=== PATIENT | male | born 1960 | race Caucasian/White ===

== ENCOUNTER 2016-04-27 03:38 | Inpatient (IN) | payer MEDICARE, OTHER ==
[2016-04-27 09:16] LABS: Glucose,Whole Blood 149 mg/dL (75-99)
[2016-04-27] MEDS ORDERED: NITROGLYCERIN SL TABS 0.4 MG TAB SUBLINGUAL PRN (09:58)
[2016-04-27] MEDS ORDERED: ACETAMINOPHEN TAB 325 MG TAB PO PRN (10:03)
[2016-04-27] MEDS ORDERED: FUROSEMIDE 20 MG TAB PO SCH (10:15)
[2016-04-27] MEDS ORDERED: LISINOPRIL 20 MG TAB PO SCH (10:15)
[2016-04-27 10:47] LABS: Basophils % (A) 0 %; CH 33.9; CHCM 32.3; Eosinophils # (A) 0.1 k/uL (0-0.7); Eosinophils % (A) 1 %; HCT 40.8 % (39.0-53.0); HDW 3.01; HGB 13.3 gm/dL (13.0-17.5); Luc # (Auto) 0.11; Luc % (Auto) 1; Lymphocytes # (A) 0.6 k/uL (1.0-4.8); Lymphocytes % (A) 6 %; MCH 34.3 pg (25.0-35.0); MCHC 32.5 g/dL (31.0-37.0); MCV 105.5 fL (80.0-100.0); Macrocytosis Moderate; Mean Platelet Volume 7.4; Monocytes # (A) 0.7 k/uL (0-1.0); Monocytes % (A) 7 %; Neutrophils # (A) 8.6 k/uL (1.3-7.7); Neutrophils % (A) 85 %; RBC 3.87 m/uL (4.30-5.90); RDW 15.2 % (11.5-15.5); WBC 10.1 k/uL (3.8-10.6); WBC (Perox) 11.61
[2016-04-27] MEDS ORDERED: HYDROmorphone 1 MG/ML 1 ML SYRINGE IVP STA (11:12)
[2016-04-27 11:19] LABS: Creatine Kinase 76 U/L (55-170)
[2016-04-27 11:29] LABS: Calcium 9.6 mg/dL (8.4-10.2); Potassium 5.3 mmol/L (3.5-5.1)
[2016-04-27 11:32] LABS: Creatine Kinase MB 0.7 ng/mL (0.0-2.4); Troponin I <0.012 ng/mL (0.000-0.034)
[2016-04-27] MEDS: HEPARIN SODIUM,PORCINE 5,000 UNIT/ML 1 ML VIAL SQ SCH ×2 (12:04→23:35)
[2016-04-27 12:07] LABS: Glucose,Whole Blood 142 mg/dL (75-99)
--- NOTE | 2016-04-27 12:37 | CONS ---
DATE OF CONSULTATION: This is a 56-year-old gentleman who apparently had a cerebral aneurysm several years ago and had paraplegia. He has full function of his bowel and bladder and also her upper extremity motor function, but is confined to a wheelchair, does not do much activity, and lives at [facility]. He has apparently had some straining effort getting out of the wheelchair and then now complains of pain in the midsternal area with tenderness over the left fifth rib or so at the costochondral junction. With these symptoms, he came into the hospital. His initial troponin was normal at [place]. His pain is very atypical. EKG apparently was unremarkable in [place]. We will repeat another EKG today. There is evidence of sinus mechanism, nonspecific T wave changes with slightly leftward axis, His initial troponin was unremarkable. He is here with a diagnosis of possible unstable angina. The pain seems atypical. The patient is relatively comfortable, and I am recommending additional troponin levels for this patient and also symptomatic treatment for his pain and subcu heparin. He is resting comfortably. PAST MEDICAL HISTORY: 1. Cerebral aneurysm 7 years ago, details unavailable apparently since then, he has developed weakness of his both lower extremities and is now confined to a wheelchair. 2. History of hypertension. 3. Type 2 diabetes mellitus. 4. Hypertension. 5. History of seizure disorder on Keppra. No documented evidence of myocardial infarction. Medications at home include: 1. Keppra. 2. Amlodipine. 3. Effexor. 4. Omeprazole. 5. Lisinopril. 6. Lantus. 7. Humalog insulin. 8. Fenofibrate. 9. Coreg 25 mg b.i.d. 10. Acetaminophen. On examination, blood pressure is 170/70, pulse rate is 70 per minute, regular. HEENT: Unremarkable. Fundus was not examined by me. Neck is supple. No JVD. I do not hear a carotid bruit. Heart exam reveals S1, S2 with somewhat distant heart sounds. No significant murmurs. Lungs are clear. ABDOMEN: Soft. There was chest wall tenderness. Lower extremities reveal diminished pulses. There is central nervous system reveals weakness of both lower extremity motor function. EKG revealed sinus mechanism, nonspecific lateral ST-T changes. Initial troponin is normal. IMPRESSION: 1. Probable musculoskeletal pain. 2. History of paraplegia following intracranial aneurysm; details unavailable. 3. Hypertension. 4. Type 2 diabetes mellitus. 5. Hypercholesterolemia. RECOMMENDATIONS: I am recommending an echocardiogram and treated with some subcu heparin and treat the pain symptomatically with a little Dilaudid and Naprosyn and based on clinical course, I will make further recommendation. Additional troponins have been ordered. Thank you very much for the consult.
--- NOTE | 2016-04-27 14:08 | XR ---
One View ChestHISTORY: CHF.COMPARISON: 05/25/2015Subsegmental changes within the left lower lobe ar e stable. HEART: Enlarged. No pneumothorax. Tiny effusions not excluded. IMPRESSION1. Left lower lobe atelectasis or infiltrate with tiny effusion. 2. Cardiomegaly
[2016-04-27] MEDS: SODIUM CHLORIDE 0.9% 1,000 ML IV SCH (15:44)
[2016-04-27 16:44] LABS: Creatine Kinase 64 U/L (55-170)
[2016-04-27 16:55] LABS: Creatine Kinase MB 0.5 ng/mL (0.0-2.4); Troponin I <0.012 ng/mL (0.000-0.034)
[2016-04-27 17:36] LABS: Glucose,Whole Blood 144 mg/dL (75-99)
[2016-04-27] MEDS ORDERED: ONDANSETRON 4 MG/2 ML VIAL IVP PRN (18:06)
[2016-04-27] MEDS: ALLOPURINOL 100 MG TAB PO SCH (20:41)
[2016-04-27] MEDS: CALCIUM CARB-VIT D 500MG-200UN 1 EACH TAB PO SCH ×2 (20:42→23:33)
[2016-04-27] MEDS: CARVEDILOL 12.5 MG TAB PO SCH ×2 (20:42→22:10)
[2016-04-27] MEDS: VENLAFAXINE HCL ER 150 MG CAP PO SCH (20:42)
[2016-04-27] MEDS: amLODIPine 5 MG TAB PO SCH ×2 (20:42→22:10)
[2016-04-27] MEDS: levETIRAcetam 500 MG TAB PO SCH ×2 (20:42→23:33)
[2016-04-27] MEDS: INSULIN LISPRO (humaLOG) 300 UNIT/3 ML VIAL SQ SCH ×3 (20:42→23:36)
[2016-04-27 20:59] LABS: Glucose,Whole Blood 149 mg/dL (75-99)
[2016-04-27] MEDS: traMADol 50 MG TAB PO PRN (22:10)
[2016-04-27] MEDS: DIVALPROEX 500 MG TABLET.DR PO SCH (23:32)
[2016-04-27] MEDS: FERROUS SULFATE 325 MG TAB PO SCH (23:32)
[2016-04-27] MEDS: ATORVASTATIN 10 MG TAB PO SCH (23:33)
[2016-04-27] MEDS: FENOFIBRATE 160 MG TAB PO SCH (23:35)
[2016-04-27] MEDS: INSULIN GLARGINE 100 UNIT/ML 10 ML VIAL SQ SCH (23:36)
[2016-04-28] MEDS: amLODIPine 5 MG TAB PO SCH ×2 (06:44→21:23)
[2016-04-28] MEDS: CARVEDILOL 12.5 MG TAB PO SCH ×2 (06:44→17:58)
[2016-04-28] MEDS: DIVALPROEX 500 MG TABLET.DR PO SCH ×2 (06:44→17:57)
[2016-04-28 06:59] LABS: Calcium 9.2 mg/dL (8.4-10.2)
[2016-04-28 07:08] LABS: Glucose,Whole Blood 158 mg/dL (75-99)
[2016-04-28] MEDS ORDERED: INSULIN REGULAR 100 UNIT/ML VIAL SQ ONE (08:20)
--- NOTE | 2016-04-28 08:20 | HP ---
DATE OF ADMISSION: The patient is a 56-year-old with history of cerebral aneurysm and paraplegia came in with complaints of chest discomfort in the midsternal area in the fifth rib cage area costochondral junction and producible chest pain. Patient denied any shortness of breath. Denied any lightheadedness associated with that. EKG is unremarkable except for some nonspecific ST-T wave changes ( ). Patient's chest pain has a bit of pleuritic component, not associated with food, not associated with fever or chills. I obtained a D-dimer, which was positive. Because of the pleuritic ( ), my suspicion is low for pulmonary embolism considering that patient is mostly immobile and my suspicion is low for DVT in the upper limbs. Anyways will go ahead and get the VQ scan. If it is negative, patient probably can be discharged tomorrow. As patient is not ambulatory, having DVT in lower limbs and embolizing it to lungs is a low possibility, but he can still have a thrombus although rare in the common iliac because of which I will go ahead and do a VQ scan. If possibility of low or intermediate, patient will not require anticoagulation in that situation. After that, patient can be discharged. Patient's baseline creatinine is around 1 and patient's creatinine now is 1.7. Patient will be treated with IV fluids for the renal failure. Patient's pulse is 136 as well. REVIEW OF SYSTEMS: CONSTITUTIONAL: No fever, no malaise, no fatigue. HEENT: No recent visual problems or hearing problems. Denied any sore throat. CARDIOVASCULAR: As described in HPI. PULMONARY: No shortness of breath, no cough, no hemoptysis. GASTROINTESTINAL: No diarrhea, no nausea, no vomiting, no abdominal pain. Normoactive bowel sounds. NEUROLOGICAL: No headaches, no weakness, no numbness. HEMATOLOGICAL: Denies any bleeding or petechiae. GENITOURINARY: Denies any burning micturition, frequency, or urgency. MUSCULOSKELETAL/RHEUMATOLOGICAL: Denies any joint pain, swelling, or any muscle pain. ENDOCRINE: Denies any polyuria or polydipsia. The rest of the 14 point review of systems is negative. PAST MEDICAL HISTORY: Paraplegia, cerebral aneurysm, hypertension, type 2 diabetes mellitus, seizure disorder. The patient is on Keppra. Home medications include: 1. Keppra. 2. Amlodipine. 3. Effexor. 4. Lisinopril. 5. Lantus. 6. Humalog. 7. Fenofibrate. 8. Coreg. 9. Acetaminophen. FAMILY HISTORY: Unknown at this time. PHYSICAL EXAMINATION: Temperature 98.8, pulse is 136, respiratory rate 18, blood pressure 156/80, saturating at 93% on 2 L of O2 by nasal cannula. GENERAL: The patient is alert and oriented x3, not in any acute distress. Well developed, well nourished. HEENT: Pupils are round and equally reacting to light. EOMI. No scleral icterus. No conjunctival pallor. Normocephalic, atraumatic. No pharyngeal erythema. No thyromegaly. CARDIOVASCULAR: S1 and S2 present. No murmurs, rubs, or gallops. PULMONARY: Chest examination, patient's breath sounds are present bilaterally. No wheezing was appreciated. The patient does have ( ). ABDOMEN: Soft, nontender, nondistended, normoactive bowel sounds. No palpable organomegaly. MUSCULOSKELETAL: No joint swelling or deformity. EXTREMITIES: No cyanosis, clubbing, or pedal edema. NEUROLOGICAL: Patient has chronic bilateral lower limb weakness and patient has neurogenic bladder and does have some contractures. SKIN: No rashes. EKG as mentioned above. CBC, CMP are abnormal for elevated creatinine as mentioned above and potassium is 5.3 because of which lisinopril will be held and diuretic therapy will be held. ASSESSMENT AND PLAN: 1. Chest pain which appears to be musculoskeletal. Patient will be started on tramadol for ( ). 2. Acute renal failure, possibly due to excessive diuretic therapy. 3. Hyperkalemia due to acute renal failure and lisinopril because of which lisinopril will be held. Diuretic therapy will be held and patient will be started on IV fluids. 4. Elevated D-dimer with some questionable pleuritic chest pain because of which I will obtain a VQ scan, although possibility of ( ) for pulmonary embolism is low. 5. Considering tachycardia, I wanted to go ahead and get the test and assess ( ) tachycardia from not taking his metoprolol, which we will resume. 6. With the suspicion of gastroesophageal reflux disease as well because of which patient was started on Protonix, which will be continued. 7. Acute on chronic renal failure stage II. Acute renal failure secondary to diuretic therapy as mentioned above. 8. Hyperlipidemia. 9. Paraplegia. Supportive care for that. Repeat electrolytes tomorrow, IV fluids today. Will try and give him symptomatic treatment for nausea including resume his home medications hopefully that will improve his tachycardia.
[2016-04-28] MEDS ORDERED: SODIUM POLYSTYRENE SULFONATE 15 GM/60 ML BOTTLE PO STA (08:25)
[2016-04-28] MEDS ORDERED: ALBUTEROL NEBULIZED 2.5 MG/3 ML INHALATION PRN (08:30)
[2016-04-28] MEDS ORDERED: DEXTROSE 50%-WATER 50 ML SYRINGE IVP STA ×2 (08:36→18:10)
[2016-04-28] MEDS ORDERED: SODIUM BICARB 8.4% 50 ML SYR (1 MEQ/ML) IV STA ×2 (08:48→18:11)
[2016-04-28 08:58] LABS: CH 34.8; CHCM 31.6; HCT 45.3 % (39.0-53.0); HDW 2.88; HGB 13.6 gm/dL (13.0-17.5); Hypochromasia Slight; Immature Gran Flag Marked; MCH 33.3 pg (25.0-35.0); MCHC 30.1 g/dL (31.0-37.0); Macrocytosis Marked; Mean Platelet Volume 8.8; RBC 4.09 m/uL (4.30-5.90); RDW 15.8 % (11.5-15.5); WBC 16.4 k/uL (3.8-10.6); WBC (Perox) 17.34
[2016-04-28 08:59] LABS: MCV 110.6 fL (80.0-100.0)
[2016-04-28] MEDS ORDERED: CALCIUM GLUCONATE 1,000 MG in SODIUM CHLORIDE 0.9% 100 ML IVPB ONE (09:00)
--- NOTE | 2016-04-28 09:37 | NM ---
EXAMINATION TYPE: NM pul perfusion DATE OF EXAM: 04/28/2016 9:27 AM COMPARISON: 04/27/2016 HISTORY: Chest pain Following administration of 5.4 mCi mCi Tc 99m MAA. Images obtained post injection. FINDINGS: Patient only complete the perfusion exam. Peripheral perfusion defects involving the right upper lobe are suggested. IMPRESSION: Probability assessment is nondiagnostic due to the patient's inability complete ventilation images. T here are perfusion abnormalities involving the right upper and middle lobe. Pulmonary embolism not ex cluded.
[2016-04-28 09:58] LABS: Add Differential Manual Differential
--- NOTE | 2016-04-28 10:06 | CT ---
EXAMINATION TYPE: CT abdomen pelvis wo con DATE OF EXAM: 04/28/2016 9:55 AM COMPARISON: NONE HISTORY: Pt pain increase when he takes a deep breath and when you touch the center of his chest. Pt admitted with fever, dehydration, urosepsis and confusion. h/o Cerebral aneurysm with rupture. CT DLP: 1519 mGycm FINDINGS: LUNG BASES: No evidence for nodule. There is evidence of bony basilar atelectasis and small effusions bilaterally left greater than right. LIVER/GB: The gallbladder is unremarkable. No space-occupying hepatic lesion. PANCREAS: No pancreatic mass identified. There is thickening the body of the pancreas with peripancre atic inflammatory change and fluid noted compatible with pancreatitis. Correlate with amylase and lip ase. SPLEEN: No evidence for splenomegaly. No intrasplenic lesions seen. ADRENALS: No adrenal nodules identified. No evidence for thickening. KIDNEYS: Bilateral renal cortical cysts noted the largest in the lower pole of the left kidney measur es 3.6 cm. No nephrolithiasis. No hydronephrosis. Urinary bladder wall thickening which is incomplete ly distended. BOWEL: Appendix has a normal appearance. No evidence of bowel obstruction. No inflammatory process. Lymph nodes: No evidence for adenopathy greater than 1 cm. Abdominal aorta: Atheromatous changes seen. No evidence for aneurysm. Genital organs: No significant abnormality. Other: No significant abnormality. Bony structures: Jugular changes lumbar spine. Severe degenerative changes bilateral hips. IMPRESSION: 1. FINDINGS FELT TO REFLECT ACUTE PANCREATITIS. CORRELATE WITH AMYLASE AND LIPASE. 2. URINARY BLADDER WALL THICKENING COULD BE RELATED TO POOR DISTENTION ALTHOUGH UNDERLYING CYSTITIS O R OTHER PROCESS NOT EXCLUDED.
[2016-04-28 10:09] LABS: Metamyelocytes % 5.5 %; Nucleated Red Blood Cells 0 /100 WBC (0-0); Total Cells Counted 200
[2016-04-28 10:10] LABS: Manual Review Performed
[2016-04-28 10:11] LABS: Polychromasia Present
[2016-04-28] MEDS: levETIRAcetam 500 MG TAB PO SCH ×2 (10:24→17:58)
[2016-04-28] MEDS: INSULIN LISPRO (humaLOG) 300 UNIT/3 ML VIAL SQ SCH ×3 (10:25→17:59)
[2016-04-28] MEDS: ALLOPURINOL 100 MG TAB PO SCH (10:29)
[2016-04-28] MEDS: PANTOPRAZOLE 40 MG TABLET PO SCH (10:32)
[2016-04-28] MEDS: ASPIRIN 325 MG TAB PO SCH (10:32)
[2016-04-28] MEDS: CALCIUM CARB-VIT D 500MG-200UN 1 EACH TAB PO SCH ×2 (10:33→21:23)
[2016-04-28] MEDS: VENLAFAXINE HCL ER 150 MG CAP PO SCH (10:34)
[2016-04-28] MEDS: HEPARIN SODIUM,PORCINE 5,000 UNIT/ML 1 ML VIAL SQ SCH (10:36)
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
[2016-04-28] MEDS: ALBUTEROL NEBULIZED 2.5 MG/3 ML INHALATION SCH ×3 (11:16→20:09)
[2016-04-28 11:23] LABS: Total Protein 5.9 g/dL (6.3-8.2)
[2016-04-28 11:30] LABS: Glucose,Whole Blood 189 mg/dL (75-99)
[2016-04-28] MEDS ORDERED: SODIUM CHLORIDE 0.9% 1,000 ML IV SCH (11:45)
[2016-04-28] MEDS ORDERED: LACTATED RINGERS 1,000 ML IV ONE (11:45)
[2016-04-28] MEDS ORDERED: CALCIUM CHLORIDE 100 MG/ML 10 ML SYRINGE ONE (12:00)
[2016-04-28] MEDS ORDERED: ATROPINE SULFATE 0.1 MG/ML 10ML SYRINGE ONE (12:00)
[2016-04-28] MEDS ORDERED: EPINEPHrine 10 ML SYRINGE (0.1 MG/ML) ONE (12:00)
[2016-04-28] MEDS ORDERED: MEROPENEM 1 GM in SODIUM CHLORIDE 0.9% 100 ML IVPB SCH (12:00)
[2016-04-28] MEDS ORDERED: MIDAZOLAM (PF) 1 MG/ML 5 ML VIAL ONE (12:00)
[2016-04-28 12:33] LABS: Glucose,Whole Blood 167 mg/dL (75-99)
[2016-04-28] MEDS: FOLIC ACID 1 MG TAB PO SCH (12:56)
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
[2016-04-28 13:35] LABS: Hemoglobin A1C 6.9 % (4.2-6.1)
[2016-04-28] MEDS ORDERED: HEPARIN SODIUM,PORCINE 10,000 UNIT/ML 1 ML VIAL IV PRN (13:54)
[2016-04-28] MEDS: SODIUM CHLORIDE 0.9% 1,000 ML IV SCH ×3 (14:01→16:41)
[2016-04-28] MEDS: traMADol 50 MG TAB PO PRN (14:11)
[2016-04-28] MEDS: HEPARIN SODIUM,PORCINE/D5W PMX 25,000 UNIT in DEXTROSE/WATER 1 500ML.BAG IV SCH (14:13)
--- NOTE | 2016-04-28 14:14 | P.GSCN ---
History of Present Illness Consult date: 04/28/16 Reason for Consult: Abdominal pain Requesting physician: Mary Garzon History of present illness: Patient is a 56-year-old male referred from Dr. Munoz for complaints of abdominal pain with evidence of acute pancreatitis on computed tomography scan. Medical history significant for diabetes mellitus, GERD, hyperlipidemia, and diverticulitis. Patient reports abdominal pain for approximately 2 weeks associated with nausea but no vomiting. No history of gastric ulcer disease. Patient states pain is mostly epigastric and exacerbated after eating. Patient states last bowel movement 2 days ago. Denies constipation or diarrhea. Denies melena or hematochezia. Labs from today reveal a WBC of 16.4, potassium of 6, BUN 43, creatinine 3.5, plasma lactic acid venous 2.4, amylase 632, lipase 13,509. Afebrile. Patient tachycardic with heart rate in 120s to 130s, blood pressure stable. Past Medical History Past Medical History: Coronary Artery Disease (CAD), Heart Failure, CVA/TIA, Diabetes Mellitus, GERD/Reflux, Hyperlipidemia, Hypertension, Osteoarthritis (OA ), Seizure Disorder, Vascular Disorder Additional Past Medical History / Comment(s): 05/20/15 Pt is a transfer from [facility] where he had presented to their ER from [facility] with AMS , confusion, fever, dehydration, urosepsis, anemia, PVD, gout and renal insufficiency. He is admitted here with cellulitis R leg/osteomylitis. Other HX: Cerebral aneurysm rupture with L EVA territory infarct which resulted in paraplegia and incontinence, bilateral upper extremity essential tremors, R lower extremity cellulitis with ascending lymphangitis in past, IDDM , cardiomyopathy, 08/2010 echo with EF 50-55%, sacral decubitus, healed R posterior thigh pressure ulcer scar, diverticulitis, anemia, sinusitis, UTI's Last Myocardial Infarction Date:: unkn History of Any Multi-Drug Resistant Organisms: None Reported Additional Past Surgical History / Comment(s): Peg tube insertion and removal, cerebral coils (embolized), Past Anesthesia/Blood Transfusion Reactions: No Reported Reaction Past Psychological History: Anxiety, Depression Additional Psychological History / Comment(s): Pt resides at [facility]. He is wheelchair bound. They use a calista lift to get pt into chair. He feeds himself. He needs assist with other ADLs. 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 Was a tobacco smoker until 2007. Denied significant alcohol use. Relates that he is single. No experience. No animal exposures. No international travel. Smoking Status: Former smoker Past Alcohol Use History: None Reported Additional Past Alcohol Use History / Comment(s): Pt quit smoking in 2007. He started smoking as a teen. Past Drug Use History: None Reported - Past Family History Father Family Medical History: No Reported History Additional Family Medical History / Comment(s): Pt states father was healthy up until his at age 90yrs. Mother Family Medical History: CVA/TIA Additional Family Medical History / Comment(s): Pt's mother at age 48yrs of a CVA Medications and Allergies Home Medications Medication Instructions Recorded Confirmed Type Acetaminophen Tab [Tylenol] 650 mg PO BID 05/20/15 04/27/16 History Furosemide [Lasix] 20 mg PO DAILY 05/20/15 04/27/16 History Insulin Glargine [Lantus] 60 unit SQ HS@2100 05/20/15 04/27/16 History amLODIPine [Norvasc] 5 mg PO BID 05/20/15 04/27/16 History Calcium Carb-Vit D 500Mg-200Un 1 tab PO BID 05/26/15 04/27/16 History [Oscal 500+D] Carvedilol [Coreg] 25 mg PO BID 05/26/15 04/27/16 History Acetaminophen [Tylenol] 650 mg PO Q6H PRN 04/27/16 04/27/16 History Atorvastatin [Lipitor] 10 mg PO HS@2100 04/27/16 04/27/16 History CHLORPHEN-HYDROcod 8-10mg/5ml 10 ml PO Q4H PRN 04/27/16 04/27/16 History [Tussionex] Divalproex Sodium [Depakote] 1,500 mg PO DAILY@0600 04/27/16 04/27/16 History Divalproex [Depakote] 1,000 mg PO DAILY@1700 04/27/16 04/27/16 History Ergocalciferol [Vitamin D2] 50,000 unit PO FR 04/27/16 04/27/16 History Fenofibrate 160 mg PO HS 04/27/16 04/27/16 History Ferrous Sulfate [Feosol] 325 mg PO DAILY@1700 04/27/16 04/27/16 History Folic Acid 1 mg PO DAILY 04/27/16 04/27/16 History INSULIN LISPRO (HumaLOG) [humaLOG] See Protocol SQ ACHS 04/27/16 04/27/16 History Omeprazole 20 mg PO DAILY 04/27/16 04/27/16 History Venlafaxine HCl [Effexor XR] 150 mg PO DAILY 04/27/16 04/27/16 History levETIRAcetam [Keppra] 1,000 mg PO DAILY@1700 04/27/16 04/27/16 History levETIRAcetam [Keppra] 1,500 mg PO QAM 04/27/16 04/27/16 History Allergies Allergy/AdvReac Type Severity Reaction Status Date / Time Iodinated Contrast Media - Allergy Unknown Verified 04/27/16 07:46 Oral and NSAIDS (Non-Steroidal Allergy Unknown Verified 04/27/16 07:46 Anti-Inflamma sodium phosphate AdvReac Unknown Verified 04/27/16 07:46 [From [employer]] Surgical - Exam Vital Signs Temp Pulse Resp BP Pulse Ox 97.5 F L 94 18 182/86 97 04/27/16 08:00 04/27/16 08:00 04/27/16 08:00 04/27/16 08:00 04/27/16 08:00 GENERAL: Pt awake and alert, well-nourished, appears in mild distress. EYES: Pupils equal, round, and reactive to light, extraocular movements intact, sclera anicteric, conjunctiva are normal. ENT: Moist mucous membranes. NECK:Supple without lymphadenopathy or JVD. LUNGS: Breath sounds clear to auscultation bilaterally. No wheezes, rales, or rhonchi. HEART: Heart S1, S2, no S3 or S4. No murmurs, rubs or gallops. Patient tachycardic. ABDOMEN: Soft, obese, diffuse tenderness, mildly distended, hypoactive bowel sounds. Voluntary guarding. EXTREMITIES: 2+ peripheral pulses. Bilateral pedal edema. NEUROLOGICAL: Pt oriented x 3. Results - Labs 04/28/16 06:08 04/28/16 06:08 Abnormal Lab Results - Last 24 Hours (Table) 04/27/16 04/27/16 04/27/16 Range/Units 10:33 17:32 20:49 WBC (3.8-10.6) k/uL RBC (4.30-5.90) m/uL MCV (80.0-100.0) fL MCHC (31.0-37.0) g/dL RDW (11.5-15.5) % Neutrophils # (Manual) (1.3-7.7) k/uL D-Dimer 2.06 H (<0.60) mg/L FEU Potassium (3.5-5.1) mmol/L BUN (9-20) mg/dL Creatinine (0.66-1.25) mg/dL Glucose (74-99) mg/dL POC Glucose (mg/dL) 144 H 149 H (75-99) mg/dL Hemoglobin A1c (4.2-6.1) % Plasma Lactic Acid Clay (0.7-2.0) mmol/L Total Protein (6.3-8.2) g/dL Albumin (3.5-5.0) g/dL Triglycerides (<150) mg/dL HDL Cholesterol (40-60) mg/dL Amylase (30-110) U/L Lipase (23-300) U/L 04/28/16 04/28/16 04/28/16 Range/Units 06:08 06:08 07:01 WBC 16.4 H (3.8-10.6) k/uL RBC 4.09 L (4.30-5.90) m/uL MCV 110.6 H D (80.0-100.0) fL MCHC 30.1 L (31.0-37.0) g/dL RDW 15.8 H (11.5-15.5) % Neutrophils # (Manual) 12.3 H (1.3-7.7) k/uL D-Dimer (<0.60) mg/L FEU Potassium 6.0 H (3.5-5.1) mmol/L BUN 43 H (9-20) mg/dL Creatinine 3.50 H (0.66-1.25) mg/dL Glucose 160 H (74-99) mg/dL POC Glucose (mg/dL) 158 H (75-99) mg/dL Hemoglobin A1c (4.2-6.1) % Plasma Lactic Acid Clay (0.7-2.0) mmol/L Total Protein 5.9 L (6.3-8.2) g/dL Albumin 3.2 L (3.5-5.0) g/dL Triglycerides 235 H (<150) mg/dL HDL Cholesterol 27 L (40-60) mg/dL Amylase 632 H* (30-110) U/L Lipase 10722 H (23-300) U/L 04/28/16 04/28/16 04/28/16 Range/Units 10:44 10:44 11:14 WBC (3.8-10.6) k/uL RBC (4.30-5.90) m/uL MCV (80.0-100.0) fL MCHC (31.0-37.0) g/dL RDW (11.5-15.5) % Neutrophils # (Manual) (1.3-7.7) k/uL D-Dimer (<0.60) mg/L FEU Potassium (3.5-5.1) mmol/L BUN (9-20) mg/dL Creatinine (0.66-1.25) mg/dL Glucose (74-99) mg/dL POC Glucose (mg/dL) 189 H (75-99) mg/dL Hemoglobin A1c 6.9 H (4.2-6.1) % Plasma Lactic Acid Clay 2.4 H* (0.7-2.0) mmol/L Total Protein (6.3-8.2) g/dL Albumin (3.5-5.0) g/dL Triglycerides (<150) mg/dL HDL Cholesterol (40-60) mg/dL Amylase (30-110) U/L Lipase (23-300) U/L 04/28/16 Range/Units 12:20 WBC (3.8-10.6) k/uL RBC (4.30-5.90) m/uL MCV (80.0-100.0) fL MCHC (31.0-37.0) g/dL RDW (11.5-15.5) % Neutrophils # (Manual) (1.3-7.7) k/uL D-Dimer (<0.60) mg/L FEU Potassium (3.5-5.1) mmol/L BUN (9-20) mg/dL Creatinine (0.66-1.25) mg/dL Glucose (74-99) mg/dL POC Glucose (mg/dL) 167 H (75-99) mg/dL Hemoglobin A1c (4.2-6.1) % Plasma Lactic Acid Clay (0.7-2.0) mmol/L Total Protein (6.3-8.2) g/dL Albumin (3.5-5.0) g/dL Triglycerides (<150) mg/dL HDL Cholesterol (40-60) mg/dL Amylase (30-110) U/L Lipase (23-300) U/L Diabetes panel 04/28/16 04/28/16 Range/Units 06:08 10:44 Sodium 143 (137-145) mmol/L Potassium 6.0 H (3.5-5.1) mmol/L Chloride 104 (98-107) mmol/L Carbon Dioxide 24 (22-30) mmol/L BUN 43 H (9-20) mg/dL Creatinine 3.50 H (0.66-1.25) mg/dL Glucose 160 H (74-99) mg/dL Hemoglobin A1c 6.9 H (4.2-6.1) % Calcium 9.2 (8.4-10.2) mg/dL AST 49 (17-59) U/L ALT 32 (21-72) U/L Alkaline Phosphatase 77 (38-126) U/L Total Protein 5.9 L (6.3-8.2) g/dL Albumin 3.2 L (3.5-5.0) g/dL Triglycerides 235 H (<150) mg/dL HDL Cholesterol 27 L (40-60) mg/dL Calcium panel 04/28/16 Range/Units 06:08 Calcium 9.2 (8.4-10.2) mg/dL Albumin 3.2 L (3.5-5.0) g/dL Pituitary panel 04/28/16 Range/Units 06:08 Sodium 143 (137-145) mmol/L Potassium 6.0 H (3.5-5.1) mmol/L Chloride 104 (98-107) mmol/L Carbon Dioxide 24 (22-30) mmol/L BUN 43 H (9-20) mg/dL Creatinine 3.50 H (0.66-1.25) mg/dL Glucose 160 H (74-99) mg/dL Calcium 9.2 (8.4-10.2) mg/dL Adrenal panel 04/28/16 Range/Units 06:08 Sodium 143 (137-145) mmol/L Potassium 6.0 H (3.5-5.1) mmol/L Chloride 104 (98-107) mmol/L Carbon Dioxide 24 (22-30) mmol/L BUN 43 H (9-20) mg/dL Creatinine 3.50 H (0.66-1.25) mg/dL Glucose 160 H (74-99) mg/dL Calcium 9.2 (8.4-10.2) mg/dL Total Bilirubin 1.0 (0.2-1.3) mg/dL AST 49 (17-59) U/L ALT 32 (21-72) U/L Alkaline Phosphatase 77 (38-126) U/L Total Protein 5.9 L (6.3-8.2) g/dL Albumin 3.2 L (3.5-5.0) g/dL - Imaging CT scan - abdomen: report reviewed (No pancreatic mass identified. Thickening of the body of the pancreas with. Pancreatic inflammatory change and fluid noted compatible with pancreatitis.) CT scan - pelvis: report reviewed Assessment and Plan Plan: Impression: 1. Abdominal , present on admission, suspect secondary to acute pancreatitis according to CT of abdomen and elevated amylase and lipase. Plan: 1. Give patient a fluid bolus of 1 L of lactated Ringer's and increase IV solution to 150 mL an hour. Keep patient nothing by mouth. Continue supportive treatment and pain management. Repeat CBC, BMP, amylase and lipase in a.m. The above impression and plan have been discussed and directed by Dr. Murry. Dayana VICENTE acting as scribe for Dr. Murry.
[2016-04-28] MEDS: MEROPENEM 1 GM in SODIUM CHLORIDE 0.9% 100 ML IVPB SCH (14:15)
--- NOTE | 2016-04-28 14:25 | PN ---
Mr. Tariq this morning complains of significant abdominal pain. His d-dimer is elevated and is going for a V/Q scan. However, his urine output has decreased and his creatinine is increased. Potassium is elevated. He has complaints of abdominal discomfort. Troponin levels are normal. EKG reveals a sinus tachycardia without acute changes. I am concerned that we may be dealing with an acute abdomen-type picture. I am requesting a surgical evaluation. A CAT scan of the abdomen without contrast and also a V/Q scan. I discussed my thoughts in detail with the nurse practitioner, Trista who works with Dr. Munoz. Heart rate is about 124 beats per minute. Blood pressure is 140/70. Patient is tachycardia, JVD 1 cm, no carotid bruit. S1, S2 heard with tachycardia, short systolic murmur. Lungs are clear. Abdomen is tender, diminished bowel sounds. Rest of physical examination unchanged. Acute Abdomen and or Pancreatitis should be considered. RECOMMENDATIONS: Surgical evaluation, CAT scan of the abdomen without contrast. Agree with perfusion scan of the lungs. Await results of the echocardiogram. Advised Amylase,Lipase, no Heparin. Prognosis remains guarded. MTDD
--- NOTE | 2016-04-28 14:33 | XR ---
EXAMINATION TYPE: XR abdomen acute w cxr DATE OF EXAM: 04/28/2016 2:19 PM COMPARISON: 04/27/2016 HISTORY: Abdominal distention TECHNIQUE: Single view of the chest and 3 views of the abdomen are submitted. FINDINGS: Single view of the chest demonstrates left lower lobe consolidation and small effusion. Limited inspi ration is seen. The heart remains enlarged. No obvious pneumothorax. There is a gastric distention and a dilated bowel loop in the midabdomen. Partial obstruction of the differential. Severe arthropathy of the hip joints and hypertrophic change of the spine. IMPRESSION: Left lower lobe infiltrate and small effusion There is marked distention of stomach and a bowel loop in the mid abdomen. Underlying obstruction or localized ileus in the differential.
[2016-04-28 15:33] LABS: INR 1.3 (<1.1); Prothrombin Time 12.6 sec (9.0-12.0)
--- NOTE | 2016-04-28 15:44 | P.CONS ---
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 Patient is known to ID service as he was seen in May 2015 at which time he was treated for cellulitis of the right lower extremity. At that time he underwent duplex study that was negative for DVT, x-ray that showed potential for abscess and CAT scan of the lower extremity was done that failed to reveal an abscess and was negative for osteomyelitis. He was treated with local wound care with Silvadene and he was discharged on oral Bactrim. Patient currently resides at [facility]. He states he had a sudden onset of chest pain on the left side while he was watching TV. It was sharp with a 5 out of 10 with mild shortness of breath. Patient was transferred to [facility] where he received 4 baby aspirin and 3 nitroglycerin that did not change his pain. His d -dimer was slightly elevated at 0.73. BUN was 26 and creatinine 1.8. It appears patient's baseline creatinine is 1.5-1.7. He was afebrile. Troponin was 0.017. He was given 1 L of IV fluids and there was concern for pulmonary embolism and patient was transferred to [facility] for VQ scan. Patient was admitted to the selective care unit. Unfortunately he was unable to complete the VQ scan. However, venous Dopplers of the bilateral lower extremities were positive on both sides. He underwent a chest x-ray that showed left lower lobe atelectasis or infiltrate and cardiomegaly. CAT scan of the abdomen and pelvis revealed acute pancreatitis. He subsequently underwent x -ray films that showed possible obstruction or ileus. Patient's last bowel movement was apparently 2 days ago. Repeat lab work showed leukocytosis of 16.4 , lactic acid 2.4 and BUN 43 with creatinine 3.5. Albumin 3.2. Potassium was 6.06 and he is status post Kayexalate. His heart rate has been running 120-130 since admission. He has the following consultations in place cardiology, pulmonary medicine, nephrology, surgery. Amylase was 632 and lipase 13,509. Patient continues to have left upper quadrant lower rib pain. He does complain of nausea without vomiting. He denies any diarrhea. He denies any cough or sputum reduction. He states he has shortness of breath all the time and he normally has rapid respirations per the patient area he denies any problems with his legs that he is aware of. He is incontinent of urine. Review of Systems All systems: negative Constitutional: Denies chills, Denies fever Eyes: denies blurred vision, denies pain Ears, nose, mouth and throat: Denies headache, Denies sore throat Cardiovascular: Denies chest pain, Denies shortness of breath Respiratory: Denies cough Gastrointestinal: Reports abdominal pain, Reports nausea, Denies diarrhea, Denies vomiting Genitourinary: Reports incontinence Musculoskeletal: Denies myalgias Integumentary: Denies pruritus, Denies rash Neurological: Denies numbness, Denies weakness Psychiatric: Denies anxiety, Denies depression Endocrine: Denies fatigue, Denies weight change Past Medical History Past Medical History: Coronary Artery Disease (CAD), Heart Failure, CVA/TIA, Diabetes Mellitus, GERD/Reflux, Hyperlipidemia, Hypertension, Osteoarthritis (OA ), Seizure Disorder, Vascular Disorder Additional Past Medical History / Comment(s): 05/20/15 Pt is a transfer from [facility] where he had presented to their ER from [facility] with AMS , confusion, fever, dehydration, urosepsis, anemia, PVD, gout and renal insufficiency. He is admitted here with cellulitis R leg/osteomylitis. Other HX: Cerebral aneurysm rupture with L EVA territory infarct which resulted in paraplegia and incontinence, bilateral upper extremity essential tremors, R lower extremity cellulitis with ascending lymphangitis in past, IDDM , cardiomyopathy, 08/2010 echo with EF 50-55%, sacral decubitus, healed R posterior thigh pressure ulcer scar, diverticulitis, anemia, sinusitis, UTI's Last Myocardial Infarction Date:: unkn History of Any Multi-Drug Resistant Organisms: None Reported Additional Past Surgical History / Comment(s): Peg tube insertion and removal, cerebral coils (embolized), Past Anesthesia/Blood Transfusion Reactions: No Reported Reaction Past Psychological History: Anxiety, Depression Additional Psychological History / Comment(s): Pt resides at [facility]. He is wheelchair bound. They use a calista lift to get pt into chair. He feeds himself. He needs assist with other ADLs. 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 Was a tobacco smoker until 2007. Denied significant alcohol use. Relates that he is single. No experience. No animal exposures. No international travel. Smoking Status: Former smoker Past Alcohol Use History: None Reported Additional Past Alcohol Use History / Comment(s): Pt quit smoking in 2007. He started smoking as a teen. Past Drug Use History: None Reported - Past Family History Father Family Medical History: No Reported History Additional Family Medical History / Comment(s): Pt states father was healthy up until his at age 90yrs. Mother Family Medical History: CVA/TIA Additional Family Medical History / Comment(s): Pt's mother at age 48yrs of a CVA Medications and Allergies Home Medications Medication Instructions Recorded Confirmed Type Acetaminophen Tab [Tylenol] 650 mg PO BID 05/20/15 04/27/16 History Furosemide [Lasix] 20 mg PO DAILY 05/20/15 04/27/16 History Insulin Glargine [Lantus] 60 unit SQ HS@2100 05/20/15 04/27/16 History amLODIPine [Norvasc] 5 mg PO BID 05/20/15 04/27/16 History Calcium Carb-Vit D 500Mg-200Un 1 tab PO BID 05/26/15 04/27/16 History [Oscal 500+D] Carvedilol [Coreg] 25 mg PO BID 05/26/15 04/27/16 History Acetaminophen [Tylenol] 650 mg PO Q6H PRN 04/27/16 04/27/16 History Atorvastatin [Lipitor] 10 mg PO HS@2100 04/27/16 04/27/16 History CHLORPHEN-HYDROcod 8-10mg/5ml 10 ml PO Q4H PRN 04/27/16 04/27/16 History [Tussionex] Divalproex Sodium [Depakote] 1,500 mg PO DAILY@0600 04/27/16 04/27/16 History Divalproex [Depakote] 1,000 mg PO DAILY@1700 04/27/16 04/27/16 History Ergocalciferol [Vitamin D2] 50,000 unit PO FR 04/27/16 04/27/16 History Fenofibrate 160 mg PO HS 04/27/16 04/27/16 History Ferrous Sulfate [Feosol] 325 mg PO DAILY@1700 04/27/16 04/27/16 History Folic Acid 1 mg PO DAILY 04/27/16 04/27/16 History INSULIN LISPRO (HumaLOG) [humaLOG] See Protocol SQ ACHS 04/27/16 04/27/16 History Omeprazole 20 mg PO DAILY 04/27/16 04/27/16 History Venlafaxine HCl [Effexor XR] 150 mg PO DAILY 04/27/16 04/27/16 History levETIRAcetam [Keppra] 1,000 mg PO DAILY@1700 04/27/16 04/27/16 History levETIRAcetam [Keppra] 1,500 mg PO QAM 04/27/16 04/27/16 History Allergies Allergy/AdvReac Type Severity Reaction Status Date / Time Iodinated Contrast Media - Allergy Unknown Verified 04/27/16 07:46 Oral and NSAIDS (Non-Steroidal Allergy Unknown Verified 04/27/16 07:46 Anti-Inflamma sodium phosphate AdvReac Unknown Verified 04/27/16 07:46 [From [employer]] Physical Exam Vitals: Vital Signs Temp Pulse Pulse Resp BP Pulse Ox 04/28/16 12:00 98.1 F 130 H 20 116/72 92 L 04/28/16 11:25 128 H 04/28/16 11:17 120 H 04/28/16 08:00 130 H 20 04/28/16 04:40 145 H 18 04/28/16 04:00 98.4 F 145 H 18 146/69 93 L 04/27/16 23:52 98.2 F 135 H 16 144/67 93 L 04/27/16 20:00 130 H 18 04/27/16 19:40 98.6 F 136 H 18 156/80 93 L 04/27/16 16:25 18 04/27/16 15:48 98.1 F 132 H 16 186/83 97 Intake and Output 04/28/16 04/28/16 04/28/16 06:59 14:59 22:59 Intake Total 240 860 Balance 240 860 Intake: IV 240 800 Sodium Chloride 0.9% 1, 240 800 000 ml @ 100 mls/hr IV . Q10H LUIS MANUEL Rx#:[id number] Oral 60 Other: Voiding Method Diaper Diaper # Voids 4 Gen: This is a obese 56-year-old male. He is laying in bed and noted to have rapid respirations but is able to speak in sentences HEENT: Head is atraumatic, normocephalic. Pupils equal, round. Sclerae is anicteric. Conjunctiva pink. Mucous membranes of the mouth are moist. No thrush noted. NECK: Supple. No JVD. No lymphadenopathy. No thyromegaly. LUNGS: Clear to auscultation. No wheezes or rhonchi. No intercostal retractions. HEART: Regular rate and rhythm. No murmur. ABDOMEN: Slightly distended. Bowel sounds are present. Generalized tenderness to the entire abdomen with significant tenderness to the left upper quadrant EXTREMITIES: Trace bilateral pedal edema. No erythema or wounds noted to the bilateral lower extremities NEUROLOGICAL: Patient is awake, alert and oriented x3. Results Results: Laboratory Results WBC 16.4 k/uL (3.8-10.6) H 04/28/16 06:08 RBC 4.09 m/uL (4.30-5.90) L 04/28/16 06:08 Hgb 13.6 gm/dL (13.0-17.5) 04/28/16 06:08 Hct 45.3 % (39.0-53.0) 04/28/16 06:08 MCV 110.6 fL (80.0-100.0) H D 04/28/16 06:08 MCH 33.3 pg (25.0-35.0) 04/28/16 06:08 MCHC 30.1 g/dL (31.0-37.0) L 04/28/16 06:08 RDW 15.8 % (11.5-15.5) H 04/28/16 06:08 Plt Count 323 k/uL (150-450) 04/28/16 06:08 Neutrophils % 85 % 04/27/16 10:33 Neutrophils % (Manual) 54.0 % 04/28/16 06:08 Band Neutrophils % 21.0 % 04/28/16 06:08 Lymphocytes % 6 % 04/27/16 10:33 Lymphocytes % (Manual) 12.0 % 04/28/16 06:08 Monocytes % 7 % 04/27/16 10:33 Monocytes % (Manual) 5.5 % 04/28/16 06:08 Eosinophils % 1 % 04/27/16 10:33 Basophils % 0 % 04/27/16 10:33 Metamyelocytes % 5.5 % 04/28/16 06:08 Myelocytes % 2.0 % 04/28/16 06:08 Neutrophils # 8.6 k/uL (1.3-7.7) H 04/27/16 10:33 Neutrophils # (Manual) 12.3 k/uL (1.3-7.7) H 04/28/16 06:08 Lymphocytes # 0.6 k/uL (1.0-4.8) L 04/27/16 10:33 Lymphocytes # (Manual) 2.0 k/uL (1.0-4.8) 04/28/16 06:08 Monocytes # 0.7 k/uL (0-1.0) 04/27/16 10:33 Monocytes # (Manual) 0.9 k/uL (0-1.0) 04/28/16 06:08 Eosinophils # 0.1 k/uL (0-0.7) 04/27/16 10:33 Basophils # 0.0 k/uL (0-0.2) 04/27/16 10:33 Nucleated RBCs 0 /100 WBC (0-0) 04/28/16 06:08 Manual Slide Review Performed 04/28/16 06:08 Polychromasia Present 04/28/16 06:08 Hypochromasia Slight 04/28/16 06:08 Anisocytosis (manual) Present 04/28/16 06:08 Macrocytosis Marked 04/28/16 06:08 PT 12.6 sec (9.0-12.0) H 04/28/16 15:00 INR 1.3 (<1.1) 04/28/16 15:00 D-Dimer 2.06 mg/L FEU (<0.60) H 04/27/16 10:33 Sodium 143 mmol/L (137-145) 04/28/16 06:08 Potassium 6.0 mmol/L (3.5-5.1) H 04/28/16 06:08 Chloride 104 mmol/L (98-107) 04/28/16 06:08 Carbon Dioxide 24 mmol/L (22-30) 04/28/16 06:08 Anion Gap 15 mmol/L 04/28/16 06:08 BUN 43 mg/dL (9-20) H 04/28/16 06:08 Creatinine 3.50 mg/dL (0.66-1.25) H 04/28/16 06:08 Est GFR (MDRD) Af Amer 22 (>60 ml/min/1.73 sqM) 04/28/16 06:08 Est GFR (MDRD) Non-Af 18 (>60 ml/min/1.73 sqM) 04/28/16 06:08 Glucose 160 mg/dL (74-99) H 04/28/16 06:08 POC Glucose (mg/dL) 167 mg/dL (75-99) H 04/28/16 12:20 POC Glu Tree Cutter ID Shivani Mayer 04/28/16 12:[address] Glu mg/dL 151 mg/dL 04/28/16 10:44 Hemoglobin A1c 6.9 % (4.2-6.1) H 04/28/16 10:44 Plasma Lactic Acid Clay 2.4 mmol/L (0.7-2.0) H* 04/28/16 10:44 Calcium 9.2 mg/dL (8.4-10.2) 04/28/16 06:08 Total Bilirubin 1.0 mg/dL (0.2-1.3) 04/28/16 06:08 AST 49 U/L (17-59) 04/28/16 06:08 ALT 32 U/L (21-72) 04/28/16 06:08 Alkaline Phosphatase 77 U/L (38-126) 04/28/16 06:08 Total Creatine Kinase 64 U/L (55-170) 04/27/16 16:08 CK-MB (CK-2) 0.5 ng/mL (0.0-2.4) 04/27/16 16:08 CK-MB (CK-2) Rel Index 0.8 04/27/16 16:08 Troponin I <0.012 ng/mL (0.000-0.034) 04/27/16 16:08 NT-Pro-B Natriuret Pep 1810 pg/mL 04/28/16 06:08 Total Protein 5.9 g/dL (6.3-8.2) L 04/28/16 06:08 Albumin 3.2 g/dL (3.5-5.0) L 04/28/16 06:08 Triglycerides 235 mg/dL (<150) H 04/28/16 06:08 Cholesterol 120 mg/dL (<200) 04/28/16 06:08 LDL Cholesterol, Calc 46 mg/dL (0-99) 04/28/16 06:08 HDL Cholesterol 27 mg/dL (40-60) L 04/28/16 06:08 Amylase 632 U/L (30-110) H* 04/28/16 06:08 Lipase 07331 U/L (23-300) H 04/28/16 06:08 CBC & Chem 7: 05/01/16 05:40 05/01/16 05:40 Labs: Abnormal Lab Results - Last 24 Hours (Table) 04/27/16 04/27/16 04/28/16 Range/Units 17:32 20:49 06:08 WBC (3.8-10.6) k/uL RBC (4.30-5.90) m/uL MCV (80.0-100.0) fL MCHC (31.0-37.0) g/dL RDW (11.5-15.5) % Neutrophils # (Manual) (1.3-7.7) k/uL Potassium 6.0 H (3.5-5.1) mmol/L BUN 43 H (9-20) mg/dL Creatinine 3.50 H (0.66-1.25) mg/dL Glucose 160 H (74-99) mg/dL POC Glucose (mg/dL) 144 H 149 H (75-99) mg/dL Hemoglobin A1c (4.2-6.1) % Plasma Lactic Acid Clay (0.7-2.0) mmol/L Total Protein 5.9 L (6.3-8.2) g/dL Albumin 3.2 L (3.5-5.0) g/dL Triglycerides 235 H (<150) mg/dL HDL Cholesterol 27 L (40-60) mg/dL Amylase 632 H* (30-110) U/L Lipase 33154 H (23-300) U/L 04/28/16 04/28/16 04/28/16 Range/Units 06:08 07:01 10:44 WBC 16.4 H (3.8-10.6) k/uL RBC 4.09 L (4.30-5.90) m/uL MCV 110.6 H D (80.0-100.0) fL MCHC 30.1 L (31.0-37.0) g/dL RDW 15.8 H (11.5-15.5) % Neutrophils # (Manual) 12.3 H (1.3-7.7) k/uL Potassium (3.5-5.1) mmol/L BUN (9-20) mg/dL Creatinine (0.66-1.25) mg/dL Glucose (74-99) mg/dL POC Glucose (mg/dL) 158 H (75-99) mg/dL Hemoglobin A1c (4.2-6.1) % Plasma Lactic Acid Clay 2.4 H* (0.7-2.0) mmol/L Total Protein (6.3-8.2) g/dL Albumin (3.5-5.0) g/dL Triglycerides (<150) mg/dL HDL Cholesterol (40-60) mg/dL Amylase (30-110) U/L Lipase (23-300) U/L 04/28/16 04/28/16 04/28/16 Range/Units 10:44 11:14 12:20 WBC (3.8-10.6) k/uL RBC (4.30-5.90) m/uL MCV (80.0-100.0) fL MCHC (31.0-37.0) g/dL RDW (11.5-15.5) % Neutrophils # (Manual) (1.3-7.7) k/uL Potassium (3.5-5.1) mmol/L BUN (9-20) mg/dL Creatinine (0.66-1.25) mg/dL Glucose (74-99) mg/dL POC Glucose (mg/dL) 189 H 167 H (75-99) mg/dL Hemoglobin A1c 6.9 H (4.2-6.1) % Plasma Lactic Acid Clay (0.7-2.0) mmol/L Total Protein (6.3-8.2) g/dL Albumin (3.5-5.0) g/dL Triglycerides (<150) mg/dL HDL Cholesterol (40-60) mg/dL Amylase (30-110) U/L Lipase (23-300) U/L Assessment and Plan Plan: This is a 56-year-old male who presents to the hospital with signs of SIRS with acute pancreatitis, acute kidney injury, bilateral lower extremity DVTs with possible pulmonary embolism. Patient is currently on meropenem changed to Rocephin. Continue supportive care. Further recommendations as patient progresses. The above dictated assessment and findings were discussed with Dr. Kam. The impression and plan of care have been directed as dictated. Whitney Amaro nurse practitioner acting as scribe for Dr. Kam. Time with Patient: Greater than 30
--- NOTE | 2016-04-28 16:14 | ECHOF ---
Referral Reason:chest pain MEASUREMENTS -------- HEIGHT: 175.3 cm WEIGHT: 106.6 kg BP: 182/86 IVSd: 1.4 cm (0.6 - 1.1) LVIDd: 3.2 cm (3.9 - 5.3) LVPWd: 1.0 cm (0.6 - 1.1) IVSs: 1.6 cm LVIDs: 2.5 cm LVPWs: 1.1 cm Ao Diam: 3.8 cm (2.0 - 3.7) AV Cusp: 2.4 cm (1.5 - 2.6) LA Diam: 3.0 cm (2.7 - 3.8) MV EXCURSION: 21.866 mm (> 18.000) MV EF SLOPE: 119 mm/s (70 - 150) EPSS: 0.5 cm MV E Sanchez: 0.66 m/s MV DecT: 231 ms MV A Sanchez: 0.92 m/s MV E/A Ratio: 0.71 RAP: 5.00 mmHg RVSP: 26.47 mmHg FINDINGS -------- Sinus rhythm. This was a techncally difficult study with suboptimal views, , Definity utilized for enhancement of images. There is moderate concentric left ventricular hypertrophy. Overall left ventricular systolic function is normal with, an EF between 60 - 65 %. The right ventricle is normal in size. The left atrial size is normal. The right atrial size is normal. 1.5MG OF DEFINITY UTLIZED: 2 OR MORE WALL SEGMENTS NOT VISUALIZED. There is mild aortic valve sclerosis. There is no evidence of aortic regurgitation. Mild mitral annular calcification present. Mild mitral regurgitation is present. Mild tricuspid regurgitation present. There is no evidence of pulmonary hypertension. The right ventricular systolic pressure, as measured by Doppler, is 26.47mmHg. The pulmonic valve was not well visualized. The aortic root size is normal. Echo free space may represent effusion or a pericardial fat pad. CONCLUSIONS -------- 1. This was a techncally difficult study with suboptimal views, , Definity utilized for enhancement of images. 2. The right ventricular systolic pressure, as measured by Doppler, is 26.47mmHg. 3. The pulmonic valve was not well visualized. 4. The aortic root size is normal. 5. Echo free space may represent effusion or a pericardial fat pad. 6. There is moderate concentric left ventricular hypertrophy. 7. Overall left ventricular systolic function is normal with, an EF between 60 - 65 %. 8. 1.5MG OF DEFINITY UTLIZED: 2 OR MORE WALL SEGMENTS NOT VISUALIZED. 9. There is mild aortic valve sclerosis. 10. Mild mitral annular calcification present. 11. Mild mitral regurgitation is present. 12. Mild tricuspid regurgitation present. 13. There is no evidence of pulmonary hypertension. DOUGHNUT MAKER: Pauline Salas RDCS
[2016-04-28] MEDS: HYDROmorphone 1 MG/ML 1 ML SYRINGE IVP PRN (16:40)
[2016-04-28 17:01] LABS: Glucose,Whole Blood 163 mg/dL (75-99)
[2016-04-28 17:03] LABS: Potassium 5.7 mmol/L (3.5-5.1)
[2016-04-28] MEDS: FERROUS SULFATE 325 MG TAB PO SCH (17:58)
--- NOTE | 2016-04-28 18:01 | XR ---
EXAMINATION TYPE: XR chest 1V DATE OF EXAM: 04/28/2016 5:48 PM COMPARISON: Yesterday HISTORY: NG tube placement TECHNIQUE: Single frontal view of the chest is obtained. FINDINGS: There is a nasogastric tube with the tip below the diaphragm and probably in the body of t he stomach. There are chest leads. There is slight blunting of left costophrenic angle. Heart size is normal. There are no hilar masses. IMPRESSION: There is some pleural reaction or infiltrate at the lateral left lung base unchanged com pared to yesterday. Nasogastric tube is probably in good position.
[2016-04-28] MEDS ORDERED: INSULIN REGULAR 100 UNIT/ML VIAL IV STA (18:10)
[2016-04-28] MEDS ORDERED: CALCIUM GLUCONATE 1,000 MG in SODIUM CHLORIDE 0.9% 100 ML IVPB STA (18:11)
[2016-04-28 19:14] LABS: Amorphous Sediment,Urine Occasional /hpf; Appearance,Urine Cloudy (Clear); Bilirubin,Urine Negative (Negative); Glucose,Urine (UA) Trace (Negative); Granular Casts,Urine 19 /lpf (0); Ketones,Urine Trace (Negative); Leukocyte Esterase,Urine Small (Negative); Mucus,Urine Rare /hpf; Nitrite,Urine Negative (Negative); PH, Urine 5.5 (5.0-8.0); Particle Count 15484; Protein,Urine 2+ (Negative); Specific Gravity,Urine 1.018 (1.001-1.035); UA Billing (MACRO vs. MICRO) MICRO; Urobilinogen,Urine <2.0 mg/dL (<2.0); WBC,Urine 26 /hpf (0-5)
[2016-04-28 20:59] LABS: Glucose,Whole Blood 187 mg/dL (75-99)
--- NOTE | 2016-04-28 21:20 | PN ---
DATE OF SERVICE: 04/28/2016 This 56-year-old gentleman admitted with chest and abdominal pain, has abdominal distention also. The patient's amylase and lipase were elevated and also a CAT scan of the abdomen also suggestive of acute pancreatitis. Lipase elevated at 509, triglycerides 235. The patient is being closely monitored. The patient also has elevated WBC and evidence of early sepsis, also. Lactic acid was also elevated. Creatinine was increased to 3.5, indicating acute tubular necrosis. PAST MEDICAL HISTORY: Reviewed. REVIEW OF SYSTEMS: CARDIOVASCULAR: No angina or palpitations. RESPIRATORY: Occasional cough. GI: As mentioned earlier. : As mentioned earlier. NERVOUS: As mentioned earlier. Current medications are reviewed and included: 1. Tylenol 650 p.o. p.r.n. 2. Ventolin q.i.d. and p.r.n. 3. Zyloprim 200 mg daily. 4. Norvasc 5 mg b.i.d. 5. Aspirin 325 mg daily. 6. Lipitor 10 mg q.h.s. 7. Os-Faheem with vitamin D p.o. b.i.d. 8. Coreg 25 mg b.i.d. 9. Depakote 1000 mg daily. 10. Depakote 1500 mg p.o. daily. 11. Vitamin D2, 50,000 every Wednesday. 12. Lofibra 160 mg at bedtime. 13. Iron sulfate 320 mg daily. 14. Folic acid 1 mg daily. 15. Heparin drip. 16. Lantus 60 units subcu q.h.s. 17. Humalog. 18. Keppra 150 mg daily. 19. Meropenem. 20. Nitrostat. 21. Zofran. 22. Protonix. 23. Ultram. PHYSICAL EXAM: Patient is alert and oriented x2. Pulse is 123, blood pressure 116/72, respirations 20, temperature 98.4, pulse ox 92% on room air. HEENT: Conjunctivae normal. Oral mucosa moist. NECK: No jugular venous distension. No carotid bruits. No lymph node enlargement. CARDIOVASCULAR: S1 and S2 muffled. RESPIRATORY: Breath sounds diminished in the bases. A few scattered rhonchi and crackles. ABDOMEN: Soft, distended, tense. Diffusely tender. No guarding. No rigidity. NO mass palpable. Flanks are dull. Bowel sounds diminished. LEGS: No edema. NERVOUS SYSTEM: Paraparesis present. Labs are WBC 16.4 and MCV 110.6. Sodium 143, potassium 6. Other labs are noted. ASSESSMENT: 1. Abdominal pain with acute severe pancreatitis with possible early sepsis. 2. Increased amylase, lipase. 3. Increased triglycerides and a history of hyperlipidemia. 4. Hypoalbuminemia with mild to moderate protein-calorie malnutrition. 5. Increased plasma lactic acid. 6. Acute renal failure, possibly secondary to acute tubular necrosis and multifactorial with prerenal factors. 7. Hyperkalemia secondary to acute tubular necrosis. 8. Increased WBC possibly secondary to sepsis. 9. Increased MCV. 10. Obesity with a body mass index with sepsis of 34.8. 11. History of coronary artery disease. 12. History of congestive heart failure. 13. Cerebrovascular accident, transient ischemic. 14. History of diabetes mellitus type 2. 15. History of gastroesophageal reflux disease. 16. Hypertension. 17. Hyperlipidemia 18. History of degenerative joint disease. 19. Seizure disorder. 20. History of peripheral vascular disease. 21. History of gout. 22. History of osteomyelitis. 23. History of rupture with a left anterior cerebral artery infarct. 24. History of cardiomyopathy with ejection fraction 50% to 55%. 25. History of ascending lymphangitis. 26. History of sacral decubitus. 27. Gait dysfunction. 28. Anxiety, depression, not otherwise specified. 29. FULL CODE. RECOMMENDATIONS AND DISCUSSION: In this 56-year-old gentleman who presented with multiple complex medical issues, monitor the patient closely. Continue the current medication, continue with symptomatic treatment and bronchodilators. Otherwise, DVT prophylaxis. I would also recommend empiric antibiotics, transfer to [facility] and consult Gastroenterology, Surgery as well as Infectious Disease. Prognosis guarded because of multiple complex medical issues. Further recommendations to follow. MTDD
[2016-04-28] MEDS: ATORVASTATIN 10 MG TAB PO SCH (21:23)
[2016-04-28] MEDS: FENOFIBRATE 160 MG TAB PO SCH (21:23)
[2016-04-28] MEDS: INSULIN GLARGINE 100 UNIT/ML 10 ML VIAL SQ SCH (21:33)
--- NOTE | 2016-04-28 21:34 | P.CON ---
Consult Note - . 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 Patient is known to ID service as he was seen in May 2015 at which time he was treated for cellulitis of the right lower extremity. At that time he underwent duplex study that was negative for DVT, x-ray that showed potential for abscess and CAT scan of the lower extremity was done that failed to reveal an abscess and was negative for osteomyelitis. He was treated with local wound care with Silvadene and he was discharged on oral Bactrim. Patient currently resides at [facility]. He states he had a sudden onset of chest pain on the left side while he was watching TV. It was sharp with a 5 out of 10 with mild shortness of breath. Patient was transferred to [facility] where he received 4 baby aspirin and 3 nitroglycerin that did not change his pain. His d -dimer was slightly elevated at 0.73. BUN was 26 and creatinine 1.8. It appears patient's baseline creatinine is 1.5-1.7. He was afebrile. Troponin was 0.017. He was given 1 L of IV fluids and there was concern for pulmonary embolism and patient was transferred to [facility] for VQ scan. Patient was admitted to the selective care unit. Unfortunately he was unable to complete the VQ scan. However, venous Dopplers of the bilateral lower extremities were positive on both sides. He underwent a chest x-ray that showed left lower lobe atelectasis or infiltrate and cardiomegaly. CAT scan of the abdomen and pelvis revealed acute pancreatitis. He subsequently underwent x -ray films that showed possible obstruction or ileus. Patient's last bowel movement was apparently 2 days ago. Repeat lab work showed leukocytosis of 16.4 , lactic acid 2.4 and BUN 43 with creatinine 3.5. Albumin 3.2. Potassium was 6.06 and he is status post Kayexalate. His heart rate has been running 120-130 since admission. He has the following consultations in place cardiology, pulmonary medicine, nephrology, surgery. Amylase was 632 and lipase 13,509. Patient continues to have left upper quadrant lower rib pain. He does complain of nausea without vomiting. He denies any diarrhea. He denies any cough or sputum reduction. He states he has shortness of breath all the time and he normally has rapid respirations per the patient area he denies any problems with his legs that he is aware of. He is incontinent of urine. Please see the consult note is dictated by nurse practitioner Mrs. Whitney Amaro. Patient relates he is about of pancreatitis from a couple years ago. He does not know why it occurred. As noted above he is a somewhat poor historian due to his significant central nervous system aneurysm. Fortunately this time is comfortable until his abdominal exam occurs. He does have significant pain and abdomen is quite distended. He is being followed by surgery with no distinct surgical plans being required at this point in time. Has been seen by pulmonary with concerns to pulmonary embolus. Bilateral lower extremity deep venous thrombosis was found that he is being anticoagulated currently. Is over the patient is quite uncomfortable due to his abdominal pain. Amylase and lipase are markedly elevated. Forcing his calcium is not acutely low. Gastroneurology consult has been requested to determine if he needs further imaging of his biliary system. Liver enzymes are normal. Albumin is slightly low. Evidence of an elevated hemoglobin A1c in the lactic acid was elevated but is improving. The patient has noted he has a significant leukocytosis etiology is likely in the bases of the significant and acute pancreatitis. He is also having evidence of acute renal failure which may also be resulting some increasing leukocytosis. Imaging does not reveal evidence of a pancreatic pseudocyst. But there is concerns potential infection. Meropenem will be altered to Rocephin for now and he shall be monitored. Cultures are in process. I agree with evaluation, assessment and plan as dictated by nurse practitioner Mrs. Whitney Amaro.
[2016-04-28 22:10] LABS: Potassium 6.1 mmol/L (3.5-5.1)
[2016-04-28 22:50] LABS: Hepatitis B Core IgM Index 0.01
[2016-04-28 23:02] LABS: Hepatitis C Virus IgG Index 0.01
--- NOTE | 2016-04-28 23:02 | CONS ---
DATE OF CONSULTATION: 04/28/2016 REASON FOR CONSULTATION: Acute kidney injury. HISTORY OF PRESENT ILLNESS: The patient is a 56-year-old male with a past medical history significant for diabetes mellitus, hypertension and paraplegia. The patient was admitted to the emergency department with a chief complaint of abdominal pain and evidence of acute pancreatitis with an elevated lipase over 13,000. Patient's baseline creatinine appears to range between 1.0-1.5 mg/dL; however, is 1.7 at time of admission, is elevated to 3.5 today. Patient is also known to be hyperkalemic. No urine output is documented. The patient states that he does not feel well. He is currently admitted to the floor for further work-up and observation. PAST MEDICAL HISTORY: Again significant for coronary artery disease, congestive heart failure, CVA, diabetes mellitus, gastroesophageal reflux, hyperlipidemia, hypertension, osteoarthritis, seizure disorder, vascular disorder, anemia, gout, osteomyelitis, cerebral aneurysm rupture with left EVA territory infarct which revealed resulted in paraplegic and incontinent, tremors. Anxiety and depression. PAST SURGICAL HISTORY: cerebral coils, PEG tube insertion. SOCIAL HISTORY: The patient resides at [facility]. He is wheelchair bound. No significant alcohol use. Was a smoker up until 2007. FAMILY HISTORY: History of CVA TIA. Home medications include: 1. Tylenol 650 p.o. b.i.d. 2. Lasix 20 mg p.o. daily, 3. Insulin 60 units daily. 4. Norvasc 5 mg p.o. b.i.d. 5. Vitamin D 1 tab p.o. daily. 6. Coreg 25 mg p.o. b.i.d. 7. Lipitor 10 mg daily, 8. Tussionex as needed. 9. Depakote 1500 mg p.o. daily in the morning and 1000 mg p.o. daily each evening. 10. Vitamin D 50,000 units p.o. as directed. 11. Her iron 60 p.o. to daily. 12. Ferrous sulfate 325 p.o. daily. 13. Folic acid 1 mg p.o. daily. 14. Omeprazole 20 mg daily. 15. Effexor 150 daily. 16. Keppra 1 gram p.o. at night and 1500 mg p.o. daily. ALLERGIES: IODINE CONTRAST, NSAIDS AND SODIUM PHOSPHATE, FLEET ENEMAS. PHYSICAL EXAMINATION: VITAL SIGNS: Blood pressure 116/72, O2 sat was 92% on nasal cannula. Heart rate has been between 120 to 130, respiratory rate 20, 98.1, temp. GENERAL: The patient does appear ill. He says he does not feel well. HEENT: Head normocephalic, atraumatic. NECK: Supple. No JVD. LUNGS: Diminished breath sounds. CARDIAC: Plus S1, S2. ABDOMEN: Positive bowel sounds, soft, tender to palpation. EXTREMITIES: No significant edema. NEUROLOGIC: Full exam not performed. The patient is a history of paraplegia. LABORATORY DATA: Lactic acid was initially 2.4, it is improved to 2.1. Urine chemistry ( ) INR 1.3, A1c 6.9. White blood cell count 16.4, hemoglobin 13.6, hematocrit 45.3, platelets 323, sodium 143, potassium 6.0, chloride 104, CO2 24, BUN of 43, creatinine 3.5. Albumin 3.2, triglycerides 235. Amylase 632, lipase 13,509. CPK of 64, AST and ALT are within normal limits. Calcium 9.2. Acute abdomen series reveals a left lower lobe infiltrate, small effusion, marked distention of the stomach and bowel loop, possible ileus. Echo reveals ejection fraction of 60 to 65. No pulmonary hypertension, mild valvular disorders per report. Perfusion scan revealed nondiagnostic as the patient was unable to complete the ventilation portion. Abdomen and pelvis CT without contrast reveals pancreas no pancreatic mass but thickening of the body and inflammatory changes. No splenomegaly. No lesions. No adrenal nodules noted. Kidneys revealed bilateral renal cortical cysts, largest in the left lower pole measuring 2.6 cm, no nephrolithiasis. No hydronephrosis, urinary bladder wall thickening, which is incompletely distended. Dopplers were also done which revealed DVT mid superficial femoral vein. IMPRESSIONS AND RECOMMENDATIONS: 1. Acute kidney injury likely relates to acute tubular necrosis rule out obstructive process as well. CT scan should reveals no hydronephrosis, however, will need to rule out bladder outlet obstruction with thickening of the bladder. Will check PVRs. Place Grimes as needed. We will also recommend UA and rule out infectious process and renal dose all medications. Continue IV fluid hydration. 2. History of hyperkalemia, again secondary to above. The patient has been medically treated recommend repeat potassium later today. 3. Chronic kidney disease with baseline creatinine ranging between 1.0 and 1.5 mg/dL. The patient does have an underlying history of diabetes mellitus, hypertension which is now controlled. 4. History of paraplegia, possible urinary incontinence versus neurogenic bladder. Again, continue with PVRs. Place Grimes if needed. If renal function continues to worsen may need to renal dose antiepileptics. 5. History of hypertension. Continue blood pressure modifications at this time. Avoid hypotension. 6. History of acute pancreatitis. Will continue with IV fluids and hydrate as needed. Surgery has been consulted for further recommendations. Continue to monitor enzymes closely. 7. History of metabolic acidosis with history of lactic acidosis. 8. Hypoperfusion. We will continue to monitor closely.
[2016-04-28 23:06] LABS: Hepatitis C Virus IgG Ab Negative (Negative)
[2016-04-29] MEDS ORDERED: INSULIN REGULAR 100 UNIT/ML VIAL IV ONE (00:38)
[2016-04-29] MEDS ORDERED: DEXTROSE 50%-WATER 50 ML SYRINGE IVP STA (00:38)
[2016-04-29] MEDS ORDERED: CALCIUM GLUCONATE 1,000 MG in SODIUM CHLORIDE 0.9% 100 ML IVPB ONE (00:39)
[2016-04-29 00:40] LABS: Glucose,Whole Blood 187 mg/dL (75-99)
[2016-04-29] MEDS ORDERED: SODIUM BICARB 8.4% 50 ML SYR (1 MEQ/ML) IV ONE (00:45)
[2016-04-29] MEDS: HYDROmorphone 1 MG/ML 1 ML SYRINGE IVP PRN ×5 (00:48→23:18)
[2016-04-29] MEDS: INSULIN LISPRO (humaLOG) 300 UNIT/3 ML VIAL SQ SCH ×4 (01:34→14:29)
[2016-04-29] MEDS: SODIUM CHLORIDE 0.9% 1,000 ML IV SCH ×2 (03:56→16:48)
[2016-04-29] MEDS: HEPARIN SODIUM,PORCINE/D5W PMX 25,000 UNIT in DEXTROSE/WATER 1 500ML.BAG IV SCH ×2 (03:57→15:55)
[2016-04-29 06:04] LABS: Glucose,Whole Blood 164 mg/dL (75-99)
[2016-04-29] MEDS: DIVALPROEX 500 MG TABLET.DR PO SCH ×2 (06:24→16:48)
[2016-04-29] MEDS: CARVEDILOL 12.5 MG TAB PO SCH ×2 (06:24→16:47)
[2016-04-29] MEDS: PANTOPRAZOLE 40 MG TABLET PO SCH (06:24)
[2016-04-29 06:57] LABS: CH 33.7; CHCM 31.1; HCT 35.6 % (39.0-53.0); HDW 2.69; Hypochromasia Slight; Immature Gran Flag Marked; MCH 33.8 pg (25.0-35.0); Macrocytosis Marked; Mean Platelet Volume 7.7; RBC 3.27 m/uL (4.30-5.90); RDW 15.1 % (11.5-15.5); WBC 11.9 k/uL (3.8-10.6); WBC (Perox) 12.89
[2016-04-29] MEDS: MEROPENEM 1 GM in SODIUM CHLORIDE 0.9% 100 ML IVPB SCH (07:13)
[2016-04-29 07:36] LABS: Calcium 8.1 mg/dL (8.4-10.2); Potassium 4.8 mmol/L (3.5-5.1); Total Bilirubin 0.7 mg/dL (0.2-1.3); Total Protein 4.9 g/dL (6.3-8.2)
[2016-04-29] MEDS: VENLAFAXINE HCL ER 150 MG CAP PO SCH (07:56)
[2016-04-29] MEDS: amLODIPine 5 MG TAB PO SCH ×2 (07:57→20:17)
[2016-04-29] MEDS: ALLOPURINOL 100 MG TAB PO SCH (07:57)
[2016-04-29] MEDS: ASPIRIN 325 MG TAB PO SCH (07:58)
[2016-04-29] MEDS: CALCIUM CARB-VIT D 500MG-200UN 1 EACH TAB PO SCH ×2 (07:58→20:17)
[2016-04-29] MEDS: levETIRAcetam 500 MG TAB PO SCH ×2 (07:58→16:47)
[2016-04-29] MEDS: ALBUTEROL NEBULIZED 2.5 MG/3 ML INHALATION SCH ×4 (08:02→20:20)
[2016-04-29] MEDS: cefTRIAXone 2,000 MG in SODIUM CHLORIDE 0.9% 100 ML IVPB SCH (08:24)
[2016-04-29 08:34] LABS: Add Differential Manual Differential
[2016-04-29 08:37] LABS: Band Neutrophils % 19.5 %; Manual Review Performed; Myelocytes % 0.5 %; Nucleated Red Blood Cells 0 /100 WBC (0-0); Total Cells Counted 200; Toxic Granulation Present; Toxic Vacuolation Present
[2016-04-29 08:38] LABS: Polychromasia Present
--- NOTE | 2016-04-29 09:41 | CONS ---
DATE OF CONSULTATION: 04/28/2016 REASON FOR CONSULTATION: Acute pancreatitis. HISTORY OF PRESENT ILLNESS: The patient is a 56-year-old white male admitted to the hospital with abdominal pain for the last 3 to 4 days duration. He also had some chest pain associated with some shortness of breath. He came to the emergency and was noted to have elevated amylase and lipase consistent with acute pancreatitis and hence admitted to the hospital. He does not have an NG tube in place. He still continues to complain of abdominal pain and abdominal distention and requiring pain medications every 2 hours. He recalls having a similar episode of acute pancreatitis about a year ago. Patient also has a history of heavy alcohol abuse and he quit drinking about a month ago. PAST MEDICAL HISTORY: Significant for coronary artery disease, congestive heart failure, history of CVA in the past, diabetes mellitus, hypertension, hyperlipidemia, degenerative joint disease, seizure disorder and alcohol use. PAST SURGICAL HISTORY: Unremarkable. MEDICATIONS AT HOME: Keppra, Norvasc, Effexor, omeprazole, Prinivil, Lantus, Humalog, Lasix, Feosol, vitamin ( ) Depakote, Coreg, Lipitor, Zyloprim, Tylenol. ALLERGIES: IV DYE, NSAIDS, and FLEET ENEMA. SOCIAL HISTORY: History of smoking and alcohol use, as mentioned above. REVIEW OF SYSTEMS: CARDIOPULMONARY: He does complain of some shortness of breath, but no chest pain. GENITOURINARY: No dysuria or hematuria. MUSCULOSKELETAL: Unremarkable. SKIN: Unremarkable. ENDOCRINE: Unremarkable. PSYCHIATRIC: History of anxiety, depression. NEUROLOGY: Unremarkable. ENT/VISION: Unremarkable. HEMATOLOGY: Unremarkable. CONSTITUTIONAL: No recent weight loss. No fevers, chills or night sweats. FAMILY HISTORY: Mother has diabetes mellitus and CVA. Father of old age. On physical examination, he appeared comfortable in no apparent distress. Vital signs are stable. Blood pressure is 106/60, pulse rate 120, temperature 97.6. HEENT EXAMINATION: Unremarkable. Conjunctivae pink. Sclerae anicteric. Oral cavity, no lesions. NECK: No JVD or lymph node enlargement. Chest was clear to auscultation. HEART: Regular rate and rhythm. ABDOMEN: Soft, is distended. Tenderness in the epigastric and periumbilical area. No rebound or rigidity. Bowel sounds are positive. EXTREMITIES: No pedal edema. SKIN: No rashes. NEURO: He is awake, oriented to name and place and not to time. Labs done at the time of admission to the hospital: WBC 10.1, hemoglobin 13.3, platelets 314. PT, INR is within normal limits. Sodium is 141, potassium 5.3, chloride 106, CO2 of 24, BUN 28, creatinine 1.7. ALT, AST, T-bili and alkaline phosphatase are within normal limits. Amylase is 632, lipase is 13,509. Triglycerides at 235. Albumin 3.2. CT of the abdomen and pelvis showed thickening in the body of the pancreas with peripancreatic inflammatory changes consistent with acute pancreatitis. Gallbladder was unremarkable. No evidence of gallstones. IMPRESSION: This is a patient who presents with acute onset of severe chest pain and epigastric pain for the last 2 days' duration and noted to have elevated amylase and lipase consistent acute pancreatitis. He has normal serum transaminases, making it very unlikely we are dealing with biliary pancreatitis. CT of the abdomen did show evidence of pancreatitis, but no evidence of that. Patient ( ) IV hydration and pain medications. He states that he has history of heavy alcohol use and had a similar episode of acute pancreatitis for which he was hospitalized earlier. Patient is a very poor historian. RECOMMENDATIONS: 1. Aggressive IV hydration. 2. Repeat amylase and lipase in the morning. 3. Will obtain ultrasound of gallbladder to rule out any gallstones. 4. Continue with symptomatic and supportive care and will follow the patient closely during his hospital stay. Thank you for this consultation.
[2016-04-29] MEDS ORDERED: SODIUM CHLORIDE 0.9% 1,000 ML IV SCH (09:45)
[2016-04-29] MEDS: FOLIC ACID 1 MG TAB PO SCH (11:27)
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
[2016-04-29 12:04] LABS: Glucose,Whole Blood 183 mg/dL (75-99)
--- NOTE | 2016-04-29 14:08 | PN ---
DATE OF SERVICE: 04/29/2016 Patient is a 56-year-old pleasant while male admitted to the hospital with severe chest pain and abdominal pain. He was subsequently diagnosed with acute pancreatitis. CAT scan of the abdomen showed peripancreatic edema and fluid consistent with acute pancreatitis. Patient had multiple episodes of nausea, vomiting, he had an NG tube placed. Today he states that he continues to have the abdominal pain, not feeling better yet, still nauseated. No emesis. No fever, chills or night sweats. On physical examination, he appears comfortable. Blood pressure is 105/51, pulse rate 117, temperature 98.3. HEENT examination unremarkable. Conjunctivae pink. Sclerae nonicteric. Oral cavity no lesions. NECK: No JVD. No lymph node enlargement. CHEST: Clear to auscultation. HEART: Regular rate and rhythm. Abdomen is soft. Bowel sounds are positive. Liver is slightly distended. Tenderness in the epigastric area. EXTREMITIES: No pedal edema. SKIN: No rashes. NEURO: Alert and oriented x3. No focal deficits. Labs done today: WBC is 7.9, yesterday it was 16.4, hemoglobin 11, platelets 237. Amylase is down to 297 and lipase is down to 5166. ALT, AST, t-bili and alkaline phosphatase continued to remain normal. IMPRESSION: 1. Acute severe pancreatitis. 2. Bilateral deep venous thrombosis. Dr. Lopez following the patient closely. 3. History of paraplegia. RECOMMENDATIONS: The patient was already evaluated by Dr. Kam and was started on broad-spectrum antibiotics. At this time, his amylase and lipase are gradually improving. Will continue with aggressive IV hydration, continue with broad-spectrum antibiotics and continue with symptomatic and supportive care. I will continue to follow the patient closely during the hospital stay. Thank you for this consultation.
--- NOTE | 2016-04-29 14:38 | P.PN ---
Subjective Principal diagnosis: Acute pancreatitis Patient is a 56-year-old male being evaluated for acute pancreatitis. Acute abdominal series from yesterday with evidence of distention of stomach and bowel loop in the mid abdomen with suspicion for underlying obstruction or localized ileus. Nasogastric tube has been inserted. Patient reports improvement in abdominal pain. Denies nausea or vomiting. Reports flatus with no bowel movement. Afebrile. Patient remains tachycardic. Urine output adequate. Amylase and lipase improved from yesterday. Objective - Vital Signs Vital signs: Vital Signs Temp 98.3 F 04/29/16 11:23 Pulse 120 H 04/29/16 11:33 Resp 22 04/29/16 11:24 BP 105/51 04/29/16 11:23 Pulse Ox 91 L 04/29/16 11:23 Intake & Output 04/28/16 04/29/16 04/29/16 18:59 06:59 18:59 Intake Total 860 500 793.92 Output Total 120 0 425 Balance 740 500 368.92 Weight 115 kg Intake: IV 800 627 Calcium Gluconate 1,000 100 mg In Sodium Chloride 0.9 % 100 ml @ 100 mls/hr IVPB ONCE ONE Rx#: [id number] Heparin Sodium,Porcine/ 52 D5w Pmx 25,000 unit In Dextrose/Water 1 500ml. bag @ 18 UNITS/KG/HR 38. 52 mls/hr IV .[id number] [facility] Rx#:[id number] Sodium Chloride 0.9% 1, 800 000 ml @ 100 mls/hr IV . Q10H [facility] Rx#:[id number] Sodium Chloride 0.9% 1, 375 000 ml @ 125 mls/hr IV . Q8H [facility] Rx#:[id number] cefTRIAXone 2,000 mg In 100 Sodium Chloride 0.9% 100 ml @ 100 mls/hr IVPB Q24HR [facility] Rx#:[id number] Oral 60 Other 500 166.92 Output: Urine 120 0 425 Uretheral (Grimes) 120 425 Other: Voiding Method Diaper Indwelling Catheter Indwelling Catheter Incontinent # Voids 0 - Exam GENERAL: Pt awake and alert, well-nourished, appears in no apparent distress. EYES:Sclera anicteric, conjunctiva are normal. ENT: Dry mucous membranes. NG tube to low intermittent suction. LUNGS: Breath sounds clear to auscultation bilaterally. No wheezes, rales, or rhonchi. HEART: Heart S1, S2, no S3 or S4. No murmurs, rubs or gallops. Patient tachycardic. ABDOMEN: Soft, obese, diffuse tenderness, mildly distended, hypoactive bowel sounds. Voluntary guarding. NEUROLOGICAL: Pt oriented x 3. - Labs CBC & Chem 7: 04/29/16 05:42 04/29/16 05:42 Labs: Abnormal Lab Results - Last 24 Hours (Table) 04/28/16 04/28/16 04/28/16 Range/Units 15:00 15:00 15:59 WBC (3.8-10.6) k/uL RBC (4.30-5.90) m/uL Hgb (13.0-17.5) gm/dL Hct (39.0-53.0) % MCV (80.0-100.0) fL Neutrophils # (Manual) (1.3-7.7) k/uL Lymphocytes # (Manual) (1.0-4.8) k/uL Monocytes # (Manual) (0-1.0) k/uL PT 12.6 H (9.0-12.0) sec APTT (22.0-30.0) sec Sodium (137-145) mmol/L Potassium 5.7 H (3.5-5.1) mmol/L BUN (9-20) mg/dL Creatinine (0.66-1.25) mg/dL Glucose (74-99) mg/dL POC Glucose (mg/dL) (75-99) mg/dL Plasma Lactic Acid Clay 2.1 H (0.7-2.0) mmol/L Calcium (8.4-10.2) mg/dL Total Protein (6.3-8.2) g/dL Albumin (3.5-5.0) g/dL Amylase (30-110) U/L Lipase (23-300) U/L Urine Protein (Negative) Urine Glucose (UA) (Negative) Urine Ketones (Negative) Ur Leukocyte Esterase (Negative) Urine WBC (0-5) /hpf Amorphous Sediment (None) /hpf Hyaline Casts (0-2) /lpf Urine Mucus (None) /hpf 04/28/16 04/28/16 04/28/16 Range/Units 16:56 18:40 20:25 WBC (3.8-10.6) k/uL RBC (4.30-5.90) m/uL Hgb (13.0-17.5) gm/dL Hct (39.0-53.0) % MCV (80.0-100.0) fL Neutrophils # (Manual) (1.3-7.7) k/uL Lymphocytes # (Manual) (1.0-4.8) k/uL Monocytes # (Manual) (0-1.0) k/uL PT (9.0-12.0) sec APTT 79.1 H (22.0-30.0) sec Sodium (137-145) mmol/L Potassium (3.5-5.1) mmol/L BUN (9-20) mg/dL Creatinine (0.66-1.25) mg/dL Glucose (74-99) mg/dL POC Glucose (mg/dL) 163 H (75-99) mg/dL Plasma Lactic Acid Clay (0.7-2.0) mmol/L Calcium (8.4-10.2) mg/dL Total Protein (6.3-8.2) g/dL Albumin (3.5-5.0) g/dL Amylase (30-110) U/L Lipase (23-300) U/L Urine Protein 2+ H (Negative) Urine Glucose (UA) Trace H (Negative) Urine Ketones Trace H (Negative) Ur Leukocyte Esterase Small H (Negative) Urine WBC 26 H (0-5) /hpf Amorphous Sediment Occasional H (None) /hpf Hyaline Casts 22 H (0-2) /lpf Urine Mucus Rare H (None) /hpf 04/28/16 04/28/16 04/29/16 Range/Units 20:46 21:50 00:37 WBC (3.8-10.6) k/uL RBC (4.30-5.90) m/uL Hgb (13.0-17.5) gm/dL Hct (39.0-53.0) % MCV (80.0-100.0) fL Neutrophils # (Manual) (1.3-7.7) k/uL Lymphocytes # (Manual) (1.0-4.8) k/uL Monocytes # (Manual) (0-1.0) k/uL PT (9.0-12.0) sec APTT (22.0-30.0) sec Sodium (137-145) mmol/L Potassium 6.1 H (3.5-5.1) mmol/L BUN (9-20) mg/dL Creatinine (0.66-1.25) mg/dL Glucose (74-99) mg/dL POC Glucose (mg/dL) 187 H 187 H (75-99) mg/dL Plasma Lactic Acid Clay (0.7-2.0) mmol/L Calcium (8.4-10.2) mg/dL Total Protein (6.3-8.2) g/dL Albumin (3.5-5.0) g/dL Amylase (30-110) U/L Lipase (23-300) U/L Urine Protein (Negative) Urine Glucose (UA) (Negative) Urine Ketones (Negative) Ur Leukocyte Esterase (Negative) Urine WBC (0-5) /hpf Amorphous Sediment (None) /hpf Hyaline Casts (0-2) /lpf Urine Mucus (None) /hpf 04/29/16 04/29/16 04/29/16 Range/Units 05:42 05:42 06:01 WBC 11.9 H (3.8-10.6) k/uL RBC 3.27 L (4.30-5.90) m/uL Hgb 11.0 L (13.0-17.5) gm/dL Hct 35.6 L (39.0-53.0) % MCV 109.0 H (80.0-100.0) fL Neutrophils # (Manual) 9.2 H (1.3-7.7) k/uL Lymphocytes # (Manual) 0.8 L (1.0-4.8) k/uL Monocytes # (Manual) 1.2 H (0-1.0) k/uL PT (9.0-12.0) sec APTT (22.0-30.0) sec Sodium 148 H (137-145) mmol/L Potassium (3.5-5.1) mmol/L BUN 57 H (9-20) mg/dL Creatinine 4.23 H (0.66-1.25) mg/dL Glucose 175 H (74-99) mg/dL POC Glucose (mg/dL) 164 H (75-99) mg/dL Plasma Lactic Acid Clay (0.7-2.0) mmol/L Calcium 8.1 L (8.4-10.2) mg/dL Total Protein 4.9 L (6.3-8.2) g/dL Albumin 2.5 L (3.5-5.0) g/dL Amylase 297 H (30-110) U/L Lipase 5166 H (23-300) U/L Urine Protein (Negative) Urine Glucose (UA) (Negative) Urine Ketones (Negative) Ur Leukocyte Esterase (Negative) Urine WBC (0-5) /hpf Amorphous Sediment (None) /hpf Hyaline Casts (0-2) /lpf Urine Mucus (None) /hpf 04/29/16 04/29/16 Range/Units 07:33 12:00 WBC (3.8-10.6) k/uL RBC (4.30-5.90) m/uL Hgb (13.0-17.5) gm/dL Hct (39.0-53.0) % MCV (80.0-100.0) fL Neutrophils # (Manual) (1.3-7.7) k/uL Lymphocytes # (Manual) (1.0-4.8) k/uL Monocytes # (Manual) (0-1.0) k/uL PT (9.0-12.0) sec APTT 80.1 H (22.0-30.0) sec Sodium (137-145) mmol/L Potassium (3.5-5.1) mmol/L BUN (9-20) mg/dL Creatinine (0.66-1.25) mg/dL Glucose (74-99) mg/dL POC Glucose (mg/dL) 183 H (75-99) mg/dL Plasma Lactic Acid Clay (0.7-2.0) mmol/L Calcium (8.4-10.2) mg/dL Total Protein (6.3-8.2) g/dL Albumin (3.5-5.0) g/dL Amylase (30-110) U/L Lipase (23-300) U/L Urine Protein (Negative) Urine Glucose (UA) (Negative) Urine Ketones (Negative) Ur Leukocyte Esterase (Negative) Urine WBC (0-5) /hpf Amorphous Sediment (None) /hpf Hyaline Casts (0-2) /lpf Urine Mucus (None) /hpf Microbiology - Last 24 Hours (Table) 04/28/16 18:40 Urine Culture - Preliminary Urine,Catheterized Assessment and Plan Plan: Impression: 1. Abdominal pain, present on admission, suspect secondary to acute pancreatitis according to CT of abdomen and elevated amylase and lipase, improving. 2. Abdominal distention suspect secondary to ileus. Plan: 1. Continue IV hydration. Continue nasogastric tube for small bowel decompression. Continue supportive treatment and pain management. Continue to follow with primary service and consultants. Patient is not a surgical candidate at this time. The above impression and plan have been discussed and directed by Dr. Murry. Dayana VICENTE acting as scribe for Dr. Murry.
--- NOTE | 2016-04-29 16:09 | P.PN ---
Subjective Principal diagnosis: Acute pancreatitis This is a 56-year-old gentleman who has history of cerebral aneurysm several years ago and is paraplegic. Patient also has history of hypertension, diabetes , hyperlipidemia, seizure disorder. Patient apparently came to the hospital with some discomfort in his mid abdominal and chest area. Troponin was normal at [place] and subsequent troponins here were negative as well. EKG was performed which did not reveal any acute changes. Echocardiogram with Doppler study was performed which revealed an ejection fraction of 60-65%. Patient did have a Lexiscan performed which was indeterminate for PE. He also had a venous duplex study which revealed a DVT. Patient was initiated on IV heparin and continues to be on IV heparin at this time. So has evidence of pancreatitis and is being followed by GI service. Objective - Vital Signs Vital signs: Vital Signs Temp 98.1 F 04/29/16 15:49 Pulse 113 H 04/29/16 15:49 Resp 20 04/29/16 15:49 BP 122/59 04/29/16 15:49 Pulse Ox 90 L 04/29/16 15:49 Intake & Output 04/28/16 04/29/16 04/29/16 18:59 06:59 18:59 Intake Total 860 500 793.92 Output Total 120 0 550 Balance 740 500 243.92 Weight 115 kg Intake: IV 800 627 Calcium Gluconate 1,000 100 mg In Sodium Chloride 0.9 % 100 ml @ 100 mls/hr IVPB ONCE ONE Rx#: [id number] Heparin Sodium,Porcine/ 52 D5w Pmx 25,000 unit In Dextrose/Water 1 500ml. bag @ 18 UNITS/KG/HR 38. 52 mls/hr IV .[id number] [facility] Rx#:[id number] Sodium Chloride 0.9% 1, 800 000 ml @ 100 mls/hr IV . Q10H [facility] Rx#:[id number] Sodium Chloride 0.9% 1, 375 000 ml @ 125 mls/hr IV . Q8H [facility] Rx#:[id number] cefTRIAXone 2,000 mg In 100 Sodium Chloride 0.9% 100 ml @ 100 mls/hr IVPB Q24HR [facility] Rx#:[id number] Oral 60 Other 500 166.92 Output: Urine 120 0 550 Uretheral (Grimes) 120 550 Other: Voiding Method Diaper Indwelling Catheter Indwelling Catheter Incontinent # Voids 0 - Exam PHYSICAL EXAMINATION: HEENT: Head is atraumatic, normocephalic. Pupils equal, round. Neck is supple. There is no elevated jugular venous pressure. HEART EXAMINATION: Heart S1, S2 normal. No murmur or gallop heard. CHEST EXAMINATION: Lungs are clear to auscultation and precussion. No chest wall tenderness is noted on palpation or with deep breathing. ABDOMEN: Soft, nontender. Mild distention noted. Bowel sounds are heard. No organomegaly noted. NG tube in place EXTREMITIES: 2+ peripheral pulses with no evidence of peripheral edema and no calf tenderness noted. NEUROLOGIC patient is awake, alert and oriented -3. . - Labs CBC & Chem 7: 04/29/16 05:42 04/29/16 05:42 Labs: Abnormal Lab Results - Last 24 Hours (Table) 04/28/16 04/28/16 04/28/16 Range/Units 15:59 16:56 18:40 WBC (3.8-10.6) k/uL RBC (4.30-5.90) m/uL Hgb (13.0-17.5) gm/dL Hct (39.0-53.0) % MCV (80.0-100.0) fL Neutrophils # (Manual) (1.3-7.7) k/uL Lymphocytes # (Manual) (1.0-4.8) k/uL Monocytes # (Manual) (0-1.0) k/uL APTT (22.0-30.0) sec Sodium (137-145) mmol/L Potassium 5.7 H (3.5-5.1) mmol/L BUN (9-20) mg/dL Creatinine (0.66-1.25) mg/dL Glucose (74-99) mg/dL POC Glucose (mg/dL) 163 H (75-99) mg/dL Calcium (8.4-10.2) mg/dL Total Protein (6.3-8.2) g/dL Albumin (3.5-5.0) g/dL Amylase (30-110) U/L Lipase (23-300) U/L Urine Protein 2+ H (Negative) Urine Glucose (UA) Trace H (Negative) Urine Ketones Trace H (Negative) Ur Leukocyte Esterase Small H (Negative) Urine WBC 26 H (0-5) /hpf Amorphous Sediment Occasional H (None) /hpf Hyaline Casts 22 H (0-2) /lpf Urine Mucus Rare H (None) /hpf 04/28/16 04/28/16 04/28/16 Range/Units 20:25 20:46 21:50 WBC (3.8-10.6) k/uL RBC (4.30-5.90) m/uL Hgb (13.0-17.5) gm/dL Hct (39.0-53.0) % MCV (80.0-100.0) fL Neutrophils # (Manual) (1.3-7.7) k/uL Lymphocytes # (Manual) (1.0-4.8) k/uL Monocytes # (Manual) (0-1.0) k/uL APTT 79.1 H (22.0-30.0) sec Sodium (137-145) mmol/L Potassium 6.1 H (3.5-5.1) mmol/L BUN (9-20) mg/dL Creatinine (0.66-1.25) mg/dL Glucose (74-99) mg/dL POC Glucose (mg/dL) 187 H (75-99) mg/dL Calcium (8.4-10.2) mg/dL Total Protein (6.3-8.2) g/dL Albumin (3.5-5.0) g/dL Amylase (30-110) U/L Lipase (23-300) U/L Urine Protein (Negative) Urine Glucose (UA) (Negative) Urine Ketones (Negative) Ur Leukocyte Esterase (Negative) Urine WBC (0-5) /hpf Amorphous Sediment (None) /hpf Hyaline Casts (0-2) /lpf Urine Mucus (None) /hpf 04/29/16 04/29/16 04/29/16 Range/Units 00:37 05:42 05:42 WBC 11.9 H (3.8-10.6) k/uL RBC 3.27 L (4.30-5.90) m/uL Hgb 11.0 L (13.0-17.5) gm/dL Hct 35.6 L (39.0-53.0) % MCV 109.0 H (80.0-100.0) fL Neutrophils # (Manual) 9.2 H (1.3-7.7) k/uL Lymphocytes # (Manual) 0.8 L (1.0-4.8) k/uL Monocytes # (Manual) 1.2 H (0-1.0) k/uL APTT (22.0-30.0) sec Sodium 148 H (137-145) mmol/L Potassium (3.5-5.1) mmol/L BUN 57 H (9-20) mg/dL Creatinine 4.23 H (0.66-1.25) mg/dL Glucose 175 H (74-99) mg/dL POC Glucose (mg/dL) 187 H (75-99) mg/dL Calcium 8.1 L (8.4-10.2) mg/dL Total Protein 4.9 L (6.3-8.2) g/dL Albumin 2.5 L (3.5-5.0) g/dL Amylase 297 H (30-110) U/L Lipase 5166 H (23-300) U/L Urine Protein (Negative) Urine Glucose (UA) (Negative) Urine Ketones (Negative) Ur Leukocyte Esterase (Negative) Urine WBC (0-5) /hpf Amorphous Sediment (None) /hpf Hyaline Casts (0-2) /lpf Urine Mucus (None) /hpf 04/29/16 04/29/16 04/29/16 Range/Units 06:01 07:33 12:00 WBC (3.8-10.6) k/uL RBC (4.30-5.90) m/uL Hgb (13.0-17.5) gm/dL Hct (39.0-53.0) % MCV (80.0-100.0) fL Neutrophils # (Manual) (1.3-7.7) k/uL Lymphocytes # (Manual) (1.0-4.8) k/uL Monocytes # (Manual) (0-1.0) k/uL APTT 80.1 H (22.0-30.0) sec Sodium (137-145) mmol/L Potassium (3.5-5.1) mmol/L BUN (9-20) mg/dL Creatinine (0.66-1.25) mg/dL Glucose (74-99) mg/dL POC Glucose (mg/dL) 164 H 183 H (75-99) mg/dL Calcium (8.4-10.2) mg/dL Total Protein (6.3-8.2) g/dL Albumin (3.5-5.0) g/dL Amylase (30-110) U/L Lipase (23-300) U/L Urine Protein (Negative) Urine Glucose (UA) (Negative) Urine Ketones (Negative) Ur Leukocyte Esterase (Negative) Urine WBC (0-5) /hpf Amorphous Sediment (None) /hpf Hyaline Casts (0-2) /lpf Urine Mucus (None) /hpf Microbiology - Last 24 Hours (Table) 04/28/16 18:40 Urine Culture - Preliminary Urine,Catheterized Assessment and Plan (1) HTN (hypertension) Status: Acute (2) Diabetes Status: Acute (3) Hyperlipemia Status: Acute (4) Deep venous thrombosis Status: Acute (5) Epigastric pain Status: Acute (6) Pancreatitis Status: Acute (7) Paraplegia Status: Acute (8) Pulmonary embolism Status: Acute Plan: Cardiology's perspective, we will recommend the patient on his current medications. We will follow him with you now on an as-needed basis only, please don't hesitate to call with any questions. DNP note has been reviewed, I agree with a documented findings and plan of care. Patient was seen and examined.
--- NOTE | 2016-04-29 16:10 | P.PN ---
Subjective Principal diagnosis: ANAI with Acute pancreatitis Aristeo is seen in consultation because of acute kidney injury secondary to severe pancreatitis. His creatinine is continuing to go up and is 4.23 this morning from a admission creatinine of 1.7. His baseline creatinine is 1.5 as of 05/28/2015 earlier this year. His urine output is marginal. He is denying any chest pain shortness of breath cough fever chills. He has chronic back pain which is unchanged. Bowel habits are unchanged. His pancreatitis has improved with decrease in pain, the enzymes are down but still very high, Lipase went down from 13,509 to 5166. 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 Objective - Vital Signs Vital signs: Vital Signs Temp 98.1 F 04/29/16 15:49 Pulse 113 H 04/29/16 15:54 Resp 20 04/29/16 15:54 BP 122/59 04/29/16 15:49 Pulse Ox 90 L 04/29/16 15:49 Intake & Output 04/28/16 04/29/16 04/29/16 18:59 06:59 18:59 Intake Total 045 539 6127.956 Output Total 120 0 550 Balance 740 500 537.956 Weight 115 kg Intake: IV 800 627 Calcium Gluconate 1,000 100 mg In Sodium Chloride 0.9 % 100 ml @ 100 mls/hr IVPB ONCE ONE Rx#: [id number] Heparin Sodium,Porcine/ 52 D5w Pmx 25,000 unit In Dextrose/Water 1 500ml. bag @ 18 UNITS/KG/HR 38. 52 mls/hr IV .[id number] [facility] Rx#:[id number] Sodium Chloride 0.9% 1, 800 000 ml @ 100 mls/hr IV . Q10H [facility] Rx#:[id number] Sodium Chloride 0.9% 1, 375 000 ml @ 125 mls/hr IV . Q8H [facility] Rx#:[id number] cefTRIAXone 2,000 mg In 100 Sodium Chloride 0.9% 100 ml @ 100 mls/hr IVPB Q24HR [facility] Rx#:[id number] Oral 60 Other 500 460.956 Output: Urine 120 0 550 Uretheral (Grimes) 120 550 Other: Voiding Method Diaper Indwelling Catheter Indwelling Catheter Incontinent # Voids 0 On examination he is awake alert oriented. HEENT exam no JVP neck is supple no facial asymmetry Lungs are clear to auscultation and percussion but was difficult because he could not sit up. Air entry is fair. Heart sounds are unremarkable for any murmur rub gallop. Abdomen is soft slightly distended minimally tender no rebound. All sounds are present Extremity exam was minimal edema. Warm to touch. Neurologically awake alert oriented has paraplegia - Labs CBC & Chem 7: 04/29/16 05:42 04/29/16 05:42 Labs: Abnormal Lab Results - Last 24 Hours (Table) 04/28/16 04/28/16 04/28/16 Range/Units 15:59 16:56 18:40 WBC (3.8-10.6) k/uL RBC (4.30-5.90) m/uL Hgb (13.0-17.5) gm/dL Hct (39.0-53.0) % MCV (80.0-100.0) fL Neutrophils # (Manual) (1.3-7.7) k/uL Lymphocytes # (Manual) (1.0-4.8) k/uL Monocytes # (Manual) (0-1.0) k/uL APTT (22.0-30.0) sec Sodium (137-145) mmol/L Potassium 5.7 H (3.5-5.1) mmol/L BUN (9-20) mg/dL Creatinine (0.66-1.25) mg/dL Glucose (74-99) mg/dL POC Glucose (mg/dL) 163 H (75-99) mg/dL Calcium (8.4-10.2) mg/dL Total Protein (6.3-8.2) g/dL Albumin (3.5-5.0) g/dL Amylase (30-110) U/L Lipase (23-300) U/L Urine Protein 2+ H (Negative) Urine Glucose (UA) Trace H (Negative) Urine Ketones Trace H (Negative) Ur Leukocyte Esterase Small H (Negative) Urine WBC 26 H (0-5) /hpf Amorphous Sediment Occasional H (None) /hpf Hyaline Casts 22 H (0-2) /lpf Urine Mucus Rare H (None) /hpf 04/28/16 04/28/16 04/28/16 Range/Units 20:25 20:46 21:50 WBC (3.8-10.6) k/uL RBC (4.30-5.90) m/uL Hgb (13.0-17.5) gm/dL Hct (39.0-53.0) % MCV (80.0-100.0) fL Neutrophils # (Manual) (1.3-7.7) k/uL Lymphocytes # (Manual) (1.0-4.8) k/uL Monocytes # (Manual) (0-1.0) k/uL APTT 79.1 H (22.0-30.0) sec Sodium (137-145) mmol/L Potassium 6.1 H (3.5-5.1) mmol/L BUN (9-20) mg/dL Creatinine (0.66-1.25) mg/dL Glucose (74-99) mg/dL POC Glucose (mg/dL) 187 H (75-99) mg/dL Calcium (8.4-10.2) mg/dL Total Protein (6.3-8.2) g/dL Albumin (3.5-5.0) g/dL Amylase (30-110) U/L Lipase (23-300) U/L Urine Protein (Negative) Urine Glucose (UA) (Negative) Urine Ketones (Negative) Ur Leukocyte Esterase (Negative) Urine WBC (0-5) /hpf Amorphous Sediment (None) /hpf Hyaline Casts (0-2) /lpf Urine Mucus (None) /hpf 04/29/16 04/29/16 04/29/16 Range/Units 00:37 05:42 05:42 WBC 11.9 H (3.8-10.6) k/uL RBC 3.27 L (4.30-5.90) m/uL Hgb 11.0 L (13.0-17.5) gm/dL Hct 35.6 L (39.0-53.0) % MCV 109.0 H (80.0-100.0) fL Neutrophils # (Manual) 9.2 H (1.3-7.7) k/uL Lymphocytes # (Manual) 0.8 L (1.0-4.8) k/uL Monocytes # (Manual) 1.2 H (0-1.0) k/uL APTT (22.0-30.0) sec Sodium 148 H (137-145) mmol/L Potassium (3.5-5.1) mmol/L BUN 57 H (9-20) mg/dL Creatinine 4.23 H (0.66-1.25) mg/dL Glucose 175 H (74-99) mg/dL POC Glucose (mg/dL) 187 H (75-99) mg/dL Calcium 8.1 L (8.4-10.2) mg/dL Total Protein 4.9 L (6.3-8.2) g/dL Albumin 2.5 L (3.5-5.0) g/dL Amylase 297 H (30-110) U/L Lipase 5166 H (23-300) U/L Urine Protein (Negative) Urine Glucose (UA) (Negative) Urine Ketones (Negative) Ur Leukocyte Esterase (Negative) Urine WBC (0-5) /hpf Amorphous Sediment (None) /hpf Hyaline Casts (0-2) /lpf Urine Mucus (None) /hpf 04/29/16 04/29/16 04/29/16 Range/Units 06:01 07:33 12:00 WBC (3.8-10.6) k/uL RBC (4.30-5.90) m/uL Hgb (13.0-17.5) gm/dL Hct (39.0-53.0) % MCV (80.0-100.0) fL Neutrophils # (Manual) (1.3-7.7) k/uL Lymphocytes # (Manual) (1.0-4.8) k/uL Monocytes # (Manual) (0-1.0) k/uL APTT 80.1 H (22.0-30.0) sec Sodium (137-145) mmol/L Potassium (3.5-5.1) mmol/L BUN (9-20) mg/dL Creatinine (0.66-1.25) mg/dL Glucose (74-99) mg/dL POC Glucose (mg/dL) 164 H 183 H (75-99) mg/dL Calcium (8.4-10.2) mg/dL Total Protein (6.3-8.2) g/dL Albumin (3.5-5.0) g/dL Amylase (30-110) U/L Lipase (23-300) U/L Urine Protein (Negative) Urine Glucose (UA) (Negative) Urine Ketones (Negative) Ur Leukocyte Esterase (Negative) Urine WBC (0-5) /hpf Amorphous Sediment (None) /hpf Hyaline Casts (0-2) /lpf Urine Mucus (None) /hpf Microbiology - Last 24 Hours (Table) 04/28/16 18:40 Urine Culture - Preliminary Urine,Catheterized Assessment and Plan Plan: Impression. 1. 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 He will likely end up on dialysis. Creatinine is up to 2. Baseline creatinine 1.5 with chronic kidney disease secondary to possible diabetic nephropathy with 2+ protein and nephrosclerosis. 3. stable blood pressure and euvolemic clinically. Watch for congestive heart failure is not making urine and is on 125 mL of normal saline 4. Hyponatremia secondary to acute kidney injury and normal saline sodium is 148. Recommendation. Reduce IV fluids to 75 an hour as his blood pressure is reasonable and because of oliguria there is a risk of him going to congestive heart failure. Watch his calcium phosphorus with the severe pancreatitis calcium might go down and then started going up. Watch phosphorus as well because of the pancreatitis and saponification and then release of phosphorus.
[2016-04-29] MEDS: FERROUS SULFATE 325 MG TAB PO SCH (16:48)
[2016-04-29 17:53] LABS: Glucose,Whole Blood 180 mg/dL (75-99)
--- NOTE | 2016-04-29 18:45 | P.CONS ---
History of Present Illness - Reason for Consult Consult date: 04/29/16 anticoagulation recommendations Requesting physician: Abbie Munoz - Chief Complaint transfer from [facility] - History of Present Illness Pt is a very pleasant male pt who resides in an ECF and we have been asked to see due to BLE DVT and positive VQ scan at outside institution-unable to perform here. Pt denies personal or family history of blood clots, he has had limited mobility for about 2 years now, denied hormone use, frequent steroid use, injury, travel. His renal function is severely impaired on admit. Review of Systems All systems: negative Constitutional: Reports as per HPI Past Medical History Past Medical History: Coronary Artery Disease (CAD), Heart Failure, CVA/TIA, Diabetes Mellitus, GERD/Reflux, Hyperlipidemia, Hypertension, Osteoarthritis (OA ), Seizure Disorder, Vascular Disorder Additional Past Medical History / Comment(s): 05/20/15 Pt is a transfer from [facility] where he had presented to their ER from [facility] with AMS , confusion, fever, dehydration, urosepsis, anemia, PVD, gout and renal insufficiency. He is admitted here with cellulitis R leg/osteomylitis. Other HX: Cerebral aneurysm rupture with L EVA territory infarct which resulted in paraplegia and incontinence, bilateral upper extremity essential tremors, R lower extremity cellulitis with ascending lymphangitis in past, IDDM , cardiomyopathy, 08/2010 echo with EF 50-55%, sacral decubitus, healed R posterior thigh pressure ulcer scar, diverticulitis, anemia, sinusitis, UTI's Last Myocardial Infarction Date:: unkn History of Any Multi-Drug Resistant Organisms: None Reported Additional Past Surgical History / Comment(s): Peg tube insertion and removal, cerebral coils (embolized), Past Anesthesia/Blood Transfusion Reactions: No Reported Reaction Past Psychological History: Anxiety, Depression Additional Psychological History / Comment(s): Pt resides at [facility]. He is wheelchair bound. They use a calista lift to get pt into chair. He feeds himself. He needs assist with other ADLs. 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 Was a tobacco smoker until 2007. Denied significant alcohol use. Relates that he is single. No experience. No animal exposures. No international travel. Smoking Status: Former smoker Past Alcohol Use History: None Reported Additional Past Alcohol Use History / Comment(s): Pt quit smoking in 2007. He started smoking as a teen. Past Drug Use History: None Reported - Past Family History Father Family Medical History: No Reported History Additional Family Medical History / Comment(s): Pt states father was healthy up until his at age 90yrs. Mother Family Medical History: CVA/TIA Additional Family Medical History / Comment(s): Pt's mother at age 48yrs of a CVA Medications and Allergies Home Medications Medication Instructions Recorded Confirmed Type Acetaminophen Tab [Tylenol] 650 mg PO BID 05/20/15 04/27/16 History Furosemide [Lasix] 20 mg PO DAILY 05/20/15 04/27/16 History Insulin Glargine [Lantus] 60 unit SQ HS@2100 05/20/15 04/27/16 History amLODIPine [Norvasc] 5 mg PO BID 05/20/15 04/27/16 History Calcium Carb-Vit D 500Mg-200Un 1 tab PO BID 05/26/15 04/27/16 History [Oscal 500+D] Carvedilol [Coreg] 25 mg PO BID 05/26/15 04/27/16 History Acetaminophen [Tylenol] 650 mg PO Q6H PRN 04/27/16 04/27/16 History Atorvastatin [Lipitor] 10 mg PO HS@2100 04/27/16 04/27/16 History CHLORPHEN-HYDROcod 8-10mg/5ml 10 ml PO Q4H PRN 04/27/16 04/27/16 History [Tussionex] Divalproex Sodium [Depakote] 1,500 mg PO DAILY@0600 04/27/16 04/27/16 History Divalproex [Depakote] 1,000 mg PO DAILY@1700 04/27/16 04/27/16 History Ergocalciferol [Vitamin D2] 50,000 unit PO FR 04/27/16 04/27/16 History Fenofibrate 160 mg PO HS 04/27/16 04/27/16 History Ferrous Sulfate [Feosol] 325 mg PO DAILY@1700 04/27/16 04/27/16 History Folic Acid 1 mg PO DAILY 04/27/16 04/27/16 History INSULIN LISPRO (HumaLOG) [humaLOG] See Protocol SQ ACHS 04/27/16 04/27/16 History Omeprazole 20 mg PO DAILY 04/27/16 04/27/16 History Venlafaxine HCl [Effexor XR] 150 mg PO DAILY 04/27/16 04/27/16 History levETIRAcetam [Keppra] 1,000 mg PO DAILY@1700 04/27/16 04/27/16 History levETIRAcetam [Keppra] 1,500 mg PO QAM 04/27/16 04/27/16 History Allergies Allergy/AdvReac Type Severity Reaction Status Date / Time Iodinated Contrast Media - Allergy Unknown Verified 04/27/16 07:46 Oral and NSAIDS (Non-Steroidal Allergy Unknown Verified 04/27/16 07:46 Anti-Inflamma sodium phosphate AdvReac Unknown Verified 04/27/16 07:46 [From [employer]] Physical Exam Vitals: Vital Signs Temp Pulse Pulse Resp BP Pulse Ox 04/29/16 16:12 110 H 04/29/16 16:00 110 H 04/29/16 15:54 113 H 20 04/29/16 15:49 98.1 F 113 H 20 122/59 90 L 04/29/16 11:33 120 H 04/29/16 11:24 117 H 22 04/29/16 11:23 98.3 F 117 H 22 105/51 91 L 04/29/16 11:20 119 H 04/29/16 08:12 116 H 04/29/16 08:02 115 H 04/29/16 07:54 125 H 24 04/29/16 07:52 98.1 F 125 H 24 123/69 92 L 04/29/16 03:50 98.6 F 122 H 18 110/59 90 L 04/29/16 00:25 97.8 F 128 H 18 126/68 91 L 04/28/16 21:00 97.0 F L 122 H 20 134/68 90 L 04/28/16 20:18 120 H 04/28/16 20:09 122 H 91 L Intake and Output 04/29/16 04/29/16 04/29/16 06:59 14:59 22:59 Intake Total 500 793.92 1384.036 Output Total 0 425 125 Balance 500 368.92 1259.036 Intake: IV 627 1090 Calcium Gluconate 1,000 100 mg In Sodium Chloride 0.9 % 100 ml @ 100 mls/hr IVPB ONCE ONE Rx#: [id number] Heparin Sodium,Porcine/ 52 140 D5w Pmx 25,000 unit In Dextrose/Water 1 500ml. bag @ 18 UNITS/KG/HR 38. 52 mls/hr IV .[id number] [facility] Rx#:[id number] Sodium Chloride 0.9% 1, 375 875 000 ml @ 125 mls/hr IV . Q8H [facility] Rx#:[id number] Sodium Chloride 0.9% 1, 75 000 ml @ 75 mls/hr IV . [id number] [facility] Rx#:[id number] cefTRIAXone 2,000 mg In 100 Sodium Chloride 0.9% 100 ml @ 100 mls/hr IVPB Q24HR [facility] Rx#:[id number] Other 500 166.92 294.036 Output: Urine 0 425 125 Uretheral (Grimes) 425 125 Other: Voiding Method Indwelling Catheter Indwelling Catheter Indwelling Catheter Weight 115 kg - Constitutional General appearance: cooperative, no acute distress - EENT Eyes: anicteric sclerae ENT: normal oropharynx - Neck Neck: no lymphadenopathy - Respiratory Respiratory: bilateral: diminished (weak inspiratory effort) - Cardiovascular Heart sounds: normal: S1, S2 leg Peripheral Edema: bilateral: 1+ - Gastrointestinal 2 scars LUQ from drains, small incisional hernia noted General gastrointestinal: distended, normal bowel sounds, soft, tenderness Localized gastrointestinal: tender: LUQ (left flank), epigastric periumbilical - Integumentary Integumentary: pale - Musculoskeletal pt does not ambulate Musculoskeletal: generalized weakness - Psychiatric Pt answers questions appropriately, oriented to self, place and time Results CBC & Chem 7: 04/29/16 05:42 04/29/16 05:42 Labs: Abnormal Lab Results - Last 24 Hours (Table) 04/28/16 04/28/16 04/28/16 Range/Units 18:40 20:25 20:46 WBC (3.8-10.6) k/uL RBC (4.30-5.90) m/uL Hgb (13.0-17.5) gm/dL Hct (39.0-53.0) % MCV (80.0-100.0) fL Neutrophils # (Manual) (1.3-7.7) k/uL Lymphocytes # (Manual) (1.0-4.8) k/uL Monocytes # (Manual) (0-1.0) k/uL APTT 79.1 H (22.0-30.0) sec Sodium (137-145) mmol/L Potassium (3.5-5.1) mmol/L BUN (9-20) mg/dL Creatinine (0.66-1.25) mg/dL Glucose (74-99) mg/dL POC Glucose (mg/dL) 187 H (75-99) mg/dL Calcium (8.4-10.2) mg/dL Total Protein (6.3-8.2) g/dL Albumin (3.5-5.0) g/dL Amylase (30-110) U/L Lipase (23-300) U/L Urine Protein 2+ H (Negative) Urine Glucose (UA) Trace H (Negative) Urine Ketones Trace H (Negative) Ur Leukocyte Esterase Small H (Negative) Urine WBC 26 H (0-5) /hpf Amorphous Sediment Occasional H (None) /hpf Hyaline Casts 22 H (0-2) /lpf Urine Mucus Rare H (None) /hpf 04/28/16 04/29/16 04/29/16 Range/Units 21:50 00:37 05:42 WBC 11.9 H (3.8-10.6) k/uL RBC 3.27 L (4.30-5.90) m/uL Hgb 11.0 L (13.0-17.5) gm/dL Hct 35.6 L (39.0-53.0) % MCV 109.0 H (80.0-100.0) fL Neutrophils # (Manual) 9.2 H (1.3-7.7) k/uL Lymphocytes # (Manual) 0.8 L (1.0-4.8) k/uL Monocytes # (Manual) 1.2 H (0-1.0) k/uL APTT (22.0-30.0) sec Sodium (137-145) mmol/L Potassium 6.1 H (3.5-5.1) mmol/L BUN (9-20) mg/dL Creatinine (0.66-1.25) mg/dL Glucose (74-99) mg/dL POC Glucose (mg/dL) 187 H (75-99) mg/dL Calcium (8.4-10.2) mg/dL Total Protein (6.3-8.2) g/dL Albumin (3.5-5.0) g/dL Amylase (30-110) U/L Lipase (23-300) U/L Urine Protein (Negative) Urine Glucose (UA) (Negative) Urine Ketones (Negative) Ur Leukocyte Esterase (Negative) Urine WBC (0-5) /hpf Amorphous Sediment (None) /hpf Hyaline Casts (0-2) /lpf Urine Mucus (None) /hpf 04/29/16 04/29/16 04/29/16 Range/Units 05:42 06:01 07:33 WBC (3.8-10.6) k/uL RBC (4.30-5.90) m/uL Hgb (13.0-17.5) gm/dL Hct (39.0-53.0) % MCV (80.0-100.0) fL Neutrophils # (Manual) (1.3-7.7) k/uL Lymphocytes # (Manual) (1.0-4.8) k/uL Monocytes # (Manual) (0-1.0) k/uL APTT 80.1 H (22.0-30.0) sec Sodium 148 H (137-145) mmol/L Potassium (3.5-5.1) mmol/L BUN 57 H (9-20) mg/dL Creatinine 4.23 H (0.66-1.25) mg/dL Glucose 175 H (74-99) mg/dL POC Glucose (mg/dL) 164 H (75-99) mg/dL Calcium 8.1 L (8.4-10.2) mg/dL Total Protein 4.9 L (6.3-8.2) g/dL Albumin 2.5 L (3.5-5.0) g/dL Amylase 297 H (30-110) U/L Lipase 5166 H (23-300) U/L Urine Protein (Negative) Urine Glucose (UA) (Negative) Urine Ketones (Negative) Ur Leukocyte Esterase (Negative) Urine WBC (0-5) /hpf Amorphous Sediment (None) /hpf Hyaline Casts (0-2) /lpf Urine Mucus (None) /hpf 04/29/16 Range/Units 12:00 WBC (3.8-10.6) k/uL RBC (4.30-5.90) m/uL Hgb (13.0-17.5) gm/dL Hct (39.0-53.0) % MCV (80.0-100.0) fL Neutrophils # (Manual) (1.3-7.7) k/uL Lymphocytes # (Manual) (1.0-4.8) k/uL Monocytes # (Manual) (0-1.0) k/uL APTT (22.0-30.0) sec Sodium (137-145) mmol/L Potassium (3.5-5.1) mmol/L BUN (9-20) mg/dL Creatinine (0.66-1.25) mg/dL Glucose (74-99) mg/dL POC Glucose (mg/dL) 183 H (75-99) mg/dL Calcium (8.4-10.2) mg/dL Total Protein (6.3-8.2) g/dL Albumin (3.5-5.0) g/dL Amylase (30-110) U/L Lipase (23-300) U/L Urine Protein (Negative) Urine Glucose (UA) (Negative) Urine Ketones (Negative) Ur Leukocyte Esterase (Negative) Urine WBC (0-5) /hpf Amorphous Sediment (None) /hpf Hyaline Casts (0-2) /lpf Urine Mucus (None) /hpf Microbiology - Last 24 Hours (Table) 04/28/16 18:40 Urine Culture - Preliminary Urine,Catheterized Assessment and Plan (1) Deep venous thrombosis Narrative/Plan: Due to pt acute on chronic renal failure current recommendation is to treat DVT with heparin drip. With no/poor oral intake and the renal failure oral anticoagulation will be difficult to manage and effects will be highly variable. After pt has recovered, is eating and drinking better and renal function has returned to baseline he can be placed on oral anticoagulation. Recommendation is for [address] Schmidt did mention re- evaluating the pt at one year for appropriateness of lifetime anticoagulation based on improvements in mobility and stability of co-morbid conditions. Status: Acute
--- NOTE | 2016-04-29 19:21 | PN ---
DATE OF SERVICE: 04/29/2016 This 56-year-old gentleman who was admitted with abdominal pain with acute pancreatitis also had multiple other medical issues, including bilateral DVT. Patient is on empiric treatment as well as on IV heparin. Patient is being closely monitored. There is no evidence of any pulmonary embolism at this time. The chest x-ray showed pleural reaction infiltrate on the left lung base. The patient is being closely monitored at this time. NG tube was inserted. Multiple consultants, including Surgery, are following the patient closely. Patient is feeling slightly better today. Past medical history reviewed. REVIEW OF SYSTEMS: CARDIOVASCULAR SYSTEM: No angina, palpitations. RESPIRATORY SYSTEM: As mentioned earlier. GI: As mentioned earlier. : No dysuria, retention. NERVOUS SYSTEM: No numbness or weakness. Current medications are reviewed and include: 1. Tylenol 650 q.6 p.r.n. 2. Ventolin. 3. Zyloprim 200 mg daily. 4. Norvasc 5 mg p.o. b.i.d. 5. Aspirin 325 mg daily. 6. Lipitor 10 mg at bedtime. 7. Os-Faheem with vitamin D p.o. b.i.d. 8. Coreg 25 mg p.o. b.i.d. 9. Rocephin 2 grams daily. 10. Depakote 1000 mg daily. 11. Vitamin D2, 50,000. 12. Lofibra. 13. Iron sulfate 325 mg daily. 14. Folic acid 1 mg daily. 15. Dilaudid 0.5 mg q.4 p.r.n. 16. Lantus 60 units subcutaneously at bedtime. 17. Humalog q.6 p.r.n. 18. Keppra 1500 mg each morning and 1000 mg p.o. daily. 19. Nitrostat 0.4 sublingually p.r.n. 20. Zofran 4 mg IV q.6. 21. Protonix 40 mg daily. 22. Ultram 50 mg q.i.d. p.r.n. 23. Effexor XR 150 mg p.o. daily. PHYSICAL EXAMINATION: The patient is alert and oriented x3. Pulse is 113, blood pressure 122/59, respiration 20, temperature 98.0, pulse ox 98% on 6 L. HEENT: Conjunctivae normal. Oral mucosa moist. NECK: No jugular venous distention. No carotid bruit. No lymph node enlargement. Obese. CARDIOVASCULAR SYSTEM: S1, S2 muffled. No S3. No S4. RESPIRATORY: Breath sounds diminished at the bases. A few scattered rhonchi and crackles. ABDOMEN: Soft, obese, nontender. LEGS: No edema. No swelling. NERVOUS SYSTEM: Higher functions as mentioned earlier. Moves all 4 limbs. No focal motor or sensory deficit. Paraparesis present. LYMPHATICS: No lymph node palpable in the neck or axillae. SKIN: No ulcer, rash, bleeding. LABS: WBC 11.2, hemoglobin 11. Otherwise, sodium 148. Creatinine is 4.23. Alkaline phosphatase is 4.9. Amylase 297. Lipase 5166. ASSESSMENT: 1. Abdominal pain with acute pancreatitis with possible sepsis. 2. Increased amylase, lipase. 3. Increased triglycerides with history of hyperlipidemia. 4. Bilateral lower leg deep venous thrombosis. 5. Hypoalbuminemia with mild to moderate protein-calorie malnutrition. 6. Increased plasma lactic acid. 7. Acute renal failure, possibly secondary to acute tubular necrosis, multifactorial, with prerenal factors. 8. Hyperkalemia secondary to acute tubular necrosis. 9. Increased white count, possibly secondary to sepsis. 10. Increased mean corpuscular volume. 11. Obesity with a body mass index of 34.8. 12. History of coronary artery disease. 13. History of congestive heart failure; ejection fraction unknown. 14. History of cerebrovascular accident, transient ischemic attack. 15. History of diabetes mellitus, type 2. 16. History of gastroesophageal reflux disease. 17. Hypertension. 18. Hyperlipidemia. 19. History of degenerative joint disease. 20. Seizure disorder. 21. History of peripheral vascular disease. 22. Bilateral atelectasis. 23. History of gout. 24. History of osteomyelitis. 25. History of anterior cerebral artery infarct and paraparesis secondary to aneurysmal rupture. 26. History of cardiomyopathy; ejection fraction 50% to 55%. 27. History of ascending lymphangitis. 28. History of sacral decubitus. 29. Gait dysfunction. 30. Anxiety, depression not otherwise specified. 31. FULL CODE. RECOMMENDATIONS AND DISCUSSION: In this 56-year-old gentleman who presented with multiple complex medical issues, we will monitor the patient closely, continue the current medications, continue with symptomatic treatment. Otherwise at this time closely follow with multiple consultants. Continue with empiric antibiotics. The overall prognosis is guarded because of multiple complex medical issues. Further recommendations to follow. Continue with heparin. Continue for at least 6 months. Otherwise, repeat labs. See orders for further details. Guarded prognosis. Further recommendations to follow. MTDD
[2016-04-29] MEDS: ATORVASTATIN 10 MG TAB PO SCH (20:17)
[2016-04-29] MEDS: FENOFIBRATE 160 MG TAB PO SCH (20:17)
[2016-04-29] MEDS: INSULIN GLARGINE 100 UNIT/ML 10 ML VIAL SQ SCH (20:23)
--- NOTE | 2016-04-29 20:41 | P.PN ---
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 Patient is known to ID service as he was seen in May 2015 at which time he was treated for cellulitis of the right lower extremity. At that time he underwent duplex study that was negative for DVT, x-ray that showed potential for abscess and CAT scan of the lower extremity was done that failed to reveal an abscess and was negative for osteomyelitis. He was treated with local wound care with Silvadene and he was discharged on oral Bactrim. Patient currently resides at [facility]. He states he had a sudden onset of chest pain on the left side while he was watching TV. It was sharp with a 5 out of 10 with mild shortness of breath. Patient was transferred to [facility] where he received 4 baby aspirin and 3 nitroglycerin that did not change his pain. His d -dimer was slightly elevated at 0.73. BUN was 26 and creatinine 1.8. It appears patient's baseline creatinine is 1.5-1.7. He was afebrile. Troponin was 0.017. He was given 1 L of IV fluids and there was concern for pulmonary embolism and patient was transferred to [facility] for VQ scan. Patient was admitted to the selective care unit. Unfortunately he was unable to complete the VQ scan. However, venous Dopplers of the bilateral lower extremities were positive on both sides. He underwent a chest x-ray that showed left lower lobe atelectasis or infiltrate and cardiomegaly. CAT scan of the abdomen and pelvis revealed acute pancreatitis. He subsequently underwent x -ray films that showed possible obstruction or ileus. Patient's last bowel movement was apparently 2 days ago. Repeat lab work showed leukocytosis of 16.4 , lactic acid 2.4 and BUN 43 with creatinine 3.5. Albumin 3.2. Potassium was 6.06 and he is status post Kayexalate. His heart rate has been running 120-130 since admission. He has the following consultations in place cardiology, pulmonary medicine, nephrology, surgery. Amylase was 632 and lipase 13,509. Patient continues to have left upper quadrant lower rib pain. He does complain of nausea without vomiting. He denies any diarrhea. He denies any cough or sputum reduction. He states he has shortness of breath all the time and he normally has rapid respirations per the patient area he denies any problems with his legs that he is aware of. He is incontinent of urine. Seems to be slightly improved today. Objective - Vital Signs Vital signs: Vital Signs Temp 98.1 F 04/29/16 15:49 Pulse 120 H 04/29/16 20:35 Resp 20 04/29/16 15:54 BP 122/59 04/29/16 15:49 Pulse Ox 94 L 04/29/16 20:36 Intake & Output 04/29/16 04/29/16 04/30/16 06:59 18:59 06:59 Intake Total 500 2177.956 Output Total 750 650 Balance -250 1527.956 Weight 115 kg Intake: IV 1717 Calcium Gluconate 1,000 100 mg In Sodium Chloride 0.9 % 100 ml @ 100 mls/hr IVPB ONCE ONE Rx#: [id number] Heparin Sodium,Porcine/ 192 D5w Pmx 25,000 unit In Dextrose/Water 1 500ml. bag @ 18 UNITS/KG/HR 38. 52 mls/hr IV .[id number] [facility] Rx#:[id number] Sodium Chloride 0.9% 1, 1250 000 ml @ 125 mls/hr IV . Q8H [facility] Rx#:[id number] Sodium Chloride 0.9% 1, 75 000 ml @ 75 mls/hr IV . [id number] [facility] Rx#:[id number] cefTRIAXone 2,000 mg In 100 Sodium Chloride 0.9% 100 ml @ 100 mls/hr IVPB Q24HR [facility] Rx#:[id number] Other 500 460.956 Output: Gastric Drainage 750 Urine 0 650 Uretheral (Grimes) 550 Other: Voiding Method Indwelling Catheter Indwelling Catheter - Exam Gen: This is a obese 56-year-old male. He is laying in bed and noted to have rapid respirations but is able to speak in sentences HEENT: Head is atraumatic, normocephalic. Pupils equal, round. Sclerae is anicteric. Conjunctiva pink. Mucous membranes of the mouth are moist. No thrush noted. NECK: Supple. No JVD. No lymphadenopathy. No thyromegaly. LUNGS: Clear to auscultation. No wheezes or rhonchi. No intercostal retractions. HEART: Regular rate and rhythm. No murmur. ABDOMEN: Slightly distended. Bowel sounds are present. Generalized tenderness to the entire abdomen with significant tenderness to the left upper quadrant EXTREMITIES: Trace bilateral pedal edema. No erythema or wounds noted to the bilateral lower extremities NEUROLOGICAL: Patient is awake, alert - Labs CBC & Chem 7: 04/29/16 05:42 04/29/16 05:42 Labs: Abnormal Lab Results - Last 24 Hours (Table) 04/28/16 04/28/16 04/28/16 Range/Units 20:25 20:46 21:50 WBC (3.8-10.6) k/uL RBC (4.30-5.90) m/uL Hgb (13.0-17.5) gm/dL Hct (39.0-53.0) % MCV (80.0-100.0) fL Neutrophils # (Manual) (1.3-7.7) k/uL Lymphocytes # (Manual) (1.0-4.8) k/uL Monocytes # (Manual) (0-1.0) k/uL APTT 79.1 H (22.0-30.0) sec Sodium (137-145) mmol/L Potassium 6.1 H (3.5-5.1) mmol/L BUN (9-20) mg/dL Creatinine (0.66-1.25) mg/dL Glucose (74-99) mg/dL POC Glucose (mg/dL) 187 H (75-99) mg/dL Calcium (8.4-10.2) mg/dL Total Protein (6.3-8.2) g/dL Albumin (3.5-5.0) g/dL Amylase (30-110) U/L Lipase (23-300) U/L 04/29/16 04/29/16 04/29/16 Range/Units 00:37 05:42 05:42 WBC 11.9 H (3.8-10.6) k/uL RBC 3.27 L (4.30-5.90) m/uL Hgb 11.0 L (13.0-17.5) gm/dL Hct 35.6 L (39.0-53.0) % MCV 109.0 H (80.0-100.0) fL Neutrophils # (Manual) 9.2 H (1.3-7.7) k/uL Lymphocytes # (Manual) 0.8 L (1.0-4.8) k/uL Monocytes # (Manual) 1.2 H (0-1.0) k/uL APTT (22.0-30.0) sec Sodium 148 H (137-145) mmol/L Potassium (3.5-5.1) mmol/L BUN 57 H (9-20) mg/dL Creatinine 4.23 H (0.66-1.25) mg/dL Glucose 175 H (74-99) mg/dL POC Glucose (mg/dL) 187 H (75-99) mg/dL Calcium 8.1 L (8.4-10.2) mg/dL Total Protein 4.9 L (6.3-8.2) g/dL Albumin 2.5 L (3.5-5.0) g/dL Amylase 297 H (30-110) U/L Lipase 5166 H (23-300) U/L 04/29/16 04/29/16 04/29/16 Range/Units 06:01 07:33 12:00 WBC (3.8-10.6) k/uL RBC (4.30-5.90) m/uL Hgb (13.0-17.5) gm/dL Hct (39.0-53.0) % MCV (80.0-100.0) fL Neutrophils # (Manual) (1.3-7.7) k/uL Lymphocytes # (Manual) (1.0-4.8) k/uL Monocytes # (Manual) (0-1.0) k/uL APTT 80.1 H (22.0-30.0) sec Sodium (137-145) mmol/L Potassium (3.5-5.1) mmol/L BUN (9-20) mg/dL Creatinine (0.66-1.25) mg/dL Glucose (74-99) mg/dL POC Glucose (mg/dL) 164 H 183 H (75-99) mg/dL Calcium (8.4-10.2) mg/dL Total Protein (6.3-8.2) g/dL Albumin (3.5-5.0) g/dL Amylase (30-110) U/L Lipase (23-300) U/L 04/29/16 Range/Units 17:49 WBC (3.8-10.6) k/uL RBC (4.30-5.90) m/uL Hgb (13.0-17.5) gm/dL Hct (39.0-53.0) % MCV (80.0-100.0) fL Neutrophils # (Manual) (1.3-7.7) k/uL Lymphocytes # (Manual) (1.0-4.8) k/uL Monocytes # (Manual) (0-1.0) k/uL APTT (22.0-30.0) sec Sodium (137-145) mmol/L Potassium (3.5-5.1) mmol/L BUN (9-20) mg/dL Creatinine (0.66-1.25) mg/dL Glucose (74-99) mg/dL POC Glucose (mg/dL) 180 H (75-99) mg/dL Calcium (8.4-10.2) mg/dL Total Protein (6.3-8.2) g/dL Albumin (3.5-5.0) g/dL Amylase (30-110) U/L Lipase (23-300) U/L Microbiology - Last 24 Hours (Table) 04/28/16 18:40 Urine Culture - Preliminary Urine,Catheterized Laboratory Results WBC 11.9 k/uL (3.8-10.6) H 04/29/16 05:42 RBC 3.27 m/uL (4.30-5.90) L 04/29/16 05:42 Hgb 11.0 gm/dL (13.0-17.5) L 04/29/16 05:42 Hct 35.6 % (39.0-53.0) L 04/29/16 05:42 MCV 109.0 fL (80.0-100.0) H 04/29/16 05:42 MCH 33.8 pg (25.0-35.0) 04/29/16 05:42 MCHC 31.0 g/dL (31.0-37.0) 04/29/16 05:42 RDW 15.1 % (11.5-15.5) 04/29/16 05:42 Plt Count 237 k/uL (150-450) 04/29/16 05:42 Neutrophils % 85 % 04/27/16 10:33 Neutrophils % (Manual) 58.0 % 04/29/16 05:42 Band Neutrophils % 19.5 % 04/29/16 05:42 Lymphocytes % 6 % 04/27/16 10:33 Lymphocytes % (Manual) 7.0 % 04/29/16 05:42 Monocytes % 7 % 04/27/16 10:33 Monocytes % (Manual) 10.0 % 04/29/16 05:42 Eosinophils % 1 % 04/27/16 10:33 Basophils % 0 % 04/27/16 10:33 Metamyelocytes % 5.0 % 04/29/16 05:42 Myelocytes % 0.5 % 04/29/16 05:42 Neutrophils # 8.6 k/uL (1.3-7.7) H 04/27/16 10:33 Neutrophils # (Manual) 9.2 k/uL (1.3-7.7) H 04/29/16 05:42 Lymphocytes # 0.6 k/uL (1.0-4.8) L 04/27/16 10:33 Lymphocytes # (Manual) 0.8 k/uL (1.0-4.8) L 04/29/16 05:42 Monocytes # 0.7 k/uL (0-1.0) 04/27/16 10:33 Monocytes # (Manual) 1.2 k/uL (0-1.0) H 04/29/16 05:42 Eosinophils # 0.1 k/uL (0-0.7) 04/27/16 10:33 Basophils # 0.0 k/uL (0-0.2) 04/27/16 10:33 Nucleated RBCs 0 /100 WBC (0-0) 04/29/16 05:42 Manual Slide Review Performed 04/29/16 05:42 Toxic Granulation Present 04/29/16 05:42 Toxic Vacuolation Present 04/29/16 05:42 Polychromasia Present 04/29/16 05:42 Hypochromasia Slight 04/29/16 05:42 Anisocytosis (manual) Present 04/28/16 06:08 Macrocytosis Marked 04/29/16 05:42 PT 12.6 sec (9.0-12.0) H 04/28/16 15:00 INR 1.3 (<1.1) 04/28/16 15:00 APTT 80.1 sec (22.0-30.0) H 04/29/16 07:33 D-Dimer 2.06 mg/L FEU (<0.60) H 04/27/16 10:33 Sodium 148 mmol/L (137-145) H 04/29/16 05:42 Potassium 4.8 mmol/L (3.5-5.1) 04/29/16 05:42 Chloride 106 mmol/L (98-107) 04/29/16 05:42 Carbon Dioxide 27 mmol/L (22-30) 04/29/16 05:42 Anion Gap 15 mmol/L 04/29/16 05:42 BUN 57 mg/dL (9-20) H 04/29/16 05:42 Creatinine 4.23 mg/dL (0.66-1.25) H 04/29/16 05:42 Est GFR (MDRD) Af Amer 18 (>60 ml/min/1.73 sqM) 04/29/16 05:42 Est GFR (MDRD) Non-Af 15 (>60 ml/min/1.73 sqM) 04/29/16 05:42 Glucose 175 mg/dL (74-99) H 04/29/16 05:42 POC Glucose (mg/dL) 180 mg/dL (75-99) H 04/29/16 17:49 POC Glu Distribution Estimator Melody Joens 04/29/16 17:[address] Glu mg/dL 151 mg/dL 04/28/16 10:44 Hemoglobin A1c 6.9 % (4.2-6.1) H 04/28/16 10:44 Plasma Lactic Acid Clay 2.1 mmol/L (0.7-2.0) H 04/28/16 15:00 Calcium 8.1 mg/dL (8.4-10.2) L 04/29/16 05:42 Total Bilirubin 0.7 mg/dL (0.2-1.3) 04/29/16 05:42 AST 35 U/L (17-59) 04/29/16 05:42 ALT 31 U/L (21-72) 04/29/16 05:42 Alkaline Phosphatase 64 U/L (38-126) 04/29/16 05:42 Total Creatine Kinase 64 U/L (55-170) 04/27/16 16:08 CK-MB (CK-2) 0.5 ng/mL (0.0-2.4) 04/27/16 16:08 CK-MB (CK-2) Rel Index 0.8 04/27/16 16:08 Troponin I <0.012 ng/mL (0.000-0.034) 04/27/16 16:08 NT-Pro-B Natriuret Pep 1810 pg/mL 04/28/16 06:08 Total Protein 4.9 g/dL (6.3-8.2) L 04/29/16 05:42 Albumin 2.5 g/dL (3.5-5.0) L 04/29/16 05:42 Triglycerides 235 mg/dL (<150) H 04/28/16 06:08 Cholesterol 120 mg/dL (<200) 04/28/16 06:08 LDL Cholesterol, Calc 46 mg/dL (0-99) 04/28/16 06:08 HDL Cholesterol 27 mg/dL (40-60) L 04/28/16 06:08 Amylase 297 U/L (30-110) H 04/29/16 05:42 Lipase 5166 U/L (23-300) H 04/29/16 05:42 Urine Color Yellow 04/28/16 18:40 Urine Appearance Cloudy (Clear) 04/28/16 18:40 Urine pH 5.5 (5.0-8.0) 04/28/16 18:40 Ur Specific Crawford 1.018 (1.001-1.035) 04/28/16 18:40 Urine Protein 2+ (Negative) H 04/28/16 18:40 Urine Glucose (UA) Trace (Negative) H 04/28/16 18:40 Urine Ketones Trace (Negative) H 04/28/16 18:40 Urine Blood Negative (Negative) 04/28/16 18:40 Urine Nitrate Negative (Negative) 04/28/16 18:40 Urine Bilirubin Negative (Negative) 04/28/16 18:40 Urine Urobilinogen <2.0 mg/dL (<2.0) 04/28/16 18:40 Ur Leukocyte Esterase Small (Negative) H 04/28/16 18:40 Urine WBC 26 /hpf (0-5) H 04/28/16 18:40 Amorphous Sediment Occasional /hpf (None) H 04/28/16 18:40 Hyaline Casts 22 /lpf (0-2) H 04/28/16 18:40 Granular Casts 19 /lpf (0) 04/28/16 18:40 Urine Mucus Rare /hpf (None) H 04/28/16 18:40 Hepatitis A IgM Ab NEGATIVE 04/28/16 21:50 Hep Bs Antigen Negative 04/28/16 21:50 Hep B Core IgM Ab NEGATIVE 04/28/16 21:50 Hep C IgG Ab Negative (Negative) 04/28/16 21:50 Microbiology 04/28/16 18:40 Urine,Catheterized Urine Culture - Preliminary Assessment and Plan (1) Pancreatitis Narrative/Plan: 56-year-old male [facility] abdominal pain. Evidence of phillip pancreatitis. Also had lower extremity edema without evidence of bilateral lower extremities deep venous thrombosis and likely pulmonary in this. Currently being treated with an heparin drip has been seen by hematology. No evidence of any significant sepsis at this time. Antibiotic therapy was tailored to ceftriaxone. The cultures remain negative ischemic discontinued in 48 hours. Leukocytosis is improving and like in the bases of his extensive pancreatitis. Status: Acute (2) Deep venous thrombosis Status: Acute (3) Leukocytosis Status: Acute
[2016-04-30 00:13] LABS: Glucose,Whole Blood 176 mg/dL (75-99)
[2016-04-30] MEDS: INSULIN LISPRO (humaLOG) 300 UNIT/3 ML VIAL SQ SCH ×4 (00:15→17:48)
[2016-04-30] MEDS: HYDROmorphone 1 MG/ML 1 ML SYRINGE IVP PRN (04:37)
[2016-04-30] MEDS: DIVALPROEX 500 MG TABLET.DR PO SCH ×2 (06:07→17:26)
[2016-04-30] MEDS: PANTOPRAZOLE 40 MG TABLET PO SCH (06:08)
[2016-04-30] MEDS: SODIUM CHLORIDE 0.9% 1,000 ML IV SCH (06:08)
[2016-04-30] MEDS: HEPARIN SODIUM,PORCINE/D5W PMX 25,000 UNIT in DEXTROSE/WATER 1 500ML.BAG IV SCH ×2 (06:08→17:25)
[2016-04-30] MEDS: CARVEDILOL 12.5 MG TAB PO SCH ×2 (06:08→17:26)
[2016-04-30 06:11] LABS: Glucose,Whole Blood 156 mg/dL (75-99)
[2016-04-30 06:26] LABS: CH 33.7; HDW 2.68; Hypochromasia Slight; Immature Gran Flag Marked; MCHC 31.1 g/dL (31.0-37.0); MCV 109.3 fL (80.0-100.0); Macrocytosis Marked; Mean Platelet Volume 8.8; RBC 2.74 m/uL (4.30-5.90); RDW 15.1 % (11.5-15.5); WBC 9.5 k/uL (3.8-10.6); WBC (Perox) 10.88
[2016-04-30 06:31] LABS: HGB 9.3 gm/dL (13.0-17.5)
[2016-04-30 06:44] LABS: Add Differential Manual Differential
[2016-04-30 06:48] LABS: Band Neutrophils % 36.5 %; Manual Review Performed; Myelocytes % 0.5 %; Nucleated Red Blood Cells 0 /100 WBC (0-0); Total Cells Counted 200
[2016-04-30 07:31] LABS: Calcium 7.4 mg/dL (8.4-10.2); Potassium 4.3 mmol/L (3.5-5.1); Total Bilirubin 0.6 mg/dL (0.2-1.3); Total Protein 4.7 g/dL (6.3-8.2)
[2016-04-30] MEDS: ALBUTEROL NEBULIZED 2.5 MG/3 ML INHALATION SCH ×4 (07:48→20:39)
[2016-04-30] MEDS: ASPIRIN 325 MG TAB PO SCH (08:25)
[2016-04-30] MEDS: VENLAFAXINE HCL ER 150 MG CAP PO SCH (08:25)
[2016-04-30] MEDS: CALCIUM CARB-VIT D 500MG-200UN 1 EACH TAB PO SCH ×2 (08:26→20:06)
[2016-04-30] MEDS: amLODIPine 5 MG TAB PO SCH ×2 (08:26→20:06)
[2016-04-30] MEDS: levETIRAcetam 500 MG TAB PO SCH ×2 (08:26→17:26)
[2016-04-30] MEDS: ALLOPURINOL 100 MG TAB PO SCH (08:27)
[2016-04-30] MEDS: cefTRIAXone 2,000 MG in SODIUM CHLORIDE 0.9% 100 ML IVPB SCH (08:34)
[2016-04-30] MEDS: FOLIC ACID 1 MG TAB PO SCH (10:34)
[2016-04-30 11:57] LABS: Glucose,Whole Blood 144 mg/dL (75-99)
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
[2016-04-30] MEDS: SODIUM CHLORIDE 0.45% 1,000 ML IV SCH (13:02)
--- NOTE | 2016-04-30 13:15 | P.PN ---
Subjective Principal diagnosis: ANAI with Acute pancreatitis Patient is seen in follow-up for acute kidney injury on chronic any disease. Patient has chronic kidney disease stage III with baseline creatinine in the range of 1-1.5 secondary to diabetic kidney disease. Creatinine did peak at 4.2 this admission and is down to 3.67 today. He is currently sitting up in chair. Does feel dyspneic. NG tube has been discontinued but he is nothing by mouth at this time. He has a Grimes catheter in place and is nonoliguric. No vomiting or diarrhea. Vital signs are stable. General: The patient appeared well nourished and normally developed. HEENT: Head exam is unremarkable. Neck is without jugular venous distension. LUNGS: Lungs are clear to auscultation and percussion. Breath sounds decreased. HEART: Rate and Rhythm are regular. First and second heart sounds normal. No murmurs, rubs or gallops. ABDOMEN: Abdominal exam reveals normal bowel sounds. Non-tender and non- distended. No evidence of peritonitis. EXTREMITITES: No clubbing, cyanosis, or edema. Objective - Vital Signs Vital signs: Vital Signs Temp 99.3 F 04/30/16 11:06 Pulse 109 H 04/30/16 12:00 Resp 20 04/30/16 12:00 BP 133/70 04/30/16 11:06 Pulse Ox 91 L 04/30/16 11:06 Intake & Output 04/29/16 04/30/16 04/30/16 18:59 06:59 18:59 Intake Total 2177.956 1408.16 Output Total 650 700 Balance 3033.938 9749.16 -700 Weight 118 kg Intake: IV 1717 908.16 Calcium Gluconate 1,000 100 mg In Sodium Chloride 0.9 % 100 ml @ 100 mls/hr IVPB ONCE ONE Rx#: [id number] Heparin Sodium,Porcine/ 192 308.16 D5w Pmx 25,000 unit In Dextrose/Water 1 500ml. bag @ 18 UNITS/KG/HR 38. 52 mls/hr IV .[id number] [facility] Rx#:[id number] Sodium Chloride 0.9% 1, 1250 000 ml @ 125 mls/hr IV . Q8H [facility] Rx#:[id number] Sodium Chloride 0.9% 1, 75 600 000 ml @ 75 mls/hr IV . [id number] [facility] Rx#:[id number] cefTRIAXone 2,000 mg In 100 Sodium Chloride 0.9% 100 ml @ 100 mls/hr IVPB Q24HR [facility] Rx#:[id number] Other 460.956 500 Output: Urine 650 700 Uretheral (Grimes) 550 Other: Voiding Method Indwelling Catheter Indwelling Catheter Indwelling Catheter - Labs CBC & Chem 7: 04/30/16 05:38 04/30/16 05:38 Labs: Abnormal Lab Results - Last 24 Hours (Table) 04/29/16 04/30/16 04/30/16 Range/Units 17:49 00:00 05:38 RBC 2.74 L (4.30-5.90) m/uL Hgb 9.3 L D (13.0-17.5) gm/dL Hct 30.0 L (39.0-53.0) % MCV 109.3 H (80.0-100.0) fL Neutrophils # (Manual) 8.1 H (1.3-7.7) k/uL Lymphocytes # (Manual) 0.5 L (1.0-4.8) k/uL APTT (22.0-30.0) sec Sodium (137-145) mmol/L Chloride (98-107) mmol/L BUN (9-20) mg/dL Creatinine (0.66-1.25) mg/dL Glucose (74-99) mg/dL POC Glucose (mg/dL) 180 H 176 H (75-99) mg/dL Calcium (8.4-10.2) mg/dL Total Protein (6.3-8.2) g/dL Albumin (3.5-5.0) g/dL Lipase (23-300) U/L 04/30/16 04/30/16 04/30/16 Range/Units 05:38 05:38 06:00 RBC (4.30-5.90) m/uL Hgb (13.0-17.5) gm/dL Hct (39.0-53.0) % MCV (80.0-100.0) fL Neutrophils # (Manual) (1.3-7.7) k/uL Lymphocytes # (Manual) (1.0-4.8) k/uL APTT 63.7 H (22.0-30.0) sec Sodium 148 H (137-145) mmol/L Chloride 108 H (98-107) mmol/L BUN 63 H (9-20) mg/dL Creatinine 3.67 H (0.66-1.25) mg/dL Glucose 158 H (74-99) mg/dL POC Glucose (mg/dL) 156 H (75-99) mg/dL Calcium 7.4 L (8.4-10.2) mg/dL Total Protein 4.7 L (6.3-8.2) g/dL Albumin 2.2 L (3.5-5.0) g/dL Lipase 1490 H (23-300) U/L 04/30/16 Range/Units 11:53 RBC (4.30-5.90) m/uL Hgb (13.0-17.5) gm/dL Hct (39.0-53.0) % MCV (80.0-100.0) fL Neutrophils # (Manual) (1.3-7.7) k/uL Lymphocytes # (Manual) (1.0-4.8) k/uL APTT (22.0-30.0) sec Sodium (137-145) mmol/L Chloride (98-107) mmol/L BUN (9-20) mg/dL Creatinine (0.66-1.25) mg/dL Glucose (74-99) mg/dL POC Glucose (mg/dL) 144 H (75-99) mg/dL Calcium (8.4-10.2) mg/dL Total Protein (6.3-8.2) g/dL Albumin (3.5-5.0) g/dL Lipase (23-300) U/L Microbiology - Last 24 Hours (Table) 04/28/16 22:00 Blood Culture - Preliminary Blood No Growth after 24 hours 04/28/16 12:15 Blood Culture - Preliminary Blood No Growth after 24 hours 04/28/16 18:40 Urine Culture - Final Urine,Catheterized Assessment and Plan Plan: Assessment: #1. Nonoliguric acute kidney injury secondary to ischemic ATN secondary to pancreatitis. Renal function improving with creatinine down to 3.67 today. #2. Chronic kidney disease stage III secondary to diabetic kidney disease with baseline creatinine in the range of 1-1.5. #3. Bilateral lower extremity DVTs. #4. Hypernatremia secondary to lack of free water intake. #5. Acute pancreatitis. Plan: I will change the IV fluids to half normal saline to be run at 100 mL an hour. Avoid nephrotoxic agents and hypotensive episodes. Maintain Grimes catheter. Repeat electrolytes in the morning. No need for renal replacement therapy at this time.
--- NOTE | 2016-04-30 13:21 | XR ---
EXAMINATION TYPE: XR chest 1V portable DATE OF EXAM: 04/30/2016 1:15 PM COMPARISON: 04/28/2016 HISTORY: NG tube placement TECHNIQUE: Single frontal view of the chest is obtained. FINDINGS: Bilateral consolidation and pleural effusion greater on the left. Right upper lobe subsegm ental consolidation stable. No pneumothorax. NG tube has been removed. IMPRESSION: 1. Stable bilateral infiltrate and pleural effusion. Pleural effusion on the left is increased from t he previous exam.
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
--- NOTE | 2016-04-30 15:28 | PN ---
DATE OF SERVICE: 04/30/2016 This 56-year-old gentleman was admitted with acute pancreatitis, also had multiple other complex medical issues including possible early sepsis, and as well as bilateral DVT also. Seen and evaluated the patient with the nurse practitioner. Please refer to the nurse practitioner notes and impression document as ascribed for further evaluation. Otherwise, follow closely with multiple consultants. Sodium is 148. Sensorium is definitely improved. Amylase is 74 and lipase is 1490. See orders for further details. Prognosis guarded.
--- NOTE | 2016-04-30 15:34 | P.PN ---
Subjective Principal diagnosis: ANAI with Acute pancreatitis Patient is a 56-year-old male being evaluated for acute pancreatitis with history of EtOH abuse. Patient reports improvement in abdominal pain, currently complains of left lower extremity pain. Denies nausea or vomiting. Reports flatus with loose stool this morning. T-max the last 24 hours 99.3. Patient remains tachycardic. Urine output adequate. Amylase and lipase improved from yesterday. Objective - Vital Signs Vital signs: Vital Signs Temp 99.1 F 04/30/16 15:18 Pulse 105 H 04/30/16 15:18 Resp 20 04/30/16 15:18 BP 131/71 04/30/16 15:18 Pulse Ox 93 L 04/30/16 15:18 Intake & Output 04/29/16 04/30/16 04/30/16 18:59 06:59 18:59 Intake Total 2177.956 1408.16 840 Output Total 650 700 Balance 7179.624 8667.16 140 Weight 118 kg Intake: IV 1717 908.16 840 Calcium Gluconate 1,000 100 mg In Sodium Chloride 0.9 % 100 ml @ 100 mls/hr IVPB ONCE ONE Rx#: [id number] Heparin Sodium,Porcine/ 192 308.16 240 D5w Pmx 25,000 unit In Dextrose/Water 1 500ml. bag @ 18 UNITS/KG/HR 38. 52 mls/hr IV .[id number] [facility] Rx#:[id number] Sodium Chloride 0.9% 1, 1250 000 ml @ 125 mls/hr IV . Q8H [facility] Rx#:[id number] Sodium Chloride 0.9% 1, 75 600 600 000 ml @ 75 mls/hr IV . [id number] [facility] Rx#:[id number] cefTRIAXone 2,000 mg In 100 Sodium Chloride 0.9% 100 ml @ 100 mls/hr IVPB Q24HR [facility] Rx#:[id number] Other 460.956 500 Output: Urine 650 700 Uretheral (Grimes) 550 Other: Voiding Method Indwelling Catheter Indwelling Catheter Indwelling Catheter - Exam GENERAL: Pt awake and alert, appears in mild distress. EYES:Sclera anicteric, conjunctiva are normal. ENT: Dry mucous membranes. NG tube to low intermittent suction. LUNGS: Breath sounds diminished to auscultation bilaterally. No wheezes, rales , or rhonchi. HEART: Heart S1, S2, no S3 or S4. No murmurs, rubs or gallops. Patient tachycardic. ABDOMEN: Soft, obese, nontender, distended, hypoactive bowel sounds. No guarding. NEUROLOGICAL: Pt oriented x 3. - Labs CBC & Chem 7: 04/30/16 05:38 04/30/16 05:38 Labs: Abnormal Lab Results - Last 24 Hours (Table) 04/29/16 04/30/16 04/30/16 Range/Units 17:49 00:00 05:38 RBC 2.74 L (4.30-5.90) m/uL Hgb 9.3 L D (13.0-17.5) gm/dL Hct 30.0 L (39.0-53.0) % MCV 109.3 H (80.0-100.0) fL Neutrophils # (Manual) 8.1 H (1.3-7.7) k/uL Lymphocytes # (Manual) 0.5 L (1.0-4.8) k/uL APTT (22.0-30.0) sec Sodium (137-145) mmol/L Chloride (98-107) mmol/L BUN (9-20) mg/dL Creatinine (0.66-1.25) mg/dL Glucose (74-99) mg/dL POC Glucose (mg/dL) 180 H 176 H (75-99) mg/dL Calcium (8.4-10.2) mg/dL Total Protein (6.3-8.2) g/dL Albumin (3.5-5.0) g/dL Lipase (23-300) U/L 04/30/16 04/30/16 04/30/16 Range/Units 05:38 05:38 06:00 RBC (4.30-5.90) m/uL Hgb (13.0-17.5) gm/dL Hct (39.0-53.0) % MCV (80.0-100.0) fL Neutrophils # (Manual) (1.3-7.7) k/uL Lymphocytes # (Manual) (1.0-4.8) k/uL APTT 63.7 H (22.0-30.0) sec Sodium 148 H (137-145) mmol/L Chloride 108 H (98-107) mmol/L BUN 63 H (9-20) mg/dL Creatinine 3.67 H (0.66-1.25) mg/dL Glucose 158 H (74-99) mg/dL POC Glucose (mg/dL) 156 H (75-99) mg/dL Calcium 7.4 L (8.4-10.2) mg/dL Total Protein 4.7 L (6.3-8.2) g/dL Albumin 2.2 L (3.5-5.0) g/dL Lipase 1490 H (23-300) U/L 04/30/16 Range/Units 11:53 RBC (4.30-5.90) m/uL Hgb (13.0-17.5) gm/dL Hct (39.0-53.0) % MCV (80.0-100.0) fL Neutrophils # (Manual) (1.3-7.7) k/uL Lymphocytes # (Manual) (1.0-4.8) k/uL APTT (22.0-30.0) sec Sodium (137-145) mmol/L Chloride (98-107) mmol/L BUN (9-20) mg/dL Creatinine (0.66-1.25) mg/dL Glucose (74-99) mg/dL POC Glucose (mg/dL) 144 H (75-99) mg/dL Calcium (8.4-10.2) mg/dL Total Protein (6.3-8.2) g/dL Albumin (3.5-5.0) g/dL Lipase (23-300) U/L Microbiology - Last 24 Hours (Table) 04/28/16 22:00 Blood Culture - Preliminary Blood No Growth after 24 hours 04/28/16 12:15 Blood Culture - Preliminary Blood No Growth after 24 hours 04/28/16 18:40 Urine Culture - Final Urine,Catheterized Assessment and Plan Plan: Impression: 1. Abdominal pain, present on admission, suspect secondary to acute pancreatitis, improved. Lipase 1490 from 5166 yesterday. 2. Abdominal distention suspect secondary to ileus, improving. Plan: 1. Discontinue nasogastric tube for small bowel decompression. Continue IV hydration. Continue supportive treatment and pain management. Continue to follow with primary service and consultants. Patient is not a surgical candidate at this time. The above impression and plan have been discussed and directed by Dr. Murry. Dayana VICENTE acting as scribe for Dr. Murry.
--- NOTE | 2016-04-30 16:08 | P.PN ---
Addendum entered and electronically signed by Prerna Moctezuma NPC 04/30/16 16: 08: Review of systems: HEENT: Denies headache or focal deficits. Denies any dizziness or lightheadedness. Respiratory: Complains of shortness of breath, denies increased shortness of breath. Cardiac: Denies any chest pain, palpitations. GI: Denies any nausea, vomiting, or diarrhea. Active Medications Acetaminophen (Tylenol Tab) 650 mg PO Q6H PRN PRN Reason: Pain Albuterol Sulfate (Ventolin Nebulized) 2.5 mg INHALATION RT-QID [facility] Last Admin: 04/30/16 16:00 Dose: 2.5 mg Albuterol Sulfate (Ventolin Nebulized) 2.5 mg INHALATION RT-Q2H PRN PRN Reason: Shortness Of Breath Or Wheezing Last Admin: 04/30/16 02:32 Dose: 2.5 mg Allopurinol (Zyloprim) 200 mg PO DAILY [facility] Last Admin: 04/30/16 08:27 Dose: 200 mg Amlodipine Besylate (Norvasc) 5 mg PO BID [facility] Last Admin: 04/30/16 08:26 Dose: 5 mg Aspirin (Aspirin) 325 mg PO DAILY [facility] Last Admin: 04/30/16 08:25 Dose: 325 mg Atorvastatin Calcium (Lipitor) 10 mg PO HS@2100 [facility] Last Admin: 04/29/16 20:17 Dose: 10 mg Calcium Carbonate (Oscal 500+D) 1 each PO BID [facility] Last Admin: 04/30/16 08:26 Dose: 1 each Carvedilol (Coreg) 25 mg PO AC-BID [facility] Last Admin: 04/30/16 06:08 Dose: 25 mg Divalproex Sodium (Depakote) 1,000 mg PO DAILY@1700 [facility] Last Admin: 04/29/16 16:48 Dose: 1,000 mg Divalproex Sodium (Depakote) 1,500 mg PO DAILY@0600 [facility] Last Admin: 04/30/16 06:07 Dose: 1,500 mg Ergocalciferol (Vitamin D2) 50,000 unit PO FR [facility] Fenofibrate (Lofibra) 160 mg PO HS [facility] Last Admin: 04/29/16 20:17 Dose: 160 mg Ferrous Sulfate (Feosol) 325 mg PO DAILY@1700 [facility] Last Admin: 04/29/16 16:48 Dose: 325 mg Folic Acid (Folic Acid) 1 mg PO DAILY@1200 [facility] Last Admin: 04/30/16 10:34 Dose: Not Given Hydromorphone HCl (Dilaudid) 0.5 mg IVP Q4HR PRN PRN Reason: Pain Last Admin: 04/30/16 04:37 Dose: 0.5 mg Heparin Sodium/Dextrose 25,000 (unit/ IV Solution) 500 mls @ 38.52 mls/hr IV .[id number] [facility]; 18 UNITS/KG/HR PRN Reason: Protocol Last Admin: 04/30/16 06:08 Dose: 18 units/kg/hr, 38.52 mls/hr Ceftriaxone Sodium 2,000 mg/ (Sodium Chloride) 100 mls @ 100 mls/hr IVPB Q24HR [facility] Last Admin: 04/30/16 08:34 Dose: 100 mls/hr Sodium Chloride (Saline 0.45%) 1,000 mls @ 100 mls/hr IV .Q10H [facility] Last Admin: 04/30/16 13:02 Dose: 100 mls/hr Insulin Glargine (Lantus) 60 unit SQ HS@2100 [facility] Last Admin: 04/29/16 20:23 Dose: 60 unit Insulin Human Lispro (Humalog) 0 unit SQ Q6HR [facility] PRN Reason: Protocol Last Admin: 04/30/16 12:25 Dose: Not Given Levetiracetam (Keppra) 1,500 mg PO QAM [facility] Last Admin: 04/30/16 08:26 Dose: 1,500 mg Levetiracetam (Keppra) 1,000 mg PO DAILY@1700 [facility] Last Admin: 04/29/16 16:47 Dose: 1,000 mg Nitroglycerin (Nitrostat) 0.4 mg SUBLINGUAL Q5M PRN PRN Reason: Chest Pain Ondansetron HCl (Zofran) 4 mg IVP Q6HR PRN PRN Reason: Nausea And Vomiting Last Admin: 04/27/16 18:26 Dose: 4 mg Pantoprazole Sodium (Protonix) 40 mg PO AC-BRKFST [facility] Last Admin: 04/30/16 06:08 Dose: 40 mg Tramadol HCl (Ultram) 50 mg PO QID PRN PRN Reason: Pain/Discomfort Last Admin: 04/28/16 14:11 Dose: 50 mg Venlafaxine HCl (Effexor Xr) 150 mg PO DAILY [facility] Last Admin: 04/30/16 08:25 Dose: Not Given Original Note: Subjective Principal diagnosis: ANAI with Acute pancreatitis Date of service 04/30/2016. Progress note being dictated for Dr. Munoz. Interval history: This 56-year-old gentleman admitted with acute pancreatitis, possibly early sepsis, bilateral DVT and multiple other medical issues. NG tube discontinued this morning as per surgery. Passing flatus, no bowel movement. Amylase 74, lipase 1490. Continues on 15 L partial rebreather, maintaining O2 sats in the mid 90s, desaturates into the 70s if laying flat. Chest x-ray reporting stable bilateral infiltrates and pleural effusion, left pleural effusion increased from prior exam. Maintained on heparin drip and Rocephin. Sensorium improved. Renal function improving, creatinine 3.67. Denies chest pain or palpitations. Objective - Vital Signs Vital signs: Vital Signs Temp 99.1 F 04/30/16 15:18 Pulse 105 H 04/30/16 15:26 Resp 20 04/30/16 15:26 BP 131/71 04/30/16 15:18 Pulse Ox 93 L 04/30/16 15:18 Intake & Output 04/29/16 04/30/16 04/30/16 18:59 06:59 18:59 Intake Total 2177.956 1408.16 840 Output Total 650 700 Balance 3412.568 3815.16 140 Weight 118 kg Intake: IV 1717 908.16 840 Calcium Gluconate 1,000 100 mg In Sodium Chloride 0.9 % 100 ml @ 100 mls/hr IVPB ONCE ONE Rx#: [id number] Heparin Sodium,Porcine/ 192 308.16 240 D5w Pmx 25,000 unit In Dextrose/Water 1 500ml. bag @ 18 UNITS/KG/HR 38. 52 mls/hr IV .[id number] [facility] Rx#:[id number] Sodium Chloride 0.9% 1, 1250 000 ml @ 125 mls/hr IV . Q8H [facility] Rx#:[id number] Sodium Chloride 0.9% 1, 75 600 600 000 ml @ 75 mls/hr IV . [id number] [facility] Rx#:[id number] cefTRIAXone 2,000 mg In 100 Sodium Chloride 0.9% 100 ml @ 100 mls/hr IVPB Q24HR [facility] Rx#:[id number] Other 460.956 500 Output: Urine 650 700 Uretheral (Grimes) 550 Other: Voiding Method Indwelling Catheter Indwelling Catheter Indwelling Catheter - Exam PHYSICAL EXAM: VITAL SIGNS: As above GENERAL: [Sitting up in chair, respiratory effort increased] HEENT: [Pupils equal conjunctiva normal.] NECK: [Supple, no JVD] RESPIRATORY EFFORT:[Increased] LUNGS: [Diminished, wearing partial rebreather mask] CARDIOVASCULAR[regular S1 and S2, tachycardic] GI: [Abdomen soft, nontender, positive bowel sounds.] PSYCH: [Alert and oriented -2, mood and affect normal.] SKIN: Stage II mid-coccyx, dressing clean dry and intact NEURO: [Paraplegic, higher functions as mentioned earlier] - Labs CBC & Chem 7: 04/30/16 05:38 04/30/16 05:38 Labs: Abnormal Lab Results - Last 24 Hours (Table) 04/29/16 04/30/16 04/30/16 Range/Units 17:49 00:00 05:38 RBC 2.74 L (4.30-5.90) m/uL Hgb 9.3 L D (13.0-17.5) gm/dL Hct 30.0 L (39.0-53.0) % MCV 109.3 H (80.0-100.0) fL Neutrophils # (Manual) 8.1 H (1.3-7.7) k/uL Lymphocytes # (Manual) 0.5 L (1.0-4.8) k/uL APTT (22.0-30.0) sec Sodium (137-145) mmol/L Chloride (98-107) mmol/L BUN (9-20) mg/dL Creatinine (0.66-1.25) mg/dL Glucose (74-99) mg/dL POC Glucose (mg/dL) 180 H 176 H (75-99) mg/dL Calcium (8.4-10.2) mg/dL Total Protein (6.3-8.2) g/dL Albumin (3.5-5.0) g/dL Lipase (23-300) U/L 04/30/16 04/30/1616 Range/Units 05:38 05:38 06:00 RBC (4.30-5.90) m/uL Hgb (13.0-17.5) gm/dL Hct (39.0-53.0) % MCV (80.0-100.0) fL Neutrophils # (Manual) (1.3-7.7) k/uL Lymphocytes # (Manual) (1.0-4.8) k/uL APTT 63.7 H (22.0-30.0) sec Sodium 148 H (137-145) mmol/L Chloride 108 H (98-107) mmol/L BUN 63 H (9-20) mg/dL Creatinine 3.67 H (0.66-1.25) mg/dL Glucose 158 H (74-99) mg/dL POC Glucose (mg/dL) 156 H (75-99) mg/dL Calcium 7.4 L (8.4-10.2) mg/dL Total Protein 4.7 L (6.3-8.2) g/dL Albumin 2.2 L (3.5-5.0) g/dL Lipase 1490 H (23-300) U/L 04/30/16 Range/Units 11:53 RBC (4.30-5.90) m/uL Hgb (13.0-17.5) gm/dL Hct (39.0-53.0) % MCV (80.0-100.0) fL Neutrophils # (Manual) (1.3-7.7) k/uL Lymphocytes # (Manual) (1.0-4.8) k/uL APTT (22.0-30.0) sec Sodium (137-145) mmol/L Chloride (98-107) mmol/L BUN (9-20) mg/dL Creatinine (0.66-1.25) mg/dL Glucose (74-99) mg/dL POC Glucose (mg/dL) 144 H (75-99) mg/dL Calcium (8.4-10.2) mg/dL Total Protein (6.3-8.2) g/dL Albumin (3.5-5.0) g/dL Lipase (23-300) U/L Microbiology - Last 24 Hours (Table) 04/28/16 22:00 Blood Culture - Preliminary Blood No Growth after 24 hours 04/28/16 12:15 Blood Culture - Preliminary Blood No Growth after 24 hours 04/28/16 18:40 Urine Culture - Final Urine,Catheterized Assessment and Plan Plan: 1. Abdominal pain with acute pancreatitis, with possible sepsis. 2. Hyperlipidemia with increased triglycerides. 3. Bilateral lower DVTs. 4. Hypoalbuminemia with mild to moderate protein calorie malnutrition. 5. Increased plasma lactic acid. 6. Acute on chronic renal failure, stage III secondary to acute tubular necrosis multifactorial with prerenal factors. 7. Hyperkalemia secondary to acute tubular necrosis. 8. Leukocytosis secondary to possibly sepsis 9. Obesity, BMI 38.4 10. CAD 11. History of CHF, EF currently unknown 12. History of CVA, TIA 13. 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 Diabetes mellitus type 2 15. Gastroesophageal reflux disease 15. Essential hypertension 16. Hyperlipidemia 17. Degenerative joint disease 18. Seizure disorder 19. Peripheral vascular disease 20. Bilateral atelectasis 21. History of sacral decubitus, currently with stage II pressure ulcer, mid- coccyx 22. Heparin monitoring 23. Bilateral pleural effusions, increasing left pleural effusion per chest x- ray 24. Hypernatremia secondary to free water intake deficit Plan: Continue on current medication regime, empiric antibiotics, nebulized bronchodilators, monitoring and symptomatic treatment. Diet advancement as per GI. Follow closely with multiple consults. Specialty bed ordered as mentioned above. Wound care as per ID. Continue anticoagulation with heparin protocol, Xarelto coverage being verified by case management. Echo ordered .IV fluids adjusted as per nephrology .close monitoring of electrolytes and renal function with repeat labs ordered for a.m. Prognosis guarded given multiple complex medical issues. The impression and plan of care has been dictated as directed. : I performed a H&P examination of this patient and discussed the same with the dictator. I agree with the dictator's note. Any additional findings/opinions/ etc. will be noted.
[2016-04-30] MEDS: FERROUS SULFATE 325 MG TAB PO SCH (17:26)
[2016-04-30 17:41] LABS: Glucose,Whole Blood 151 mg/dL (75-99)
[2016-04-30] MEDS: ATORVASTATIN 10 MG TAB PO SCH (20:06)
[2016-04-30] MEDS: FENOFIBRATE 160 MG TAB PO SCH (20:06)
[2016-04-30] MEDS: INSULIN GLARGINE 100 UNIT/ML 10 ML VIAL SQ SCH (20:11)
--- NOTE | 2016-04-30 22:52 | P.PN ---
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 Patient is known to ID service as he was seen in May 2015 at which time he was treated for cellulitis of the right lower extremity. At that time he underwent duplex study that was negative for DVT, x-ray that showed potential for abscess and CAT scan of the lower extremity was done that failed to reveal an abscess and was negative for osteomyelitis. He was treated with local wound care with Silvadene and he was discharged on oral Bactrim. Patient currently resides at [facility]. He states he had a sudden onset of chest pain on the left side while he was watching TV. It was sharp with a 5 out of 10 with mild shortness of breath. Patient was transferred to [facility] where he received 4 baby aspirin and 3 nitroglycerin that did not change his pain. His d -dimer was slightly elevated at 0.73. BUN was 26 and creatinine 1.8. It appears patient's baseline creatinine is 1.5-1.7. He was afebrile. Troponin was 0.017. He was given 1 L of IV fluids and there was concern for pulmonary embolism and patient was transferred to [facility] for VQ scan. Patient was admitted to the selective care unit. Unfortunately he was unable to complete the VQ scan. However, venous Dopplers of the bilateral lower extremities were positive on both sides. He underwent a chest x-ray that showed left lower lobe atelectasis or infiltrate and cardiomegaly. CAT scan of the abdomen and pelvis revealed acute pancreatitis. He subsequently underwent x -ray films that showed possible obstruction or ileus. Patient's last bowel movement was apparently 2 days ago. Repeat lab work showed leukocytosis of 16.4 , lactic acid 2.4 and BUN 43 with creatinine 3.5. Albumin 3.2. Potassium was 6.06 and he is status post Kayexalate. His heart rate has been running 120-130 since admission. He has the following consultations in place cardiology, pulmonary medicine, nephrology, surgery. Amylase was 632 and lipase 13,509. Patient continues to have left upper quadrant lower rib pain. He does complain of nausea without vomiting. He denies any diarrhea. He denies any cough or sputum reduction. He states he has shortness of breath all the time and he normally has rapid respirations per the patient area he denies any problems with his legs that he is aware of. He is incontinent of urine. Seems to be slightly improved today. More awake and alert. Knows that he is Ruchi Marin. Was able to state my name. Abdominal pains improved." Bowel movements occurred. Objective - Vital Signs Vital signs: Vital Signs Temp 99.1 F 04/30/16 15:18 Pulse 101 H 04/30/16 20:55 Resp 18 04/30/16 16:58 BP 131/71 04/30/16 15:18 Pulse Ox 94 L 04/30/16 20:41 Intake & Output 04/30/16 04/30/16 05/01/16 06:59 18:59 06:59 Intake Total 1408.16 1274.634 Output Total 1999 Balance 1408.16 -725.366 Weight 118 kg Intake: IV 908.16 840 Heparin Sodium,Porcine/ 308.16 240 D5w Pmx 25,000 unit In Dextrose/Water 1 500ml. bag @ 18 UNITS/KG/HR 38. 52 mls/hr IV .[id number] LUIS MANUEL Rx#:[id number] Sodium Chloride 0.9% 1, 600 600 000 ml @ 75 mls/hr IV . [id number] LUIS MANUEL Rx#:[id number] Other 500 434.634 Output: Urine 2000 Other: Voiding Method Indwelling Catheter Indwelling Catheter - Exam Gen: This is a obese 56-year-old male. He is laying in bed and noted to have rapid respirations but is able to speak in sentences HEENT: Head is atraumatic, normocephalic. Pupils equal, round. Sclerae is anicteric. Conjunctiva pink. Mucous membranes of the mouth are moist. No thrush noted. NECK: Supple. No JVD. No lymphadenopathy. No thyromegaly. LUNGS: Clear to auscultation. No wheezes or rhonchi. No intercostal retractions. HEART: Regular rate and rhythm. No murmur. ABDOMEN: Slightly distended. Bowel sounds are present. Generalized tenderness to the entire abdomen less tender to the left upper quadrant today. EXTREMITIES: Trace bilateral pedal edema. No erythema or wounds noted to the bilateral lower extremities NEUROLOGICAL: Patient is awake, alert - Labs CBC & Chem 7: 04/30/16 05:38 04/30/16 05:38 Labs: Abnormal Lab Results - Last 24 Hours (Table) 04/30/16 04/30/16 04/30/16 Range/Units 00:00 05:38 05:38 RBC 2.74 L (4.30-5.90) m/uL Hgb 9.3 L D (13.0-17.5) gm/dL Hct 30.0 L (39.0-53.0) % MCV 109.3 H (80.0-100.0) fL Neutrophils # (Manual) 8.1 H (1.3-7.7) k/uL Lymphocytes # (Manual) 0.5 L (1.0-4.8) k/uL APTT (22.0-30.0) sec Sodium 148 H (137-145) mmol/L Chloride 108 H (98-107) mmol/L BUN 63 H (9-20) mg/dL Creatinine 3.67 H (0.66-1.25) mg/dL Glucose 158 H (74-99) mg/dL POC Glucose (mg/dL) 176 H (75-99) mg/dL Calcium 7.4 L (8.4-10.2) mg/dL Total Protein 4.7 L (6.3-8.2) g/dL Albumin 2.2 L (3.5-5.0) g/dL Lipase 1490 H (23-300) U/L 04/30/16 04/30/16 04/30/16 Range/Units 05:38 06:00 11:53 RBC (4.30-5.90) m/uL Hgb (13.0-17.5) gm/dL Hct (39.0-53.0) % MCV (80.0-100.0) fL Neutrophils # (Manual) (1.3-7.7) k/uL Lymphocytes # (Manual) (1.0-4.8) k/uL APTT 63.7 H (22.0-30.0) sec Sodium (137-145) mmol/L Chloride (98-107) mmol/L BUN (9-20) mg/dL Creatinine (0.66-1.25) mg/dL Glucose (74-99) mg/dL POC Glucose (mg/dL) 156 H 144 H (75-99) mg/dL Calcium (8.4-10.2) mg/dL Total Protein (6.3-8.2) g/dL Albumin (3.5-5.0) g/dL Lipase (23-300) U/L 04/30/16 Range/Units 16:51 RBC (4.30-5.90) m/uL Hgb (13.0-17.5) gm/dL Hct (39.0-53.0) % MCV (80.0-100.0) fL Neutrophils # (Manual) (1.3-7.7) k/uL Lymphocytes # (Manual) (1.0-4.8) k/uL APTT (22.0-30.0) sec Sodium (137-145) mmol/L Chloride (98-107) mmol/L BUN (9-20) mg/dL Creatinine (0.66-1.25) mg/dL Glucose (74-99) mg/dL POC Glucose (mg/dL) 151 H (75-99) mg/dL Calcium (8.4-10.2) mg/dL Total Protein (6.3-8.2) g/dL Albumin (3.5-5.0) g/dL Lipase (23-300) U/L Microbiology - Last 24 Hours (Table) 04/28/16 22:00 Blood Culture - Preliminary Blood No Growth after 24 hours 04/28/16 12:15 Blood Culture - Preliminary Blood No Growth after 24 hours 04/28/16 18:40 Urine Culture - Final Urine,Catheterized Laboratory Results WBC 9.5 k/uL (3.8-10.6) 04/30/16 05:38 RBC 2.74 m/uL (4.30-5.90) L 04/30/16 05:38 Hgb 9.3 gm/dL (13.0-17.5) L D 04/30/16 05:38 Hct 30.0 % (39.0-53.0) L 04/30/16 05:38 MCV 109.3 fL (80.0-100.0) H 04/30/16 05:38 MCH 34.0 pg (25.0-35.0) 04/30/16 05:38 MCHC 31.1 g/dL (31.0-37.0) 04/30/16 05:38 RDW 15.1 % (11.5-15.5) 04/30/16 05:38 Plt Count 217 k/uL (150-450) 04/30/16 05:38 Neutrophils % 85 % 04/27/16 10:33 Neutrophils % (Manual) 49.0 % 04/30/16 05:38 Band Neutrophils % 36.5 % 04/30/16 05:38 Lymphocytes % 6 % 04/27/16 10:33 Lymphocytes % (Manual) 5.0 % 04/30/16 05:38 Monocytes % 7 % 04/27/16 10:33 Monocytes % (Manual) 9.0 % 04/30/16 05:38 Eosinophils % 1 % 04/27/16 10:33 Basophils % 0 % 04/27/16 10:33 Metamyelocytes % 5.0 % 04/29/16 05:42 Myelocytes % 0.5 % 04/30/16 05:38 Neutrophils # 8.6 k/uL (1.3-7.7) H 04/27/16 10:33 Neutrophils # (Manual) 8.1 k/uL (1.3-7.7) H 04/30/16 05:38 Lymphocytes # 0.6 k/uL (1.0-4.8) L 04/27/16 10:33 Lymphocytes # (Manual) 0.5 k/uL (1.0-4.8) L 04/30/16 05:38 Monocytes # 0.7 k/uL (0-1.0) 04/27/16 10:33 Monocytes # (Manual) 0.9 k/uL (0-1.0) 04/30/16 05:38 Eosinophils # 0.1 k/uL (0-0.7) 04/27/16 10:33 Basophils # 0.0 k/uL (0-0.2) 04/27/16 10:33 Nucleated RBCs 0 /100 WBC (0-0) 04/30/16 05:38 Manual Slide Review Performed 04/30/16 05:38 Toxic Granulation Present 04/29/16 05:42 Toxic Vacuolation Present 04/29/16 05:42 Polychromasia Present 04/29/16 05:42 Hypochromasia Slight 04/30/16 05:38 Anisocytosis (manual) Present 04/28/16 06:08 Macrocytosis Marked 04/30/16 05:38 PT 12.6 sec (9.0-12.0) H 04/28/16 15:00 INR 1.3 (<1.1) 04/28/16 15:00 APTT 63.7 sec (22.0-30.0) H 04/30/16 05:38 D-Dimer 2.06 mg/L FEU (<0.60) H 04/27/16 10:33 Sodium 148 mmol/L (137-145) H 04/30/16 05:38 Potassium 4.3 mmol/L (3.5-5.1) 04/30/16 05:38 Chloride 108 mmol/L (98-107) H 04/30/16 05:38 Carbon Dioxide 27 mmol/L (22-30) 04/30/16 05:38 Anion Gap 13 mmol/L 04/30/16 05:38 BUN 63 mg/dL (9-20) H 04/30/16 05:38 Creatinine 3.67 mg/dL (0.66-1.25) H 04/30/16 05:38 Est GFR (MDRD) Af Amer 21 (>60 ml/min/1.73 sqM) 04/30/16 05:38 Est GFR (MDRD) Non-Af 17 (>60 ml/min/1.73 sqM) 04/30/16 05:38 Glucose 158 mg/dL (74-99) H 04/30/16 05:38 POC Glucose (mg/dL) 151 mg/dL (75-99) H 04/30/16 16:51 POC Glu [employer]ding [employer] ID Nicol Trimble 04/30/16 16:[address] Glu mg/dL 151 mg/dL 04/28/16 10:44 Hemoglobin A1c 6.9 % (4.2-6.1) H 04/28/16 10:44 Plasma Lactic Acid [place] 2.1 mmol/L (0.7-2.0) H 04/28/16 15:00 Calcium 7.4 mg/dL (8.4-10.2) L 04/30/16 05:38 Total Bilirubin 0.6 mg/dL (0.2-1.3) 04/30/16 05:38 AST 35 U/L (17-59) 04/30/16 05:38 ALT 32 U/L (21-72) 04/30/16 05:38 Alkaline Phosphatase 67 U/L (38-126) 04/30/16 05:38 Total Creatine Kinase 64 U/L (55-170) 04/27/16 16:08 CK-MB (CK-2) 0.5 ng/mL (0.0-2.4) 04/27/16 16:08 CK-MB (CK-2) Rel Index 0.8 04/27/16 16:08 Troponin I <0.012 ng/mL (0.000-0.034) 04/27/16 16:08 NT-Pro-B Natriuret Pep 1810 pg/mL 04/28/16 06:08 Total Protein 4.7 g/dL (6.3-8.2) L 04/30/16 05:38 Albumin 2.2 g/dL (3.5-5.0) L 04/30/16 05:38 Triglycerides 235 mg/dL (<150) H 04/28/16 06:08 Cholesterol 120 mg/dL (<200) 04/28/16 06:08 LDL Cholesterol, Calc 46 mg/dL (0-99) 04/28/16 06:08 HDL Cholesterol 27 mg/dL (40-60) L 04/28/16 06:08 Amylase 74 U/L (30-110) 04/30/16 05:38 Lipase 1490 U/L (23-300) H 04/30/16 05:38 Urine Color Yellow 04/28/16 18:40 Urine Appearance Cloudy (Clear) 04/28/16 18:40 Urine pH 5.5 (5.0-8.0) 04/28/16 18:40 Ur Specific [place] 1.018 (1.001-1.035) 04/28/16 18:40 Urine Protein 2+ (Negative) H 04/28/16 18:40 Urine Glucose (UA) Trace (Negative) H 04/28/16 18:40 Urine Ketones Trace (Negative) H 04/28/16 18:40 Urine Blood Negative (Negative) 04/28/16 18:40 Urine Nitrate Negative (Negative) 04/28/16 18:40 Urine Bilirubin Negative (Negative) 04/28/16 18:40 Urine Urobilinogen <2.0 mg/dL (<2.0) 04/28/16 18:40 Ur Leukocyte Esterase Small (Negative) H 04/28/16 18:40 Urine WBC 26 /hpf (0-5) H 04/28/16 18:40 Amorphous Sediment Occasional /hpf (None) H 04/28/16 18:40 Hyaline Casts 22 /lpf (0-2) H 04/28/16 18:40 Granular Casts 19 /lpf (0) 04/28/16 18:40 Urine Mucus Rare /hpf (None) H 04/28/16 18:40 Hepatitis A IgM Ab NEGATIVE 04/28/16 21:50 Hep Bs Antigen Negative 04/28/16 21:50 Hep B Core IgM Ab NEGATIVE 04/28/16 21:50 Hep C IgG Ab Negative (Negative) 04/28/16 21:50 Microbiology 04/28/16 22:00 Blood Blood Culture - Preliminary No Growth after 24 hours 04/28/16 12:15 Blood Blood Culture - Preliminary No Growth after 24 hours 04/28/16 18:40 Urine,Catheterized Urine Culture - Final Assessment and Plan (1) Pancreatitis Narrative/Plan: 56-year-old male [facility] abdominal [facility]. Evidence of phillip pancreatitis. Also had lower extremity edema without evidence of bilateral lower extremities deep venous thrombosis and likely pulmonary in this. Currently being treated with an heparin drip has been seen by hematology. No evidence of any significant sepsis at this time. Antibiotic therapy was tailored to ceftriaxone. The cultures remain negative we'll continue to monitor and consider discontinuation of antibiotics soon Leukocytosis is improving now at 9.5, and like in the bases of his extensive pancreatitis. Status: Acute (2) Deep venous thrombosis Status: Acute (3) Leukocytosis Status: Acute
[2016-05-01] MEDS: SODIUM CHLORIDE 0.45% 1,000 ML IV SCH ×3 (00:03→16:57)
[2016-05-01] MEDS: INSULIN LISPRO (humaLOG) 300 UNIT/3 ML VIAL SQ SCH ×5 (00:03→23:49)
[2016-05-01 00:05] LABS: Glucose,Whole Blood 153 mg/dL (75-99)
[2016-05-01 06:05] LABS: Glucose,Whole Blood 118 mg/dL (75-99)
[2016-05-01 06:31] LABS: CH 33.6; CHCM 30.8; HCT 29.8 % (39.0-53.0); HDW 2.75; HGB 9.2 gm/dL (13.0-17.5); Hypochromasia Slight; Immature Gran Flag Marked; MCV 109.7 fL (80.0-100.0); Macrocytosis Marked; Mean Platelet Volume 8.8; RBC 2.71 m/uL (4.30-5.90); RDW 14.9 % (11.5-15.5); WBC 3.6 k/uL (3.8-10.6); WBC (Perox) 4.08
[2016-05-01 06:36] LABS: ALT 33 U/L (21-72); AST 37 U/L (17-59); Alkaline Phosphatase 48 U/L (38-126); Amylase <30 U/L (30-110); Anion Gap 12 mmol/L; Blood Urea Nitrogen 57 mg/dL (9-20); Calcium 7.9 mg/dL (8.4-10.2); Carbon Dioxide 28 mmol/L (22-30); Chloride 106 mmol/L (98-107); Glucose 116 mg/dL (74-99); Non-African American GFR(MDRD) 27 (>60 ml/min/1.73 sqM); Phosphorous 5.8 mg/dL (2.5-4.5); Potassium 3.4 mmol/L (3.5-5.1); Sodium 146 mmol/L (137-145); Total Bilirubin 0.6 mg/dL (0.2-1.3); Total Protein 4.2 g/dL (6.3-8.2)
[2016-05-01] MEDS: PANTOPRAZOLE 40 MG TABLET PO SCH (06:47)
[2016-05-01] MEDS: DIVALPROEX 500 MG TABLET.DR PO SCH ×2 (06:47→17:56)
[2016-05-01] MEDS: CARVEDILOL 12.5 MG TAB PO SCH ×2 (06:47→16:59)
[2016-05-01] MEDS: HEPARIN SODIUM,PORCINE/D5W PMX 25,000 UNIT in DEXTROSE/WATER 1 500ML.BAG IV SCH ×2 (06:47→16:57)
[2016-05-01] MEDS ORDERED: POTASSIUM CHLORIDE ER 20 MEQ TAB.ER PO STA (07:47)
--- NOTE | 2016-05-01 08:06 | P.PN ---
Subjective Principal diagnosis: ANAI with Acute pancreatitis Patient is seen in follow-up for acute kidney injury on chronic any disease. Patient has chronic kidney disease stage III with baseline creatinine in the range of 1-1.5 secondary to diabetic kidney disease. Creatinine did peak at 4.2 this admission and is down to 2.5 today. He is currently resting in bed. NG tube has been discontinued and he has been started on clear liquid diet which she is tolerating well. He has a Grimes catheter in place and is nonoliguric. No vomiting or diarrhea. Vital signs are stable. General: The patient appeared well nourished and normally developed. HEENT: Head exam is unremarkable. Neck is without jugular venous distension. LUNGS: Lungs are clear to auscultation and percussion. Breath sounds decreased. HEART: Rate and Rhythm are regular. First and second heart sounds normal. No murmurs, rubs or gallops. ABDOMEN: Abdominal exam reveals normal bowel sounds. Non-tender and non- distended. No evidence of peritonitis. EXTREMITITES: No clubbing, cyanosis, or edema. Objective - Vital Signs Vital signs: Vital Signs Temp 98.1 F 05/01/16 03:45 Pulse 113 H 05/01/16 03:45 Resp 20 05/01/16 03:45 BP 133/73 05/01/16 03:45 Pulse Ox 95 05/01/16 03:45 Intake & Output 04/30/16 05/01/16 05/01/16 18:59 06:59 18:59 Intake Total 1274.634 600 30.816 Output Total 1999 1475 Balance -725.366 -875 30.816 Weight 110.3 kg Intake: IV 840 Heparin Sodium,Porcine/ 240 D5w Pmx 25,000 unit In Dextrose/Water 1 500ml. bag @ 18 UNITS/KG/HR 38. 52 mls/hr IV .[id number] LUIS MANUEL Rx#:[id number] Sodium Chloride 0.9% 1, 600 000 ml @ 75 mls/hr IV . [id number] LUIS MANUEL Rx#:[id number] Oral 100 Other 434.634 500 30.816 Output: Urine 1999 1475 Other: Voiding Method Indwelling Catheter Indwelling Catheter # Bowel Movements 2 - Labs CBC & Chem 7: 05/01/16 05:40 12/16/16 05:40 Labs: Abnormal Lab Results - Last 24 Hours (Table) 04/30/16 04/30/16 05/01/16 Range/Units 11:53 16:51 00:02 WBC (3.8-10.6) k/uL RBC (4.30-5.90) m/uL Hgb (13.0-17.5) gm/dL Hct (39.0-53.0) % MCV (80.0-100.0) fL APTT (22.0-30.0) sec Sodium (137-145) mmol/L Potassium (3.5-5.1) mmol/L BUN (9-20) mg/dL Creatinine (0.66-1.25) mg/dL Glucose (74-99) mg/dL POC Glucose (mg/dL) 144 H 151 H 153 H (75-99) mg/dL Calcium (8.4-10.2) mg/dL Phosphorus (2.5-4.5) mg/dL Total Protein (6.3-8.2) g/dL Albumin (3.5-5.0) g/dL Amylase (30-110) U/L Lipase (23-300) U/L 05/01/16 05/01/16 05/01/16 Range/Units 05:40 05:40 05:40 WBC 3.6 L (3.8-10.6) k/uL RBC 2.71 L (4.30-5.90) m/uL Hgb 9.2 L (13.0-17.5) gm/dL Hct 29.8 L (39.0-53.0) % MCV 109.7 H (80.0-100.0) fL APTT 44.3 H (22.0-30.0) sec Sodium 146 H (137-145) mmol/L Potassium 3.4 L (3.5-5.1) mmol/L BUN 57 H (9-20) mg/dL Creatinine 2.50 H (0.66-1.25) mg/dL Glucose 116 H (74-99) mg/dL POC Glucose (mg/dL) (75-99) mg/dL Calcium 7.9 L (8.4-10.2) mg/dL Phosphorus 5.8 H (2.5-4.5) mg/dL Total Protein 4.2 L (6.3-8.2) g/dL Albumin 2.1 L (3.5-5.0) g/dL Amylase <30 L (30-110) U/L Lipase 628 H (23-300) U/L 05/01/16 Range/Units 05:51 WBC (3.8-10.6) k/uL RBC (4.30-5.90) m/uL Hgb (13.0-17.5) gm/dL Hct (39.0-53.0) % MCV (80.0-100.0) fL APTT (22.0-30.0) sec Sodium (137-145) mmol/L Potassium (3.5-5.1) mmol/L BUN (9-20) mg/dL Creatinine (0.66-1.25) mg/dL Glucose (74-99) mg/dL POC Glucose (mg/dL) 118 H (75-99) mg/dL Calcium (8.4-10.2) mg/dL Phosphorus (2.5-4.5) mg/dL Total Protein (6.3-8.2) g/dL Albumin (3.5-5.0) g/dL Amylase (30-110) U/L Lipase (23-300) U/L Microbiology - Last 24 Hours (Table) 04/28/16 22:00 Blood Culture - Preliminary Blood No Growth after 24 hours 04/28/16 12:15 Blood Culture - Preliminary Blood No Growth after 24 hours Assessment and Plan Plan: Assessment: #1. Nonoliguric acute kidney injury secondary to ischemic ATN secondary to pancreatitis. Renal function improving with creatinine down to 2.5 today. #2. Chronic kidney disease stage III secondary to diabetic kidney disease with baseline creatinine in the range of 1-1.5. #3. Bilateral lower extremity DVTs. #4. Hypernatremia secondary to lack of free water intake. #5. Acute pancreatitis. #6. Hypokalemia secondary to increased urinary potassium losses. Plan: Maintain IV fluids with half normal saline to be run at 100 mL an hour. Avoid nephrotoxic agents and hypotensive episodes. Maintain Grimes catheter. Repeat electrolytes in the morning. No need for renal replacement therapy at this time. Replace potassium. 40 mEq today.
[2016-05-01] MEDS: ALBUTEROL NEBULIZED 2.5 MG/3 ML INHALATION SCH ×4 (08:07→20:46)
[2016-05-01 08:11] LABS: Add Differential Manual Differential
[2016-05-01] MEDS: levETIRAcetam 500 MG TAB PO SCH ×2 (08:11→16:59)
[2016-05-01] MEDS: ALLOPURINOL 100 MG TAB PO SCH (08:11)
[2016-05-01] MEDS: ASPIRIN 325 MG TAB PO SCH (08:11)
[2016-05-01] MEDS: traMADol 50 MG TAB PO PRN (08:12)
[2016-05-01] MEDS: amLODIPine 5 MG TAB PO SCH ×2 (08:12→20:06)
[2016-05-01] MEDS: VENLAFAXINE HCL ER 150 MG CAP PO SCH (08:12)
[2016-05-01] MEDS: CALCIUM CARB-VIT D 500MG-200UN 1 EACH TAB PO SCH ×2 (08:12→20:06)
[2016-05-01] MEDS: cefTRIAXone 2,000 MG in SODIUM CHLORIDE 0.9% 100 ML IVPB SCH (08:13)
[2016-05-01 08:23] LABS: Nucleated Red Blood Cells 0 /100 WBC (0-0); Total Cells Counted 200
--- NOTE | 2016-05-01 11:03 | P.PN ---
Subjective Principal diagnosis: ANAI with Acute pancreatitis The patient is somewhat stronger and more alert. He still intermittently confused. NG tube has been removed, and he is tolerating liquids by mouth. He denies any nausea or vomiting currently. Denies any obvious bleeding. He still quite short of breath with exertion, even with moving around in bed. This is mildly improved. Abdominal pain is better and well controlled on current regimen. He states that she is able to urinate without difficulty. Some generalized swelling is present in arms and legs. Review of systems otherwise as per HPI and negative out of 10 Objective - Vital Signs Vital signs: Vital Signs Temp 97.4 F L 05/01/16 08:00 Pulse 113 H 05/01/16 08:20 Resp 20 05/01/16 08:00 BP 175/74 05/01/16 08:00 Pulse Ox 95 05/01/16 08:11 Intake & Output 04/30/16 05/01/16 05/01/16 18:59 06:59 18:59 Intake Total 1274.634 600 130.816 Output Total 1999 1475 Balance -725.366 -875 130.816 Weight 110.3 kg Intake: IV 840 Heparin Sodium,Porcine/ 240 D5w Pmx 25,000 unit In Dextrose/Water 1 500ml. bag @ 18 UNITS/KG/HR 38. 52 mls/hr IV .[id number] LUIS MANUEL Rx#:[id number] Sodium Chloride 0.9% 1, 600 000 ml @ 75 mls/hr IV . [id number] LUIS MANUEL Rx#:[id number] Oral 100 100 Other 434.634 500 30.816 Output: Urine 1999 1475 Other: Voiding Method Indwelling Catheter Indwelling Catheter Indwelling Catheter # Bowel Movements 2 1 - Constitutional General appearance: Present: mild distress - EENT Eyes: Present: EOMI, PERRLA ENT: Present: hearing grossly normal - Respiratory Respiratory: bilateral: diminished - Gastrointestinal General gastrointestinal: Present: decreased bowel sounds, soft - Labs CBC & Chem 7: 05/01/16 05:40 05/01/16 05:40 Labs: Abnormal Lab Results - Last 24 Hours (Table) 04/30/16 04/30/16 05/01/16 Range/Units 11:53 16:51 00:02 WBC (3.8-10.6) k/uL RBC (4.30-5.90) m/uL Hgb (13.0-17.5) gm/dL Hct (39.0-53.0) % MCV (80.0-100.0) fL Lymphocytes # (Manual) (1.0-4.8) k/uL APTT (22.0-30.0) sec Sodium (137-145) mmol/L Potassium (3.5-5.1) mmol/L BUN (9-20) mg/dL Creatinine (0.66-1.25) mg/dL Glucose (74-99) mg/dL POC Glucose (mg/dL) 144 H 151 H 153 H (75-99) mg/dL Calcium (8.4-10.2) mg/dL Phosphorus (2.5-4.5) mg/dL Total Protein (6.3-8.2) g/dL Albumin (3.5-5.0) g/dL Amylase (30-110) U/L Lipase (23-300) U/L 05/01/16 05/01/16 05/01/16 Range/Units 05:40 05:40 05:40 WBC 3.6 L (3.8-10.6) k/uL RBC 2.71 L (4.30-5.90) m/uL Hgb 9.2 L (13.0-17.5) gm/dL Hct 29.8 L (39.0-53.0) % MCV 109.7 H (80.0-100.0) fL Lymphocytes # (Manual) 0.2 L (1.0-4.8) k/uL APTT 44.3 H (22.0-30.0) sec Sodium 146 H (137-145) mmol/L Potassium 3.4 L (3.5-5.1) mmol/L BUN 57 H (9-20) mg/dL Creatinine 2.50 H (0.66-1.25) mg/dL Glucose 116 H (74-99) mg/dL POC Glucose (mg/dL) (75-99) mg/dL Calcium 7.9 L (8.4-10.2) mg/dL Phosphorus 5.8 H (2.5-4.5) mg/dL Total Protein 4.2 L (6.3-8.2) g/dL Albumin 2.1 L (3.5-5.0) g/dL Amylase <30 L (30-110) U/L Lipase 628 H (23-300) U/L 05/01/16 Range/Units 05:51 WBC (3.8-10.6) k/uL RBC (4.30-5.90) m/uL Hgb (13.0-17.5) gm/dL Hct (39.0-53.0) % MCV (80.0-100.0) fL Lymphocytes # (Manual) (1.0-4.8) k/uL APTT (22.0-30.0) sec Sodium (137-145) mmol/L Potassium (3.5-5.1) mmol/L BUN (9-20) mg/dL Creatinine (0.66-1.25) mg/dL Glucose (74-99) mg/dL POC Glucose (mg/dL) 118 H (75-99) mg/dL Calcium (8.4-10.2) mg/dL Phosphorus (2.5-4.5) mg/dL Total Protein (6.3-8.2) g/dL Albumin (3.5-5.0) g/dL Amylase (30-110) U/L Lipase (23-300) U/L Microbiology - Last 24 Hours (Table) 04/28/16 22:00 Blood Culture - Preliminary Blood No Growth after 24 hours 04/28/16 12:15 Blood Culture - Preliminary Blood No Growth after 24 hours Assessment and Plan (1) Deep venous thrombosis Narrative/Plan: The patient continues on IV heparin with good tolerance. NG tube has been removed and he is now tolerating liquids. Renal function is improving. Once by mouth feeds are established, I would recommend changing him to an oral formulation. Given his chronic kidney disease, Eliquis would likely be the best choice. Coumadin would be another option, but I would anticipate marked difficulty in regulating the INR He should be on a correlation for at least a year. However his underlying risk factors, are likely to continue. Therefore he will need reevaluation at that time to see if anticoagulation can be stopped or needs to be continued Status: Acute
--- NOTE | 2016-05-01 11:22 | P.PN ---
Subjective Principal diagnosis: ANAI with Acute pancreatitis Patient is a 56-year-old male being evaluated for acute pancreatitis with history of EtOH abuse. Patient complains of abdominal pain but states it's the same as yesterday. Denies nausea or vomiting. Reports flatus with loose stool. Tolerating clear liquid diet. Afebrile. Patient remains tachycardic. Urine output adequate. Amylase and lipase improved from yesterday. Objective - Vital Signs Vital signs: Vital Signs Temp 97.4 F L 05/01/16 08:00 Pulse 113 H 05/01/16 08:20 Resp 20 05/01/16 08:00 BP 175/74 05/01/16 08:00 Pulse Ox 95 05/01/16 08:11 Intake & Output 04/30/16 05/01/16 05/01/16 18:59 06:59 18:59 Intake Total 1274.634 600 130.816 Output Total 1999 1475 Balance -725.366 -875 130.816 Weight 110.3 kg Intake: IV 840 Heparin Sodium,Porcine/ 240 D5w Pmx 25,000 unit In Dextrose/Water 1 500ml. bag @ 18 UNITS/KG/HR 38. 52 mls/hr IV .[id number] [facility] Rx#:[id number] Sodium Chloride 0.9% 1, 600 000 ml @ 75 mls/hr IV . [id number] [facility] Rx#:[id number] Oral 100 100 Other 434.634 500 30.816 Output: Urine 1999 1475 Other: Voiding Method Indwelling Catheter Indwelling Catheter Indwelling Catheter # Bowel Movements 2 1 - Exam GENERAL: Pt awake and alert, appears in no apparent distress. EYES:Sclera anicteric, conjunctiva are normal. LUNGS: Breath sounds diminished to auscultation bilaterally. HEART: Heart S1, S2, no S3 or S4. No murmurs, rubs or gallops. Patient tachycardic. ABDOMEN: Soft, obese, mild diffuse tenderness, distended, hypoactive bowel sounds. No guarding. NEUROLOGICAL: Pt oriented x 3. - Labs CBC & Chem 7: 05/01/16 05:40 05/01/16 05:40 Labs: Abnormal Lab Results - Last 24 Hours (Table) 04/30/16 04/30/16 05/01/16 Range/Units 11:53 16:51 00:02 WBC (3.8-10.6) k/uL RBC (4.30-5.90) m/uL Hgb (13.0-17.5) gm/dL Hct (39.0-53.0) % MCV (80.0-100.0) fL Lymphocytes # (Manual) (1.0-4.8) k/uL APTT (22.0-30.0) sec Sodium (137-145) mmol/L Potassium (3.5-5.1) mmol/L BUN (9-20) mg/dL Creatinine (0.66-1.25) mg/dL Glucose (74-99) mg/dL POC Glucose (mg/dL) 144 H 151 H 153 H (75-99) mg/dL Calcium (8.4-10.2) mg/dL Phosphorus (2.5-4.5) mg/dL Total Protein (6.3-8.2) g/dL Albumin (3.5-5.0) g/dL Amylase (30-110) U/L Lipase (23-300) U/L 05/01/16 05/01/16 05/01/16 Range/Units 05:40 05:40 05:40 WBC 3.6 L (3.8-10.6) k/uL RBC 2.71 L (4.30-5.90) m/uL Hgb 9.2 L (13.0-17.5) gm/dL Hct 29.8 L (39.0-53.0) % MCV 109.7 H (80.0-100.0) fL Lymphocytes # (Manual) 0.2 L (1.0-4.8) k/uL APTT 44.3 H (22.0-30.0) sec Sodium 146 H (137-145) mmol/L Potassium 3.4 L (3.5-5.1) mmol/L BUN 57 H (9-20) mg/dL Creatinine 2.50 H (0.66-1.25) mg/dL Glucose 116 H (74-99) mg/dL POC Glucose (mg/dL) (75-99) mg/dL Calcium 7.9 L (8.4-10.2) mg/dL Phosphorus 5.8 H (2.5-4.5) mg/dL Total Protein 4.2 L (6.3-8.2) g/dL Albumin 2.1 L (3.5-5.0) g/dL Amylase <30 L (30-110) U/L Lipase 628 H (23-300) U/L 05/01/16 Range/Units 05:51 WBC (3.8-10.6) k/uL RBC (4.30-5.90) m/uL Hgb (13.0-17.5) gm/dL Hct (39.0-53.0) % MCV (80.0-100.0) fL Lymphocytes # (Manual) (1.0-4.8) k/uL APTT (22.0-30.0) sec Sodium (137-145) mmol/L Potassium (3.5-5.1) mmol/L BUN (9-20) mg/dL Creatinine (0.66-1.25) mg/dL Glucose (74-99) mg/dL POC Glucose (mg/dL) 118 H (75-99) mg/dL Calcium (8.4-10.2) mg/dL Phosphorus (2.5-4.5) mg/dL Total Protein (6.3-8.2) g/dL Albumin (3.5-5.0) g/dL Amylase (30-110) U/L Lipase (23-300) U/L Microbiology - Last 24 Hours (Table) 04/28/16 22:00 Blood Culture - Preliminary Blood No Growth after 24 hours 04/28/16 12:15 Blood Culture - Preliminary Blood No Growth after 24 hours Assessment and Plan Plan: Impression: 1. Abdominal pain, present on admission, suspect secondary to acute pancreatitis, improved. Lipase 628 from 1490 yesterday. 2. Abdominal distention suspect secondary to ileus, resolved. Plan: 1. Continue to monitor patient. Continue IV hydration. Continue supportive treatment and pain management. Continue to follow with primary service and consultants. Patient is not a surgical candidate at this time. The above impression and plan have been discussed and directed by Dr. Murry. Dayana VICENTE acting as scribe for Dr. Murry.
[2016-05-01] MEDS ORDERED: FUROSEMIDE 10 MG/ML 4 ML VIAL IV STA (11:46)
--- NOTE | 2016-05-01 11:59 | P.PN ---
Subjective Principal diagnosis: ANAI with Acute pancreatitis This is a 56-year-old gentleman who has paraplegia and multiple comorbidities. He was admitted with shortness of breath and chest discomfort. He was also found to have bilateral lower extremity DVTs and an indeterminate VQ scan. He is seen again today in follow-up. Presently he is found to be somewhat bronchospastic and wheezing. He is short of breath. His chest x-ray does reveal evidence of fluid volume overload. He is requiring 15 L of high flow nasal cannula to maintain O2 saturations in the 90s. He has a loose nonproductive cough. No chills or night sweats. Currently afebrile. Objective - Vital Signs Vital signs: Vital Signs Temp 98.0 F 05/01/16 11:37 Pulse 97 05/01/16 11:37 Resp 18 05/01/16 11:37 BP 116/63 05/01/16 11:37 Pulse Ox 95 05/01/16 11:37 Intake & Output 04/30/16 05/01/16 05/01/16 18:59 06:59 18:59 Intake Total 1274.634 600 130.816 Output Total 1999 1475 Balance -725.366 -875 130.816 Weight 110.3 kg Intake: IV 840 Heparin Sodium,Porcine/ 240 D5w Pmx 25,000 unit In Dextrose/Water 1 500ml. bag @ 18 UNITS/KG/HR 38. 52 mls/hr IV .[id number] [facility] Rx#:[id number] Sodium Chloride 0.9% 1, 600 000 ml @ 75 mls/hr IV . [id number] [facility] Rx#:[id number] Oral 100 100 Other 434.634 500 30.816 Output: Urine 1999 1475 Other: Voiding Method Indwelling Catheter Indwelling Catheter Indwelling Catheter # Bowel Movements 2 1 - Exam GENERAL EXAM: Alert, currently quite short of breath, bronchospastic, wheezing. HEAD: Normocephalic. EYES: Normal reaction of pupils, equal size. NOSE: Clear with pink turbinates. THROAT: There is some crowding the posterior pharynx. No erythema or exudates. NECK: Short. No masses, no JVD. CHEST: No chest wall deformity. LUNGS: Equal air entry with eyelid or wheezing, crackles in the posterior bases. Diminished. CVS: S1 and S2 normal with no audible murmurs, regular rhythm. ABDOMEN: Obese, tender in the upper quadrant. Bowel sounds are present. Extremities: There is 1-2+ lower extremity peripheral edema. No clubbing, no cyanosis. Peripheral pulses are intact. - Labs CBC & Chem 7: 05/01/16 05:40 05/01/16 05:40 Labs: Abnormal Lab Results - Last 24 Hours (Table) 04/30/16 04/30/16 05/01/16 Range/Units 11:53 16:51 00:02 WBC (3.8-10.6) k/uL RBC (4.30-5.90) m/uL Hgb (13.0-17.5) gm/dL Hct (39.0-53.0) % MCV (80.0-100.0) fL Lymphocytes # (Manual) (1.0-4.8) k/uL APTT (22.0-30.0) sec Sodium (137-145) mmol/L Potassium (3.5-5.1) mmol/L BUN (9-20) mg/dL Creatinine (0.66-1.25) mg/dL Glucose (74-99) mg/dL POC Glucose (mg/dL) 144 H 151 H 153 H (75-99) mg/dL Calcium (8.4-10.2) mg/dL Phosphorus (2.5-4.5) mg/dL Total Protein (6.3-8.2) g/dL Albumin (3.5-5.0) g/dL Amylase (30-110) U/L Lipase (23-300) U/L 05/01/16 05/01/16 05/01/16 Range/Units 05:40 05:40 05:40 WBC 3.6 L (3.8-10.6) k/uL RBC 2.71 L (4.30-5.90) m/uL Hgb 9.2 L (13.0-17.5) gm/dL Hct 29.8 L (39.0-53.0) % MCV 109.7 H (80.0-100.0) fL Lymphocytes # (Manual) 0.2 L (1.0-4.8) k/uL APTT 44.3 H (22.0-30.0) sec Sodium 146 H (137-145) mmol/L Potassium 3.4 L (3.5-5.1) mmol/L BUN 57 H (9-20) mg/dL Creatinine 2.50 H (0.66-1.25) mg/dL Glucose 116 H (74-99) mg/dL POC Glucose (mg/dL) (75-99) mg/dL Calcium 7.9 L (8.4-10.2) mg/dL Phosphorus 5.8 H (2.5-4.5) mg/dL Total Protein 4.2 L (6.3-8.2) g/dL Albumin 2.1 L (3.5-5.0) g/dL Amylase <30 L (30-110) U/L Lipase 628 H (23-300) U/L 05/01/16 Range/Units 05:51 WBC (3.8-10.6) k/uL RBC (4.30-5.90) m/uL Hgb (13.0-17.5) gm/dL Hct (39.0-53.0) % MCV (80.0-100.0) fL Lymphocytes # (Manual) (1.0-4.8) k/uL APTT (22.0-30.0) sec Sodium (137-145) mmol/L Potassium (3.5-5.1) mmol/L BUN (9-20) mg/dL Creatinine (0.66-1.25) mg/dL Glucose (74-99) mg/dL POC Glucose (mg/dL) 118 H (75-99) mg/dL Calcium (8.4-10.2) mg/dL Phosphorus (2.5-4.5) mg/dL Total Protein (6.3-8.2) g/dL Albumin (3.5-5.0) g/dL Amylase (30-110) U/L Lipase (23-300) U/L Microbiology - Last 24 Hours (Table) 04/28/16 22:00 Blood Culture - Preliminary Blood No Growth after 24 hours 04/28/16 12:15 Blood Culture - Preliminary Blood No Growth after 24 hours Assessment and Plan Plan: Impression: #1 Acute epigastric pain secondary to pancreatitis. #2 Acute hypoxic respiratory failure secondary to acute exacerbation of suspected diastolic congestive heart failure. #3 Acute pancreatitis. #4 Bilateral lower extremity DVT and suspected PE. #5 Paraplegia. Plan: The patient was seen and evaluated by Dr. Lopez. His chest x-ray and labs were reviewed. We'll go ahead and give Lasix 40 mg IVP 1. We'll initiate Solu- Medrol 60 mg every 6 hours. He'll be given a DuoNeb inhalation. We'll continue to monitor him closely here on the selective care unit. We'll continue to follow make further recommendations based on his clinical status.
[2016-05-01 12:01] LABS: Glucose,Whole Blood 113 mg/dL (75-99)
[2016-05-01] MEDS: ERGOCALCIFEROL 50,000 UNIT CAP PO SCH (12:48)
[2016-05-01] MEDS: FOLIC ACID 1 MG TAB PO SCH (12:48)
[2016-05-01] MEDS: methylPREDNISolone SOD SUCCI 125 MG/2 ML VIAL IV SCH ×3 (12:48→23:48)
--- NOTE | 2016-05-01 15:33 | P.PN ---
Subjective Principal diagnosis: ANAI with Acute pancreatitis Date of service 05/01/2016. Progress note being dictated for Dr. Munoz. Interval history: This 56-year-old gentleman admitted with acute pancreatitis, possibly early sepsis, bilateral DVT and multiple other medical issues. Improving; amylase, lipase resolving, renal function improving. Tolerating clear liquid diet with no nausea or vomiting. Positive bowel movements. Weaned off of partial rebreather and now on 15 L high flow nasal cannula. Earlier today RBC and complains of increased shortness of breath, evaluated by pulmonary and received a single dose of Lasix IV push with initiation of IV steroids. States breathing improving. Hypokalemic, potassium 3.4. Case management received approval/authorization for Xarelto. Denies chest pain or palpitations. Objective - Vital Signs Vital signs: Vital Signs Temp 98.0 F 05/01/16 11:37 Pulse 97 05/01/16 11:37 Resp 18 05/01/16 11:37 BP 116/63 05/01/16 11:37 Pulse Ox 95 05/01/16 11:37 Intake & Output 04/30/16 05/01/16 05/01/16 18:59 06:59 18:59 Intake Total 1274.634 600 130.816 Output Total 1999 1475 Balance -725.366 -875 130.816 Weight 110.3 kg 110.3 kg Intake: IV 840 Heparin Sodium,Porcine/ 240 D5w Pmx 25,000 unit In Dextrose/Water 1 500ml. bag @ 18 UNITS/KG/HR 38. 52 mls/hr IV .[id number] [facility] Rx#:[id number] Sodium Chloride 0.9% 1, 600 000 ml @ 75 mls/hr IV . [id number] [facility] Rx#:[id number] Oral 100 100 Other 434.634 500 30.816 Output: Urine 1999 1475 Other: Voiding Method Indwelling Catheter Indwelling Catheter Indwelling Catheter # Bowel Movements 2 1 - Exam PHYSICAL EXAM: VITAL SIGNS: As above GENERAL: [Sitting up in chair, respiratory effort increased] HEENT: [Pupils equal conjunctiva normal.] NECK: [Supple, no JVD] RESPIRATORY EFFORT:[Increased] LUNGS: [Diminished, CARDIOVASCULAR[regular S1 and S2, GI: [Abdomen soft, nontender, positive bowel sounds.] PSYCH: [Alert and oriented -2, mood and affect normal.] SKIN: Stage II mid-coccyx, dressing clean dry and intact NEURO: [Paraplegic, higher functions as mentioned earlier] - Labs CBC & Chem 7: 05/01/16 05:40 05/01/16 05:40 Labs: Abnormal Lab Results - Last 24 Hours (Table) 04/30/16 05/01/16 05/01/16 Range/Units 16:51 00:02 05:40 WBC 3.6 L (3.8-10.6) k/uL RBC 2.71 L (4.30-5.90) m/uL Hgb 9.2 L (13.0-17.5) gm/dL Hct 29.8 L (39.0-53.0) % MCV 109.7 H (80.0-100.0) fL Lymphocytes # (Manual) 0.2 L (1.0-4.8) k/uL APTT (22.0-30.0) sec Sodium (137-145) mmol/L Potassium (3.5-5.1) mmol/L BUN (9-20) mg/dL Creatinine (0.66-1.25) mg/dL Glucose (74-99) mg/dL POC Glucose (mg/dL) 151 H 153 H (75-99) mg/dL Calcium (8.4-10.2) mg/dL Phosphorus (2.5-4.5) mg/dL Total Protein (6.3-8.2) g/dL Albumin (3.5-5.0) g/dL Amylase (30-110) U/L Lipase (23-300) U/L 05/01/16 05/01/16 05/01/16 Range/Units 05:40 05:40 05:51 WBC (3.8-10.6) k/uL RBC (4.30-5.90) m/uL Hgb (13.0-17.5) gm/dL Hct (39.0-53.0) % MCV (80.0-100.0) fL Lymphocytes # (Manual) (1.0-4.8) k/uL APTT 44.3 H (22.0-30.0) sec Sodium 146 H (137-145) mmol/L Potassium 3.4 L (3.5-5.1) mmol/L BUN 57 H (9-20) mg/dL Creatinine 2.50 H (0.66-1.25) mg/dL Glucose 116 H (74-99) mg/dL POC Glucose (mg/dL) 118 H (75-99) mg/dL Calcium 7.9 L (8.4-10.2) mg/dL Phosphorus 5.8 H (2.5-4.5) mg/dL Total Protein 4.2 L (6.3-8.2) g/dL Albumin 2.1 L (3.5-5.0) g/dL Amylase <30 L (30-110) U/L Lipase 628 H (23-300) U/L 05/01/16 05/01/16 Range/Units 11:32 14:08 WBC (3.8-10.6) k/uL RBC (4.30-5.90) m/uL Hgb (13.0-17.5) gm/dL Hct (39.0-53.0) % MCV (80.0-100.0) fL Lymphocytes # (Manual) (1.0-4.8) k/uL APTT 67.9 H (22.0-30.0) sec Sodium (137-145) mmol/L Potassium (3.5-5.1) mmol/L BUN (9-20) mg/dL Creatinine (0.66-1.25) mg/dL Glucose (74-99) mg/dL POC Glucose (mg/dL) 113 H (75-99) mg/dL Calcium (8.4-10.2) mg/dL Phosphorus (2.5-4.5) mg/dL Total Protein (6.3-8.2) g/dL Albumin (3.5-5.0) g/dL Amylase (30-110) U/L Lipase (23-300) U/L Microbiology - Last 24 Hours (Table) 04/28/16 22:00 Blood Culture - Preliminary Blood No Growth after 48 hours 04/28/16 12:15 Blood Culture - Preliminary Blood No Growth after 48 hours Assessment and Plan Plan: 1. Abdominal pain with acute pancreatitis, with possible sepsis. 2. Hyperlipidemia with increased triglycerides. 3. Bilateral lower DVTs. 4. Hypoalbuminemia with mild to moderate protein calorie malnutrition. 5. Increased plasma lactic acid. 6. Acute on chronic renal failure, stage III secondary to acute tubular necrosis multifactorial with prerenal factors. 7. Hyperkalemia secondary to acute tubular necrosis. 8. Leukocytosis secondary to possibly sepsis 9. Obesity, BMI 38.4 10. CAD 11. History of CHF, EF currently unknown 12. History of CVA, TIA 13. 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 Diabetes mellitus type 2 15. Gastroesophageal reflux disease 15. Essential hypertension 16. Hyperlipidemia 17. Degenerative joint disease 18. Seizure disorder 19. Peripheral vascular disease 20. Bilateral atelectasis 21. History of sacral decubitus, currently with stage II pressure ulcer, mid- coccyx 22. Heparin monitoring 23. Bilateral pleural effusions, increasing left pleural effusion per chest x- ray 24. Hypernatremia secondary to free water intake deficit 25. Hypokalemia Plan: Continue on current medication regime, empiric antibiotics, nebulized bronchodilators, monitoring and symptomatic treatment. Potassium replacement protocol. Wound care as per ID. [employer] coverage approval verified by case management. close monitoring of electrolytes and renal function with repeat labs ordered for a.m. Prognosis guarded given multiple complex medical issues. The impression and plan of care has been dictated as directed. : I performed a H&P examination of this patient and discussed the same with the dictator. I agree with the dictator's note. Any additional findings/opinions/ etc. will be noted.
--- NOTE | 2016-05-01 16:48 | PN ---
DATE OF SERVICE: 05/01/2016 This 56-year-old gentleman admitted with pancreatitis and multiple other medical problems also had DVT, is being closely monitored. Seen and evaluated the patient along with the nurse practitioner. Please refer to the nurse practitioner notes and impression documented for further information. Prognosis guarded. I would transition to Xarelto if there is adequate insurance coverage. Guarded prognosis. Further recommendations to follow.
[2016-05-01 16:53] LABS: Glucose,Whole Blood 198 mg/dL (75-99)
[2016-05-01] MEDS: FERROUS SULFATE 325 MG TAB PO SCH (16:59)
--- NOTE | 2016-05-01 18:22 | P.PN ---
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 Patient is known to ID service as he was seen in May 2015 at which time he was treated for cellulitis of the right lower extremity. At that time he underwent duplex study that was negative for DVT, x-ray that showed potential for abscess and CAT scan of the lower extremity was done that failed to reveal an abscess and was negative for osteomyelitis. He was treated with local wound care with Silvadene and he was discharged on oral Bactrim. Patient currently resides at [facility]. He states he had a sudden onset of chest pain on the left side while he was watching TV. It was sharp with a 5 out of 10 with mild shortness of breath. Patient was transferred to [facility] where he received 4 baby aspirin and 3 nitroglycerin that did not change his pain. His d -dimer was slightly elevated at 0.73. BUN was 26 and creatinine 1.8. It appears patient's baseline creatinine is 1.5-1.7. He was afebrile. Troponin was 0.017. He was given 1 L of IV fluids and there was concern for pulmonary embolism and patient was transferred to [facility] for VQ scan. Patient was admitted to the selective care unit. Unfortunately he was unable to complete the VQ scan. However, venous Dopplers of the bilateral lower extremities were positive on both sides. He underwent a chest x-ray that showed left lower lobe atelectasis or infiltrate and cardiomegaly. CAT scan of the abdomen and pelvis revealed acute pancreatitis. He subsequently underwent x -ray films that showed possible obstruction or ileus. Patient's last bowel movement was apparently 2 days ago. Repeat lab work showed leukocytosis of 16.4 , lactic acid 2.4 and BUN 43 with creatinine 3.5. Albumin 3.2. Potassium was 6.06 and he is status post Kayexalate. His heart rate has been running 120-130 since admission. He has the following consultations in place cardiology, pulmonary medicine, nephrology, surgery. Amylase was 632 and lipase 13,509. Patient continues to have left upper quadrant lower rib pain. He does complain of nausea without vomiting. He denies any diarrhea. He denies any cough or sputum reduction. He states he has shortness of breath all the time and he normally has rapid respirations per the patient area he denies any problems with his legs that he is aware of. He is incontinent of urine. Seems to be slightly improved today. More awake and alert. Knows that he is Ruchi Marin. Was able to state my name. Abdominal pains improved." Bowel movements occurred. Now some diarrhea. We'll monitor for the possibility of C. diff. Objective - Vital Signs Vital signs: Vital Signs Temp 97.9 F 05/01/16 16:00 Pulse 88 05/01/16 16:15 Resp 18 05/01/16 16:00 BP 118/69 05/01/16 16:00 Pulse Ox 97 05/01/16 16:00 Intake & Output 04/30/16 05/01/16 05/01/16 18:59 06:59 18:59 Intake Total 1274.909 665 9153.709 Output Total 1999 1475 750 Balance -725.366 -875 791.709 Weight 110.3 kg 110.3 kg Intake: IV 840 920 Heparin Sodium,Porcine/ 240 320 D5w Pmx 25,000 unit In Dextrose/Water 1 500ml. bag @ 18 UNITS/KG/HR 38. 52 mls/hr IV .[id number] LUIS MANUEL Rx#:[id number] Sodium Chloride 0.45% 1, 500 000 ml @ 100 mls/hr IV . Q10H LUIS MANUEL Rx#:[id number] Sodium Chloride 0.9% 1, 600 000 ml @ 75 mls/hr IV . [id number] LUIS MANUEL Rx#:[id number] cefTRIAXone 2,000 mg In 100 Sodium Chloride 0.9% 100 ml @ 100 mls/hr IVPB Q24HR LUIS MANUEL Rx#:[id number] Oral 100 190 Other 434.634 500 431.709 Output: Urine 1999 1475 750 Other: Voiding Method Indwelling Catheter Indwelling Catheter Indwelling Catheter # Bowel Movements 2 1 - Exam Gen: This is a obese 56-year-old male. He is laying in bed and noted to have rapid respirations but is able to speak in sentences HEENT: Head is atraumatic, normocephalic. Pupils equal, round. Sclerae is anicteric. Conjunctiva pink. Mucous membranes of the mouth are moist. No thrush noted. NECK: Supple. No JVD. No lymphadenopathy. No thyromegaly. LUNGS: Clear to auscultation. No wheezes or rhonchi. No intercostal retractions. HEART: Regular rate and rhythm. No murmur. ABDOMEN: Slightly distended. Bowel sounds are present. Generalized tenderness to the entire abdomen less tender to the left upper quadrant today. EXTREMITIES: Trace bilateral pedal edema. No erythema or wounds noted to the bilateral lower extremities NEUROLOGICAL: Patient is awake, alert - Labs CBC & Chem 7: 05/01/16 05:40 05/01/16 05:40 Labs: Abnormal Lab Results - Last 24 Hours (Table) 05/01/16 05/01/16 05/01/16 Range/Units 00:02 05:40 05:40 WBC 3.6 L (3.8-10.6) k/uL RBC 2.71 L (4.30-5.90) m/uL Hgb 9.2 L (13.0-17.5) gm/dL Hct 29.8 L (39.0-53.0) % MCV 109.7 H (80.0-100.0) fL Lymphocytes # (Manual) 0.2 L (1.0-4.8) k/uL APTT (22.0-30.0) sec Sodium 146 H (137-145) mmol/L Potassium 3.4 L (3.5-5.1) mmol/L BUN 57 H (9-20) mg/dL Creatinine 2.50 H (0.66-1.25) mg/dL Glucose 116 H (74-99) mg/dL POC Glucose (mg/dL) 153 H (75-99) mg/dL Calcium 7.9 L (8.4-10.2) mg/dL Phosphorus 5.8 H (2.5-4.5) mg/dL Total Protein 4.2 L (6.3-8.2) g/dL Albumin 2.1 L (3.5-5.0) g/dL Amylase <30 L (30-110) U/L Lipase 628 H (23-300) U/L 05/01/16 05/01/16 05/01/16 Range/Units 05:40 05:51 11:32 WBC (3.8-10.6) k/uL RBC (4.30-5.90) m/uL Hgb (13.0-17.5) gm/dL Hct (39.0-53.0) % MCV (80.0-100.0) fL Lymphocytes # (Manual) (1.0-4.8) k/uL APTT 44.3 H (22.0-30.0) sec Sodium (137-145) mmol/L Potassium (3.5-5.1) mmol/L BUN (9-20) mg/dL Creatinine (0.66-1.25) mg/dL Glucose (74-99) mg/dL POC Glucose (mg/dL) 118 H 113 H (75-99) mg/dL Calcium (8.4-10.2) mg/dL Phosphorus (2.5-4.5) mg/dL Total Protein (6.3-8.2) g/dL Albumin (3.5-5.0) g/dL Amylase (30-110) U/L Lipase (23-300) U/L 05/01/16 05/01/16 Range/Units 14:08 16:50 WBC (3.8-10.6) k/uL RBC (4.30-5.90) m/uL Hgb (13.0-17.5) gm/dL Hct (39.0-53.0) % MCV (80.0-100.0) fL Lymphocytes # (Manual) (1.0-4.8) k/uL APTT 67.9 H (22.0-30.0) sec Sodium (137-145) mmol/L Potassium (3.5-5.1) mmol/L BUN (9-20) mg/dL Creatinine (0.66-1.25) mg/dL Glucose (74-99) mg/dL POC Glucose (mg/dL) 198 H (75-99) mg/dL Calcium (8.4-10.2) mg/dL Phosphorus (2.5-4.5) mg/dL Total Protein (6.3-8.2) g/dL Albumin (3.5-5.0) g/dL Amylase (30-110) U/L Lipase (23-300) U/L Microbiology - Last 24 Hours (Table) 04/28/16 22:00 Blood Culture - Preliminary Blood No Growth after 48 hours 04/28/16 12:15 Blood Culture - Preliminary Blood No Growth after 48 hours Laboratory Results WBC 3.6 k/uL (3.8-10.6) L 05/01/16 05:40 RBC 2.71 m/uL (4.30-5.90) L 05/01/16 05:40 Hgb 9.2 gm/dL (13.0-17.5) L 05/01/16 05:40 Hct 29.8 % (39.0-53.0) L 05/01/16 05:40 MCV 109.7 fL (80.0-100.0) H 05/01/16 05:40 MCH 34.0 pg (25.0-35.0) 05/01/16 05:40 MCHC 31.0 g/dL (31.0-37.0) 05/01/16 05:40 RDW 14.9 % (11.5-15.5) 05/01/16 05:40 Plt Count 183 k/uL (150-450) 05/01/16 05:40 Neutrophils % 85 % 04/27/16 10:33 Neutrophils % (Manual) 66.5 % 05/01/16 05:40 Band Neutrophils % 22.0 % 05/01/16 05:40 Lymphocytes % 6 % 04/27/16 10:33 Lymphocytes % (Manual) 5.0 % 05/01/16 05:40 Monocytes % 7 % 04/27/16 10:33 Monocytes % (Manual) 6.0 % 05/01/16 05:40 Eosinophils % 1 % 04/27/16 10:33 Eosinophils % (Manual) 0.5 % 05/01/16 05:40 Basophils % 0 % 04/27/16 10:33 Metamyelocytes % 5.0 % 04/29/16 05:42 Myelocytes % 0.5 % 04/30/16 05:38 Neutrophils # 8.6 k/uL (1.3-7.7) H 04/27/16 10:33 Neutrophils # (Manual) 3.2 k/uL (1.3-7.7) 05/01/16 05:40 Lymphocytes # 0.6 k/uL (1.0-4.8) L 04/27/16 10:33 Lymphocytes # (Manual) 0.2 k/uL (1.0-4.8) L 05/01/16 05:40 Monocytes # 0.7 k/uL (0-1.0) 04/27/16 10:33 Monocytes # (Manual) 0.2 k/uL (0-1.0) 05/01/16 05:40 Eosinophils # 0.1 k/uL (0-0.7) 04/27/16 10:33 Eosinophils # (Manual) 0.0 k/uL (0-0.7) 05/01/16 05:40 Basophils # 0.0 k/uL (0-0.2) 04/27/16 10:33 Nucleated RBCs 0 /100 WBC (0-0) 05/01/16 05:40 Manual Slide Review Performed 04/30/16 05:38 Toxic Granulation Present 04/29/16 05:42 Toxic Vacuolation Present 04/29/16 05:42 Polychromasia Present 04/29/16 05:42 Hypochromasia Slight 05/01/16 05:40 Poikilocytosis (manual Present 05/01/16 05:40 Anisocytosis (manual) Present 05/01/16 05:40 Macrocytosis Marked 05/01/16 05:40 PT 12.6 sec (9.0-12.0) H 04/28/16 15:00 INR 1.3 (<1.1) 04/28/16 15:00 APTT 67.9 sec (22.0-30.0) H 05/01/16 14:08 D-Dimer 2.06 mg/L FEU (<0.60) H 04/27/16 10:33 Sodium 146 mmol/L (137-145) H 05/01/16 05:40 Potassium 3.4 mmol/L (3.5-5.1) L 05/01/16 05:40 Chloride 106 mmol/L (98-107) 05/01/16 05:40 Carbon Dioxide 28 mmol/L (22-30) 05/01/16 05:40 Anion Gap 12 mmol/L 05/01/16 05:40 BUN 57 mg/dL (9-20) H 05/01/16 05:40 Creatinine 2.50 mg/dL (0.66-1.25) H 05/01/16 05:40 Est GFR (MDRD) Af Amer 32 (>60 ml/min/1.73 sqM) 05/01/16 05:40 Est GFR (MDRD) Non-Af 27 (>60 ml/min/1.73 sqM) 05/01/16 05:40 Glucose 116 mg/dL (74-99) H 05/01/16 05:40 POC Glucose (mg/dL) 198 mg/dL (75-99) H 05/01/16 16:50 POC Glu [employer] Nicol Kate 05/01/16 16:[address] Glu mg/dL 151 mg/dL 04/28/16 10:44 Hemoglobin A1c 6.9 % (4.2-6.1) H 04/28/16 10:44 Plasma Lactic Acid [place] 2.1 mmol/L (0.7-2.0) H 04/28/16 15:00 Calcium 7.9 mg/dL (8.4-10.2) L 05/01/16 05:40 Phosphorus 5.8 mg/dL (2.5-4.5) H 05/01/16 05:40 Magnesium 2.0 mg/dL (1.6-2.3) 05/01/16 05:40 Total Bilirubin 0.6 mg/dL (0.2-1.3) 05/01/16 05:40 AST 37 U/L (17-59) 05/01/16 05:40 ALT 33 U/L (21-72) 05/01/16 05:40 Alkaline Phosphatase 48 U/L (38-126) 05/01/16 05:40 Total Creatine Kinase 64 U/L (55-170) 04/27/16 16:08 CK-MB (CK-2) 0.5 ng/mL (0.0-2.4) 04/27/16 16:08 CK-MB (CK-2) Rel Index 0.8 04/27/16 16:08 Troponin I <0.012 ng/mL (0.000-0.034) 04/27/16 16:08 NT-Pro-B Natriuret Pep 1810 pg/mL 04/28/16 06:08 Total Protein 4.2 g/dL (6.3-8.2) L 05/01/16 05:40 Albumin 2.1 g/dL (3.5-5.0) L 05/01/16 05:40 Triglycerides 235 mg/dL (<150) H 04/28/16 06:08 Cholesterol 120 mg/dL (<200) 04/28/16 06:08 LDL Cholesterol, Calc 46 mg/dL (0-99) 04/28/16 06:08 HDL Cholesterol 27 mg/dL (40-60) L 04/28/16 06:08 Amylase <30 U/L (30-110) L 05/01/16 05:40 Lipase 628 U/L (23-300) H 05/01/16 05:40 Urine Color Yellow 04/28/16 18:40 Urine Appearance Cloudy (Clear) 04/28/16 18:40 Urine pH 5.5 (5.0-8.0) 04/28/16 18:40 Ur Specific [place] 1.018 (1.001-1.035) 04/28/16 18:40 Urine Protein 2+ (Negative) H 04/28/16 18:40 Urine Glucose (UA) Trace (Negative) H 04/28/16 18:40 Urine Ketones Trace (Negative) H 04/28/16 18:40 Urine Blood Negative (Negative) 04/28/16 18:40 Urine Nitrate Negative (Negative) 04/28/16 18:40 Urine Bilirubin Negative (Negative) 04/28/16 18:40 Urine Urobilinogen <2.0 mg/dL (<2.0) 04/28/16 18:40 Ur Leukocyte Esterase Small (Negative) H 04/28/16 18:40 Urine WBC 26 /hpf (0-5) H 04/28/16 18:40 Amorphous Sediment Occasional /hpf (None) H 04/28/16 18:40 Hyaline Casts 22 /lpf (0-2) H 04/28/16 18:40 Granular Casts 19 /lpf (0) 04/28/16 18:40 Urine Mucus Rare /hpf (None) H 04/28/16 18:40 Hepatitis A IgM Ab NEGATIVE 04/28/16 21:50 Hep Bs Antigen Negative 04/28/16 21:50 Hep B Core IgM Ab NEGATIVE 04/28/16 21:50 Hep C IgG Ab Negative (Negative) 04/28/16 21:50 Microbiology 04/28/16 22:00 Blood Blood Culture - Preliminary No Growth after 48 hours 04/28/16 12:15 Blood Blood Culture - Preliminary No Growth after 48 hours 04/28/16 18:40 Urine,Catheterized Urine Culture - Final Assessment and Plan (1) Pancreatitis Narrative/Plan: 56-year-old male [facility] to [facility] abdominal pain. Evidence of phillip pancreatitis. Also had lower extremity edema without evidence of bilateral lower extremities deep venous thrombosis and likely pulmonary in this. Currently being treated with an heparin drip has been seen by hematology. No evidence of any significant sepsis at this time. Antibiotic therapy was tailored to ceftriaxone. The cultures remain negative we'll continue to monitor we'll discontinue Rocephin. Leukocytosis is improving now at 9.5, and like in the bases of his extensive pancreatitis. Status: Acute (2) Deep venous thrombosis Status: Acute (3) Leukocytosis Status: Acute
--- NOTE | 2016-05-01 18:29 | PN ---
DATE OF SERVICE: 05/01/2016 Patient is a 56-year-old pleasant white male admitted to the hospital with severe acute pancreatitis. He is gradually improving. His NG is out. He was on a clear liquid diet yesterday, tolerating well. He says his abdominal pain is much better today. He denies any nausea, vomiting. He had about 4 bowel movements daily which were all loose, but not watery. No bleeding. He reports no fever, chills, night sweats. On physical examination, vital signs are stable. Blood pressure is 138/63, pulse rate 113. HEENT: Unremarkable. Conjunctivae pink. Sclerae anicteric. Oral cavity, no lesions. NECK: No JVD or lymph node enlargement. Chest was clear to auscultation. HEART: Regular rate and rhythm. Abdomen is still distended. There was mild tenderness in the epigastric area. Bowel sounds are positive. No organomegaly. EXTREMITIES: No pedal edema. SKIN: No rashes. NEURO: He is alert and oriented x3. No focal deficits. LABS: WBC 3.6, hemoglobin 9.2, platelets are normal. Amylase is 30 and lipase is 623. ALT, AST, T-bili and alk phos are within normal limits. IMPRESSION: 1. Acute severe pancreatitis, gradually improving, presently on broad-spectrum antibiotics and Dr. Kam following the patient closely. 2. Bilateral deep venous thrombosis with ( ) on IV heparin. RECOMMENDATIONS: 1. Today will continue him on a clear liquid diet and if his symptoms improve and abdominal pain continues to get better, will advance to full liquid diet tomorrow. 2. Continue with symptomatic and supportive care. 3. Continue with broad-spectrum antibiotics and will follow the patient closely during his hospital stay. Thank you for this consultation.
[2016-05-01 18:45] LABS: ABG PCO2 40 mmHg (35-45); ABG PH 7.37 (7.35-7.45); ABG PO2 87 mmHg (83-108)
[2016-05-01 18:46] LABS: ABG Base Excess -1.7 mmol/L; ABG HCO3 23 mmol/L (21-25); ABG Oxygen Saturation 96.4 % (94-97); ABG TCO2 24 mmol/L (19-24)
[2016-05-01] MEDS: FENOFIBRATE 160 MG TAB PO SCH (20:06)
[2016-05-01] MEDS: ATORVASTATIN 10 MG TAB PO SCH (20:06)
[2016-05-01] MEDS: INSULIN GLARGINE 100 UNIT/ML 10 ML VIAL SQ SCH (23:48)
[2016-05-01 23:49] LABS: Glucose,Whole Blood 215 mg/dL (75-99)
[2016-05-02 01:32] LABS: Glucose,Whole Blood 193 mg/dL (75-99)
[2016-05-02] MEDS: HEPARIN SODIUM,PORCINE/D5W PMX 25,000 UNIT in DEXTROSE/WATER 1 500ML.BAG IV SCH (01:58)
[2016-05-02] MEDS: SODIUM CHLORIDE 0.45% 1,000 ML IV SCH ×2 (01:58→15:55)
[2016-05-02 06:05] LABS: Glucose,Whole Blood 169 mg/dL (75-99)
[2016-05-02] MEDS: INSULIN LISPRO (humaLOG) 300 UNIT/3 ML VIAL SQ SCH ×4 (06:28→21:20)
[2016-05-02] MEDS: PANTOPRAZOLE 40 MG TABLET PO SCH (06:29)
[2016-05-02] MEDS: CARVEDILOL 12.5 MG TAB PO SCH ×2 (06:29→17:18)
[2016-05-02] MEDS: DIVALPROEX 500 MG TABLET.DR PO SCH ×2 (06:29→15:56)
[2016-05-02] MEDS: methylPREDNISolone SOD SUCCI 125 MG/2 ML VIAL IV SCH ×3 (06:30→17:18)
[2016-05-02 07:34] LABS: ALT 33 U/L (21-72); AST 28 U/L (17-59); Alkaline Phosphatase 46 U/L (38-126); Amylase <30 U/L (30-110); Anion Gap 12 mmol/L; Blood Urea Nitrogen 58 mg/dL (9-20); Calcium 8.4 mg/dL (8.4-10.2); Carbon Dioxide 27 mmol/L (22-30); Chloride 107 mmol/L (98-107); Glucose 179 mg/dL (74-99); Non-African American GFR(MDRD) 28 (>60 ml/min/1.73 sqM); Potassium 3.4 mmol/L (3.5-5.1); Sodium 146 mmol/L (137-145); Total Bilirubin 0.5 mg/dL (0.2-1.3); Total Protein 4.6 g/dL (6.3-8.2)
[2016-05-02] MEDS: ALBUTEROL NEBULIZED 2.5 MG/3 ML INHALATION SCH ×2 (08:35→11:59)
[2016-05-02] MEDS: amLODIPine 5 MG TAB PO SCH (08:50)
[2016-05-02] MEDS: levETIRAcetam 500 MG TAB PO SCH ×2 (08:50→15:56)
[2016-05-02] MEDS: ALLOPURINOL 100 MG TAB PO SCH (08:50)
[2016-05-02] MEDS: ASPIRIN 325 MG TAB PO SCH (08:50)
[2016-05-02] MEDS: CALCIUM CARB-VIT D 500MG-200UN 1 EACH TAB PO SCH (08:50)
[2016-05-02] MEDS: VENLAFAXINE HCL ER 150 MG CAP PO SCH (08:50)
[2016-05-02] MEDS ORDERED: POTASSIUM CHLORIDE ER 20 MEQ TAB.ER PO STA (10:21)
--- NOTE | 2016-05-02 10:43 | P.PN ---
Subjective Principal diagnosis: ANAI with Acute pancreatitis This is a 56-year-old gentleman who has paraplegia and multiple comorbidities. He was admitted with shortness of breath and chest discomfort. He was also found to have bilateral lower extremity DVTs and an indeterminate VQ scan for suspected pulmonary embolism. He is seen again today in follow-up. Yesterday he was found to be somewhat bronchospastic and wheezing. He was short of breath. His chest x-ray does reveal evidence of fluid volume overload. He is requiring 15 L of high flow nasal cannula to maintain O2 saturations in the 90s. He was treated with diuretics and IV Solu-Medrol. Arterial blood gases reveal a P O2 of 87 pCO2 40 pH 7.37 on 80% FiO2. He has a loose nonproductive cough. No chills or night sweats. Currently afebrile. Objective - Vital Signs Vital signs: Vital Signs Temp 98.8 F 05/02/16 08:00 Pulse 76 05/02/16 08:50 Resp 20 05/02/16 08:00 BP 129/70 05/02/16 08:00 Pulse Ox 99 05/02/16 08:00 Intake & Output 05/01/16 05/02/16 05/02/16 18:59 06:59 18:59 Intake Total 1541.709 485.913 226.127 Output Total 750 1350 Balance 791.709 -864.087 226.127 Weight 110.3 kg 111.3 kg Intake: IV 920 Heparin Sodium,Porcine/ 320 D5w Pmx 25,000 unit In Dextrose/Water 1 500ml. bag @ 18 UNITS/KG/HR 38. 52 mls/hr IV .[id number] LUIS MANUEL Rx#:[id number] Sodium Chloride 0.45% 1, 500 000 ml @ 100 mls/hr IV . Q10H LUIS MANUEL Rx#:[id number] cefTRIAXone 2,000 mg In 100 Sodium Chloride 0.9% 100 ml @ 100 mls/hr IVPB Q24HR LUIS MANUEL Rx#:[id number] Oral 190 100 Other 431.709 385.913 226.127 Output: Urine 750 1350 Other: Voiding Method Indwelling Catheter Indwelling Catheter Indwelling Catheter # Voids 1 # Bowel Movements 1 - Exam GENERAL EXAM: Alert, fairly comfortable at rest. HEAD: Normocephalic. EYES: Normal reaction of pupils, equal size. NOSE: Clear with pink turbinates. THROAT: There is some crowding the posterior pharynx. No erythema or exudates. NECK: Short. No masses, no JVD. CHEST: No chest wall deformity. LUNGS: Equal air entry with bilateral wheezing, crackles in the posterior bases. Diminished. CVS: S1 and S2 normal with no audible murmurs, regular rhythm. ABDOMEN: Obese, tender in the upper quadrant. Bowel sounds are present. Extremities: There is 1-2+ lower extremity peripheral edema. No clubbing, no cyanosis. Peripheral pulses are intact. - Labs CBC & Chem 7: 05/01/16 05:40 05/02/16 05:57 Labs: Abnormal Lab Results - Last 24 Hours (Table) 05/01/16 05/01/16 05/01/16 Range/Units 11:32 14:08 16:50 APTT 67.9 H (22.0-30.0) sec Sodium (137-145) mmol/L Potassium (3.5-5.1) mmol/L BUN (9-20) mg/dL Creatinine (0.66-1.25) mg/dL Glucose (74-99) mg/dL POC Glucose (mg/dL) 113 H 198 H (75-99) mg/dL Total Protein (6.3-8.2) g/dL Albumin (3.5-5.0) g/dL Amylase (30-110) U/L Lipase (23-300) U/L 05/01/16 05/02/16 05/02/16 Range/Units 23:47 01:22 05:57 APTT (22.0-30.0) sec Sodium 146 H (137-145) mmol/L Potassium 3.4 L (3.5-5.1) mmol/L BUN 58 H (9-20) mg/dL Creatinine 2.37 H (0.66-1.25) mg/dL Glucose 179 H (74-99) mg/dL POC Glucose (mg/dL) 215 H 193 H (75-99) mg/dL Total Protein 4.6 L (6.3-8.2) g/dL Albumin 2.2 L (3.5-5.0) g/dL Amylase <30 L (30-110) U/L Lipase 368 H (23-300) U/L 05/02/16 05/02/16 Range/Units 05:59 06:00 APTT 106.7 H* (22.0-30.0) sec Sodium (137-145) mmol/L Potassium (3.5-5.1) mmol/L BUN (9-20) mg/dL Creatinine (0.66-1.25) mg/dL Glucose (74-99) mg/dL POC Glucose (mg/dL) 169 H (75-99) mg/dL Total Protein (6.3-8.2) g/dL Albumin (3.5-5.0) g/dL Amylase (30-110) U/L Lipase (23-300) U/L Microbiology - Last 24 Hours (Table) 04/28/16 22:00 Blood Culture - Preliminary Blood No Growth after 48 hours 04/28/16 12:15 Blood Culture - Preliminary Blood No Growth after 48 hours Assessment and Plan Plan: Impression: #1 Acute epigastric pain secondary to pancreatitis. #2 Acute hypoxic respiratory failure secondary to acute exacerbation of suspected diastolic congestive heart failure. #3 Acute pancreatitis. #4 Bilateral lower extremity DVT and suspected PE. #5 Paraplegia. Plan: The patient was seen and evaluated by Dr. Lopez. We will repeat his chest x- ray today. We will initiate BiPAP at the bedside. Settings of 10 over 5 and titrate his FiO2 to maintain O2 saturations greater than 90%. We'll continue to monitor him closely here on the selective care unit. We'll continue to follow and make further recommendations based on his clinical status.
--- NOTE | 2016-05-02 10:47 | P.PN ---
Subjective Principal diagnosis: ANAI with Acute pancreatitis Is my first time seeing this patient. He is unable to provide any significant history. Per the nursing staff is level of alertness fluctuates. His abdominal pain had been improving. Lipase is down to 368. Currently on full liquid diet. Patient appears very sleepy at this time. Objective - Vital Signs Vital signs: Vital Signs Temp 98.8 F 05/02/16 08:00 Pulse 76 05/02/16 08:50 Resp 20 05/02/16 08:00 BP 129/70 05/02/16 08:00 Pulse Ox 99 05/02/16 08:00 Intake & Output 05/01/16 05/02/16 05/02/16 18:59 06:59 18:59 Intake Total 1541.709 485.913 226.127 Output Total 750 1350 Balance 791.709 -864.087 226.127 Weight 110.3 kg 111.3 kg Intake: IV 920 Heparin Sodium,Porcine/ 320 D5w Pmx 25,000 unit In Dextrose/Water 1 500ml. bag @ 18 UNITS/KG/HR 38. 52 mls/hr IV .[id number] LUIS MANUEL Rx#:[id number] Sodium Chloride 0.45% 1, 500 000 ml @ 100 mls/hr IV . Q10H LUIS MANUEL Rx#:[id number] cefTRIAXone 2,000 mg In 100 Sodium Chloride 0.9% 100 ml @ 100 mls/hr IVPB Q24HR LUIS MANUEL Rx#:[id number] Oral 190 100 Other 431.709 385.913 226.127 Output: Urine 750 1350 Other: Voiding Method Indwelling Catheter Indwelling Catheter Indwelling Catheter # Voids 1 # Bowel Movements 1 - Exam Abdomen: Soft, no appreciable tenderness, umbilical hernia and upper midline hernia noted, previous PEG tube scars noted - Labs CBC & Chem 7: 05/01/16 05:40 05/02/16 05:57 Labs: Abnormal Lab Results - Last 24 Hours (Table) 05/01/16 05/01/16 05/01/16 Range/Units 11:32 14:08 16:50 APTT 67.9 H (22.0-30.0) sec Sodium (137-145) mmol/L Potassium (3.5-5.1) mmol/L BUN (9-20) mg/dL Creatinine (0.66-1.25) mg/dL Glucose (74-99) mg/dL POC Glucose (mg/dL) 113 H 198 H (75-99) mg/dL Total Protein (6.3-8.2) g/dL Albumin (3.5-5.0) g/dL Amylase (30-110) U/L Lipase (23-300) U/L 05/01/16 05/02/16 05/02/16 Range/Units 23:47 01:22 05:57 APTT (22.0-30.0) sec Sodium 146 H (137-145) mmol/L Potassium 3.4 L (3.5-5.1) mmol/L BUN 58 H (9-20) mg/dL Creatinine 2.37 H (0.66-1.25) mg/dL Glucose 179 H (74-99) mg/dL POC Glucose (mg/dL) 215 H 193 H (75-99) mg/dL Total Protein 4.6 L (6.3-8.2) g/dL Albumin 2.2 L (3.5-5.0) g/dL Amylase <30 L (30-110) U/L Lipase 368 H (23-300) U/L 05/02/16 05/02/16 Range/Units 05:59 06:00 APTT 106.7 H* (22.0-30.0) sec Sodium (137-145) mmol/L Potassium (3.5-5.1) mmol/L BUN (9-20) mg/dL Creatinine (0.66-1.25) mg/dL Glucose (74-99) mg/dL POC Glucose (mg/dL) 169 H (75-99) mg/dL Total Protein (6.3-8.2) g/dL Albumin (3.5-5.0) g/dL Amylase (30-110) U/L Lipase (23-300) U/L Microbiology - Last 24 Hours (Table) 04/28/16 22:00 Blood Culture - Preliminary Blood No Growth after 48 hours 04/28/16 12:15 Blood Culture - Preliminary Blood No Growth after 48 hours Assessment and Plan Plan: Acute pancreatitis: Continue full liquid diet as ordered. Monitor neurologic status. Repeat lab work tomorrow morning. Consider repeat CAT scan abdomen and pelvis if the patient does not show ongoing improvement.
[2016-05-02] MEDS: DILTIAZEM 125 MG in SODIUM CHLORIDE 0.9% 100 ML IV SCH (10:57)
--- NOTE | 2016-05-02 11:03 | P.PN ---
Subjective Principal diagnosis: ANAI with Acute pancreatitis Patient is seen in follow-up for acute kidney injury on chronic any disease. Patient has chronic kidney disease stage III with baseline creatinine in the range of 1-1.5 secondary to diabetic kidney disease. Creatinine did peak at 4.2 this admission and is down to 2.37 today. He is currently resting in bed. NG tube has been discontinued and he has been started on clear liquid diet which he is tolerating well. He has a Grimes catheter in place and is nonoliguric. No vomiting or diarrhea. Vital signs are stable. General: The patient appeared well nourished and normally developed. HEENT: Head exam is unremarkable. Neck is without jugular venous distension. LUNGS: Lungs are clear to auscultation and percussion. Breath sounds decreased. HEART: Rate and Rhythm are regular. First and second heart sounds normal. No murmurs, rubs or gallops. ABDOMEN: Abdominal exam reveals normal bowel sounds. Non-tender and non- distended. No evidence of peritonitis. EXTREMITITES: No clubbing, cyanosis, or edema. Objective - Vital Signs Vital signs: Vital Signs Temp 98.8 F 05/02/16 08:00 Pulse 76 05/02/16 08:50 Resp 20 05/02/16 08:00 BP 129/70 05/02/16 08:00 Pulse Ox 99 05/02/16 08:00 Intake & Output 05/01/16 05/02/16 05/02/16 18:59 06:59 18:59 Intake Total 1541.709 485.913 226.127 Output Total 750 1350 Balance 791.709 -864.087 226.127 Weight 110.3 kg 111.3 kg Intake: IV 920 Heparin Sodium,Porcine/ 320 D5w Pmx 25,000 unit In Dextrose/Water 1 500ml. bag @ 18 UNITS/KG/HR 38. 52 mls/hr IV .[id number] LUIS MANUEL Rx#:[id number] Sodium Chloride 0.45% 1, 500 000 ml @ 100 mls/hr IV . Q10H LUIS MANUEL Rx#:[id number] cefTRIAXone 2,000 mg In 100 Sodium Chloride 0.9% 100 ml @ 100 mls/hr IVPB Q24HR LUIS MANUEL Rx#:[id number] Oral 190 100 Other 431.709 385.913 226.127 Output: Urine 750 1350 Other: Voiding Method Indwelling Catheter Indwelling Catheter Indwelling Catheter # Voids 1 # Bowel Movements 1 - Labs CBC & Chem 7: 05/01/16 05:40 05/02/16 05:57 Labs: Abnormal Lab Results - Last 24 Hours (Table) 05/01/16 05/01/16 05/01/16 Range/Units 11:32 14:08 16:50 APTT 67.9 H (22.0-30.0) sec Sodium (137-145) mmol/L Potassium (3.5-5.1) mmol/L BUN (9-20) mg/dL Creatinine (0.66-1.25) mg/dL Glucose (74-99) mg/dL POC Glucose (mg/dL) 113 H 198 H (75-99) mg/dL Total Protein (6.3-8.2) g/dL Albumin (3.5-5.0) g/dL Amylase (30-110) U/L Lipase (23-300) U/L 05/01/16 05/02/16 05/02/16 Range/Units 23:47 01:22 05:57 APTT (22.0-30.0) sec Sodium 146 H (137-145) mmol/L Potassium 3.4 L (3.5-5.1) mmol/L BUN 58 H (9-20) mg/dL Creatinine 2.37 H (0.66-1.25) mg/dL Glucose 179 H (74-99) mg/dL POC Glucose (mg/dL) 215 H 193 H (75-99) mg/dL Total Protein 4.6 L (6.3-8.2) g/dL Albumin 2.2 L (3.5-5.0) g/dL Amylase <30 L (30-110) U/L Lipase 368 H (23-300) U/L 05/02/16 05/02/16 Range/Units 05:59 06:00 APTT 106.7 H* (22.0-30.0) sec Sodium (137-145) mmol/L Potassium (3.5-5.1) mmol/L BUN (9-20) mg/dL Creatinine (0.66-1.25) mg/dL Glucose (74-99) mg/dL POC Glucose (mg/dL) 169 H (75-99) mg/dL Total Protein (6.3-8.2) g/dL Albumin (3.5-5.0) g/dL Amylase (30-110) U/L Lipase (23-300) U/L Microbiology - Last 24 Hours (Table) 04/28/16 22:00 Blood Culture - Preliminary Blood No Growth after 48 hours 04/28/16 12:15 Blood Culture - Preliminary Blood No Growth after 48 hours Assessment and Plan Plan: Assessment: #1. Nonoliguric acute kidney injury secondary to ischemic ATN secondary to pancreatitis. Renal function improving with creatinine down to 2.37 today. #2. Chronic kidney disease stage III secondary to diabetic kidney disease with baseline creatinine in the range of 1-1.5. #3. Bilateral lower extremity DVTs. #4. Hypernatremia secondary to lack of free water intake. #5. Acute pancreatitis. #6. Hypokalemia secondary to increased urinary potassium losses. #7. Atrial fibrillation with RVR. Plan: Maintain IV fluids with half normal saline to be run at 100 mL an hour. Avoid nephrotoxic agents and hypotensive episodes. Maintain Grimes catheter. Repeat electrolytes in the morning. No need for renal replacement therapy at this time. Replace potassium. 40 mEq today. Grimes catheter may be discontinued. Monitor serial postvoid residuals.
--- NOTE | 2016-05-02 11:22 | PN ---
Patient is 56-year-old white male hospital with acute severe pancreatitis and is gradually improving. He was on a clear liquid diet yesterday, tolerating well. He still complains of some abdominal discomfort, but mostly is complaining of difficulty breathing. He reports no fever, chills, night sweats. He was diagnosed with DVT with possible PE and hence has been on IV heparin since hospitalization. On physical examination, he appears comfortable. Blood pressure 134/78, pulse 82, temperature 98. HEENT: Unremarkable. Conjunctivae pink. Sclerae anicteric. Oral cavity, no lesions. NECK: No JVD or lymph node enlargement. CHEST: Clear to auscultation. HEART: Regular rate and rhythm. ABDOMEN: Soft. Bowel sounds are positive. There was mild tenderness in the epigastric area which was slightly distended. EXTREMITIES: No pedal edema. SKIN: No rashes. NEURO: He is alert and oriented x3. No focal deficits. Labs from today, amylase is down to 30 and lipase is down to 368, ALT/AST, T-bili, and alkaline phosphatase are normal. CBC still pending at the time of this dictation. IMPRESSION: 1. Acute severe pancreatitis, gradually improving presently on broad-spectrum antibiotics and started on clear liquid diet yesterday, tolerating well. Amylase and lipase have significantly improved and almost normalized. 2. History of deep venous thrombosis/questionable pulmonary embolism, on IV heparin and pulmonary following the patient closely. RECOMMENDATIONS: 1. I will advance to a full liquid diet today. 2. Continue with other symptomatic and supportive care. 3. Will follow the patient during hospital stay.
--- NOTE | 2016-05-02 11:27 | XR ---
EXAMINATION TYPE: XR chest 1V portable DATE OF EXAM: 05/02/2016 11:15 AM HISTORY: Shortness of breath. COMPARISON: 04/30/2016 TECHNIQUE: Single view of the chest is submitted. Examination limited by diminished lung volumes. FINDINGS: Demonstrated are scattered senescent parenchymal change. Persistent left basilar opacity which may reflect a combination of atelectasis, infiltrate and/or eff usion. The heart is stable. Hilar and mediastinal structures are within normal limits. Degenerative changes are seen of the dorsal spine. IMPRESSION: 1. Persistent left basilar opacity which may reflect a combination of atelectasis, infiltrate and/or effusion.
[2016-05-02] MEDS: FOLIC ACID 1 MG TAB PO SCH (11:41)
[2016-05-02 12:07] LABS: Glucose,Whole Blood 173 mg/dL (75-99)
--- NOTE | 2016-05-02 15:22 | P.PN ---
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 Patient is known to ID service as he was seen in May 2015 at which time he was treated for cellulitis of the right lower extremity. At that time he underwent duplex study that was negative for DVT, x-ray that showed potential for abscess and CAT scan of the lower extremity was done that failed to reveal an abscess and was negative for osteomyelitis. He was treated with local wound care with Silvadene and he was discharged on oral Bactrim. Patient currently resides at [facility]. He states he had a sudden onset of chest pain on the left side while he was watching TV. It was sharp with a 5 out of 10 with mild shortness of breath. Patient was transferred to [facility] where he received 4 baby aspirin and 3 nitroglycerin that did not change his pain. His d -dimer was slightly elevated at 0.73. BUN was 26 and creatinine 1.8. It appears patient's baseline creatinine is 1.5-1.7. He was afebrile. Troponin was 0.017. He was given 1 L of IV fluids and there was concern for pulmonary embolism and patient was transferred to [facility] for VQ scan. Patient was admitted to the selective care unit. Unfortunately he was unable to complete the VQ scan. However, venous Dopplers of the bilateral lower extremities were positive on both sides. He underwent a chest x-ray that showed left lower lobe atelectasis or infiltrate and cardiomegaly. CAT scan of the abdomen and pelvis revealed acute pancreatitis. He subsequently underwent x -ray films that showed possible obstruction or ileus. Patient's last bowel movement was apparently 2 days ago. Repeat lab work showed leukocytosis of 16.4 , lactic acid 2.4 and BUN 43 with creatinine 3.5. Albumin 3.2. Potassium was 6.06 and he is status post Kayexalate. His heart rate has been running 120-130 since admission. He has the following consultations in place cardiology, pulmonary medicine, nephrology, surgery. Amylase was 632 and lipase 13,509. Patient continues to have left upper quadrant lower rib pain. He does complain of nausea without vomiting. He denies any diarrhea. He denies any cough or sputum reduction. He states he has shortness of breath all the time and he normally has rapid respirations per the patient area he denies any problems with his legs that he is aware of. He is incontinent of urine. Seems to be slightly improved today. More awake and alert. Knows that he is Ruchi Marin. Was able to state my name. Abdominal pains improved." Bowel movements occurred. diarrheas improved and not thought to have C. diff. Pulmonary has seen him and his added some BiPAP to try to improve his pulmonary status Objective - Vital Signs Vital signs: Vital Signs Temp 98.2 F 05/02/16 12:00 Pulse 72 05/02/16 12:26 Resp 20 05/02/16 12:00 BP 104/68 05/02/16 12:00 Pulse Ox 93 L 05/02/16 12:00 Intake & Output 05/01/16 05/02/16 05/02/16 18:59 06:59 18:59 Intake Total 1541.709 485.913 346.127 Output Total 750 1350 1000 Balance 791.709 -864.087 -653.873 Weight 110.3 kg 111.3 kg Intake: IV 920 Heparin Sodium,Porcine/ 320 D5w Pmx 25,000 unit In Dextrose/Water 1 500ml. bag @ 18 UNITS/KG/HR 38. 52 mls/hr IV .[id number] LUIS MANUEL Rx#:[id number] Sodium Chloride 0.45% 1, 500 000 ml @ 100 mls/hr IV . Q10H LUIS MANUEL Rx#:[id number] cefTRIAXone 2,000 mg In 100 Sodium Chloride 0.9% 100 ml @ 100 mls/hr IVPB Q24HR LUIS MANUEL Rx#:[id number] Oral 190 100 120 Other 431.709 385.913 226.127 Output: Urine 750 1350 1000 Other: Voiding Method Indwelling Catheter Indwelling Catheter Indwelling Catheter # Voids 1 # Bowel Movements 1 0 - Exam Gen: This is a obese 56-year-old male. He is laying in bed and noted to have rapid respirations but is able to speak in sentences HEENT: Head is atraumatic, normocephalic. Pupils equal, round. Sclerae is anicteric. Conjunctiva pink. Mucous membranes of the mouth are moist. No thrush noted. NECK: Supple. No JVD. No lymphadenopathy. No thyromegaly. LUNGS: Clear to auscultation. No wheezes or rhonchi. No intercostal retractions. HEART: Regular rate and rhythm. No murmur. ABDOMEN: Slightly distended. Bowel sounds are present. Generalized tenderness to the entire abdomen less tender to the left upper quadrant today. EXTREMITIES: Trace bilateral pedal edema. No erythema or wounds noted to the bilateral lower extremities NEUROLOGICAL: Patient is quite sleepy today - Labs CBC & Chem 7: 05/01/16 05:40 05/02/16 05:57 Labs: Abnormal Lab Results - Last 24 Hours (Table) 05/01/16 05/01/16 05/02/16 Range/Units 16:50 23:47 01:22 APTT (22.0-30.0) sec Sodium (137-145) mmol/L Potassium (3.5-5.1) mmol/L BUN (9-20) mg/dL Creatinine (0.66-1.25) mg/dL Glucose (74-99) mg/dL POC Glucose (mg/dL) 198 H 215 H 193 H (75-99) mg/dL Total Protein (6.3-8.2) g/dL Albumin (3.5-5.0) g/dL Amylase (30-110) U/L Lipase (23-300) U/L 05/02/16 05/02/16 05/02/16 Range/Units 05:57 05:59 06:00 APTT 106.7 H* (22.0-30.0) sec Sodium 146 H (137-145) mmol/L Potassium 3.4 L (3.5-5.1) mmol/L BUN 58 H (9-20) mg/dL Creatinine 2.37 H (0.66-1.25) mg/dL Glucose 179 H (74-99) mg/dL POC Glucose (mg/dL) 169 H (75-99) mg/dL Total Protein 4.6 L (6.3-8.2) g/dL Albumin 2.2 L (3.5-5.0) g/dL Amylase <30 L (30-110) U/L Lipase 368 H (23-300) U/L 05/02/16 Range/Units 12:01 APTT (22.0-30.0) sec Sodium (137-145) mmol/L Potassium (3.5-5.1) mmol/L BUN (9-20) mg/dL Creatinine (0.66-1.25) mg/dL Glucose (74-99) mg/dL POC Glucose (mg/dL) 173 H (75-99) mg/dL Total Protein (6.3-8.2) g/dL Albumin (3.5-5.0) g/dL Amylase (30-110) U/L Lipase (23-300) U/L Microbiology - Last 24 Hours (Table) 04/28/16 22:00 Blood Culture - Preliminary Blood No Growth after 72 hours 04/28/16 12:15 Blood Culture - Preliminary Blood No Growth after 72 hours Laboratory Results WBC 3.6 k/uL (3.8-10.6) L 05/01/16 05:40 RBC 2.71 m/uL (4.30-5.90) L 05/01/16 05:40 Hgb 9.2 gm/dL (13.0-17.5) L 05/01/16 05:40 Hct 29.8 % (39.0-53.0) L 05/01/16 05:40 MCV 109.7 fL (80.0-100.0) H 05/01/16 05:40 MCH 34.0 pg (25.0-35.0) 05/01/16 05:40 MCHC 31.0 g/dL (31.0-37.0) 05/01/16 05:40 RDW 14.9 % (11.5-15.5) 05/01/16 05:40 Plt Count 183 k/uL (150-450) 05/01/16 05:40 Neutrophils % 85 % 04/27/16 10:33 Neutrophils % (Manual) 66.5 % 05/01/16 05:40 Band Neutrophils % 22.0 % 05/01/16 05:40 Lymphocytes % 6 % 04/27/16 10:33 Lymphocytes % (Manual) 5.0 % 05/01/16 05:40 Monocytes % 7 % 04/27/16 10:33 Monocytes % (Manual) 6.0 % 05/01/16 05:40 Eosinophils % 1 % 04/27/16 10:33 Eosinophils % (Manual) 0.5 % 05/01/16 05:40 Basophils % 0 % 04/27/16 10:33 Metamyelocytes % 5.0 % 04/29/16 05:42 Myelocytes % 0.5 % 04/30/16 05:38 Neutrophils # 8.6 k/uL (1.3-7.7) H 04/27/16 10:33 Neutrophils # (Manual) 3.2 k/uL (1.3-7.7) 05/01/16 05:40 Lymphocytes # 0.6 k/uL (1.0-4.8) L 04/27/16 10:33 Lymphocytes # (Manual) 0.2 k/uL (1.0-4.8) L 05/01/16 05:40 Monocytes # 0.7 k/uL (0-1.0) 04/27/16 10:33 Monocytes # (Manual) 0.2 k/uL (0-1.0) 05/01/16 05:40 Eosinophils # 0.1 k/uL (0-0.7) 04/27/16 10:33 Eosinophils # (Manual) 0.0 k/uL (0-0.7) 05/01/16 05:40 Basophils # 0.0 k/uL (0-0.2) 04/27/16 10:33 Nucleated RBCs 0 /100 WBC (0-0) 05/01/16 05:40 Manual Slide Review Performed 04/30/16 05:38 Toxic Granulation Present 04/29/16 05:42 Toxic Vacuolation Present 04/29/16 05:42 Polychromasia Present 04/29/16 05:42 Hypochromasia Slight 05/01/16 05:40 Poikilocytosis (manual Present 05/01/16 05:40 Anisocytosis (manual) Present 05/01/16 05:40 Macrocytosis Marked 05/01/16 05:40 PT 12.6 sec (9.0-12.0) H 04/28/16 15:00 INR 1.3 (<1.1) 04/28/16 15:00 APTT 27.8 sec (22.0-30.0) 05/02/16 14:30 D-Dimer 2.06 mg/L FEU (<0.60) H 04/27/16 10:33 Sample Site LRA 05/01/16 18:33 ABG pH 7.37 (7.35-7.45) 05/01/16 18:33 ABG pCO2 40 mmHg (35-45) 05/01/16 18:33 ABG pO2 87 mmHg (83-108) 05/01/16 18:33 ABG HCO3 23 mmol/L (21-25) 05/01/16 18:33 ABG Total CO2 24 mmol/L (19-24) 05/01/16 18:33 ABG O2 Saturation 96.4 % (94-97) 05/01/16 18:33 ABG Base Excess -1.7 mmol/L 05/01/16 18:33 FiO2 80 % 05/01/16 18:33 Sodium 146 mmol/L (137-145) H 05/02/16 05:57 Potassium 3.4 mmol/L (3.5-5.1) L 05/02/16 05:57 Chloride 107 mmol/L (98-107) 05/02/16 05:57 Carbon Dioxide 27 mmol/L (22-30) 05/02/16 05:57 Anion Gap 12 mmol/L 05/02/16 05:57 BUN 58 mg/dL (9-20) H 05/02/16 05:57 Creatinine 2.37 mg/dL (0.66-1.25) H 05/02/16 05:57 Est GFR (MDRD) Af Amer 34 (>60 ml/min/1.73 sqM) 05/02/16 05:57 Est GFR (MDRD) Non-Af 28 (>60 ml/min/1.73 sqM) 05/02/16 05:57 Glucose 179 mg/dL (74-99) H 05/02/16 05:57 POC Glucose (mg/dL) 173 mg/dL (75-99) H 05/02/16 12:01 POC Glu Ged Preparation Teacher ID Trem[place]ne Sim 05/02/16 12:[address] Glu mg/dL 151 mg/dL 04/28/16 10:44 Hemoglobin A1c 6.9 % (4.2-6.1) H 04/28/16 10:44 Plasma Lactic Acid [place] 2.1 mmol/L (0.7-2.0) H 04/28/16 15:00 Calcium 8.4 mg/dL (8.4-10.2) 05/02/16 05:57 Phosphorus 5.8 mg/dL (2.5-4.5) H 05/01/16 05:40 Magnesium 2.0 mg/dL (1.6-2.3) 05/02/16 05:57 Total Bilirubin 0.5 mg/dL (0.2-1.3) 05/02/16 05:57 AST 28 U/L (17-59) 05/02/16 05:57 ALT 33 U/L (21-72) 05/02/16 05:57 Alkaline Phosphatase 46 U/L (38-126) 05/02/16 05:57 Total Creatine Kinase 64 U/L (55-170) 04/27/16 16:08 CK-MB (CK-2) 0.5 ng/mL (0.0-2.4) 04/27/16 16:08 CK-MB (CK-2) Rel Index 0.8 04/27/16 16:08 Troponin I <0.012 ng/mL (0.000-0.034) 04/27/16 16:08 NT-Pro-B Natriuret Pep 1810 pg/mL 04/28/16 06:08 Total Protein 4.6 g/dL (6.3-8.2) L 05/02/16 05:57 Albumin 2.2 g/dL (3.5-5.0) L 05/02/16 05:57 Triglycerides 235 mg/dL (<150) H 04/28/16 06:08 Cholesterol 120 mg/dL (<200) 04/28/16 06:08 LDL Cholesterol, Calc 46 mg/dL (0-99) 04/28/16 06:08 HDL Cholesterol 27 mg/dL (40-60) L 04/28/16 06:08 Amylase <30 U/L (30-110) L 05/02/16 05:57 Lipase 368 U/L (23-300) H 05/02/16 05:57 Urine Color Yellow 04/28/16 18:40 Urine Appearance Cloudy (Clear) 04/28/16 18:40 Urine pH 5.5 (5.0-8.0) 04/28/16 18:40 Ur Specific [place] 1.018 (1.001-1.035) 04/28/16 18:40 Urine Protein 2+ (Negative) H 04/28/16 18:40 Urine Glucose (UA) Trace (Negative) H 04/28/16 18:40 Urine Ketones Trace (Negative) H 04/28/16 18:40 Urine Blood Negative (Negative) 04/28/16 18:40 Urine Nitrate Negative (Negative) 04/28/16 18:40 Urine Bilirubin Negative (Negative) 04/28/16 18:40 Urine Urobilinogen <2.0 mg/dL (<2.0) 04/28/16 18:40 Ur Leukocyte Esterase Small (Negative) H 04/28/16 18:40 Urine WBC 26 /hpf (0-5) H 04/28/16 18:40 Amorphous Sediment Occasional /hpf (None) H 04/28/16 18:40 Hyaline Casts 22 /lpf (0-2) H 04/28/16 18:40 Granular Casts 19 /lpf (0) 04/28/16 18:40 Urine Mucus Rare /hpf (None) H 04/28/16 18:40 Hepatitis A IgM Ab NEGATIVE 04/28/16 21:50 Hep Bs Antigen Negative 04/28/16 21:50 Hep B Core IgM Ab NEGATIVE 04/28/16 21:50 Hep C IgG Ab Negative (Negative) 04/28/16 21:50 Microbiology 04/28/16 22:00 Blood Blood Culture - Preliminary No Growth after 72 hours 04/28/16 12:15 Blood Blood Culture - Preliminary No Growth after 72 hours 04/28/16 18:40 Urine,Catheterized Urine Culture - Final Assessment and Plan (1) Pancreatitis Narrative/Plan: 56-year-old male [facility] to [facility] abdominal pain. Evidence of phillip pancreatitis. Also had lower extremity edema without evidence of bilateral lower extremities deep venous thrombosis and likely pulmonary in this. Currently being treated with an heparin drip has been seen by hematology. No evidence of any significant sepsis at this time. Antibiotic therapy was tailored to ceftriaxone. The cultures remain negative we'll continue to monitor we'll discontinue Rocephin. leukocytosis has resolved. Likely within the bases the pancreatitis. Actually white count trended down a bit low. Known 70 infections and the antibiotic was discontinued. Status: Acute (2) Deep venous thrombosis Status: Acute (3) Leukocytosis Status: Acute
--- NOTE | 2016-05-02 15:45 | PN ---
Mr. Tariq is a patient who came in with atypical chest pain, went on to demonstrate pancreatitis and this is also improving, but there is evidence of DVT and he is now on heparin. However, this morning he went into atrial fibrillation with a moderate ventricular rate. Blood pressure is 110/70, pulse rate is about 120 per minute, irregular. JVD 1 cm, no carotid bruit. S1, S2 heard normally, but distantly, no rub was noted. Lungs reveal diminished air entry. Abdomen is softer. I am recommending that we initiate Cardizem bolus and drip for optimization of rate control. We will also continue his other medications. The patient is also on carvedilol for now. Based on clinical course, I will make further recommendations.
[2016-05-02] MEDS: FERROUS SULFATE 325 MG TAB PO SCH (15:56)
[2016-05-02] MEDS: LEVALBUTEROL NEB 1.25 MG/3 ML AMP INHALATION SCH ×2 (16:16→19:30)
[2016-05-02 16:40] LABS: INR 1.3 (<1.1); Prothrombin Time 12.5 sec (9.0-12.0)
[2016-05-02 17:17] LABS: Glucose,Whole Blood 293 mg/dL (75-99)
[2016-05-02] MEDS ORDERED: WARFARIN 7.5 MG TAB PO ONE (18:00)
[2016-05-02] MEDS: HYDROmorphone 1 MG/ML 1 ML SYRINGE IVP PRN (18:34)
[2016-05-02 20:37] LABS: Glucose,Whole Blood 252 mg/dL (75-99)
[2016-05-02 21:05] LABS: ABG Base Excess -4.1 mmol/L; ABG HCO3 22 mmol/L (21-25); ABG PCO2 49 mmHg (35-45); ABG PH 7.27 (7.35-7.45); ABG PO2 45 mmHg (83-108); ABG TCO2 23 mmol/L (19-24)
[2016-05-02] MEDS ORDERED: NALOXONE 0.4 MG/ML 1 ML VIAL IV STA (21:06)
[2016-05-02] MEDS ORDERED: NALOXONE 0.4 MG/ML 1 ML VIAL ONE (21:09)
[2016-05-02] MEDS: INSULIN GLARGINE 100 UNIT/ML 10 ML VIAL SQ SCH (21:19)
[2016-05-03 00:20] LABS: Glucose,Whole Blood 194 mg/dL (75-99)
[2016-05-03] MEDS: HEPARIN SODIUM,PORCINE/D5W PMX 25,000 UNIT in DEXTROSE/WATER 1 500ML.BAG IV SCH ×3 (00:30→22:01)
[2016-05-03] MEDS: methylPREDNISolone SOD SUCCI 125 MG/2 ML VIAL IV SCH ×5 (00:35→23:58)
[2016-05-03] MEDS: INSULIN LISPRO (humaLOG) 300 UNIT/3 ML VIAL SQ SCH ×5 (00:37→23:57)
[2016-05-03] MEDS: ATORVASTATIN 10 MG TAB PO SCH ×2 (01:25→20:15)
[2016-05-03] MEDS: FENOFIBRATE 160 MG TAB PO SCH ×2 (01:26→20:15)
[2016-05-03] MEDS: CALCIUM CARB-VIT D 500MG-200UN 1 EACH TAB PO SCH ×3 (01:26→20:15)
[2016-05-03] MEDS: SODIUM CHLORIDE 0.45% 1,000 ML IV SCH ×3 (01:27→23:54)
[2016-05-03 03:35] LABS: ALT 29 U/L (21-72); AST 31 U/L (17-59); Alkaline Phosphatase 37 U/L (38-126); Amylase <30 U/L (30-110); Anion Gap 11 mmol/L; Blood Urea Nitrogen 72 mg/dL (9-20); Calcium 8.6 mg/dL (8.4-10.2); Carbon Dioxide 26 mmol/L (22-30); Chloride 106 mmol/L (98-107); Glucose 168 mg/dL (74-99); Non-African American GFR(MDRD) 31 (>60 ml/min/1.73 sqM); Potassium 3.7 mmol/L (3.5-5.1); Sodium 143 mmol/L (137-145); Total Bilirubin 0.6 mg/dL (0.2-1.3)
[2016-05-03 03:54] LABS: CH 33.4; HDW 2.94; HGB 9.4 gm/dL (13.0-17.5); Hypochromasia Marked; Immature Gran Flag Marked; MCH 32.9 pg (25.0-35.0); MCHC 29.4 g/dL (31.0-37.0); Macrocytosis Marked; Mean Platelet Volume 9.5; RBC 2.86 m/uL (4.30-5.90); RDW 14.8 % (11.5-15.5); WBC (Perox) 5.56
[2016-05-03 04:32] LABS: Add Differential Manual Differential
[2016-05-03 04:40] LABS: Band Neutrophils % 30.5 %; Nucleated Red Blood Cells 1 /100 WBC (0-0); Total Cells Counted 200
[2016-05-03 04:41] LABS: Polychromasia Present; WBC 5.1 k/uL (3.8-10.6)
[2016-05-03 04:42] LABS: Large Platelets Present
[2016-05-03] MEDS: DILTIAZEM 125 MG in SODIUM CHLORIDE 0.9% 100 ML IV SCH (05:15)
[2016-05-03] MEDS: DIVALPROEX 500 MG TABLET.DR PO SCH ×2 (06:14→16:34)
[2016-05-03] MEDS: PANTOPRAZOLE 40 MG TABLET PO SCH (06:14)
[2016-05-03] MEDS: CARVEDILOL 12.5 MG TAB PO SCH ×2 (06:15→16:34)
[2016-05-03 06:31] LABS: Glucose,Whole Blood 148 mg/dL (75-99)
[2016-05-03 06:38] LABS: INR 1.7 (<1.1); Partial Thromboplastin Time 53.5 sec (22.0-30.0); Prothrombin Time 16.8 sec (9.0-12.0)
[2016-05-03] MEDS: LEVALBUTEROL NEB 1.25 MG/3 ML AMP INHALATION SCH ×3 (07:31→19:11)
[2016-05-03] MEDS: levETIRAcetam 500 MG TAB PO SCH ×2 (08:57→16:34)
[2016-05-03] MEDS: ASPIRIN 325 MG TAB PO SCH (08:57)
[2016-05-03] MEDS: ALLOPURINOL 100 MG TAB PO SCH (08:57)
[2016-05-03] MEDS: VENLAFAXINE HCL ER 150 MG CAP PO SCH (08:59)
--- NOTE | 2016-05-03 09:54 | P.PN ---
Subjective Principal diagnosis: ANAI with Acute pancreatitis Patient is seen in follow-up for acute kidney injury on chronic any disease. Patient has chronic kidney disease stage III with baseline creatinine in the range of 1-1.5 secondary to diabetic kidney disease. Creatinine did peak at 4.2 this admission and is down to 2.2 today. He is currently resting in bed. NG tube has been discontinued and he has been started on clear liquid diet which he is tolerating well. He has a Grimes catheter in place and is nonoliguric. No vomiting or diarrhea. Denies chest pain. He was dyspneic and is currently wearing a BiPAP. Vital signs are stable. General: The patient appeared well nourished and normally developed. HEENT: Head exam is unremarkable. Neck is without jugular venous distension. LUNGS: Lungs are clear to auscultation and percussion. Breath sounds decreased. HEART: Rate and Rhythm are regular. First and second heart sounds normal. No murmurs, rubs or gallops. ABDOMEN: Abdominal exam reveals normal bowel sounds. Non-tender and non- distended. No evidence of peritonitis. EXTREMITITES: No clubbing, cyanosis, or edema. Objective - Vital Signs Vital signs: Vital Signs Temp 97.5 F L 05/03/16 04:00 Pulse 83 05/03/16 07:45 Resp 18 05/03/16 06:11 BP 112/70 05/03/16 06:15 Pulse Ox 93 L 05/03/16 06:11 Intake & Output 05/02/16 05/03/16 05/03/16 18:59 06:59 18:59 Intake Total 446.127 433.981 Output Total 1000 575 Balance -553.873 -141.019 Weight 115.5 kg Intake: Oral 220 Other 226.127 433.981 Output: Urine 1000 575 Other: Voiding Method Indwelling Catheter Indwelling Catheter # Bowel Movements 0 - Labs CBC & Chem 7: 05/03/16 02:43 05/03/16 02:43 Labs: Abnormal Lab Results - Last 24 Hours (Table) 05/02/16 05/02/16 05/02/16 Range/Units 12:01 14:30 16:56 RBC (4.30-5.90) m/uL Hgb (13.0-17.5) gm/dL Hct (39.0-53.0) % MCV (80.0-100.0) fL MCHC (31.0-37.0) g/dL Lymphocytes # (Manual) (1.0-4.8) k/uL Nucleated RBCs (0-0) /100 WBC PT 12.5 H (9.0-12.0) sec APTT (22.0-30.0) sec ABG pH (7.35-7.45) ABG pCO2 (35-45) mmHg ABG pO2 (83-108) mmHg ABG O2 Saturation (94-97) % BUN (9-20) mg/dL Creatinine (0.66-1.25) mg/dL Glucose (74-99) mg/dL POC Glucose (mg/dL) 173 H 293 H (75-99) mg/dL Alkaline Phosphatase (38-126) U/L Total Protein (6.3-8.2) g/dL Albumin (3.5-5.0) g/dL Amylase (30-110) U/L Lipase (23-300) U/L 05/02/16 05/02/16 05/03/16 Range/Units 20:35 20:43 00:18 RBC (4.30-5.90) m/uL Hgb (13.0-17.5) gm/dL Hct (39.0-53.0) % MCV (80.0-100.0) fL MCHC (31.0-37.0) g/dL Lymphocytes # (Manual) (1.0-4.8) k/uL Nucleated RBCs (0-0) /100 WBC PT (9.0-12.0) sec APTT (22.0-30.0) sec ABG pH 7.27 L (7.35-7.45) ABG pCO2 49 H (35-45) mmHg ABG pO2 45 L* (83-108) mmHg ABG O2 Saturation 75.0 L (94-97) % BUN (9-20) mg/dL Creatinine (0.66-1.25) mg/dL Glucose (74-99) mg/dL POC Glucose (mg/dL) 252 H 194 H (75-99) mg/dL Alkaline Phosphatase (38-126) U/L Total Protein (6.3-8.2) g/dL Albumin (3.5-5.0) g/dL Amylase (30-110) U/L Lipase (23-300) U/L 05/03/16 05/03/16 05/03/16 Range/Units 02:43 02:43 05:55 RBC 2.86 L (4.30-5.90) m/uL Hgb 9.4 L (13.0-17.5) gm/dL Hct 32.0 L (39.0-53.0) % MCV 112.0 H (80.0-100.0) fL MCHC 29.4 L (31.0-37.0) g/dL Lymphocytes # (Manual) 0.8 L (1.0-4.8) k/uL Nucleated RBCs 1 H (0-0) /100 WBC PT 16.8 H (9.0-12.0) sec APTT 53.5 H (22.0-30.0) sec ABG pH (7.35-7.45) ABG pCO2 (35-45) mmHg ABG pO2 (83-108) mmHg ABG O2 Saturation (94-97) % BUN 72 H (9-20) mg/dL Creatinine 2.20 H (0.66-1.25) mg/dL Glucose 168 H (74-99) mg/dL POC Glucose (mg/dL) (75-99) mg/dL Alkaline Phosphatase 37 L (38-126) U/L Total Protein 5.0 L (6.3-8.2) g/dL Albumin 2.3 L (3.5-5.0) g/dL Amylase <30 L (30-110) U/L Lipase 317 H (23-300) U/L 05/03/16 Range/Units 06:29 RBC (4.30-5.90) m/uL Hgb (13.0-17.5) gm/dL Hct (39.0-53.0) % MCV (80.0-100.0) fL MCHC (31.0-37.0) g/dL Lymphocytes # (Manual) (1.0-4.8) k/uL Nucleated RBCs (0-0) /100 WBC PT (9.0-12.0) sec APTT (22.0-30.0) sec ABG pH (7.35-7.45) ABG pCO2 (35-45) mmHg ABG pO2 (83-108) mmHg ABG O2 Saturation (94-97) % BUN (9-20) mg/dL Creatinine (0.66-1.25) mg/dL Glucose (74-99) mg/dL POC Glucose (mg/dL) 148 H (75-99) mg/dL Alkaline Phosphatase (38-126) U/L Total Protein (6.3-8.2) g/dL Albumin (3.5-5.0) g/dL Amylase (30-110) U/L Lipase (23-300) U/L Microbiology - Last 24 Hours (Table) 04/28/16 22:00 Blood Culture - Preliminary Blood No Growth after 72 hours 04/28/16 12:15 Blood Culture - Preliminary Blood No Growth after 72 hours Assessment and Plan Plan: Assessment: #1. Nonoliguric acute kidney injury secondary to ischemic ATN secondary to pancreatitis. Renal function improving with creatinine down to 2.2 today. #2. Chronic kidney disease stage III secondary to diabetic kidney disease with baseline creatinine in the range of 1-1.5. #3. Bilateral lower extremity DVTs. #4. Hypernatremia secondary to lack of free water intake. #5. Acute pancreatitis. #6. Hypokalemia secondary to increased urinary potassium losses. #7. Atrial fibrillation. Plan: Maintain IV fluids with half normal saline to be run at 100 mL an hour. Avoid nephrotoxic agents and hypotensive episodes. Okay to discontinue Grimes catheter. Repeat electrolytes in the morning. No need for renal replacement therapy at this time.
--- NOTE | 2016-05-03 10:04 | P.PN ---
Subjective Principal diagnosis: ANAI with Acute pancreatitis Patient with more alert this morning. Complains of mild upper abdominal pain. He admits that it is improving. His lipase is 317. He still has some bandemia however he is on IV steroids. He is currently on CPAP and that appears to be helping with his mentation Objective - Vital Signs Vital signs: Vital Signs Temp 97.5 F L 05/03/16 04:00 Pulse 83 05/03/16 07:45 Resp 18 05/03/16 06:11 BP 112/70 05/03/16 06:15 Pulse Ox 93 L 05/03/16 06:11 Intake & Output 05/02/16 05/03/16 05/03/16 18:59 06:59 18:59 Intake Total 446.127 433.981 Output Total 1000 575 Balance -553.873 -141.019 Weight 115.5 kg Intake: Oral 220 Other 226.127 433.981 Output: Urine 1000 575 Other: Voiding Method Indwelling Catheter Indwelling Catheter # Bowel Movements 0 - Exam Abdomen: Soft, nondistended, mild epigastric tenderness, hernias noted - Labs CBC & Chem 7: 05/03/16 02:43 05/03/16 02:43 Labs: Abnormal Lab Results - Last 24 Hours (Table) 05/02/16 05/02/16 05/02/16 Range/Units 12:01 14:30 16:56 RBC (4.30-5.90) m/uL Hgb (13.0-17.5) gm/dL Hct (39.0-53.0) % MCV (80.0-100.0) fL MCHC (31.0-37.0) g/dL Lymphocytes # (Manual) (1.0-4.8) k/uL Nucleated RBCs (0-0) /100 WBC PT 12.5 H (9.0-12.0) sec APTT (22.0-30.0) sec ABG pH (7.35-7.45) ABG pCO2 (35-45) mmHg ABG pO2 (83-108) mmHg ABG O2 Saturation (94-97) % BUN (9-20) mg/dL Creatinine (0.66-1.25) mg/dL Glucose (74-99) mg/dL POC Glucose (mg/dL) 173 H 293 H (75-99) mg/dL Alkaline Phosphatase (38-126) U/L Total Protein (6.3-8.2) g/dL Albumin (3.5-5.0) g/dL Amylase (30-110) U/L Lipase (23-300) U/L 05/02/16 05/02/16 05/03/16 Range/Units 20:35 20:43 00:18 RBC (4.30-5.90) m/uL Hgb (13.0-17.5) gm/dL Hct (39.0-53.0) % MCV (80.0-100.0) fL MCHC (31.0-37.0) g/dL Lymphocytes # (Manual) (1.0-4.8) k/uL Nucleated RBCs (0-0) /100 WBC PT (9.0-12.0) sec APTT (22.0-30.0) sec ABG pH 7.27 L (7.35-7.45) ABG pCO2 49 H (35-45) mmHg ABG pO2 45 L* (83-108) mmHg ABG O2 Saturation 75.0 L (94-97) % BUN (9-20) mg/dL Creatinine (0.66-1.25) mg/dL Glucose (74-99) mg/dL POC Glucose (mg/dL) 252 H 194 H (75-99) mg/dL Alkaline Phosphatase (38-126) U/L Total Protein (6.3-8.2) g/dL Albumin (3.5-5.0) g/dL Amylase (30-110) U/L Lipase (23-300) U/L 05/03/16 05/03/16 05/03/16 Range/Units 02:43 02:43 05:55 RBC 2.86 L (4.30-5.90) m/uL Hgb 9.4 L (13.0-17.5) gm/dL Hct 32.0 L (39.0-53.0) % MCV 112.0 H (80.0-100.0) fL MCHC 29.4 L (31.0-37.0) g/dL Lymphocytes # (Manual) 0.8 L (1.0-4.8) k/uL Nucleated RBCs 1 H (0-0) /100 WBC PT 16.8 H (9.0-12.0) sec APTT 53.5 H (22.0-30.0) sec ABG pH (7.35-7.45) ABG pCO2 (35-45) mmHg ABG pO2 (83-108) mmHg ABG O2 Saturation (94-97) % BUN 72 H (9-20) mg/dL Creatinine 2.20 H (0.66-1.25) mg/dL Glucose 168 H (74-99) mg/dL POC Glucose (mg/dL) (75-99) mg/dL Alkaline Phosphatase 37 L (38-126) U/L Total Protein 5.0 L (6.3-8.2) g/dL Albumin 2.3 L (3.5-5.0) g/dL Amylase <30 L (30-110) U/L Lipase 317 H (23-300) U/L 05/03/16 Range/Units 06:29 RBC (4.30-5.90) m/uL Hgb (13.0-17.5) gm/dL Hct (39.0-53.0) % MCV (80.0-100.0) fL MCHC (31.0-37.0) g/dL Lymphocytes # (Manual) (1.0-4.8) k/uL Nucleated RBCs (0-0) /100 WBC PT (9.0-12.0) sec APTT (22.0-30.0) sec ABG pH (7.35-7.45) ABG pCO2 (35-45) mmHg ABG pO2 (83-108) mmHg ABG O2 Saturation (94-97) % BUN (9-20) mg/dL Creatinine (0.66-1.25) mg/dL Glucose (74-99) mg/dL POC Glucose (mg/dL) 148 H (75-99) mg/dL Alkaline Phosphatase (38-126) U/L Total Protein (6.3-8.2) g/dL Albumin (3.5-5.0) g/dL Amylase (30-110) U/L Lipase (23-300) U/L Microbiology - Last 24 Hours (Table) 04/28/16 22:00 Blood Culture - Preliminary Blood No Growth after 72 hours 04/28/16 12:15 Blood Culture - Preliminary Blood No Growth after 72 hours Assessment and Plan (1) Pancreatitis Narrative/Plan: Continue advancing diet per GI. Currently he is scheduled for a low-fat diet at lunchtime. Repeat lab work tomorrow. Status: Acute
[2016-05-03] MEDS: VERAPAMIL 40 MG TAB PO SCH ×3 (10:51→20:15)
--- NOTE | 2016-05-03 11:39 | PN ---
DATE OF SERVICE: 05/02/2016 This 56-year-old gentleman who was admitted with abdominal pain, acute pancreatitis, also had multiple other medical problems including sepsis. The patient's cultures are negative so far. The patient was treated empirically with antibiotics. The patient also had acute bilateral deep venous thrombosis. Patient is on IV heparin also. The patient also had acute kidney injury. Multiple consultants are following the patient closely. The cultures are negative. Rocephin has been discontinued. HISTORY OF PRESENT ILLNESS: Reviewed. PHYSICAL EXAMINATION: At this time the patient is alert and oriented x2. Pulse is 108, blood pressure one 101/59, respirations 16, temperature 98.2, pulse ox 92% on 4 liters and 90% on 8 liters. HEENT: Conjunctivae normal. NECK: No JVD. CARDIOVASCULAR: S1 and S2 muffled. LUNGS: Breath sounds are diminished at the bases. Bilateral scattered rhonchi and crackles. ABDOMEN: Soft. Mild diffuse tenderness. LEGS: No edema. NERVOUS SYSTEM: No focal deficits. LABS: Creatinine 2.37, albumin is 2.2. ASSESSMENT: 1. Abdominal pain with acute severe pancreatitis with possible sepsis present on admission. 2. Hyperlipidemia with increased triglycerides. 3. Bilateral lower leg deep venous thromboses. 4. Heparin monitoring. 5. Hypoalbuminemia with mild to moderate protein calorie malnutrition. 6. Increased lactic acid on admission. 7. Acute on chronic renal failure, stage 3, secondary to acute tubular necrosis, multifactorial with prerenal factors. 8. Hyperkalemia secondary to acute tubular necrosis. 9. Leukocytosis secondary to possible sepsis. 10. Obesity, body mass index of 38.4. 11. Coronary artery disease. 12. History of congestive heart failure, ejection fraction unknown. 13. Congestive heart failure, ejection fraction 60% to 65% with chronic diastolic dysfunction. 14. History of cerebrovascular accident, transient ischemic attack. 15. Paraplegia secondary to anterior cerebral artery infarction. 16. Diabetes mellitus type 2. 17. Gastroesophageal reflux disease. 18. Essential hypertension. 19. Hyperlipidemia. 20. Degenerative joint disease. 21. Seizure disorder. 22. Peripheral vascular disease. 23. Bibasilar atelectasis. 24. History of sacral decubitus, currently stage II pressure ulcer in the mid-coccyx. 25. Heparin monitoring. 26. Bilateral pleural effusion, increasing left pleural effusion per chest x-ray. 27. Hyponatremia secondary to free water intake deficit. 28. Hypokalemia. 29. FULL CODE. RECOMMENDATIONS AND DISCUSSION: In this 56-year-old gentleman with multiple complex medical issues, we will monitor the patient closely, continue the current medications and symptomatic treatment. Otherwise, I would recommend monitoring PT-INR closely. Guarded prognosis because of multiple complex medical issues.
[2016-05-03 11:53] LABS: Glucose,Whole Blood 165 mg/dL (75-99)
[2016-05-03] MEDS: FOLIC ACID 1 MG TAB PO SCH (12:04)
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
[2016-05-03] MEDS ORDERED: RX INFO: IV CONTRAST WAS GIVEN 1 EACH MISC MISCELLANE PRN (12:54)
[2016-05-03 13:11] LABS: ABG Base Excess -2.1 mmol/L; ABG HCO3 22 mmol/L (21-25); ABG Oxygen Saturation 93.9 % (94-97); ABG PCO2 34 mmHg (35-45); ABG PH 7.42 (7.35-7.45); ABG PO2 68 mmHg (83-108); ABG TCO2 23 mmol/L (19-24)
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
--- NOTE | 2016-05-03 14:14 | CT ---
EXAMINATION TYPE: CT chest wo con DATE OF EXAM: 05/03/2016 1:49 PM COMPARISON: NONE HISTORY: Patient complains of difficulty breathing. CT DLP: 875 mGycm Automated exposure control for dose reduction was used. FINDINGS: There are diffuse emphysematous changes throughout the lungs. There are bilateral pleural effusions, greater on the left than the right. There is bibasilar airspac e disease, likely representing relaxation atelectasis. There is no significant axillary, mediastinal or hilar adenopathy. The heart is not enlarged. There is no pleural effusion. Within the abdomen, there is ascites. There is inflammatory change surrounding the pancreas without a definite drainable fluid collection. There is a ventral hernia containing fat only with a mouth measuring 28.3 mm. There is mild hypertrophic spondylosis within the spine. IMPRESSION: 1. DIFFUSE EMPHYSEMATOUS CHANGE. 2. BILATERAL PLEURAL EFFUSIONS WELL ASCITES. 3. BIBASILAR AIRSPACE DISEASE, LIKELY REPRESENTING RELAXATION ATELECTASIS. 4. INFLAMMATORY CHANGE SURROUNDING THE PANCREAS IS SUGGESTIVE OF PANCREATITIS. 5. VENTRAL HERNIA CONTAINING FAT ONLY WITH THE MOST MEASURING 2.8 CM. 6. DEGENERATIVE CHANGES WITHIN THE SPINE.
--- NOTE | 2016-05-03 15:43 | PN ---
Mr. Tariq is here with pancreatitis, DVT, on heparin drip. Yesterday went into atrial fibrillation with a rapid ventricular rate. I started him on Cardizem IV. His rate is better. Hemodynamically stable. I am recommending we switch him to oral verapamil and discontinue IV Cardizem and see how he does. His vital signs are stable. S1, S2 heard normally. The patient is on a BiPAP. Has underlying lung disease. Abdomen and lower extremity exam is unchanged. 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 Details are unavailable. We will continue verapamil orally in addition to beta blockers and discontinue IV Cardizem and see how he does.
[2016-05-03] MEDS: FERROUS SULFATE 325 MG TAB PO SCH (16:34)
[2016-05-03 17:11] LABS: Glucose,Whole Blood 136 mg/dL (75-99)
[2016-05-03] MEDS ORDERED: WARFARIN 5 MG TAB PO ONE (18:15)
[2016-05-03] MEDS: traMADol 50 MG TAB PO PRN (23:51)
[2016-05-03 23:55] LABS: Glucose,Whole Blood 176 mg/dL (75-99)
[2016-05-04] MEDS: INSULIN GLARGINE 100 UNIT/ML 10 ML VIAL SQ SCH ×2 (00:32→22:45)
[2016-05-04] MEDS: DIVALPROEX 500 MG TABLET.DR PO SCH ×2 (06:31→18:03)
[2016-05-04] MEDS: PANTOPRAZOLE 40 MG TABLET PO SCH (06:31)
[2016-05-04] MEDS: methylPREDNISolone SOD SUCCI 125 MG/2 ML VIAL IV SCH ×4 (06:31→23:17)
[2016-05-04] MEDS: SODIUM CHLORIDE 0.45% 1,000 ML IV SCH ×2 (06:31→18:59)
[2016-05-04] MEDS: CARVEDILOL 12.5 MG TAB PO SCH ×2 (06:31→18:03)
[2016-05-04 06:39] LABS: Calcium 8.5 mg/dL (8.4-10.2)
[2016-05-04 06:43] LABS: Glucose,Whole Blood 164 mg/dL (75-99)
[2016-05-04 06:50] LABS: Potassium 2.9 mmol/L (3.5-5.1)
[2016-05-04 06:53] LABS: Partial Thromboplastin Time 89.5 sec (22.0-30.0); Prothrombin Time 64.1 sec (9.0-12.0)
[2016-05-04 06:55] LABS: INR 6.3 (<1.1)
[2016-05-04] MEDS: LEVALBUTEROL NEB 1.25 MG/3 ML AMP INHALATION SCH ×3 (07:31→19:40)
[2016-05-04] MEDS: POTASSIUM CHLORIDE 10 MEQ, LIDOCAINE 2% INJ 10 MG in SODIUM CHLORIDE 0.9% 100 ML IVPB SCH ×6 (08:14→18:58)
[2016-05-04] MEDS: INSULIN LISPRO (humaLOG) 300 UNIT/3 ML VIAL SQ SCH ×4 (08:20→23:18)
--- NOTE | 2016-05-04 09:01 | XR ---
EXAMINATION TYPE: XR chest 1V portable DATE OF EXAM: 05/04/2016 7:36 AM COMPARISON: 05/02/2016 HISTORY: Left pleural effusion TECHNIQUE: Single frontal view of the chest is obtained. FINDINGS: Stable left-sided pleural effusion and consolidation. No pneumothorax. Heart is enlarged b ut stable. Underlying COPD suspected. IMPRESSION: 1. Stable left-sided consolidation and small effusion. Mild central venous congestion not excluded.
--- NOTE | 2016-05-04 09:04 | US ---
EXAMINATION TYPE: US chest DATE OF EXAM: 05/04/2016 7:38 AM COMPARISON: NONE CLINICAL HISTORY: US. Bilateral pleural effusion EXAM MEASUREMENTS: Right Pleural Effusion fluid pocket: no marking Left Pleural Effusion fluid pocket: 4.4 cm Left skin to fluid thickness: 2.7 cm Right side marked for possible thoracentesis outside the dept. Left side not marked. Pulmonologists are able to review the images in the patient?s EMR. IMPRESSIONS: 1. No sizable right pleural effusion 2. Very small left-sided pleural effusion.
--- NOTE | 2016-05-04 10:42 | PN ---
DATE OF SERVICE: 05/03/2016 This 56-year-old gentleman who was admitted with abdominal pain as well as history of pancreatitis, also had had possible sepsis. Patient has hyperlipidemia, change in mental status. Patient has bilateral DVT and patient has significant hypoxemia. Dr. Lopez is following the patient closely. CT scan of the chest showed significant emphysematous changes, pleural effusions, ascites and bilateral airspace disease, inflammatory changes, and ventral hernia and degenerative joint disease of the spine also. The patient is on BiPAP at this time because of acute respiratory failure. The VQ scan was indeterminate. Dr. Lopez is recommending ultrasound of the left chest wall fluid at this time. PAST MEDICAL HISTORY: Reviewed. Review of systems could not be taken. The patient is confused. Current medications were reviewed include: 1. Tylenol 650 q.6 p.r.n. 2. Zyloprim 200 mg. 3. Aspirin 325 mg. 4. Lipitor. 5. Os-Faheem with vitamin D. 6. Coreg. 7. Depakote. 8. Vitamin D2. 9. Lofibra. 10. Iron sulfate. 11. Folic acid. 12. Dilaudid. 13. Lantus. 15. Keppra. 16. Solu-Medrol. 17. Protonix. 18. Ultram. 19. Effexor. 20. Isoptin. 21. IV heparin. PHYSICAL EXAMINATION: The patient on BiPAP, conscious, but confused. Pulse 90, blood pressure 160/61, respirations 21, temperature 97.7, pulse ox 94% on 70% BiPAP. HEENT: Conjunctivae normal. Oral mucosa moist. NECK: No jugular venous distention. No carotid bruit. No lymph node enlargement. CARDIOVASCULAR: S1 and S2, muffled. No S3, no S4. RESPIRATORY: Breath sounds diminished at the bases. Bilateral scattered rhonchi and crackles. ABDOMEN: Soft, obese, nontender. No mass palpable. LEGS: No edema, no swelling. NERVOUS SYSTEM: Higher function as mentioned. Moves all four limbs. No focal motor deficits. LYMPHATIC: No lymphadenopathy in the neck, axillae or groin. SKIN: No ulcer, rash or bleeding. LABS: INR 1.7. WBC 5, hemoglobin is 9.4 and MCV is 112. Other labs are noted. ASSESSMENT: 1. Abdominal pain with acute severe pancreatitis with possible sepsis, present on admission. 2. Acute hypoxic respiratory failure, possibly multifactorial on BiPAP. 3. Change in mental status, metabolic encephalopathy. 4. Bilateral pleural effusion left more than the right, possibly reactive. 5. Possible pneumonia bibasilar, possibly gram-negative. 6. Hyperlipidemia with increased triglycerides. 7. Bilateral lower leg deep venous thromboses. 8. Intermediate VQ scan with possible pulmonary embolus. 9. IV heparin monitoring. 10. Hypoalbuminemia with mild to moderate protein calorie malnutrition. 11. Increased lactic acid on admission. 12. Acute on chronic renal failure, stage III, secondary to acute tubular necrosis multifactorial with prerenal factors. 13. Hyperkalemia secondary to acute tubular necrosis. 14. Leukocytosis secondary to possible sepsis. 15. Obesity with a body mass index of 38.4. 16. History of coronary artery disease. 17. History of congestive heart failure, ejection fraction of 60 to 65% with chronic diastolic dysfunction. 18. History of cerebrovascular accident, transient ischemic attack. 19. 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 20. Diabetes mellitus type 2. 21. Gastroesophageal reflux disease. 22. History of hypertension. 23. Hyperlipidemia. 24. Degenerative joint disease. 25. History of seizure disorder. 26. History of peripheral vascular disease. 27. History of bibasilar atelectasis. 28. History of sacral decubitus currently staged pressure ulcer in the mid-coccyx. 29. Bilateral pleural effusion. 30. Hyponatremia, secondary to free water deficit. 31. Hypokalemia. 32. FULL CODE. 33. Chronic obstructive pulmonary disease. 34. Ventral hernia. RECOMMENDATIONS AND DISCUSSION: In this 56-year-old gentleman who presented with multiple complex medical history, will monitor the patient closely. Continue the current medications. Continue symptomatic treatment. Otherwise, at this time continue the bronchodilators. Continue with the IV steroids. I also recommend broad-spectrum IV antibiotics at this time. Guarded prognosis because of multiple complex medical issues. Further recommendations to follow. Dr. Lopez has recommended CAT scan of the abdomen. Further recommendations to follow. See orders for details. MTDD
[2016-05-04 11:55] LABS: Glucose,Whole Blood 111 mg/dL (75-99)
[2016-05-04] MEDS: HYDROmorphone 1 MG/ML 1 ML SYRINGE IVP PRN (12:03)
--- NOTE | 2016-05-04 13:24 | P.PN ---
Subjective Principal diagnosis: ANAI with Acute pancreatitis Patient is seen in follow-up for acute kidney injury on chronic any disease. Patient has chronic kidney disease stage III with baseline creatinine in the range of 1-1.5 secondary to diabetic kidney disease. Creatinine did peak at 4.2 this admission and is down to 1.97 today. He is currently resting in bed. NG tube has been discontinued and he has been started on clear liquid diet which he is tolerating well. He has a Grimes catheter in place and is nonoliguric. No vomiting or diarrhea. Denies chest pain. Dyspnea is stable. Currently on BiPAP. Vital signs are stable. General: The patient appeared well nourished and normally developed. HEENT: Head exam is unremarkable. Neck is without jugular venous distension. LUNGS: Lungs are clear to auscultation and percussion. Breath sounds decreased. HEART: Rate and Rhythm are regular. First and second heart sounds normal. No murmurs, rubs or gallops. ABDOMEN: Abdominal exam reveals normal bowel sounds. Non-tender and non- distended. No evidence of peritonitis. EXTREMITITES: No clubbing, cyanosis, or edema. Objective - Vital Signs Vital signs: Vital Signs Temp 97 F L 05/04/16 04:00 Pulse 91 05/04/16 07:43 Resp 20 05/04/16 04:00 BP 120/70 05/04/16 06:20 Pulse Ox 93 L 05/04/16 04:00 Intake & Output 05/03/16 05/04/16 05/04/16 18:59 06:59 18:59 Intake Total 520.437 253.447 0 Output Total 920 950 980 Balance -399.563 -696.553 -980 Weight 115.5 kg Intake: IV 300 Sodium Chloride 0.45% 1, 300 000 ml @ 100 mls/hr IV . Q10H [facility] Rx#:[id number] Oral 120 0 Other 100.437 253.447 Output: Urine 920 950 980 Other: Voiding Method Indwelling Catheter Indwelling Catheter # Bowel Movements 2 - Labs CBC & Chem 7: 05/03/16 02:43 05/04/16 05:52 Labs: Abnormal Lab Results - Last 24 Hours (Table) 05/03/16 05/03/16 05/04/16 Range/Units 17:01 23:53 05:52 PT 64.1 H (9.0-12.0) sec INR 6.3 H* (<1.1) APTT 89.5 H (22.0-30.0) sec Sodium (137-145) mmol/L Potassium (3.5-5.1) mmol/L Chloride (98-107) mmol/L BUN (9-20) mg/dL Creatinine (0.66-1.25) mg/dL Glucose (74-99) mg/dL POC Glucose (mg/dL) 136 H 176 H (75-99) mg/dL 05/04/16 05/04/16 05/04/16 Range/Units 05:52 06:41 11:51 PT (9.0-12.0) sec INR (<1.1) APTT (22.0-30.0) sec Sodium 146 H (137-145) mmol/L Potassium 2.9 L* (3.5-5.1) mmol/L Chloride 108 H (98-107) mmol/L BUN 70 H (9-20) mg/dL Creatinine 1.97 H (0.66-1.25) mg/dL Glucose 133 H (74-99) mg/dL POC Glucose (mg/dL) 164 H 111 H (75-99) mg/dL Microbiology - Last 24 Hours (Table) 04/28/16 22:00 Blood Culture - Preliminary Blood No Growth after 120 hours 04/28/16 12:15 Blood Culture - Preliminary Blood No Growth after 120 hours Assessment and Plan Plan: Assessment: #1. Nonoliguric acute kidney injury secondary to ischemic ATN secondary to pancreatitis. Renal function improving with creatinine down to 1.97 today. #2. Chronic kidney disease stage III secondary to diabetic kidney disease with baseline creatinine in the range of 1-1.5. #3. Bilateral lower extremity DVTs. #4. Hypernatremia secondary to lack of free water intake. #5. Acute pancreatitis. #6. Hypokalemia secondary to increased urinary potassium losses. Magnesium replete. #7. Atrial fibrillation. Plan: Maintain IV fluids with half normal saline to be run at 100 mL an hour. Avoid nephrotoxic agents and hypotensive episodes. Okay to discontinue Grimes catheter. Repeat electrolytes in the morning. No need for renal replacement therapy at this time. Replace potassium. 60 mEq today.
[2016-05-04] MEDS ORDERED: FUROSEMIDE 10 MG/ML 4 ML VIAL IV STA (13:52)
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
--- NOTE | 2016-05-04 14:46 | P.PN ---
Subjective Principal diagnosis: ANAI with Acute pancreatitis This is a 56-year-old gentleman who has history of cerebral aneurysm several years ago and is paraplegic. Patient also has history of hypertension, diabetes , hyperlipidemia, seizure disorder. Patient apparently came to the hospital with some discomfort in his mid abdominal and chest area. Troponin was normal at [place] and subsequent troponins here were negative as well. EKG was performed which did not reveal any acute changes. Echocardiogram with Doppler study was performed which revealed an ejection fraction of 60-65%. Currently being treated for pancreatitis DVT. On IV heparin.. CT of the chest was performed which did not reveal any sizable right pleural effusion, very small left-sided pleural effusion. Hemodynamically stable, heart rate today in the 90s. We will continue current dose of Isoptin. INR 6. patient does appear more short of breath today. Objective - Vital Signs Vital signs: Vital Signs Temp 97 F L 05/04/16 04:00 Pulse 88 05/04/16 13:40 Resp 20 05/04/16 04:00 BP 120/70 05/04/16 06:20 Pulse Ox 93 L 05/04/16 04:00 Intake & Output 05/03/16 05/04/16 05/04/16 18:59 06:59 18:59 Intake Total 520.437 253.447 0 Output Total 920 950 980 Balance -399.563 -696.553 -980 Weight 115.5 kg 115.5 kg Intake: IV 300 Sodium Chloride 0.45% 1, 300 000 ml @ 100 mls/hr IV . Q10H [facility] Rx#:[id number] Oral 120 0 Other 100.437 253.447 Output: Urine 920 950 980 Other: Voiding Method Indwelling Catheter Indwelling Catheter # Bowel Movements 2 - Exam PHYSICAL EXAMINATION: HEENT: Head is atraumatic, normocephalic. Pupils equal, round. Neck is supple. There is no elevated jugular venous pressure. HEART EXAMINATION: Heart S1, S2 normal. No murmur or gallop heard. CHEST EXAMINATION: Lungs reveal diminished air entry bilaterally. ABDOMEN: Soft, nontender. Mild distention noted. Bowel sounds are heard. No organomegaly noted. NG tube in place EXTREMITIES: 2+ peripheral pulses with 1+ evidence of peripheral edema and no calf tenderness noted. NEUROLOGIC patient is awake, alert and oriented -3. . - Labs CBC & Chem 7: 05/03/16 02:43 05/04/16 05:52 Labs: Abnormal Lab Results - Last 24 Hours (Table) 05/03/16 05/03/16 05/04/16 Range/Units 17:01 23:53 05:52 PT 64.1 H (9.0-12.0) sec INR 6.3 H* (<1.1) APTT 89.5 H (22.0-30.0) sec Sodium (137-145) mmol/L Potassium (3.5-5.1) mmol/L Chloride (98-107) mmol/L BUN (9-20) mg/dL Creatinine (0.66-1.25) mg/dL Glucose (74-99) mg/dL POC Glucose (mg/dL) 136 H 176 H (75-99) mg/dL 05/04/16 05/04/16 05/04/16 Range/Units 05:52 06:41 11:51 PT (9.0-12.0) sec INR (<1.1) APTT (22.0-30.0) sec Sodium 146 H (137-145) mmol/L Potassium 2.9 L* (3.5-5.1) mmol/L Chloride 108 H (98-107) mmol/L BUN 70 H (9-20) mg/dL Creatinine 1.97 H (0.66-1.25) mg/dL Glucose 133 H (74-99) mg/dL POC Glucose (mg/dL) 164 H 111 H (75-99) mg/dL Microbiology - Last 24 Hours (Table) 04/28/16 22:00 Blood Culture - Preliminary Blood No Growth after 120 hours 04/28/16 12:15 Blood Culture - Preliminary Blood No Growth after 120 hours Assessment and Plan (1) HTN (hypertension) Status: Acute (2) Diabetes Status: Acute (3) Hyperlipemia Status: Acute (4) Deep venous thrombosis Status: Acute (5) Epigastric pain Status: Acute (6) Pancreatitis Status: Acute (7) Paraplegia Status: Acute (8) Pulmonary embolism Status: Acute Plan: Cardiology's perspective, we will continue to hold Coumadin. Patient will also receive the next dose of IV Lasix today. We will continue current dose of Isoptin. DNP note has been reviewed, I agree with a documented findings and plan of care. Patient was seen and examined.
[2016-05-04 15:42] LABS: Calcium 7.9 mg/dL (8.4-10.2); Potassium 3.4 mmol/L (3.5-5.1)
--- NOTE | 2016-05-04 16:30 | P.PN ---
Subjective Principal diagnosis: ANAI with Acute pancreatitis Patient is a 56-year-old male being evaluated for acute pancreatitis with history of EtOH abuse. Patient complains of left upper quadrant abdominal pain but states it's the same as yesterday. Denies nausea or vomiting. Afebrile. Patient currently on 60% BiPAP. Objective - Vital Signs Vital signs: Vital Signs Temp 98.0 F 05/04/16 12:00 Pulse 88 05/04/16 13:40 Resp 22 05/04/16 12:00 BP 138/58 05/04/16 12:00 Pulse Ox 99 05/04/16 12:00 Intake & Output 05/03/16 05/04/16 05/04/16 18:59 06:59 18:59 Intake Total 520.437 253.447 0 Output Total 920 950 980 Balance -399.563 -696.553 -980 Weight 115.5 kg 115.5 kg Intake: IV 300 Sodium Chloride 0.45% 1, 300 000 ml @ 100 mls/hr IV . Q10H [facility] Rx#:[id number] Oral 120 0 Other 100.437 253.447 Output: Urine 920 950 980 Other: Voiding Method Indwelling Catheter Indwelling Catheter Indwelling Catheter # Bowel Movements 2 - Exam GENERAL: Pt awake and alert, appears in no apparent distress. EYES:Sclera anicteric, conjunctiva are normal. LUNGS: Breath sounds diminished to auscultation bilaterally. HEART: Heart S1, S2, no S3 or S4. No murmurs, rubs or gallops. ABDOMEN: Soft, obese, mild epigastric and left upper quadrant tenderness, distended, active bowel sounds. NEUROLOGICAL: Pt oriented x 3. - Labs CBC & Chem 7: 05/03/16 02:43 05/04/16 14:47 Labs: Abnormal Lab Results - Last 24 Hours (Table) 05/03/16 05/03/16 05/04/16 Range/Units 17:01 23:53 05:52 PT 64.1 H (9.0-12.0) sec INR 6.3 H* (<1.1) APTT 89.5 H (22.0-30.0) sec Sodium (137-145) mmol/L Potassium (3.5-5.1) mmol/L Chloride (98-107) mmol/L BUN (9-20) mg/dL Creatinine (0.66-1.25) mg/dL Glucose (74-99) mg/dL POC Glucose (mg/dL) 136 H 176 H (75-99) mg/dL Calcium (8.4-10.2) mg/dL 05/04/16 05/04/16 05/04/16 Range/Units 05:52 06:41 11:51 PT (9.0-12.0) sec INR (<1.1) APTT (22.0-30.0) sec Sodium 146 H (137-145) mmol/L Potassium 2.9 L* (3.5-5.1) mmol/L Chloride 108 H (98-107) mmol/L BUN 70 H (9-20) mg/dL Creatinine 1.97 H (0.66-1.25) mg/dL Glucose 133 H (74-99) mg/dL POC Glucose (mg/dL) 164 H 111 H (75-99) mg/dL Calcium (8.4-10.2) mg/dL 05/04/16 Range/Units 14:47 PT (9.0-12.0) sec INR (<1.1) APTT (22.0-30.0) sec Sodium (137-145) mmol/L Potassium 3.4 L (3.5-5.1) mmol/L Chloride (98-107) mmol/L BUN 67 H (9-20) mg/dL Creatinine 1.80 H (0.66-1.25) mg/dL Glucose 116 H (74-99) mg/dL POC Glucose (mg/dL) (75-99) mg/dL Calcium 7.9 L (8.4-10.2) mg/dL Microbiology - Last 24 Hours (Table) 04/28/16 22:00 Blood Culture - Preliminary Blood No Growth after 120 hours 04/28/16 12:15 Blood Culture - Preliminary Blood No Growth after 120 hours Assessment and Plan Plan: Impression: 1. Acute pancreatitis. 2. Ventral hernia containing fat only per computed tomography scan. Plan: 1. Continue to monitor patient. Continue diet per GI. Continue IV hydration. Continue supportive treatment and pain management. Continue to follow with primary service and consultants. Patient is not a surgical candidate at this time. The above impression and plan have been discussed and directed by Dr. Murry. Dayana VICENTE acting as scribe for Dr. Murry.
[2016-05-04 16:56] LABS: Glucose,Whole Blood 136 mg/dL (75-99)
[2016-05-04] MEDS: ASPIRIN 325 MG TAB PO SCH (18:02)
[2016-05-04] MEDS: levETIRAcetam 500 MG TAB PO SCH ×2 (18:02→18:03)
[2016-05-04] MEDS: ALLOPURINOL 100 MG TAB PO SCH (18:02)
[2016-05-04] MEDS: CALCIUM CARB-VIT D 500MG-200UN 1 EACH TAB PO SCH ×2 (18:02→22:44)
[2016-05-04] MEDS: VERAPAMIL 40 MG TAB PO SCH ×2 (18:03→22:44)
[2016-05-04] MEDS: VENLAFAXINE HCL ER 150 MG CAP PO SCH (18:03)
[2016-05-04] MEDS: FOLIC ACID 1 MG TAB PO SCH (18:03)
[2016-05-04] MEDS: FERROUS SULFATE 325 MG TAB PO SCH (18:03)
[2016-05-04] MEDS: HEPARIN SODIUM,PORCINE/D5W PMX 25,000 UNIT in DEXTROSE/WATER 1 500ML.BAG IV SCH (18:07)
[2016-05-04 18:57] LABS: Glucose,Whole Blood 150 mg/dL (75-99)
--- NOTE | 2016-05-04 19:49 | P.PN ---
Subjective Principal diagnosis: Acute pancreatitis with respiratory failure This is a 56-year-old male who has a past mental history is significant for cerebral aneurysm leading to paraplegia. Patient is known to ID service as he was seen in May 2015 at which time he was treated for cellulitis of the right lower extremity. At that time he underwent duplex study that was negative for DVT, x-ray that showed potential for abscess and CAT scan of the lower extremity was done that failed to reveal an abscess and was negative for osteomyelitis. He was treated with local wound care with Silvadene and he was discharged on oral Bactrim. Patient currently resides at [facility]. He states he had a sudden onset of chest pain on the left side while he was watching TV. It was sharp with a 5 out of 10 with mild shortness of breath. Patient was transferred to [facility] where he received 4 baby aspirin and 3 nitroglycerin that did not change his pain. His d -dimer was slightly elevated at 0.73. BUN was 26 and creatinine 1.8. It appears patient's baseline creatinine is 1.5-1.7. He was afebrile. Troponin was 0.017. He was given 1 L of IV fluids and there was concern for pulmonary embolism and patient was transferred to [facility] for VQ scan. Patient was admitted to the selective care unit. Unfortunately he was unable to complete the VQ scan. However, venous Dopplers of the bilateral lower extremities were positive on both sides. He underwent a chest x-ray that showed left lower lobe atelectasis or infiltrate and cardiomegaly. CAT scan of the abdomen and pelvis revealed acute pancreatitis. He subsequently underwent x -ray films that showed possible obstruction or ileus. Patient's last bowel movement was apparently 2 days ago. Repeat lab work showed leukocytosis of 16.4 , lactic acid 2.4 and BUN 43 with creatinine 3.5. Albumin 3.2. Potassium was 6.06 and he is status post Kayexalate. His heart rate has been running 120-130 since admission. He has the following consultations in place cardiology, pulmonary medicine, nephrology, surgery. Amylase was 632 and lipase 13,509. Patient continues to have left upper quadrant lower rib pain. He does complain of nausea without vomiting. He denies any diarrhea. He denies any cough or sputum reduction. He states he has shortness of breath all the time and he normally has rapid respirations per the patient area he denies any problems with his legs that he is aware of. He is incontinent of urine. Seems to be slightly improved today. More awake and alert. Knows that he is Ruchi Marin. Was able to state my name. Abdominal pains improved." Bowel movements occurred. diarrheas improved and not thought to have C. diff. Respiratory status has remained a significant difficulty. He is now been on BiPAP consistently. In the BiPAP was required increasing amounts of settings to maintain a saturation. Because he is being transferred intensive care unit at this time. For ongoing pulmonary management. Acute lung injury from his pancreatitis appears to be occurring. Objective - Vital Signs Vital signs: Vital Signs Temp 96.9 F L 05/04/16 16:00 Pulse 121 H 05/04/16 19:41 Resp 18 05/04/16 16:00 BP 124/68 05/04/16 16:00 Pulse Ox 96 05/04/16 16:00 Intake & Output 05/04/16 05/04/16 05/05/16 06:59 18:59 06:59 Intake Total 501.143 0975 Output Total 950 1930 Balance -696.553 -890 Weight 115.5 kg 115.5 kg Intake: IV 1000 Heparin Sodium,Porcine/ 0 D5w Pmx 25,000 unit In Dextrose/Water 1 500ml. bag @ 18 UNITS/KG/HR 38. 52 mls/hr IV .[id number] LUIS MANUEL Rx#:[id number] Potassium Chloride 10 meq 500 Lidocaine 2% Inj 10 mg In Sodium Chloride 0.9% 100 ml @ 100 mls/hr IVPB Q1HR LUIS MANUEL Rx#:[id number] Sodium Chloride 0.45% 1, 500 000 ml @ 100 mls/hr IV . Q10H LUIS MANUEL Rx#:[id number] Oral 40 Other 253.447 Output: Urine 950 1930 Other: Voiding Method Indwelling Catheter Indwelling Catheter - Exam Gen: This is a obese 56-year-old male. He is laying in bed BiPAP is in place. He is comfortable but easily agitated HEENT: Head is atraumatic, normocephalic. Pupils equal, round. Sclerae is anicteric. Conjunctiva pink. Mucous membranes of the mouth are moist. No thrush noted. NECK: Supple. No JVD. No lymphadenopathy. No thyromegaly. LUNGS: Symmetrical air entry is noted. There are basilar crackles. Few expiratory wheezes are heard. No phillip bronchial sounds are noted. Egophony could not be evaluated HEART: Regular rate and rhythm. No murmur. ABDOMEN: Slightly distended. Bowel sounds are present. Generalized tenderness to the entire abdomen less tender to the left upper quadrant today. EXTREMITIES: Trace bilateral pedal edema. No erythema or wounds noted to the bilateral lower extremities NEUROLOGICAL: Patient is quite sleepy today - Labs CBC & Chem 7: 05/03/16 02:43 05/04/16 14:47 Labs: Abnormal Lab Results - Last 24 Hours (Table) 05/03/16 05/04/16 05/04/16 Range/Units 23:53 05:52 05:52 PT 64.1 H (9.0-12.0) sec INR 6.3 H* (<1.1) APTT 89.5 H (22.0-30.0) sec Sodium 146 H (137-145) mmol/L Potassium 2.9 L* (3.5-5.1) mmol/L Chloride 108 H (98-107) mmol/L BUN 70 H (9-20) mg/dL Creatinine 1.97 H (0.66-1.25) mg/dL Glucose 133 H (74-99) mg/dL POC Glucose (mg/dL) 176 H (75-99) mg/dL Calcium (8.4-10.2) mg/dL 05/04/16 05/04/16 05/04/16 Range/Units 06:41 11:51 14:47 PT (9.0-12.0) sec INR (<1.1) APTT (22.0-30.0) sec Sodium (137-145) mmol/L Potassium 3.4 L (3.5-5.1) mmol/L Chloride (98-107) mmol/L BUN 67 H (9-20) mg/dL Creatinine 1.80 H (0.66-1.25) mg/dL Glucose 116 H (74-99) mg/dL POC Glucose (mg/dL) 164 H 111 H (75-99) mg/dL Calcium 7.9 L (8.4-10.2) mg/dL 05/04/16 05/04/16 Range/Units 16:53 18:52 PT (9.0-12.0) sec INR (<1.1) APTT (22.0-30.0) sec Sodium (137-145) mmol/L Potassium (3.5-5.1) mmol/L Chloride (98-107) mmol/L BUN (9-20) mg/dL Creatinine (0.66-1.25) mg/dL Glucose (74-99) mg/dL POC Glucose (mg/dL) 136 H 150 H (75-99) mg/dL Calcium (8.4-10.2) mg/dL Microbiology - Last 24 Hours (Table) 04/28/16 22:00 Blood Culture - Preliminary Blood No Growth after 120 hours 04/28/16 12:15 Blood Culture - Preliminary Blood No Growth after 120 hours Laboratory Results WBC 5.1 k/uL (3.8-10.6) 05/03/16 02:43 RBC 2.86 m/uL (4.30-5.90) L 05/03/16 02:43 Hgb 9.4 gm/dL (13.0-17.5) L 05/03/16 02:43 Hct 32.0 % (39.0-53.0) L 05/03/16 02:43 MCV 112.0 fL (80.0-100.0) H 05/03/16 02:43 MCH 32.9 pg (25.0-35.0) 05/03/16 02:43 MCHC 29.4 g/dL (31.0-37.0) L 05/03/16 02:43 RDW 14.8 % (11.5-15.5) 05/03/16 02:43 Plt Count 165 k/uL (150-450) 05/03/16 02:43 Neutrophils % 85 % 04/27/16 10:33 Neutrophils % (Manual) 46.0 % 05/03/16 02:43 Band Neutrophils % 30.5 % 05/03/16 02:43 Lymphocytes % 6 % 04/27/16 10:33 Lymphocytes % (Manual) 16.5 % 05/03/16 02:43 Monocytes % 7 % 04/27/16 10:33 Monocytes % (Manual) 6.0 % 05/03/16 02:43 Eosinophils % 1 % 04/27/16 10:33 Eosinophils % (Manual) 0.5 % 05/01/16 05:40 Basophils % 0 % 04/27/16 10:33 Metamyelocytes % 1.0 % 05/03/16 02:43 Myelocytes % 0.5 % 04/30/16 05:38 Neutrophils # 8.6 k/uL (1.3-7.7) H 04/27/16 10:33 Neutrophils # (Manual) 3.9 k/uL (1.3-7.7) 05/03/16 02:43 Lymphocytes # 0.6 k/uL (1.0-4.8) L 04/27/16 10:33 Lymphocytes # (Manual) 0.8 k/uL (1.0-4.8) L 05/03/16 02:43 Monocytes # 0.7 k/uL (0-1.0) 04/27/16 10:33 Monocytes # (Manual) 0.3 k/uL (0-1.0) 05/03/16 02:43 Eosinophils # 0.1 k/uL (0-0.7) 04/27/16 10:33 Eosinophils # (Manual) 0.0 k/uL (0-0.7) 05/01/16 05:40 Basophils # 0.0 k/uL (0-0.2) 04/27/16 10:33 Nucleated RBCs 1 /100 WBC (0-0) H 05/03/16 02:43 Manual Slide Review Performed 04/30/16 05:38 Toxic Granulation Present 04/29/16 05:42 Toxic Vacuolation Present 04/29/16 05:42 Large Platelets Present 05/03/16 02:43 Polychromasia Present 05/03/16 02:43 Hypochromasia Marked 05/03/16 02:43 Poikilocytosis (manual Present 05/03/16 02:43 Anisocytosis (manual) Present 05/03/16 02:43 Macrocytosis Marked 05/03/16 02:43 PT 64.1 sec (9.0-12.0) H 05/04/16 05:52 INR 6.3 (<1.1) H* 05/04/16 05:52 APTT 89.5 sec (22.0-30.0) H 05/04/16 05:52 D-Dimer 2.06 mg/L FEU (<0.60) H 04/27/16 10:33 Sample Site RRAD 05/03/16 13:00 ABG pH 7.42 (7.35-7.45) 05/03/16 13:00 ABG pCO2 34 mmHg (35-45) L 05/03/16 13:00 ABG pO2 68 mmHg (83-108) L 05/03/16 13:00 ABG HCO3 22 mmol/L (21-25) 05/03/16 13:00 ABG Total CO2 23 mmol/L (19-24) 05/03/16 13:00 ABG O2 Saturation 93.9 % (94-97) L 05/03/16 13:00 ABG Base Excess -2.1 mmol/L 05/03/16 13:00 FiO2 70 % 05/03/16 13:00 Sodium 145 mmol/L (137-145) 05/04/16 14:47 Potassium 3.4 mmol/L (3.5-5.1) L 05/04/16 14:47 Chloride 107 mmol/L (98-107) 05/04/16 14:47 Carbon Dioxide 24 mmol/L (22-30) 05/04/16 14:47 Anion Gap 14 mmol/L 05/04/16 14:47 BUN 67 mg/dL (9-20) H 05/04/16 14:47 Creatinine 1.80 mg/dL (0.66-1.25) H 05/04/16 14:47 Est GFR (MDRD) Af Amer 47 (>60 ml/min/1.73 sqM) 05/04/16 14:47 Est GFR (MDRD) Non-Af 39 (>60 ml/min/1.73 sqM) 05/04/16 14:47 Glucose 116 mg/dL (74-99) H 05/04/16 14:47 POC Glucose (mg/dL) 150 mg/dL (75-99) H 05/04/16 18:52 POC Glu Health Outcomes Liaison ID Lorene Keane 05/04/16 18:[address] Glu mg/dL 151 mg/dL 04/28/16 10:44 Hemoglobin A1c 6.9 % (4.2-6.1) H 04/28/16 10:44 Plasma Lactic Acid [place] 2.1 mmol/L (0.7-2.0) H 04/28/16 15:00 Calcium 7.9 mg/dL (8.4-10.2) L 05/04/16 14:47 Phosphorus 5.8 mg/dL (2.5-4.5) H 05/01/16 05:40 Magnesium 2.3 mg/dL (1.6-2.3) 05/04/16 05:52 Total Bilirubin 0.6 mg/dL (0.2-1.3) 05/03/16 02:43 AST 31 U/L (17-59) 05/03/16 02:43 ALT 29 U/L (21-72) 05/03/16 02:43 Alkaline Phosphatase 37 U/L (38-126) L 05/03/16 02:43 Total Creatine Kinase 64 U/L (55-170) 04/27/16 16:08 CK-MB (CK-2) 0.5 ng/mL (0.0-2.4) 04/27/16 16:08 CK-MB (CK-2) Rel Index 0.8 04/27/16 16:08 Troponin I <0.012 ng/mL (0.000-0.034) 04/27/16 16:08 NT-Pro-B Natriuret Pep 7950 pg/mL 05/03/16 02:43 Total Protein 5.0 g/dL (6.3-8.2) L 05/03/16 02:43 Albumin 2.3 g/dL (3.5-5.0) L 05/03/16 02:43 Triglycerides 235 mg/dL (<150) H 04/28/16 06:08 Cholesterol 120 mg/dL (<200) 04/28/16 06:08 LDL Cholesterol, Calc 46 mg/dL (0-99) 04/28/16 06:08 HDL Cholesterol 27 mg/dL (40-60) L 04/28/16 06:08 Amylase <30 U/L (30-110) L 05/03/16 02:43 Lipase 317 U/L (23-300) H 05/03/16 02:43 Urine Color Yellow 04/28/16 18:40 Urine Appearance Cloudy (Clear) 04/28/16 18:40 Urine pH 5.5 (5.0-8.0) 04/28/16 18:40 Ur Specific [place] 1.018 (1.001-1.035) 04/28/16 18:40 Urine Protein 2+ (Negative) H 04/28/16 18:40 Urine Glucose (UA) Trace (Negative) H 04/28/16 18:40 Urine Ketones Trace (Negative) H 04/28/16 18:40 Urine Blood Negative (Negative) 04/28/16 18:40 Urine Nitrate Negative (Negative) 04/28/16 18:40 Urine Bilirubin Negative (Negative) 04/28/16 18:40 Urine Urobilinogen <2.0 mg/dL (<2.0) 04/28/16 18:40 Ur Leukocyte Esterase Small (Negative) H 04/28/16 18:40 Urine WBC 26 /hpf (0-5) H 04/28/16 18:40 Amorphous Sediment Occasional /hpf (None) H 04/28/16 18:40 Hyaline Casts 22 /lpf (0-2) H 04/28/16 18:40 Granular Casts 19 /lpf (0) 04/28/16 18:40 Urine Mucus Rare /hpf (None) H 04/28/16 18:40 Hepatitis A IgM Ab NEGATIVE 04/28/16 21:50 Hep Bs Antigen Negative 04/28/16 21:50 Hep B Core IgM Ab NEGATIVE 04/28/16 21:50 Hep C IgG Ab Negative (Negative) 04/28/16 21:50 Microbiology 04/28/16 22:00 Blood Blood Culture - Preliminary No Growth after 120 hours 04/28/16 12:15 Blood Blood Culture - Preliminary No Growth after 120 hours 04/28/16 18:40 Urine,Catheterized Urine Culture - Final Assessment and Plan (1) Pancreatitis Narrative/Plan: 56-year-old male [facility] abdominal pain. Evidence of phillip pancreatitis. Also had lower extremity edema without evidence of bilateral lower extremities deep venous thrombosis and likely pulmonary in this. Currently being treated with an heparin drip has been seen by hematology. No evidence of any significant sepsis at this time. Antibiotic therapy was tailored to ceftriaxone. The cultures remain negative we'll continue to monitor we'll discontinue Rocephin. leukocytosis has resolved. Likely on the bases the pancreatitis. Actually white count trended down a bit low. Without infections , the antibiotic was discontinued. Patient however is now having worsening pulmonary status. Likely his acute lung injury related to his pancreatitis. Status: Acute (2) Deep venous thrombosis Status: Acute (3) Leukocytosis Status: Acute
[2016-05-04 21:12] LABS: Glucose,Whole Blood 135 mg/dL (75-99)
[2016-05-04 21:17] LABS: Calcium 8.1 mg/dL (8.4-10.2); Magnesium 2.1 mg/dL (1.6-2.3); Phosphorous 5.7 mg/dL (2.5-4.5)
[2016-05-04] MEDS: ATORVASTATIN 10 MG TAB PO SCH (22:44)
[2016-05-04] MEDS: FENOFIBRATE 160 MG TAB PO SCH (22:44)
[2016-05-04 23:04] LABS: Glucose,Whole Blood 132 mg/dL (75-99)
--- NOTE | 2016-05-04 23:06 | PN ---
DATE OF SERVICE: 05/04/2016 This 56-year-old gentleman who was admitted with abdominal pain and acute severe pancreatitis is being closely monitored at this time. The patient still has BiPAP as well as change in mental status. Multiple consultants, including Dr. Ibrahim and Surgery, are following the patient closely. The patient has also acute hypoxic hypercarbic respiratory failure. Patient is on BiPAP 14/6 and FiO2 of 60%. The patient has significant left pleural effusion and atelectasis also. Pneumonia was thought to be less likely per Dr. Ibrahim. The patient is being closely monitored. The patient also had hypocalcemia today. Past medical history reviewed. Review of systems could not be taken; the patient is confused at this time. Current medications are reviewed and include: 1. Tylenol 650 q.6 p.r.n. 2. Zyloprim 200 mg daily. 3. Aspirin 325 mg daily. 4. Lipitor 10 mg at bedtime. 5. Oscal with vitamin D. 6. Coreg 25 mg before meals twice a day. 7. Depakote 1000 mg b.i.d. 8. Depakote 1500 mg p.o. daily. 9. Vitamin D2 50,000 p.o. Wednesday. 10. Lofibra 160 mg at bedtime. 11. Iron sulfate 320 mg daily. 12. Folic acid 1 mg daily. 13. Dilaudid 0.5 mg q.4 p.r.n. 14. Lantus 60 units subcutaneously at bedtime. 15. Humalog. 16. Xopenex 1.25 t.i.d. 17. Keppra 1500 mg each morning. 18. Keppra 1000 mg p.o. daily. 19. Solu-Medrol 60 mg IV q.6. 20. Nitrostat. 21. Zofran. 22. Protonix. 23. Ultram. 24. Effexor. 25. Isoptin 40 mg p.o. daily. PHYSICAL EXAMINATION: Patient is alert and oriented x2. Pulse 83, blood pressure 124/68, respiration 18, temperature 96.9, pulse ox 96% on BiPAP. Settings are as mentioned earlier. HEENT: Conjunctivae normal. NECK: Obese. CARDIOVASCULAR SYSTEM: S1, S2 muffled. RESPIRATORY SYSTEM: Breath sounds diminished at the bases. Scattered rhonchi. ABDOMEN: Soft, obese, nontender. No guarding or regurgitation. No mass palpable. LEGS: No edema. No swelling. NERVOUS SYSTEM: No focal deficit. Labs at this time show INR 6.3. Otherwise, WBC is 5.1, hemoglobin 9.4. Potassium 3.4. ASSESSMENT: 1. Acute severe pancreatitis with possible sepsis, present on admission. 2. Acute hypoxic respiratory failure, possibly multifactorial, on BiPAP. Hypercapnic. 3. Change in mental status, metabolic encephalopathy, multifactorial. 4. Bilateral pleural effusion, left more than the right, possibly reactive. 5. Possible pneumonia, bibasilar, possibly Gram-negative. 6. Hyperlipidemia with increased triglycerides. 7. Bilateral lower leg deep venous thrombosis. 8. Intermediate VQ scan with possible pulmonary embolism. 9. Intravenous heparin monitoring. 10. Hypoalbuminemia with mild to moderate protein-calorie malnutrition. 11. Increased lactic acid on admission. 12. Acute on chronic renal failure, stage III, secondary to acute tubular necrosis, multifactorial, with prerenal factors. 13. Hyperkalemia secondary to acute tubular necrosis. 14. Leukocytosis secondary to possible sepsis. 15. Obesity with body mass index of 38.4. 16. History of coronary artery disease. 17. History of congestive heart failure; ejection fraction 60% to 65%; with chronic diastolic dysfunction. 18. History of cerebrovascular accident, transient ischemic attack. 19. 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 20. Diabetes mellitus, type 2. 21. Gastroesophageal reflux disease. 22. History of hypertension. 23. History of hypertension. 24. History of degenerative joint disease. 25. History of seizure disorder. 26. History of peripheral vascular disease. 27. History of bibasilar atelectasis. 28. History of sacral decubitus, currently staged pressure ulcer in the mid coccyx. 29. Bilateral pleural effusion. 30. Hyponatremia secondary to free water deficit. 31. Hypokalemia. 32. Chronic obstructive pulmonary disease. 33. Ventral hernia. 34. FULL CODE. RECOMMENDATIONS AND DISCUSSION: In this 56-year-old gentleman who presented with multiple complex medical issues, we will monitor the patient closely, continue the current medications, continue with symptomatic treatment with bronchodilators. Continue following fluid/electrolyte balance closely. Dr. Ibrahim is following the patient. Will discuss with closely. Dr. Ibrahim thought pneumonia is less likely. Closely follow with Infectious Disease and multiple other medical consultants. Prognosis guarded. Further recommendations to follow. Please see orders for further details. MTDD
[2016-05-05] MEDS: HYDROmorphone 1 MG/ML 1 ML SYRINGE IVP PRN ×3 (00:21→21:21)
[2016-05-05] MEDS: traMADol 50 MG TAB PO PRN ×3 (00:22→21:19)
[2016-05-05] MEDS: SODIUM CHLORIDE 0.45% 1,000 ML IV SCH (03:00)
[2016-05-05 05:07] LABS: Calcium 8.2 mg/dL (8.4-10.2); Magnesium 2.2 mg/dL (1.6-2.3); Phosphorous 5.9 mg/dL (2.5-4.5); Potassium 3.2 mmol/L (3.5-5.1)
[2016-05-05 05:22] LABS: Prothrombin Time 81.2 sec (9.0-12.0)
[2016-05-05 05:29] LABS: Basophils % (A) 0 %; CH 33.5; CHCM 31.6; Eosinophils % (A) 0 %; HDW 2.97; HGB 10.2 gm/dL (13.0-17.5); Hypochromasia Slight; Luc # (Auto) 0.07; Luc % (Auto) 1; Lymphocytes # (A) 0.6 k/uL (1.0-4.8); Lymphocytes % (A) 8 %; MCH 33.9 pg (25.0-35.0); MCHC 31.8 g/dL (31.0-37.0); Macrocytosis Moderate; Mean Platelet Volume 8.1; Monocytes # (A) 0.2 k/uL (0-1.0); Monocytes % (A) 3 %; Neutrophils % (A) 88 %; RDW 14.9 % (11.5-15.5); WBC (Perox) 8.52
[2016-05-05] MEDS ORDERED: Potassium Replacement Protocol 1 EACH MISC MISCELLANE PRN (05:32)
[2016-05-05 05:41] LABS: INR 7.8 (<1.1)
[2016-05-05 05:43] LABS: MCV 106.6 fL (80.0-100.0)
[2016-05-05] MEDS: DIVALPROEX 500 MG TABLET.DR PO SCH ×2 (06:40→17:30)
[2016-05-05] MEDS: POTASSIUM CHLORIDE ER 20 MEQ TAB.ER PO SCH ×2 (06:40→09:09)
[2016-05-05] MEDS: methylPREDNISolone SOD SUCCI 125 MG/2 ML VIAL IV SCH ×4 (06:40→23:48)
[2016-05-05] MEDS: INSULIN LISPRO (humaLOG) 300 UNIT/3 ML VIAL SQ SCH ×4 (06:51→23:49)
[2016-05-05 06:53] LABS: Glucose,Whole Blood 134 mg/dL (75-99)
[2016-05-05] MEDS: LEVALBUTEROL NEB 1.25 MG/3 ML AMP INHALATION SCH ×3 (07:31→19:47)
[2016-05-05] MEDS ORDERED: PHYTONADIONE ORAL 5 MG/5 ML ORAL.SYRG PO STA (08:27)
[2016-05-05] MEDS: CALCIUM CARB-VIT D 500MG-200UN 1 EACH TAB PO SCH ×2 (09:08→20:38)
[2016-05-05] MEDS: ALLOPURINOL 100 MG TAB PO SCH (09:08)
[2016-05-05] MEDS: CARVEDILOL 12.5 MG TAB PO SCH ×2 (09:08→17:30)
[2016-05-05] MEDS: levETIRAcetam 500 MG TAB PO SCH ×2 (09:08→17:31)
[2016-05-05] MEDS: VERAPAMIL 80 MG TAB PO SCH ×3 (09:08→21:20)
[2016-05-05] MEDS: ASPIRIN 325 MG TAB PO SCH (09:09)
[2016-05-05] MEDS: VENLAFAXINE HCL ER 150 MG CAP PO SCH (09:09)
[2016-05-05] MEDS: PANTOPRAZOLE 40 MG TABLET PO SCH (09:09)
--- NOTE | 2016-05-05 09:11 | XR ---
EXAMINATION TYPE: XR chest 1V portable DATE OF EXAM: 05/05/2016 9:03 AM Comparison: 05/04/2016 Clinical History: 56-year-old male with shortness of breath Findings: Heart remains borderline to mildly enlarged. Relative upper lung lucency suggest underlying emphysema . There appears to be increase a small left pleural effusion. Adjacent opacity is seen. Impression: 1. COPD with borderline to mild cardiomegaly. 2. Slight increased small left pleural effusion. Adjacent atelectasis and/or infiltrate.
[2016-05-05] MEDS ORDERED: POTASSIUM CHLORIDE ER 20 MEQ TAB.ER PO STA (09:30)
--- NOTE | 2016-05-05 09:39 | P.PN ---
Subjective Principal diagnosis: ANAI Patient is seen in follow-up for acute kidney injury on chronic any disease. Patient has chronic kidney disease stage III with baseline creatinine in the range of 1-1.5 secondary to diabetic kidney disease. Creatinine did peak at 4.2 this admission and is 1.9 today. He is currently resting in bed. He has a Grimes catheter in place and is nonoliguric. No vomiting or diarrhea. Denies chest pain. Patient was transferred to the intensive care unit on May 04 for respiratory distress and requiring high amounts of oxygen support. Currently on a nasal cannula. Vital signs are stable. General: The patient appeared well nourished and normally developed. HEENT: Head exam is unremarkable. Neck is without jugular venous distension. LUNGS: Lungs are clear to auscultation and percussion. Breath sounds decreased. HEART: Rate and Rhythm are regular. First and second heart sounds normal. No murmurs, rubs or gallops. ABDOMEN: Abdominal exam reveals normal bowel sounds. Non-tender and non- distended. No evidence of peritonitis. EXTREMITITES: No clubbing, cyanosis, or edema. Objective - Vital Signs Vital signs: Vital Signs Temp 97.3 F L 05/05/16 09:00 Pulse 117 H 05/05/16 08:00 Resp 26 H 05/05/16 08:00 BP 108/73 05/05/16 09:00 Pulse Ox 98 05/05/16 09:00 Intake & Output 05/04/16 05/05/16 05/05/16 18:59 06:59 18:59 Intake Total 1040 1100 300 Output Total 1930 1099 250 Balance -890 1 50 Weight 115.5 kg 115.9 kg Intake: IV 1000 1100 300 Heparin Sodium,Porcine/ 0 D5w Pmx 25,000 unit In Dextrose/Water 1 500ml. bag @ 18 UNITS/KG/HR 38. 52 mls/hr IV .[id number] LUIS MANUEL Rx#:[id number] Potassium Chloride 10 meq 500 Lidocaine 2% Inj 10 mg In Sodium Chloride 0.9% 100 ml @ 100 mls/hr IVPB Q1HR LUIS MANUEL Rx#:[id number] Sodium Chloride 0.45% 1, 500 1100 300 000 ml @ 100 mls/hr IV . Q10H LUIS MANUEL Rx#:[id number] Oral 40 Output: Urine 0 1099 250 Other: Voiding Method Indwelling Catheter Indwelling Catheter - Labs CBC & Chem 7: 05/05/16 04:36 05/05/16 04:36 Labs: Abnormal Lab Results - Last 24 Hours (Table) 05/04/16 05/04/16 05/04/16 Range/Units 11:51 14:47 16:53 RBC (4.30-5.90) m/uL Hgb (13.0-17.5) gm/dL Hct (39.0-53.0) % MCV (80.0-100.0) fL Lymphocytes # (1.0-4.8) k/uL PT (9.0-12.0) sec INR (<1.1) Potassium 3.4 L (3.5-5.1) mmol/L Chloride (98-107) mmol/L BUN 67 H (9-20) mg/dL Creatinine 1.80 H (0.66-1.25) mg/dL Glucose 116 H (74-99) mg/dL POC Glucose (mg/dL) 111 H 136 H (75-99) mg/dL Calcium 7.9 L (8.4-10.2) mg/dL Phosphorus (2.5-4.5) mg/dL 05/04/16 05/04/16 05/04/16 Range/Units 18:52 20:49 21:08 RBC (4.30-5.90) m/uL Hgb (13.0-17.5) gm/dL Hct (39.0-53.0) % MCV (80.0-100.0) fL Lymphocytes # (1.0-4.8) k/uL PT (9.0-12.0) sec INR (<1.1) Potassium (3.5-5.1) mmol/L Chloride 109 H (98-107) mmol/L BUN 71 H (9-20) mg/dL Creatinine 1.85 H (0.66-1.25) mg/dL Glucose 142 H (74-99) mg/dL POC Glucose (mg/dL) 150 H 135 H (75-99) mg/dL Calcium 8.1 L (8.4-10.2) mg/dL Phosphorus 5.7 H (2.5-4.5) mg/dL 05/04/16 05/05/16 05/05/16 Range/Units 23:02 04:36 04:36 RBC (4.30-5.90) m/uL Hgb (13.0-17.5) gm/dL Hct (39.0-53.0) % MCV (80.0-100.0) fL Lymphocytes # (1.0-4.8) k/uL PT 81.2 H (9.0-12.0) sec INR 7.8 H* (<1.1) Potassium 3.2 L (3.5-5.1) mmol/L Chloride 109 H (98-107) mmol/L BUN 71 H (9-20) mg/dL Creatinine 1.90 H (0.66-1.25) mg/dL Glucose 153 H (74-99) mg/dL POC Glucose (mg/dL) 132 H (75-99) mg/dL Calcium 8.2 L (8.4-10.2) mg/dL Phosphorus 5.9 H (2.5-4.5) mg/dL 05/05/16 05/05/16 Range/Units 04:36 06:50 RBC 3.00 L (4.30-5.90) m/uL Hgb 10.2 L (13.0-17.5) gm/dL Hct 32.0 L (39.0-53.0) % MCV 106.6 H D (80.0-100.0) fL Lymphocytes # 0.6 L (1.0-4.8) k/uL PT (9.0-12.0) sec INR (<1.1) Potassium (3.5-5.1) mmol/L Chloride (98-107) mmol/L BUN (9-20) mg/dL Creatinine (0.66-1.25) mg/dL Glucose (74-99) mg/dL POC Glucose (mg/dL) 134 H (75-99) mg/dL Calcium (8.4-10.2) mg/dL Phosphorus (2.5-4.5) mg/dL Microbiology - Last 24 Hours (Table) 04/28/16 22:00 Blood Culture - Preliminary Blood No Growth after 120 hours 04/28/16 12:15 Blood Culture - Preliminary Blood No Growth after 120 hours Assessment and Plan Plan: Assessment: #1. Nonoliguric acute kidney injury secondary to ischemic ATN secondary to pancreatitis. Renal function improving with creatinine down to 1.9 today. #2. Chronic kidney disease stage III secondary to diabetic kidney disease with baseline creatinine in the range of 1-1.5. #3. Bilateral lower extremity DVTs. #4. Hypernatremia secondary to lack of free water intake. #5. Acute pancreatitis. #6. Hypokalemia secondary to increased urinary potassium losses. Magnesium replete. #7. Atrial fibrillation. Plan: I will change IV fluids to D5W to be run at 50 mL an hour. Avoid nephrotoxic agents and hypotensive episodes. Okay to discontinue Grimes catheter. Repeat electrolytes in the morning. No need for renal replacement therapy at this time. Replace potassium. 60 mEq today.
[2016-05-05] MEDS: DEXTROSE 5% IN WATER 1,000 ML IV SCH (10:00)
[2016-05-05 10:14] LABS: ABG HCO3 20 mmol/L (21-25); ABG PCO2 34 mmHg (35-45); ABG PH 7.39 (7.35-7.45); ABG PO2 99 mmHg (83-108); ABG TCO2 21 mmol/L (19-24)
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
[2016-05-05 11:36] LABS: Glucose,Whole Blood 184 mg/dL (75-99)
[2016-05-05] MEDS: FOLIC ACID 1 MG TAB PO SCH (12:27)
--- NOTE | 2016-05-05 17:01 | PN ---
Mr. Tariq has pancreatitis, DVT and also atrial fibrillation with rapid ventricular rate. He is doing well at this time, hemodynamically stable. He had respiratory issues with CO2 retention, but this has resolved. I am recommending that we increase Verapamil for rate control and continue beta blockers. He is hemodynamically stable, resting comfortably. Blood pressure today is 130/70. S1, S2 heard normally. Irregular rate and rhythm noted. Short systolic murmur noted. Lungs reveal diminished air entry. Abdomen is soft. The rest of physical exam is unchanged. Plan is to optimize rate control, but his INR is quite elevated. He will receive vitamin K. I have suggested that we give vitamin K orally. Prognosis remains guarded. ( )
[2016-05-05] MEDS: FERROUS SULFATE 325 MG TAB PO SCH (17:30)
[2016-05-05 17:33] LABS: Glucose,Whole Blood 239 mg/dL (75-99)
--- NOTE | 2016-05-05 18:46 | P.PN ---
Subjective Patient is a 56-year-old male being evaluated for acute pancreatitis with history of EtOH abuse. Patient complains of mid epigastric abdominal pain slightly worse than yesterday. Denies nausea or vomiting. Passing flatus with last bowel movement yesterday. Afebrile. Patient currently on off Bipap tolerating 15 liters high flow nasal cannula. Objective - Vital Signs Vital signs: Vital Signs Temp 97.6 F 05/05/16 12:00 Pulse 104 H 05/05/16 18:00 Resp 19 05/05/16 18:00 BP 118/68 05/05/16 18:00 Pulse Ox 94 L 05/05/16 18:00 Intake & Output 05/04/16 05/05/16 05/05/16 18:59 06:59 18:59 Intake Total 1040 1100 800 Output Total 1930 1099 890 Balance -890 1 -90 Weight 115.5 kg 115.9 kg 115.9 kg Intake: IV 1000 1100 800 Dextrose 5% in Water 1, 400 000 ml @ 50 mls/hr IV . Q20H [facility] Rx#:[id number] Heparin Sodium,Porcine/ 0 D5w Pmx 25,000 unit In Dextrose/Water 1 500ml. bag @ 18 UNITS/KG/HR 38. 52 mls/hr IV .[id number] [facility]IS MANUEL Rx#:[id number] Potassium Chloride 10 meq 500 Lidocaine 2% Inj 10 mg In Sodium Chloride 0.9% 100 ml @ 100 mls/hr IVPB Q1HR [facility] Rx#:[id number] Sodium Chloride 0.45% 1, 500 1100 400 000 ml @ 100 mls/hr IV . Q10H [facility]IS MANUEL Rx#:[id number] Oral 40 Output: Urine 1930 1099 890 Other: Voiding Method Indwelling Catheter Indwelling Catheter Indwelling Catheter # Voids 1 - Exam GENERAL: Pt awake and alert, appears in no apparent distress. EYES:Sclera anicteric, conjunctiva are normal. LUNGS: Breath sounds diminished to auscultation bilaterally. HEART: Heart S1, S2, no S3 or S4. No murmurs, rubs or gallops. ABDOMEN: Soft, obese, moderate epigastric and left upper quadrant tenderness, distended, active bowel sounds. NEUROLOGICAL: Pt oriented x 3. - Labs CBC & Chem 7: 05/05/16 04:36 12/20/16 04:36 Labs: Abnormal Lab Results - Last 24 Hours (Table) 05/04/16 05/04/16 05/04/16 Range/Units 18:52 20:49 21:08 RBC (4.30-5.90) m/uL Hgb (13.0-17.5) gm/dL Hct (39.0-53.0) % MCV (80.0-100.0) fL Lymphocytes # (1.0-4.8) k/uL PT (9.0-12.0) sec INR (<1.1) ABG pCO2 (35-45) mmHg ABG HCO3 (21-25) mmol/L ABG O2 Saturation (94-97) % Potassium (3.5-5.1) mmol/L Chloride 109 H (98-107) mmol/L BUN 71 H (9-20) mg/dL Creatinine 1.85 H (0.66-1.25) mg/dL Glucose 142 H (74-99) mg/dL POC Glucose (mg/dL) 150 H 135 H (75-99) mg/dL Calcium 8.1 L (8.4-10.2) mg/dL Phosphorus 5.7 H (2.5-4.5) mg/dL 05/04/16 05/05/16 05/05/16 Range/Units 23:02 04:36 04:36 RBC (4.30-5.90) m/uL Hgb (13.0-17.5) gm/dL Hct (39.0-53.0) % MCV (80.0-100.0) fL Lymphocytes # (1.0-4.8) k/uL PT 81.2 H (9.0-12.0) sec INR 7.8 H* (<1.1) ABG pCO2 (35-45) mmHg ABG HCO3 (21-25) mmol/L ABG O2 Saturation (94-97) % Potassium 3.2 L (3.5-5.1) mmol/L Chloride 109 H (98-107) mmol/L BUN 71 H (9-20) mg/dL Creatinine 1.90 H (0.66-1.25) mg/dL Glucose 153 H (74-99) mg/dL POC Glucose (mg/dL) 132 H (75-99) mg/dL Calcium 8.2 L (8.4-10.2) mg/dL Phosphorus 5.9 H (2.5-4.5) mg/dL 05/05/16 05/05/16 05/05/16 Range/Units 04:36 06:50 10:04 RBC 3.00 L (4.30-5.90) m/uL Hgb 10.2 L (13.0-17.5) gm/dL Hct 32.0 L (39.0-53.0) % MCV 106.6 H D (80.0-100.0) fL Lymphocytes # 0.6 L (1.0-4.8) k/uL PT (9.0-12.0) sec INR (<1.1) ABG pCO2 34 L (35-45) mmHg ABG HCO3 20 L (21-25) mmol/L ABG O2 Saturation 98.0 H (94-97) % Potassium (3.5-5.1) mmol/L Chloride (98-107) mmol/L BUN (9-20) mg/dL Creatinine (0.66-1.25) mg/dL Glucose (74-99) mg/dL POC Glucose (mg/dL) 134 H (75-99) mg/dL Calcium (8.4-10.2) mg/dL Phosphorus (2.5-4.5) mg/dL 05/05/16 05/05/16 Range/Units 11:33 17:29 RBC (4.30-5.90) m/uL Hgb (13.0-17.5) gm/dL Hct (39.0-53.0) % MCV (80.0-100.0) fL Lymphocytes # (1.0-4.8) k/uL PT (9.0-12.0) sec INR (<1.1) ABG pCO2 (35-45) mmHg ABG HCO3 (21-25) mmol/L ABG O2 Saturation (94-97) % Potassium (3.5-5.1) mmol/L Chloride (98-107) mmol/L BUN (9-20) mg/dL Creatinine (0.66-1.25) mg/dL Glucose (74-99) mg/dL POC Glucose (mg/dL) 184 H 239 H (75-99) mg/dL Calcium (8.4-10.2) mg/dL Phosphorus (2.5-4.5) mg/dL Microbiology - Last 24 Hours (Table) 04/28/16 22:00 Blood Culture - Final Blood No Growth after 144 hours 04/28/16 12:15 Blood Culture - Final Blood No Growth after 144 hours Assessment and Plan Plan: Impression: 1. Acute pancreatitis, improved. 2. Ventral hernia containing fat only. Plan: 1. Continue to monitor patient. Continue diet per GI. Continue IV hydration. Continue supportive treatment and pain management. Continue to follow with primary service and consultants. Patient is not a surgical candidate at this time. The above impression and plan have been discussed and directed by Dr. Murry. Dayana VICENTE acting as scribe for Dr. Murry.
[2016-05-05 20:35] LABS: Glucose,Whole Blood 270 mg/dL (75-99)
[2016-05-05] MEDS: ATORVASTATIN 10 MG TAB PO SCH (20:38)
[2016-05-05] MEDS: FENOFIBRATE 160 MG TAB PO SCH (20:38)
[2016-05-05] MEDS: INSULIN GLARGINE 100 UNIT/ML 10 ML VIAL SQ SCH (20:46)
--- NOTE | 2016-05-05 21:33 | P.PN ---
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 Patient is known to ID service as he was seen in May 2015 at which time he was treated for cellulitis of the right lower extremity. At that time he underwent duplex study that was negative for DVT, x-ray that showed potential for abscess and CAT scan of the lower extremity was done that failed to reveal an abscess and was negative for osteomyelitis. He was treated with local wound care with Silvadene and he was discharged on oral Bactrim. Patient currently resides at [facility]. He states he had a sudden onset of chest pain on the left side while he was watching TV. It was sharp with a 5 out of 10 with mild shortness of breath. Patient was transferred to [facility] where he received 4 baby aspirin and 3 nitroglycerin that did not change his pain. His d -dimer was slightly elevated at 0.73. BUN was 26 and creatinine 1.8. It appears patient's baseline creatinine is 1.5-1.7. He was afebrile. Troponin was 0.017. He was given 1 L of IV fluids and there was concern for pulmonary embolism and patient was transferred to [facility] for VQ scan. Patient was admitted to the selective care unit. Unfortunately he was unable to complete the VQ scan. However, venous Dopplers of the bilateral lower extremities were positive on both sides. He underwent a chest x-ray that showed left lower lobe atelectasis or infiltrate and cardiomegaly. CAT scan of the abdomen and pelvis revealed acute pancreatitis. He subsequently underwent x -ray films that showed possible obstruction or ileus. Patient's last bowel movement was apparently 2 days ago. Repeat lab work showed leukocytosis of 16.4 , lactic acid 2.4 and BUN 43 with creatinine 3.5. Albumin 3.2. Potassium was 6.06 and he is status post Kayexalate. His heart rate has been running 120-130 since admission. He has the following consultations in place cardiology, pulmonary medicine, nephrology, surgery. Amylase was 632 and lipase 13,509. Patient continues to have left upper quadrant lower rib pain. He does complain of nausea without vomiting. He denies any diarrhea. He denies any cough or sputum reduction. He states he has shortness of breath all the time and he normally has rapid respirations per the patient area he denies any problems with his legs that he is aware of. He is incontinent of urine. Seems to be slightly improved today. More awake and alert. Knows that he is Ruchi Marin. Was able to state my name. Abdominal pains improved." Bowel movements occurred. diarrheas improved and not thought to have C. diff. Respiratory status has remained a significant difficulty. He is now been on BiPAP consistently. In the BiPAP was required increasing amounts of settings to maintain a saturation. Because he is being transferred intensive care unit at this time. For ongoing pulmonary management. Acute lung injury from his pancreatitis appears to be occurring. He is now off of BiPAP and is feeling slightly better. Objective - Vital Signs Vital signs: Vital Signs Temp 97.6 F 05/05/16 12:00 Pulse 124 H 05/05/16 20:02 Resp 34 H 05/05/16 19:00 BP 122/86 05/05/16 19:00 Pulse Ox 96 05/05/16 19:00 Intake & Output 05/05/16 05/05/16 05/06/16 06:59 18:59 06:59 Intake Total 1100 800 50 Output Total 1099 890 100 Balance 1 -90 -50 Weight 115.9 kg 115.9 kg Intake: IV 1100 800 50 Dextrose 5% in Water 1, 400 50 000 ml @ 50 mls/hr IV . Q20H LUIS MANUEL Rx#:[id number] Sodium Chloride 0.45% 1, 1100 400 000 ml @ 100 mls/hr IV . Q10H LUIS MANUEL Rx#:[id number] Output: Urine 1099 890 100 Other: Voiding Method Indwelling Catheter Indwelling Catheter # Voids 1 - Exam Gen: This is a obese 56-year-old male. He is laying in bed BiPAP is in place. He is comfortable but easily agitated HEENT: Head is atraumatic, normocephalic. Pupils equal, round. Sclerae is anicteric. Conjunctiva pink. Mucous membranes of the mouth are moist. No thrush noted. NECK: Supple. No JVD. No lymphadenopathy. No thyromegaly. LUNGS: Symmetrical air entry is noted. There are basilar crackles. Few expiratory wheezes are heard. No phillip bronchial sounds are noted. Egophony could not be evaluated HEART: Regular rate and rhythm. No murmur. ABDOMEN: Slightly distended. Bowel sounds are present. Generalized tenderness to the entire abdomen less tender to the left upper quadrant today. EXTREMITIES: Trace bilateral pedal edema. No erythema or wounds noted to the bilateral lower extremities NEUROLOGICAL: Patient is awake and alert interactive feeling better - Labs CBC & Chem 7: 05/05/16 04:36 05/05/16 04:36 Labs: Abnormal Lab Results - Last 24 Hours (Table) 05/04/16 05/05/16 05/05/16 Range/Units 23:02 04:36 04:36 RBC (4.30-5.90) m/uL Hgb (13.0-17.5) gm/dL Hct (39.0-53.0) % MCV (80.0-100.0) fL Lymphocytes # (1.0-4.8) k/uL PT 81.2 H (9.0-12.0) sec INR 7.8 H* (<1.1) ABG pCO2 (35-45) mmHg ABG HCO3 (21-25) mmol/L ABG O2 Saturation (94-97) % Potassium 3.2 L (3.5-5.1) mmol/L Chloride 109 H (98-107) mmol/L BUN 71 H (9-20) mg/dL Creatinine 1.90 H (0.66-1.25) mg/dL Glucose 153 H (74-99) mg/dL POC Glucose (mg/dL) 132 H (75-99) mg/dL Calcium 8.2 L (8.4-10.2) mg/dL Phosphorus 5.9 H (2.5-4.5) mg/dL 05/05/16 05/05/16 05/05/16 Range/Units 04:36 06:50 10:04 RBC 3.00 L (4.30-5.90) m/uL Hgb 10.2 L (13.0-17.5) gm/dL Hct 32.0 L (39.0-53.0) % MCV 106.6 H D (80.0-100.0) fL Lymphocytes # 0.6 L (1.0-4.8) k/uL PT (9.0-12.0) sec INR (<1.1) ABG pCO2 34 L (35-45) mmHg ABG HCO3 20 L (21-25) mmol/L ABG O2 Saturation 98.0 H (94-97) % Potassium (3.5-5.1) mmol/L Chloride (98-107) mmol/L BUN (9-20) mg/dL Creatinine (0.66-1.25) mg/dL Glucose (74-99) mg/dL POC Glucose (mg/dL) 134 H (75-99) mg/dL Calcium (8.4-10.2) mg/dL Phosphorus (2.5-4.5) mg/dL 05/05/16 05/05/16 05/05/16 Range/Units 11:33 17:29 20:33 RBC (4.30-5.90) m/uL Hgb (13.0-17.5) gm/dL Hct (39.0-53.0) % MCV (80.0-100.0) fL Lymphocytes # (1.0-4.8) k/uL PT (9.0-12.0) sec INR (<1.1) ABG pCO2 (35-45) mmHg ABG HCO3 (21-25) mmol/L ABG O2 Saturation (94-97) % Potassium (3.5-5.1) mmol/L Chloride (98-107) mmol/L BUN (9-20) mg/dL Creatinine (0.66-1.25) mg/dL Glucose (74-99) mg/dL POC Glucose (mg/dL) 184 H 239 H 270 H (75-99) mg/dL Calcium (8.4-10.2) mg/dL Phosphorus (2.5-4.5) mg/dL Microbiology - Last 24 Hours (Table) 04/28/16 22:00 Blood Culture - Final Blood No Growth after 144 hours 04/28/16 12:15 Blood Culture - Final Blood No Growth after 144 hours Laboratory Results WBC 8.0 k/uL (3.8-10.6) 05/05/16 04:36 RBC 3.00 m/uL (4.30-5.90) L 05/05/16 04:36 Hgb 10.2 gm/dL (13.0-17.5) L 05/05/16 04:36 Hct 32.0 % (39.0-53.0) L 05/05/16 04:36 MCV 106.6 fL (80.0-100.0) H D 05/05/16 04:36 MCH 33.9 pg (25.0-35.0) 05/05/16 04:36 MCHC 31.8 g/dL (31.0-37.0) 05/05/16 04:36 RDW 14.9 % (11.5-15.5) 05/05/16 04:36 Plt Count 239 k/uL (150-450) 05/05/16 04:36 Neutrophils % 88 % 05/05/16 04:36 Neutrophils % (Manual) 46.0 % 05/03/16 02:43 Band Neutrophils % 30.5 % 05/03/16 02:43 Lymphocytes % 8 % 05/05/16 04:36 Lymphocytes % (Manual) 16.5 % 05/03/16 02:43 Monocytes % 3 % 05/05/16 04:36 Monocytes % (Manual) 6.0 % 05/03/16 02:43 Eosinophils % 0 % 05/05/16 04:36 Eosinophils % (Manual) 0.5 % 05/01/16 05:40 Basophils % 0 % 05/05/16 04:36 Metamyelocytes % 1.0 % 05/03/16 02:43 Myelocytes % 0.5 % 04/30/16 05:38 Neutrophils # 7.0 k/uL (1.3-7.7) 05/05/16 04:36 Neutrophils # (Manual) 3.9 k/uL (1.3-7.7) 05/03/16 02:43 Lymphocytes # 0.6 k/uL (1.0-4.8) L 05/05/16 04:36 Lymphocytes # (Manual) 0.8 k/uL (1.0-4.8) L 05/03/16 02:43 Monocytes # 0.2 k/uL (0-1.0) 05/05/16 04:36 Monocytes # (Manual) 0.3 k/uL (0-1.0) 05/03/16 02:43 Eosinophils # 0.0 k/uL (0-0.7) 05/05/16 04:36 Eosinophils # (Manual) 0.0 k/uL (0-0.7) 05/01/16 05:40 Basophils # 0.0 k/uL (0-0.2) 05/05/16 04:36 Nucleated RBCs 1 /100 WBC (0-0) H 05/03/16 02:43 Manual Slide Review Performed 04/30/16 05:38 Toxic Granulation Present 04/29/16 05:42 Toxic Vacuolation Present 04/29/16 05:42 Large Platelets Present 05/03/16 02:43 Polychromasia Present 05/03/16 02:43 Hypochromasia Slight 05/05/16 04:36 Poikilocytosis (manual Present 05/03/16 02:43 Anisocytosis (manual) Present 05/03/16 02:43 Macrocytosis Moderate 05/05/16 04:36 PT 81.2 sec (9.0-12.0) H 05/05/16 04:36 INR 7.8 (<1.1) H* 05/05/16 04:36 APTT 89.5 sec (22.0-30.0) H 05/04/16 05:52 D-Dimer 2.06 mg/L FEU (<0.60) H 04/27/16 10:33 Sample Site RRAD 05/05/16 10:04 ABG pH 7.39 (7.35-7.45) 05/05/16 10:04 ABG pCO2 34 mmHg (35-45) L 05/05/16 10:04 ABG pO2 99 mmHg (83-108) 05/05/16 10:04 ABG HCO3 20 mmol/L (21-25) L 05/05/16 10:04 ABG Total CO2 21 mmol/L (19-24) 05/05/16 10:04 ABG O2 Saturation 98.0 % (94-97) H 05/05/16 10:04 ABG Base Excess -4.0 mmol/L 05/05/16 10:04 FiO2 80 % 05/05/16 10:04 Sodium 145 mmol/L (137-145) 05/05/16 04:36 Potassium 3.2 mmol/L (3.5-5.1) L 05/05/16 04:36 Chloride 109 mmol/L (98-107) H 05/05/16 04:36 Carbon Dioxide 25 mmol/L (22-30) 05/05/16 04:36 Anion Gap 11 mmol/L 05/05/16 04:36 BUN 71 mg/dL (9-20) H 05/05/16 04:36 Creatinine 1.90 mg/dL (0.66-1.25) H 05/05/16 04:36 Est GFR (MDRD) Af Amer 45 (>60 ml/min/1.73 sqM) 05/05/16 04:36 Est GFR (MDRD) Non-Af 37 (>60 ml/min/1.73 sqM) 05/05/16 04:36 Glucose 153 mg/dL (74-99) H 05/05/16 04:36 POC Glucose (mg/dL) 270 mg/dL (75-99) H 05/05/16 20:33 POC Glu Sign Installer ID Malou Howe 05/05/16 20:[address] Glu mg/dL 151 mg/dL 04/28/16 10:44 Hemoglobin A1c 6.9 % (4.2-6.1) H 04/28/16 10:44 Plasma Lactic Acid [place] 1.0 mmol/L (0.7-2.0) 05/05/16 04:36 Calcium 8.2 mg/dL (8.4-10.2) L 05/05/16 04:36 Phosphorus 5.9 mg/dL (2.5-4.5) H 05/05/16 04:36 Magnesium 2.2 mg/dL (1.6-2.3) 05/05/16 04:36 Total Bilirubin 0.6 mg/dL (0.2-1.3) 05/03/16 02:43 AST 31 U/L (17-59) 05/03/16 02:43 ALT 29 U/L (21-72) 05/03/16 02:43 Alkaline Phosphatase 37 U/L (38-126) L 05/03/16 02:43 Total Creatine Kinase 64 U/L (55-170) 04/27/16 16:08 CK-MB (CK-2) 0.5 ng/mL (0.0-2.4) 04/27/16 16:08 CK-MB (CK-2) Rel Index 0.8 04/27/16 16:08 Troponin I <0.012 ng/mL (0.000-0.034) 04/27/16 16:08 NT-Pro-B Natriuret Pep 7950 pg/mL 05/03/16 02:43 Total Protein 5.0 g/dL (6.3-8.2) L 05/03/16 02:43 Albumin 2.3 g/dL (3.5-5.0) L 05/03/16 02:43 Triglycerides 235 mg/dL (<150) H 04/28/16 06:08 Cholesterol 120 mg/dL (<200) 04/28/16 06:08 LDL Cholesterol, Calc 46 mg/dL (0-99) 04/28/16 06:08 HDL Cholesterol 27 mg/dL (40-60) L 04/28/16 06:08 Amylase <30 U/L (30-110) L 05/03/16 02:43 Lipase 317 U/L (23-300) H 05/03/16 02:43 Urine Color Yellow 04/28/16 18:40 Urine Appearance Cloudy (Clear) 04/28/16 18:40 Urine pH 5.5 (5.0-8.0) 04/28/16 18:40 Ur Specific [place] 1.018 (1.001-1.035) 04/28/16 18:40 Urine Protein 2+ (Negative) H 04/28/16 18:40 Urine Glucose (UA) Trace (Negative) H 04/28/16 18:40 Urine Ketones Trace (Negative) H 04/28/16 18:40 Urine Blood Negative (Negative) 04/28/16 18:40 Urine Nitrate Negative (Negative) 04/28/16 18:40 Urine Bilirubin Negative (Negative) 04/28/16 18:40 Urine Urobilinogen <2.0 mg/dL (<2.0) 04/28/16 18:40 Ur Leukocyte Esterase Small (Negative) H 04/28/16 18:40 Urine WBC 26 /hpf (0-5) H 04/28/16 18:40 Amorphous Sediment Occasional /hpf (None) H 04/28/16 18:40 Hyaline Casts 22 /lpf (0-2) H 04/28/16 18:40 Granular Casts 19 /lpf (0) 04/28/16 18:40 Urine Mucus Rare /hpf (None) H 04/28/16 18:40 Hepatitis A IgM Ab NEGATIVE 04/28/16 21:50 Hep Bs Antigen Negative 04/28/16 21:50 Hep B Core IgM Ab NEGATIVE 04/28/16 21:50 Hep C IgG Ab Negative (Negative) 04/28/16 21:50 Microbiology 04/28/16 22:00 Blood Blood Culture - Final No Growth after 144 hours 04/28/16 12:15 Blood Blood Culture - Final No Growth after 144 hours 04/28/16 18:40 Urine,Catheterized Urine Culture - Final Assessment and Plan (1) Pancreatitis Narrative/Plan: 56-year-old male [facility] abdominal pain. Evidence of phillip pancreatitis. Also had lower extremity edema without evidence of bilateral lower extremities deep venous thrombosis and likely pulmonary in this. Currently being treated with an heparin drip has been seen by hematology. No evidence of any significant sepsis at this time. Antibiotic therapy was tailored to ceftriaxone. The cultures remain negative we'll continue to monitor we'll discontinue Rocephin. leukocytosis has resolved. Likely on the bases the pancreatitis. Actually white count trended down a bit low. Without infections , the antibiotic was discontinued. Patient however is now having worsening pulmonary status. Likely his acute lung injury related to his pancreatitis, as well as his DVT and PE. No evidence of any infection Rocephin is discontinued. Status: Acute (2) Deep venous thrombosis Status: Acute (3) Leukocytosis Status: Acute
--- NOTE | 2016-05-05 23:23 | PN ---
DATE OF SERVICE: 05/05/2016 This 56-year-old gentleman who was admitted with multiple medical problems, including acute severe pancreatitis with possible sepsis, also had significant respiratory failure acute hypoxic respiratory failure. Patient was on BiPAP. The PT and INR are also . The patient has received vitamin K as well. Dr. Ibrahim is following the patient closely. Patient is also being diuresed at this time. Patient had bilateral DVTs as well. The patient is being closely monitored at this time. The sensorium has definitely improved compared to yesterday. Dr. Ibrahim and multiple other consultants are following the patient closely. Past medical history reviewed. REVIEW OF SYSTEMS: CARDIOVASCULAR SYSTEM: No angina. RESPIRATORY SYSTEM: Occasional cough. GI: As mentioned earlier. : No dysuria, retention. NERVOUS SYSTEM: Diffusely weak. Current medications are reviewed and include: 1. Tylenol 650 q.6 p.r.n. 2. Zyloprim 200 mg p.o. daily. 3. Aspirin 325 mg p.o. daily. 4. Lipitor 10 mg at bedtime. 5. Os-Faheem with vitamin D one p.o. b.i.d. 6. Coreg 25 mg before meals b.i.d. 7. Depakote 1000 mg p.o. daily. 8. Depakote 1500 mg p.o. daily. 9. Vitamin D2 50,000 on Wednesday. 10. Lofibra 160 mg at bedtime. 11. Iron sulfate 325 mg daily. 12. Folic acid 1 mg daily. 13. Dilaudid 0.5 mg q.4 p.r.n. 14. Lantus 60 units subcutaneously at bedtime. 15. Xopenex 1.25 t.i.d. 16. Keppra 1500 mg each morning and 1000 mg p.o. daily. 17. Solu-Medrol 60 IV q.6. 18. Nitrostat 0.4 sublingually p.r.n. 19. Zofran 4 mg IV q.6 p.r.n. 20. Protonix 40 mg p.o. before breakfast. 21. Ultram 50 mg p.o. q.i.d. 22. Effexor XR 150 mg p.o. daily. 23. Verapamil 80 mg p.o. t.i.d. PHYSICAL EXAMINATION: Patient is alert and oriented x3. Pulse is 101, blood pressure 106/64, respiration 20, temperature normal, pulse ox 93%. HEENT: Conjunctivae normal. Oral mucosa moist. NECK: No jugular venous distention. No carotid bruit. No lymph node enlargement. CARDIOVASCULAR SYSTEM: S1, S2 muffled. No S3. No S4. RESPIRATORY SYSTEM: Breath sounds diminished at the bases. Bilateral scattered rhonchi and crackles. ABDOMEN: Soft, obese, nontender. No mass palpable. No guarding. No rigidity. Flanks are dull. LEGS: Bilateral left edema. NERVOUS SYSTEM: Unchanged. SKIN: No ulcer, rash, bleeding. Labs at this time show WBC 8, hemoglobin 10.2. INR is 7.8. Sodium 144, potassium 4.0. ASSESSMENT: 1. Acute severe pancreas with possible sepsis, present on admission. 2. Acute hypoxic respiratory failure, possibly multifactorial, on BiPAP, hypercapnic. 3. Change in mental status, metabolic encephalopathy, multifactorial. 4. Bilateral pleural effusion, left more than the right, possibly reactive. 5. Possible pneumonia, bibasilar, possibly Gram-negative. 6. Hyperlipidemia with increased triglycerides. 7. Bilateral lower leg deep venous thromboses, acute. 8. Intermediate VQ scan with possible acute pulmonary embolism. 9. Intravenous heparin monitoring. 10. Hypoalbuminemia with mild to moderate protein-calorie malnutrition. 11. Coumadin coagulopathy. 12. Increased lactic acid on admission. 13. Acute on chronic renal failure with chronic kidney disease, stage III, and acute renal failure secondary to acute tubular necrosis, multifactorial, with prerenal factors. 14. Hyperkalemia secondary to acute tubular necrosis. 15. Leukocytosis secondary to possible sepsis. 16. Obesity with a body mass index of 38.4. 17. History of coronary artery disease. 18. History of congestive heart failure; ejection fraction 60% to 65%, with chronic diastolic dysfunction. 19. History of cerebrovascular accident, transient ischemic attack. 20. 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 21. Diabetes mellitus, type 2. 22. Gastroesophageal reflux disease. 23. Hypertension. 24. History of degenerative joint disease. 25. History of seizure disorder. 26. History of peripheral vascular disease. 27. History of bibasilar atelectasis. 28. History of sacral decubitus ulcer, currently staged pressure ulcer in the mid coccyx. 29. Bilateral pleural effusions. 30. Hyponatremia secondary to free water deficit. 31. Hypokalemia. 32. Chronic obstructive pulmonary disease. 33. Ventral hernia. 34. FULL CODE. RECOMMENDATIONS AND DISCUSSION: In this 56-year-old gentleman who presented with multiple complex medical issues, we will monitor the patient closely, continue the current medication, continue with symptomatic treatment, continue with bronchodilators, continue with diuretics. Patient is currently on Lasix 40 mg once. Repeat labs. Continue the current medications. Monitor PT and INR closely. Prognosis is guarded because of multiple complex medical issues. Further recommendations to follow. MTDD
[2016-05-05 23:34] LABS: Glucose,Whole Blood 270 mg/dL (75-99)
[2016-05-06 01:29] LABS: Glucose,Whole Blood 253 mg/dL (75-99)
[2016-05-06] MEDS: traMADol 50 MG TAB PO PRN (02:39)
[2016-05-06] MEDS: HYDROmorphone 1 MG/ML 1 ML SYRINGE IVP PRN (02:39)
[2016-05-06] MEDS: POLYETHYLENE GLYCOL 3350 17 GM POWD.PACK PO SCH ×2 (02:40→19:53)
[2016-05-06 04:38] LABS: Basophils % (A) 0 %; CH 33.6; CHCM 31.5; Eosinophils % (A) 0 %; HCT 33.4 % (39.0-53.0); HDW 3.01; HGB 10.4 gm/dL (13.0-17.5); Hypochromasia Slight; Luc # (Auto) 0.04; Luc % (Auto) 0; Lymphocytes # (A) 0.6 k/uL (1.0-4.8); Lymphocytes % (A) 5 %; MCH 33.6 pg (25.0-35.0); MCHC 31.2 g/dL (31.0-37.0); MCV 107.5 fL (80.0-100.0); Macrocytosis Marked; Monocytes # (A) 0.3 k/uL (0-1.0); Monocytes % (A) 3 %; Neutrophils # (A) 11.6 k/uL (1.3-7.7); Neutrophils % (A) 92 %; RBC 3.11 m/uL (4.30-5.90); RDW 15.3 % (11.5-15.5); WBC 12.6 k/uL (3.8-10.6); WBC (Perox) 12.74
[2016-05-06 04:46] LABS: INR 2.1 (<1.1); Prothrombin Time 20.5 sec (9.0-12.0)
[2016-05-06 04:55] LABS: Glucose,Whole Blood 217 mg/dL (75-99)
[2016-05-06 04:56] LABS: Amylase <30 U/L (30-110); Anion Gap 11 mmol/L; Blood Urea Nitrogen 69 mg/dL (9-20); Calcium 8.3 mg/dL (8.4-10.2); Carbon Dioxide 24 mmol/L (22-30); Chloride 112 mmol/L (98-107); Glucose 222 mg/dL (74-99); Magnesium 2.4 mg/dL (1.6-2.3); Non-African American GFR(MDRD) 40 (>60 ml/min/1.73 sqM); Phosphorous 5.3 mg/dL (2.5-4.5); Potassium 3.8 mmol/L (3.5-5.1); Sodium 147 mmol/L (137-145)
[2016-05-06] MEDS ORDERED: POTASSIUM CHLORIDE ER 20 MEQ TAB.ER PO STA (05:01)
[2016-05-06] MEDS: DIVALPROEX 500 MG TABLET.DR PO SCH ×2 (05:43→16:40)
[2016-05-06] MEDS: DEXTROSE 5% IN WATER 1,000 ML IV SCH ×3 (05:45→20:01)
[2016-05-06] MEDS: INSULIN LISPRO (humaLOG) 300 UNIT/3 ML VIAL SQ SCH ×6 (05:45→19:58)
[2016-05-06] MEDS: methylPREDNISolone SOD SUCCI 125 MG/2 ML VIAL IV SCH ×5 (06:14→23:25)
[2016-05-06] MEDS: LEVALBUTEROL NEB 1.25 MG/3 ML AMP INHALATION SCH ×3 (07:38→19:23)
--- NOTE | 2016-05-06 07:40 | XR ---
EXAMINATION TYPE: XR chest 1V portable DATE OF EXAM: 05/06/2016 6:55 AM COMPARISON: Prior chest x-ray April HISTORY: Shortness of breath TECHNIQUE: Single frontal view of the chest is obtained. FINDINGS: Similar findings. There is obscuration of the left hemidiaphragm, increased density in the lung bases left greater than right. No evident pneumothorax. The heart is enlarged. IMPRESSION: Left greater than right lower lobe atelectasis and associated effusion, cardiomegaly. Dif ficult to exclude basilar airspace disease. Follow-up recommended.
[2016-05-06] MEDS: ALLOPURINOL 100 MG TAB PO SCH (09:26)
[2016-05-06] MEDS: PANTOPRAZOLE 40 MG TABLET PO SCH (09:26)
[2016-05-06] MEDS: VERAPAMIL 80 MG TAB PO SCH ×3 (09:26→23:25)
[2016-05-06] MEDS: CALCIUM CARB-VIT D 500MG-200UN 1 EACH TAB PO SCH ×2 (09:26→19:52)
[2016-05-06] MEDS: VENLAFAXINE HCL ER 150 MG CAP PO SCH (09:26)
[2016-05-06] MEDS: ASPIRIN 325 MG TAB PO SCH (09:26)
[2016-05-06] MEDS: CARVEDILOL 12.5 MG TAB PO SCH ×2 (09:26→18:24)
[2016-05-06] MEDS: levETIRAcetam 500 MG TAB PO SCH ×2 (09:27→16:40)
--- NOTE | 2016-05-06 09:40 | P.PN ---
Subjective Principal diagnosis: ANAI Patient is seen in follow-up for acute kidney injury on chronic any disease. Patient has chronic kidney disease stage III with baseline creatinine in the range of 1-1.5 secondary to diabetic kidney disease. Creatinine did peak at 4.2 this admission and is 1. 75 today. He is currently resting in bed. He has a Grimes catheter in place and is nonoliguric. No vomiting or diarrhea. Denies chest pain. Patient was transferred to the intensive care unit on May 04 for respiratory distress and requiring high amounts of oxygen support. Overall doing better. Appetite is starting to improve. Vital signs are stable. General: The patient appeared well nourished and normally developed. HEENT: Head exam is unremarkable. Neck is without jugular venous distension. LUNGS: Lungs are clear to auscultation and percussion. Breath sounds decreased. HEART: Rate and Rhythm are regular. First and second heart sounds normal. No murmurs, rubs or gallops. ABDOMEN: Abdominal exam reveals normal bowel sounds. Non-tender and non- distended. No evidence of peritonitis. EXTREMITITES: No clubbing, cyanosis, or edema. Objective - Vital Signs Vital signs: Vital Signs Temp 97.4 F L 05/06/16 08:00 Pulse 80 05/06/16 09:00 Resp 21 05/06/16 09:00 BP 117/68 05/06/16 09:00 Pulse Ox 95 05/06/16 09:00 Intake & Output 05/05/16 05/06/16 05/06/16 18:59 06:59 18:59 Intake Total 800 570 150 Output Total 890 1575 320 Balance -90 -1005 -170 Weight 115.9 kg 113.4 kg 113.4 kg Intake: IV 800 570 150 Dextrose 5% in Water 1, 400 570 150 000 ml @ 50 mls/hr IV . Q20H LUIS MANUEL Rx#:[id number] Sodium Chloride 0.45% 1, 400 000 ml @ 100 mls/hr IV . Q10H LUIS MANUEL Rx#:[id number] Output: Urine 890 1575 320 Other: Voiding Method Indwelling Catheter Indwelling Catheter Indwelling Catheter # Voids 1 # Bowel Movements 0 - Labs CBC & Chem 7: 05/06/16 04:28 05/06/16 07:22 Labs: Abnormal Lab Results - Last 24 Hours (Table) 05/05/16 05/05/16 05/05/16 Range/Units 10:04 11:33 17:29 WBC (3.8-10.6) k/uL RBC (4.30-5.90) m/uL Hgb (13.0-17.5) gm/dL Hct (39.0-53.0) % MCV (80.0-100.0) fL Neutrophils # (1.3-7.7) k/uL Lymphocytes # (1.0-4.8) k/uL PT (9.0-12.0) sec ABG pCO2 34 L (35-45) mmHg ABG HCO3 20 L (21-25) mmol/L ABG O2 Saturation 98.0 H (94-97) % Sodium (137-145) mmol/L Chloride (98-107) mmol/L BUN (9-20) mg/dL Creatinine (0.66-1.25) mg/dL Glucose (74-99) mg/dL POC Glucose (mg/dL) 184 H 239 H (75-99) mg/dL Calcium (8.4-10.2) mg/dL Phosphorus (2.5-4.5) mg/dL Magnesium (1.6-2.3) mg/dL Amylase (30-110) U/L Lipase (23-300) U/L 05/05/16 05/05/16 05/06/16 Range/Units 20:33 23:32 01:28 WBC (3.8-10.6) k/uL RBC (4.30-5.90) m/uL Hgb (13.0-17.5) gm/dL Hct (39.0-53.0) % MCV (80.0-100.0) fL Neutrophils # (1.3-7.7) k/uL Lymphocytes # (1.0-4.8) k/uL PT (9.0-12.0) sec ABG pCO2 (35-45) mmHg ABG HCO3 (21-25) mmol/L ABG O2 Saturation (94-97) % Sodium (137-145) mmol/L Chloride (98-107) mmol/L BUN (9-20) mg/dL Creatinine (0.66-1.25) mg/dL Glucose (74-99) mg/dL POC Glucose (mg/dL) 270 H 270 H 253 H (75-99) mg/dL Calcium (8.4-10.2) mg/dL Phosphorus (2.5-4.5) mg/dL Magnesium (1.6-2.3) mg/dL Amylase (30-110) U/L Lipase (23-300) U/L 05/06/16 05/06/16 05/06/16 Range/Units 04:28 04:28 04:28 WBC 12.6 H (3.8-10.6) k/uL RBC 3.11 L (4.30-5.90) m/uL Hgb 10.4 L (13.0-17.5) gm/dL Hct 33.4 L (39.0-53.0) % MCV 107.5 H (80.0-100.0) fL Neutrophils # 11.6 H (1.3-7.7) k/uL Lymphocytes # 0.6 L (1.0-4.8) k/uL PT 20.5 H (9.0-12.0) sec ABG pCO2 (35-45) mmHg ABG HCO3 (21-25) mmol/L ABG O2 Saturation (94-97) % Sodium 147 H (137-145) mmol/L Chloride 112 H (98-107) mmol/L BUN 69 H (9-20) mg/dL Creatinine 1.75 H (0.66-1.25) mg/dL Glucose 222 H (74-99) mg/dL POC Glucose (mg/dL) (75-99) mg/dL Calcium 8.3 L (8.4-10.2) mg/dL Phosphorus 5.3 H (2.5-4.5) mg/dL Magnesium 2.4 H (1.6-2.3) mg/dL Amylase <30 L (30-110) U/L Lipase 378 H (23-300) U/L 05/06/16 Range/Units 04:52 WBC (3.8-10.6) k/uL RBC (4.30-5.90) m/uL Hgb (13.0-17.5) gm/dL Hct (39.0-53.0) % MCV (80.0-100.0) fL Neutrophils # (1.3-7.7) k/uL Lymphocytes # (1.0-4.8) k/uL PT (9.0-12.0) sec ABG pCO2 (35-45) mmHg ABG HCO3 (21-25) mmol/L ABG O2 Saturation (94-97) % Sodium (137-145) mmol/L Chloride (98-107) mmol/L BUN (9-20) mg/dL Creatinine (0.66-1.25) mg/dL Glucose (74-99) mg/dL POC Glucose (mg/dL) 217 H (75-99) mg/dL Calcium (8.4-10.2) mg/dL Phosphorus (2.5-4.5) mg/dL Magnesium (1.6-2.3) mg/dL Amylase (30-110) U/L Lipase (23-300) U/L Microbiology - Last 24 Hours (Table) 04/28/16 22:00 Blood Culture - Final Blood No Growth after 144 hours 04/28/16 12:15 Blood Culture - Final Blood No Growth after 144 hours Assessment and Plan Plan: Assessment: #1. Nonoliguric acute kidney injury secondary to ischemic ATN secondary to pancreatitis. Renal function improving with creatinine down to 1.75 today. #2. Chronic kidney disease stage III secondary to diabetic kidney disease with baseline creatinine in the range of 1-1.5. #3. Bilateral lower extremity DVTs. #4. Hypernatremia secondary to lack of free water intake. #5. Acute pancreatitis. #6. Hypokalemia secondary to increased urinary potassium losses. Magnesium replete. Improved. #7. Atrial fibrillation. Plan: Increase D5W to be run at 60 mL an hour. Avoid nephrotoxic agents and hypotensive episodes. Okay to discontinue Grimes catheter. Repeat electrolytes in the morning. No need for renal replacement therapy at this time. Encourage oral intake.
--- NOTE | 2016-05-06 12:45 | P.PN ---
Subjective Patient is a 56-year-old male being evaluated for acute pancreatitis with history of EtOH abuse. Patient is feeling better. No nausea or vomiting. Tolerating soft diet. Afebrile. WBC increased to 12.6. Objective - Vital Signs Vital signs: Vital Signs Temp 96.4 F L 05/06/16 12:00 Pulse 97 05/06/16 12:00 Resp 29 H 05/06/16 12:00 BP 115/56 05/06/16 12:00 Pulse Ox 97 05/06/16 12:00 Intake & Output 05/05/16 05/06/16 05/06/16 18:59 06:59 18:59 Intake Total 800 570 270 Output Total 890 1575 580 Balance -90 -1005 -310 Weight 115.9 kg 113.4 kg 113.4 kg Intake: IV 800 570 270 Dextrose 5% in Water 1, 400 570 270 000 ml @ 60 mls/hr IV . [id number] LUIS MANUEL Rx#:[id number] Sodium Chloride 0.45% 1, 400 000 ml @ 100 mls/hr IV . Q10H LUIS MANUEL Rx#:[id number] Output: Urine 890 1575 580 Other: Voiding Method Indwelling Catheter Indwelling Catheter Indwelling Catheter # Voids 1 # Bowel Movements 0 - Exam GENERAL: Pt awake and alert, appears in no apparent distress. LUNGS: Breath sounds diminished to auscultation bilaterally. HEART: Heart S1, S2, no S3 or S4. No murmurs, rubs or gallops. ABDOMEN: Soft, obese, moderate epigastric and left upper quadrant tenderness, mildly distended, active bowel sounds. NEUROLOGICAL: Pt oriented x 3. - Labs CBC & Chem 7: 05/06/16 04:28 05/06/16 07:22 Labs: Abnormal Lab Results - Last 24 Hours (Table) 05/05/16 05/05/16 05/05/16 Range/Units 17:29 20:33 23:32 WBC (3.8-10.6) k/uL RBC (4.30-5.90) m/uL Hgb (13.0-17.5) gm/dL Hct (39.0-53.0) % MCV (80.0-100.0) fL Neutrophils # (1.3-7.7) k/uL Lymphocytes # (1.0-4.8) k/uL PT (9.0-12.0) sec Sodium (137-145) mmol/L Chloride (98-107) mmol/L BUN (9-20) mg/dL Creatinine (0.66-1.25) mg/dL Glucose (74-99) mg/dL POC Glucose (mg/dL) 239 H 270 H 270 H (75-99) mg/dL Calcium (8.4-10.2) mg/dL Phosphorus (2.5-4.5) mg/dL Magnesium (1.6-2.3) mg/dL Amylase (30-110) U/L Lipase (23-300) U/L 05/06/16 05/06/16 05/06/16 Range/Units 01:28 04:28 04:28 WBC 12.6 H (3.8-10.6) k/uL RBC 3.11 L (4.30-5.90) m/uL Hgb 10.4 L (13.0-17.5) gm/dL Hct 33.4 L (39.0-53.0) % MCV 107.5 H (80.0-100.0) fL Neutrophils # 11.6 H (1.3-7.7) k/uL Lymphocytes # 0.6 L (1.0-4.8) k/uL PT 20.5 H (9.0-12.0) sec Sodium (137-145) mmol/L Chloride (98-107) mmol/L BUN (9-20) mg/dL Creatinine (0.66-1.25) mg/dL Glucose (74-99) mg/dL POC Glucose (mg/dL) 253 H (75-99) mg/dL Calcium (8.4-10.2) mg/dL Phosphorus (2.5-4.5) mg/dL Magnesium (1.6-2.3) mg/dL Amylase (30-110) U/L Lipase (23-300) U/L 05/06/16 05/06/16 Range/Units 04:28 04:52 WBC (3.8-10.6) k/uL RBC (4.30-5.90) m/uL Hgb (13.0-17.5) gm/dL Hct (39.0-53.0) % MCV (80.0-100.0) fL Neutrophils # (1.3-7.7) k/uL Lymphocytes # (1.0-4.8) k/uL PT (9.0-12.0) sec Sodium 147 H (137-145) mmol/L Chloride 112 H (98-107) mmol/L BUN 69 H (9-20) mg/dL Creatinine 1.75 H (0.66-1.25) mg/dL Glucose 222 H (74-99) mg/dL POC Glucose (mg/dL) 217 H (75-99) mg/dL Calcium 8.3 L (8.4-10.2) mg/dL Phosphorus 5.3 H (2.5-4.5) mg/dL Magnesium 2.4 H (1.6-2.3) mg/dL Amylase <30 L (30-110) U/L Lipase 378 H (23-300) U/L Microbiology - Last 24 Hours (Table) 04/28/16 22:00 Blood Culture - Final Blood No Growth after 144 hours 04/28/16 12:15 Blood Culture - Final Blood No Growth after 144 hours Assessment and Plan Plan: Impression: 1. Acute pancreatitis, improved. Lipase slightly elevated at 378 from 317 on 05/03/2016 2. Ventral hernia containing fat only. Plan: 1. Continue to monitor patient. Continue diet per GI. Continue IV hydration. Continue supportive treatment and pain management. Continue to follow with primary service and consultants. Patient is not a surgical candidate at this time. The above impression and plan have been discussed and directed by Dr. Murry. Dayana VICENTE acting as scribe for Dr. Murry.
[2016-05-06] MEDS: FOLIC ACID 1 MG TAB PO SCH (12:49)
[2016-05-06 13:08] LABS: Glucose,Whole Blood 159 mg/dL (75-99)
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
[2016-05-06] MEDS: FERROUS SULFATE 325 MG TAB PO SCH (16:39)
[2016-05-06 17:49] LABS: Glucose,Whole Blood 137 mg/dL (75-99)
--- NOTE | 2016-05-06 18:17 | PN ---
Mr. Tariq has multiple comorbid conditions. He is in atrial fibrillation. His INR is 2.1. He has pleural effusion and Dr. Ibrahim is planning on doing a thoracentesis. We will therefore hold anticoagulation. Continue current medications, which have given him good rate control. He has had pancreatitis, pleural effusion and atrial fibrillation as the major issues and has underlying COPD; probably some sleep apnea-type picture as well. Cardiac-oseguera we will hold anticoagulation since he may have thoracentesis, continue rate control with a combination of beta cyrus and Verapamil. S1, S2 heard normally. Heart sounds distant; irregular rhythm noted. Short systolic murmur noted. Lungs reveal diminished air entry on the left side. Abdomen and lower extremity exam unchanged. Rest of his physical exam is unchanged. Prognosis remains guarded.
[2016-05-06] MEDS: ATORVASTATIN 10 MG TAB PO SCH (19:52)
[2016-05-06] MEDS: FENOFIBRATE 160 MG TAB PO SCH (19:52)
[2016-05-06] MEDS: INSULIN GLARGINE 100 UNIT/ML 10 ML VIAL SQ SCH (19:55)
[2016-05-06 19:58] LABS: Glucose,Whole Blood 183 mg/dL (75-99)
--- NOTE | 2016-05-06 21:41 | P.PN ---
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 Patient is known to ID service as he was seen in May 2015 at which time he was treated for cellulitis of the right lower extremity. At that time he underwent duplex study that was negative for DVT, x-ray that showed potential for abscess and CAT scan of the lower extremity was done that failed to reveal an abscess and was negative for osteomyelitis. He was treated with local wound care with Silvadene and he was discharged on oral Bactrim. Patient currently resides at [facility]. He states he had a sudden onset of chest pain on the left side while he was watching TV. It was sharp with a 5 out of 10 with mild shortness of breath. Patient was transferred to [facility] where he received 4 baby aspirin and 3 nitroglycerin that did not change his pain. His d -dimer was slightly elevated at 0.73. BUN was 26 and creatinine 1.8. It appears patient's baseline creatinine is 1.5-1.7. He was afebrile. Troponin was 0.017. He was given 1 L of IV fluids and there was concern for pulmonary embolism and patient was transferred to [facility] for VQ scan. Patient was admitted to the selective care unit. Unfortunately he was unable to complete the VQ scan. However, venous Dopplers of the bilateral lower extremities were positive on both sides. He underwent a chest x-ray that showed left lower lobe atelectasis or infiltrate and cardiomegaly. CAT scan of the abdomen and pelvis revealed acute pancreatitis. He subsequently underwent x -ray films that showed possible obstruction or ileus. Patient's last bowel movement was apparently 2 days ago. Repeat lab work showed leukocytosis of 16.4 , lactic acid 2.4 and BUN 43 with creatinine 3.5. Albumin 3.2. Potassium was 6.06 and he is status post Kayexalate. His heart rate has been running 120-130 since admission. He has the following consultations in place cardiology, pulmonary medicine, nephrology, surgery. Amylase was 632 and lipase 13,509. Patient continues to have left upper quadrant lower rib pain. He does complain of nausea without vomiting. He denies any diarrhea. He denies any cough or sputum reduction. He states he has shortness of breath all the time and he normally has rapid respirations per the patient area he denies any problems with his legs that he is aware of. He is incontinent of urine. Seems to be slightly improved today. More awake and alert. Knows that he is Ruchi Marin. Was able to state my name. Abdominal pains improved." Bowel movements occurred. diarrheas improved and not thought to have C. diff. Respiratory status has remained a significant difficulty. He is now been on BiPAP consistently. In the BiPAP was required increasing amounts of settings to maintain a saturation. Because he is being transferred intensive care unit at this time. For ongoing pulmonary management. Acute lung injury from his pancreatitis appears to be occurring. He is now off of BiPAP and is feeling slightly better. Sitting up in the chair today Objective - Vital Signs Vital signs: Vital Signs Temp 96.9 F L 05/06/16 20:00 Pulse 97 05/06/16 21:00 Resp 20 05/06/16 21:00 BP 103/69 05/06/16 21:00 Pulse Ox 94 L 05/06/16 21:00 Intake & Output 05/06/16 05/06/16 05/07/16 06:59 18:59 06:59 Intake Total 570 390 0 Output Total 1575 1180 285 Balance -1005 -790 -285 Weight 113.4 kg 113.4 kg Intake: IV 570 390 0 Dextrose 5% in Water 1, 570 390 0 000 ml @ 60 mls/hr IV . [id number] [facility] Rx#:[id number] Oral 0 Output: Urine 1575 1180 285 Other: Voiding Method Indwelling Catheter Indwelling Catheter Indwelling Catheter # Voids 1 # Bowel Movements 0 - Exam Gen: This is a obese 56-year-old male. Sitting up in a chair with high flow oxygen HEENT: Head is atraumatic, normocephalic. Pupils equal, round. Sclerae is anicteric. Conjunctiva pink. Mucous membranes of the mouth are moist. No thrush noted. NECK: Supple. No JVD. No lymphadenopathy. No thyromegaly. LUNGS: Symmetrical air entry is noted. There are basilar crackles. Few expiratory wheezes are heard. No phillip bronchial sounds are noted. Egophony could not be evaluated HEART: Regular rate and rhythm. No murmur. ABDOMEN: Slightly distended. Bowel sounds are present. Generalized tenderness to the entire abdomen less tender to the left upper quadrant today. EXTREMITIES: Trace bilateral pedal edema. No erythema or wounds noted to the bilateral lower extremities NEUROLOGICAL: Patient is awake and alert interactive feeling better - Labs CBC & Chem 7: 05/06/16 04:28 05/06/16 07:22 Labs: Abnormal Lab Results - Last 24 Hours (Table) 05/05/16 05/06/16 05/06/16 Range/Units 23:32 01:28 04:28 WBC 12.6 H (3.8-10.6) k/uL RBC 3.11 L (4.30-5.90) m/uL Hgb 10.4 L (13.0-17.5) gm/dL Hct 33.4 L (39.0-53.0) % MCV 107.5 H (80.0-100.0) fL Neutrophils # 11.6 H (1.3-7.7) k/uL Lymphocytes # 0.6 L (1.0-4.8) k/uL PT (9.0-12.0) sec Sodium (137-145) mmol/L Chloride (98-107) mmol/L BUN (9-20) mg/dL Creatinine (0.66-1.25) mg/dL Glucose (74-99) mg/dL POC Glucose (mg/dL) 270 H 253 H (75-99) mg/dL Calcium (8.4-10.2) mg/dL Phosphorus (2.5-4.5) mg/dL Magnesium (1.6-2.3) mg/dL Amylase (30-110) U/L Lipase (23-300) U/L 05/06/16 05/06/16 05/06/16 Range/Units 04:28 04:28 04:52 WBC (3.8-10.6) k/uL RBC (4.30-5.90) m/uL Hgb (13.0-17.5) gm/dL Hct (39.0-53.0) % MCV (80.0-100.0) fL Neutrophils # (1.3-7.7) k/uL Lymphocytes # (1.0-4.8) k/uL PT 20.5 H (9.0-12.0) sec Sodium 147 H (137-145) mmol/L Chloride 112 H (98-107) mmol/L BUN 69 H (9-20) mg/dL Creatinine 1.75 H (0.66-1.25) mg/dL Glucose 222 H (74-99) mg/dL POC Glucose (mg/dL) 217 H (75-99) mg/dL Calcium 8.3 L (8.4-10.2) mg/dL Phosphorus 5.3 H (2.5-4.5) mg/dL Magnesium 2.4 H (1.6-2.3) mg/dL Amylase <30 L (30-110) U/L Lipase 378 H (23-300) U/L 05/06/16 05/06/16 05/06/16 Range/Units 12:52 17:47 19:57 WBC (3.8-10.6) k/uL RBC (4.30-5.90) m/uL Hgb (13.0-17.5) gm/dL Hct (39.0-53.0) % MCV (80.0-100.0) fL Neutrophils # (1.3-7.7) k/uL Lymphocytes # (1.0-4.8) k/uL PT (9.0-12.0) sec Sodium (137-145) mmol/L Chloride (98-107) mmol/L BUN (9-20) mg/dL Creatinine (0.66-1.25) mg/dL Glucose (74-99) mg/dL POC Glucose (mg/dL) 159 H 137 H 183 H (75-99) mg/dL Calcium (8.4-10.2) mg/dL Phosphorus (2.5-4.5) mg/dL Magnesium (1.6-2.3) mg/dL Amylase (30-110) U/L Lipase (23-300) U/L Laboratory Results WBC 12.6 k/uL (3.8-10.6) H 05/06/16 04:28 RBC 3.11 m/uL (4.30-5.90) L 05/06/16 04:28 Hgb 10.4 gm/dL (13.0-17.5) L 05/06/16 04:28 Hct 33.4 % (39.0-53.0) L 05/06/16 04:28 MCV 107.5 fL (80.0-100.0) H 05/06/16 04:28 MCH 33.6 pg (25.0-35.0) 05/06/16 04:28 MCHC 31.2 g/dL (31.0-37.0) 05/06/16 04:28 RDW 15.3 % (11.5-15.5) 05/06/16 04:28 Plt Count 246 k/uL (150-450) 05/06/16 04:28 Neutrophils % 92 % 05/06/16 04:28 Neutrophils % (Manual) 46.0 % 05/03/16 02:43 Band Neutrophils % 30.5 % 05/03/16 02:43 Lymphocytes % 5 % 05/06/16 04:28 Lymphocytes % (Manual) 16.5 % 05/03/16 02:43 Monocytes % 3 % 05/06/16 04:28 Monocytes % (Manual) 6.0 % 05/03/16 02:43 Eosinophils % 0 % 05/06/16 04:28 Eosinophils % (Manual) 0.5 % 05/01/16 05:40 Basophils % 0 % 05/06/16 04:28 Metamyelocytes % 1.0 % 05/03/16 02:43 Myelocytes % 0.5 % 04/30/16 05:38 Neutrophils # 11.6 k/uL (1.3-7.7) H 05/06/16 04:28 Neutrophils # (Manual) 3.9 k/uL (1.3-7.7) 05/03/16 02:43 Lymphocytes # 0.6 k/uL (1.0-4.8) L 05/06/16 04:28 Lymphocytes # (Manual) 0.8 k/uL (1.0-4.8) L 05/03/16 02:43 Monocytes # 0.3 k/uL (0-1.0) 05/06/16 04:28 Monocytes # (Manual) 0.3 k/uL (0-1.0) 05/03/16 02:43 Eosinophils # 0.0 k/uL (0-0.7) 05/06/16 04:28 Eosinophils # (Manual) 0.0 k/uL (0-0.7) 05/01/16 05:40 Basophils # 0.0 k/uL (0-0.2) 05/06/16 04:28 Nucleated RBCs 1 /100 WBC (0-0) H 05/03/16 02:43 Manual Slide Review Performed 04/30/16 05:38 Toxic Granulation Present 04/29/16 05:42 Toxic Vacuolation Present 04/29/16 05:42 Large Platelets Present 05/03/16 02:43 Polychromasia Present 05/03/16 02:43 Hypochromasia Slight 05/06/16 04:28 Poikilocytosis (manual Present 05/03/16 02:43 Anisocytosis (manual) Present 05/03/16 02:43 Macrocytosis Marked 05/06/16 04:28 PT 20.5 sec (9.0-12.0) H 05/06/16 04:28 INR 2.1 (<1.1) 05/06/16 04:28 APTT 89.5 sec (22.0-30.0) H 05/04/16 05:52 D-Dimer 2.06 mg/L FEU (<0.60) H 04/27/16 10:33 Sample Site RRAD 05/05/16 10:04 ABG pH 7.39 (7.35-7.45) 05/05/16 10:04 ABG pCO2 34 mmHg (35-45) L 05/05/16 10:04 ABG pO2 99 mmHg (83-108) 05/05/16 10:04 ABG HCO3 20 mmol/L (21-25) L 05/05/16 10:04 ABG Total CO2 21 mmol/L (19-24) 05/05/16 10:04 ABG O2 Saturation 98.0 % (94-97) H 05/05/16 10:04 ABG Base Excess -4.0 mmol/L 05/05/16 10:04 FiO2 80 % 05/05/16 10:04 Sodium 147 mmol/L (137-145) H 05/06/16 04:28 Potassium 4.0 mmol/L (3.5-5.1) 05/06/16 07:22 Chloride 112 mmol/L (98-107) H 05/06/16 04:28 Carbon Dioxide 24 mmol/L (22-30) 05/06/16 04:28 Anion Gap 11 mmol/L 05/06/16 04:28 BUN 69 mg/dL (9-20) H 05/06/16 04:28 Creatinine 1.75 mg/dL (0.66-1.25) H 05/06/16 04:28 Est GFR (MDRD) Af Amer 49 (>60 ml/min/1.73 sqM) 05/06/16 04:28 Est GFR (MDRD) Non-Af 40 (>60 ml/min/1.73 sqM) 05/06/16 04:28 Glucose 222 mg/dL (74-99) H 05/06/16 04:28 POC Glucose (mg/dL) 183 mg/dL (75-99) H 05/06/16 19:57 POC Glu [employer] [place] 05/06/16 19:[address] Glu mg/dL 151 mg/dL 04/28/16 10:44 Hemoglobin A1c 6.9 % (4.2-6.1) H 04/28/16 10:44 Plasma Lactic Acid [place] 1.8 mmol/L (0.7-2.0) 05/06/16 07:22 Calcium 8.3 mg/dL (8.4-10.2) L 05/06/16 04:28 Phosphorus 5.3 mg/dL (2.5-4.5) H 05/06/16 04:28 Magnesium 2.4 mg/dL (1.6-2.3) H 05/06/16 04:28 Total Bilirubin 0.6 mg/dL (0.2-1.3) 05/03/16 02:43 AST 31 U/L (17-59) 05/03/16 02:43 ALT 29 U/L (21-72) 05/03/16 02:43 Alkaline Phosphatase 37 U/L (38-126) L 05/03/16 02:43 Total Creatine Kinase 64 U/L (55-170) 04/27/16 16:08 CK-MB (CK-2) 0.5 ng/mL (0.0-2.4) 04/27/16 16:08 CK-MB (CK-2) Rel Index 0.8 04/27/16 16:08 Troponin I <0.012 ng/mL (0.000-0.034) 04/27/16 16:08 NT-Pro-B Natriuret Pep 7950 pg/mL 05/03/16 02:43 Total Protein 5.0 g/dL (6.3-8.2) L 05/03/16 02:43 Albumin 2.3 g/dL (3.5-5.0) L 05/03/16 02:43 Triglycerides 235 mg/dL (<150) H 04/28/16 06:08 Cholesterol 120 mg/dL (<200) 04/28/16 06:08 LDL Cholesterol, Calc 46 mg/dL (0-99) 04/28/16 06:08 HDL Cholesterol 27 mg/dL (40-60) L 04/28/16 06:08 Amylase <30 U/L (30-110) L 05/06/16 04:28 Lipase 378 U/L (23-300) H 05/06/16 04:28 Urine Color Yellow 04/28/16 18:40 Urine Appearance Cloudy (Clear) 04/28/16 18:40 Urine pH 5.5 (5.0-8.0) 04/28/16 18:40 Ur Specific Spencer 1.018 (1.001-1.035) 04/28/16 18:40 Urine Protein 2+ (Negative) H 04/28/16 18:40 Urine Glucose (UA) Trace (Negative) H 04/28/16 18:40 Urine Ketones Trace (Negative) H 04/28/16 18:40 Urine Blood Negative (Negative) 04/28/16 18:40 Urine Nitrate Negative (Negative) 04/28/16 18:40 Urine Bilirubin Negative (Negative) 04/28/16 18:40 Urine Urobilinogen <2.0 mg/dL (<2.0) 04/28/16 18:40 Ur Leukocyte Esterase Small (Negative) H 04/28/16 18:40 Urine WBC 26 /hpf (0-5) H 04/28/16 18:40 Amorphous Sediment Occasional /hpf (None) H 04/28/16 18:40 Hyaline Casts 22 /lpf (0-2) H 04/28/16 18:40 Granular Casts 19 /lpf (0) 04/28/16 18:40 Urine Mucus Rare /hpf (None) H 04/28/16 18:40 Hepatitis A IgM Ab NEGATIVE 04/28/16 21:50 Hep Bs Antigen Negative 04/28/16 21:50 Hep B Core IgM Ab NEGATIVE 04/28/16 21:50 Hep C IgG Ab Negative (Negative) 04/28/16 21:50 Microbiology 04/28/16 22:00 Blood Blood Culture - Final No Growth after 144 hours 04/28/16 12:15 Blood Blood Culture - Final No Growth after 144 hours 04/28/16 18:40 Urine,Catheterized Urine Culture - Final Assessment and Plan (1) Pancreatitis Narrative/Plan: 56-year-old male [facility] abdominal pain. Evidence of phillip pancreatitis. Also had lower extremity edema without evidence of bilateral lower extremities deep venous thrombosis and likely pulmonary in this. Currently being treated with an heparin drip has been seen by hematology. No evidence of any significant sepsis at this time. Antibiotic therapy was tailored to ceftriaxone. The cultures remain negative we'll continue to monitor we'll discontinue Rocephin. leukocytosis has resolved. Likely on the bases the pancreatitis. Actually white count trended down a bit low. Without infections , the antibiotic was discontinued. Patient was having a worsening pulmonary status Likely his acute lung injury related to his pancreatitis, as well as his DVT and PE. No evidence of any infection Rocephin is discontinued. Pulmonary status is improving today. Sitting up in a chair with high flow oxygen. Status: Acute (2) Deep venous thrombosis Status: Acute (3) Leukocytosis Status: Acute
[2016-05-06 23:25] LABS: Glucose,Whole Blood 136 mg/dL (75-99)
[2016-05-07] MEDS: INSULIN LISPRO (humaLOG) 300 UNIT/3 ML VIAL SQ SCH ×5 (02:05→21:13)
[2016-05-07 05:30] LABS: Basophils % (A) 0 %; CH 33.8; CHCM 31.2; Eosinophils % (A) 0 %; HCT 32.6 % (39.0-53.0); HDW 2.93; Hypochromasia Slight; Luc # (Auto) 0.04; Luc % (Auto) 0; Lymphocytes # (A) 0.7 k/uL (1.0-4.8); Lymphocytes % (A) 6 %; MCH 33.3 pg (25.0-35.0); MCHC 30.6 g/dL (31.0-37.0); MCV 108.8 fL (80.0-100.0); Macrocytosis Marked; Mean Platelet Volume 8.9; Monocytes # (A) 0.4 k/uL (0-1.0); Monocytes % (A) 3 %; Neutrophils # (A) 11.5 k/uL (1.3-7.7); Neutrophils % (A) 91 %; RDW 15.4 % (11.5-15.5); WBC 12.7 k/uL (3.8-10.6); WBC (Perox) 13.28
[2016-05-07 05:34] LABS: Prothrombin Time 19.6 sec (9.0-12.0)
[2016-05-07 05:40] LABS: Calcium 8.3 mg/dL (8.4-10.2); Magnesium 2.5 mg/dL (1.6-2.3)
[2016-05-07] MEDS: methylPREDNISolone SOD SUCCI 125 MG/2 ML VIAL IV SCH ×3 (06:43→17:10)
[2016-05-07] MEDS: DIVALPROEX 500 MG TABLET.DR PO SCH ×2 (06:44→17:12)
--- NOTE | 2016-05-07 06:47 | PN ---
DATE OF SERVICE: 05/06/2016 This 56-year-old gentleman who was admitted with acute severe pancreatitis with possible sepsis; also had hypoxic respiratory failure. The patient had change mental status. The patient has bilateral pleural effusion. The patient is being diuresed at this time. The patient also suspected to have pneumonia. The patient also had bilateral acute DVT of both lower legs and patient is on IV heparin. The patient is also confused, but currently the sensorium is slightly better. The p.o. intake appears to be poor. The patient is being closely monitored in ICU at this time. The patient also had atrial fibrillation. The patient also had hypoxia and necessitated BiPAP. Also Pulmonary is following the patient closely. PAST MEDICAL HISTORY: Reviewed. REVIEW OF SYSTEMS: Could not be taken as the patient is confused. Current medications are reviewed and include: 1. Tylenol 650 q.6 p.r.n. 2. Zyloprim 200 mg p.o. daily. 3. Aspirin 325 mg daily. 4. Lipitor 10 mg p.o. q.h.s. 5. Os-Faheem with vitamin D one p.o. b.i.d. 6. Coreg 25 mg b.i.d. 7. Depakote 1000 mg p.o. daily. 8. Depakote 1500 mg p.o. daily. 9. Vitamin D2, 50,000 p.o. on Wednesday. 10. Lofibra 160 mg q.h.s. 11. Iron sulfate 325 mg p.o. daily. 12. Folic acid 1 mg p.o. daily. 13. Dilaudid 0.5 q.4 p.r.n. 14. Lantus 60 units subcu q.h.s. 15. Xopenex 1.25 t.i.d. 16. Keppra 1500 mg p.o. q.a.m. 17. Solu-Medrol 60 IV q.6. 18. Nitrostat. 19. Zofran 4 mg IV q.68. 20. Protonix. 21. MiraLAX 17 gram p.o. q.h.s. 22. Ultram 50 mg p.o. q.i.d. p.r.n. 23. Effexor XR 150 mg p.o. daily. 24. Isoptin 80 mg p.o. t.i.d. PHYSICAL EXAMINATION: The patient is alert and oriented x1. Pulse 106, blood pressure 97/66, respirations 22, temperature 96.6, pulse ox 94% on room air. HEENT: Conjunctivae normal. Oral mucosa moist. Neck is obese. No jugular venous distention. No carotid bruit. No lymph node enlargement. CARDIOVASCULAR: S1 and S2, muffled. No S3, no S4. RESPIRATORY: Breath sounds diminished at the bases. Bilateral scattered rhonchi and crackles. Abdomen is soft, obese, nontender. No mass palpable. No guarding or rigidity. LEGS: No edema, no swelling. NERVOUS SYSTEM: Unchanged present. SKIN: No ulcers, rashes or bleeding. LYMPHATICS: No lymphadenopathy of neck, axillae or groin. LAB INVESTIGATIONS: WBC 12.6, hemoglobin 10.4. INR is 2.1. Glucose 222. Calcium is 8.3. Amylase less than 30. Lipase 378. ASSESSMENT: 1. Acute severe pancreatitis with possible sepsis, present on admission. 2. Acute hypoxic respiratory failure, possibly multifactorial on BiPAP intermittently with hypercapnic respiratory failure. 3. Change in mental status, metabolic encephalopathy, multifactorial. 4. Bilateral pleural effusion, left more than the right, possibly reactive. 5. Possible pneumonia, bibasilar, possibly gram-negative. 6. Hyperlipidemia with increased triglycerides. 7. Bilateral lower leg deep venous thrombosis, acute. 8. Immediate V/Q scan with possible acute pulmonary embolism. 9. Intravenous heparin monitoring. 10. Hypoalbuminemia with mild to moderate protein calorie malnutrition. 11. Coumadin coagulopathy. 12. Increased lactic acid on admission. 13. Acute on chronic renal failure with chronic kidney disease, stage III with acute renal failure secondary to acute tubular necrosis multifactorial with prerenal factors. 14. Hyperkalemia secondary to acute tubular necrosis. 15. Leukocytosis secondary to possible sepsis. 16. Obesity with body mass index 38.4. 17. History of coronary artery disease. 18. History of congestive heart failure with ejection fraction 60% to 65% with chronic diastolic dysfunction. 19. History of cerebrovascular accident, transient ischemic attack. 20. 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 21. Diabetes mellitus type 2. 22. Gastroesophageal reflux disease. 23. Hypertension. 24. History of degenerative joint disease. 25. History of seizure disorder. 26. History of peripheral vascular disease. 27. History of bibasilar atelectasis. 28. History of sacral decubitus ulcer currently unstaged pressure ulcer in the mid coccyx. 29. Bilateral pleural effusions. 30. Hyponatremia, possibly secondary to free water deficit. 31. Hypokalemia. 32. Chronic obstructive pulmonary disease. 33. Ventral hernia. 34. FULL CODE. RECOMMENDATIONS AND DISCUSSION: In this 56-year-old gentleman who presented with multiple complex medical issues, we will monitor the patient closely. Continue the current medications. Continue symptomatic treatment. Otherwise, at this time, I would recommend continue the bronchodilators. Continue with symptomatic treatment. Continue with the BiPAP. Otherwise, continue the steroids. Guarded prognosis because of multiple complex medical issues. Closely follow with Dr. Ibrahim and continue the ICU management. Further recommendations to follow. JOSSELYND
[2016-05-07] MEDS: LEVALBUTEROL NEB 1.25 MG/3 ML AMP INHALATION SCH ×3 (07:43→20:20)
[2016-05-07 08:23] LABS: Glucose,Whole Blood 103 mg/dL (75-99)
[2016-05-07] MEDS: CARVEDILOL 12.5 MG TAB PO SCH ×2 (08:24→17:12)
[2016-05-07] MEDS: ALLOPURINOL 100 MG TAB PO SCH (08:31)
[2016-05-07] MEDS: PANTOPRAZOLE 40 MG TABLET PO SCH (08:31)
[2016-05-07] MEDS: VENLAFAXINE HCL ER 150 MG CAP PO SCH (08:32)
[2016-05-07] MEDS: CALCIUM CARB-VIT D 500MG-200UN 1 EACH TAB PO SCH ×2 (08:33→21:06)
[2016-05-07] MEDS: VERAPAMIL 80 MG TAB PO SCH ×3 (08:34→21:15)
[2016-05-07] MEDS: levETIRAcetam 500 MG TAB PO SCH ×2 (08:36→17:11)
--- NOTE | 2016-05-07 09:35 | P.PN ---
Subjective Principal diagnosis: ANAI Patient is seen in follow-up for acute kidney injury on chronic any disease. Patient has chronic kidney disease stage III with baseline creatinine in the range of 1-1.5 secondary to diabetic kidney disease. Creatinine did peak at 4.2 this admission and is 1.69 today. He is currently resting in bed. He has a Grimes catheter in place and is nonoliguric. No vomiting or diarrhea. Denies chest pain. Patient was transferred to the intensive care unit on May 04 for respiratory distress and requiring high amounts of oxygen support. Overall doing better. Appetite is starting to improve. He currently doesn't have an IV access. Vital signs are stable. General: The patient appeared well nourished and normally developed. HEENT: Head exam is unremarkable. Neck is without jugular venous distension. LUNGS: Lungs are clear to auscultation and percussion. Breath sounds decreased. HEART: Rate and Rhythm are regular. First and second heart sounds normal. No murmurs, rubs or gallops. ABDOMEN: Abdominal exam reveals normal bowel sounds. Non-tender and non- distended. No evidence of peritonitis. EXTREMITITES: No clubbing, cyanosis, or edema. Objective - Vital Signs Vital signs: Vital Signs Temp 97.5 F L 05/07/16 08:00 Pulse 95 05/07/16 09:00 Resp 19 05/07/16 09:00 BP 100/65 05/07/16 09:00 Pulse Ox 97 05/07/16 09:00 Intake & Output 05/06/16 05/07/16 05/07/16 18:59 06:59 18:59 Intake Total 390 400 445 Output Total 1180 1330 295 Balance -790 -930 150 Weight 113.4 kg 115.3 kg Intake: IV 390 0 0 Dextrose 5% in Water 1, 390 0 0 000 ml @ 60 mls/hr IV . [id number] [facility] Rx#:[id number] Oral 400 445 Output: Urine 1180 1330 295 Other: Voiding Method Indwelling Catheter Indwelling Catheter Indwelling Catheter # Voids 1 # Bowel Movements 0 1 - Labs CBC & Chem 7: 05/07/16 05:08 05/07/16 05:08 Labs: Abnormal Lab Results - Last 24 Hours (Table) 05/06/16 05/06/16 05/06/16 Range/Units 12:52 17:47 19:57 WBC (3.8-10.6) k/uL RBC (4.30-5.90) m/uL Hgb (13.0-17.5) gm/dL Hct (39.0-53.0) % MCV (80.0-100.0) fL MCHC (31.0-37.0) g/dL Neutrophils # (1.3-7.7) k/uL Lymphocytes # (1.0-4.8) k/uL PT (9.0-12.0) sec Sodium (137-145) mmol/L Chloride (98-107) mmol/L BUN (9-20) mg/dL Creatinine (0.66-1.25) mg/dL Glucose (74-99) mg/dL POC Glucose (mg/dL) 159 H 137 H 183 H (75-99) mg/dL Calcium (8.4-10.2) mg/dL Magnesium (1.6-2.3) mg/dL 05/06/16 05/07/16 05/07/16 Range/Units 23:23 05:08 05:08 WBC 12.7 H (3.8-10.6) k/uL RBC 3.00 L (4.30-5.90) m/uL Hgb 10.0 L (13.0-17.5) gm/dL Hct 32.6 L (39.0-53.0) % MCV 108.8 H (80.0-100.0) fL MCHC 30.6 L (31.0-37.0) g/dL Neutrophils # 11.5 H (1.3-7.7) k/uL Lymphocytes # 0.7 L (1.0-4.8) k/uL PT 19.6 H (9.0-12.0) sec Sodium (137-145) mmol/L Chloride (98-107) mmol/L BUN (9-20) mg/dL Creatinine (0.66-1.25) mg/dL Glucose (74-99) mg/dL POC Glucose (mg/dL) 136 H (75-99) mg/dL Calcium (8.4-10.2) mg/dL Magnesium (1.6-2.3) mg/dL 05/07/16 05/07/16 Range/Units 05:08 08:20 WBC (3.8-10.6) k/uL RBC (4.30-5.90) m/uL Hgb (13.0-17.5) gm/dL Hct (39.0-53.0) % MCV (80.0-100.0) fL MCHC (31.0-37.0) g/dL Neutrophils # (1.3-7.7) k/uL Lymphocytes # (1.0-4.8) k/uL PT (9.0-12.0) sec Sodium 147 H (137-145) mmol/L Chloride 110 H (98-107) mmol/L BUN 63 H (9-20) mg/dL Creatinine 1.69 H (0.66-1.25) mg/dL Glucose 126 H (74-99) mg/dL POC Glucose (mg/dL) 103 H (75-99) mg/dL Calcium 8.3 L (8.4-10.2) mg/dL Magnesium 2.5 H (1.6-2.3) mg/dL Assessment and Plan Plan: Assessment: #1. Nonoliguric acute kidney injury secondary to ischemic ATN secondary to pancreatitis. Renal function improving with creatinine down to 1.69 today. #2. Chronic kidney disease stage III secondary to diabetic kidney disease with baseline creatinine in the range of 1-1.5. #3. Bilateral lower extremity DVTs. #4. Hypernatremia secondary to lack of free water intake. #5. Acute pancreatitis. #6. Hypokalemia secondary to increased urinary potassium losses. Magnesium replete. Improved. #7. Atrial fibrillation. Plan: Encourage oral water intake. He is not receiving D5W due to no IV access at this time. Avoid nephrotoxic agents and hypotensive episodes. Okay to discontinue Grimes catheter. Repeat electrolytes in the morning. No need for renal replacement therapy at this time.
[2016-05-07] MEDS: traMADol 50 MG TAB PO PRN (09:54)
--- NOTE | 2016-05-07 10:24 | XR ---
EXAMINATION TYPE: XR chest 1V DATE OF EXAM: 05/07/2016 8:19 AM COMPARISON: 05/06/1960 HISTORY: Shortness of breath TECHNIQUE: Single frontal view of the chest is obtained. FINDINGS: Cardiomegaly and stable left lower lobe infiltrate and small effusion. No pneumothorax. Guzman bsegmental changes involving the right lung base stable.. IMPRESSION: 1. Stable left-sided area of infiltrate and pleural effusion. 2. Minimal changes involving the right lung base are stable. Likely on the basis of atelectasis.
[2016-05-07 12:01] LABS: Glucose,Whole Blood 98 mg/dL (75-99)
[2016-05-07] MEDS: ASPIRIN 325 MG TAB PO SCH (12:07)
[2016-05-07] MEDS: DEXTROSE 5% IN WATER 1,000 ML IV SCH (12:08)
[2016-05-07] MEDS: FOLIC ACID 1 MG TAB PO SCH (12:08)
--- NOTE | 2016-05-07 15:20 | P.PN ---
Subjective Principal diagnosis: ANAI This is a 56-year-old gentleman who has paraplegia and multiple comorbidities. He was admitted with shortness of breath and chest discomfort. He was also found to have bilateral lower extremity DVTs and an indeterminate VQ scan for suspected pulmonary embolism. He is seen again today 05/07/2016 in the ICU in follow-up. His chest x-ray continues to show improvement. There is atelectatic changes in the left lung base and a small pleural effusion. There is no plans for thoracentesis at this time. He remains anticoagulated with warfarin. We will been able to gradually decrease his FiO2 requirements while maintaining O2 saturations greater than 90%. Currently down to 5 L/m per nasal cannula. Objective - Vital Signs Vital signs: Vital Signs Temp 97.5 F L 05/07/16 08:00 Pulse 92 05/07/16 13:00 Resp 18 05/07/16 13:30 BP 97/59 05/07/16 13:30 Pulse Ox 94 L 05/07/16 13:00 Intake & Output 05/06/16 05/07/16 05/07/16 18:59 06:59 18:59 Intake Total 048 863 3147 Output Total 1180 1330 530 Balance -790 -930 592 Weight 113.4 kg 115.3 kg 115.3 kg Intake: IV 390 0 240 Dextrose 5% in Water 1, 390 0 240 000 ml @ 60 mls/hr IV . [id number] [facility] Rx#:[id number] Oral 400 882 Output: Urine 1180 1330 530 Other: Voiding Method Indwelling Catheter Indwelling Catheter Indwelling Catheter # Voids 1 1 # Bowel Movements 0 1 - Exam GENERAL EXAM: Alert, fairly comfortable at rest. HEAD: Normocephalic. EYES: Normal reaction of pupils, equal size. NOSE: Clear with pink turbinates. THROAT: There is some crowding the posterior pharynx. No erythema or exudates. NECK: Short. No masses, no JVD. CHEST: No chest wall deformity. LUNGS: Equal air entry with bilateral wheezing, crackles in the posterior bases , more so on the left. Diminished. CVS: S1 and S2 normal with no audible murmurs, regular rhythm. ABDOMEN: Obese, tender in the upper quadrant. Bowel sounds are present. Extremities: There is 1-2+ lower extremity peripheral edema. No clubbing, no cyanosis. Peripheral pulses are intact. - Labs CBC & Chem 7: 05/07/16 05:08 05/07/16 05:08 Labs: Abnormal Lab Results - Last 24 Hours (Table) 05/06/16 05/06/16 05/06/16 Range/Units 17:47 19:57 23:23 WBC (3.8-10.6) k/uL RBC (4.30-5.90) m/uL Hgb (13.0-17.5) gm/dL Hct (39.0-53.0) % MCV (80.0-100.0) fL MCHC (31.0-37.0) g/dL Neutrophils # (1.3-7.7) k/uL Lymphocytes # (1.0-4.8) k/uL PT (9.0-12.0) sec Sodium (137-145) mmol/L Chloride (98-107) mmol/L BUN (9-20) mg/dL Creatinine (0.66-1.25) mg/dL Glucose (74-99) mg/dL POC Glucose (mg/dL) 137 H 183 H 136 H (75-99) mg/dL Calcium (8.4-10.2) mg/dL Magnesium (1.6-2.3) mg/dL 05/07/16 05/07/16 05/07/16 Range/Units 05:08 05:08 05:08 WBC 12.7 H (3.8-10.6) k/uL RBC 3.00 L (4.30-5.90) m/uL Hgb 10.0 L (13.0-17.5) gm/dL Hct 32.6 L (39.0-53.0) % MCV 108.8 H (80.0-100.0) fL MCHC 30.6 L (31.0-37.0) g/dL Neutrophils # 11.5 H (1.3-7.7) k/uL Lymphocytes # 0.7 L (1.0-4.8) k/uL PT 19.6 H (9.0-12.0) sec Sodium 147 H (137-145) mmol/L Chloride 110 H (98-107) mmol/L BUN 63 H (9-20) mg/dL Creatinine 1.69 H (0.66-1.25) mg/dL Glucose 126 H (74-99) mg/dL POC Glucose (mg/dL) (75-99) mg/dL Calcium 8.3 L (8.4-10.2) mg/dL Magnesium 2.5 H (1.6-2.3) mg/dL 05/07/16 Range/Units 08:20 WBC (3.8-10.6) k/uL RBC (4.30-5.90) m/uL Hgb (13.0-17.5) gm/dL Hct (39.0-53.0) % MCV (80.0-100.0) fL MCHC (31.0-37.0) g/dL Neutrophils # (1.3-7.7) k/uL Lymphocytes # (1.0-4.8) k/uL PT (9.0-12.0) sec Sodium (137-145) mmol/L Chloride (98-107) mmol/L BUN (9-20) mg/dL Creatinine (0.66-1.25) mg/dL Glucose (74-99) mg/dL POC Glucose (mg/dL) 103 H (75-99) mg/dL Calcium (8.4-10.2) mg/dL Magnesium (1.6-2.3) mg/dL Assessment and Plan Plan: Impression: #1 Acute epigastric pain secondary to pancreatitis. #2 Acute hypoxic respiratory failure secondary to acute exacerbation of suspected diastolic congestive heart failure, utilizing intermittent BiPAP. There is also a left basilar atelectasis and suspected pleural effusion. No plans for thoracentesis at this time as his oxygen requirements are decreased and he has having less symptoms of shortness of breath. #3 Acute pancreatitis. #4 Bilateral lower extremity DVT and suspected PE. #5 Paraplegia. #6 Acute on chronic renal failure, improved current creatinine 1.69. #7 Advanced chronic obstructive pulmonary disease. #8 Chronic atrial fibrillation. #9 Suspect underlying obstructive sleep apnea/obesity/hypoventilation syndrome. Plan: The patient was seen and evaluated by Dr. Ibrahim. His chest x-ray and labs were reviewed. No plans for thoracentesis at this time. We'll continue with his warfarin. Continue bronchodilators. Systemic steroids. We will continue to try to titrate down the FiO2 will maintaining O2 saturations greater than 90% . He Possibly be transferred out of the intensive care unit later today. We' ll continue to follow make further recommendations based on his clinical status.
--- NOTE | 2016-05-07 15:22 | P.PN ---
Subjective Principal diagnosis: ANAI Patient is a 56-year-old male being evaluated for acute pancreatitis with history of EtOH abuse. Patient is feeling better. No nausea or vomiting. Denies abdominal pain. Passing flatus with bowel movement today. Tolerating soft diet. Afebrile. WBC increased to 12.7. Objective - Vital Signs Vital signs: Vital Signs Temp 97.5 F L 05/07/16 08:00 Pulse 92 05/07/16 13:00 Resp 18 05/07/16 13:30 BP 97/59 05/07/16 13:30 Pulse Ox 94 L 05/07/16 13:00 Intake & Output 05/06/16 05/07/16 05/07/16 18:59 06:59 18:59 Intake Total 251 151 2176 Output Total 1180 1330 530 Balance -790 -930 592 Weight 113.4 kg 115.3 kg 115.3 kg Intake: IV 390 0 240 Dextrose 5% in Water 1, 390 0 240 000 ml @ 60 mls/hr IV . [id number] [facility] Rx#:[id number] Oral 400 882 Output: Urine 1180 1330 530 Other: Voiding Method Indwelling Catheter Indwelling Catheter Indwelling Catheter # Voids 1 1 # Bowel Movements 0 1 - Exam GENERAL: Pt awake and alert, appears in no apparent distress. LUNGS: Breath sounds diminished to auscultation bilaterally. HEART: Heart S1, S2, no S3 or S4. No murmurs, rubs or gallops. ABDOMEN: Soft, obese, nontender, mildly distended, active bowel sounds. NEUROLOGICAL: Pt oriented x 3. - Labs CBC & Chem 7: 05/07/16 05:08 05/07/16 05:08 Labs: Abnormal Lab Results - Last 24 Hours (Table) 05/06/16 05/06/16 05/06/16 Range/Units 17:47 19:57 23:23 WBC (3.8-10.6) k/uL RBC (4.30-5.90) m/uL Hgb (13.0-17.5) gm/dL Hct (39.0-53.0) % MCV (80.0-100.0) fL MCHC (31.0-37.0) g/dL Neutrophils # (1.3-7.7) k/uL Lymphocytes # (1.0-4.8) k/uL PT (9.0-12.0) sec Sodium (137-145) mmol/L Chloride (98-107) mmol/L BUN (9-20) mg/dL Creatinine (0.66-1.25) mg/dL Glucose (74-99) mg/dL POC Glucose (mg/dL) 137 H 183 H 136 H (75-99) mg/dL Calcium (8.4-10.2) mg/dL Magnesium (1.6-2.3) mg/dL 05/07/16 05/07/16 05/07/16 Range/Units 05:08 05:08 05:08 WBC 12.7 H (3.8-10.6) k/uL RBC 3.00 L (4.30-5.90) m/uL Hgb 10.0 L (13.0-17.5) gm/dL Hct 32.6 L (39.0-53.0) % MCV 108.8 H (80.0-100.0) fL MCHC 30.6 L (31.0-37.0) g/dL Neutrophils # 11.5 H (1.3-7.7) k/uL Lymphocytes # 0.7 L (1.0-4.8) k/uL PT 19.6 H (9.0-12.0) sec Sodium 147 H (137-145) mmol/L Chloride 110 H (98-107) mmol/L BUN 63 H (9-20) mg/dL Creatinine 1.69 H (0.66-1.25) mg/dL Glucose 126 H (74-99) mg/dL POC Glucose (mg/dL) (75-99) mg/dL Calcium 8.3 L (8.4-10.2) mg/dL Magnesium 2.5 H (1.6-2.3) mg/dL 05/07/16 Range/Units 08:20 WBC (3.8-10.6) k/uL RBC (4.30-5.90) m/uL Hgb (13.0-17.5) gm/dL Hct (39.0-53.0) % MCV (80.0-100.0) fL MCHC (31.0-37.0) g/dL Neutrophils # (1.3-7.7) k/uL Lymphocytes # (1.0-4.8) k/uL PT (9.0-12.0) sec Sodium (137-145) mmol/L Chloride (98-107) mmol/L BUN (9-20) mg/dL Creatinine (0.66-1.25) mg/dL Glucose (74-99) mg/dL POC Glucose (mg/dL) 103 H (75-99) mg/dL Calcium (8.4-10.2) mg/dL Magnesium (1.6-2.3) mg/dL Assessment and Plan Plan: Impression: 1. Acute pancreatitis, improved. 2. Ventral hernia containing fat only. Plan: 1. Continue to monitor patient. Continue diet per GI. Continue IV hydration. Continue supportive treatment and pain management. Continue to follow with primary service and consultants. Patient is not a surgical candidate at this time. The above impression and plan have been discussed and directed by Dr. Murry. Dayana VICENTE acting as scribe for Dr. Murry.
[2016-05-07 17:10] LABS: Glucose,Whole Blood 122 mg/dL (75-99)
[2016-05-07] MEDS: FERROUS SULFATE 325 MG TAB PO SCH (17:12)
[2016-05-07] MEDS ORDERED: WARFARIN 1 MG TAB PO ONE (18:00)
--- NOTE | 2016-05-07 21:04 | PN ---
Mr. Tariq still has some pleural effusion and Dr. Ibrahim is considering thoracentesis. He remains in atrial fibrillation. Rate control is optimal on current medications. His INR is 2.0. Cardiac-oseguera I have new specific recommendations. I would continue the same medications and keep an eye on the PT, INR. Physical exam revealed blood pressure of 130/70. Pulse rate is about 80 to 90. S1, S2 heard normally. Irregular rate and rhythm noted. Short systolic murmur noted. Lungs reveal diminished air entry. Abdomen is distended. Lower extremities reveal diminished air entry in bilateral lung bello, more so on the left. Abdomen is distended. Lower extremities reveal diminished pulses with trace edema. Central nervous system revealed weakness of both lower extremities. From a cardiac standpoint, I have no new specific suggestions. Anticoagulation is being addressed by Dr. Ibrahim, since he may be doing some thoracentesis.
[2016-05-07] MEDS: ATORVASTATIN 10 MG TAB PO SCH (21:05)
[2016-05-07] MEDS: FENOFIBRATE 160 MG TAB PO SCH (21:06)
[2016-05-07] MEDS: INSULIN GLARGINE 100 UNIT/ML 10 ML VIAL SQ SCH (21:11)
[2016-05-07 21:14] LABS: Glucose,Whole Blood 165 mg/dL (75-99)
[2016-05-07] MEDS: POLYETHYLENE GLYCOL 3350 17 GM POWD.PACK PO SCH (21:14)
--- NOTE | 2016-05-07 22:14 | P.PN ---
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 Patient is known to ID service as he was seen in May 2015 at which time he was treated for cellulitis of the right lower extremity. At that time he underwent duplex study that was negative for DVT, x-ray that showed potential for abscess and CAT scan of the lower extremity was done that failed to reveal an abscess and was negative for osteomyelitis. He was treated with local wound care with Silvadene and he was discharged on oral Bactrim. Patient currently resides at [facility]. He states he had a sudden onset of chest pain on the left side while he was watching TV. It was sharp with a 5 out of 10 with mild shortness of breath. Patient was transferred to [facility] where he received 4 baby aspirin and 3 nitroglycerin that did not change his pain. His d -dimer was slightly elevated at 0.73. BUN was 26 and creatinine 1.8. It appears patient's baseline creatinine is 1.5-1.7. He was afebrile. Troponin was 0.017. He was given 1 L of IV fluids and there was concern for pulmonary embolism and patient was transferred to [facility] for VQ scan. Patient was admitted to the selective care unit. Unfortunately he was unable to complete the VQ scan. However, venous Dopplers of the bilateral lower extremities were positive on both sides. He underwent a chest x-ray that showed left lower lobe atelectasis or infiltrate and cardiomegaly. CAT scan of the abdomen and pelvis revealed acute pancreatitis. He subsequently underwent x -ray films that showed possible obstruction or ileus. Patient's last bowel movement was apparently 2 days ago. Repeat lab work showed leukocytosis of 16.4 , lactic acid 2.4 and BUN 43 with creatinine 3.5. Albumin 3.2. Potassium was 6.06 and he is status post Kayexalate. His heart rate has been running 120-130 since admission. He has the following consultations in place cardiology, pulmonary medicine, nephrology, surgery. Amylase was 632 and lipase 13,509. Patient continues to have left upper quadrant lower rib pain. He does complain of nausea without vomiting. He denies any diarrhea. He denies any cough or sputum reduction. He states he has shortness of breath all the time and he normally has rapid respirations per the patient area he denies any problems with his legs that he is aware of. He is incontinent of urine. Seems to be slightly improved today. More awake and alert. Knows that he is Ruchi Marin. Was able to state my name. Abdominal pains improved." Bowel movements occurred. diarrheas improved and not thought to have C. diff. Respiratory status has remained a significant difficulty. He is now been on BiPAP consistently. In the BiPAP was required increasing amounts of settings to maintain a saturation. Because he is being transferred intensive care unit at this time. For ongoing pulmonary management. Acute lung injury from his pancreatitis appears to be occurring. Has been up in a chair today. Is on high flow oxygen at 5 L Objective - Vital Signs Vital signs: Vital Signs Temp 97.5 F L 05/07/16 20:00 Pulse 68 05/07/16 21:00 Resp 20 05/07/16 21:00 BP 99/65 05/07/16 21:00 Pulse Ox 92 L 05/07/16 21:00 Intake & Output 05/07/16 05/07/16 05/08/16 06:59 18:59 06:59 Intake Total 400 1949 120 Output Total 1330 850 200 Balance -930 1099 -80 Weight 115.3 kg 115.3 kg Intake: IV 0 540 120 Dextrose 5% in Water 1, 0 540 120 000 ml @ 60 mls/hr IV . [id number] [facility] Rx#:[id number] Oral 400 1409 Output: Urine 1330 850 200 Other: Voiding Method Indwelling Catheter Indwelling Catheter Indwelling Catheter # Voids 1 # Bowel Movements 1 - Exam Gen: This is a obese 56-year-old male. Sitting up in a chair with high flow oxygen HEENT: Head is atraumatic, normocephalic. Pupils equal, round. Sclerae is anicteric. Conjunctiva pink. Mucous membranes of the mouth are moist. No thrush noted. NECK: Supple. No JVD. No lymphadenopathy. No thyromegaly. LUNGS: Symmetrical air entry is noted. There are basilar crackles. Few expiratory wheezes are heard. No phillip bronchial sounds are noted. Egophony could not be evaluated HEART: Regular rate and rhythm. No murmur. ABDOMEN: Slightly distended. Bowel sounds are present. Generalized tenderness to the entire abdomen less tender to the left upper quadrant today. EXTREMITIES: Trace bilateral pedal edema. No erythema or wounds noted to the bilateral lower extremities NEUROLOGICAL: Patient is awake and alert interactive feeling better - Labs CBC & Chem 7: 05/07/16 05:08 05/07/16 05:08 Labs: Abnormal Lab Results - Last 24 Hours (Table) 05/06/16 05/07/16 05/07/16 Range/Units 23:23 05:08 05:08 WBC 12.7 H (3.8-10.6) k/uL RBC 3.00 L (4.30-5.90) m/uL Hgb 10.0 L (13.0-17.5) gm/dL Hct 32.6 L (39.0-53.0) % MCV 108.8 H (80.0-100.0) fL MCHC 30.6 L (31.0-37.0) g/dL Neutrophils # 11.5 H (1.3-7.7) k/uL Lymphocytes # 0.7 L (1.0-4.8) k/uL PT 19.6 H (9.0-12.0) sec Sodium (137-145) mmol/L Chloride (98-107) mmol/L BUN (9-20) mg/dL Creatinine (0.66-1.25) mg/dL Glucose (74-99) mg/dL POC Glucose (mg/dL) 136 H (75-99) mg/dL Calcium (8.4-10.2) mg/dL Magnesium (1.6-2.3) mg/dL 05/07/16 05/07/16 05/07/16 Range/Units 05:08 08:20 17:09 WBC (3.8-10.6) k/uL RBC (4.30-5.90) m/uL Hgb (13.0-17.5) gm/dL Hct (39.0-53.0) % MCV (80.0-100.0) fL MCHC (31.0-37.0) g/dL Neutrophils # (1.3-7.7) k/uL Lymphocytes # (1.0-4.8) k/uL PT (9.0-12.0) sec Sodium 147 H (137-145) mmol/L Chloride 110 H (98-107) mmol/L BUN 63 H (9-20) mg/dL Creatinine 1.69 H (0.66-1.25) mg/dL Glucose 126 H (74-99) mg/dL POC Glucose (mg/dL) 103 H 122 H (75-99) mg/dL Calcium 8.3 L (8.4-10.2) mg/dL Magnesium 2.5 H (1.6-2.3) mg/dL 05/07/16 Range/Units 21:12 WBC (3.8-10.6) k/uL RBC (4.30-5.90) m/uL Hgb (13.0-17.5) gm/dL Hct (39.0-53.0) % MCV (80.0-100.0) fL MCHC (31.0-37.0) g/dL Neutrophils # (1.3-7.7) k/uL Lymphocytes # (1.0-4.8) k/uL PT (9.0-12.0) sec Sodium (137-145) mmol/L Chloride (98-107) mmol/L BUN (9-20) mg/dL Creatinine (0.66-1.25) mg/dL Glucose (74-99) mg/dL POC Glucose (mg/dL) 165 H (75-99) mg/dL Calcium (8.4-10.2) mg/dL Magnesium (1.6-2.3) mg/dL Laboratory Results WBC 12.7 k/uL (3.8-10.6) H 05/07/16 05:08 RBC 3.00 m/uL (4.30-5.90) L 05/07/16 05:08 Hgb 10.0 gm/dL (13.0-17.5) L 05/07/16 05:08 Hct 32.6 % (39.0-53.0) L 05/07/16 05:08 MCV 108.8 fL (80.0-100.0) H 05/07/16 05:08 MCH 33.3 pg (25.0-35.0) 05/07/16 05:08 MCHC 30.6 g/dL (31.0-37.0) L 05/07/16 05:08 RDW 15.4 % (11.5-15.5) 05/07/16 05:08 Plt Count 248 k/uL (150-450) 05/07/16 05:08 Neutrophils % 91 % 05/07/16 05:08 Neutrophils % (Manual) 46.0 % 05/03/16 02:43 Band Neutrophils % 30.5 % 05/03/16 02:43 Lymphocytes % 6 % 05/07/16 05:08 Lymphocytes % (Manual) 16.5 % 05/03/16 02:43 Monocytes % 3 % 05/07/16 05:08 Monocytes % (Manual) 6.0 % 05/03/16 02:43 Eosinophils % 0 % 05/07/16 05:08 Eosinophils % (Manual) 0.5 % 05/01/16 05:40 Basophils % 0 % 05/07/16 05:08 Metamyelocytes % 1.0 % 05/03/16 02:43 Myelocytes % 0.5 % 04/30/16 05:38 Neutrophils # 11.5 k/uL (1.3-7.7) H 05/07/16 05:08 Neutrophils # (Manual) 3.9 k/uL (1.3-7.7) 05/03/16 02:43 Lymphocytes # 0.7 k/uL (1.0-4.8) L 05/07/16 05:08 Lymphocytes # (Manual) 0.8 k/uL (1.0-4.8) L 05/03/16 02:43 Monocytes # 0.4 k/uL (0-1.0) 05/07/16 05:08 Monocytes # (Manual) 0.3 k/uL (0-1.0) 05/03/16 02:43 Eosinophils # 0.0 k/uL (0-0.7) 05/07/16 05:08 Eosinophils # (Manual) 0.0 k/uL (0-0.7) 05/01/16 05:40 Basophils # 0.0 k/uL (0-0.2) 05/07/16 05:08 Nucleated RBCs 1 /100 WBC (0-0) H 05/03/16 02:43 Manual Slide Review Performed 04/30/16 05:38 Toxic Granulation Present 04/29/16 05:42 Toxic Vacuolation Present 04/29/16 05:42 Large Platelets Present 05/03/16 02:43 Polychromasia Present 05/03/16 02:43 Hypochromasia Slight 05/07/16 05:08 Poikilocytosis (manual Present 05/03/16 02:43 Anisocytosis (manual) Present 05/03/16 02:43 Macrocytosis Marked 05/07/16 05:08 PT 19.6 sec (9.0-12.0) H 05/07/16 05:08 INR 2.0 (<1.1) 05/07/16 05:08 APTT 89.5 sec (22.0-30.0) H 05/04/16 05:52 D-Dimer 2.06 mg/L FEU (<0.60) H 04/27/16 10:33 Sample Site RRAD 05/05/16 10:04 ABG pH 7.39 (7.35-7.45) 05/05/16 10:04 ABG pCO2 34 mmHg (35-45) L 05/05/16 10:04 ABG pO2 99 mmHg (83-108) 05/05/16 10:04 ABG HCO3 20 mmol/L (21-25) L 05/05/16 10:04 ABG Total CO2 21 mmol/L (19-24) 05/05/16 10:04 ABG O2 Saturation 98.0 % (94-97) H 05/05/16 10:04 ABG Base Excess -4.0 mmol/L 05/05/16 10:04 FiO2 80 % 05/05/16 10:04 Sodium 147 mmol/L (137-145) H 05/07/16 05:08 Potassium 4.0 mmol/L (3.5-5.1) 05/07/16 05:08 Chloride 110 mmol/L (98-107) H 05/07/16 05:08 Carbon Dioxide 26 mmol/L (22-30) 05/07/16 05:08 Anion Gap 11 mmol/L 05/07/16 05:08 BUN 63 mg/dL (9-20) H 05/07/16 05:08 Creatinine 1.69 mg/dL (0.66-1.25) H 05/07/16 05:08 Est GFR (MDRD) Af Amer 51 (>60 ml/min/1.73 sqM) 05/07/16 05:08 Est GFR (MDRD) Non-Af 42 (>60 ml/min/1.73 sqM) 05/07/16 05:08 Glucose 126 mg/dL (74-99) H 05/07/16 05:08 POC Glucose (mg/dL) 165 mg/dL (75-99) H 05/07/16 21:12 POC Glu Television Writer ID [place] 05/07/16 21:[address] Glu mg/dL 151 mg/dL 04/28/16 10:44 Hemoglobin A1c 6.9 % (4.2-6.1) H 04/28/16 10:44 Plasma Lactic Acid [place] 1.1 mmol/L (0.7-2.0) 05/07/16 08:16 Calcium 8.3 mg/dL (8.4-10.2) L 05/07/16 05:08 Phosphorus 4.0 mg/dL (2.5-4.5) 05/07/16 05:08 Magnesium 2.5 mg/dL (1.6-2.3) H 05/07/16 05:08 Total Bilirubin 0.6 mg/dL (0.2-1.3) 05/03/16 02:43 AST 31 U/L (17-59) 05/03/16 02:43 ALT 29 U/L (21-72) 05/03/16 02:43 Alkaline Phosphatase 37 U/L (38-126) L 05/03/16 02:43 Total Creatine Kinase 64 U/L (55-170) 04/27/16 16:08 CK-MB (CK-2) 0.5 ng/mL (0.0-2.4) 04/27/16 16:08 CK-MB (CK-2) Rel Index 0.8 04/27/16 16:08 Troponin I <0.012 ng/mL (0.000-0.034) 04/27/16 16:08 NT-Pro-B Natriuret Pep 7950 pg/mL 05/03/16 02:43 Total Protein 5.0 g/dL (6.3-8.2) L 05/03/16 02:43 Albumin 2.3 g/dL (3.5-5.0) L 05/03/16 02:43 Triglycerides 235 mg/dL (<150) H 04/28/16 06:08 Cholesterol 120 mg/dL (<200) 04/28/16 06:08 LDL Cholesterol, Calc 46 mg/dL (0-99) 04/28/16 06:08 HDL Cholesterol 27 mg/dL (40-60) L 04/28/16 06:08 Amylase <30 U/L (30-110) L 05/06/16 04:28 Lipase 378 U/L (23-300) H 05/06/16 04:28 Urine Color Yellow 04/28/16 18:40 Urine Appearance Cloudy (Clear) 04/28/16 18:40 Urine pH 5.5 (5.0-8.0) 04/28/16 18:40 Ur Specific [place] 1.018 (1.001-1.035) 04/28/16 18:40 Urine Protein 2+ (Negative) H 04/28/16 18:40 Urine Glucose (UA) Trace (Negative) H 04/28/16 18:40 Urine Ketones Trace (Negative) H 04/28/16 18:40 Urine Blood Negative (Negative) 04/28/16 18:40 Urine Nitrate Negative (Negative) 04/28/16 18:40 Urine Bilirubin Negative (Negative) 04/28/16 18:40 Urine Urobilinogen <2.0 mg/dL (<2.0) 04/28/16 18:40 Ur Leukocyte Esterase Small (Negative) H 04/28/16 18:40 Urine WBC 26 /hpf (0-5) H 04/28/16 18:40 Amorphous Sediment Occasional /hpf (None) H 04/28/16 18:40 Hyaline Casts 22 /lpf (0-2) H 04/28/16 18:40 Granular Casts 19 /lpf (0) 04/28/16 18:40 Urine Mucus Rare /hpf (None) H 04/28/16 18:40 Hepatitis A IgM Ab NEGATIVE 04/28/16 21:50 Hep Bs Antigen Negative 04/28/16 21:50 Hep B Core IgM Ab NEGATIVE 04/28/16 21:50 Hep C IgG Ab Negative (Negative) 04/28/16 21:50 Microbiology 04/28/16 22:00 Blood Blood Culture - Final No Growth after 144 hours 04/28/16 12:15 Blood Blood Culture - Final No Growth after 144 hours 04/28/16 18:40 Urine,Catheterized Urine Culture - Final Assessment and Plan (1) Pancreatitis Narrative/Plan: 56-year-old male presents to [facility] abdominal pain. Evidence of phillip pancreatitis. Also had lower extremity edema without evidence of bilateral lower extremities deep venous thrombosis and likely pulmonary in this. Currently being treated with an heparin drip has been seen by hematology. No evidence of any significant sepsis at this time. Antibiotic therapy was tailored to ceftriaxone. The cultures remain negative we'll continue to monitor we'll discontinue Rocephin. leukocytosis has resolved. Likely on the bases the pancreatitis. Actually white count trended down a bit low. Without infections , the antibiotic was discontinued. Patient was having a worsening pulmonary status Likely his acute lung injury related to his pancreatitis, as well as his DVT and PE. No evidence of any infection Rocephin is discontinued. Pulmonary status is improving today. Sitting up in a chair with high flow oxygen and a decreasing amount. BiPAP for nighttime. Overall improvement. Status: Acute (2) Deep venous thrombosis Status: Acute (3) Leukocytosis Status: Acute
[2016-05-07] MEDS: HYDROmorphone 1 MG/ML 1 ML SYRINGE IVP PRN (22:42)
[2016-05-08] MEDS: methylPREDNISolone SOD SUCCI 125 MG/2 ML VIAL IV SCH ×4 (01:13→17:04)
[2016-05-08] MEDS: INSULIN LISPRO (humaLOG) 300 UNIT/3 ML VIAL SQ SCH ×5 (03:26→21:58)
[2016-05-08] MEDS: DEXTROSE 5% IN WATER 1,000 ML IV SCH ×2 (03:27→20:11)
[2016-05-08 05:27] LABS: Basophils % (A) 0 %; CH 33.5; CHCM 31.1; Eosinophils % (A) 0 %; HCT 31.6 % (39.0-53.0); HDW 2.93; HGB 9.9 gm/dL (13.0-17.5); Hypochromasia Slight; Luc # (Auto) 0.02; Luc % (Auto) 0; Lymphocytes # (A) 0.5 k/uL (1.0-4.8); Lymphocytes % (A) 4 %; MCH 33.9 pg (25.0-35.0); MCHC 31.4 g/dL (31.0-37.0); Macrocytosis Marked; Monocytes # (A) 0.2 k/uL (0-1.0); Monocytes % (A) 2 %; Neutrophils # (A) 12.8 k/uL (1.3-7.7); Neutrophils % (A) 95 %; RBC 2.92 m/uL (4.30-5.90); RDW 15.4 % (11.5-15.5); WBC 13.6 k/uL (3.8-10.6); WBC (Perox) 14.25
[2016-05-08 05:33] LABS: Prothrombin Time 19.1 sec (9.0-12.0)
[2016-05-08 05:38] LABS: Calcium 8.4 mg/dL (8.4-10.2); Magnesium 2.5 mg/dL (1.6-2.3); Phosphorous 4.5 mg/dL (2.5-4.5); Potassium 4.4 mmol/L (3.5-5.1)
[2016-05-08 05:50] LABS: Manual Review Performed
[2016-05-08 05:51] LABS: Large Platelets Present; Polychromasia Present
[2016-05-08] MEDS: DIVALPROEX 500 MG TABLET.DR PO SCH ×2 (06:14→16:45)
[2016-05-08] MEDS: LEVALBUTEROL NEB 1.25 MG/3 ML AMP INHALATION SCH ×3 (08:32→20:01)
[2016-05-08] MEDS: PANTOPRAZOLE 40 MG TABLET PO SCH (08:57)
[2016-05-08] MEDS: ALLOPURINOL 100 MG TAB PO SCH (08:58)
[2016-05-08] MEDS: CARVEDILOL 12.5 MG TAB PO SCH ×2 (08:58→16:46)
[2016-05-08] MEDS: ASPIRIN 325 MG TAB PO SCH (08:58)
[2016-05-08] MEDS: levETIRAcetam 500 MG TAB PO SCH ×2 (08:59→16:46)
[2016-05-08] MEDS: CALCIUM CARB-VIT D 500MG-200UN 1 EACH TAB PO SCH ×2 (08:59→20:20)
[2016-05-08] MEDS: VERAPAMIL 40 MG TAB PO SCH ×3 (08:59→20:21)
[2016-05-08] MEDS: VENLAFAXINE HCL ER 150 MG CAP PO SCH (09:00)
--- NOTE | 2016-05-08 09:19 | PN ---
DATE OF SERVICE: 05/07/2016 This 56 -year-old gentleman was admitted with acute severe pancreatitis with possible sepsis also had hypoxic respiratory failure and the patient also had change in mental status. The patient also had bilateral pleural effusion. The patient also had a bilateral acute DVT also on IV Heparin. The patient also had Coumadin coagulopathy after starting Coumadin. The patient was monitored in the ICU because of hypoxic respiratory failure by Dr. Ibrahim. The patient also had hypoxia and as well as BIPAP. Patient is being closely monitored. Sensorium is definitely increased. The patient also had paraparesis from acute anterior cerebral artery, previously. PAST MEDICAL HISTORY: Reviewed. REVIEW OF SYSTEMS: CARDIOVASCULAR: No angina or palpitations. GI: As mentioned earlier. : No dysuria. Nervous system: No numbness Medications are reviewed and include: 1. Tylenol 650 q.6 p.r.n. 2. Zyloprim 200 mg daily. 3. Aspirin 320 mg daily. 4. Lipitor 10 mg q.h.s. 5. Os-Faheem with Vitamin D one p.o. b.i.d. 6. Coreg 25 mg a.c. b.i.d. 7. Depakote 1000 mg daily and mg p.o. daily. 8. Vitamin D daily. 9. Lofibra 160 q.h.s. 10. Iron sulfate. 11. Folic acid. 12. Dilaudid. 13. Lantus. 14. Xopenex. 15. Keppra. PHYSICAL EXAMINATION: Patient is alert and oriented times three. Pulse 68, blood pressure 99/64, respiratory 20, temperature 97.7, pulse ox 92% on 60% FIO2. HEENT: Conjunctivae normal. Oral mucosa moist. NECK: No jugular venous distention. No carotid bruit. No lymph node enlargement. CARDIOVASCULAR SYSTEM: S1, S2 muffled. S3, no S4. RESPIRATORY: Breath sounds diminished at bases. Bilateral scattered rhonchi and crackles. ABDOMEN: Soft, obese, nontender. No mass palpable. Legs: No edema, no swelling. Nervous system: Higher functions as mentioned earlier. Moves all four limbs. No focal deficits. LYMPHATICS: No lymph nodes palpable in the neck, axillae or groin. SKIN: No ulcer, rash or bleeding. LABS: WBC hemoglobin is 10 and glucose 165. ASSESSMENT: 1. Acute severe pancreatitis with possible sepsis, present on admission. 2. Acute hypoxic respiratory failure, possibly multifactorial on BiPAP intermittently with hypercapnic respiratory failure. 3. Change in mental status, metabolic encephalopathy, multifactorial. 4. Bilateral pleural effusion, left more than the right reactive, possible pneumonia, bibasilar possibly gram-negative. 5. Hyperlipidemia with increased triglycerides. 6. Bilateral lower leg deep venous thrombosis, acute. 7. Intermediate VQ scan with possible acute pulmonary embolism and intravenous heparin monitoring. 8. Hypoalbuminemia with mild to moderate protein calorie malnutrition. 9. Coumadin coagulopathy. 10. Increased lactic acid on admission. 11. Acute on chronic renal failure with chronic kidney disease, stage III with acute renal failure, possibly acute tubular necrosis, multifactorial with prerenal factors. 12. Hyperkalemia secondary to acute tubular necrosis, present on admission. 13. Leukocytosis secondary to possible sepsis. 14. Obesity with body mass index of 38.4. 15. History of coronary artery disease. 16. History of congestive heart failure with ejection fraction 60-65% with chronic diastolic dysfunction. 17. History of cerebrovascular accident/transient ischemic attack. 18. History of paraplegia secondary to anterior cerebral artery infarction and aneurysm. 19. Diabetes mellitus type 2. 20. Gastroesophageal reflux disease. 21. Hypertension. 22. History of degenerative joint disease. 23. History of seizure disorder. 24. History of peripheral vascular disease. 25. Bibasilar atelectasis. 26. Sacral decubitus ulcer currently unstageable. 27. Bilateral pleural effusion possibly reactive. 28. Hyponatremia, possibly secondary to free water deficit. 29. Hypokalemia. 30. Chronic obstructive pulmonary disease. 31. Hiatal hernia. 32. FULL CODE. RECOMMENDATIONS AND DISCUSSION: Recommend to continue the current medications, continue with monitoring, symptomatic treatment. Continue bronchodilators. Continue BIPAP p.r.n. Otherwise, repeat follow-up labs. Creatinine 1.6. Sugars elevated. Closely follow with pulmonary as well as multiple other consultants. Guarded prognosis. Further recommendations to follow. [facility]
--- NOTE | 2016-05-08 09:30 | P.PN ---
Subjective Principal diagnosis: ANAI Patient is seen in follow-up for acute kidney injury on chronic any disease. Patient has chronic kidney disease stage III with baseline creatinine in the range of 1-1.5 secondary to diabetic kidney disease. Creatinine did peak at 4.2 this admission and is stable at 1.62 today. He is currently resting in bed. He has a Grimes catheter in place and is nonoliguric. No vomiting or diarrhea. Denies chest pain. Patient was transferred to the intensive care unit on May 04 for respiratory distress and requiring high amounts of oxygen support. Overall doing better. Appetite is starting to improve. Vital signs are stable. General: The patient appeared well nourished and normally developed. HEENT: Head exam is unremarkable. Neck is without jugular venous distension. LUNGS: Lungs are clear to auscultation and percussion. Breath sounds decreased. HEART: Rate and Rhythm are regular. First and second heart sounds normal. No murmurs, rubs or gallops. ABDOMEN: Abdominal exam reveals normal bowel sounds. Non-tender and non- distended. No evidence of peritonitis. EXTREMITITES: No clubbing, cyanosis, or edema. Objective - Vital Signs Vital signs: Vital Signs Temp 97.4 F L 05/08/16 08:00 Pulse 69 05/08/16 09:00 Resp 34 H 05/08/16 09:00 BP 140/98 05/08/16 09:00 Pulse Ox 88 L 05/08/16 09:00 Intake & Output 05/07/16 05/08/16 05/08/16 18:59 06:59 18:59 Intake Total 1949 720 Output Total 850 910 Balance 1099 -190 Weight 115.3 kg 113 kg Intake: IV 540 720 Dextrose 5% in Water 1, 540 720 000 ml @ 60 mls/hr IV . [id number] [facility] Rx#:[id number] Oral 1409 Output: Urine 850 910 Other: Voiding Method Indwelling Catheter Indwelling Catheter Indwelling Catheter # Voids 1 # Bowel Movements 1 - Labs CBC & Chem 7: 05/08/16 05:06 05/08/16 05:06 Labs: Abnormal Lab Results - Last 24 Hours (Table) 05/07/16 05/07/16 05/08/16 Range/Units 17:09 21:12 05:06 WBC 13.6 H (3.8-10.6) k/uL RBC 2.92 L (4.30-5.90) m/uL Hgb 9.9 L (13.0-17.5) gm/dL Hct 31.6 L (39.0-53.0) % MCV 108.0 H (80.0-100.0) fL Neutrophils # 12.8 H (1.3-7.7) k/uL Lymphocytes # 0.5 L (1.0-4.8) k/uL PT (9.0-12.0) sec Chloride (98-107) mmol/L BUN (9-20) mg/dL Creatinine (0.66-1.25) mg/dL Glucose (74-99) mg/dL POC Glucose (mg/dL) 122 H 165 H (75-99) mg/dL Magnesium (1.6-2.3) mg/dL 05/08/16 05/08/16 Range/Units 05:06 05:06 WBC (3.8-10.6) k/uL RBC (4.30-5.90) m/uL Hgb (13.0-17.5) gm/dL Hct (39.0-53.0) % MCV (80.0-100.0) fL Neutrophils # (1.3-7.7) k/uL Lymphocytes # (1.0-4.8) k/uL PT 19.1 H (9.0-12.0) sec Chloride 109 H (98-107) mmol/L BUN 62 H (9-20) mg/dL Creatinine 1.62 H (0.66-1.25) mg/dL Glucose 166 H (74-99) mg/dL POC Glucose (mg/dL) (75-99) mg/dL Magnesium 2.5 H (1.6-2.3) mg/dL Assessment and Plan Plan: Assessment: #1. Nonoliguric acute kidney injury secondary to ischemic ATN secondary to pancreatitis. Renal function improving with creatinine down to 1.62 today. #2. Chronic kidney disease stage III secondary to diabetic kidney disease with baseline creatinine in the range of 1-1.5. #3. Bilateral lower extremity DVTs. #4. Hypernatremia secondary to lack of free water intake. #5. Acute pancreatitis. #6. Hypokalemia secondary to increased urinary potassium losses. Magnesium replete. Improved. #7. Atrial fibrillation. Plan: Encourage oral water intake. D5W may be discontinued tomorrow. Avoid nephrotoxic agents and hypotensive episodes. Okay to discontinue Grimes catheter. Repeat electrolytes in the morning. No need for renal replacement therapy at this time.
[2016-05-08] MEDS: FOLIC ACID 1 MG TAB PO SCH (12:35)
[2016-05-08] MEDS: ERGOCALCIFEROL 50,000 UNIT CAP PO SCH (12:35)
--- NOTE | 2016-05-08 12:56 | PN ---
Mr. Tariq is in sinus rhythm today. He is doing well, hemodynamically stable. I am recommending that we decrease the verapamil to 40 mg t.i.d. His pleural effusion seems to be persist, but is better today. S1, S2 heard normally. Lungs reveal diminished air entry, especially on the left side. Abdomen is soft. Lower extremities reveal diminished pulses bilateral, 1+ edema. Central nervous system reveals lower extremity weakness, which is unchanged.
[2016-05-08 13:39] LABS: Glucose,Whole Blood 134 mg/dL (75-99)
[2016-05-08 13:40] LABS: Glucose,Whole Blood 139 mg/dL (75-99)
[2016-05-08 13:42] LABS: Glucose,Whole Blood 188 mg/dL (75-99)
--- NOTE | 2016-05-08 15:11 | P.PN ---
Subjective Principal diagnosis: ANAI This is a 56-year-old gentleman who has paraplegia and multiple comorbidities. He was admitted with shortness of breath and chest discomfort. He was also found to have bilateral lower extremity DVTs and an indeterminate VQ scan for suspected pulmonary embolism. He remains anticoagulated with warfarin. Current INR 2.0. He is seen again today 05/08/2016 in the ICU in follow-up. His chest x-ray continues to show improvement. There is atelectatic changes in the left lung base and a small pleural effusion. There is no plans for thoracentesis at this time. He remains anticoagulated with warfarin. We will been able to gradually decrease his FiO2 requirements while maintaining O2 saturations greater than 90%. Currently down to 5 L/m per nasal cannula. He remains afebrile. Blood cultures and urine cultures are negative. Objective - Vital Signs Vital signs: Vital Signs Temp 97.4 F L 05/08/16 12:00 Pulse 73 05/08/16 14:00 Resp 25 H 05/08/16 14:00 BP 131/63 05/08/16 14:00 Pulse Ox 95 05/08/16 14:00 Intake & Output 05/07/16 05/08/16 05/08/16 18:59 06:59 18:59 Intake Total 1949 720 540 Output Total 850 910 575 Balance 1099 -190 -35 Weight 115.3 kg 113 kg Intake: IV 540 720 540 Dextrose 5% in Water 1, 540 720 540 000 ml @ 60 mls/hr IV . [id number] [facility] Rx#:[id number] Oral 1409 Output: Urine 850 910 575 Other: Voiding Method Indwelling Catheter Indwelling Catheter Indwelling Catheter # Voids 1 # Bowel Movements 1 - Exam GENERAL EXAM: Alert, fairly comfortable at rest. HEAD: Normocephalic. EYES: Normal reaction of pupils, equal size. NOSE: Clear with pink turbinates. THROAT: There is some crowding the posterior pharynx. No erythema or exudates. NECK: Short. No masses, no JVD. CHEST: No chest wall deformity. LUNGS: Equal air entry with bilateral wheezing, crackles in the posterior bases , more so on the left. Diminished. CVS: S1 and S2 normal with no audible murmurs, regular rhythm. ABDOMEN: Obese, tender in the upper quadrant. Bowel sounds are present. Extremities: There is 1-2+ lower extremity peripheral edema. No clubbing, no cyanosis. Peripheral pulses are intact. - Labs CBC & Chem 7: 05/08/16 05:06 05/08/16 05:06 Labs: Abnormal Lab Results - Last 24 Hours (Table) 05/07/16 05/07/16 05/08/16 Range/Units 17:09 21:12 03:25 WBC (3.8-10.6) k/uL RBC (4.30-5.90) m/uL Hgb (13.0-17.5) gm/dL Hct (39.0-53.0) % MCV (80.0-100.0) fL Neutrophils # (1.3-7.7) k/uL Lymphocytes # (1.0-4.8) k/uL PT (9.0-12.0) sec Chloride (98-107) mmol/L BUN (9-20) mg/dL Creatinine (0.66-1.25) mg/dL Glucose (74-99) mg/dL POC Glucose (mg/dL) 122 H 165 H 134 H (75-99) mg/dL Magnesium (1.6-2.3) mg/dL 05/08/16 05/08/16 05/08/16 Range/Units 05:06 05:06 05:06 WBC 13.6 H (3.8-10.6) k/uL RBC 2.92 L (4.30-5.90) m/uL Hgb 9.9 L (13.0-17.5) gm/dL Hct 31.6 L (39.0-53.0) % MCV 108.0 H (80.0-100.0) fL Neutrophils # 12.8 H (1.3-7.7) k/uL Lymphocytes # 0.5 L (1.0-4.8) k/uL PT 19.1 H (9.0-12.0) sec Chloride 109 H (98-107) mmol/L BUN 62 H (9-20) mg/dL Creatinine 1.62 H (0.66-1.25) mg/dL Glucose 166 H (74-99) mg/dL POC Glucose (mg/dL) (75-99) mg/dL Magnesium 2.5 H (1.6-2.3) mg/dL 12/23/16 12/23/16 Range/Units 07:29 12:53 WBC (3.8-10.6) k/uL RBC (4.30-5.90) m/uL Hgb (13.0-17.5) gm/dL Hct (39.0-53.0) % MCV (80.0-100.0) fL Neutrophils # (1.3-7.7) k/uL Lymphocytes # (1.0-4.8) k/uL PT (9.0-12.0) sec Chloride (98-107) mmol/L BUN (9-20) mg/dL Creatinine (0.66-1.25) mg/dL Glucose (74-99) mg/dL POC Glucose (mg/dL) 139 H 188 H (75-99) mg/dL Magnesium (1.6-2.3) mg/dL Assessment and Plan Plan: Impression: #1 Acute epigastric pain secondary to pancreatitis. #2 Acute hypoxic respiratory failure secondary to acute exacerbation of suspected diastolic congestive heart failure, utilizing intermittent BiPAP. There is also a left basilar atelectasis and suspected pleural effusion. No plans for thoracentesis at this time as his oxygen requirements are decreased and he has having less symptoms of shortness of breath. #3 Acute pancreatitis. #4 Bilateral lower extremity DVT and suspected PE. Anticoagulated with warfarin , current INR 2.0. #5 Paraplegia. #6 Acute on chronic renal failure, improved current creatinine 1.69. #7 Advanced chronic obstructive pulmonary disease. #8 Chronic atrial fibrillation. #9 Suspect underlying obstructive sleep apnea/obesity/hypoventilation syndrome. Plan: The patient was seen and evaluated by Dr. Ibrahim. His chest x-ray and labs were reviewed. No plans for thoracentesis at this time. We'll continue with his warfarin. Continue bronchodilators. Systemic steroids. We will continue to try to titrate down the FiO2 will maintaining O2 saturations greater than 90 % currently on 5 L/m per nasal cannula. He can be transferred out of the intensive care unit today. We'll continue to follow make further recommendations based on his clinical status.
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
[2016-05-08] MEDS: FERROUS SULFATE 325 MG TAB PO SCH (16:45)
[2016-05-08 16:46] LABS: Glucose,Whole Blood 250 mg/dL (75-99)
[2016-05-08] MEDS: HYDROmorphone 1 MG/ML 1 ML SYRINGE IVP PRN ×2 (17:26→20:03)
[2016-05-08] MEDS ORDERED: WARFARIN 2 MG TAB PO ONE (18:00)
[2016-05-08] MEDS: ATORVASTATIN 10 MG TAB PO SCH (20:20)
[2016-05-08] MEDS: FENOFIBRATE 160 MG TAB PO SCH (20:21)
[2016-05-08] MEDS: POLYETHYLENE GLYCOL 3350 17 GM POWD.PACK PO SCH (20:21)
[2016-05-08 21:18] LABS: Glucose,Whole Blood 180 mg/dL (75-99)
[2016-05-08] MEDS: INSULIN GLARGINE 100 UNIT/ML 10 ML VIAL SQ SCH (21:58)
--- NOTE | 2016-05-08 22:51 | P.PN ---
Subjective Principal diagnosis: respirtory failure This is a 56-year-old male who has a past mental history is significant for cerebral aneurysm leading to paraplegia. Patient is known to ID service as he was seen in May 2015 at which time he was treated for cellulitis of the right lower extremity. At that time he underwent duplex study that was negative for DVT, x-ray that showed potential for abscess and CAT scan of the lower extremity was done that failed to reveal an abscess and was negative for osteomyelitis. He was treated with local wound care with Silvadene and he was discharged on oral Bactrim. Patient currently resides at [facility]. He states he had a sudden onset of chest pain on the left side while he was watching TV. It was sharp with a 5 out of 10 with mild shortness of breath. Patient was transferred to [facility] where he received 4 baby aspirin and 3 nitroglycerin that did not change his pain. His d -dimer was slightly elevated at 0.73. BUN was 26 and creatinine 1.8. It appears patient's baseline creatinine is 1.5-1.7. He was afebrile. Troponin was 0.017. He was given 1 L of IV fluids and there was concern for pulmonary embolism and patient was transferred to [facility] for VQ scan. Patient was admitted to the selective care unit. Unfortunately he was unable to complete the VQ scan. However, venous Dopplers of the bilateral lower extremities were positive on both sides. He underwent a chest x-ray that showed left lower lobe atelectasis or infiltrate and cardiomegaly. CAT scan of the abdomen and pelvis revealed acute pancreatitis. He subsequently underwent x -ray films that showed possible obstruction or ileus. Patient's last bowel movement was apparently 2 days ago. Repeat lab work showed leukocytosis of 16.4 , lactic acid 2.4 and BUN 43 with creatinine 3.5. Albumin 3.2. Potassium was 6.06 and he is status post Kayexalate. His heart rate has been running 120-130 since admission. He has the following consultations in place cardiology, pulmonary medicine, nephrology, surgery. Amylase was 632 and lipase 13,509. Patient continues to have left upper quadrant lower rib pain. He does complain of nausea without vomiting. He denies any diarrhea. He denies any cough or sputum reduction. He states he has shortness of breath all the time and he normally has rapid respirations per the patient area he denies any problems with his legs that he is aware of. He is incontinent of urine. Seems to be slightly improved today. More awake and alert. Knows that he is Ruchi Marin. Was able to state my name. Abdominal pains improved." Bowel movements occurred. diarrheas improved and not thought to have C. diff. Respiratory status has remained a significant difficulty. He is now been on BiPAP consistently. In the BiPAP was required increasing amounts of settings to maintain a saturation. Because he is being transferred intensive care unit at this time. For ongoing pulmonary management. Acute lung injury from his pancreatitis appears to be occurring. Has been up in a chair today. Is on high flow oxygen at 5 L Objective - Vital Signs Vital signs: Vital Signs Temp 97.8 F 05/08/16 16:00 Pulse 68 05/08/16 20:14 Resp 22 05/08/16 16:00 BP 140/70 05/08/16 16:00 Pulse Ox 98 05/08/16 16:00 Intake & Output 05/08/16 05/08/16 05/09/16 06:59 18:59 06:59 Intake Total 720 840 Output Total 910 575 Balance -190 265 Weight 113 kg Intake: IV 720 540 Dextrose 5% in Water 1, 720 540 000 ml @ 60 mls/hr IV . [id number] [facility] Rx#:[id number] Oral 300 Output: Urine 910 575 Other: Voiding Method Indwelling Catheter Urinal - Exam Gen: This is a obese 56-year-old male. Sitting up in a chair with high flow oxygen HEENT: Head is atraumatic, normocephalic. Pupils equal, round. Sclerae is anicteric. Conjunctiva pink. Mucous membranes of the mouth are moist. No thrush noted. NECK: Supple. No JVD. No lymphadenopathy. No thyromegaly. LUNGS: Symmetrical air entry is noted. There are basilar crackles. Few expiratory wheezes are heard. No phillip bronchial sounds are noted. Egophony could not be evaluated HEART: Regular rate and rhythm. No murmur. ABDOMEN: Slightly distended. Bowel sounds are present. Generalized tenderness to the entire abdomen less tender to the left upper quadrant today. EXTREMITIES: Trace bilateral pedal edema. No erythema or wounds noted to the bilateral lower extremities NEUROLOGICAL: Patient is awake and alert interactive feeling better - Labs CBC & Chem 7: 05/08/16 05:06 05/08/16 05:06 Labs: Abnormal Lab Results - Last 24 Hours (Table) 05/08/16 05/08/16 05/08/16 Range/Units 03:25 05:06 05:06 WBC 13.6 H (3.8-10.6) k/uL RBC 2.92 L (4.30-5.90) m/uL Hgb 9.9 L (13.0-17.5) gm/dL Hct 31.6 L (39.0-53.0) % MCV 108.0 H (80.0-100.0) fL Neutrophils # 12.8 H (1.3-7.7) k/uL Lymphocytes # 0.5 L (1.0-4.8) k/uL PT 19.1 H (9.0-12.0) sec Chloride (98-107) mmol/L BUN (9-20) mg/dL Creatinine (0.66-1.25) mg/dL Glucose (74-99) mg/dL POC Glucose (mg/dL) 134 H (75-99) mg/dL Magnesium (1.6-2.3) mg/dL 05/08/16 05/08/16 05/08/16 Range/Units 05:06 07:29 12:53 WBC (3.8-10.6) k/uL RBC (4.30-5.90) m/uL Hgb (13.0-17.5) gm/dL Hct (39.0-53.0) % MCV (80.0-100.0) fL Neutrophils # (1.3-7.7) k/uL Lymphocytes # (1.0-4.8) k/uL PT (9.0-12.0) sec Chloride 109 H (98-107) mmol/L BUN 62 H (9-20) mg/dL Creatinine 1.62 H (0.66-1.25) mg/dL Glucose 166 H (74-99) mg/dL POC Glucose (mg/dL) 139 H 188 H (75-99) mg/dL Magnesium 2.5 H (1.6-2.3) mg/dL 05/08/16 05/08/16 Range/Units 16:41 21:00 WBC (3.8-10.6) k/uL RBC (4.30-5.90) m/uL Hgb (13.0-17.5) gm/dL Hct (39.0-53.0) % MCV (80.0-100.0) fL Neutrophils # (1.3-7.7) k/uL Lymphocytes # (1.0-4.8) k/uL PT (9.0-12.0) sec Chloride (98-107) mmol/L BUN (9-20) mg/dL Creatinine (0.66-1.25) mg/dL Glucose (74-99) mg/dL POC Glucose (mg/dL) 250 H 180 H (75-99) mg/dL Magnesium (1.6-2.3) mg/dL Assessment and Plan (1) Pancreatitis Narrative/Plan: 56-year-old [facility] abdominal [facility]. Evidence of phillip pancreatitis. Also had lower extremity edema without evidence of bilateral lower extremities deep venous thrombosis and likely pulmonary in this. Currently being treated with an heparin drip has been seen by hematology. No evidence of any significant sepsis at this time. Antibiotic therapy was tailored to ceftriaxone. The cultures remain negative we'll continue to monitor we'll discontinue Rocephin. leukocytosis has resolved. Likely on the bases the pancreatitis. Actually white count trended down a bit low. Without infections , the antibiotic was discontinued. Patient was having a worsening pulmonary status Likely his acute lung injury related to his pancreatitis, as well as his DVT and PE. No evidence of any infection Rocephin is discontinued. Pulmonary status is improving today. Sitting up in a chair with high flow oxygen and a decreasing amount. BiPAP for nighttime. Overall improvement. Status: Acute (2) Deep venous thrombosis Status: Acute (3) Leukocytosis Status: Acute
[2016-05-09] MEDS: methylPREDNISolone SOD SUCCI 125 MG/2 ML VIAL IV SCH ×3 (01:10→12:01)
[2016-05-09 03:37] LABS: Glucose,Whole Blood 141 mg/dL (75-99)
[2016-05-09] MEDS: INSULIN LISPRO (humaLOG) 300 UNIT/3 ML VIAL SQ SCH ×5 (05:36→20:30)
[2016-05-09 06:25] LABS: Glucose,Whole Blood 125 mg/dL (75-99)
[2016-05-09 06:33] LABS: INR 2.3 (<1.1); Prothrombin Time 22.6 sec (9.0-12.0)
[2016-05-09 06:41] LABS: ALT 32 U/L (21-72); AST 21 U/L (17-59); Alkaline Phosphatase 67 U/L (38-126); Anion Gap 11 mmol/L; Blood Urea Nitrogen 62 mg/dL (9-20); Calcium 8.2 mg/dL (8.4-10.2); Carbon Dioxide 25 mmol/L (22-30); Chloride 108 mmol/L (98-107); Glucose 126 mg/dL (74-99); Magnesium 2.6 mg/dL (1.6-2.3); Non-African American GFR(MDRD) 57 (>60 ml/min/1.73 sqM); Phosphorous 4.5 mg/dL (2.5-4.5); Potassium 4.4 mmol/L (3.5-5.1); Sodium 144 mmol/L (137-145); Total Bilirubin 0.4 mg/dL (0.2-1.3); Total Protein 4.2 g/dL (6.3-8.2)
[2016-05-09 06:58] LABS: Basophils % (A) 0 %; CH 33.4; CHCM 31.1; Eosinophils % (A) 0 %; HCT 32.3 % (39.0-53.0); HDW 2.91; HGB 10.3 gm/dL (13.0-17.5); Hypochromasia Slight; Luc # (Auto) 0.02; Luc % (Auto) 0; Lymphocytes # (A) 0.4 k/uL (1.0-4.8); Lymphocytes % (A) 3 %; MCH 34.2 pg (25.0-35.0); MCHC 31.8 g/dL (31.0-37.0); MCV 107.6 fL (80.0-100.0); Macrocytosis Marked; Mean Platelet Volume 8.1; Monocytes # (A) 0.3 k/uL (0-1.0); Monocytes % (A) 2 %; Neutrophils # (A) 12.2 k/uL (1.3-7.7); Neutrophils % (A) 95 %; RDW 15.2 % (11.5-15.5); WBC 12.8 k/uL (3.8-10.6); WBC (Perox) 13.64
[2016-05-09] MEDS: DIVALPROEX 500 MG TABLET.DR PO SCH ×2 (07:13→17:30)
[2016-05-09] MEDS: PANTOPRAZOLE 40 MG TABLET PO SCH (07:14)
[2016-05-09] MEDS: CARVEDILOL 12.5 MG TAB PO SCH ×2 (07:14→17:29)
[2016-05-09 07:39] LABS: Polychromasia Present
[2016-05-09] MEDS: traMADol 50 MG TAB PO PRN ×2 (07:43→15:21)
[2016-05-09] MEDS: ALLOPURINOL 100 MG TAB PO SCH (07:44)
[2016-05-09] MEDS: CALCIUM CARB-VIT D 500MG-200UN 1 EACH TAB PO SCH ×2 (07:44→22:26)
[2016-05-09] MEDS: ASPIRIN 325 MG TAB PO SCH (07:44)
[2016-05-09] MEDS: VERAPAMIL 40 MG TAB PO SCH ×3 (07:44→22:27)
[2016-05-09] MEDS: levETIRAcetam 500 MG TAB PO SCH ×2 (07:45→17:26)
[2016-05-09] MEDS: VENLAFAXINE HCL ER 150 MG CAP PO SCH (07:45)
[2016-05-09] MEDS: LEVALBUTEROL NEB 1.25 MG/3 ML AMP INHALATION SCH ×3 (08:19→20:16)
[2016-05-09] MEDS ORDERED: LACTULOSE 20 GM/30 ML CUP PO ONE (11:50)
[2016-05-09 11:54] LABS: Glucose,Whole Blood 83 mg/dL (75-99)
--- NOTE | 2016-05-09 11:54 | P.PN ---
Subjective Principal diagnosis: Acute kidney injury with pancreatitis Aristeo is seen in consultation because of acute kidney injury secondary to severe pancreatitis. His creatinine is continuing to go improved and is down to 1.3 this morning. His creatinine baseline is 1.5 but had in the interim worsened He is able to eat no nausea vomiting no abdominal pain complains of constipation for about 2 or 3 days. Other than this no significant other complaints he is paraplegic and is chronically bedridden. He also had bilateral DVTs. 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 Objective - Vital Signs Vital signs: Vital Signs Temp 97.6 F 05/09/16 11:23 Pulse 75 05/09/16 11:23 Resp 22 05/09/16 11:23 BP 144/70 05/09/16 11:23 Pulse Ox 95 05/09/16 11:23 Intake & Output 05/08/16 05/09/16 05/09/16 18:59 06:59 18:59 Intake Total 840 840 190 Output Total 575 1600 Balance 265 -760 190 Weight 116.3 kg Intake: IV 540 240 Dextrose 5% in Water 1, 540 240 000 ml @ 60 mls/hr IV . [id number] [facility] Rx#:[id number] Oral 300 600 190 Output: Urine 575 1600 Other: Voiding Method Urinal Urinal Urinal # Voids 0 On examination he is on O2 by nasal cannula. Awake alert oriented 3. Is paraplegic. Lungs are clear to auscultation and percussion fair air entry bilaterally. Heart sounds are unremarkable for any murmur rub gallop he is known with atrial fibrillation. Abdomen soft nontender nondistended all sounds are present but somewhat diminished. Extremity exam reveals minimal edema Neurologically awake alert oriented 3 with paraplegia. - Labs CBC & Chem 7: 05/09/16 05:37 05/09/16 05:37 Labs: Abnormal Lab Results - Last 24 Hours (Table) 05/08/16 05/08/16 05/08/16 Range/Units 03:25 07:29 12:53 WBC (3.8-10.6) k/uL RBC (4.30-5.90) m/uL Hgb (13.0-17.5) gm/dL Hct (39.0-53.0) % MCV (80.0-100.0) fL Neutrophils # (1.3-7.7) k/uL Lymphocytes # (1.0-4.8) k/uL PT (9.0-12.0) sec Chloride (98-107) mmol/L BUN (9-20) mg/dL Creatinine (0.66-1.25) mg/dL Glucose (74-99) mg/dL POC Glucose (mg/dL) 134 H 139 H 188 H (75-99) mg/dL Calcium (8.4-10.2) mg/dL Magnesium (1.6-2.3) mg/dL Total Protein (6.3-8.2) g/dL Albumin (3.5-5.0) g/dL 05/08/16 05/08/16 05/09/16 Range/Units 16:41 21:00 03:17 WBC (3.8-10.6) k/uL RBC (4.30-5.90) m/uL Hgb (13.0-17.5) gm/dL Hct (39.0-53.0) % MCV (80.0-100.0) fL Neutrophils # (1.3-7.7) k/uL Lymphocytes # (1.0-4.8) k/uL PT (9.0-12.0) sec Chloride (98-107) mmol/L BUN (9-20) mg/dL Creatinine (0.66-1.25) mg/dL Glucose (74-99) mg/dL POC Glucose (mg/dL) 250 H 180 H 141 H (75-99) mg/dL Calcium (8.4-10.2) mg/dL Magnesium (1.6-2.3) mg/dL Total Protein (6.3-8.2) g/dL Albumin (3.5-5.0) g/dL 05/09/16 05/09/16 05/09/16 Range/Units 05:37 05:37 05:37 WBC 12.8 H (3.8-10.6) k/uL RBC 3.00 L (4.30-5.90) m/uL Hgb 10.3 L (13.0-17.5) gm/dL Hct 32.3 L (39.0-53.0) % MCV 107.6 H (80.0-100.0) fL Neutrophils # 12.2 H (1.3-7.7) k/uL Lymphocytes # 0.4 L (1.0-4.8) k/uL PT 22.6 H (9.0-12.0) sec Chloride 108 H (98-107) mmol/L BUN 62 H (9-20) mg/dL Creatinine 1.30 H (0.66-1.25) mg/dL Glucose 126 H (74-99) mg/dL POC Glucose (mg/dL) (75-99) mg/dL Calcium 8.2 L (8.4-10.2) mg/dL Magnesium 2.6 H (1.6-2.3) mg/dL Total Protein 4.2 L (6.3-8.2) g/dL Albumin 2.2 L (3.5-5.0) g/dL 05/09/16 Range/Units 06:17 WBC (3.8-10.6) k/uL RBC (4.30-5.90) m/uL Hgb (13.0-17.5) gm/dL Hct (39.0-53.0) % MCV (80.0-100.0) fL Neutrophils # (1.3-7.7) k/uL Lymphocytes # (1.0-4.8) k/uL PT (9.0-12.0) sec Chloride (98-107) mmol/L BUN (9-20) mg/dL Creatinine (0.66-1.25) mg/dL Glucose (74-99) mg/dL POC Glucose (mg/dL) 125 H (75-99) mg/dL Calcium (8.4-10.2) mg/dL Magnesium (1.6-2.3) mg/dL Total Protein (6.3-8.2) g/dL Albumin (3.5-5.0) g/dL Assessment and Plan Plan: Impression. 1. Acute kidney injury secondary to pancreatitis, creatinine is improved from a high of 4.23 on 04/29/2016 to 1.3 as of this morning. Good urine output 2. Baseline creatinine 1.5 with chronic kidney disease secondary to possible diabetic nephropathy with 2+ protein and nephrosclerosis. 3. Bilateral DVTs. Recommendation. We will sign off the case please call us if necessary. Recommend keep a watch on his blood pressure urine output and labs.
[2016-05-09] MEDS: FOLIC ACID 1 MG TAB PO SCH (12:01)
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
--- NOTE | 2016-05-09 14:56 | PN ---
Mr. Hull remains in A. fib, controlled rate. Hemodynamically stable. His PT, INR is acceptable. He is resting comfortably without symptoms. Vital signs are stable. S1 and S2 heard normally, irregular rate and rhythm noted. Heart rate is well controlled. Lungs reveal diminished air entry over both bases. Abdomen and lower extremity exam unchanged. He is stable from a cardiac standpoint. His A. fib rate is well controlled and he is well anticoagulated. I will see this patient as needed from a cardiac standpoint.
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
[2016-05-09 17:12] LABS: Glucose,Whole Blood 72 mg/dL (75-99)
[2016-05-09] MEDS: PHENAZOPYRIDINE 100 MG TAB PO SCH ×2 (17:27→22:27)
[2016-05-09] MEDS: FERROUS SULFATE 325 MG TAB PO SCH (17:28)
[2016-05-09] MEDS: TAMSULOSIN 0.4 MG CAP.ER.24H PO SCH (17:30)
[2016-05-09] MEDS ORDERED: WARFARIN 1 MG TAB PO ONE (18:00)
[2016-05-09 20:35] LABS: Glucose,Whole Blood 43 mg/dL (75-99)
[2016-05-09 20:57] LABS: Glucose,Whole Blood 48 mg/dL (75-99)
[2016-05-09] MEDS: INSULIN GLARGINE 100 UNIT/ML 10 ML VIAL SQ SCH ×2 (21:00→22:26)
[2016-05-09 21:35] LABS: Glucose,Whole Blood 54 mg/dL (75-99)
[2016-05-09 21:52] LABS: Glucose,Whole Blood 81 mg/dL (75-99)
[2016-05-09] MEDS: FENOFIBRATE 160 MG TAB PO SCH (22:25)
[2016-05-09] MEDS: ATORVASTATIN 10 MG TAB PO SCH (22:25)
[2016-05-09] MEDS: methylPREDNISolone SOD SUCCI 40 MG/ML 1 ML VIAL IV SCH (22:26)
[2016-05-09] MEDS: POLYETHYLENE GLYCOL 3350 17 GM POWD.PACK PO SCH (22:26)
[2016-05-10] MEDS: INSULIN LISPRO (humaLOG) 300 UNIT/3 ML VIAL SQ SCH ×5 (02:08→21:31)
[2016-05-10 02:10] LABS: Glucose,Whole Blood 176 mg/dL (75-99)
[2016-05-10 06:00] LABS: Prothrombin Time 28.8 sec (9.0-12.0)
[2016-05-10 06:09] LABS: Anion Gap 11 mmol/L; Blood Urea Nitrogen 59 mg/dL (9-20); Calcium 8.6 mg/dL (8.4-10.2); Carbon Dioxide 25 mmol/L (22-30); Chloride 110 mmol/L (98-107); Glucose 222 mg/dL (74-99); Magnesium 2.6 mg/dL (1.6-2.3); Non-African American GFR(MDRD) 52 (>60 ml/min/1.73 sqM); Phosphorous 4.7 mg/dL (2.5-4.5); Sodium 146 mmol/L (137-145)
[2016-05-10 06:11] LABS: Potassium 5.5 mmol/L (3.5-5.1)
[2016-05-10 06:13] LABS: Basophils # (A) 0.1 k/uL (0-0.2); Basophils % (A) 0 %; CH 33.4; CHCM 29.9; Eosinophils % (A) 0 %; HCT 34.8 % (39.0-53.0); HDW 2.84; HGB 10.8 gm/dL (13.0-17.5); Hypochromasia Marked; Luc # (Auto) 0.05; Luc % (Auto) 0; Lymphocytes # (A) 0.4 k/uL (1.0-4.8); Lymphocytes % (A) 2 %; MCH 34.8 pg (25.0-35.0); MCHC 31.1 g/dL (31.0-37.0); Macrocytosis Marked; Mean Platelet Volume 9.7; Monocytes # (A) 1.3 k/uL (0-1.0); Monocytes % (A) 7 %; Neutrophils # (A) 17.5 k/uL (1.3-7.7); Neutrophils % (A) 91 %; RDW 15.5 % (11.5-15.5); WBC 19.3 k/uL (3.8-10.6); WBC (Perox) 20.58
[2016-05-10 06:39] LABS: Glucose,Whole Blood 230 mg/dL (75-99)
[2016-05-10] MEDS: PANTOPRAZOLE 40 MG TABLET PO SCH (06:39)
[2016-05-10] MEDS: DIVALPROEX 500 MG TABLET.DR PO SCH ×2 (06:40→17:13)
[2016-05-10] MEDS: CARVEDILOL 12.5 MG TAB PO SCH ×2 (06:40→17:13)
[2016-05-10 06:48] LABS: Manual Review Performed
[2016-05-10 06:49] LABS: Polychromasia Present
[2016-05-10] MEDS: LEVALBUTEROL NEB 1.25 MG/3 ML AMP INHALATION SCH ×3 (08:24→20:48)
[2016-05-10] MEDS: levETIRAcetam 500 MG TAB PO SCH ×2 (09:49→17:13)
[2016-05-10] MEDS: VENLAFAXINE HCL ER 150 MG CAP PO SCH (09:49)
[2016-05-10] MEDS: VERAPAMIL 40 MG TAB PO SCH ×3 (09:49→21:31)
[2016-05-10] MEDS: PHENAZOPYRIDINE 100 MG TAB PO SCH ×3 (09:49→21:31)
[2016-05-10] MEDS: CALCIUM CARB-VIT D 500MG-200UN 1 EACH TAB PO SCH ×2 (09:50→21:31)
[2016-05-10] MEDS: ALLOPURINOL 100 MG TAB PO SCH (09:50)
[2016-05-10] MEDS: methylPREDNISolone SOD SUCCI 40 MG/ML 1 ML VIAL IV SCH ×2 (09:50→21:32)
[2016-05-10 11:56] LABS: Glucose,Whole Blood 168 mg/dL (75-99)
[2016-05-10] MEDS: FOLIC ACID 1 MG TAB PO SCH (12:06)
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
[2016-05-10] MEDS: FERROUS SULFATE 325 MG TAB PO SCH (17:13)
[2016-05-10] MEDS: TAMSULOSIN 0.4 MG CAP.ER.24H PO SCH (17:14)
[2016-05-10 17:25] LABS: Glucose,Whole Blood 120 mg/dL (75-99)
[2016-05-10 20:41] LABS: Glucose,Whole Blood 159 mg/dL (75-99)
[2016-05-10] MEDS: ATORVASTATIN 10 MG TAB PO SCH (21:30)
[2016-05-10] MEDS: FENOFIBRATE 160 MG TAB PO SCH (21:31)
[2016-05-10] MEDS: POLYETHYLENE GLYCOL 3350 17 GM POWD.PACK PO SCH (21:31)
[2016-05-10] MEDS: INSULIN GLARGINE 100 UNIT/ML 10 ML VIAL SQ SCH (21:34)
[2016-05-11 02:02] LABS: Glucose,Whole Blood 134 mg/dL (75-99)
[2016-05-11] MEDS: INSULIN LISPRO (humaLOG) 300 UNIT/3 ML VIAL SQ SCH ×5 (02:14→21:26)
[2016-05-11 05:53] LABS: Glucose,Whole Blood 111 mg/dL (75-99)
[2016-05-11] MEDS: CARVEDILOL 12.5 MG TAB PO SCH ×2 (06:56→16:18)
[2016-05-11] MEDS: DIVALPROEX 500 MG TABLET.DR PO SCH ×2 (06:56→16:18)
[2016-05-11] MEDS: PANTOPRAZOLE 40 MG TABLET PO SCH (06:57)
--- NOTE | 2016-05-11 07:47 | XR ---
EXAMINATION TYPE: XR chest 1V portable DATE OF EXAM: 05/11/2016 7:36 AM CLINICAL HISTORY: Difficulty breathing progress study. TECHNIQUE: Single AP portable upright view of the chest is obtained. COMPARISON: Chest x-ray from May 07, 2016. Chest CT May 03, 2016. FINDINGS: Cardiomegaly is redemonstrated. There is chronic emphysematous change with small left grea ter than right pleural effusions and left basilar opacity consistent with infiltrate and/or atelectas is all redemonstrated. No new focal airspace opacity or pneumothorax is seen bilaterally. Osseous str uctures are intact. IMPRESSION: Overall stable findings, chronic emphysematous change and cardiomegaly with small bilat eral pleural effusions and left basilar atelectasis and/or infiltrate all redemonstrated.
[2016-05-11] MEDS: methylPREDNISolone SOD SUCCI 40 MG/ML 1 ML VIAL IV SCH ×2 (08:21→20:43)
[2016-05-11] MEDS: VERAPAMIL 40 MG TAB PO SCH ×3 (08:21→20:44)
[2016-05-11] MEDS: levETIRAcetam 500 MG TAB PO SCH ×2 (08:22→16:18)
[2016-05-11] MEDS: ALLOPURINOL 100 MG TAB PO SCH (08:22)
[2016-05-11] MEDS: CALCIUM CARB-VIT D 500MG-200UN 1 EACH TAB PO SCH ×2 (08:22→20:43)
[2016-05-11] MEDS: PHENAZOPYRIDINE 100 MG TAB PO SCH ×3 (08:23→20:43)
[2016-05-11] MEDS: VENLAFAXINE HCL ER 150 MG CAP PO SCH (08:23)
[2016-05-11] MEDS: LEVALBUTEROL NEB 1.25 MG/3 ML AMP INHALATION SCH ×4 (09:04→23:09)
[2016-05-11 09:18] LABS: Prothrombin Time 29.4 sec (9.0-12.0)
--- NOTE | 2016-05-11 09:33 | P.PN ---
Subjective Principal diagnosis: Acute kidney injury with pancreatitis Aristeo is seen in consultation because of acute kidney injury secondary to severe pancreatitis. Is a paraplegic and bedridden. This morning he sees is coughing. Denies any fever chills. Mildly short of breath. Currently he is getting a breathing treatment. His appetite is poor. Though his creatinine is stable at 1.3 day before yesterday and 1.4 yesterday but his sodium has gone up from 144-146. Obviously is not eating and drinking Other than this no significant other complaints he is paraplegic and is chronically bedridden. He also had bilateral DVTs. 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 Objective - Vital Signs Vital signs: Vital Signs Temp 97 F L 05/11/16 08:00 Pulse 80 05/11/16 09:06 Resp 18 05/11/16 08:00 BP 166/77 05/11/16 08:00 Pulse Ox 92 L 05/11/16 08:00 Intake & Output 05/10/16 05/11/16 05/11/16 18:59 06:59 18:59 Intake Total 150 120 Balance 150 120 Weight 113.6 kg Intake: IV 0 Dextrose 5% in Water 1, 0 000 ml @ 60 mls/hr IV . [id number] [facility] Rx#:[id number] Oral 150 120 Other: Voiding Method Urinal Urinal Urinal # Voids 2 # Bowel Movements 3 On examination is awake alert oriented. HEENT exam difficult to examine. Neck is supple no facial asymmetry Lungs are significant for diminished air entry bilaterally is paraplegic and bedridden. Heart sounds are unremarkable for any murmur rub gallop. Abdomen soft nontender bowel sounds are somewhat diminished. No organomegaly masses felt. Extremity exam reveals minimal edema. Neurologically awake alert oriented paraplegia chronically. - Labs CBC & Chem 7: 05/10/16 05:21 05/10/16 05:21 Labs: Abnormal Lab Results - Last 24 Hours (Table) 05/10/16 05/10/16 05/10/16 Range/Units 11:45 17:08 20:39 PT (9.0-12.0) sec POC Glucose (mg/dL) 168 H 120 H 159 H (75-99) mg/dL 05/11/16 05/11/16 05/11/16 Range/Units 01:59 05:51 08:50 PT 29.4 H (9.0-12.0) sec POC Glucose (mg/dL) 134 H 111 H (75-99) mg/dL Assessment and Plan Plan: Impression. 1. Acute kidney injury secondary to pancreatitis, creatinine is improved from a high of 4.23 on 04/29/2016 to 1.3 as of 05/09/2016 day before yesterday and 1.4 yesterday. No labs available today. Urine output is not well document. 2. Baseline creatinine 1.5 with chronic kidney disease secondary to possible diabetic nephropathy with 2+ protein and nephrosclerosis. 3. Bilateral DVTs. 4. Hyponatremia secondary to poor intake and mild chronic kidney disease. He may be also losing free water through excessive tachypnea. 5. Mild hyperkalemia secondary to high blood sugar, concurrent blood sugar was 222 with a potassium of 5.5 Recommendation. Push oral fluids especially water. Repeat labs today to follow of the creatinine and the sodium, and the hyperkalemia. Control blood sugar better.
[2016-05-11 09:58] LABS: Anion Gap 12 mmol/L; Blood Urea Nitrogen 56 mg/dL (9-20); Calcium 9.2 mg/dL (8.4-10.2); Carbon Dioxide 27 mmol/L (22-30); Chloride 112 mmol/L (98-107); Glucose 106 mg/dL (74-99); Non-African American GFR(MDRD) 53 (>60 ml/min/1.73 sqM); Potassium 5.3 mmol/L (3.5-5.1); Sodium 151 mmol/L (137-145)
[2016-05-11 11:14] VITALS: BMI 37.0
[2016-05-11] MEDS: FOLIC ACID 1 MG TAB PO SCH (11:26)
[2016-05-11 11:35] LABS: Glucose,Whole Blood 97 mg/dL (75-99)
[2016-05-11] MEDS: DEXTROSE 5% IN WATER 1,000 ML IV SCH (12:15)
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
[2016-05-11] MEDS: TAMSULOSIN 0.4 MG CAP.ER.24H PO SCH (16:18)
[2016-05-11] MEDS: FERROUS SULFATE 325 MG TAB PO SCH (16:18)
[2016-05-11 17:22] LABS: Glucose,Whole Blood 170 mg/dL (75-99)
[2016-05-11] MEDS: ATORVASTATIN 10 MG TAB PO SCH (20:44)
[2016-05-11] MEDS: POLYETHYLENE GLYCOL 3350 17 GM POWD.PACK PO SCH (20:44)
[2016-05-11] MEDS: FENOFIBRATE 160 MG TAB PO SCH (20:44)
[2016-05-11 21:06] LABS: Glucose,Whole Blood 163 mg/dL (75-99)
[2016-05-11] MEDS: INSULIN GLARGINE 100 UNIT/ML 10 ML VIAL SQ SCH (21:26)
[2016-05-12 05:42] LABS: Glucose,Whole Blood 87 mg/dL (75-99)
[2016-05-12] MEDS: INSULIN LISPRO (humaLOG) 300 UNIT/3 ML VIAL SQ SCH ×5 (06:09→21:38)
[2016-05-12] MEDS: DIVALPROEX 500 MG TABLET.DR PO SCH ×2 (07:14→16:02)
[2016-05-12] MEDS: LEVALBUTEROL NEB 1.25 MG/3 ML AMP INHALATION SCH ×3 (07:15→19:43)
[2016-05-12 07:30] LABS: Glucose,Whole Blood 99 mg/dL (75-99)
[2016-05-12] MEDS: ALLOPURINOL 100 MG TAB PO SCH (08:23)
[2016-05-12] MEDS: levETIRAcetam 500 MG TAB PO SCH ×2 (08:23→16:02)
[2016-05-12] MEDS: PHENAZOPYRIDINE 100 MG TAB PO SCH ×3 (08:24→21:38)
[2016-05-12] MEDS: methylPREDNISolone SOD SUCCI 40 MG/ML 1 ML VIAL IV SCH ×2 (08:24→21:38)
[2016-05-12] MEDS: CALCIUM CARB-VIT D 500MG-200UN 1 EACH TAB PO SCH ×2 (08:24→21:38)
[2016-05-12] MEDS: VENLAFAXINE HCL ER 150 MG CAP PO SCH (08:24)
[2016-05-12] MEDS: VERAPAMIL 40 MG TAB PO SCH ×3 (08:24→21:38)
[2016-05-12] MEDS: PANTOPRAZOLE 40 MG TABLET PO SCH (08:24)
[2016-05-12] MEDS: CARVEDILOL 12.5 MG TAB PO SCH ×2 (08:24→16:02)
[2016-05-12 08:30] LABS: ALT 33 U/L (21-72); AST 30 U/L (17-59); Alkaline Phosphatase 68 U/L (38-126); Anion Gap 9 mmol/L; Blood Urea Nitrogen 55 mg/dL (9-20); Calcium 8.6 mg/dL (8.4-10.2); Carbon Dioxide 28 mmol/L (22-30); Chloride 110 mmol/L (98-107); Glucose 107 mg/dL (74-99); Non-African American GFR(MDRD) >60 (>60 ml/min/1.73 sqM); Sodium 147 mmol/L (137-145); Total Bilirubin 0.6 mg/dL (0.2-1.3); Total Protein 4.5 g/dL (6.3-8.2)
[2016-05-12 08:36] LABS: Potassium 5.6 mmol/L (3.5-5.1)
[2016-05-12 08:49] LABS: Basophils % (A) 0 %; CH 33.7; Eosinophils % (A) 0 %; HCT 34.9 % (39.0-53.0); HDW 2.95; Luc # (Auto) 0.05; Luc % (Auto) 0; Lymphocytes # (A) 0.5 k/uL (1.0-4.8); Lymphocytes % (A) 3 %; MCH 33.3 pg (25.0-35.0); MCHC 31.5 g/dL (31.0-37.0); Macrocytosis Moderate; Mean Platelet Volume 9.5; Monocytes # (A) 0.6 k/uL (0-1.0); Monocytes % (A) 4 %; Neutrophils # (A) 13.5 k/uL (1.3-7.7); Neutrophils % (A) 92 %; RDW 15.8 % (11.5-15.5); WBC 14.7 k/uL (3.8-10.6); WBC (Perox) 14.03
[2016-05-12 08:50] LABS: MCV 105.7 fL (80.0-100.0)
--- NOTE | 2016-05-12 11:38 | P.PN ---
Subjective This is a 56-year-old gentleman who has paraplegia and multiple comorbidities. He was admitted with shortness of breath and chest discomfort. He was also found to have bilateral lower extremity DVTs and an indeterminate VQ scan for suspected pulmonary embolism. He remains anticoagulated with warfarin. Current INR 3.0. He is seen again today in follow-up on the regular medical floor. He is awake and alert in no acute distress. We've been able to decrease his FiO2 down to 2 L/m per nasal cannula to maintain O2 saturations in the mid 90s. He continues to utilize BiPAP in the evenings. Yesterday's chest x-ray was showed stable findings. There is continued evidence of chronic emphysema changes, cardiomegaly and left basilar atelectasis Objective - Vital Signs Vital signs: Vital Signs Temp 96.7 F L 05/11/16 23:00 Pulse 76 05/12/16 07:25 Resp 20 05/12/16 07:00 BP 139/81 05/12/16 07:00 Pulse Ox 98 05/12/16 07:00 Intake & Output 05/11/16 05/12/16 05/12/16 18:59 06:59 18:59 Intake Total 960 200 Output Total 3 Balance 957 200 Weight 113.6 kg Intake: Oral 960 200 Output: Stool 3 Other: Voiding Method Urinal Diaper # Voids 1 1 - Exam GENERAL EXAM: Alert, fairly comfortable at rest. HEAD: Normocephalic. EYES: Normal reaction of pupils, equal size. NOSE: Clear with pink turbinates. THROAT: There is some crowding the posterior pharynx. No erythema or exudates. NECK: Short. No masses, no JVD. CHEST: No chest wall deformity. LUNGS: Equal air entry with bilateral wheezing, crackles in the posterior bases , more so on the left. Diminished. CVS: S1 and S2 normal with no audible murmurs, regular rhythm. ABDOMEN: Obese, tender in the upper quadrant. Bowel sounds are present. Extremities: There is 1-2+ lower extremity peripheral edema. No clubbing, no cyanosis. Peripheral pulses are intact. - Labs CBC & Chem 7: 05/12/16 07:26 05/12/16 07:55 Labs: Abnormal Lab Results - Last 24 Hours (Table) 05/11/16 05/11/16 05/12/16 Range/Units 17:18 21:03 07:26 WBC 14.7 H (3.8-10.6) k/uL RBC 3.30 L (4.30-5.90) m/uL Hgb 11.0 L (13.0-17.5) gm/dL Hct 34.9 L (39.0-53.0) % MCV 105.7 H D (80.0-100.0) fL RDW 15.8 H (11.5-15.5) % Sodium (137-145) mmol/L Potassium (3.5-5.1) mmol/L Chloride (98-107) mmol/L BUN (9-20) mg/dL Glucose (74-99) mg/dL POC Glucose (mg/dL) 170 H 163 H (75-99) mg/dL Total Protein (6.3-8.2) g/dL Albumin (3.5-5.0) g/dL 05/12/16 Range/Units 07:55 WBC (3.8-10.6) k/uL RBC (4.30-5.90) m/uL Hgb (13.0-17.5) gm/dL Hct (39.0-53.0) % MCV (80.0-100.0) fL RDW (11.5-15.5) % Sodium 147 H (137-145) mmol/L Potassium 5.6 H (3.5-5.1) mmol/L Chloride 110 H (98-107) mmol/L BUN 55 H (9-20) mg/dL Glucose 107 H (74-99) mg/dL POC Glucose (mg/dL) (75-99) mg/dL Total Protein 4.5 L (6.3-8.2) g/dL Albumin 2.3 L (3.5-5.0) g/dL Assessment and Plan Plan: Impression: #1 Acute epigastric pain secondary to pancreatitis. #2 Acute hypoxic respiratory failure secondary to acute exacerbation of suspected diastolic congestive heart failure, utilizing intermittent BiPAP. There is also a left basilar atelectasis and suspected pleural effusion. No plans for thoracentesis at this time as his oxygen requirements are decreased and he has having less symptoms of shortness of breath. #3 Acute pancreatitis. #4 Bilateral lower extremity DVT and suspected PE. Anticoagulated with warfarin , current INR 3.0. #5 Paraplegia, functional. #6 Acute on chronic renal failure, improved current creatinine 1.20. #7 Advanced chronic obstructive pulmonary disease. #8 Chronic atrial fibrillation. #9 Suspect underlying obstructive sleep apnea/obesity/hypoventilation syndrome. Plan: The patient was seen and evaluated by Dr. Barrett. We'll continue with his warfarin. Continue bronchodilators. Continue to titrate systemic steroids. We will continue to try to titrate down the FiO2 will maintaining O2 saturations greater than 90% currently on 2 L/m per nasal cannula. Continue BiPAP as needed. We'll continue to follow make further recommendations based on his clinical status.
[2016-05-12 11:39] LABS: Prothrombin Time 18.8 sec (9.0-12.0)
--- NOTE | 2016-05-12 12:01 | P.PN ---
Subjective Patient is seen in follow-up for acute kidney injury on chronic any disease. Patient has chronic kidney disease stage III with baseline creatinine in the range of 1-1.5 secondary to diabetic kidney disease. Creatinine did peak at 4.2 this admission and is improved to 1.2 today. He is currently resting in bed. Grimes catheter was discontinued and remains nonoliguric. No vomiting or diarrhea. Denies chest pain. Appetite is good. Vital signs are stable. General: The patient appeared well nourished and normally developed. HEENT: Head exam is unremarkable. Neck is without jugular venous distension. LUNGS: Lungs are clear to auscultation and percussion. Breath sounds decreased. HEART: Rate and Rhythm are regular. First and second heart sounds normal. No murmurs, rubs or gallops. ABDOMEN: Abdominal exam reveals normal bowel sounds. Non-tender and non- distended. No evidence of peritonitis. EXTREMITITES: No clubbing, cyanosis, or edema. Objective - Vital Signs Vital signs: Vital Signs Temp 96.7 F L 05/11/16 23:00 Pulse 76 05/12/16 07:25 Resp 20 05/12/16 07:00 BP 139/81 05/12/16 07:00 Pulse Ox 98 05/12/16 07:00 Intake & Output 05/11/16 05/12/16 05/12/16 18:59 06:59 18:59 Intake Total 960 200 Output Total 3 Balance 957 200 Weight 113.6 kg Intake: Oral 960 200 Output: Stool 3 Other: Voiding Method Urinal Diaper # Voids 1 1 - Labs CBC & Chem 7: 05/12/16 07:26 05/12/16 07:55 Labs: Abnormal Lab Results - Last 24 Hours (Table) 05/11/16 05/11/16 05/12/16 Range/Units 17:18 21:03 07:26 WBC 14.7 H (3.8-10.6) k/uL RBC 3.30 L (4.30-5.90) m/uL Hgb 11.0 L (13.0-17.5) gm/dL Hct 34.9 L (39.0-53.0) % MCV 105.7 H D (80.0-100.0) fL RDW 15.8 H (11.5-15.5) % PT (9.0-12.0) sec Sodium (137-145) mmol/L Potassium (3.5-5.1) mmol/L Chloride (98-107) mmol/L BUN (9-20) mg/dL Glucose (74-99) mg/dL POC Glucose (mg/dL) 170 H 163 H (75-99) mg/dL Total Protein (6.3-8.2) g/dL Albumin (3.5-5.0) g/dL 05/12/16 05/12/16 Range/Units 07:55 11:02 WBC (3.8-10.6) k/uL RBC (4.30-5.90) m/uL Hgb (13.0-17.5) gm/dL Hct (39.0-53.0) % MCV (80.0-100.0) fL RDW (11.5-15.5) % PT 18.8 H (9.0-12.0) sec Sodium 147 H (137-145) mmol/L Potassium 5.6 H (3.5-5.1) mmol/L Chloride 110 H (98-107) mmol/L BUN 55 H (9-20) mg/dL Glucose 107 H (74-99) mg/dL POC Glucose (mg/dL) (75-99) mg/dL Total Protein 4.5 L (6.3-8.2) g/dL Albumin 2.3 L (3.5-5.0) g/dL Assessment and Plan Plan: Assessment: #1. Nonoliguric acute kidney injury secondary to ischemic ATN secondary to pancreatitis. Renal function improving with creatinine down to 1.2 today. #2. Chronic kidney disease stage III secondary to diabetic kidney disease with baseline creatinine in the range of 1-1.5. #3. Bilateral lower extremity DVTs. #4. Hypernatremia secondary to lack of free water intake. #5. Acute pancreatitis. #6. Mild hyperkalemia related to hyperglycemia and potentially high potassium intake. #7. Atrial fibrillation. Plan: Encourage oral water intake. Maintain D5W running at 40 mL an hour for now. Avoid nephrotoxic agents and hypotensive episodes. Repeat electrolytes in the morning. Advised tight blood sugar control. Low potassium diet.
[2016-05-12 12:12] LABS: Glucose,Whole Blood 170 mg/dL (75-99)
[2016-05-12 13:22] LABS: Basophilic Stippling Present; Manual Review Performed
[2016-05-12] MEDS: DEXTROSE 5% IN WATER 1,000 ML IV SCH (14:24)
[2016-05-12] MEDS: FOLIC ACID 1 MG TAB PO SCH (14:24)
[2016-05-12] MEDS: FERROUS SULFATE 325 MG TAB PO SCH (16:02)
[2016-05-12 17:00] LABS: Glucose,Whole Blood 167 mg/dL (75-99)
[2016-05-12] MEDS: TAMSULOSIN 0.4 MG CAP.ER.24H PO SCH (17:43)
[2016-05-12] MEDS: WARFARIN 5 MG TAB PO SCH (17:43)
--- NOTE | 2016-05-12 20:52 | P.PN ---
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 Patient is known to ID service as he was seen in May 2015 at which time he was treated for cellulitis of the right lower extremity. At that time he underwent duplex study that was negative for DVT, x-ray that showed potential for abscess and CAT scan of the lower extremity was done that failed to reveal an abscess and was negative for osteomyelitis. He was treated with local wound care with Silvadene and he was discharged on oral Bactrim. Patient currently resides at [facility]. He states he had a sudden onset of chest pain on the left side while he was watching TV. It was sharp with a 5 out of 10 with mild shortness of breath. Patient was transferred to [facility] where he received 4 baby aspirin and 3 nitroglycerin that did not change his pain. His d -dimer was slightly elevated at 0.73. BUN was 26 and creatinine 1.8. It appears patient's baseline creatinine is 1.5-1.7. He was afebrile. Troponin was 0.017. He was given 1 L of IV fluids and there was concern for pulmonary embolism and patient was transferred to [facility] for VQ scan. Patient was admitted to the selective care unit. Unfortunately he was unable to complete the VQ scan. However, venous Dopplers of the bilateral lower extremities were positive on both sides. He underwent a chest x-ray that showed left lower lobe atelectasis or infiltrate and cardiomegaly. CAT scan of the abdomen and pelvis revealed acute pancreatitis. He subsequently underwent x -ray films that showed possible obstruction or ileus. Patient's last bowel movement was apparently 2 days ago. Repeat lab work showed leukocytosis of 16.4 , lactic acid 2.4 and BUN 43 with creatinine 3.5. Albumin 3.2. Potassium was 6.06 and he is status post Kayexalate. His heart rate has been running 120-130 since admission. He has the following consultations in place cardiology, pulmonary medicine, nephrology, surgery. Amylase was 632 and lipase 13,509. Patient continues to have left upper quadrant lower rib pain. He does complain of nausea without vomiting. He denies any diarrhea. He denies any cough or sputum reduction. He states he has shortness of breath all the time and he normally has rapid respirations per the patient area he denies any problems with his legs that he is aware of. He is incontinent of urine. Seems to be slightly improved today. More awake and alert. Knows that he is Ruchi Marin. Was able to state my name. Abdominal pains improved." Bowel movements occurred. diarrheas improved and not thought to have C. diff. Respiratory status has remained a significant difficulty. He is now been on BiPAP consistently. In the BiPAP was required increasing amounts of settings to maintain a saturation. Because he is being transferred intensive care unit at this time. For ongoing pulmonary management. Acute lung injury from his pancreatitis appears to be occurring. Has been up in a chair today. Is on oxygen at 4 L Objective - Vital Signs Vital signs: Vital Signs Temp 96.7 F L 05/12/16 15:00 Pulse 74 05/12/16 19:58 Resp 24 05/12/16 15:00 BP 136/73 05/12/16 17:52 Pulse Ox 96 05/12/16 15:00 Intake & Output 05/12/16 05/12/16 05/13/16 06:59 18:59 06:59 Intake Total 200 Balance 200 Intake: Oral 200 Other: Voiding Method Diaper Diaper Diaper # Voids 1 2 - Exam Gen: This is a obese 56-year-old male. Sitting up in a chair with high flow oxygen HEENT: Head is atraumatic, normocephalic. Pupils equal, round. Sclerae is anicteric. Conjunctiva pink. Mucous membranes of the mouth are moist. No thrush noted. NECK: Supple. No JVD. No lymphadenopathy. No thyromegaly. LUNGS: Symmetrical air entry is noted. There are basilar crackles. Few expiratory wheezes are heard. No phillip bronchial sounds are noted. Egophony could not be evaluated HEART: Regular rate and rhythm. No murmur. ABDOMEN: Slightly distended. Bowel sounds are present. Generalized tenderness to the entire abdomen less tender to the left upper quadrant today. EXTREMITIES: Trace bilateral pedal edema. No erythema or wounds noted to the bilateral lower extremities NEUROLOGICAL: Patient is awake and alert interactive feeling better - Labs CBC & Chem 7: 05/12/16 07:26 05/12/16 07:55 Labs: Abnormal Lab Results - Last 24 Hours (Table) 1205/12/16 05/12/16 Range/Units 21:03 07:26 07:55 WBC 14.7 H (3.8-10.6) k/uL RBC 3.30 L (4.30-5.90) m/uL Hgb 11.0 L (13.0-17.5) gm/dL Hct 34.9 L (39.0-53.0) % MCV 105.7 H D (80.0-100.0) fL RDW 15.8 H (11.5-15.5) % Neutrophils # 13.5 H (1.3-7.7) k/uL Lymphocytes # 0.5 L (1.0-4.8) k/uL PT (9.0-12.0) sec Sodium 147 H (137-145) mmol/L Potassium 5.6 H (3.5-5.1) mmol/L Chloride 110 H (98-107) mmol/L BUN 55 H (9-20) mg/dL Glucose 107 H (74-99) mg/dL POC Glucose (mg/dL) 163 H (75-99) mg/dL Total Protein 4.5 L (6.3-8.2) g/dL Albumin 2.3 L (3.5-5.0) g/dL 05/12/16 05/12/16 05/12/16 Range/Units 11:02 12:11 16:58 WBC (3.8-10.6) k/uL RBC (4.30-5.90) m/uL Hgb (13.0-17.5) gm/dL Hct (39.0-53.0) % MCV (80.0-100.0) fL RDW (11.5-15.5) % Neutrophils # (1.3-7.7) k/uL Lymphocytes # (1.0-4.8) k/uL PT 18.8 H (9.0-12.0) sec Sodium (137-145) mmol/L Potassium (3.5-5.1) mmol/L Chloride (98-107) mmol/L BUN (9-20) mg/dL Glucose (74-99) mg/dL POC Glucose (mg/dL) 170 H 167 H (75-99) mg/dL Total Protein (6.3-8.2) g/dL Albumin (3.5-5.0) g/dL Laboratory Results WBC 14.7 k/uL (3.8-10.6) H 05/12/16 07:26 RBC 3.30 m/uL (4.30-5.90) L 05/12/16 07:26 Hgb 11.0 gm/dL (13.0-17.5) L 05/12/16 07:26 Hct 34.9 % (39.0-53.0) L 05/12/16 07:26 MCV 105.7 fL (80.0-100.0) H D 05/12/16 07:26 MCH 33.3 pg (25.0-35.0) 05/12/16 07:26 MCHC 31.5 g/dL (31.0-37.0) 05/12/16 07:26 RDW 15.8 % (11.5-15.5) H 05/12/16 07:26 Plt Count 195 k/uL (150-450) 05/12/16 07:26 Neutrophils % 92 % 05/12/16 07:26 Neutrophils % (Manual) 46.0 % 05/03/16 02:43 Band Neutrophils % 30.5 % 05/03/16 02:43 Lymphocytes % 3 % 05/12/16 07:26 Lymphocytes % (Manual) 16.5 % 05/03/16 02:43 Monocytes % 4 % 05/12/16 07:26 Monocytes % (Manual) 6.0 % 05/03/16 02:43 Eosinophils % 0 % 05/12/16 07:26 Eosinophils % (Manual) 0.5 % 05/01/16 05:40 Basophils % 0 % 05/12/16 07:26 Metamyelocytes % 1.0 % 05/03/16 02:43 Myelocytes % 0.5 % 04/30/16 05:38 Neutrophils # 13.5 k/uL (1.3-7.7) H 05/12/16 07:26 Neutrophils # (Manual) 3.9 k/uL (1.3-7.7) 05/03/16 02:43 Lymphocytes # 0.5 k/uL (1.0-4.8) L 05/12/16 07:26 Lymphocytes # (Manual) 0.8 k/uL (1.0-4.8) L 05/03/16 02:43 Monocytes # 0.6 k/uL (0-1.0) 05/12/16 07:26 Monocytes # (Manual) 0.3 k/uL (0-1.0) 05/03/16 02:43 Eosinophils # 0.0 k/uL (0-0.7) 05/12/16 07:26 Eosinophils # (Manual) 0.0 k/uL (0-0.7) 05/01/16 05:40 Basophils # 0.0 k/uL (0-0.2) 05/12/16 07:26 Nucleated RBCs 1 /100 WBC (0-0) H 05/03/16 02:43 Manual Slide Review Performed 05/12/16 07:26 Toxic Granulation Present 04/29/16 05:42 Toxic Vacuolation Present 04/29/16 05:42 Large Platelets Present 05/08/16 05:06 Polychromasia Present 05/10/16 05:21 Hypochromasia Marked 05/10/16 05:21 Poikilocytosis (manual Present 05/03/16 02:43 Basophilic Stippling Present 05/12/16 07:26 Anisocytosis (manual) Present 05/03/16 02:43 Macrocytosis Moderate 05/12/16 07:26 PT 18.8 sec (9.0-12.0) H 05/12/16 11:02 INR 2.0 (<1.1) 05/12/16 11:02 APTT 89.5 sec (22.0-30.0) H 05/04/16 05:52 D-Dimer 2.06 mg/L FEU (<0.60) H 04/27/16 10:33 Sample Site RRAD 05/05/16 10:04 ABG pH 7.39 (7.35-7.45) 05/05/16 10:04 ABG pCO2 34 mmHg (35-45) L 05/05/16 10:04 ABG pO2 99 mmHg (83-108) 05/05/16 10:04 ABG HCO3 20 mmol/L (21-25) L 05/05/16 10:04 ABG Total CO2 21 mmol/L (19-24) 05/05/16 10:04 ABG O2 Saturation 98.0 % (94-97) H 05/05/16 10:04 ABG Base Excess -4.0 mmol/L 05/05/16 10:04 FiO2 80 % 05/05/16 10:04 Sodium 147 mmol/L (137-145) H 05/12/16 07:55 Potassium 5.6 mmol/L (3.5-5.1) H 05/12/16 07:55 Chloride 110 mmol/L (98-107) H 05/12/16 07:55 Carbon Dioxide 28 mmol/L (22-30) 05/12/16 07:55 Anion Gap 9 mmol/L 05/12/16 07:55 BUN 55 mg/dL (9-20) H 05/12/16 07:55 Creatinine 1.20 mg/dL (0.66-1.25) 05/12/16 07:55 Est GFR (MDRD) Af Amer >60 (>60 ml/min/1.73 sqM) 05/12/16 07:55 Est GFR (MDRD) Non-Af >60 (>60 ml/min/1.73 sqM) 05/12/16 07:55 Glucose 107 mg/dL (74-99) H 05/12/16 07:55 POC Glucose (mg/dL) 167 mg/dL (75-99) H 05/12/16 16:58 POC Glu Grommet Worker ID Carolyn Srivastava 05/12/16 16:[address] Glu mg/dL 151 mg/dL 04/28/16 10:44 Hemoglobin A1c 6.9 % (4.2-6.1) H 04/28/16 10:44 Plasma Lactic Acid Clay 1.1 mmol/L (0.7-2.0) 05/07/16 08:16 Calcium 8.6 mg/dL (8.4-10.2) 05/12/16 07:55 Phosphorus 4.7 mg/dL (2.5-4.5) H 05/10/16 05:21 Magnesium 2.6 mg/dL (1.6-2.3) H 05/10/16 05:21 Total Bilirubin 0.6 mg/dL (0.2-1.3) 05/12/16 07:55 AST 30 U/L (17-59) 05/12/16 07:55 ALT 33 U/L (21-72) 05/12/16 07:55 Alkaline Phosphatase 68 U/L (38-126) 05/12/16 07:55 Total Creatine Kinase 64 U/L (55-170) 04/27/16 16:08 CK-MB (CK-2) 0.5 ng/mL (0.0-2.4) 04/27/16 16:08 CK-MB (CK-2) Rel Index 0.8 04/27/16 16:08 Troponin I <0.012 ng/mL (0.000-0.034) 04/27/16 16:08 NT-Pro-B Natriuret Pep 7950 pg/mL 05/03/16 02:43 Total Protein 4.5 g/dL (6.3-8.2) L 05/12/16 07:55 Albumin 2.3 g/dL (3.5-5.0) L 05/12/16 07:55 Triglycerides 235 mg/dL (<150) H 04/28/16 06:08 Cholesterol 120 mg/dL (<200) 04/28/16 06:08 LDL Cholesterol, Calc 46 mg/dL (0-99) 04/28/16 06:08 HDL Cholesterol 27 mg/dL (40-60) L 04/28/16 06:08 Amylase <30 U/L (30-110) L 05/06/16 04:28 Lipase 378 U/L (23-300) H 05/06/16 04:28 Urine Color Yellow 04/28/16 18:40 Urine Appearance Cloudy (Clear) 04/28/16 18:40 Urine pH 5.5 (5.0-8.0) 04/28/16 18:40 Ur Specific Ralston 1.018 (1.001-1.035) 04/28/16 18:40 Urine Protein 2+ (Negative) H 04/28/16 18:40 Urine Glucose (UA) Trace (Negative) H 04/28/16 18:40 Urine Ketones Trace (Negative) H 04/28/16 18:40 Urine Blood Negative (Negative) 04/28/16 18:40 Urine Nitrate Negative (Negative) 04/28/16 18:40 Urine Bilirubin Negative (Negative) 04/28/16 18:40 Urine Urobilinogen <2.0 mg/dL (<2.0) 04/28/16 18:40 Ur Leukocyte Esterase Small (Negative) H 04/28/16 18:40 Urine WBC 26 /hpf (0-5) H 04/28/16 18:40 Amorphous Sediment Occasional /hpf (None) H 04/28/16 18:40 Hyaline Casts 22 /lpf (0-2) H 04/28/16 18:40 Granular Casts 19 /lpf (0) 04/28/16 18:40 Urine Mucus Rare /hpf (None) H 04/28/16 18:40 Hepatitis A IgM Ab NEGATIVE 04/28/16 21:50 Hep Bs Antigen Negative 04/28/16 21:50 Hep B Core IgM Ab NEGATIVE 04/28/16 21:50 Hep C IgG Ab Negative (Negative) 04/28/16 21:50 Microbiology 04/28/16 22:00 Blood Blood Culture - Final No Growth after 144 hours 04/28/16 12:15 Blood Blood Culture - Final No Growth after 144 hours 04/28/16 18:40 Urine,Catheterized Urine Culture - Final Assessment and Plan (1) Pancreatitis Narrative/Plan: 56-year-old male [facility] to [facility] abdominal pain. Evidence of phillip pancreatitis. Also had lower extremity edema without evidence of bilateral lower extremities deep venous thrombosis and likely pulmonary in this. Currently being treated with an heparin drip has been seen by hematology. No evidence of any significant sepsis at this time. Antibiotic therapy was tailored to ceftriaxone. The cultures remain negative we'll continue to monitor we'll discontinue Rocephin. leukocytosis has resolved. Likely on the bases the pancreatitis. Actually white count trended down a bit low. Without infections , the antibiotic was discontinued. Patient was having a worsening pulmonary status Likely his acute lung injury related to his pancreatitis, as well as his DVT and PE. No evidence of any infection Rocephin is discontinued. No need for further antibiotic therapy. Pulmonary status is improving today. Sitting up in a chair with high flow oxygen and a decreasing amount. BiPAP for nighttime. Overall improvement. Status: Acute (2) Deep venous thrombosis Status: Acute (3) Leukocytosis Status: Acute
[2016-05-12 21:08] LABS: Glucose,Whole Blood 155 mg/dL (75-99)
[2016-05-12] MEDS: INSULIN GLARGINE 100 UNIT/ML 10 ML VIAL SQ SCH (21:38)
[2016-05-12] MEDS: FENOFIBRATE 160 MG TAB PO SCH (21:38)
[2016-05-12] MEDS: ATORVASTATIN 10 MG TAB PO SCH (21:38)
[2016-05-12] MEDS: POLYETHYLENE GLYCOL 3350 17 GM POWD.PACK PO SCH (21:39)
[2016-05-13 01:58] LABS: Glucose,Whole Blood 144 mg/dL (75-99)
[2016-05-13] MEDS: INSULIN LISPRO (humaLOG) 300 UNIT/3 ML VIAL SQ SCH ×5 (02:08→22:08)
[2016-05-13] MEDS: DIVALPROEX 500 MG TABLET.DR PO SCH ×2 (06:20→16:20)
[2016-05-13 06:56] LABS: Glucose,Whole Blood 128 mg/dL (75-99)
[2016-05-13] MEDS: PHENAZOPYRIDINE 100 MG TAB PO SCH ×3 (07:50→22:05)
[2016-05-13] MEDS: levETIRAcetam 500 MG TAB PO SCH ×2 (07:50→16:21)
[2016-05-13] MEDS: CALCIUM CARB-VIT D 500MG-200UN 1 EACH TAB PO SCH ×2 (07:50→22:05)
[2016-05-13] MEDS: VENLAFAXINE HCL ER 150 MG CAP PO SCH (07:50)
[2016-05-13] MEDS: VERAPAMIL 40 MG TAB PO SCH ×3 (07:50→22:05)
[2016-05-13] MEDS: ALLOPURINOL 100 MG TAB PO SCH (07:50)
[2016-05-13] MEDS: CARVEDILOL 12.5 MG TAB PO SCH ×2 (07:50→16:21)
[2016-05-13] MEDS: methylPREDNISolone SOD SUCCI 40 MG/ML 1 ML VIAL IV SCH (07:51)
[2016-05-13] MEDS: PANTOPRAZOLE 40 MG TABLET PO SCH (07:51)
[2016-05-13 08:28] LABS: INR 2.4 (<1.1); Prothrombin Time 23.3 sec (9.0-12.0)
[2016-05-13] MEDS: LEVALBUTEROL NEB 1.25 MG/3 ML AMP INHALATION SCH ×3 (08:35→19:29)
[2016-05-13 08:45] LABS: Anion Gap 9 mmol/L; Blood Urea Nitrogen 57 mg/dL (9-20); Carbon Dioxide 26 mmol/L (22-30); Chloride 111 mmol/L (98-107); Glucose 103 mg/dL (74-99); Non-African American GFR(MDRD) 57 (>60 ml/min/1.73 sqM); Potassium 5.8 mmol/L (3.5-5.1); Sodium 146 mmol/L (137-145)
[2016-05-13] MEDS ORDERED: INSULIN REGULAR 100 UNIT/ML VIAL IV ONE ×2 (09:35→18:00)
[2016-05-13] MEDS ORDERED: DEXTROSE 50%-WATER 50 ML SYRINGE IVP STA ×2 (09:35→17:45)
[2016-05-13] MEDS ORDERED: FUROSEMIDE 10 MG/ML 2 ML VIAL IV ONE (09:56)
--- NOTE | 2016-05-13 10:14 | P.PN ---
Subjective Patient is seen in follow-up for acute kidney injury on chronic any disease. Patient has chronic kidney disease stage III with baseline creatinine in the range of 1-1.5 secondary to diabetic kidney disease. Creatinine did peak at 4.2 this admission and is stable at 1.29 today. He is currently resting in bed. Grimes catheter was discontinued and remains nonoliguric. No vomiting or diarrhea. Denies chest pain. Appetite is good. Vital signs are stable. General: The patient appeared well nourished and normally developed. HEENT: Head exam is unremarkable. Neck is without jugular venous distension. LUNGS: Lungs are clear to auscultation and percussion. Breath sounds decreased. HEART: Rate and Rhythm are regular. First and second heart sounds normal. No murmurs, rubs or gallops. ABDOMEN: Abdominal exam reveals normal bowel sounds. Non-tender and non- distended. No evidence of peritonitis. EXTREMITITES: No clubbing, cyanosis, or edema. Objective - Vital Signs Vital signs: Vital Signs Temp 96.4 F L 05/13/16 07:00 Pulse 76 05/13/16 08:45 Resp 20 05/13/16 07:00 BP 141/69 05/13/16 07:00 Pulse Ox 92 L 05/13/16 07:00 Intake & Output 05/12/16 05/13/16 05/13/16 18:59 06:59 18:59 Other: Voiding Method Diaper Diaper Diaper Incontinent # Voids 2 2 # Bowel Movements 1 - Labs CBC & Chem 7: 05/12/16 07:26 05/13/16 08:01 Labs: Abnormal Lab Results - Last 24 Hours (Table) 05/12/16 05/12/16 05/12/16 Range/Units 07:26 11:02 12:11 WBC 14.7 H (3.8-10.6) k/uL RBC 3.30 L (4.30-5.90) m/uL Hgb 11.0 L (13.0-17.5) gm/dL Hct 34.9 L (39.0-53.0) % MCV 105.7 H D (80.0-100.0) fL RDW 15.8 H (11.5-15.5) % Neutrophils # 13.5 H (1.3-7.7) k/uL Lymphocytes # 0.5 L (1.0-4.8) k/uL PT 18.8 H (9.0-12.0) sec Sodium (137-145) mmol/L Potassium (3.5-5.1) mmol/L Chloride (98-107) mmol/L BUN (9-20) mg/dL Creatinine (0.66-1.25) mg/dL Glucose (74-99) mg/dL POC Glucose (mg/dL) 170 H (75-99) mg/dL 05/12/16 05/12/16 05/13/16 Range/Units 16:58 21:06 01:55 WBC (3.8-10.6) k/uL RBC (4.30-5.90) m/uL Hgb (13.0-17.5) gm/dL Hct (39.0-53.0) % MCV (80.0-100.0) fL RDW (11.5-15.5) % Neutrophils # (1.3-7.7) k/uL Lymphocytes # (1.0-4.8) k/uL PT (9.0-12.0) sec Sodium (137-145) mmol/L Potassium (3.5-5.1) mmol/L Chloride (98-107) mmol/L BUN (9-20) mg/dL Creatinine (0.66-1.25) mg/dL Glucose (74-99) mg/dL POC Glucose (mg/dL) 167 H 155 H 144 H (75-99) mg/dL 05/13/16 05/13/16 05/13/16 Range/Units 06:55 08:01 08:01 WBC (3.8-10.6) k/uL RBC (4.30-5.90) m/uL Hgb (13.0-17.5) gm/dL Hct (39.0-53.0) % MCV (80.0-100.0) fL RDW (11.5-15.5) % Neutrophils # (1.3-7.7) k/uL Lymphocytes # (1.0-4.8) k/uL PT 23.3 H (9.0-12.0) sec Sodium 146 H (137-145) mmol/L Potassium 5.8 H (3.5-5.1) mmol/L Chloride 111 H (98-107) mmol/L BUN 57 H (9-20) mg/dL Creatinine 1.29 H (0.66-1.25) mg/dL Glucose 103 H (74-99) mg/dL POC Glucose (mg/dL) 128 H (75-99) mg/dL Assessment and Plan Plan: Assessment: #1. Nonoliguric acute kidney injury secondary to ischemic ATN secondary to pancreatitis. Renal function improved with creatinine at 1.29 today. #2. Chronic kidney disease stage III secondary to diabetic kidney disease with baseline creatinine in the range of 1-1.5. #3. Bilateral lower extremity DVTs. #4. Hypernatremia secondary to lack of free water intake. #5. Acute pancreatitis. #6. Mild hyperkalemia related to hyperglycemia and potentially high potassium intake. #7. Atrial fibrillation. Plan: Encourage oral water intake. Maintain D5W running at 40 mL an hour for now. Avoid nephrotoxic agents and hypotensive episodes. Advised tight blood sugar control. Low potassium diet. 10 units of IV insulin with amp of D50. Lasix 20 mg IV once today. Repeat potassium level at 5 PM today.
--- NOTE | 2016-05-13 11:40 | P.PN ---
Subjective This is a 56-year-old gentleman who has paraplegia and multiple comorbidities. He was admitted with shortness of breath and abdominal discomfort. He was found to have pancreatitis. He was also found to have bilateral lower extremity DVTs and an indeterminate VQ scan for suspected pulmonary embolism. He remains anticoagulated with warfarin. Current INR 2.4. He is seen again today in follow-up on the regular medical floor. He is awake and alert in no acute distress. We've been able to decrease his FiO2 down to 3 L/m per nasal cannula to maintain O2 saturations in the mid 90s. He continues to utilize BiPAP in the evenings. Most recent chest x-ray was showed stable findings. There is continued evidence of chronic emphysema changes, cardiomegaly and left basilar atelectasis. The plan is to be transferred back to [facility] however he continues with some hypernatremia and hyperkalemia both of which are being addressed by nephrology. He has a D5W at 40 mL per hour. We 've encouraged increased oral water intake. He is on a low potassium diet. He was given Lasix 20 mg IV 1 today. Current creatinine 1.29. Objective - Vital Signs Vital signs: Vital Signs Temp 96.4 F L 05/13/16 07:00 Pulse 76 05/13/16 08:45 Resp 20 05/13/16 07:00 BP 141/69 05/13/16 07:00 Pulse Ox 92 L 05/13/16 07:00 Intake & Output 05/12/16 05/13/16 05/13/16 18:59 06:59 18:59 Other: Voiding Method Diaper Diaper Diaper Incontinent # Voids 2 2 # Bowel Movements 1 - Exam GENERAL EXAM: Alert, fairly comfortable at rest. HEAD: Normocephalic. EYES: Normal reaction of pupils, equal size. NOSE: Clear with pink turbinates. THROAT: There is some crowding the posterior pharynx. No erythema or exudates. NECK: Short. No masses, no JVD. CHEST: No chest wall deformity. LUNGS: Equal air entry with bilateral wheezing, crackles in the posterior bases , more so on the left. Diminished. CVS: S1 and S2 normal with no audible murmurs, regular rhythm. ABDOMEN: Obese, tender in the upper quadrant. Bowel sounds are present. Extremities: There is 1-2+ lower extremity peripheral edema. No clubbing, no cyanosis. Peripheral pulses are intact. - Labs CBC & Chem 7: 05/12/16 07:26 05/13/16 08:01 Labs: Abnormal Lab Results - Last 24 Hours (Table) 05/12/16 05/12/16 05/12/16 Range/Units 07:26 11:02 12:11 WBC 14.7 H (3.8-10.6) k/uL RBC 3.30 L (4.30-5.90) m/uL Hgb 11.0 L (13.0-17.5) gm/dL Hct 34.9 L (39.0-53.0) % MCV 105.7 H D (80.0-100.0) fL RDW 15.8 H (11.5-15.5) % Neutrophils # 13.5 H (1.3-7.7) k/uL Lymphocytes # 0.5 L (1.0-4.8) k/uL PT 18.8 H (9.0-12.0) sec Sodium (137-145) mmol/L Potassium (3.5-5.1) mmol/L Chloride (98-107) mmol/L BUN (9-20) mg/dL Creatinine (0.66-1.25) mg/dL Glucose (74-99) mg/dL POC Glucose (mg/dL) 170 H (75-99) mg/dL 05/12/16 05/12/16 05/13/16 Range/Units 16:58 21:06 01:55 WBC (3.8-10.6) k/uL RBC (4.30-5.90) m/uL Hgb (13.0-17.5) gm/dL Hct (39.0-53.0) % MCV (80.0-100.0) fL RDW (11.5-15.5) % Neutrophils # (1.3-7.7) k/uL Lymphocytes # (1.0-4.8) k/uL PT (9.0-12.0) sec Sodium (137-145) mmol/L Potassium (3.5-5.1) mmol/L Chloride (98-107) mmol/L BUN (9-20) mg/dL Creatinine (0.66-1.25) mg/dL Glucose (74-99) mg/dL POC Glucose (mg/dL) 167 H 155 H 144 H (75-99) mg/dL 05/13/16 05/13/16 05/13/16 Range/Units 06:55 08:01 08:01 WBC (3.8-10.6) k/uL RBC (4.30-5.90) m/uL Hgb (13.0-17.5) gm/dL Hct (39.0-53.0) % MCV (80.0-100.0) fL RDW (11.5-15.5) % Neutrophils # (1.3-7.7) k/uL Lymphocytes # (1.0-4.8) k/uL PT 23.3 H (9.0-12.0) sec Sodium 146 H (137-145) mmol/L Potassium 5.8 H (3.5-5.1) mmol/L Chloride 111 H (98-107) mmol/L BUN 57 H (9-20) mg/dL Creatinine 1.29 H (0.66-1.25) mg/dL Glucose 103 H (74-99) mg/dL POC Glucose (mg/dL) 128 H (75-99) mg/dL Assessment and Plan Plan: Impression: #1 Acute epigastric pain secondary to pancreatitis. #2 Acute hypoxic respiratory failure secondary to acute exacerbation of suspected diastolic congestive heart failure, utilizing intermittent BiPAP. There is also a left basilar atelectasis and suspected pleural effusion. No plans for thoracentesis at this time as his oxygen requirements are decreased and he has having less symptoms of shortness of breath. #3 Acute pancreatitis, recovered. #4 Bilateral lower extremity DVT and suspected PE. Anticoagulated with warfarin , current INR 2.4. #5 Paraplegia, functional. #6 Acute on chronic renal failure, improved current creatinine 1.29. #7 Advanced chronic obstructive pulmonary disease. #8 Chronic atrial fibrillation. #9 Suspect underlying obstructive sleep apnea/obesity/hypoventilation syndrome. Plan: The patient was seen and evaluated by Dr. Barrett. We'll continue with his warfarin. Continue bronchodilators. Continue to titrate systemic steroids. We will continue to try to titrate down the FiO2 will maintaining O2 saturations greater than 90% currently on 3 L/m per nasal cannula. Continue BiPAP as needed. He is cleared for transfer from the pulmonary standpoint, until then we 'll continue to follow and make further recommendations based on his clinical status.
[2016-05-13 11:53] LABS: Glucose,Whole Blood 102 mg/dL (75-99)
[2016-05-13] MEDS: FOLIC ACID 1 MG TAB PO SCH (12:30)
[2016-05-13] MEDS: DEXTROSE 5% IN WATER 1,000 ML IV SCH (12:30)
[2016-05-13] MEDS: FERROUS SULFATE 325 MG TAB PO SCH (16:21)
[2016-05-13 17:01] LABS: Glucose,Whole Blood 158 mg/dL (75-99)
[2016-05-13] MEDS: TAMSULOSIN 0.4 MG CAP.ER.24H PO SCH (17:30)
[2016-05-13] MEDS: WARFARIN 5 MG TAB PO SCH (17:30)
[2016-05-13 21:18] LABS: Glucose,Whole Blood 150 mg/dL (75-99)
[2016-05-13] MEDS: FENOFIBRATE 160 MG TAB PO SCH (22:05)
[2016-05-13] MEDS: ATORVASTATIN 10 MG TAB PO SCH (22:05)
[2016-05-13] MEDS: POLYETHYLENE GLYCOL 3350 17 GM POWD.PACK PO SCH (22:06)
[2016-05-13] MEDS: INSULIN GLARGINE 100 UNIT/ML 10 ML VIAL SQ SCH (22:13)
[2016-05-14 02:04] LABS: Glucose,Whole Blood 135 mg/dL (75-99)
[2016-05-14] MEDS: INSULIN LISPRO (humaLOG) 300 UNIT/3 ML VIAL SQ SCH ×5 (03:41→22:27)
[2016-05-14] MEDS: DIVALPROEX 500 MG TABLET.DR PO SCH ×2 (06:41→16:19)
[2016-05-14 07:07] LABS: Glucose,Whole Blood 79 mg/dL (75-99)
[2016-05-14] MEDS: LEVALBUTEROL NEB 1.25 MG/3 ML AMP INHALATION SCH ×3 (07:15→19:47)
[2016-05-14] MEDS: PANTOPRAZOLE 40 MG TABLET PO SCH (08:19)
[2016-05-14] MEDS: CALCIUM CARB-VIT D 500MG-200UN 1 EACH TAB PO SCH ×2 (08:19→22:27)
[2016-05-14] MEDS: ALLOPURINOL 100 MG TAB PO SCH (08:19)
[2016-05-14] MEDS: levETIRAcetam 500 MG TAB PO SCH ×2 (08:19→16:19)
[2016-05-14] MEDS: CARVEDILOL 12.5 MG TAB PO SCH ×2 (08:19→17:34)
[2016-05-14] MEDS: PHENAZOPYRIDINE 100 MG TAB PO SCH ×3 (08:20→22:26)
[2016-05-14] MEDS: predniSONE 20 MG TAB PO SCH (08:20)
[2016-05-14] MEDS: VENLAFAXINE HCL ER 150 MG CAP PO SCH (08:20)
[2016-05-14] MEDS: VERAPAMIL 40 MG TAB PO SCH ×3 (08:20→22:27)
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
--- NOTE | 2016-05-14 10:52 | P.PN ---
Subjective This is a 56-year-old gentleman who has paraplegia and multiple comorbidities. He was admitted with shortness of breath and abdominal discomfort. He was found to have pancreatitis. He was also found to have bilateral lower extremity DVTs and an indeterminate VQ scan for suspected pulmonary embolism. He remains anticoagulated with warfarin. Current INR 2.4. He is seen again today in follow-up on the regular medical floor. He is awake and alert in no acute distress. We've been able to decrease his FiO2 down to 3 L/m per nasal cannula to maintain O2 saturations in the mid 90s. He continues to utilize BiPAP in the evenings. Most recent chest x-ray was showed stable findings. There is continued evidence of chronic emphysema changes, cardiomegaly and left basilar atelectasis. The plan is to be transferred back to [facility]. Objective - Vital Signs Vital signs: Vital Signs Temp 96.9 F L 05/14/16 07:00 Pulse 72 05/14/16 07:31 Resp 18 05/14/16 07:00 BP 138/68 05/14/16 07:00 Pulse Ox 93 L 05/14/16 07:00 Intake & Output 05/13/16 05/14/16 05/14/16 18:59 06:59 18:59 Other: Voiding Method Diaper Diaper Diaper Incontinent Incontinent Incontinent # Voids 3 1 # Bowel Movements 3 1 - Exam GENERAL EXAM: Alert, fairly comfortable at rest. HEAD: Normocephalic. EYES: Normal reaction of pupils, equal size. NOSE: Clear with pink turbinates. THROAT: There is some crowding the posterior pharynx. No erythema or exudates. NECK: Short. No masses, no JVD. CHEST: No chest wall deformity. LUNGS: Equal air entry with bilateral wheezing, crackles in the posterior bases , more so on the left. Diminished. CVS: S1 and S2 normal with no audible murmurs, regular rhythm. ABDOMEN: Obese, tender in the upper quadrant. Bowel sounds are present. Extremities: There is 1-2+ lower extremity peripheral edema. No clubbing, no cyanosis. Peripheral pulses are intact. - Labs CBC & Chem 7: 05/12/16 07:26 05/13/16 17:06 Labs: Abnormal Lab Results - Last 24 Hours (Table) 12/05/13/16 05/13/16 Range/Units 11:52 17:00 17:06 Potassium 5.8 H (3.5-5.1) mmol/L POC Glucose (mg/dL) 102 H 158 H (75-99) mg/dL 05/13/16 05/14/16 Range/Units 21:16 02:02 Potassium (3.5-5.1) mmol/L POC Glucose (mg/dL) 150 H 135 H (75-99) mg/dL Assessment and Plan Plan: Impression: #1 Acute epigastric pain secondary to pancreatitis. #2 Acute hypoxic respiratory failure secondary to acute exacerbation of suspected diastolic congestive heart failure, utilizing intermittent BiPAP. There is also a left basilar atelectasis and suspected pleural effusion. No plans for thoracentesis at this time as his oxygen requirements are decreased and he has having less symptoms of shortness of breath. #3 Acute pancreatitis, recovered. #4 Bilateral lower extremity DVT and suspected PE. Anticoagulated with warfarin , current INR 2.4. #5 Paraplegia, functional. #6 Acute on chronic renal failure, improved current creatinine 1.29. #7 Advanced chronic obstructive pulmonary disease. #8 Chronic atrial fibrillation. #9 Suspect underlying obstructive sleep apnea/obesity/hypoventilation syndrome. Plan: The patient was seen and evaluated by Dr. Barrett. Continue bronchodilators and systemic steroids. Continue warfarin. Continue oxygen and maintaining O2 saturations greater than 90% currently on 3 L/m per nasal cannula. Continue BiPAP as needed. He is cleared for transfer to the extended care facility from the pulmonary standpoint, until then we'll continue to follow and make further recommendations based on his clinical status.
--- NOTE | 2016-05-14 11:17 | P.PN ---
Subjective Patient is seen in follow-up for acute kidney injury on chronic any disease. Patient has chronic kidney disease stage III with baseline creatinine in the range of 1-1.5 secondary to diabetic kidney disease. Creatinine did peak at 4.2 this admission and is stable at 1.29 as of yesterday. He is currently resting in bed. Grimes catheter was discontinued and remains nonoliguric. No vomiting or diarrhea. Denies chest pain. Appetite is good. Vital signs are stable. General: The patient appeared well nourished and normally developed. HEENT: Head exam is unremarkable. Neck is without jugular venous distension. LUNGS: Lungs are clear to auscultation and percussion. Breath sounds decreased. HEART: Rate and Rhythm are regular. First and second heart sounds normal. No murmurs, rubs or gallops. ABDOMEN: Abdominal exam reveals normal bowel sounds. Non-tender and non- distended. No evidence of peritonitis. EXTREMITITES: No clubbing, cyanosis, or edema. Objective - Vital Signs Vital signs: Vital Signs Temp 96.9 F L 05/14/16 07:00 Pulse 72 05/14/16 07:31 Resp 18 05/14/16 07:00 BP 138/68 05/14/16 07:00 Pulse Ox 93 L 05/14/16 07:00 Intake & Output 05/13/16 05/14/16 05/14/16 18:59 06:59 18:59 Other: Voiding Method Diaper Diaper Diaper Incontinent Incontinent Incontinent # Voids 3 1 # Bowel Movements 3 1 - Labs CBC & Chem 7: 05/12/16 07:26 05/13/16 17:06 Labs: Abnormal Lab Results - Last 24 Hours (Table) 05/13/16 05/13/16 05/13/16 Range/Units 11:52 17:00 17:06 Potassium 5.8 H (3.5-5.1) mmol/L POC Glucose (mg/dL) 102 H 158 H (75-99) mg/dL 05/13/16 05/14/16 Range/Units 21:16 02:02 Potassium (3.5-5.1) mmol/L POC Glucose (mg/dL) 150 H 135 H (75-99) mg/dL Assessment and Plan Plan: Assessment: #1. Nonoliguric acute kidney injury secondary to ischemic ATN secondary to pancreatitis. Renal function improved with creatinine of 1.29 as of yesterday. #2. Chronic kidney disease stage III secondary to diabetic kidney disease with baseline creatinine in the range of 1-1.5. #3. Bilateral lower extremity DVTs. #4. Hypernatremia secondary to lack of free water intake. #5. Acute pancreatitis. #6. Mild hyperkalemia related to hyperglycemia and potentially high potassium intake. #7. Atrial fibrillation. Plan: Encourage oral water intake. Maintain D5W running at 40 mL an hour for now. Avoid nephrotoxic agents and hypotensive episodes. Advised tight blood sugar control. Low potassium diet. Follow-up labs and repeat electrolytes in the morning.
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
[2016-05-14 11:35] LABS: Prothrombin Time 58.3 sec (9.0-12.0)
[2016-05-14 11:43] LABS: INR 5.8 (<1.1)
[2016-05-14 12:04] LABS: Calcium 8.8 mg/dL (8.4-10.2); Potassium 5.2 mmol/L (3.5-5.1)
[2016-05-14 12:12] LABS: Glucose,Whole Blood 108 mg/dL (75-99)
[2016-05-14] MEDS: FOLIC ACID 1 MG TAB PO SCH (12:29)
[2016-05-14] MEDS: DEXTROSE 5% IN WATER 1,000 ML IV SCH (12:29)
[2016-05-14] MEDS: FERROUS SULFATE 325 MG TAB PO SCH (16:19)
[2016-05-14] MEDS: WARFARIN 5 MG TAB PO SCH (17:24)
[2016-05-14] MEDS: TAMSULOSIN 0.4 MG CAP.ER.24H PO SCH (17:34)
[2016-05-14 17:40] LABS: Glucose,Whole Blood 82 mg/dL (75-99)
[2016-05-14 21:19] LABS: Glucose,Whole Blood 83 mg/dL (75-99)
[2016-05-14] MEDS: ATORVASTATIN 10 MG TAB PO SCH (22:27)
[2016-05-14] MEDS: FENOFIBRATE 160 MG TAB PO SCH (22:27)
[2016-05-14] MEDS: POLYETHYLENE GLYCOL 3350 17 GM POWD.PACK PO SCH (22:27)
[2016-05-15 02:17] LABS: Glucose,Whole Blood 88 mg/dL (75-99)
[2016-05-15] MEDS: INSULIN GLARGINE 100 UNIT/ML 10 ML VIAL SQ SCH ×2 (02:55→21:38)
[2016-05-15] MEDS: INSULIN LISPRO (humaLOG) 300 UNIT/3 ML VIAL SQ SCH ×5 (02:56→21:38)
[2016-05-15] MEDS: DIVALPROEX 500 MG TABLET.DR PO SCH ×2 (06:11→16:44)
[2016-05-15] MEDS: LEVALBUTEROL NEB 1.25 MG/3 ML AMP INHALATION SCH ×3 (07:18→20:19)
[2016-05-15] MEDS: ALLOPURINOL 100 MG TAB PO SCH (08:01)
[2016-05-15] MEDS: PANTOPRAZOLE 40 MG TABLET PO SCH (08:01)
[2016-05-15] MEDS: PHENAZOPYRIDINE 100 MG TAB PO SCH ×3 (08:01→21:45)
[2016-05-15] MEDS: CARVEDILOL 12.5 MG TAB PO SCH ×2 (08:01→17:55)
[2016-05-15] MEDS: predniSONE 20 MG TAB PO SCH (08:01)
[2016-05-15] MEDS: CALCIUM CARB-VIT D 500MG-200UN 1 EACH TAB PO SCH ×2 (08:01→21:36)
[2016-05-15] MEDS: levETIRAcetam 500 MG TAB PO SCH ×2 (08:01→16:45)
[2016-05-15] MEDS: VENLAFAXINE HCL ER 150 MG CAP PO SCH (08:02)
[2016-05-15] MEDS: VERAPAMIL 40 MG TAB PO SCH ×3 (08:02→21:33)
[2016-05-15 08:25] LABS: Glucose,Whole Blood 74 mg/dL (75-99)
[2016-05-15 08:54] LABS: Prothrombin Time 71.7 sec (9.0-12.0)
[2016-05-15 09:11] LABS: Potassium 6.3 mmol/L (3.5-5.1)
[2016-05-15] MEDS ORDERED: SODIUM POLYSTYRENE SULFONATE 15 GM/60 ML BOTTLE PO STA (10:33)
[2016-05-15] MEDS ORDERED: CALCIUM GLUCONATE 1,000 MG in SODIUM CHLORIDE 0.9% 100 ML IVPB ONE (10:33)
[2016-05-15] MEDS ORDERED: DEXTROSE 50%-WATER 50 ML SYRINGE IVP STA (10:43)
[2016-05-15] MEDS ORDERED: PHYTONADIONE ORAL 5 MG/5 ML ORAL.SYRG PO STA (10:43)
[2016-05-15] MEDS ORDERED: INSULIN REGULAR 100 UNIT/ML VIAL IV ONE (10:43)
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
[2016-05-15] MEDS: FOLIC ACID 1 MG TAB PO SCH (12:15)
[2016-05-15] MEDS: ERGOCALCIFEROL 50,000 UNIT CAP PO SCH (12:15)
[2016-05-15 12:29] LABS: Glucose,Whole Blood 125 mg/dL (75-99)
--- NOTE | 2016-05-15 12:49 | P.PN ---
Subjective This is a 56-year-old gentleman who has paraplegia and multiple comorbidities. He was admitted with shortness of breath and abdominal discomfort. He was found to have pancreatitis. He was also found to have bilateral lower extremity DVTs and an indeterminate VQ scan for suspected pulmonary embolism. He remains anticoagulated with warfarin. He is seen again today 05/15/2016 in follow-up on the regular medical floor. He is awake and alert in no acute distress. We've been able to decrease his FiO2 down to 3 L/m per nasal cannula to maintain O2 saturations in the mid 90s. He continues to utilize BiPAP in the evenings. Most recent chest x-ray was showed stable findings. There is continued evidence of chronic emphysema changes, cardiomegaly and left basilar atelectasis. He has remained stable from the pulmonary standpoint. The plan is to be transferred back to [facility]. Objective - Vital Signs Vital signs: Vital Signs Temp 97.0 F L 05/15/16 07:00 Pulse 70 05/15/16 07:26 Resp 16 05/15/16 07:00 BP 120/74 05/15/16 07:00 Pulse Ox 95 05/15/16 07:00 Intake & Output 05/14/16 05/15/16 05/15/16 18:59 06:59 18:59 Intake Total 120 1490 320 Balance 120 1490 320 Weight 113.6 kg 113.6 kg Intake: Oral 120 1490 320 Other: Voiding Method Diaper Diaper Incontinent Incontinent # Voids 2 3 - Exam GENERAL EXAM: Alert, fairly comfortable at rest. HEAD: Normocephalic. EYES: Normal reaction of pupils, equal size. NOSE: Clear with pink turbinates. THROAT: There is some crowding the posterior pharynx. No erythema or exudates. NECK: Short. No masses, no JVD. CHEST: No chest wall deformity. LUNGS: Equal air entry with bilateral wheezing, crackles in the posterior bases , more so on the left. Diminished. CVS: S1 and S2 normal with no audible murmurs, regular rhythm. ABDOMEN: Obese, tender in the upper quadrant. Bowel sounds are present. Extremities: There is 1-2+ lower extremity peripheral edema. No clubbing, no cyanosis. Peripheral pulses are intact. - Labs CBC & Chem 7: 05/12/16 07:26 05/15/16 08:21 Labs: Abnormal Lab Results - Last 24 Hours (Table) 05/15/16 05/15/16 05/15/16 Range/Units 07:51 08:21 08:21 PT 71.7 H (9.0-12.0) sec INR 7.0 H* (<1.1) Sodium 147 H (137-145) mmol/L Potassium 6.3 H* (3.5-5.1) mmol/L Chloride 110 H (98-107) mmol/L BUN 68 H (9-20) mg/dL Creatinine 1.58 H (0.66-1.25) mg/dL Glucose 100 H (74-99) mg/dL POC Glucose (mg/dL) 74 L (75-99) mg/dL 05/15/16 Range/Units 12:24 PT (9.0-12.0) sec INR (<1.1) Sodium (137-145) mmol/L Potassium (3.5-5.1) mmol/L Chloride (98-107) mmol/L BUN (9-20) mg/dL Creatinine (0.66-1.25) mg/dL Glucose (74-99) mg/dL POC Glucose (mg/dL) 125 H (75-99) mg/dL Assessment and Plan Plan: Impression: #1 Acute epigastric pain secondary to pancreatitis. #2 Acute hypoxic respiratory failure secondary to acute exacerbation of suspected diastolic congestive heart failure, utilizing intermittent BiPAP. There is also a left basilar atelectasis and suspected pleural effusion. No plans for thoracentesis at this time as his oxygen requirements are decreased and he has having less symptoms of shortness of breath. #3 Acute pancreatitis, recovered. #4 Bilateral lower extremity DVT and suspected PE. Anticoagulated with warfarin , current INR 7.0. Yesterday was 5.8 and no warfarin was given.. #5 Paraplegia, functional. #6 Acute on chronic renal failure, improved current creatinine 1.50. #7 Advanced chronic obstructive pulmonary disease. #8 Chronic atrial fibrillation. #9 Suspect underlying obstructive sleep apnea/obesity/hypoventilation syndrome. Plan: The patient was seen and evaluated by Dr. Barrett. Continue bronchodilators and systemic steroids. Continue oxygen and maintaining O2 saturations greater than 90% currently on 3 L/m per nasal cannula. Continue BiPAP as needed. He is cleared for transfer to the extended care facility from the pulmonary standpoint. His supratherapeutic INR will need to be addressed. We'll see the patient on as-needed basis.
[2016-05-15] MEDS: DEXTROSE 5% IN WATER 1,000 ML IV SCH (13:29)
[2016-05-15] MEDS: FERROUS SULFATE 325 MG TAB PO SCH (16:44)
[2016-05-15] MEDS: TAMSULOSIN 0.4 MG CAP.ER.24H PO SCH (18:02)
[2016-05-15] MEDS: WARFARIN 5 MG TAB PO SCH (18:02)
[2016-05-15 20:55] LABS: Glucose,Whole Blood 202 mg/dL (75-99)
[2016-05-15] MEDS: ATORVASTATIN 10 MG TAB PO SCH (21:35)
[2016-05-15] MEDS: FENOFIBRATE 160 MG TAB PO SCH (21:36)
[2016-05-15] MEDS: POLYETHYLENE GLYCOL 3350 17 GM POWD.PACK PO SCH (21:46)
[2016-05-16 02:21] LABS: Glucose,Whole Blood 123 mg/dL (75-99)
[2016-05-16] MEDS: INSULIN LISPRO (humaLOG) 300 UNIT/3 ML VIAL SQ SCH ×5 (06:21→21:18)
[2016-05-16] MEDS: DIVALPROEX 500 MG TABLET.DR PO SCH ×2 (06:40→17:15)
[2016-05-16 07:45] LABS: Glucose,Whole Blood 155 mg/dL (75-99)
[2016-05-16] MEDS: LEVALBUTEROL NEB 1.25 MG/3 ML AMP INHALATION SCH ×3 (08:06→19:59)
[2016-05-16] MEDS: CARVEDILOL 12.5 MG TAB PO SCH ×2 (08:48→17:25)
[2016-05-16] MEDS: ALLOPURINOL 100 MG TAB PO SCH (08:48)
[2016-05-16] MEDS: predniSONE 20 MG TAB PO SCH (08:49)
[2016-05-16] MEDS: PANTOPRAZOLE 40 MG TABLET PO SCH (08:49)
[2016-05-16] MEDS: levETIRAcetam 500 MG TAB PO SCH ×2 (08:49→17:15)
[2016-05-16] MEDS: VENLAFAXINE HCL ER 150 MG CAP PO SCH (08:50)
[2016-05-16] MEDS: CALCIUM CARB-VIT D 500MG-200UN 1 EACH TAB PO SCH ×2 (08:50→21:22)
[2016-05-16] MEDS: PHENAZOPYRIDINE 100 MG TAB PO SCH ×4 (08:50→21:23)
[2016-05-16] MEDS: VERAPAMIL 40 MG TAB PO SCH ×3 (08:51→21:23)
[2016-05-16 08:58] LABS: INR 3.7 (<1.1); Prothrombin Time 35.7 sec (9.0-12.0)
[2016-05-16 09:06] LABS: Calcium 8.9 mg/dL (8.4-10.2); Potassium 5.6 mmol/L (3.5-5.1)
--- NOTE | 2016-05-16 09:07 | XR ---
EXAMINATION TYPE: XR chest 1V DATE OF EXAM: 05/16/2016 8:58 AM COMPARISON: 05/11/2016 HISTORY: Shortness of breath TECHNIQUE: Single frontal view of the chest is obtained. FINDINGS: Bilateral lower lobe infiltrate and small effusion. Heart enlarged. No pneumothorax. Under lying COPD noted. IMPRESSION: 1. Stable bilateral lower lobe infiltrate and small effusion
[2016-05-16 10:29] LABS: Anisocytosis Slight; Basophils % (A) 0 %; CH 33.2; CHCM 31.5; Eosinophils % (A) 0 %; HCT 26.3 % (39.0-53.0); HDW 3.01; Hypochromasia Slight; Immature Gran Flag Marked; Luc # (Auto) 0.06; Luc % (Auto) 0; Lymphocytes # (A) 0.2 k/uL (1.0-4.8); Lymphocytes % (A) 1 %; MCHC 32.1 g/dL (31.0-37.0); Macrocytosis Moderate; Mean Platelet Volume 8.9; Monocytes # (A) 0.7 k/uL (0-1.0); Monocytes % (A) 4 %; Neutrophils # (A) 17.5 k/uL (1.3-7.7); Neutrophils % (A) 95 %; RBC 2.48 m/uL (4.30-5.90); RDW 16.4 % (11.5-15.5); WBC 18.4 k/uL (3.8-10.6); WBC (Perox) 18.73
[2016-05-16 10:32] LABS: HGB 8.4 gm/dL (13.0-17.5)
[2016-05-16] MEDS ORDERED: FUROSEMIDE 10 MG/ML 4 ML VIAL IV STA ×2 (10:36→14:36)
[2016-05-16 10:39] LABS: Manual Review Performed; Toxic Granulation Present
[2016-05-16] MEDS: FOLIC ACID 1 MG TAB PO SCH (11:29)
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
[2016-05-16 12:24] LABS: ABG Base Excess -2.1 mmol/L; ABG HCO3 21 mmol/L (21-25); ABG PCO2 27 mmHg (35-45); ABG PH 7.49 (7.35-7.45); ABG PO2 154 mmHg (83-108); ABG TCO2 22 mmol/L (19-24)
[2016-05-16 12:30] LABS: Glucose,Whole Blood 147 mg/dL (75-99)
[2016-05-16] MEDS: DEXTROSE 5% IN WATER 1,000 ML IV SCH (13:16)
[2016-05-16 14:31] LABS: ABG Base Excess 1.9 mmol/L; ABG HCO3 26 mmol/L (21-25); ABG PCO2 41 mmHg (35-45); ABG PH 7.42 (7.35-7.45); ABG PO2 50 mmHg (83-108); ABG TCO2 27 mmol/L (19-24)
--- NOTE | 2016-05-16 15:22 | P.PN ---
Subjective Principal diagnosis: Acute pancreatitis This is a 56-year-old gentleman who has paraplegia and multiple comorbidities. He was admitted with shortness of breath and abdominal discomfort. He was found to have pancreatitis. He was also found to have bilateral lower extremity DVTs and an indeterminate VQ scan for suspected pulmonary embolism. He remains anticoagulated with warfarin. He is seen again today 05/15/2016 in follow-up on the regular medical floor. He is awake and alert in no acute distress. We've been able to decrease his FiO2 down to 3 L/m per nasal cannula to maintain O2 saturations in the mid 90s. He continues to utilize BiPAP in the evenings. Most recent chest x-ray was showed stable findings. There is continued evidence of chronic emphysema changes, cardiomegaly and left basilar atelectasis. He has remained stable from the pulmonary standpoint. The plan is to be transferred back to [facility]. Patient was reevaluated today for worsening oxygenation, and desaturation, couple of ABGs were done, patient was placed on BiPAP, recommended diuresing the patient, I also recommended keeping him on the present course of treatment including bronchodilators, incentive spirometry, and his hypoxemia is basically multifactorial. The possibility of pulmonary embolism is not entirely ruled out , since the patient had history of DVT, and patient is still on Coumadin, his INR is therapeutic. Objective - Vital Signs Vital signs: Vital Signs Temp 97.8 F 05/16/16 07:00 Pulse 78 05/16/16 13:35 Resp 16 05/16/16 08:52 BP 155/80 05/16/16 07:00 Pulse Ox 90 L 05/16/16 08:52 Intake & Output 05/15/16 05/16/16 05/16/16 18:59 06:59 18:59 Intake Total 440 0 Output Total 3 Balance 440 0 -3 Weight 113.6 kg Intake: Oral 440 0 Output: Stool 3 Other: Voiding Method Diaper Diaper Diaper Incontinent Incontinent Incontinent # Voids 1 1 # Bowel Movements 0 - Exam GENERAL EXAM: Alert, fairly comfortable at rest. HEAD: Normocephalic. EYES: Normal reaction of pupils, equal size. NOSE: Clear with pink turbinates. THROAT: There is some crowding the posterior pharynx. No erythema or exudates. NECK: Short. No masses, no JVD. CHEST: No chest wall deformity. LUNGS: Equal air entry with bilateral wheezing, crackles in the posterior bases , more so on the left. Diminished. CVS: S1 and S2 normal with no audible murmurs, regular rhythm. ABDOMEN: Obese, tender in the upper quadrant. Bowel sounds are present. Extremities: There is 1-2+ lower extremity peripheral edema. No clubbing, no cyanosis. Peripheral pulses are intact. - Labs CBC & Chem 7: 05/16/16 08:00 05/16/16 08:00 Labs: Abnormal Lab Results - Last 24 Hours (Table) 05/15/16 05/16/16 05/16/16 Range/Units 20:41 02:14 07:41 WBC (3.8-10.6) k/uL RBC (4.30-5.90) m/uL Hgb (13.0-17.5) gm/dL Hct (39.0-53.0) % MCV (80.0-100.0) fL RDW (11.5-15.5) % Neutrophils # (1.3-7.7) k/uL Lymphocytes # (1.0-4.8) k/uL PT (9.0-12.0) sec ABG pH (7.35-7.45) ABG pCO2 (35-45) mmHg ABG pO2 (83-108) mmHg ABG HCO3 (21-25) mmol/L ABG Total CO2 (19-24) mmol/L ABG O2 Saturation (94-97) % Sodium (137-145) mmol/L Potassium (3.5-5.1) mmol/L BUN (9-20) mg/dL Creatinine (0.66-1.25) mg/dL Glucose (74-99) mg/dL POC Glucose (mg/dL) 202 H 123 H 155 H (75-99) mg/dL 05/16/16 05/16/16 05/16/16 Range/Units 08:00 08:00 08:00 WBC 18.4 H (3.8-10.6) k/uL RBC 2.48 L (4.30-5.90) m/uL Hgb 8.4 L D (13.0-17.5) gm/dL Hct 26.3 L (39.0-53.0) % MCV 106.0 H (80.0-100.0) fL RDW 16.4 H (11.5-15.5) % Neutrophils # 17.5 H (1.3-7.7) k/uL Lymphocytes # 0.2 L (1.0-4.8) k/uL PT 35.7 H (9.0-12.0) sec ABG pH (7.35-7.45) ABG pCO2 (35-45) mmHg ABG pO2 (83-108) mmHg ABG HCO3 (21-25) mmol/L ABG Total CO2 (19-24) mmol/L ABG O2 Saturation (94-97) % Sodium 146 H (137-145) mmol/L Potassium 5.6 H (3.5-5.1) mmol/L BUN 75 H (9-20) mg/dL Creatinine 1.69 H (0.66-1.25) mg/dL Glucose 143 H (74-99) mg/dL POC Glucose (mg/dL) (75-99) mg/dL 05/16/16 05/16/16 05/16/16 Range/Units 10:05 12:26 14:20 WBC (3.8-10.6) k/uL RBC (4.30-5.90) m/uL Hgb (13.0-17.5) gm/dL Hct (39.0-53.0) % MCV (80.0-100.0) fL RDW (11.5-15.5) % Neutrophils # (1.3-7.7) k/uL Lymphocytes # (1.0-4.8) k/uL PT (9.0-12.0) sec ABG pH 7.49 H (7.35-7.45) ABG pCO2 27 L (35-45) mmHg ABG pO2 154 H 50 L (83-108) mmHg ABG HCO3 26 H (21-25) mmol/L ABG Total CO2 27 H (19-24) mmol/L ABG O2 Saturation 100.0 H 86.0 L (94-97) % Sodium (137-145) mmol/L Potassium (3.5-5.1) mmol/L BUN (9-20) mg/dL Creatinine (0.66-1.25) mg/dL Glucose (74-99) mg/dL POC Glucose (mg/dL) 147 H (75-99) mg/dL Assessment and Plan Plan: #1 Acute epigastric pain secondary to pancreatitis. #2 Acute hypoxic respiratory failure secondary to acute exacerbation of suspected diastolic congestive heart failure, utilizing intermittent BiPAP. There is also a left basilar atelectasis and suspected pleural effusion. No plans for thoracentesis at this time as his oxygen requirements are decreased and he has having less symptoms of shortness of breath. #3 Acute pancreatitis, recovered. #4 Bilateral lower extremity DVT and suspected PE. Anticoagulated with warfarin , current INR 7.0. Yesterday was 5.8 and no warfarin was given.. #5 Paraplegia, functional. #6 Acute on chronic renal failure, improved current creatinine 1.50. #7 Advanced chronic obstructive pulmonary disease. #8 Chronic atrial fibrillation. #9 Suspect underlying obstructive sleep apnea/obesity/hypoventilation syndrome. Recommendation: Continue bronchodilators, steroids, oxygen, diuretics, continue BiPAP, patient is not quite ready for be transferred at this point. Overall long-term prognosis is definitely poor and guarded. His INR is therapeutic. Time with Patient: Less than 30
--- NOTE | 2016-05-16 15:27 | PN ---
Patient is seen for follow-up for acute kidney injury on top of chronic kidney disease. Baseline creatinine has been about 1.5 mg/dL. His creatinine in the hospital has been about 1.6 to 1.5 mg/dL. It had been down to around 1.2 on 05/13/2016. Patient has been incontinent. He has had urine output. He is currently maintained on BiPAP. He denies any significant shortness of breath. On examination, I do not see any current blood pressures documented. The patient is awake and communicating, carrying on a conversation. Examination of the heart S1 and S2. Examination of the lungs: Decreased breath sounds in bases. Abdomen is soft, morbidly obese. Examination of lower extremities shows edema 1+. Patient states that he is not able to move his legs. Labs reveal hemoglobin 8.4 g/dL, sodium 146, potassium 5.6, serum creatinine 1.69, BUN is at 75. ASSESSMENT: 1. Acute kidney injury with recent worsening of renal function, currently patient is maintained on D5W at 40 mL/h. There is evidence of pleural effusions on the chest x-ray. He received Lasix times today. I will maintain him on Lasix on a regular basis for now. He does appear to be volume overloaded. 2. Pancreatitis on this admission, currently resolved. 3. Chronic kidney disease, stage III, secondary to diabetic kidney disease with baseline creatinine around 1.5. 4. Bilateral lower extremity deep venous thromboses with possibility of pulmonary embolism. 5. Diurese patient. He did receive one dose of Lasix today and repeat another dose in a.m. or this p.m. if needed. 6. Hypernatremia, maintained on D5W, which we can continue. It is currently at about 40 mL/h. 7. Mild hyperkalemia which should improve with the IV Lasix.
[2016-05-16 17:03] LABS: Glucose,Whole Blood 125 mg/dL (75-99)
[2016-05-16] MEDS: FERROUS SULFATE 325 MG TAB PO SCH (17:15)
[2016-05-16] MEDS: WARFARIN 5 MG TAB PO SCH (17:26)
[2016-05-16] MEDS: TAMSULOSIN 0.4 MG CAP.ER.24H PO SCH (17:26)
[2016-05-16 20:56] LABS: Glucose,Whole Blood 117 mg/dL (75-99)
[2016-05-16] MEDS ORDERED: PANTOPRAZOLE 40 MG/10 ML VIAL IVP SCH (21:00)
[2016-05-16] MEDS: INSULIN GLARGINE 100 UNIT/ML 10 ML VIAL SQ SCH (21:19)
[2016-05-16] MEDS: POLYETHYLENE GLYCOL 3350 17 GM POWD.PACK PO SCH (21:22)
[2016-05-16] MEDS: ATORVASTATIN 10 MG TAB PO SCH (21:22)
[2016-05-16] MEDS: FENOFIBRATE 160 MG TAB PO SCH (21:22)
[2016-05-16 22:51] LABS: Glucose,Whole Blood 112 mg/dL (75-99)
[2016-05-16 22:57] VITALS: RESP 24; TEMP 96.7
[2016-05-16] MEDS ORDERED: DEXTROSE 5% IN WATER 100 ML with AMIODARONE 150 MG IV ONE (23:07)
[2016-05-16] MEDS ORDERED: DEXTROSE 5% IN WATER 250 ML with AMIODARONE 300 MG IV ONE (23:07)
[2016-05-16] MEDS ORDERED: NOREPINEPHRINE 4 MG in SODIUM CHLORIDE 0.9% 250 ML IV SCH (23:45)
[2016-05-16 23:57] LABS: Glucose,Whole Blood 106 mg/dL (75-99)
[2016-05-16] MEDS ORDERED: NOREPINEPHRINE 4 MG-0.9% NS PMX 250 ML IV ONE (23:57)
[2016-05-17] MEDS ORDERED: methylPREDNISolone SOD SUCCI 40 MG/ML 1 ML VIAL IV SCH
[2016-05-17] MEDS ORDERED: LORazepam 2 MG/ML SYRINGE IV PRN (00:23)
[2016-05-17] MEDS ORDERED: MORPHINE SULFATE 4 MG/ML SYRINGE IV PRN (00:23)
[2016-05-17 00:26] LABS: Potassium 6.6 mmol/L (3.5-5.1)
[2016-05-17] MEDS ORDERED: MORPHINE SULFATE (100 MG/2 ML) 100 MG in SODIUM CHLORIDE 0.9% 100 ML IV SCH (00:30)
--- NOTE | 2016-05-17 01:30 | ED ---
Medical Decision Making - Medical Decision Making A code was called on this patient at 10:44 PM Eastern standard time. Patient was found to be pulseless. CPR was started on the patient. This did include necessity of cardioversion as well as IV medications. Patient did require intubation as he was apneic. Patient ultimately did regain pulses and blood pressure. He was transferred to the intensive care unit. The total critical care time on this event was 38 minutes. Of note a second code was called later on in the evening and the patient was intensive care unit. He was found be hypotensive and apparently briefly pulses were difficult to get by the time I arrived the patient had pulses and a hypotensive blood pressure. He did maintain his balance first and is on the vent. This is a brief encounter. Additionally the patient's chest x-ray was reviewed the endotracheal tube was in good position. This was placed by the MANAGER SAFE. - Lab Data Result diagrams: 05/16/16 08:00 05/16/16 23:37 Lab Results 04/27/16 04/27/16 04/27/16 Range/Units 09:09 10:33 10:33 WBC 10.1 (3.8-10.6) k/uL RBC 3.87 L (4.30-5.90) m/uL Hgb 13.3 (13.0-17.5) gm/dL Hct 40.8 (39.0-53.0) % MCV 105.5 H (80.0-100.0) fL MCH 34.3 (25.0-35.0) pg MCHC 32.5 (31.0-37.0) g/dL RDW 15.2 (11.5-15.5) % Plt Count 314 (150-450) k/uL Neutrophils % 85 % Neutrophils % (Manual) % Band Neutrophils % % Lymphocytes % 6 % Lymphocytes % (Manual) % Monocytes % 7 % Monocytes % (Manual) % Eosinophils % 1 % Eosinophils % (Manual) % Basophils % 0 % Metamyelocytes % % Myelocytes % % Neutrophils # 8.6 H (1.3-7.7) k/uL Neutrophils # (Manual) (1.3-7.7) k/uL Lymphocytes # 0.6 L (1.0-4.8) k/uL Lymphocytes # (Manual) (1.0-4.8) k/uL Monocytes # 0.7 (0-1.0) k/uL Monocytes # (Manual) (0-1.0) k/uL Eosinophils # 0.1 (0-0.7) k/uL Eosinophils # (Manual) (0-0.7) k/uL Basophils # 0.0 (0-0.2) k/uL Nucleated RBCs (0-0) /100 WBC Manual Slide Review Toxic Granulation Toxic Vacuolation Large Platelets Polychromasia Hypochromasia Poikilocytosis (manual Basophilic Stippling Anisocytosis Anisocytosis (manual) Macrocytosis Moderate PT (9.0-12.0) sec INR (<1.1) APTT (22.0-30.0) sec D-Dimer (<0.60) mg/L FEU Sample Site ABG pH (7.35-7.45) ABG pCO2 (35-45) mmHg ABG pO2 (83-108) mmHg ABG HCO3 (21-25) mmol/L ABG Total CO2 (19-24) mmol/L ABG O2 Saturation (94-97) % ABG Base Excess mmol/L FiO2 % Sodium (137-145) mmol/L Potassium (3.5-5.1) mmol/L Chloride (98-107) mmol/L Carbon Dioxide (22-30) mmol/L Anion Gap mmol/L BUN (9-20) mg/dL Creatinine (0.66-1.25) mg/dL Est GFR (MDRD) Af Amer (>60 ml/min/1.73 sqM) Est GFR (MDRD) Non-Af (>60 ml/min/1.73 sqM) Glucose (74-99) mg/dL POC Glucose (mg/dL) 149 H (75-99) mg/dL POC Glu Hydro Station Operator ID Kamilla Licona Estimated Ave Glu mg/dL mg/dL Hemoglobin A1c (4.2-6.1) % Plasma Lactic Acid Clay (0.7-2.0) mmol/L Calcium (8.4-10.2) mg/dL Phosphorus (2.5-4.5) mg/dL Magnesium (1.6-2.3) mg/dL Total Bilirubin (0.2-1.3) mg/dL AST (17-59) U/L ALT (21-72) U/L Alkaline Phosphatase (38-126) U/L Total Creatine Kinase 76 (55-170) U/L CK-MB (CK-2) 0.7 (0.0-2.4) ng/mL CK-MB (CK-2) Rel Index 0.9 Troponin I <0.012 (0.000-0.034) ng/mL NT-Pro-B Natriuret Pep pg/mL Total Protein (6.3-8.2) g/dL Albumin (3.5-5.0) g/dL Triglycerides (<150) mg/dL Cholesterol (<200) mg/dL LDL Cholesterol, Calc (0-99) mg/dL HDL Cholesterol (40-60) mg/dL Amylase (30-110) U/L Lipase (23-300) U/L Urine Color Urine Appearance (Clear) Urine pH (5.0-8.0) Ur Specific [place] (1.001-1.035) Urine Protein (Negative) Urine Glucose (UA) (Negative) Urine Ketones (Negative) Urine Blood (Negative) Urine Nitrate (Negative) Urine Bilirubin (Negative) Urine Urobilinogen (<2.0) mg/dL Ur Leukocyte Esterase (Negative) Urine WBC (0-5) /hpf Amorphous Sediment (None) /hpf Hyaline Casts (0-2) /lpf Granular Casts (0) /lpf Urine Mucus (None) /hpf Hepatitis A IgM Ab Hep Bs Antigen Hep B Core IgM Ab Hep C IgG Ab (Negative) 04/27/16 04/27/16 04/27/16 Range/Units 10:33 10:33 12:04 WBC (3.8-10.6) k/uL RBC (4.30-5.90) m/uL Hgb (13.0-17.5) gm/dL Hct (39.0-53.0) % MCV (80.0-100.0) fL MCH (25.0-35.0) pg MCHC (31.0-37.0) g/dL RDW (11.5-15.5) % Plt Count (150-450) k/uL Neutrophils % % Neutrophils % (Manual) % Band Neutrophils % % Lymphocytes % % Lymphocytes % (Manual) % Monocytes % % Monocytes % (Manual) % Eosinophils % % Eosinophils % (Manual) % Basophils % % Metamyelocytes % % Myelocytes % % Neutrophils # (1.3-7.7) k/uL Neutrophils # (Manual) (1.3-7.7) k/uL Lymphocytes # (1.0-4.8) k/uL Lymphocytes # (Manual) (1.0-4.8) k/uL Monocytes # (0-1.0) k/uL Monocytes # (Manual) (0-1.0) k/uL Eosinophils # (0-0.7) k/uL Eosinophils # (Manual) (0-0.7) k/uL Basophils # (0-0.2) k/uL Nucleated RBCs (0-0) /100 WBC Manual Slide Review Toxic Granulation Toxic Vacuolation Large Platelets Polychromasia Hypochromasia Poikilocytosis (manual Basophilic Stippling Anisocytosis Anisocytosis (manual) Macrocytosis PT (9.0-12.0) sec INR (<1.1) APTT (22.0-30.0) sec D-Dimer 2.06 H (<0.60) mg/L FEU Sample Site ABG pH (7.35-7.45) ABG pCO2 (35-45) mmHg ABG pO2 (83-108) mmHg ABG HCO3 (21-25) mmol/L ABG Total CO2 (19-24) mmol/L ABG O2 Saturation (94-97) % ABG Base Excess mmol/L FiO2 % Sodium 141 (137-145) mmol/L Potassium 5.3 H (3.5-5.1) mmol/L Chloride 106 (98-107) mmol/L Carbon Dioxide 24 (22-30) mmol/L Anion Gap 11 mmol/L BUN 28 H (9-20) mg/dL Creatinine 1.70 H (0.66-1.25) mg/dL Est GFR (MDRD) Af Amer 51 (>60 ml/min/1.73 sqM) Est GFR (MDRD) Non-Af 42 (>60 ml/min/1.73 sqM) Glucose 151 H (74-99) mg/dL POC Glucose (mg/dL) 142 H (75-99) mg/dL POC Glu Hydro Station Operator ID Livan Kamilla Estimated Ave Glu mg/dL mg/dL Hemoglobin A1c (4.2-6.1) % Plasma Lactic Acid Clay (0.7-2.0) mmol/L Calcium 9.6 (8.4-10.2) mg/dL Phosphorus (2.5-4.5) mg/dL Magnesium (1.6-2.3) mg/dL Total Bilirubin (0.2-1.3) mg/dL AST (17-59) U/L ALT (21-72) U/L Alkaline Phosphatase (38-126) U/L Total Creatine Kinase (55-170) U/L CK-MB (CK-2) (0.0-2.4) ng/mL CK-MB (CK-2) Rel Index Troponin I (0.000-0.034) ng/mL NT-Pro-B Natriuret Pep pg/mL Total Protein (6.3-8.2) g/dL Albumin (3.5-5.0) g/dL Triglycerides (<150) mg/dL Cholesterol (<200) mg/dL LDL Cholesterol, Calc (0-99) mg/dL HDL Cholesterol (40-60) mg/dL Amylase (30-110) U/L Lipase (23-300) U/L Urine Color Urine Appearance (Clear) Urine pH (5.0-8.0) Ur Specific [place] (1.001-1.035) Urine Protein (Negative) Urine Glucose (UA) (Negative) Urine Ketones (Negative) Urine Blood (Negative) Urine Nitrate (Negative) Urine Bilirubin (Negative) Urine Urobilinogen (<2.0) mg/dL Ur Leukocyte Esterase (Negative) Urine WBC (0-5) /hpf Amorphous Sediment (None) /hpf Hyaline Casts (0-2) /lpf Granular Casts (0) /lpf Urine Mucus (None) /hpf Hepatitis A IgM Ab Hep Bs Antigen Hep B Core IgM Ab Hep C IgG Ab (Negative) 04/27/16 04/27/16 04/27/16 Range/Units 16:08 17:32 20:49 WBC (3.8-10.6) k/uL RBC (4.30-5.90) m/uL Hgb (13.0-17.5) gm/dL Hct (39.0-53.0) % MCV (80.0-100.0) fL MCH (25.0-35.0) pg MCHC (31.0-37.0) g/dL RDW (11.5-15.5) % Plt Count (150-450) k/uL Neutrophils % % Neutrophils % (Manual) % Band Neutrophils % % Lymphocytes % % Lymphocytes % (Manual) % Monocytes % % Monocytes % (Manual) % Eosinophils % % Eosinophils % (Manual) % Basophils % % Metamyelocytes % % Myelocytes % % Neutrophils # (1.3-7.7) k/uL Neutrophils # (Manual) (1.3-7.7) k/uL Lymphocytes # (1.0-4.8) k/uL Lymphocytes # (Manual) (1.0-4.8) k/uL Monocytes # (0-1.0) k/uL Monocytes # (Manual) (0-1.0) k/uL Eosinophils # (0-0.7) k/uL Eosinophils # (Manual) (0-0.7) k/uL Basophils # (0-0.2) k/uL Nucleated RBCs (0-0) /100 WBC Manual Slide Review Toxic Granulation Toxic Vacuolation Large Platelets Polychromasia Hypochromasia Poikilocytosis (manual Basophilic Stippling Anisocytosis Anisocytosis (manual) Macrocytosis PT (9.0-12.0) sec INR (<1.1) APTT (22.0-30.0) sec D-Dimer (<0.60) mg/L FEU Sample Site ABG pH (7.35-7.45) ABG pCO2 (35-45) mmHg ABG pO2 (83-108) mmHg ABG HCO3 (21-25) mmol/L ABG Total CO2 (19-24) mmol/L ABG O2 Saturation (94-97) % ABG Base Excess mmol/L FiO2 % Sodium (137-145) mmol/L Potassium (3.5-5.1) mmol/L Chloride (98-107) mmol/L Carbon Dioxide (22-30) mmol/L Anion Gap mmol/L BUN (9-20) mg/dL Creatinine (0.66-1.25) mg/dL Est GFR (MDRD) Af Amer (>60 ml/min/1.73 sqM) Est GFR (MDRD) Non-Af (>60 ml/min/1.73 sqM) Glucose (74-99) mg/dL POC Glucose (mg/dL) 144 H 149 H (75-99) mg/dL POC Glu Hydro Station Operator ID Livan, Kavitha Boucher Estimated Ave Glu mg/dL mg/dL Hemoglobin A1c (4.2-6.1) % Plasma Lactic Acid Clay (0.7-2.0) mmol/L Calcium (8.4-10.2) mg/dL Phosphorus (2.5-4.5) mg/dL Magnesium (1.6-2.3) mg/dL Total Bilirubin (0.2-1.3) mg/dL AST (17-59) U/L ALT (21-72) U/L Alkaline Phosphatase (38-126) U/L Total Creatine Kinase 64 (55-170) U/L CK-MB (CK-2) 0.5 (0.0-2.4) ng/mL CK-MB (CK-2) Rel Index 0.8 Troponin I <0.012 (0.000-0.034) ng/mL NT-Pro-B Natriuret Pep pg/mL Total Protein (6.3-8.2) g/dL Albumin (3.5-5.0) g/dL Triglycerides (<150) mg/dL Cholesterol (<200) mg/dL LDL Cholesterol, Calc (0-99) mg/dL HDL Cholesterol (40-60) mg/dL Amylase (30-110) U/L Lipase (23-300) U/L Urine Color Urine Appearance (Clear) Urine pH (5.0-8.0) Ur Specific [place] (1.001-1.035) Urine Protein (Negative) Urine Glucose (UA) (Negative) Urine Ketones (Negative) Urine Blood (Negative) Urine Nitrate (Negative) Urine Bilirubin (Negative) Urine Urobilinogen (<2.0) mg/dL Ur Leukocyte Esterase (Negative) Urine WBC (0-5) /hpf Amorphous Sediment (None) /hpf Hyaline Casts (0-2) /lpf Granular Casts (0) /lpf Urine Mucus (None) /hpf Hepatitis A IgM Ab Hep Bs Antigen Hep B Core IgM Ab Hep C IgG Ab (Negative) 04/28/16 04/28/16 04/28/16 Range/Units 06:08 06:08 06:08 WBC 16.4 H (3.8-10.6) k/uL RBC 4.09 L (4.30-5.90) m/uL Hgb 13.6 (13.0-17.5) gm/dL Hct 45.3 (39.0-53.0) % MCV 110.6 H D (80.0-100.0) fL MCH 33.3 (25.0-35.0) pg MCHC 30.1 L (31.0-37.0) g/dL RDW 15.8 H (11.5-15.5) % Plt Count 323 (150-450) k/uL Neutrophils % % Neutrophils % (Manual) 54.0 % Band Neutrophils % 21.0 % Lymphocytes % % Lymphocytes % (Manual) 12.0 % Monocytes % % Monocytes % (Manual) 5.5 % Eosinophils % % Eosinophils % (Manual) % Basophils % % Metamyelocytes % 5.5 % Myelocytes % 2.0 % Neutrophils # (1.3-7.7) k/uL Neutrophils # (Manual) 12.3 H (1.3-7.7) k/uL Lymphocytes # (1.0-4.8) k/uL Lymphocytes # (Manual) 2.0 (1.0-4.8) k/uL Monocytes # (0-1.0) k/uL Monocytes # (Manual) 0.9 (0-1.0) k/uL Eosinophils # (0-0.7) k/uL Eosinophils # (Manual) (0-0.7) k/uL Basophils # (0-0.2) k/uL Nucleated RBCs 0 (0-0) /100 WBC Manual Slide Review Performed Toxic Granulation Toxic Vacuolation Large Platelets Polychromasia Present Hypochromasia Slight Poikilocytosis (manual Basophilic Stippling Anisocytosis Anisocytosis (manual) Present Macrocytosis Marked PT (9.0-12.0) sec INR (<1.1) APTT (22.0-30.0) sec D-Dimer (<0.60) mg/L FEU Sample Site ABG pH (7.35-7.45) ABG pCO2 (35-45) mmHg ABG pO2 (83-108) mmHg ABG HCO3 (21-25) mmol/L ABG Total CO2 (19-24) mmol/L ABG O2 Saturation (94-97) % ABG Base Excess mmol/L FiO2 % Sodium 143 (137-145) mmol/L Potassium 6.0 H (3.5-5.1) mmol/L Chloride 104 (98-107) mmol/L Carbon Dioxide 24 (22-30) mmol/L Anion Gap 15 mmol/L BUN 43 H (9-20) mg/dL Creatinine 3.50 H (0.66-1.25) mg/dL Est GFR (MDRD) Af Amer 22 (>60 ml/min/1.73 sqM) Est GFR (MDRD) Non-Af 18 (>60 ml/min/1.73 sqM) Glucose 160 H (74-99) mg/dL POC Glucose (mg/dL) (75-99) mg/dL POC Glu Hydro Station Operator ID Estimated Ave Glu mg/dL mg/dL Hemoglobin A1c (4.2-6.1) % Plasma Lactic Acid Clay (0.7-2.0) mmol/L Calcium 9.2 (8.4-10.2) mg/dL Phosphorus (2.5-4.5) mg/dL Magnesium (1.6-2.3) mg/dL Total Bilirubin 1.0 (0.2-1.3) mg/dL AST 49 (17-59) U/L ALT 32 (21-72) U/L Alkaline Phosphatase 77 (38-126) U/L Total Creatine Kinase (55-170) U/L CK-MB (CK-2) (0.0-2.4) ng/mL CK-MB (CK-2) Rel Index Troponin I (0.000-0.034) ng/mL NT-Pro-B Natriuret Pep 1810 pg/mL Total Protein 5.9 L (6.3-8.2) g/dL Albumin 3.2 L (3.5-5.0) g/dL Triglycerides 235 H (<150) mg/dL Cholesterol 120 (<200) mg/dL LDL Cholesterol, Calc 46 (0-99) mg/dL HDL Cholesterol 27 L (40-60) mg/dL Amylase 632 H* (30-110) U/L Lipase 93118 H (23-300) U/L Urine Color Urine Appearance (Clear) Urine pH (5.0-8.0) Ur Specific [place] (1.001-1.035) Urine Protein (Negative) Urine Glucose (UA) (Negative) Urine Ketones (Negative) Urine Blood (Negative) Urine Nitrate (Negative) Urine Bilirubin (Negative) Urine Urobilinogen (<2.0) mg/dL Ur Leukocyte Esterase (Negative) Urine WBC (0-5) /hpf Amorphous Sediment (None) /hpf Hyaline Casts (0-2) /lpf Granular Casts (0) /lpf Urine Mucus (None) /hpf Hepatitis A IgM Ab Hep Bs Antigen Hep B Core IgM Ab Hep C IgG Ab (Negative) 04/28/16 04/28/16 04/28/16 Range/Units 07:01 10:44 10:44 WBC (3.8-10.6) k/uL RBC (4.30-5.90) m/uL Hgb (13.0-17.5) gm/dL Hct (39.0-53.0) % MCV (80.0-100.0) fL MCH (25.0-35.0) pg MCHC (31.0-37.0) g/dL RDW (11.5-15.5) % Plt Count (150-450) k/uL Neutrophils % % Neutrophils % (Manual) % Band Neutrophils % % Lymphocytes % % Lymphocytes % (Manual) % Monocytes % % Monocytes % (Manual) % Eosinophils % % Eosinophils % (Manual) % Basophils % % Metamyelocytes % % Myelocytes % % Neutrophils # (1.3-7.7) k/uL Neutrophils # (Manual) (1.3-7.7) k/uL Lymphocytes # (1.0-4.8) k/uL Lymphocytes # (Manual) (1.0-4.8) k/uL Monocytes # (0-1.0) k/uL Monocytes # (Manual) (0-1.0) k/uL Eosinophils # (0-0.7) k/uL Eosinophils # (Manual) (0-0.7) k/uL Basophils # (0-0.2) k/uL Nucleated RBCs (0-0) /100 WBC Manual Slide Review Toxic Granulation Toxic Vacuolation Large Platelets Polychromasia Hypochromasia Poikilocytosis (manual Basophilic Stippling Anisocytosis Anisocytosis (manual) Macrocytosis PT (9.0-12.0) sec INR (<1.1) APTT (22.0-30.0) sec D-Dimer (<0.60) mg/L FEU Sample Site ABG pH (7.35-7.45) ABG pCO2 (35-45) mmHg ABG pO2 (83-108) mmHg ABG HCO3 (21-25) mmol/L ABG Total CO2 (19-24) mmol/L ABG O2 Saturation (94-97) % ABG Base Excess mmol/L FiO2 % Sodium (137-145) mmol/L Potassium (3.5-5.1) mmol/L Chloride (98-107) mmol/L Carbon Dioxide (22-30) mmol/L Anion Gap mmol/L BUN (9-20) mg/dL Creatinine (0.66-1.25) mg/dL Est GFR (MDRD) Af Amer (>60 ml/min/1.73 sqM) Est GFR (MDRD) Non-Af (>60 ml/min/1.73 sqM) Glucose (74-99) mg/dL POC Glucose (mg/dL) 158 H (75-99) mg/dL POC Glu Hydro Station Operator ID Kavitha Fox Estimated Ave Glu mg/dL 151 mg/dL Hemoglobin A1c 6.9 H (4.2-6.1) % Plasma Lactic Acid Clay 2.4 H* (0.7-2.0) mmol/L Calcium (8.4-10.2) mg/dL Phosphorus (2.5-4.5) mg/dL Magnesium (1.6-2.3) mg/dL Total Bilirubin (0.2-1.3) mg/dL AST (17-59) U/L ALT (21-72) U/L Alkaline Phosphatase (38-126) U/L Total Creatine Kinase (55-170) U/L CK-MB (CK-2) (0.0-2.4) ng/mL CK-MB (CK-2) Rel Index Troponin I (0.000-0.034) ng/mL NT-Pro-B Natriuret Pep pg/mL Total Protein (6.3-8.2) g/dL Albumin (3.5-5.0) g/dL Triglycerides (<150) mg/dL Cholesterol (<200) mg/dL LDL Cholesterol, Calc (0-99) mg/dL HDL Cholesterol (40-60) mg/dL Amylase (30-110) U/L Lipase (23-300) U/L Urine Color Urine Appearance (Clear) Urine pH (5.0-8.0) Ur Specific [place] (1.001-1.035) Urine Protein (Negative) Urine Glucose (UA) (Negative) Urine Ketones (Negative) Urine Blood (Negative) Urine Nitrate (Negative) Urine Bilirubin (Negative) Urine Urobilinogen (<2.0) mg/dL Ur Leukocyte Esterase (Negative) Urine WBC (0-5) /hpf Amorphous Sediment (None) /hpf Hyaline Casts (0-2) /lpf Granular Casts (0) /lpf Urine Mucus (None) /hpf Hepatitis A IgM Ab Hep Bs Antigen Hep B Core IgM Ab Hep C IgG Ab (Negative) 04/28/16 04/28/16 04/28/16 Range/Units 11:14 12:20 15:00 WBC (3.8-10.6) k/uL RBC (4.30-5.90) m/uL Hgb (13.0-17.5) gm/dL Hct (39.0-53.0) % MCV (80.0-100.0) fL MCH (25.0-35.0) pg MCHC (31.0-37.0) g/dL RDW (11.5-15.5) % Plt Count (150-450) k/uL Neutrophils % % Neutrophils % (Manual) % Band Neutrophils % % Lymphocytes % % Lymphocytes % (Manual) % Monocytes % % Monocytes % (Manual) % Eosinophils % % Eosinophils % (Manual) % Basophils % % Metamyelocytes % % Myelocytes % % Neutrophils # (1.3-7.7) k/uL Neutrophils # (Manual) (1.3-7.7) k/uL Lymphocytes # (1.0-4.8) k/uL Lymphocytes # (Manual) (1.0-4.8) k/uL Monocytes # (0-1.0) k/uL Monocytes # (Manual) (0-1.0) k/uL Eosinophils # (0-0.7) k/uL Eosinophils # (Manual) (0-0.7) k/uL Basophils # (0-0.2) k/uL Nucleated RBCs (0-0) /100 WBC Manual Slide Review Toxic Granulation Toxic Vacuolation Large Platelets Polychromasia Hypochromasia Poikilocytosis (manual Basophilic Stippling Anisocytosis Anisocytosis (manual) Macrocytosis PT (9.0-12.0) sec INR (<1.1) APTT (22.0-30.0) sec D-Dimer (<0.60) mg/L FEU Sample Site ABG pH (7.35-7.45) ABG pCO2 (35-45) mmHg ABG pO2 (83-108) mmHg ABG HCO3 (21-25) mmol/L ABG Total CO2 (19-24) mmol/L ABG O2 Saturation (94-97) % ABG Base Excess mmol/L FiO2 % Sodium (137-145) mmol/L Potassium (3.5-5.1) mmol/L Chloride (98-107) mmol/L Carbon Dioxide (22-30) mmol/L Anion Gap mmol/L BUN (9-20) mg/dL Creatinine (0.66-1.25) mg/dL Est GFR (MDRD) Af Amer (>60 ml/min/1.73 sqM) Est GFR (MDRD) Non-Af (>60 ml/min/1.73 sqM) Glucose (74-99) mg/dL POC Glucose (mg/dL) 189 H 167 H (75-99) mg/dL POC Glu Hydro Station Operator SIDRA Leyla Shivani Mayer, Shivani Estimated Ave Glu mg/dL mg/dL Hemoglobin A1c (4.2-6.1) % Plasma Lactic Acid Clay 2.1 H (0.7-2.0) mmol/L Calcium (8.4-10.2) mg/dL Phosphorus (2.5-4.5) mg/dL Magnesium (1.6-2.3) mg/dL Total Bilirubin (0.2-1.3) mg/dL AST (17-59) U/L ALT (21-72) U/L Alkaline Phosphatase (38-126) U/L Total Creatine Kinase (55-170) U/L CK-MB (CK-2) (0.0-2.4) ng/mL CK-MB (CK-2) Rel Index Troponin I (0.000-0.034) ng/mL NT-Pro-B Natriuret Pep pg/mL Total Protein (6.3-8.2) g/dL Albumin (3.5-5.0) g/dL Triglycerides (<150) mg/dL Cholesterol (<200) mg/dL LDL Cholesterol, Calc (0-99) mg/dL HDL Cholesterol (40-60) mg/dL Amylase (30-110) U/L Lipase (23-300) U/L Urine Color Urine Appearance (Clear) Urine pH (5.0-8.0) Ur Specific [place] (1.001-1.035) Urine Protein (Negative) Urine Glucose (UA) (Negative) Urine Ketones (Negative) Urine Blood (Negative) Urine Nitrate (Negative) Urine Bilirubin (Negative) Urine Urobilinogen (<2.0) mg/dL Ur Leukocyte Esterase (Negative) Urine WBC (0-5) /hpf Amorphous Sediment (None) /hpf Hyaline Casts (0-2) /lpf Granular Casts (0) /lpf Urine Mucus (None) /hpf Hepatitis A IgM Ab Hep Bs Antigen Hep B Core IgM Ab Hep C IgG Ab (Negative) 04/28/16 04/28/16 04/28/16 Range/Units 15:00 15:59 16:56 WBC (3.8-10.6) k/uL RBC (4.30-5.90) m/uL Hgb (13.0-17.5) gm/dL Hct (39.0-53.0) % MCV (80.0-100.0) fL MCH (25.0-35.0) pg MCHC (31.0-37.0) g/dL RDW (11.5-15.5) % Plt Count (150-450) k/uL Neutrophils % % Neutrophils % (Manual) % Band Neutrophils % % Lymphocytes % % Lymphocytes % (Manual) % Monocytes % % Monocytes % (Manual) % Eosinophils % % Eosinophils % (Manual) % Basophils % % Metamyelocytes % % Myelocytes % % Neutrophils # (1.3-7.7) k/uL Neutrophils # (Manual) (1.3-7.7) k/uL Lymphocytes # (1.0-4.8) k/uL Lymphocytes # (Manual) (1.0-4.8) k/uL Monocytes # (0-1.0) k/uL Monocytes # (Manual) (0-1.0) k/uL Eosinophils # (0-0.7) k/uL Eosinophils # (Manual) (0-0.7) k/uL Basophils # (0-0.2) k/uL Nucleated RBCs (0-0) /100 WBC Manual Slide Review Toxic Granulation Toxic Vacuolation Large Platelets Polychromasia Hypochromasia Poikilocytosis (manual Basophilic Stippling Anisocytosis Anisocytosis (manual) Macrocytosis PT 12.6 H (9.0-12.0) sec INR 1.3 (<1.1) APTT (22.0-30.0) sec D-Dimer (<0.60) mg/L FEU Sample Site ABG pH (7.35-7.45) ABG pCO2 (35-45) mmHg ABG pO2 (83-108) mmHg ABG HCO3 (21-25) mmol/L ABG Total CO2 (19-24) mmol/L ABG O2 Saturation (94-97) % ABG Base Excess mmol/L FiO2 % Sodium 145 (137-145) mmol/L Potassium 5.7 H (3.5-5.1) mmol/L Chloride 106 (98-107) mmol/L Carbon Dioxide 26 (22-30) mmol/L Anion Gap 13 mmol/L BUN (9-20) mg/dL Creatinine (0.66-1.25) mg/dL Est GFR (MDRD) Af Amer (>60 ml/min/1.73 sqM) Est GFR (MDRD) Non-Af (>60 ml/min/1.73 sqM) Glucose (74-99) mg/dL POC Glucose (mg/dL) 163 H (75-99) mg/dL POC Glu Hydro Station Operator ID Tremayne Sim Estimated Ave Glu mg/dL mg/dL Hemoglobin A1c (4.2-6.1) % Plasma Lactic Acid Clay (0.7-2.0) mmol/L Calcium (8.4-10.2) mg/dL Phosphorus (2.5-4.5) mg/dL Magnesium (1.6-2.3) mg/dL Total Bilirubin (0.2-1.3) mg/dL AST (17-59) U/L ALT (21-72) U/L Alkaline Phosphatase (38-126) U/L Total Creatine Kinase (55-170) U/L CK-MB (CK-2) (0.0-2.4) ng/mL CK-MB (CK-2) Rel Index Troponin I (0.000-0.034) ng/mL NT-Pro-B Natriuret Pep pg/mL Total Protein (6.3-8.2) g/dL Albumin (3.5-5.0) g/dL Triglycerides (<150) mg/dL Cholesterol (<200) mg/dL LDL Cholesterol, Calc (0-99) mg/dL HDL Cholesterol (40-60) mg/dL Amylase (30-110) U/L Lipase (23-300) U/L Urine Color Urine Appearance (Clear) Urine pH (5.0-8.0) Ur Specific [place] (1.001-1.035) Urine Protein (Negative) Urine Glucose (UA) (Negative) Urine Ketones (Negative) Urine Blood (Negative) Urine Nitrate (Negative) Urine Bilirubin (Negative) Urine Urobilinogen (<2.0) mg/dL Ur Leukocyte Esterase (Negative) Urine WBC (0-5) /hpf Amorphous Sediment (None) /hpf Hyaline Casts (0-2) /lpf Granular Casts (0) /lpf Urine Mucus (None) /hpf Hepatitis A IgM Ab Hep Bs Antigen Hep B Core IgM Ab Hep C IgG Ab (Negative) 04/28/16 04/28/16 04/28/16 Range/Units 18:40 20:25 20:46 WBC (3.8-10.6) k/uL RBC (4.30-5.90) m/uL Hgb (13.0-17.5) gm/dL Hct (39.0-53.0) % MCV (80.0-100.0) fL MCH (25.0-35.0) pg MCHC (31.0-37.0) g/dL RDW (11.5-15.5) % Plt Count (150-450) k/uL Neutrophils % % Neutrophils % (Manual) % Band Neutrophils % % Lymphocytes % % Lymphocytes % (Manual) % Monocytes % % Monocytes % (Manual) % Eosinophils % % Eosinophils % (Manual) % Basophils % % Metamyelocytes % % Myelocytes % % Neutrophils # (1.3-7.7) k/uL Neutrophils # (Manual) (1.3-7.7) k/uL Lymphocytes # (1.0-4.8) k/uL Lymphocytes # (Manual) (1.0-4.8) k/uL Monocytes # (0-1.0) k/uL Monocytes # (Manual) (0-1.0) k/uL Eosinophils # (0-0.7) k/uL Eosinophils # (Manual) (0-0.7) k/uL Basophils # (0-0.2) k/uL Nucleated RBCs (0-0) /100 WBC Manual Slide Review Toxic Granulation Toxic Vacuolation Large Platelets Polychromasia Hypochromasia Poikilocytosis (manual Basophilic Stippling Anisocytosis Anisocytosis (manual) Macrocytosis PT (9.0-12.0) sec INR (<1.1) APTT 79.1 H (22.0-30.0) sec D-Dimer (<0.60) mg/L FEU Sample Site ABG pH (7.35-7.45) ABG pCO2 (35-45) mmHg ABG pO2 (83-108) mmHg ABG HCO3 (21-25) mmol/L ABG Total CO2 (19-24) mmol/L ABG O2 Saturation (94-97) % ABG Base Excess mmol/L FiO2 % Sodium (137-145) mmol/L Potassium (3.5-5.1) mmol/L Chloride (98-107) mmol/L Carbon Dioxide (22-30) mmol/L Anion Gap mmol/L BUN (9-20) mg/dL Creatinine (0.66-1.25) mg/dL Est GFR (MDRD) Af Amer (>60 ml/min/1.73 sqM) Est GFR (MDRD) Non-Af (>60 ml/min/1.73 sqM) Glucose (74-99) mg/dL POC Glucose (mg/dL) 187 H (75-99) mg/dL POC Glu Hydro Station Operator ID Cheryl East Estimated [address] Glu mg/dL mg/dL Hemoglobin A1c (4.2-6.1) % Plasma Lactic Acid Clay (0.7-2.0) mmol/L Calcium (8.4-10.2) mg/dL Phosphorus (2.5-4.5) mg/dL Magnesium (1.6-2.3) mg/dL Total Bilirubin (0.2-1.3) mg/dL AST (17-59) U/L ALT (21-72) U/L Alkaline Phosphatase (38-126) U/L Total Creatine Kinase (55-170) U/L CK-MB (CK-2) (0.0-2.4) ng/mL CK-MB (CK-2) Rel Index Troponin I (0.000-0.034) ng/mL NT-Pro-B Natriuret Pep pg/mL Total Protein (6.3-8.2) g/dL Albumin (3.5-5.0) g/dL Triglycerides (<150) mg/dL Cholesterol (<200) mg/dL LDL Cholesterol, Calc (0-99) mg/dL HDL Cholesterol (40-60) mg/dL Amylase (30-110) U/L Lipase (23-300) U/L Urine Color Yellow Urine Appearance Cloudy (Clear) Urine pH 5.5 (5.0-8.0) Ur Specific [place] 1.018 (1.001-1.035) Urine Protein 2+ H (Negative) Urine Glucose (UA) Trace H (Negative) Urine Ketones Trace H (Negative) Urine Blood Negative (Negative) Urine Nitrate Negative (Negative) Urine Bilirubin Negative (Negative) Urine Urobilinogen <2.0 (<2.0) mg/dL Ur Leukocyte Esterase Small H (Negative) Urine WBC 26 H (0-5) /hpf Amorphous Sediment Occasional H (None) /hpf Hyaline Casts 22 H (0-2) /lpf Granular Casts 19 (0) /lpf Urine Mucus Rare H (None) /hpf Hepatitis A IgM Ab Hep Bs Antigen Hep B Core IgM Ab Hep C IgG Ab (Negative) 04/28/16 04/29/16 04/29/16 Range/Units 21:50 00:37 05:42 WBC 11.9 H (3.8-10.6) k/uL RBC 3.27 L (4.30-5.90) m/uL Hgb 11.0 L (13.0-17.5) gm/dL Hct 35.6 L (39.0-53.0) % MCV 109.0 H (80.0-100.0) fL MCH 33.8 (25.0-35.0) pg MCHC 31.0 (31.0-37.0) g/dL RDW 15.1 (11.5-15.5) % Plt Count 237 (150-450) k/uL Neutrophils % % Neutrophils % (Manual) 58.0 % Band Neutrophils % 19.5 % Lymphocytes % % Lymphocytes % (Manual) 7.0 % Monocytes % % Monocytes % (Manual) 10.0 % Eosinophils % % Eosinophils % (Manual) % Basophils % % Metamyelocytes % 5.0 % Myelocytes % 0.5 % Neutrophils # (1.3-7.7) k/uL Neutrophils # (Manual) 9.2 H (1.3-7.7) k/uL Lymphocytes # (1.0-4.8) k/uL Lymphocytes # (Manual) 0.8 L (1.0-4.8) k/uL Monocytes # (0-1.0) k/uL Monocytes # (Manual) 1.2 H (0-1.0) k/uL Eosinophils # (0-0.7) k/uL Eosinophils # (Manual) (0-0.7) k/uL Basophils # (0-0.2) k/uL Nucleated RBCs 0 (0-0) /100 WBC Manual Slide Review Performed Toxic Granulation Present Toxic Vacuolation Present Large Platelets Polychromasia Present Hypochromasia Slight Poikilocytosis (manual Basophilic Stippling Anisocytosis Anisocytosis (manual) Macrocytosis Marked PT (9.0-12.0) sec INR (<1.1) APTT (22.0-30.0) sec D-Dimer (<0.60) mg/L FEU Sample Site ABG pH (7.35-7.45) ABG pCO2 (35-45) mmHg ABG pO2 (83-108) mmHg ABG HCO3 (21-25) mmol/L ABG Total CO2 (19-24) mmol/L ABG O2 Saturation (94-97) % ABG Base Excess mmol/L FiO2 % Sodium (137-145) mmol/L Potassium 6.1 H (3.5-5.1) mmol/L Chloride (98-107) mmol/L Carbon Dioxide (22-30) mmol/L Anion Gap mmol/L BUN (9-20) mg/dL Creatinine (0.66-1.25) mg/dL Est GFR (MDRD) Af Amer (>60 ml/min/1.73 sqM) Est GFR (MDRD) Non-Af (>60 ml/min/1.73 sqM) Glucose (74-99) mg/dL POC Glucose (mg/dL) 187 H (75-99) mg/dL POC Glu Hydro Station Operator ID Vianca Otoole Estimated Ave Glu mg/dL mg/dL Hemoglobin A1c (4.2-6.1) % Plasma Lactic Acid Clay (0.7-2.0) mmol/L Calcium (8.4-10.2) mg/dL Phosphorus (2.5-4.5) mg/dL Magnesium (1.6-2.3) mg/dL Total Bilirubin (0.2-1.3) mg/dL AST (17-59) U/L ALT (21-72) U/L Alkaline Phosphatase (38-126) U/L Total Creatine Kinase (55-170) U/L CK-MB (CK-2) (0.0-2.4) ng/mL CK-MB (CK-2) Rel Index Troponin I (0.000-0.034) ng/mL NT-Pro-B Natriuret Pep pg/mL Total Protein (6.3-8.2) g/dL Albumin (3.5-5.0) g/dL Triglycerides (<150) mg/dL Cholesterol (<200) mg/dL LDL Cholesterol, Calc (0-99) mg/dL HDL Cholesterol (40-60) mg/dL Amylase (30-110) U/L Lipase (23-300) U/L Urine Color Urine Appearance (Clear) Urine pH (5.0-8.0) Ur Specific [place] (1.001-1.035) Urine Protein (Negative) Urine Glucose (UA) (Negative) Urine Ketones (Negative) Urine Blood (Negative) Urine Nitrate (Negative) Urine Bilirubin (Negative) Urine Urobilinogen (<2.0) mg/dL Ur Leukocyte Esterase (Negative) Urine WBC (0-5) /hpf Amorphous Sediment (None) /hpf Hyaline Casts (0-2) /lpf Granular Casts (0) /lpf Urine Mucus (None) /hpf Hepatitis A IgM Ab NEGATIVE Hep Bs Antigen Negative Hep B Core IgM Ab NEGATIVE Hep C IgG Ab Negative (Negative) 04/29/16 04/29/16 04/29/16 Range/Units 05:42 06:01 07:33 WBC (3.8-10.6) k/uL RBC (4.30-5.90) m/uL Hgb (13.0-17.5) gm/dL Hct (39.0-53.0) % MCV (80.0-100.0) fL MCH (25.0-35.0) pg MCHC (31.0-37.0) g/dL RDW (11.5-15.5) % Plt Count (150-450) k/uL Neutrophils % % Neutrophils % (Manual) % Band Neutrophils % % Lymphocytes % % Lymphocytes % (Manual) % Monocytes % % Monocytes % (Manual) % Eosinophils % % Eosinophils % (Manual) % Basophils % % Metamyelocytes % % Myelocytes % % Neutrophils # (1.3-7.7) k/uL Neutrophils # (Manual) (1.3-7.7) k/uL Lymphocytes # (1.0-4.8) k/uL Lymphocytes # (Manual) (1.0-4.8) k/uL Monocytes # (0-1.0) k/uL Monocytes # (Manual) (0-1.0) k/uL Eosinophils # (0-0.7) k/uL Eosinophils # (Manual) (0-0.7) k/uL Basophils # (0-0.2) k/uL Nucleated RBCs (0-0) /100 WBC Manual Slide Review Toxic Granulation Toxic Vacuolation Large Platelets Polychromasia Hypochromasia Poikilocytosis (manual Basophilic Stippling Anisocytosis Anisocytosis (manual) Macrocytosis PT (9.0-12.0) sec INR (<1.1) APTT 80.1 H (22.0-30.0) sec D-Dimer (<0.60) mg/L FEU Sample Site ABG pH (7.35-7.45) ABG pCO2 (35-45) mmHg ABG pO2 (83-108) mmHg ABG HCO3 (21-25) mmol/L ABG Total CO2 (19-24) mmol/L ABG O2 Saturation (94-97) % ABG Base Excess mmol/L FiO2 % Sodium 148 H (137-145) mmol/L Potassium 4.8 (3.5-5.1) mmol/L Chloride 106 (98-107) mmol/L Carbon Dioxide 27 (22-30) mmol/L Anion Gap 15 mmol/L BUN 57 H (9-20) mg/dL Creatinine 4.23 H (0.66-1.25) mg/dL Est GFR (MDRD) Af Amer 18 (>60 ml/min/1.73 sqM) Est GFR (MDRD) Non-Af 15 (>60 ml/min/1.73 sqM) Glucose 175 H (74-99) mg/dL POC Glucose (mg/dL) 164 H (75-99) mg/dL POC Glu Hydro Station Operator ID Cheryl East Estimated [address] Glu mg/dL mg/dL Hemoglobin A1c (4.2-6.1) % Plasma Lactic Acid Clay (0.7-2.0) mmol/L Calcium 8.1 L (8.4-10.2) mg/dL Phosphorus (2.5-4.5) mg/dL Magnesium (1.6-2.3) mg/dL Total Bilirubin 0.7 (0.2-1.3) mg/dL AST 35 (17-59) U/L ALT 31 (21-72) U/L Alkaline Phosphatase 64 (38-126) U/L Total Creatine Kinase (55-170) U/L CK-MB (CK-2) (0.0-2.4) ng/mL CK-MB (CK-2) Rel Index Troponin I (0.000-0.034) ng/mL NT-Pro-B Natriuret Pep pg/mL Total Protein 4.9 L (6.3-8.2) g/dL Albumin 2.5 L (3.5-5.0) g/dL Triglycerides (<150) mg/dL Cholesterol (<200) mg/dL LDL Cholesterol, Calc (0-99) mg/dL HDL Cholesterol (40-60) mg/dL Amylase 297 H (30-110) U/L Lipase 5166 H (23-300) U/L Urine Color Urine Appearance (Clear) Urine pH (5.0-8.0) Ur Specific [place] (1.001-1.035) Urine Protein (Negative) Urine Glucose (UA) (Negative) Urine Ketones (Negative) Urine Blood (Negative) Urine Nitrate (Negative) Urine Bilirubin (Negative) Urine Urobilinogen (<2.0) mg/dL Ur Leukocyte Esterase (Negative) Urine WBC (0-5) /hpf Amorphous Sediment (None) /hpf Hyaline Casts (0-2) /lpf Granular Casts (0) /lpf Urine Mucus (None) /hpf Hepatitis A IgM Ab Hep Bs Antigen Hep B Core IgM Ab Hep C IgG Ab (Negative) 04/29/16 04/29/16 04/30/16 Range/Units 12:00 17:49 00:00 WBC (3.8-10.6) k/uL RBC (4.30-5.90) m/uL Hgb (13.0-17.5) gm/dL Hct (39.0-53.0) % MCV (80.0-100.0) fL MCH (25.0-35.0) pg MCHC (31.0-37.0) g/dL RDW (11.5-15.5) % Plt Count (150-450) k/uL Neutrophils % % Neutrophils % (Manual) % Band Neutrophils % % Lymphocytes % % Lymphocytes % (Manual) % Monocytes % % Monocytes % (Manual) % Eosinophils % % Eosinophils % (Manual) % Basophils % % Metamyelocytes % % Myelocytes % % Neutrophils # (1.3-7.7) k/uL Neutrophils # (Manual) (1.3-7.7) k/uL Lymphocytes # (1.0-4.8) k/uL Lymphocytes # (Manual) (1.0-4.8) k/uL Monocytes # (0-1.0) k/uL Monocytes # (Manual) (0-1.0) k/uL Eosinophils # (0-0.7) k/uL Eosinophils # (Manual) (0-0.7) k/uL Basophils # (0-0.2) k/uL Nucleated RBCs (0-0) /100 WBC Manual Slide Review Toxic Granulation Toxic Vacuolation Large Platelets Polychromasia Hypochromasia Poikilocytosis (manual Basophilic Stippling Anisocytosis Anisocytosis (manual) Macrocytosis PT (9.0-12.0) sec INR (<1.1) APTT (22.0-30.0) sec D-Dimer (<0.60) mg/L FEU Sample Site ABG pH (7.35-7.45) ABG pCO2 (35-45) mmHg ABG pO2 (83-108) mmHg ABG HCO3 (21-25) mmol/L ABG Total CO2 (19-24) mmol/L ABG O2 Saturation (94-97) % ABG Base Excess mmol/L FiO2 % Sodium (137-145) mmol/L Potassium (3.5-5.1) mmol/L Chloride (98-107) mmol/L Carbon Dioxide (22-30) mmol/L Anion Gap mmol/L BUN (9-20) mg/dL Creatinine (0.66-1.25) mg/dL Est GFR (MDRD) Af Amer (>60 ml/min/1.73 sqM) Est GFR (MDRD) Non-Af (>60 ml/min/1.73 sqM) Glucose (74-99) mg/dL POC Glucose (mg/dL) 183 H 180 H 176 H (75-99) mg/dL POC Glu Hydro Station Operator SIDRA Calvillo, Melody Calvillo, Melody Lopes, Norma Estimated Ave Glu mg/dL mg/dL Hemoglobin A1c (4.2-6.1) % Plasma Lactic Acid Clay (0.7-2.0) mmol/L Calcium (8.4-10.2) mg/dL Phosphorus (2.5-4.5) mg/dL Magnesium (1.6-2.3) mg/dL Total Bilirubin (0.2-1.3) mg/dL AST (17-59) U/L ALT (21-72) U/L Alkaline Phosphatase (38-126) U/L Total Creatine Kinase (55-170) U/L CK-MB (CK-2) (0.0-2.4) ng/mL CK-MB (CK-2) Rel Index Troponin I (0.000-0.034) ng/mL NT-Pro-B Natriuret Pep pg/mL Total Protein (6.3-8.2) g/dL Albumin (3.5-5.0) g/dL Triglycerides (<150) mg/dL Cholesterol (<200) mg/dL LDL Cholesterol, Calc (0-99) mg/dL HDL Cholesterol (40-60) mg/dL Amylase (30-110) U/L Lipase (23-300) U/L Urine Color Urine Appearance (Clear) Urine pH (5.0-8.0) Ur Specific [place] (1.001-1.035) Urine Protein (Negative) Urine Glucose (UA) (Negative) Urine Ketones (Negative) Urine Blood (Negative) Urine Nitrate (Negative) Urine Bilirubin (Negative) Urine Urobilinogen (<2.0) mg/dL Ur Leukocyte Esterase (Negative) Urine WBC (0-5) /hpf Amorphous Sediment (None) /hpf Hyaline Casts (0-2) /lpf Granular Casts (0) /lpf Urine Mucus (None) /hpf Hepatitis A IgM Ab Hep Bs Antigen Hep B Core IgM Ab Hep C IgG Ab (Negative) 04/30/16 04/30/16 04/30/16 Range/Units 05:38 05:38 05:38 WBC 9.5 (3.8-10.6) k/uL RBC 2.74 L (4.30-5.90) m/uL Hgb 9.3 L D (13.0-17.5) gm/dL Hct 30.0 L (39.0-53.0) % MCV 109.3 H (80.0-100.0) fL MCH 34.0 (25.0-35.0) pg MCHC 31.1 (31.0-37.0) g/dL RDW 15.1 (11.5-15.5) % Plt Count 217 (150-450) k/uL Neutrophils % % Neutrophils % (Manual) 49.0 % Band Neutrophils % 36.5 % Lymphocytes % % Lymphocytes % (Manual) 5.0 % Monocytes % % Monocytes % (Manual) 9.0 % Eosinophils % % Eosinophils % (Manual) % Basophils % % Metamyelocytes % % Myelocytes % 0.5 % Neutrophils # (1.3-7.7) k/uL Neutrophils # (Manual) 8.1 H (1.3-7.7) k/uL Lymphocytes # (1.0-4.8) k/uL Lymphocytes # (Manual) 0.5 L (1.0-4.8) k/uL Monocytes # (0-1.0) k/uL Monocytes # (Manual) 0.9 (0-1.0) k/uL Eosinophils # (0-0.7) k/uL Eosinophils # (Manual) (0-0.7) k/uL Basophils # (0-0.2) k/uL Nucleated RBCs 0 (0-0) /100 WBC Manual Slide Review Performed Toxic Granulation Toxic Vacuolation Large Platelets Polychromasia Hypochromasia Slight Poikilocytosis (manual Basophilic Stippling Anisocytosis Anisocytosis (manual) Macrocytosis Marked PT (9.0-12.0) sec INR (<1.1) APTT 63.7 H (22.0-30.0) sec D-Dimer (<0.60) mg/L FEU Sample Site ABG pH (7.35-7.45) ABG pCO2 (35-45) mmHg ABG pO2 (83-108) mmHg ABG HCO3 (21-25) mmol/L ABG Total CO2 (19-24) mmol/L ABG O2 Saturation (94-97) % ABG Base Excess mmol/L FiO2 % Sodium 148 H (137-145) mmol/L Potassium 4.3 (3.5-5.1) mmol/L Chloride 108 H (98-107) mmol/L Carbon Dioxide 27 (22-30) mmol/L Anion Gap 13 mmol/L BUN 63 H (9-20) mg/dL Creatinine 3.67 H (0.66-1.25) mg/dL Est GFR (MDRD) Af Amer 21 (>60 ml/min/1.73 sqM) Est GFR (MDRD) Non-Af 17 (>60 ml/min/1.73 sqM) Glucose 158 H (74-99) mg/dL POC Glucose (mg/dL) (75-99) mg/dL POC Glu Hydro Station Operator ID Estimated Ave Glu mg/dL mg/dL Hemoglobin A1c (4.2-6.1) % Plasma Lactic Acid Clay (0.7-2.0) mmol/L Calcium 7.4 L (8.4-10.2) mg/dL Phosphorus (2.5-4.5) mg/dL Magnesium (1.6-2.3) mg/dL Total Bilirubin 0.6 (0.2-1.3) mg/dL AST 35 (17-59) U/L ALT 32 (21-72) U/L Alkaline Phosphatase 67 (38-126) U/L Total Creatine Kinase (55-170) U/L CK-MB (CK-2) (0.0-2.4) ng/mL CK-MB (CK-2) Rel Index Troponin I (0.000-0.034) ng/mL NT-Pro-B Natriuret Pep pg/mL Total Protein 4.7 L (6.3-8.2) g/dL Albumin 2.2 L (3.5-5.0) g/dL Triglycerides (<150) mg/dL Cholesterol (<200) mg/dL LDL Cholesterol, Calc (0-99) mg/dL HDL Cholesterol (40-60) mg/dL Amylase 74 (30-110) U/L Lipase 1490 H (23-300) U/L Urine Color Urine Appearance (Clear) Urine pH (5.0-8.0) Ur Specific [place] (1.001-1.035) Urine Protein (Negative) Urine Glucose (UA) (Negative) Urine Ketones (Negative) Urine Blood (Negative) Urine Nitrate (Negative) Urine Bilirubin (Negative) Urine Urobilinogen (<2.0) mg/dL Ur Leukocyte Esterase (Negative) Urine WBC (0-5) /hpf Amorphous Sediment (None) /hpf Hyaline Casts (0-2) /lpf Granular Casts (0) /lpf Urine Mucus (None) /hpf Hepatitis A IgM Ab Hep Bs Antigen Hep B Core IgM Ab Hep C IgG Ab (Negative) 04/30/16 04/30/16 04/30/16 Range/Units 06:00 11:53 16:51 WBC (3.8-10.6) k/uL RBC (4.30-5.90) m/uL Hgb (13.0-17.5) gm/dL Hct (39.0-53.0) % MCV (80.0-100.0) fL MCH (25.0-35.0) pg MCHC (31.0-37.0) g/dL RDW (11.5-15.5) % Plt Count (150-450) k/uL Neutrophils % % Neutrophils % (Manual) % Band Neutrophils % % Lymphocytes % % Lymphocytes % (Manual) % Monocytes % % Monocytes % (Manual) % Eosinophils % % Eosinophils % (Manual) % Basophils % % Metamyelocytes % % Myelocytes % % Neutrophils # (1.3-7.7) k/uL Neutrophils # (Manual) (1.3-7.7) k/uL Lymphocytes # (1.0-4.8) k/uL Lymphocytes # (Manual) (1.0-4.8) k/uL Monocytes # (0-1.0) k/uL Monocytes # (Manual) (0-1.0) k/uL Eosinophils # (0-0.7) k/uL Eosinophils # (Manual) (0-0.7) k/uL Basophils # (0-0.2) k/uL Nucleated RBCs (0-0) /100 WBC Manual Slide Review Toxic Granulation Toxic Vacuolation Large Platelets Polychromasia Hypochromasia Poikilocytosis (manual Basophilic Stippling Anisocytosis Anisocytosis (manual) Macrocytosis PT (9.0-12.0) sec INR (<1.1) APTT (22.0-30.0) sec D-Dimer (<0.60) mg/L FEU Sample Site ABG pH (7.35-7.45) ABG pCO2 (35-45) mmHg ABG pO2 (83-108) mmHg ABG HCO3 (21-25) mmol/L ABG Total CO2 (19-24) mmol/L ABG O2 Saturation (94-97) % ABG Base Excess mmol/L FiO2 % Sodium (137-145) mmol/L Potassium (3.5-5.1) mmol/L Chloride (98-107) mmol/L Carbon Dioxide (22-30) mmol/L Anion Gap mmol/L BUN (9-20) mg/dL Creatinine (0.66-1.25) mg/dL Est GFR (MDRD) Af Amer (>60 ml/min/1.73 sqM) Est GFR (MDRD) Non-Af (>60 ml/min/1.73 sqM) Glucose (74-99) mg/dL POC Glucose (mg/dL) 156 H 144 H 151 H (75-99) mg/dL POC Glu Hydro Station Operator ID Norma Lopes, Nicol Alcantara Estimated Ave Glu mg/dL mg/dL Hemoglobin A1c (4.2-6.1) % Plasma Lactic Acid Clay (0.7-2.0) mmol/L Calcium (8.4-10.2) mg/dL Phosphorus (2.5-4.5) mg/dL Magnesium (1.6-2.3) mg/dL Total Bilirubin (0.2-1.3) mg/dL AST (17-59) U/L ALT (21-72) U/L Alkaline Phosphatase (38-126) U/L Total Creatine Kinase (55-170) U/L CK-MB (CK-2) (0.0-2.4) ng/mL CK-MB (CK-2) Rel Index Troponin I (0.000-0.034) ng/mL NT-Pro-B Natriuret Pep pg/mL Total Protein (6.3-8.2) g/dL Albumin (3.5-5.0) g/dL Triglycerides (<150) mg/dL Cholesterol (<200) mg/dL LDL Cholesterol, Calc (0-99) mg/dL HDL Cholesterol (40-60) mg/dL Amylase (30-110) U/L Lipase (23-300) U/L Urine Color Urine Appearance (Clear) Urine pH (5.0-8.0) Ur Specific [place] (1.001-1.035) Urine Protein (Negative) Urine Glucose (UA) (Negative) Urine Ketones (Negative) Urine Blood (Negative) Urine Nitrate (Negative) Urine Bilirubin (Negative) Urine Urobilinogen (<2.0) mg/dL Ur Leukocyte Esterase (Negative) Urine WBC (0-5) /hpf Amorphous Sediment (None) /hpf Hyaline Casts (0-2) /lpf Granular Casts (0) /lpf Urine Mucus (None) /hpf Hepatitis A IgM Ab Hep Bs Antigen Hep B Core IgM Ab Hep C IgG Ab (Negative) 05/01/16 05/01/16 05/01/16 Range/Units 00:02 05:40 05:40 WBC 3.6 L (3.8-10.6) k/uL RBC 2.71 L (4.30-5.90) m/uL Hgb 9.2 L (13.0-17.5) gm/dL Hct 29.8 L (39.0-53.0) % MCV 109.7 H (80.0-100.0) fL MCH 34.0 (25.0-35.0) pg MCHC 31.0 (31.0-37.0) g/dL RDW 14.9 (11.5-15.5) % Plt Count 183 (150-450) k/uL Neutrophils % % Neutrophils % (Manual) 66.5 % Band Neutrophils % 22.0 % Lymphocytes % % Lymphocytes % (Manual) 5.0 % Monocytes % % Monocytes % (Manual) 6.0 % Eosinophils % % Eosinophils % (Manual) 0.5 % Basophils % % Metamyelocytes % % Myelocytes % % Neutrophils # (1.3-7.7) k/uL Neutrophils # (Manual) 3.2 (1.3-7.7) k/uL Lymphocytes # (1.0-4.8) k/uL Lymphocytes # (Manual) 0.2 L (1.0-4.8) k/uL Monocytes # (0-1.0) k/uL Monocytes # (Manual) 0.2 (0-1.0) k/uL Eosinophils # (0-0.7) k/uL Eosinophils # (Manual) 0.0 (0-0.7) k/uL Basophils # (0-0.2) k/uL Nucleated RBCs 0 (0-0) /100 WBC Manual Slide Review Toxic Granulation Toxic Vacuolation Large Platelets Polychromasia Hypochromasia Slight Poikilocytosis (manual Present Basophilic Stippling Anisocytosis Anisocytosis (manual) Present Macrocytosis Marked PT (9.0-12.0) sec INR (<1.1) APTT (22.0-30.0) sec D-Dimer (<0.60) mg/L FEU Sample Site ABG pH (7.35-7.45) ABG pCO2 (35-45) mmHg ABG pO2 (83-108) mmHg ABG HCO3 (21-25) mmol/L ABG Total CO2 (19-24) mmol/L ABG O2 Saturation (94-97) % ABG Base Excess mmol/L FiO2 % Sodium 146 H (137-145) mmol/L Potassium 3.4 L (3.5-5.1) mmol/L Chloride 106 (98-107) mmol/L Carbon Dioxide 28 (22-30) mmol/L Anion Gap 12 mmol/L BUN 57 H (9-20) mg/dL Creatinine 2.50 H (0.66-1.25) mg/dL Est GFR (MDRD) Af Amer 32 (>60 ml/min/1.73 sqM) Est GFR (MDRD) Non-Af 27 (>60 ml/min/1.73 sqM) Glucose 116 H (74-99) mg/dL POC Glucose (mg/dL) 153 H (75-99) mg/dL POC Glu Hydro Station Operator ID Norma Lopes Estimated Ave Glu mg/dL mg/dL Hemoglobin A1c (4.2-6.1) % Plasma Lactic Acid Clay (0.7-2.0) mmol/L Calcium 7.9 L (8.4-10.2) mg/dL Phosphorus 5.8 H (2.5-4.5) mg/dL Magnesium (1.6-2.3) mg/dL Total Bilirubin 0.6 (0.2-1.3) mg/dL AST 37 (17-59) U/L ALT 33 (21-72) U/L Alkaline Phosphatase 48 (38-126) U/L Total Creatine Kinase (55-170) U/L CK-MB (CK-2) (0.0-2.4) ng/mL CK-MB (CK-2) Rel Index Troponin I (0.000-0.034) ng/mL NT-Pro-B Natriuret Pep pg/mL Total Protein 4.2 L (6.3-8.2) g/dL Albumin 2.1 L (3.5-5.0) g/dL Triglycerides (<150) mg/dL Cholesterol (<200) mg/dL LDL Cholesterol, Calc (0-99) mg/dL HDL Cholesterol (40-60) mg/dL Amylase <30 L (30-110) U/L Lipase 628 H (23-300) U/L Urine Color Urine Appearance (Clear) Urine pH (5.0-8.0) Ur Specific [place] (1.001-1.035) Urine Protein (Negative) Urine Glucose (UA) (Negative) Urine Ketones (Negative) Urine Blood (Negative) Urine Nitrate (Negative) Urine Bilirubin (Negative) Urine Urobilinogen (<2.0) mg/dL Ur Leukocyte Esterase (Negative) Urine WBC (0-5) /hpf Amorphous Sediment (None) /hpf Hyaline Casts (0-2) /lpf Granular Casts (0) /lpf Urine Mucus (None) /hpf Hepatitis A IgM Ab Hep Bs Antigen Hep B Core IgM Ab Hep C IgG Ab (Negative) 05/01/16 05/01/16 05/01/16 Range/Units 05:40 05:40 05:51 WBC (3.8-10.6) k/uL RBC (4.30-5.90) m/uL Hgb (13.0-17.5) gm/dL Hct (39.0-53.0) % MCV (80.0-100.0) fL MCH (25.0-35.0) pg MCHC (31.0-37.0) g/dL RDW (11.5-15.5) % Plt Count (150-450) k/uL Neutrophils % % Neutrophils % (Manual) % Band Neutrophils % % Lymphocytes % % Lymphocytes % (Manual) % Monocytes % % Monocytes % (Manual) % Eosinophils % % Eosinophils % (Manual) % Basophils % % Metamyelocytes % % Myelocytes % % Neutrophils # (1.3-7.7) k/uL Neutrophils # (Manual) (1.3-7.7) k/uL Lymphocytes # (1.0-4.8) k/uL Lymphocytes # (Manual) (1.0-4.8) k/uL Monocytes # (0-1.0) k/uL Monocytes # (Manual) (0-1.0) k/uL Eosinophils # (0-0.7) k/uL Eosinophils # (Manual) (0-0.7) k/uL Basophils # (0-0.2) k/uL Nucleated RBCs (0-0) /100 WBC Manual Slide Review Toxic Granulation Toxic Vacuolation Large Platelets Polychromasia Hypochromasia Poikilocytosis (manual Basophilic Stippling Anisocytosis Anisocytosis (manual) Macrocytosis PT (9.0-12.0) sec INR (<1.1) APTT 44.3 H (22.0-30.0) sec D-Dimer (<0.60) mg/L FEU Sample Site ABG pH (7.35-7.45) ABG pCO2 (35-45) mmHg ABG pO2 (83-108) mmHg ABG HCO3 (21-25) mmol/L ABG Total CO2 (19-24) mmol/L ABG O2 Saturation (94-97) % ABG Base Excess mmol/L FiO2 % Sodium (137-145) mmol/L Potassium (3.5-5.1) mmol/L Chloride (98-107) mmol/L Carbon Dioxide (22-30) mmol/L Anion Gap mmol/L BUN (9-20) mg/dL Creatinine (0.66-1.25) mg/dL Est GFR (MDRD) Af Amer (>60 ml/min/1.73 sqM) Est GFR (MDRD) Non-Af (>60 ml/min/1.73 sqM) Glucose (74-99) mg/dL POC Glucose (mg/dL) 118 H (75-99) mg/dL POC Glu [employer] Operator ID Norma Lopes Estimated Ave Glu mg/dL mg/dL Hemoglobin A1c (4.2-6.1) % Plasma Lactic Acid Clay (0.7-2.0) mmol/L Calcium (8.4-10.2) mg/dL Phosphorus (2.5-4.5) mg/dL Magnesium 2.0 (1.6-2.3) mg/dL Total Bilirubin (0.2-1.3) mg/dL AST (17-59) U/L ALT (21-72) U/L Alkaline Phosphatase (38-126) U/L Total Creatine Kinase (55-170) U/L CK-MB (CK-2) (0.0-2.4) ng/mL CK-MB (CK-2) Rel Index Troponin I (0.000-0.034) ng/mL NT-Pro-B Natriuret Pep pg/mL Total Protein (6.3-8.2) g/dL Albumin (3.5-5.0) g/dL Triglycerides (<150) mg/dL Cholesterol (<200) mg/dL LDL Cholesterol, Calc (0-99) mg/dL HDL Cholesterol (40-60) mg/dL Amylase (30-110) U/L Lipase (23-300) U/L Urine Color Urine Appearance (Clear) Urine pH (5.0-8.0) Ur Specific [place] (1.001-1.035) Urine Protein (Negative) Urine Glucose (UA) (Negative) Urine Ketones (Negative) Urine Blood (Negative) Urine Nitrate (Negative) Urine Bilirubin (Negative) Urine Urobilinogen (<2.0) mg/dL Ur Leukocyte Esterase (Negative) Urine WBC (0-5) /hpf Amorphous Sediment (None) /hpf Hyaline Casts (0-2) /lpf Granular Casts (0) /lpf Urine Mucus (None) /hpf Hepatitis A IgM Ab Hep Bs Antigen Hep B Core IgM Ab Hep C IgG Ab (Negative) 05/01/16 05/01/16 05/01/16 Range/Units 11:32 14:08 16:50 WBC (3.8-10.6) k/uL RBC (4.30-5.90) m/uL Hgb (13.0-17.5) gm/dL Hct (39.0-53.0) % MCV (80.0-100.0) fL MCH (25.0-35.0) pg MCHC (31.0-37.0) g/dL RDW (11.5-15.5) % Plt Count (150-450) k/uL Neutrophils % % Neutrophils % (Manual) % Band Neutrophils % % Lymphocytes % % Lymphocytes % (Manual) % Monocytes % % Monocytes % (Manual) % Eosinophils % % Eosinophils % (Manual) % Basophils % % Metamyelocytes % % Myelocytes % % Neutrophils # (1.3-7.7) k/uL Neutrophils # (Manual) (1.3-7.7) k/uL Lymphocytes # (1.0-4.8) k/uL Lymphocytes # (Manual) (1.0-4.8) k/uL Monocytes # (0-1.0) k/uL Monocytes # (Manual) (0-1.0) k/uL Eosinophils # (0-0.7) k/uL Eosinophils # (Manual) (0-0.7) k/uL Basophils # (0-0.2) k/uL Nucleated RBCs (0-0) /100 WBC Manual Slide Review Toxic Granulation Toxic Vacuolation Large Platelets Polychromasia Hypochromasia Poikilocytosis (manual Basophilic Stippling Anisocytosis Anisocytosis (manual) Macrocytosis PT (9.0-12.0) sec INR (<1.1) APTT 67.9 H (22.0-30.0) sec D-Dimer (<0.60) mg/L FEU Sample Site ABG pH (7.35-7.45) ABG pCO2 (35-45) mmHg ABG pO2 (83-108) mmHg ABG HCO3 (21-25) mmol/L ABG Total CO2 (19-24) mmol/L ABG O2 Saturation (94-97) % ABG Base Excess mmol/L FiO2 % Sodium (137-145) mmol/L Potassium (3.5-5.1) mmol/L Chloride (98-107) mmol/L Carbon Dioxide (22-30) mmol/L Anion Gap mmol/L BUN (9-20) mg/dL Creatinine (0.66-1.25) mg/dL Est GFR (MDRD) Af Amer (>60 ml/min/1.73 sqM) Est GFR (MDRD) Non-Af (>60 ml/min/1.73 sqM) Glucose (74-99) mg/dL POC Glucose (mg/dL) 113 H 198 H (75-99) mg/dL POC Glu [employer] Operator Nicol Kate Donna Estimated Ave Glu mg/dL mg/dL Hemoglobin A1c (4.2-6.1) % Plasma Lactic Acid Clay (0.7-2.0) mmol/L Calcium (8.4-10.2) mg/dL Phosphorus (2.5-4.5) mg/dL Magnesium (1.6-2.3) mg/dL Total Bilirubin (0.2-1.3) mg/dL AST (17-59) U/L ALT (21-72) U/L Alkaline Phosphatase (38-126) U/L Total Creatine Kinase (55-170) U/L CK-MB (CK-2) (0.0-2.4) ng/mL CK-MB (CK-2) Rel Index Troponin I (0.000-0.034) ng/mL NT-Pro-B Natriuret Pep pg/mL Total Protein (6.3-8.2) g/dL Albumin (3.5-5.0) g/dL Triglycerides (<150) mg/dL Cholesterol (<200) mg/dL LDL Cholesterol, Calc (0-99) mg/dL HDL Cholesterol (40-60) mg/dL Amylase (30-110) U/L Lipase (23-300) U/L Urine Color Urine Appearance (Clear) Urine pH (5.0-8.0) Ur Specific [place] (1.001-1.035) Urine Protein (Negative) Urine Glucose (UA) (Negative) Urine Ketones (Negative) Urine Blood (Negative) Urine Nitrate (Negative) Urine Bilirubin (Negative) Urine Urobilinogen (<2.0) mg/dL Ur Leukocyte Esterase (Negative) Urine WBC (0-5) /hpf Amorphous Sediment (None) /hpf Hyaline Casts (0-2) /lpf Granular Casts (0) /lpf Urine Mucus (None) /hpf Hepatitis A IgM Ab Hep Bs Antigen Hep B Core IgM Ab Hep C IgG Ab (Negative) 05/01/16 05/01/16 05/02/16 Range/Units 18:33 23:47 01:22 WBC (3.8-10.6) k/uL RBC (4.30-5.90) m/uL Hgb (13.0-17.5) gm/dL Hct (39.0-53.0) % MCV (80.0-100.0) fL MCH (25.0-35.0) pg MCHC (31.0-37.0) g/dL RDW (11.5-15.5) % Plt Count (150-450) k/uL Neutrophils % % Neutrophils % (Manual) % Band Neutrophils % % Lymphocytes % % Lymphocytes % (Manual) % Monocytes % % Monocytes % (Manual) % Eosinophils % % Eosinophils % (Manual) % Basophils % % Metamyelocytes % % Myelocytes % % Neutrophils # (1.3-7.7) k/uL Neutrophils # (Manual) (1.3-7.7) k/uL Lymphocytes # (1.0-4.8) k/uL Lymphocytes # (Manual) (1.0-4.8) k/uL Monocytes # (0-1.0) k/uL Monocytes # (Manual) (0-1.0) k/uL Eosinophils # (0-0.7) k/uL Eosinophils # (Manual) (0-0.7) k/uL Basophils # (0-0.2) k/uL Nucleated RBCs (0-0) /100 WBC Manual Slide Review Toxic Granulation Toxic Vacuolation Large Platelets Polychromasia Hypochromasia Poikilocytosis (manual Basophilic Stippling Anisocytosis Anisocytosis (manual) Macrocytosis PT (9.0-12.0) sec INR (<1.1) APTT (22.0-30.0) sec D-Dimer (<0.60) mg/L FEU Sample Site LRA ABG pH 7.37 (7.35-7.45) ABG pCO2 40 (35-45) mmHg ABG pO2 87 (83-108) mmHg ABG HCO3 23 (21-25) mmol/L ABG Total CO2 24 (19-24) mmol/L ABG O2 Saturation 96.4 (94-97) % ABG Base Excess -1.7 mmol/L FiO2 80 % Sodium (137-145) mmol/L Potassium (3.5-5.1) mmol/L Chloride (98-107) mmol/L Carbon Dioxide (22-30) mmol/L Anion Gap mmol/L BUN (9-20) mg/dL Creatinine (0.66-1.25) mg/dL Est GFR (MDRD) Af Amer (>60 ml/min/1.73 sqM) Est GFR (MDRD) Non-Af (>60 ml/min/1.73 sqM) Glucose (74-99) mg/dL POC Glucose (mg/dL) 215 H 193 H (75-99) mg/dL POC Glu Hydro Station Operator ID Myshock, Norma Myshock, Norma [address]imated [address] Glu mg/dL mg/dL Hemoglobin A1c (4.2-6.1) % Plasma Lactic Acid Clay (0.7-2.0) mmol/L Calcium (8.4-10.2) mg/dL Phosphorus (2.5-4.5) mg/dL Magnesium (1.6-2.3) mg/dL Total Bilirubin (0.2-1.3) mg/dL AST (17-59) U/L ALT (21-72) U/L Alkaline Phosphatase (38-126) U/L Total Creatine Kinase (55-170) U/L CK-MB (CK-2) (0.0-2.4) ng/mL CK-MB (CK-2) Rel Index Troponin I (0.000-0.034) ng/mL NT-Pro-B Natriuret Pep pg/mL Total Protein (6.3-8.2) g/dL Albumin (3.5-5.0) g/dL Triglycerides (<150) mg/dL Cholesterol (<200) mg/dL LDL Cholesterol, Calc (0-99) mg/dL HDL Cholesterol (40-60) mg/dL Amylase (30-110) U/L Lipase (23-300) U/L Urine Color Urine Appearance (Clear) Urine pH (5.0-8.0) Ur Specific [place] (1.001-1.035) Urine Protein (Negative) Urine Glucose (UA) (Negative) Urine Ketones (Negative) Urine Blood (Negative) Urine Nitrate (Negative) Urine Bilirubin (Negative) Urine Urobilinogen (<2.0) mg/dL Ur Leukocyte Esterase (Negative) Urine WBC (0-5) /hpf Amorphous Sediment (None) /hpf Hyaline Casts (0-2) /lpf Granular Casts (0) /lpf Urine Mucus (None) /hpf Hepatitis A IgM Ab Hep Bs Antigen Hep B Core IgM Ab Hep C IgG Ab (Negative) 05/02/16 05/02/16 05/02/16 Range/Units 05:57 05:59 06:00 WBC (3.8-10.6) k/uL RBC (4.30-5.90) m/uL Hgb (13.0-17.5) gm/dL Hct (39.0-53.0) % MCV (80.0-100.0) fL MCH (25.0-35.0) pg MCHC (31.0-37.0) g/dL RDW (11.5-15.5) % Plt Count (150-450) k/uL Neutrophils % % Neutrophils % (Manual) % Band Neutrophils % % Lymphocytes % % Lymphocytes % (Manual) % Monocytes % % Monocytes % (Manual) % Eosinophils % % Eosinophils % (Manual) % Basophils % % Metamyelocytes % % Myelocytes % % Neutrophils # (1.3-7.7) k/uL Neutrophils # (Manual) (1.3-7.7) k/uL Lymphocytes # (1.0-4.8) k/uL Lymphocytes # (Manual) (1.0-4.8) k/uL Monocytes # (0-1.0) k/uL Monocytes # (Manual) (0-1.0) k/uL Eosinophils # (0-0.7) k/uL Eosinophils # (Manual) (0-0.7) k/uL Basophils # (0-0.2) k/uL Nucleated RBCs (0-0) /100 WBC Manual Slide Review Toxic Granulation Toxic Vacuolation Large Platelets Polychromasia Hypochromasia Poikilocytosis (manual Basophilic Stippling Anisocytosis Anisocytosis (manual) Macrocytosis PT (9.0-12.0) sec INR (<1.1) APTT 106.7 H* (22.0-30.0) sec D-Dimer (<0.60) mg/L FEU Sample Site ABG pH (7.35-7.45) ABG pCO2 (35-45) mmHg ABG pO2 (83-108) mmHg ABG HCO3 (21-25) mmol/L ABG Total CO2 (19-24) mmol/L ABG O2 Saturation (94-97) % ABG Base Excess mmol/L FiO2 % Sodium 146 H (137-145) mmol/L Potassium 3.4 L (3.5-5.1) mmol/L Chloride 107 (98-107) mmol/L Carbon Dioxide 27 (22-30) mmol/L Anion Gap 12 mmol/L BUN 58 H (9-20) mg/dL Creatinine 2.37 H (0.66-1.25) mg/dL Est GFR (MDRD) Af Amer 34 (>60 ml/min/1.73 sqM) Est GFR (MDRD) Non-Af 28 (>60 ml/min/1.73 sqM) Glucose 179 H (74-99) mg/dL POC Glucose (mg/dL) 169 H (75-99) mg/dL POC Glu Hydro Station Operator ID Norma Lopes [address] Glu mg/dL mg/dL Hemoglobin A1c (4.2-6.1) % Plasma Lactic Acid Clay (0.7-2.0) mmol/L Calcium 8.4 (8.4-10.2) mg/dL Phosphorus (2.5-4.5) mg/dL Magnesium 2.0 (1.6-2.3) mg/dL Total Bilirubin 0.5 (0.2-1.3) mg/dL AST 28 (17-59) U/L ALT 33 (21-72) U/L Alkaline Phosphatase 46 (38-126) U/L Total Creatine Kinase (55-170) U/L CK-MB (CK-2) (0.0-2.4) ng/mL CK-MB (CK-2) Rel Index Troponin I (0.000-0.034) ng/mL NT-Pro-B Natriuret Pep pg/mL Total Protein 4.6 L (6.3-8.2) g/dL Albumin 2.2 L (3.5-5.0) g/dL Triglycerides (<150) mg/dL Cholesterol (<200) mg/dL LDL Cholesterol, Calc (0-99) mg/dL HDL Cholesterol (40-60) mg/dL Amylase <30 L (30-110) U/L Lipase 368 H (23-300) U/L Urine Color Urine Appearance (Clear) Urine pH (5.0-8.0) Ur Specific [place] (1.001-1.035) Urine Protein (Negative) Urine Glucose (UA) (Negative) Urine Ketones (Negative) Urine Blood (Negative) Urine Nitrate (Negative) Urine Bilirubin (Negative) Urine Urobilinogen (<2.0) mg/dL Ur Leukocyte Esterase (Negative) Urine WBC (0-5) /hpf Amorphous Sediment (None) /hpf Hyaline Casts (0-2) /lpf Granular Casts (0) /lpf Urine Mucus (None) /hpf Hepatitis A IgM Ab Hep Bs Antigen Hep B Core IgM Ab Hep C IgG Ab (Negative) 05/02/16 05/02/16 05/02/16 Range/Units 12:01 14:30 14:30 WBC (3.8-10.6) k/uL RBC (4.30-5.90) m/uL Hgb (13.0-17.5) gm/dL Hct (39.0-53.0) % MCV (80.0-100.0) fL MCH (25.0-35.0) pg MCHC (31.0-37.0) g/dL RDW (11.5-15.5) % Plt Count (150-450) k/uL Neutrophils % % Neutrophils % (Manual) % Band Neutrophils % % Lymphocytes % % Lymphocytes % (Manual) % Monocytes % % Monocytes % (Manual) % Eosinophils % % Eosinophils % (Manual) % Basophils % % Metamyelocytes % % Myelocytes % % Neutrophils # (1.3-7.7) k/uL Neutrophils # (Manual) (1.3-7.7) k/uL Lymphocytes # (1.0-4.8) k/uL Lymphocytes # (Manual) (1.0-4.8) k/uL Monocytes # (0-1.0) k/uL Monocytes # (Manual) (0-1.0) k/uL Eosinophils # (0-0.7) k/uL Eosinophils # (Manual) (0-0.7) k/uL Basophils # (0-0.2) k/uL Nucleated RBCs (0-0) /100 WBC Manual Slide Review Toxic Granulation Toxic Vacuolation Large Platelets Polychromasia Hypochromasia Poikilocytosis (manual Basophilic Stippling Anisocytosis Anisocytosis (manual) Macrocytosis PT 12.5 H (9.0-12.0) sec INR 1.3 (<1.1) APTT 27.8 (22.0-30.0) sec D-Dimer (<0.60) mg/L FEU Sample Site ABG pH (7.35-7.45) ABG pCO2 (35-45) mmHg ABG pO2 (83-108) mmHg ABG HCO3 (21-25) mmol/L ABG Total CO2 (19-24) mmol/L ABG O2 Saturation (94-97) % ABG Base Excess mmol/L FiO2 % Sodium (137-145) mmol/L Potassium (3.5-5.1) mmol/L Chloride (98-107) mmol/L Carbon Dioxide (22-30) mmol/L Anion Gap mmol/L BUN (9-20) mg/dL Creatinine (0.66-1.25) mg/dL Est GFR (MDRD) Af Amer (>60 ml/min/1.73 sqM) Est GFR (MDRD) Non-Af (>60 ml/min/1.73 sqM) Glucose (74-99) mg/dL POC Glucose (mg/dL) 173 H (75-99) mg/dL POC Glu Hydro Station Operator ID Tremayne Sim [address] Glu mg/dL mg/dL Hemoglobin A1c (4.2-6.1) % Plasma Lactic Acid Clay (0.7-2.0) mmol/L Calcium (8.4-10.2) mg/dL Phosphorus (2.5-4.5) mg/dL Magnesium (1.6-2.3) mg/dL Total Bilirubin (0.2-1.3) mg/dL AST (17-59) U/L ALT (21-72) U/L Alkaline Phosphatase (38-126) U/L Total Creatine Kinase (55-170) U/L CK-MB (CK-2) (0.0-2.4) ng/mL CK-MB (CK-2) Rel Index Troponin I (0.000-0.034) ng/mL NT-Pro-B Natriuret Pep pg/mL Total Protein (6.3-8.2) g/dL Albumin (3.5-5.0) g/dL Triglycerides (<150) mg/dL Cholesterol (<200) mg/dL LDL Cholesterol, Calc (0-99) mg/dL HDL Cholesterol (40-60) mg/dL Amylase (30-110) U/L Lipase (23-300) U/L Urine Color Urine Appearance (Clear) Urine pH (5.0-8.0) Ur Specific [place] (1.001-1.035) Urine Protein (Negative) Urine Glucose (UA) (Negative) Urine Ketones (Negative) Urine Blood (Negative) Urine Nitrate (Negative) Urine Bilirubin (Negative) Urine Urobilinogen (<2.0) mg/dL Ur Leukocyte Esterase (Negative) Urine WBC (0-5) /hpf Amorphous Sediment (None) /hpf Hyaline Casts (0-2) /lpf Granular Casts (0) /lpf Urine Mucus (None) /hpf Hepatitis A IgM Ab Hep Bs Antigen Hep B Core IgM Ab Hep C IgG Ab (Negative) 05/02/16 05/02/16 05/02/16 Range/Units 16:56 19:15 20:35 WBC (3.8-10.6) k/uL RBC (4.30-5.90) m/uL Hgb (13.0-17.5) gm/dL Hct (39.0-53.0) % MCV (80.0-100.0) fL MCH (25.0-35.0) pg MCHC (31.0-37.0) g/dL RDW (11.5-15.5) % Plt Count (150-450) k/uL Neutrophils % % Neutrophils % (Manual) % Band Neutrophils % % Lymphocytes % % Lymphocytes % (Manual) % Monocytes % % Monocytes % (Manual) % Eosinophils % % Eosinophils % (Manual) % Basophils % % Metamyelocytes % % Myelocytes % % Neutrophils # (1.3-7.7) k/uL Neutrophils # (Manual) (1.3-7.7) k/uL Lymphocytes # (1.0-4.8) k/uL Lymphocytes # (Manual) (1.0-4.8) k/uL Monocytes # (0-1.0) k/uL Monocytes # (Manual) (0-1.0) k/uL Eosinophils # (0-0.7) k/uL Eosinophils # (Manual) (0-0.7) k/uL Basophils # (0-0.2) k/uL Nucleated RBCs (0-0) /100 WBC Manual Slide Review Toxic Granulation Toxic Vacuolation Large Platelets Polychromasia Hypochromasia Poikilocytosis (manual Basophilic Stippling Anisocytosis Anisocytosis (manual) Macrocytosis PT (9.0-12.0) sec INR (<1.1) APTT 22.3 (22.0-30.0) sec D-Dimer (<0.60) mg/L FEU Sample Site ABG pH (7.35-7.45) ABG pCO2 (35-45) mmHg ABG pO2 (83-108) mmHg ABG HCO3 (21-25) mmol/L ABG Total CO2 (19-24) mmol/L ABG O2 Saturation (94-97) % ABG Base Excess mmol/L FiO2 % Sodium (137-145) mmol/L Potassium (3.5-5.1) mmol/L Chloride (98-107) mmol/L Carbon Dioxide (22-30) mmol/L Anion Gap mmol/L BUN (9-20) mg/dL Creatinine (0.66-1.25) mg/dL Est GFR (MDRD) Af Amer (>60 ml/min/1.73 sqM) Est GFR (MDRD) Non-Af (>60 ml/min/1.73 sqM) Glucose (74-99) mg/dL POC Glucose (mg/dL) 293 H 252 H (75-99) mg/dL POC Glu Hydro Station Operator ID Tremayne Sim JesseEren trent [address] Glu mg/dL mg/dL Hemoglobin A1c (4.2-6.1) % Plasma Lactic Acid Clay (0.7-2.0) mmol/L Calcium (8.4-10.2) mg/dL Phosphorus (2.5-4.5) mg/dL Magnesium (1.6-2.3) mg/dL Total Bilirubin (0.2-1.3) mg/dL AST (17-59) U/L ALT (21-72) U/L Alkaline Phosphatase (38-126) U/L Total Creatine Kinase (55-170) U/L CK-MB (CK-2) (0.0-2.4) ng/mL CK-MB (CK-2) Rel Index Troponin I (0.000-0.034) ng/mL NT-Pro-B Natriuret Pep pg/mL Total Protein (6.3-8.2) g/dL Albumin (3.5-5.0) g/dL Triglycerides (<150) mg/dL Cholesterol (<200) mg/dL LDL Cholesterol, Calc (0-99) mg/dL HDL Cholesterol (40-60) mg/dL Amylase (30-110) U/L Lipase (23-300) U/L Urine Color Urine Appearance (Clear) Urine pH (5.0-8.0) Ur Specific [place] (1.001-1.035) Urine Protein (Negative) Urine Glucose (UA) (Negative) Urine Ketones (Negative) Urine Blood (Negative) Urine Nitrate (Negative) Urine Bilirubin (Negative) Urine Urobilinogen (<2.0) mg/dL Ur Leukocyte Esterase (Negative) Urine WBC (0-5) /hpf Amorphous Sediment (None) /hpf Hyaline Casts (0-2) /lpf Granular Casts (0) /lpf Urine Mucus (None) /hpf Hepatitis A IgM Ab Hep Bs Antigen Hep B Core IgM Ab Hep C IgG Ab (Negative) 05/02/16 05/03/16 05/03/16 Range/Units 20:43 00:18 02:43 WBC (3.8-10.6) k/uL RBC (4.30-5.90) m/uL Hgb (13.0-17.5) gm/dL Hct (39.0-53.0) % MCV (80.0-100.0) fL MCH (25.0-35.0) pg MCHC (31.0-37.0) g/dL RDW (11.5-15.5) % Plt Count (150-450) k/uL Neutrophils % % Neutrophils % (Manual) % Band Neutrophils % % Lymphocytes % % Lymphocytes % (Manual) % Monocytes % % Monocytes % (Manual) % Eosinophils % % Eosinophils % (Manual) % Basophils % % Metamyelocytes % % Myelocytes % % Neutrophils # (1.3-7.7) k/uL Neutrophils # (Manual) (1.3-7.7) k/uL Lymphocytes # (1.0-4.8) k/uL Lymphocytes # (Manual) (1.0-4.8) k/uL Monocytes # (0-1.0) k/uL Monocytes # (Manual) (0-1.0) k/uL Eosinophils # (0-0.7) k/uL Eosinophils # (Manual) (0-0.7) k/uL Basophils # (0-0.2) k/uL Nucleated RBCs (0-0) /100 WBC Manual Slide Review Toxic Granulation Toxic Vacuolation Large Platelets Polychromasia Hypochromasia Poikilocytosis (manual Basophilic Stippling Anisocytosis Anisocytosis (manual) Macrocytosis PT (9.0-12.0) sec INR (<1.1) APTT (22.0-30.0) sec D-Dimer (<0.60) mg/L FEU Sample Site RRAD ABG pH 7.27 L (7.35-7.45) ABG pCO2 49 H (35-45) mmHg ABG pO2 45 L* (83-108) mmHg ABG HCO3 22 (21-25) mmol/L ABG Total CO2 23 (19-24) mmol/L ABG O2 Saturation 75.0 L (94-97) % ABG Base Excess -4.1 mmol/L FiO2 90 % Sodium 143 (137-145) mmol/L Potassium 3.7 (3.5-5.1) mmol/L Chloride 106 (98-107) mmol/L Carbon Dioxide 26 (22-30) mmol/L Anion Gap 11 mmol/L BUN 72 H (9-20) mg/dL Creatinine 2.20 H (0.66-1.25) mg/dL Est GFR (MDRD) Af Amer 38 (>60 ml/min/1.73 sqM) Est GFR (MDRD) Non-Af 31 (>60 ml/min/1.73 sqM) Glucose 168 H (74-99) mg/dL POC Glucose (mg/dL) 194 H (75-99) mg/dL POC Glu Hydro Station Operator ID Eren Lopez [address] Glu mg/dL mg/dL Hemoglobin A1c (4.2-6.1) % Plasma Lactic Acid Clay (0.7-2.0) mmol/L Calcium 8.6 (8.4-10.2) mg/dL Phosphorus (2.5-4.5) mg/dL Magnesium (1.6-2.3) mg/dL Total Bilirubin 0.6 (0.2-1.3) mg/dL AST 31 (17-59) U/L ALT 29 (21-72) U/L Alkaline Phosphatase 37 L (38-126) U/L Total Creatine Kinase (55-170) U/L CK-MB (CK-2) (0.0-2.4) ng/mL CK-MB (CK-2) Rel Index Troponin I (0.000-0.034) ng/mL NT-Pro-B Natriuret Pep pg/mL Total Protein 5.0 L (6.3-8.2) g/dL Albumin 2.3 L (3.5-5.0) g/dL Triglycerides (<150) mg/dL Cholesterol (<200) mg/dL LDL Cholesterol, Calc (0-99) mg/dL HDL Cholesterol (40-60) mg/dL Amylase <30 L (30-110) U/L Lipase 317 H (23-300) U/L Urine Color Urine Appearance (Clear) Urine pH (5.0-8.0) Ur Specific [place] (1.001-1.035) Urine Protein (Negative) Urine Glucose (UA) (Negative) Urine Ketones (Negative) Urine Blood (Negative) Urine Nitrate (Negative) Urine Bilirubin (Negative) Urine Urobilinogen (<2.0) mg/dL Ur Leukocyte Esterase (Negative) Urine WBC (0-5) /hpf Amorphous Sediment (None) /hpf Hyaline Casts (0-2) /lpf Granular Casts (0) /lpf Urine Mucus (None) /hpf Hepatitis A IgM Ab Hep Bs Antigen Hep B Core IgM Ab Hep C IgG Ab (Negative) 12/18/16 12/18/16 12/18/16 Range/Units 02:43 02:43 05:55 WBC 5.1 (3.8-10.6) k/uL RBC 2.86 L (4.30-5.90) m/uL Hgb 9.4 L (13.0-17.5) gm/dL Hct 32.0 L (39.0-53.0) % MCV 112.0 H (80.0-100.0) fL MCH 32.9 (25.0-35.0) pg MCHC 29.4 L (31.0-37.0) g/dL RDW 14.8 (11.5-15.5) % Plt Count 165 (150-450) k/uL Neutrophils % % Neutrophils % (Manual) 46.0 % Band Neutrophils % 30.5 % Lymphocytes % % Lymphocytes % (Manual) 16.5 % Monocytes % % Monocytes % (Manual) 6.0 % Eosinophils % % Eosinophils % (Manual) % Basophils % % Metamyelocytes % 1.0 % Myelocytes % % Neutrophils # (1.3-7.7) k/uL Neutrophils # (Manual) 3.9 (1.3-7.7) k/uL Lymphocytes # (1.0-4.8) k/uL Lymphocytes # (Manual) 0.8 L (1.0-4.8) k/uL Monocytes # (0-1.0) k/uL Monocytes # (Manual) 0.3 (0-1.0) k/uL Eosinophils # (0-0.7) k/uL Eosinophils # (Manual) (0-0.7) k/uL Basophils # (0-0.2) k/uL Nucleated RBCs 1 H (0-0) /100 WBC Manual Slide Review Toxic Granulation Toxic Vacuolation Large Platelets Present Polychromasia Present Hypochromasia Marked Poikilocytosis (manual Present Basophilic Stippling Anisocytosis Anisocytosis (manual) Present Macrocytosis Marked PT 16.8 H (9.0-12.0) sec INR 1.7 (<1.1) APTT 53.5 H (22.0-30.0) sec D-Dimer (<0.60) mg/L FEU Sample Site ABG pH (7.35-7.45) ABG pCO2 (35-45) mmHg ABG pO2 (83-108) mmHg ABG HCO3 (21-25) mmol/L ABG Total CO2 (19-24) mmol/L ABG O2 Saturation (94-97) % ABG Base Excess mmol/L FiO2 % Sodium (137-145) mmol/L Potassium (3.5-5.1) mmol/L Chloride (98-107) mmol/L Carbon Dioxide (22-30) mmol/L Anion Gap mmol/L BUN (9-20) mg/dL Creatinine (0.66-1.25) mg/dL Est GFR (MDRD) Af Amer (>60 ml/min/1.73 sqM) Est GFR (MDRD) Non-Af (>60 ml/min/1.73 sqM) Glucose (74-99) mg/dL POC Glucose (mg/dL) (75-99) mg/dL POC Glu Hydro Station Operator ID Estimated Ave Glu mg/dL mg/dL Hemoglobin A1c (4.2-6.1) % Plasma Lactic Acid Clay (0.7-2.0) mmol/L Calcium (8.4-10.2) mg/dL Phosphorus (2.5-4.5) mg/dL Magnesium (1.6-2.3) mg/dL Total Bilirubin (0.2-1.3) mg/dL AST (17-59) U/L ALT (21-72) U/L Alkaline Phosphatase (38-126) U/L Total Creatine Kinase (55-170) U/L CK-MB (CK-2) (0.0-2.4) ng/mL CK-MB (CK-2) Rel Index Troponin I (0.000-0.034) ng/mL NT-Pro-B Natriuret Pep 7950 pg/mL Total Protein (6.3-8.2) g/dL Albumin (3.5-5.0) g/dL Triglycerides (<150) mg/dL Cholesterol (<200) mg/dL LDL Cholesterol, Calc (0-99) mg/dL HDL Cholesterol (40-60) mg/dL Amylase (30-110) U/L Lipase (23-300) U/L Urine Color Urine Appearance (Clear) Urine pH (5.0-8.0) Ur Specific [place] (1.001-1.035) Urine Protein (Negative) Urine Glucose (UA) (Negative) Urine Ketones (Negative) Urine Blood (Negative) Urine Nitrate (Negative) Urine Bilirubin (Negative) Urine Urobilinogen (<2.0) mg/dL Ur Leukocyte Esterase (Negative) Urine WBC (0-5) /hpf Amorphous Sediment (None) /hpf Hyaline Casts (0-2) /lpf Granular Casts (0) /lpf Urine Mucus (None) /hpf Hepatitis A IgM Ab Hep Bs Antigen Hep B Core IgM Ab Hep C IgG Ab (Negative) 05/03/16 05/03/16 05/03/16 Range/Units 06:29 11:44 13:00 WBC (3.8-10.6) k/uL RBC (4.30-5.90) m/uL Hgb (13.0-17.5) gm/dL Hct (39.0-53.0) % MCV (80.0-100.0) fL MCH (25.0-35.0) pg MCHC (31.0-37.0) g/dL RDW (11.5-15.5) % Plt Count (150-450) k/uL Neutrophils % % Neutrophils % (Manual) % Band Neutrophils % % Lymphocytes % % Lymphocytes % (Manual) % Monocytes % % Monocytes % (Manual) % Eosinophils % % Eosinophils % (Manual) % Basophils % % Metamyelocytes % % Myelocytes % % Neutrophils # (1.3-7.7) k/uL Neutrophils # (Manual) (1.3-7.7) k/uL Lymphocytes # (1.0-4.8) k/uL Lymphocytes # (Manual) (1.0-4.8) k/uL Monocytes # (0-1.0) k/uL Monocytes # (Manual) (0-1.0) k/uL Eosinophils # (0-0.7) k/uL Eosinophils # (Manual) (0-0.7) k/uL Basophils # (0-0.2) k/uL Nucleated RBCs (0-0) /100 WBC Manual Slide Review Toxic Granulation Toxic Vacuolation Large Platelets Polychromasia Hypochromasia Poikilocytosis (manual Basophilic Stippling Anisocytosis Anisocytosis (manual) Macrocytosis PT (9.0-12.0) sec INR (<1.1) APTT (22.0-30.0) sec D-Dimer (<0.60) mg/L FEU Sample Site RRAD ABG pH 7.42 (7.35-7.45) ABG pCO2 34 L (35-45) mmHg ABG pO2 68 L (83-108) mmHg ABG HCO3 22 (21-25) mmol/L ABG Total CO2 23 (19-24) mmol/L ABG O2 Saturation 93.9 L (94-97) % ABG Base Excess -2.1 mmol/L FiO2 70 % Sodium (137-145) mmol/L Potassium (3.5-5.1) mmol/L Chloride (98-107) mmol/L Carbon Dioxide (22-30) mmol/L Anion Gap mmol/L BUN (9-20) mg/dL Creatinine (0.66-1.25) mg/dL Est GFR (MDRD) Af Amer (>60 ml/min/1.73 sqM) Est GFR (MDRD) Non-Af (>60 ml/min/1.73 sqM) Glucose (74-99) mg/dL POC Glucose (mg/dL) 148 H 165 H (75-99) mg/dL POC Glu Hydro Station Operator ID Eren Lopez Donna [address] Glu mg/dL mg/dL Hemoglobin A1c (4.2-6.1) % Plasma Lactic Acid Clay (0.7-2.0) mmol/L Calcium (8.4-10.2) mg/dL Phosphorus (2.5-4.5) mg/dL Magnesium (1.6-2.3) mg/dL Total Bilirubin (0.2-1.3) mg/dL AST (17-59) U/L ALT (21-72) U/L Alkaline Phosphatase (38-126) U/L Total Creatine Kinase (55-170) U/L CK-MB (CK-2) (0.0-2.4) ng/mL CK-MB (CK-2) Rel Index Troponin I (0.000-0.034) ng/mL NT-Pro-B Natriuret Pep pg/mL Total Protein (6.3-8.2) g/dL Albumin (3.5-5.0) g/dL Triglycerides (<150) mg/dL Cholesterol (<200) mg/dL LDL Cholesterol, Calc (0-99) mg/dL HDL Cholesterol (40-60) mg/dL Amylase (30-110) U/L Lipase (23-300) U/L Urine Color Urine Appearance (Clear) Urine pH (5.0-8.0) Ur Specific [place] (1.001-1.035) Urine Protein (Negative) Urine Glucose (UA) (Negative) Urine Ketones (Negative) Urine Blood (Negative) Urine Nitrate (Negative) Urine Bilirubin (Negative) Urine Urobilinogen (<2.0) mg/dL Ur Leukocyte Esterase (Negative) Urine WBC (0-5) /hpf Amorphous Sediment (None) /hpf Hyaline Casts (0-2) /lpf Granular Casts (0) /lpf Urine Mucus (None) /hpf Hepatitis A IgM Ab Hep Bs Antigen Hep B Core IgM Ab Hep C IgG Ab (Negative) 05/03/16 05/03/16 05/04/16 Range/Units 17:01 23:53 05:52 WBC (3.8-10.6) k/uL RBC (4.30-5.90) m/uL Hgb (13.0-17.5) gm/dL Hct (39.0-53.0) % MCV (80.0-100.0) fL MCH (25.0-35.0) pg MCHC (31.0-37.0) g/dL RDW (11.5-15.5) % Plt Count (150-450) k/uL Neutrophils % % Neutrophils % (Manual) % Band Neutrophils % % Lymphocytes % % Lymphocytes % (Manual) % Monocytes % % Monocytes % (Manual) % Eosinophils % % Eosinophils % (Manual) % Basophils % % Metamyelocytes % % Myelocytes % % Neutrophils # (1.3-7.7) k/uL Neutrophils # (Manual) (1.3-7.7) k/uL Lymphocytes # (1.0-4.8) k/uL Lymphocytes # (Manual) (1.0-4.8) k/uL Monocytes # (0-1.0) k/uL Monocytes # (Manual) (0-1.0) k/uL Eosinophils # (0-0.7) k/uL Eosinophils # (Manual) (0-0.7) k/uL Basophils # (0-0.2) k/uL Nucleated RBCs (0-0) /100 WBC Manual Slide Review Toxic Granulation Toxic Vacuolation Large Platelets Polychromasia Hypochromasia Poikilocytosis (manual Basophilic Stippling Anisocytosis Anisocytosis (manual) Macrocytosis PT 64.1 H (9.0-12.0) sec INR 6.3 H* (<1.1) APTT 89.5 H (22.0-30.0) sec D-Dimer (<0.60) mg/L FEU Sample Site ABG pH (7.35-7.45) ABG pCO2 (35-45) mmHg ABG pO2 (83-108) mmHg ABG HCO3 (21-25) mmol/L ABG Total CO2 (19-24) mmol/L ABG O2 Saturation (94-97) % ABG Base Excess mmol/L FiO2 % Sodium (137-145) mmol/L Potassium (3.5-5.1) mmol/L Chloride (98-107) mmol/L Carbon Dioxide (22-30) mmol/L Anion Gap mmol/L BUN (9-20) mg/dL Creatinine (0.66-1.25) mg/dL Est GFR (MDRD) Af Amer (>60 ml/min/1.73 sqM) Est GFR (MDRD) Non-Af (>60 ml/min/1.73 sqM) Glucose (74-99) mg/dL POC Glucose (mg/dL) 136 H 176 H (75-99) mg/dL POC Glu Hydro Station Operator ID Nicol Trimble [address] Glu mg/dL mg/dL Hemoglobin A1c (4.2-6.1) % Plasma Lactic Acid Clay (0.7-2.0) mmol/L Calcium (8.4-10.2) mg/dL Phosphorus (2.5-4.5) mg/dL Magnesium (1.6-2.3) mg/dL Total Bilirubin (0.2-1.3) mg/dL AST (17-59) U/L ALT (21-72) U/L Alkaline Phosphatase (38-126) U/L Total Creatine Kinase (55-170) U/L CK-MB (CK-2) (0.0-2.4) ng/mL CK-MB (CK-2) Rel Index Troponin I (0.000-0.034) ng/mL NT-Pro-B Natriuret Pep pg/mL Total Protein (6.3-8.2) g/dL Albumin (3.5-5.0) g/dL Triglycerides (<150) mg/dL Cholesterol (<200) mg/dL LDL Cholesterol, Calc (0-99) mg/dL HDL Cholesterol (40-60) mg/dL Amylase (30-110) U/L Lipase (23-300) U/L Urine Color Urine Appearance (Clear) Urine pH (5.0-8.0) Ur Specific [place] (1.001-1.035) Urine Protein (Negative) Urine Glucose (UA) (Negative) Urine Ketones (Negative) Urine Blood (Negative) Urine Nitrate (Negative) Urine Bilirubin (Negative) Urine Urobilinogen (<2.0) mg/dL Ur Leukocyte Esterase (Negative) Urine WBC (0-5) /hpf Amorphous Sediment (None) /hpf Hyaline Casts (0-2) /lpf Granular Casts (0) /lpf Urine Mucus (None) /hpf Hepatitis A IgM Ab Hep Bs Antigen Hep B Core IgM Ab Hep C IgG Ab (Negative) 05/04/16 05/04/16 05/04/16 Range/Units 05:52 05:52 06:41 WBC (3.8-10.6) k/uL RBC (4.30-5.90) m/uL Hgb (13.0-17.5) gm/dL Hct (39.0-53.0) % MCV (80.0-100.0) fL MCH (25.0-35.0) pg MCHC (31.0-37.0) g/dL RDW (11.5-15.5) % Plt Count (150-450) k/uL Neutrophils % % Neutrophils % (Manual) % Band Neutrophils % % Lymphocytes % % Lymphocytes % (Manual) % Monocytes % % Monocytes % (Manual) % Eosinophils % % Eosinophils % (Manual) % Basophils % % Metamyelocytes % % Myelocytes % % Neutrophils # (1.3-7.7) k/uL Neutrophils # (Manual) (1.3-7.7) k/uL Lymphocytes # (1.0-4.8) k/uL Lymphocytes # (Manual) (1.0-4.8) k/uL Monocytes # (0-1.0) k/uL Monocytes # (Manual) (0-1.0) k/uL Eosinophils # (0-0.7) k/uL Eosinophils # (Manual) (0-0.7) k/uL Basophils # (0-0.2) k/uL Nucleated RBCs (0-0) /100 WBC Manual Slide Review Toxic Granulation Toxic Vacuolation Large Platelets Polychromasia Hypochromasia Poikilocytosis (manual Basophilic Stippling Anisocytosis Anisocytosis (manual) Macrocytosis PT (9.0-12.0) sec INR (<1.1) APTT (22.0-30.0) sec D-Dimer (<0.60) mg/L FEU Sample Site ABG pH (7.35-7.45) ABG pCO2 (35-45) mmHg ABG pO2 (83-108) mmHg ABG HCO3 (21-25) mmol/L ABG Total CO2 (19-24) mmol/L ABG O2 Saturation (94-97) % ABG Base Excess mmol/L FiO2 % Sodium 146 H (137-145) mmol/L Potassium 2.9 L* (3.5-5.1) mmol/L Chloride 108 H (98-107) mmol/L Carbon Dioxide 24 (22-30) mmol/L Anion Gap 14 mmol/L BUN 70 H (9-20) mg/dL Creatinine 1.97 H (0.66-1.25) mg/dL Est GFR (MDRD) Af Amer 43 (>60 ml/min/1.73 sqM) Est GFR (MDRD) Non-Af 35 (>60 ml/min/1.73 sqM) Glucose 133 H (74-99) mg/dL POC Glucose (mg/dL) 164 H (75-99) mg/dL POC Glu Hydro Station Operator ID Eren Lopez [address] Glu mg/dL mg/dL Hemoglobin A1c (4.2-6.1) % Plasma Lactic Acid Clay (0.7-2.0) mmol/L Calcium 8.5 (8.4-10.2) mg/dL Phosphorus (2.5-4.5) mg/dL Magnesium 2.3 (1.6-2.3) mg/dL Total Bilirubin (0.2-1.3) mg/dL AST (17-59) U/L ALT (21-72) U/L Alkaline Phosphatase (38-126) U/L Total Creatine Kinase (55-170) U/L CK-MB (CK-2) (0.0-2.4) ng/mL CK-MB (CK-2) Rel Index Troponin I (0.000-0.034) ng/mL NT-Pro-B Natriuret Pep pg/mL Total Protein (6.3-8.2) g/dL Albumin (3.5-5.0) g/dL Triglycerides (<150) mg/dL Cholesterol (<200) mg/dL LDL Cholesterol, Calc (0-99) mg/dL HDL Cholesterol (40-60) mg/dL Amylase (30-110) U/L Lipase (23-300) U/L Urine Color Urine Appearance (Clear) Urine pH (5.0-8.0) Ur Specific [place] (1.001-1.035) Urine Protein (Negative) Urine Glucose (UA) (Negative) Urine Ketones (Negative) Urine Blood (Negative) Urine Nitrate (Negative) Urine Bilirubin (Negative) Urine Urobilinogen (<2.0) mg/dL Ur Leukocyte Esterase (Negative) Urine WBC (0-5) /hpf Amorphous Sediment (None) /hpf Hyaline Casts (0-2) /lpf Granular Casts (0) /lpf Urine Mucus (None) /hpf Hepatitis A IgM Ab Hep Bs Antigen Hep B Core IgM Ab Hep C IgG Ab (Negative) 05/04/16 05/04/16 05/04/16 Range/Units 11:51 14:47 16:53 WBC (3.8-10.6) k/uL RBC (4.30-5.90) m/uL Hgb (13.0-17.5) gm/dL Hct (39.0-53.0) % MCV (80.0-100.0) fL MCH (25.0-35.0) pg MCHC (31.0-37.0) g/dL RDW (11.5-15.5) % Plt Count (150-450) k/uL Neutrophils % % Neutrophils % (Manual) % Band Neutrophils % % Lymphocytes % % Lymphocytes % (Manual) % Monocytes % % Monocytes % (Manual) % Eosinophils % % Eosinophils % (Manual) % Basophils % % Metamyelocytes % % Myelocytes % % Neutrophils # (1.3-7.7) k/uL Neutrophils # (Manual) (1.3-7.7) k/uL Lymphocytes # (1.0-4.8) k/uL Lymphocytes # (Manual) (1.0-4.8) k/uL Monocytes # (0-1.0) k/uL Monocytes # (Manual) (0-1.0) k/uL Eosinophils # (0-0.7) k/uL Eosinophils # (Manual) (0-0.7) k/uL Basophils # (0-0.2) k/uL Nucleated RBCs (0-0) /100 WBC Manual Slide Review Toxic Granulation Toxic Vacuolation Large Platelets Polychromasia Hypochromasia Poikilocytosis (manual Basophilic Stippling Anisocytosis Anisocytosis (manual) Macrocytosis PT (9.0-12.0) sec INR (<1.1) APTT (22.0-30.0) sec D-Dimer (<0.60) mg/L FEU Sample Site ABG pH (7.35-7.45) ABG pCO2 (35-45) mmHg ABG pO2 (83-108) mmHg ABG HCO3 (21-25) mmol/L ABG Total CO2 (19-24) mmol/L ABG O2 Saturation (94-97) % ABG Base Excess mmol/L FiO2 % Sodium 145 (137-145) mmol/L Potassium 3.4 L (3.5-5.1) mmol/L Chloride 107 (98-107) mmol/L Carbon Dioxide 24 (22-30) mmol/L Anion Gap 14 mmol/L BUN 67 H (9-20) mg/dL Creatinine 1.80 H (0.66-1.25) mg/dL Est GFR (MDRD) Af Amer 47 (>60 ml/min/1.73 sqM) Est GFR (MDRD) Non-Af 39 (>60 ml/min/1.73 sqM) Glucose 116 H (74-99) mg/dL POC Glucose (mg/dL) 111 H 136 H (75-99) mg/dL POC Glu Hydro Station Operator Shivani Shine Sarah [address] Glu mg/dL mg/dL Hemoglobin A1c (4.2-6.1) % Plasma Lactic Acid Clay (0.7-2.0) mmol/L Calcium 7.9 L (8.4-10.2) mg/dL Phosphorus (2.5-4.5) mg/dL Magnesium (1.6-2.3) mg/dL Total Bilirubin (0.2-1.3) mg/dL AST (17-59) U/L ALT (21-72) U/L Alkaline Phosphatase (38-126) U/L Total Creatine Kinase (55-170) U/L CK-MB (CK-2) (0.0-2.4) ng/mL CK-MB (CK-2) Rel Index Troponin I (0.000-0.034) ng/mL NT-Pro-B Natriuret Pep pg/mL Total Protein (6.3-8.2) g/dL Albumin (3.5-5.0) g/dL Triglycerides (<150) mg/dL Cholesterol (<200) mg/dL LDL Cholesterol, Calc (0-99) mg/dL HDL Cholesterol (40-60) mg/dL Amylase (30-110) U/L Lipase (23-300) U/L Urine Color Urine Appearance (Clear) Urine pH (5.0-8.0) Ur Specific [place] (1.001-1.035) Urine Protein (Negative) Urine Glucose (UA) (Negative) Urine Ketones (Negative) Urine Blood (Negative) Urine Nitrate (Negative) Urine Bilirubin (Negative) Urine Urobilinogen (<2.0) mg/dL Ur Leukocyte Esterase (Negative) Urine WBC (0-5) /hpf Amorphous Sediment (None) /hpf Hyaline Casts (0-2) /lpf Granular Casts (0) /lpf Urine Mucus (None) /hpf Hepatitis A IgM Ab Hep Bs Antigen Hep B Core IgM Ab Hep C IgG Ab (Negative) 05/04/16 05/04/16 05/04/16 Range/Units 18:52 20:49 21:08 WBC (3.8-10.6) k/uL RBC (4.30-5.90) m/uL Hgb (13.0-17.5) gm/dL Hct (39.0-53.0) % MCV (80.0-100.0) fL MCH (25.0-35.0) pg MCHC (31.0-37.0) g/dL RDW (11.5-15.5) % Plt Count (150-450) k/uL Neutrophils % % Neutrophils % (Manual) % Band Neutrophils % % Lymphocytes % % Lymphocytes % (Manual) % Monocytes % % Monocytes % (Manual) % Eosinophils % % Eosinophils % (Manual) % Basophils % % Metamyelocytes % % Myelocytes % % Neutrophils # (1.3-7.7) k/uL Neutrophils # (Manual) (1.3-7.7) k/uL Lymphocytes # (1.0-4.8) k/uL Lymphocytes # (Manual) (1.0-4.8) k/uL Monocytes # (0-1.0) k/uL Monocytes # (Manual) (0-1.0) k/uL Eosinophils # (0-0.7) k/uL Eosinophils # (Manual) (0-0.7) k/uL Basophils # (0-0.2) k/uL Nucleated RBCs (0-0) /100 WBC Manual Slide Review Toxic Granulation Toxic Vacuolation Large Platelets Polychromasia Hypochromasia Poikilocytosis (manual Basophilic Stippling Anisocytosis Anisocytosis (manual) Macrocytosis PT (9.0-12.0) sec INR (<1.1) APTT (22.0-30.0) sec D-Dimer (<0.60) mg/L FEU Sample Site ABG pH (7.35-7.45) ABG pCO2 (35-45) mmHg ABG pO2 (83-108) mmHg ABG HCO3 (21-25) mmol/L ABG Total CO2 (19-24) mmol/L ABG O2 Saturation (94-97) % ABG Base Excess mmol/L FiO2 % Sodium 144 (137-145) mmol/L Potassium 4.0 (3.5-5.1) mmol/L Chloride 109 H (98-107) mmol/L Carbon Dioxide 24 (22-30) mmol/L Anion Gap 11 mmol/L BUN 71 H (9-20) mg/dL Creatinine 1.85 H (0.66-1.25) mg/dL Est GFR (MDRD) Af Amer 46 (>60 ml/min/1.73 sqM) Est GFR (MDRD) Non-Af 38 (>60 ml/min/1.73 sqM) Glucose 142 H (74-99) mg/dL POC Glucose (mg/dL) 150 H 135 H (75-99) mg/dL POC Glu Hydro Station Operator ID Lorene Keane Gloria [address] Glu mg/dL mg/dL Hemoglobin A1c (4.2-6.1) % Plasma Lactic Acid Clay (0.7-2.0) mmol/L Calcium 8.1 L (8.4-10.2) mg/dL Phosphorus 5.7 H (2.5-4.5) mg/dL Magnesium 2.1 (1.6-2.3) mg/dL Total Bilirubin (0.2-1.3) mg/dL AST (17-59) U/L ALT (21-72) U/L Alkaline Phosphatase (38-126) U/L Total Creatine Kinase (55-170) U/L CK-MB (CK-2) (0.0-2.4) ng/mL CK-MB (CK-2) Rel Index Troponin I (0.000-0.034) ng/mL NT-Pro-B Natriuret Pep pg/mL Total Protein (6.3-8.2) g/dL Albumin (3.5-5.0) g/dL Triglycerides (<150) mg/dL Cholesterol (<200) mg/dL LDL Cholesterol, Calc (0-99) mg/dL HDL Cholesterol (40-60) mg/dL Amylase (30-110) U/L Lipase (23-300) U/L Urine Color Urine Appearance (Clear) Urine pH (5.0-8.0) Ur Specific [place] (1.001-1.035) Urine Protein (Negative) Urine Glucose (UA) (Negative) Urine Ketones (Negative) Urine Blood (Negative) Urine Nitrate (Negative) Urine Bilirubin (Negative) Urine Urobilinogen (<2.0) mg/dL Ur Leukocyte Esterase (Negative) Urine WBC (0-5) /hpf Amorphous Sediment (None) /hpf Hyaline Casts (0-2) /lpf Granular Casts (0) /lpf Urine Mucus (None) /hpf Hepatitis A IgM Ab Hep Bs Antigen Hep B Core IgM Ab Hep C IgG Ab (Negative) 05/04/16 05/05/16 05/05/16 Range/Units 23:02 04:36 04:36 WBC (3.8-10.6) k/uL RBC (4.30-5.90) m/uL Hgb (13.0-17.5) gm/dL Hct (39.0-53.0) % MCV (80.0-100.0) fL MCH (25.0-35.0) pg MCHC (31.0-37.0) g/dL RDW (11.5-15.5) % Plt Count (150-450) k/uL Neutrophils % % Neutrophils % (Manual) % Band Neutrophils % % Lymphocytes % % Lymphocytes % (Manual) % Monocytes % % Monocytes % (Manual) % Eosinophils % % Eosinophils % (Manual) % Basophils % % Metamyelocytes % % Myelocytes % % Neutrophils # (1.3-7.7) k/uL Neutrophils # (Manual) (1.3-7.7) k/uL Lymphocytes # (1.0-4.8) k/uL Lymphocytes # (Manual) (1.0-4.8) k/uL Monocytes # (0-1.0) k/uL Monocytes # (Manual) (0-1.0) k/uL Eosinophils # (0-0.7) k/uL Eosinophils # (Manual) (0-0.7) k/uL Basophils # (0-0.2) k/uL Nucleated RBCs (0-0) /100 WBC Manual Slide Review Toxic Granulation Toxic Vacuolation Large Platelets Polychromasia Hypochromasia Poikilocytosis (manual Basophilic Stippling Anisocytosis Anisocytosis (manual) Macrocytosis PT 81.2 H (9.0-12.0) sec INR 7.8 H* (<1.1) APTT (22.0-30.0) sec D-Dimer (<0.60) mg/L FEU Sample Site ABG pH (7.35-7.45) ABG pCO2 (35-45) mmHg ABG pO2 (83-108) mmHg ABG HCO3 (21-25) mmol/L ABG Total CO2 (19-24) mmol/L ABG O2 Saturation (94-97) % ABG Base Excess mmol/L FiO2 % Sodium 145 (137-145) mmol/L Potassium 3.2 L (3.5-5.1) mmol/L Chloride 109 H (98-107) mmol/L Carbon Dioxide 25 (22-30) mmol/L Anion Gap 11 mmol/L BUN 71 H (9-20) mg/dL Creatinine 1.90 H (0.66-1.25) mg/dL Est GFR (MDRD) Af Amer 45 (>60 ml/min/1.73 sqM) Est GFR (MDRD) Non-Af 37 (>60 ml/min/1.73 sqM) Glucose 153 H (74-99) mg/dL POC Glucose (mg/dL) 132 H (75-99) mg/dL POC Glu Hydro Station Operator ID Carol Velazquez Estimated [address] Glu mg/dL mg/dL Hemoglobin A1c (4.2-6.1) % Plasma Lactic Acid Clay (0.7-2.0) mmol/L Calcium 8.2 L (8.4-10.2) mg/dL Phosphorus 5.9 H (2.5-4.5) mg/dL Magnesium 2.2 (1.6-2.3) mg/dL Total Bilirubin (0.2-1.3) mg/dL AST (17-59) U/L ALT (21-72) U/L Alkaline Phosphatase (38-126) U/L Total Creatine Kinase (55-170) U/L CK-MB (CK-2) (0.0-2.4) ng/mL CK-MB (CK-2) Rel Index Troponin I (0.000-0.034) ng/mL NT-Pro-B Natriuret Pep pg/mL Total Protein (6.3-8.2) g/dL Albumin (3.5-5.0) g/dL Triglycerides (<150) mg/dL Cholesterol (<200) mg/dL LDL Cholesterol, Calc (0-99) mg/dL HDL Cholesterol (40-60) mg/dL Amylase (30-110) U/L Lipase (23-300) U/L Urine Color Urine Appearance (Clear) Urine pH (5.0-8.0) Ur Specific [place] (1.001-1.035) Urine Protein (Negative) Urine Glucose (UA) (Negative) Urine Ketones (Negative) Urine Blood (Negative) Urine Nitrate (Negative) Urine Bilirubin (Negative) Urine Urobilinogen (<2.0) mg/dL Ur Leukocyte Esterase (Negative) Urine WBC (0-5) /hpf Amorphous Sediment (None) /hpf Hyaline Casts (0-2) /lpf Granular Casts (0) /lpf Urine Mucus (None) /hpf Hepatitis A IgM Ab Hep Bs Antigen Hep B Core IgM Ab Hep C IgG Ab (Negative) 05/05/16 05/05/16 05/05/16 Range/Units 04:36 04:36 06:50 WBC 8.0 (3.8-10.6) k/uL RBC 3.00 L (4.30-5.90) m/uL Hgb 10.2 L (13.0-17.5) gm/dL Hct 32.0 L (39.0-53.0) % MCV 106.6 H D (80.0-100.0) fL MCH 33.9 (25.0-35.0) pg MCHC 31.8 (31.0-37.0) g/dL RDW 14.9 (11.5-15.5) % Plt Count 239 (150-450) k/uL Neutrophils % 88 % Neutrophils % (Manual) % Band Neutrophils % % Lymphocytes % 8 % Lymphocytes % (Manual) % Monocytes % 3 % Monocytes % (Manual) % Eosinophils % 0 % Eosinophils % (Manual) % Basophils % 0 % Metamyelocytes % % Myelocytes % % Neutrophils # 7.0 (1.3-7.7) k/uL Neutrophils # (Manual) (1.3-7.7) k/uL Lymphocytes # 0.6 L (1.0-4.8) k/uL Lymphocytes # (Manual) (1.0-4.8) k/uL Monocytes # 0.2 (0-1.0) k/uL Monocytes # (Manual) (0-1.0) k/uL Eosinophils # 0.0 (0-0.7) k/uL Eosinophils # (Manual) (0-0.7) k/uL Basophils # 0.0 (0-0.2) k/uL Nucleated RBCs (0-0) /100 WBC Manual Slide Review Toxic Granulation Toxic Vacuolation Large Platelets Polychromasia Hypochromasia Slight Poikilocytosis (manual Basophilic Stippling Anisocytosis Anisocytosis (manual) Macrocytosis Moderate PT (9.0-12.0) sec INR (<1.1) APTT (22.0-30.0) sec D-Dimer (<0.60) mg/L FEU Sample Site ABG pH (7.35-7.45) ABG pCO2 (35-45) mmHg ABG pO2 (83-108) mmHg ABG HCO3 (21-25) mmol/L ABG Total CO2 (19-24) mmol/L ABG O2 Saturation (94-97) % ABG Base Excess mmol/L FiO2 % Sodium (137-145) mmol/L Potassium (3.5-5.1) mmol/L Chloride (98-107) mmol/L Carbon Dioxide (22-30) mmol/L Anion Gap mmol/L BUN (9-20) mg/dL Creatinine (0.66-1.25) mg/dL Est GFR (MDRD) Af Amer (>60 ml/min/1.73 sqM) Est GFR (MDRD) Non-Af (>60 ml/min/1.73 sqM) Glucose (74-99) mg/dL POC Glucose (mg/dL) 134 H (75-99) mg/dL POC Glu Hydro Station Operator ID Carol Velazquez Estimated Ave Glu mg/dL mg/dL Hemoglobin A1c (4.2-6.1) % Plasma Lactic Acid Clay 1.0 (0.7-2.0) mmol/L Calcium (8.4-10.2) mg/dL Phosphorus (2.5-4.5) mg/dL Magnesium (1.6-2.3) mg/dL Total Bilirubin (0.2-1.3) mg/dL AST (17-59) U/L ALT (21-72) U/L Alkaline Phosphatase (38-126) U/L Total Creatine Kinase (55-170) U/L CK-MB (CK-2) (0.0-2.4) ng/mL CK-MB (CK-2) Rel Index Troponin I (0.000-0.034) ng/mL NT-Pro-B Natriuret Pep pg/mL Total Protein (6.3-8.2) g/dL Albumin (3.5-5.0) g/dL Triglycerides (<150) mg/dL Cholesterol (<200) mg/dL LDL Cholesterol, Calc (0-99) mg/dL HDL Cholesterol (40-60) mg/dL Amylase (30-110) U/L Lipase (23-300) U/L Urine Color Urine Appearance (Clear) Urine pH (5.0-8.0) Ur Specific [place] (1.001-1.035) Urine Protein (Negative) Urine Glucose (UA) (Negative) Urine Ketones (Negative) Urine Blood (Negative) Urine Nitrate (Negative) Urine Bilirubin (Negative) Urine Urobilinogen (<2.0) mg/dL Ur Leukocyte Esterase (Negative) Urine WBC (0-5) /hpf Amorphous Sediment (None) /hpf Hyaline Casts (0-2) /lpf Granular Casts (0) /lpf Urine Mucus (None) /hpf Hepatitis A IgM Ab Hep Bs Antigen Hep B Core IgM Ab Hep C IgG Ab (Negative) 05/05/16 05/05/16 05/05/16 Range/Units 10:04 11:33 17:29 WBC (3.8-10.6) k/uL RBC (4.30-5.90) m/uL Hgb (13.0-17.5) gm/dL Hct (39.0-53.0) % MCV (80.0-100.0) fL MCH (25.0-35.0) pg MCHC (31.0-37.0) g/dL RDW (11.5-15.5) % Plt Count (150-450) k/uL Neutrophils % % Neutrophils % (Manual) % Band Neutrophils % % Lymphocytes % % Lymphocytes % (Manual) % Monocytes % % Monocytes % (Manual) % Eosinophils % % Eosinophils % (Manual) % Basophils % % Metamyelocytes % % Myelocytes % % Neutrophils # (1.3-7.7) k/uL Neutrophils # (Manual) (1.3-7.7) k/uL Lymphocytes # (1.0-4.8) k/uL Lymphocytes # (Manual) (1.0-4.8) k/uL Monocytes # (0-1.0) k/uL Monocytes # (Manual) (0-1.0) k/uL Eosinophils # (0-0.7) k/uL Eosinophils # (Manual) (0-0.7) k/uL Basophils # (0-0.2) k/uL Nucleated RBCs (0-0) /100 WBC Manual Slide Review Toxic Granulation Toxic Vacuolation Large Platelets Polychromasia Hypochromasia Poikilocytosis (manual Basophilic Stippling Anisocytosis Anisocytosis (manual) Macrocytosis PT (9.0-12.0) sec INR (<1.1) APTT (22.0-30.0) sec D-Dimer (<0.60) mg/L FEU Sample Site RRAD ABG pH 7.39 (7.35-7.45) ABG pCO2 34 L (35-45) mmHg ABG pO2 99 (83-108) mmHg ABG HCO3 20 L (21-25) mmol/L ABG Total CO2 21 (19-24) mmol/L ABG O2 Saturation 98.0 H (94-97) % ABG Base Excess -4.0 mmol/L FiO2 80 % Sodium (137-145) mmol/L Potassium (3.5-5.1) mmol/L Chloride (98-107) mmol/L Carbon Dioxide (22-30) mmol/L Anion Gap mmol/L BUN (9-20) mg/dL Creatinine (0.66-1.25) mg/dL Est GFR (MDRD) Af Amer (>60 ml/min/1.73 sqM) Est GFR (MDRD) Non-Af (>60 ml/min/1.73 sqM) Glucose (74-99) mg/dL POC Glucose (mg/dL) 184 H 239 H (75-99) mg/dL POC Glu Hydro Station Operator Lorene Rajan Alicia [address] Glu mg/dL mg/dL Hemoglobin A1c (4.2-6.1) % Plasma Lactic Acid Clay (0.7-2.0) mmol/L Calcium (8.4-10.2) mg/dL Phosphorus (2.5-4.5) mg/dL Magnesium (1.6-2.3) mg/dL Total Bilirubin (0.2-1.3) mg/dL AST (17-59) U/L ALT (21-72) U/L Alkaline Phosphatase (38-126) U/L Total Creatine Kinase (55-170) U/L CK-MB (CK-2) (0.0-2.4) ng/mL CK-MB (CK-2) Rel Index Troponin I (0.000-0.034) ng/mL NT-Pro-B Natriuret Pep pg/mL Total Protein (6.3-8.2) g/dL Albumin (3.5-5.0) g/dL Triglycerides (<150) mg/dL Cholesterol (<200) mg/dL LDL Cholesterol, Calc (0-99) mg/dL HDL Cholesterol (40-60) mg/dL Amylase (30-110) U/L Lipase (23-300) U/L Urine Color Urine Appearance (Clear) Urine pH (5.0-8.0) Ur Specific [place] (1.001-1.035) Urine Protein (Negative) Urine Glucose (UA) (Negative) Urine Ketones (Negative) Urine Blood (Negative) Urine Nitrate (Negative) Urine Bilirubin (Negative) Urine Urobilinogen (<2.0) mg/dL Ur Leukocyte Esterase (Negative) Urine WBC (0-5) /hpf Amorphous Sediment (None) /hpf Hyaline Casts (0-2) /lpf Granular Casts (0) /lpf Urine Mucus (None) /hpf Hepatitis A IgM Ab Hep Bs Antigen Hep B Core IgM Ab Hep C IgG Ab (Negative) 05/05/16 05/05/16 05/06/16 Range/Units 20:33 23:32 01:28 WBC (3.8-10.6) k/uL RBC (4.30-5.90) m/uL Hgb (13.0-17.5) gm/dL Hct (39.0-53.0) % MCV (80.0-100.0) fL MCH (25.0-35.0) pg MCHC (31.0-37.0) g/dL RDW (11.5-15.5) % Plt Count (150-450) k/uL Neutrophils % % Neutrophils % (Manual) % Band Neutrophils % % Lymphocytes % % Lymphocytes % (Manual) % Monocytes % % Monocytes % (Manual) % Eosinophils % % Eosinophils % (Manual) % Basophils % % Metamyelocytes % % Myelocytes % % Neutrophils # (1.3-7.7) k/uL Neutrophils # (Manual) (1.3-7.7) k/uL Lymphocytes # (1.0-4.8) k/uL Lymphocytes # (Manual) (1.0-4.8) k/uL Monocytes # (0-1.0) k/uL Monocytes # (Manual) (0-1.0) k/uL Eosinophils # (0-0.7) k/uL Eosinophils # (Manual) (0-0.7) k/uL Basophils # (0-0.2) k/uL Nucleated RBCs (0-0) /100 WBC Manual Slide Review Toxic Granulation Toxic Vacuolation Large Platelets Polychromasia Hypochromasia Poikilocytosis (manual Basophilic Stippling Anisocytosis Anisocytosis (manual) Macrocytosis PT (9.0-12.0) sec INR (<1.1) APTT (22.0-30.0) sec D-Dimer (<0.60) mg/L FEU Sample Site ABG pH (7.35-7.45) ABG pCO2 (35-45) mmHg ABG pO2 (83-108) mmHg ABG HCO3 (21-25) mmol/L ABG Total CO2 (19-24) mmol/L ABG O2 Saturation (94-97) % ABG Base Excess mmol/L FiO2 % Sodium (137-145) mmol/L Potassium (3.5-5.1) mmol/L Chloride (98-107) mmol/L Carbon Dioxide (22-30) mmol/L Anion Gap mmol/L BUN (9-20) mg/dL Creatinine (0.66-1.25) mg/dL Est GFR (MDRD) Af Amer (>60 ml/min/1.73 sqM) Est GFR (MDRD) Non-Af (>60 ml/min/1.73 sqM) Glucose (74-99) mg/dL POC Glucose (mg/dL) 270 H 270 H 253 H (75-99) mg/dL POC Glu Hydro Station Operator ID LeMere, Malou LeMere, Malou LeMere, Malou Estimated Ave Glu mg/dL mg/dL Hemoglobin A1c (4.2-6.1) % Plasma Lactic Acid Clay (0.7-2.0) mmol/L Calcium (8.4-10.2) mg/dL Phosphorus (2.5-4.5) mg/dL Magnesium (1.6-2.3) mg/dL Total Bilirubin (0.2-1.3) mg/dL AST (17-59) U/L ALT (21-72) U/L Alkaline Phosphatase (38-126) U/L Total Creatine Kinase (55-170) U/L CK-MB (CK-2) (0.0-2.4) ng/mL CK-MB (CK-2) Rel Index Troponin I (0.000-0.034) ng/mL NT-Pro-B Natriuret Pep pg/mL Total Protein (6.3-8.2) g/dL Albumin (3.5-5.0) g/dL Triglycerides (<150) mg/dL Cholesterol (<200) mg/dL LDL Cholesterol, Calc (0-99) mg/dL HDL Cholesterol (40-60) mg/dL Amylase (30-110) U/L Lipase (23-300) U/L Urine Color Urine Appearance (Clear) Urine pH (5.0-8.0) Ur Specific [place] (1.001-1.035) Urine Protein (Negative) Urine Glucose (UA) (Negative) Urine Ketones (Negative) Urine Blood (Negative) Urine Nitrate (Negative) Urine Bilirubin (Negative) Urine Urobilinogen (<2.0) mg/dL Ur Leukocyte Esterase (Negative) Urine WBC (0-5) /hpf Amorphous Sediment (None) /hpf Hyaline Casts (0-2) /lpf Granular Casts (0) /lpf Urine Mucus (None) /hpf Hepatitis A IgM Ab Hep Bs Antigen Hep B Core IgM Ab Hep C IgG Ab (Negative) 05/06/16 05/06/16 05/06/16 Range/Units 04:28 04:28 04:28 WBC 12.6 H (3.8-10.6) k/uL RBC 3.11 L (4.30-5.90) m/uL Hgb 10.4 L (13.0-17.5) gm/dL Hct 33.4 L (39.0-53.0) % MCV 107.5 H (80.0-100.0) fL MCH 33.6 (25.0-35.0) pg MCHC 31.2 (31.0-37.0) g/dL RDW 15.3 (11.5-15.5) % Plt Count 246 (150-450) k/uL Neutrophils % 92 % Neutrophils % (Manual) % Band Neutrophils % % Lymphocytes % 5 % Lymphocytes % (Manual) % Monocytes % 3 % Monocytes % (Manual) % Eosinophils % 0 % Eosinophils % (Manual) % Basophils % 0 % Metamyelocytes % % Myelocytes % % Neutrophils # 11.6 H (1.3-7.7) k/uL Neutrophils # (Manual) (1.3-7.7) k/uL Lymphocytes # 0.6 L (1.0-4.8) k/uL Lymphocytes # (Manual) (1.0-4.8) k/uL Monocytes # 0.3 (0-1.0) k/uL Monocytes # (Manual) (0-1.0) k/uL Eosinophils # 0.0 (0-0.7) k/uL Eosinophils # (Manual) (0-0.7) k/uL Basophils # 0.0 (0-0.2) k/uL Nucleated RBCs (0-0) /100 WBC Manual Slide Review Toxic Granulation Toxic Vacuolation Large Platelets Polychromasia Hypochromasia Slight Poikilocytosis (manual Basophilic Stippling Anisocytosis Anisocytosis (manual) Macrocytosis Marked PT 20.5 H (9.0-12.0) sec INR 2.1 (<1.1) APTT (22.0-30.0) sec D-Dimer (<0.60) mg/L FEU Sample Site ABG pH (7.35-7.45) ABG pCO2 (35-45) mmHg ABG pO2 (83-108) mmHg ABG HCO3 (21-25) mmol/L ABG Total CO2 (19-24) mmol/L ABG O2 Saturation (94-97) % ABG Base Excess mmol/L FiO2 % Sodium 147 H (137-145) mmol/L Potassium 3.8 (3.5-5.1) mmol/L Chloride 112 H (98-107) mmol/L Carbon Dioxide 24 (22-30) mmol/L Anion Gap 11 mmol/L BUN 69 H (9-20) mg/dL Creatinine 1.75 H (0.66-1.25) mg/dL Est GFR (MDRD) Af Amer 49 (>60 ml/min/1.73 sqM) Est GFR (MDRD) Non-Af 40 (>60 ml/min/1.73 sqM) Glucose 222 H (74-99) mg/dL POC Glucose (mg/dL) (75-99) mg/dL POC Glu Hydro Station Operator ID Estimated Ave Glu mg/dL mg/dL Hemoglobin A1c (4.2-6.1) % Plasma Lactic Acid Clay (0.7-2.0) mmol/L Calcium 8.3 L (8.4-10.2) mg/dL Phosphorus 5.3 H (2.5-4.5) mg/dL Magnesium 2.4 H (1.6-2.3) mg/dL Total Bilirubin (0.2-1.3) mg/dL AST (17-59) U/L ALT (21-72) U/L Alkaline Phosphatase (38-126) U/L Total Creatine Kinase (55-170) U/L CK-MB (CK-2) (0.0-2.4) ng/mL CK-MB (CK-2) Rel Index Troponin I (0.000-0.034) ng/mL NT-Pro-B Natriuret Pep pg/mL Total Protein (6.3-8.2) g/dL Albumin (3.5-5.0) g/dL Triglycerides (<150) mg/dL Cholesterol (<200) mg/dL LDL Cholesterol, Calc (0-99) mg/dL HDL Cholesterol (40-60) mg/dL Amylase <30 L (30-110) U/L Lipase 378 H (23-300) U/L Urine Color Urine Appearance (Clear) Urine pH (5.0-8.0) Ur Specific [place] (1.001-1.035) Urine Protein (Negative) Urine Glucose (UA) (Negative) Urine Ketones (Negative) Urine Blood (Negative) Urine Nitrate (Negative) Urine Bilirubin (Negative) Urine Urobilinogen (<2.0) mg/dL Ur Leukocyte Esterase (Negative) Urine WBC (0-5) /hpf Amorphous Sediment (None) /hpf Hyaline Casts (0-2) /lpf Granular Casts (0) /lpf Urine Mucus (None) /hpf Hepatitis A IgM Ab Hep Bs Antigen Hep B Core IgM Ab Hep C IgG Ab (Negative) 05/06/16 05/06/16 05/06/16 Range/Units 04:52 07:22 07:22 WBC (3.8-10.6) k/uL RBC (4.30-5.90) m/uL Hgb (13.0-17.5) gm/dL Hct (39.0-53.0) % MCV (80.0-100.0) fL MCH (25.0-35.0) pg MCHC (31.0-37.0) g/dL RDW (11.5-15.5) % Plt Count (150-450) k/uL Neutrophils % % Neutrophils % (Manual) % Band Neutrophils % % Lymphocytes % % Lymphocytes % (Manual) % Monocytes % % Monocytes % (Manual) % Eosinophils % % Eosinophils % (Manual) % Basophils % % Metamyelocytes % % Myelocytes % % Neutrophils # (1.3-7.7) k/uL Neutrophils # (Manual) (1.3-7.7) k/uL Lymphocytes # (1.0-4.8) k/uL Lymphocytes # (Manual) (1.0-4.8) k/uL Monocytes # (0-1.0) k/uL Monocytes # (Manual) (0-1.0) k/uL Eosinophils # (0-0.7) k/uL Eosinophils # (Manual) (0-0.7) k/uL Basophils # (0-0.2) k/uL Nucleated RBCs (0-0) /100 WBC Manual Slide Review Toxic Granulation Toxic Vacuolation Large Platelets Polychromasia Hypochromasia Poikilocytosis (manual Basophilic Stippling Anisocytosis Anisocytosis (manual) Macrocytosis PT (9.0-12.0) sec INR (<1.1) APTT (22.0-30.0) sec D-Dimer (<0.60) mg/L FEU Sample Site ABG pH (7.35-7.45) ABG pCO2 (35-45) mmHg ABG pO2 (83-108) mmHg ABG HCO3 (21-25) mmol/L ABG Total CO2 (19-24) mmol/L ABG O2 Saturation (94-97) % ABG Base Excess mmol/L FiO2 % Sodium (137-145) mmol/L Potassium 4.0 (3.5-5.1) mmol/L Chloride (98-107) mmol/L Carbon Dioxide (22-30) mmol/L Anion Gap mmol/L BUN (9-20) mg/dL Creatinine (0.66-1.25) mg/dL Est GFR (MDRD) Af Amer (>60 ml/min/1.73 sqM) Est GFR (MDRD) Non-Af (>60 ml/min/1.73 sqM) Glucose (74-99) mg/dL POC Glucose (mg/dL) 217 H (75-99) mg/dL POC Glu [employer] Operator [place] Est[address] Glu mg/dL mg/dL Hemoglobin A1c (4.2-6.1) % Plasma Lactic Acid Clay 1.8 (0.7-2.0) mmol/L Calcium (8.4-10.2) mg/dL Phosphorus (2.5-4.5) mg/dL Magnesium (1.6-2.3) mg/dL Total Bilirubin (0.2-1.3) mg/dL AST (17-59) U/L ALT (21-72) U/L Alkaline Phosphatase (38-126) U/L Total Creatine Kinase (55-170) U/L CK-MB (CK-2) (0.0-2.4) ng/mL CK-MB (CK-2) Rel Index Troponin I (0.000-0.034) ng/mL NT-Pro-B Natriuret Pep pg/mL Total Protein (6.3-8.2) g/dL Albumin (3.5-5.0) g/dL Triglycerides (<150) mg/dL Cholesterol (<200) mg/dL LDL Cholesterol, Calc (0-99) mg/dL HDL Cholesterol (40-60) mg/dL Amylase (30-110) U/L Lipase (23-300) U/L Urine Color Urine Appearance (Clear) Urine pH (5.0-8.0) Ur Specific [place] (1.001-1.035) Urine Protein (Negative) Urine Glucose (UA) (Negative) Urine Ketones (Negative) Urine Blood (Negative) Urine Nitrate (Negative) Urine Bilirubin (Negative) Urine Urobilinogen (<2.0) mg/dL Ur Leukocyte Esterase (Negative) Urine WBC (0-5) /hpf Amorphous Sediment (None) /hpf Hyaline Casts (0-2) /lpf Granular Casts (0) /lpf Urine Mucus (None) /hpf Hepatitis A IgM Ab Hep Bs Antigen Hep B Core IgM Ab Hep C IgG Ab (Negative) 12/21/16 12/21/16 12/21/16 Range/Units 12:52 17:47 19:57 WBC (3.8-10.6) k/uL RBC (4.30-5.90) m/uL Hgb (13.0-17.5) gm/dL Hct (39.0-53.0) % MCV (80.0-100.0) fL MCH (25.0-35.0) pg MCHC (31.0-37.0) g/dL RDW (11.5-15.5) % Plt Count (150-450) k/uL Neutrophils % % Neutrophils % (Manual) % Band Neutrophils % % Lymphocytes % % Lymphocytes % (Manual) % Monocytes % % Monocytes % (Manual) % Eosinophils % % Eosinophils % (Manual) % Basophils % % Metamyelocytes % % Myelocytes % % Neutrophils # (1.3-7.7) k/uL Neutrophils # (Manual) (1.3-7.7) k/uL Lymphocytes # (1.0-4.8) k/uL Lymphocytes # (Manual) (1.0-4.8) k/uL Monocytes # (0-1.0) k/uL Monocytes # (Manual) (0-1.0) k/uL Eosinophils # (0-0.7) k/uL Eosinophils # (Manual) (0-0.7) k/uL Basophils # (0-0.2) k/uL Nucleated RBCs (0-0) /100 WBC Manual Slide Review Toxic Granulation Toxic Vacuolation Large Platelets Polychromasia Hypochromasia Poikilocytosis (manual Basophilic Stippling Anisocytosis Anisocytosis (manual) Macrocytosis PT (9.0-12.0) sec INR (<1.1) APTT (22.0-30.0) sec D-Dimer (<0.60) mg/L FEU Sample Site ABG pH (7.35-7.45) ABG pCO2 (35-45) mmHg ABG pO2 (83-108) mmHg ABG HCO3 (21-25) mmol/L ABG Total CO2 (19-24) mmol/L ABG O2 Saturation (94-97) % ABG Base Excess mmol/L FiO2 % Sodium (137-145) mmol/L Potassium (3.5-5.1) mmol/L Chloride (98-107) mmol/L Carbon Dioxide (22-30) mmol/L Anion Gap mmol/L BUN (9-20) mg/dL Creatinine (0.66-1.25) mg/dL Est GFR (MDRD) Af Amer (>60 ml/min/1.73 sqM) Est GFR (MDRD) Non-Af (>60 ml/min/1.73 sqM) Glucose (74-99) mg/dL POC Glucose (mg/dL) 159 H 137 H 183 H (75-99) mg/dL POC Glu [employer] Operator SIDRA Tamiko Clara Lopez, Alessandrakiarra Howe, [place] [address] Glu mg/dL mg/dL Hemoglobin A1c (4.2-6.1) % Plasma Lactic Acid Clay (0.7-2.0) mmol/L Calcium (8.4-10.2) mg/dL Phosphorus (2.5-4.5) mg/dL Magnesium (1.6-2.3) mg/dL Total Bilirubin (0.2-1.3) mg/dL AST (17-59) U/L ALT (21-72) U/L Alkaline Phosphatase (38-126) U/L Total Creatine Kinase (55-170) U/L CK-MB (CK-2) (0.0-2.4) ng/mL CK-MB (CK-2) Rel Index Troponin I (0.000-0.034) ng/mL NT-Pro-B Natriuret Pep pg/mL Total Protein (6.3-8.2) g/dL Albumin (3.5-5.0) g/dL Triglycerides (<150) mg/dL Cholesterol (<200) mg/dL LDL Cholesterol, Calc (0-99) mg/dL HDL Cholesterol (40-60) mg/dL Amylase (30-110) U/L Lipase (23-300) U/L Urine Color Urine Appearance (Clear) Urine pH (5.0-8.0) Ur Specific [place] (1.001-1.035) Urine Protein (Negative) Urine Glucose (UA) (Negative) Urine Ketones (Negative) Urine Blood (Negative) Urine Nitrate (Negative) Urine Bilirubin (Negative) Urine Urobilinogen (<2.0) mg/dL Ur Leukocyte Esterase (Negative) Urine WBC (0-5) /hpf Amorphous Sediment (None) /hpf Hyaline Casts (0-2) /lpf Granular Casts (0) /lpf Urine Mucus (None) /hpf Hepatitis A IgM Ab Hep Bs Antigen Hep B Core IgM Ab Hep C IgG Ab (Negative) 05/06/16 05/07/16 05/07/16 Range/Units 23:23 05:08 05:08 WBC 12.7 H (3.8-10.6) k/uL RBC 3.00 L (4.30-5.90) m/uL Hgb 10.0 L (13.0-17.5) gm/dL Hct 32.6 L (39.0-53.0) % MCV 108.8 H (80.0-100.0) fL MCH 33.3 (25.0-35.0) pg MCHC 30.6 L (31.0-37.0) g/dL RDW 15.4 (11.5-15.5) % Plt Count 248 (150-450) k/uL Neutrophils % 91 % Neutrophils % (Manual) % Band Neutrophils % % Lymphocytes % 6 % Lymphocytes % (Manual) % Monocytes % 3 % Monocytes % (Manual) % Eosinophils % 0 % Eosinophils % (Manual) % Basophils % 0 % Metamyelocytes % % Myelocytes % % Neutrophils # 11.5 H (1.3-7.7) k/uL Neutrophils # (Manual) (1.3-7.7) k/uL Lymphocytes # 0.7 L (1.0-4.8) k/uL Lymphocytes # (Manual) (1.0-4.8) k/uL Monocytes # 0.4 (0-1.0) k/uL Monocytes # (Manual) (0-1.0) k/uL Eosinophils # 0.0 (0-0.7) k/uL Eosinophils # (Manual) (0-0.7) k/uL Basophils # 0.0 (0-0.2) k/uL Nucleated RBCs (0-0) /100 WBC Manual Slide Review Toxic Granulation Toxic Vacuolation Large Platelets Polychromasia Hypochromasia Slight Poikilocytosis (manual Basophilic Stippling Anisocytosis Anisocytosis (manual) Macrocytosis Marked PT 19.6 H (9.0-12.0) sec INR 2.0 (<1.1) APTT (22.0-30.0) sec D-Dimer (<0.60) mg/L FEU Sample Site ABG pH (7.35-7.45) ABG pCO2 (35-45) mmHg ABG pO2 (83-108) mmHg ABG HCO3 (21-25) mmol/L ABG Total CO2 (19-24) mmol/L ABG O2 Saturation (94-97) % ABG Base Excess mmol/L FiO2 % Sodium (137-145) mmol/L Potassium (3.5-5.1) mmol/L Chloride (98-107) mmol/L Carbon Dioxide (22-30) mmol/L Anion Gap mmol/L BUN (9-20) mg/dL Creatinine (0.66-1.25) mg/dL Est GFR (MDRD) Af Amer (>60 ml/min/1.73 sqM) Est GFR (MDRD) Non-Af (>60 ml/min/1.73 sqM) Glucose (74-99) mg/dL POC Glucose (mg/dL) 136 H (75-99) mg/dL POC Glu Hydro Station Operator ID Malou Howe Estimated Ave Glu mg/dL mg/dL Hemoglobin A1c (4.2-6.1) % Plasma Lactic Acid Clay (0.7-2.0) mmol/L Calcium (8.4-10.2) mg/dL Phosphorus (2.5-4.5) mg/dL Magnesium (1.6-2.3) mg/dL Total Bilirubin (0.2-1.3) mg/dL AST (17-59) U/L ALT (21-72) U/L Alkaline Phosphatase (38-126) U/L Total Creatine Kinase (55-170) U/L CK-MB (CK-2) (0.0-2.4) ng/mL CK-MB (CK-2) Rel Index Troponin I (0.000-0.034) ng/mL NT-Pro-B Natriuret Pep pg/mL Total Protein (6.3-8.2) g/dL Albumin (3.5-5.0) g/dL Triglycerides (<150) mg/dL Cholesterol (<200) mg/dL LDL Cholesterol, Calc (0-99) mg/dL HDL Cholesterol (40-60) mg/dL Amylase (30-110) U/L Lipase (23-300) U/L Urine Color Urine Appearance (Clear) Urine pH (5.0-8.0) Ur Specific [place] (1.001-1.035) Urine Protein (Negative) Urine Glucose (UA) (Negative) Urine Ketones (Negative) Urine Blood (Negative) Urine Nitrate (Negative) Urine Bilirubin (Negative) Urine Urobilinogen (<2.0) mg/dL Ur Leukocyte Esterase (Negative) Urine WBC (0-5) /hpf Amorphous Sediment (None) /hpf Hyaline Casts (0-2) /lpf Granular Casts (0) /lpf Urine Mucus (None) /hpf Hepatitis A IgM Ab Hep Bs Antigen Hep B Core IgM Ab Hep C IgG Ab (Negative) 05/07/16 05/07/16 05/07/16 Range/Units 05:08 08:16 08:20 WBC (3.8-10.6) k/uL RBC (4.30-5.90) m/uL Hgb (13.0-17.5) gm/dL Hct (39.0-53.0) % MCV (80.0-100.0) fL MCH (25.0-35.0) pg MCHC (31.0-37.0) g/dL RDW (11.5-15.5) % Plt Count (150-450) k/uL Neutrophils % % Neutrophils % (Manual) % Band Neutrophils % % Lymphocytes % % Lymphocytes % (Manual) % Monocytes % % Monocytes % (Manual) % Eosinophils % % Eosinophils % (Manual) % Basophils % % Metamyelocytes % % Myelocytes % % Neutrophils # (1.3-7.7) k/uL Neutrophils # (Manual) (1.3-7.7) k/uL Lymphocytes # (1.0-4.8) k/uL Lymphocytes # (Manual) (1.0-4.8) k/uL Monocytes # (0-1.0) k/uL Monocytes # (Manual) (0-1.0) k/uL Eosinophils # (0-0.7) k/uL Eosinophils # (Manual) (0-0.7) k/uL Basophils # (0-0.2) k/uL Nucleated RBCs (0-0) /100 WBC Manual Slide Review Toxic Granulation Toxic Vacuolation Large Platelets Polychromasia Hypochromasia Poikilocytosis (manual Basophilic Stippling Anisocytosis Anisocytosis (manual) Macrocytosis PT (9.0-12.0) sec INR (<1.1) APTT (22.0-30.0) sec D-Dimer (<0.60) mg/L FEU Sample Site ABG pH (7.35-7.45) ABG pCO2 (35-45) mmHg ABG pO2 (83-108) mmHg ABG HCO3 (21-25) mmol/L ABG Total CO2 (19-24) mmol/L ABG O2 Saturation (94-97) % ABG Base Excess mmol/L FiO2 % Sodium 147 H (137-145) mmol/L Potassium 4.0 (3.5-5.1) mmol/L Chloride 110 H (98-107) mmol/L Carbon Dioxide 26 (22-30) mmol/L Anion Gap 11 mmol/L BUN 63 H (9-20) mg/dL Creatinine 1.69 H (0.66-1.25) mg/dL Est GFR (MDRD) Af Amer 51 (>60 ml/min/1.73 sqM) Est GFR (MDRD) Non-Af 42 (>60 ml/min/1.73 sqM) Glucose 126 H (74-99) mg/dL POC Glucose (mg/dL) 103 H (75-99) mg/dL POC Glu Hydro Station Operator ID Fernandez Perez Estimated Ave Glu mg/dL mg/dL Hemoglobin A1c (4.2-6.1) % Plasma Lactic Acid Clay 1.1 (0.7-2.0) mmol/L Calcium 8.3 L (8.4-10.2) mg/dL Phosphorus 4.0 (2.5-4.5) mg/dL Magnesium 2.5 H (1.6-2.3) mg/dL Total Bilirubin (0.2-1.3) mg/dL AST (17-59) U/L ALT (21-72) U/L Alkaline Phosphatase (38-126) U/L Total Creatine Kinase (55-170) U/L CK-MB (CK-2) (0.0-2.4) ng/mL CK-MB (CK-2) Rel Index Troponin I (0.000-0.034) ng/mL NT-Pro-B Natriuret Pep pg/mL Total Protein (6.3-8.2) g/dL Albumin (3.5-5.0) g/dL Triglycerides (<150) mg/dL Cholesterol (<200) mg/dL LDL Cholesterol, Calc (0-99) mg/dL HDL Cholesterol (40-60) mg/dL Amylase (30-110) U/L Lipase (23-300) U/L Urine Color Urine Appearance (Clear) Urine pH (5.0-8.0) Ur Specific [place] (1.001-1.035) Urine Protein (Negative) Urine Glucose (UA) (Negative) Urine Ketones (Negative) Urine Blood (Negative) Urine Nitrate (Negative) Urine Bilirubin (Negative) Urine Urobilinogen (<2.0) mg/dL Ur Leukocyte Esterase (Negative) Urine WBC (0-5) /hpf Amorphous Sediment (None) /hpf Hyaline Casts (0-2) /lpf Granular Casts (0) /lpf Urine Mucus (None) /hpf Hepatitis A IgM Ab Hep Bs Antigen Hep B Core IgM Ab Hep C IgG Ab (Negative) 05/07/16 05/07/16 05/07/16 Range/Units 11:59 17:09 21:12 WBC (3.8-10.6) k/uL RBC (4.30-5.90) m/uL Hgb (13.0-17.5) gm/dL Hct (39.0-53.0) % MCV (80.0-100.0) fL MCH (25.0-35.0) pg MCHC (31.0-37.0) g/dL RDW (11.5-15.5) % Plt Count (150-450) k/uL Neutrophils % % Neutrophils % (Manual) % Band Neutrophils % % Lymphocytes % % Lymphocytes % (Manual) % Monocytes % % Monocytes % (Manual) % Eosinophils % % Eosinophils % (Manual) % Basophils % % Metamyelocytes % % Myelocytes % % Neutrophils # (1.3-7.7) k/uL Neutrophils # (Manual) (1.3-7.7) k/uL Lymphocytes # (1.0-4.8) k/uL Lymphocytes # (Manual) (1.0-4.8) k/uL Monocytes # (0-1.0) k/uL Monocytes # (Manual) (0-1.0) k/uL Eosinophils # (0-0.7) k/uL Eosinophils # (Manual) (0-0.7) k/uL Basophils # (0-0.2) k/uL Nucleated RBCs (0-0) /100 WBC Manual Slide Review Toxic Granulation Toxic Vacuolation Large Platelets Polychromasia Hypochromasia Poikilocytosis (manual Basophilic Stippling Anisocytosis Anisocytosis (manual) Macrocytosis PT (9.0-12.0) sec INR (<1.1) APTT (22.0-30.0) sec D-Dimer (<0.60) mg/L FEU Sample Site ABG pH (7.35-7.45) ABG pCO2 (35-45) mmHg ABG pO2 (83-108) mmHg ABG HCO3 (21-25) mmol/L ABG Total CO2 (19-24) mmol/L ABG O2 Saturation (94-97) % ABG Base Excess mmol/L FiO2 % Sodium (137-145) mmol/L Potassium (3.5-5.1) mmol/L Chloride (98-107) mmol/L Carbon Dioxide (22-30) mmol/L Anion Gap mmol/L BUN (9-20) mg/dL Creatinine (0.66-1.25) mg/dL Est GFR (MDRD) Af Amer (>60 ml/min/1.73 sqM) Est GFR (MDRD) Non-Af (>60 ml/min/1.73 sqM) Glucose (74-99) mg/dL POC Glucose (mg/dL) 98 122 H 165 H (75-99) mg/dL POC Glu Hydro Station Operator ID Alessandra Lopez, Landen Yoo Estimated Ave Glu mg/dL mg/dL Hemoglobin A1c (4.2-6.1) % Plasma Lactic Acid Clay (0.7-2.0) mmol/L Calcium (8.4-10.2) mg/dL Phosphorus (2.5-4.5) mg/dL Magnesium (1.6-2.3) mg/dL Total Bilirubin (0.2-1.3) mg/dL AST (17-59) U/L ALT (21-72) U/L Alkaline Phosphatase (38-126) U/L Total Creatine Kinase (55-170) U/L CK-MB (CK-2) (0.0-2.4) ng/mL CK-MB (CK-2) Rel Index Troponin I (0.000-0.034) ng/mL NT-Pro-B Natriuret Pep pg/mL Total Protein (6.3-8.2) g/dL Albumin (3.5-5.0) g/dL Triglycerides (<150) mg/dL Cholesterol (<200) mg/dL LDL Cholesterol, Calc (0-99) mg/dL HDL Cholesterol (40-60) mg/dL Amylase (30-110) U/L Lipase (23-300) U/L Urine Color Urine Appearance (Clear) Urine pH (5.0-8.0) Ur Specific [place] (1.001-1.035) Urine Protein (Negative) Urine Glucose (UA) (Negative) Urine Ketones (Negative) Urine Blood (Negative) Urine Nitrate (Negative) Urine Bilirubin (Negative) Urine Urobilinogen (<2.0) mg/dL Ur Leukocyte Esterase (Negative) Urine WBC (0-5) /hpf Amorphous Sediment (None) /hpf Hyaline Casts (0-2) /lpf Granular Casts (0) /lpf Urine Mucus (None) /hpf Hepatitis A IgM Ab Hep Bs Antigen Hep B Core IgM Ab Hep C IgG Ab (Negative) 05/08/16 05/08/16 05/08/16 Range/Units 03:25 05:06 05:06 WBC 13.6 H (3.8-10.6) k/uL RBC 2.92 L (4.30-5.90) m/uL Hgb 9.9 L (13.0-17.5) gm/dL Hct 31.6 L (39.0-53.0) % MCV 108.0 H (80.0-100.0) fL MCH 33.9 (25.0-35.0) pg MCHC 31.4 (31.0-37.0) g/dL RDW 15.4 (11.5-15.5) % Plt Count 234 (150-450) k/uL Neutrophils % 95 % Neutrophils % (Manual) % Band Neutrophils % % Lymphocytes % 4 % Lymphocytes % (Manual) % Monocytes % 2 % Monocytes % (Manual) % Eosinophils % 0 % Eosinophils % (Manual) % Basophils % 0 % Metamyelocytes % % Myelocytes % % Neutrophils # 12.8 H (1.3-7.7) k/uL Neutrophils # (Manual) (1.3-7.7) k/uL Lymphocytes # 0.5 L (1.0-4.8) k/uL Lymphocytes # (Manual) (1.0-4.8) k/uL Monocytes # 0.2 (0-1.0) k/uL Monocytes # (Manual) (0-1.0) k/uL Eosinophils # 0.0 (0-0.7) k/uL Eosinophils # (Manual) (0-0.7) k/uL Basophils # 0.0 (0-0.2) k/uL Nucleated RBCs (0-0) /100 WBC Manual Slide Review Performed Toxic Granulation Toxic Vacuolation Large Platelets Present Polychromasia Present Hypochromasia Slight Poikilocytosis (manual Basophilic Stippling Anisocytosis Anisocytosis (manual) Macrocytosis Marked PT 19.1 H (9.0-12.0) sec INR 2.0 (<1.1) APTT (22.0-30.0) sec D-Dimer (<0.60) mg/L FEU Sample Site ABG pH (7.35-7.45) ABG pCO2 (35-45) mmHg ABG pO2 (83-108) mmHg ABG HCO3 (21-25) mmol/L ABG Total CO2 (19-24) mmol/L ABG O2 Saturation (94-97) % ABG Base Excess mmol/L FiO2 % Sodium (137-145) mmol/L Potassium (3.5-5.1) mmol/L Chloride (98-107) mmol/L Carbon Dioxide (22-30) mmol/L Anion Gap mmol/L BUN (9-20) mg/dL Creatinine (0.66-1.25) mg/dL Est GFR (MDRD) Af Amer (>60 ml/min/1.73 sqM) Est GFR (MDRD) Non-Af (>60 ml/min/1.73 sqM) Glucose (74-99) mg/dL POC Glucose (mg/dL) 134 H (75-99) mg/dL POC Glu Hydro Station Operator ID Landen Glasgow Estimated Ave Glu mg/dL mg/dL Hemoglobin A1c (4.2-6.1) % Plasma Lactic Acid Clay (0.7-2.0) mmol/L Calcium (8.4-10.2) mg/dL Phosphorus (2.5-4.5) mg/dL Magnesium (1.6-2.3) mg/dL Total Bilirubin (0.2-1.3) mg/dL AST (17-59) U/L ALT (21-72) U/L Alkaline Phosphatase (38-126) U/L Total Creatine Kinase (55-170) U/L CK-MB (CK-2) (0.0-2.4) ng/mL CK-MB (CK-2) Rel Index Troponin I (0.000-0.034) ng/mL NT-Pro-B Natriuret Pep pg/mL Total Protein (6.3-8.2) g/dL Albumin (3.5-5.0) g/dL Triglycerides (<150) mg/dL Cholesterol (<200) mg/dL LDL Cholesterol, Calc (0-99) mg/dL HDL Cholesterol (40-60) mg/dL Amylase (30-110) U/L Lipase (23-300) U/L Urine Color Urine Appearance (Clear) Urine pH (5.0-8.0) Ur Specific [place] (1.001-1.035) Urine Protein (Negative) Urine Glucose (UA) (Negative) Urine Ketones (Negative) Urine Blood (Negative) Urine Nitrate (Negative) Urine Bilirubin (Negative) Urine Urobilinogen (<2.0) mg/dL Ur Leukocyte Esterase (Negative) Urine WBC (0-5) /hpf Amorphous Sediment (None) /hpf Hyaline Casts (0-2) /lpf Granular Casts (0) /lpf Urine Mucus (None) /hpf Hepatitis A IgM Ab Hep Bs Antigen Hep B Core IgM Ab Hep C IgG Ab (Negative) 05/08/16 05/08/16 05/08/16 Range/Units 05:06 07:29 12:53 WBC (3.8-10.6) k/uL RBC (4.30-5.90) m/uL Hgb (13.0-17.5) gm/dL Hct (39.0-53.0) % MCV (80.0-100.0) fL MCH (25.0-35.0) pg MCHC (31.0-37.0) g/dL RDW (11.5-15.5) % Plt Count (150-450) k/uL Neutrophils % % Neutrophils % (Manual) % Band Neutrophils % % Lymphocytes % % Lymphocytes % (Manual) % Monocytes % % Monocytes % (Manual) % Eosinophils % % Eosinophils % (Manual) % Basophils % % Metamyelocytes % % Myelocytes % % Neutrophils # (1.3-7.7) k/uL Neutrophils # (Manual) (1.3-7.7) k/uL Lymphocytes # (1.0-4.8) k/uL Lymphocytes # (Manual) (1.0-4.8) k/uL Monocytes # (0-1.0) k/uL Monocytes # (Manual) (0-1.0) k/uL Eosinophils # (0-0.7) k/uL Eosinophils # (Manual) (0-0.7) k/uL Basophils # (0-0.2) k/uL Nucleated RBCs (0-0) /100 WBC Manual Slide Review Toxic Granulation Toxic Vacuolation Large Platelets Polychromasia Hypochromasia Poikilocytosis (manual Basophilic Stippling Anisocytosis Anisocytosis (manual) Macrocytosis PT (9.0-12.0) sec INR (<1.1) APTT (22.0-30.0) sec D-Dimer (<0.60) mg/L FEU Sample Site ABG pH (7.35-7.45) ABG pCO2 (35-45) mmHg ABG pO2 (83-108) mmHg ABG HCO3 (21-25) mmol/L ABG Total CO2 (19-24) mmol/L ABG O2 Saturation (94-97) % ABG Base Excess mmol/L FiO2 % Sodium 144 (137-145) mmol/L Potassium 4.4 (3.5-5.1) mmol/L Chloride 109 H (98-107) mmol/L Carbon Dioxide 26 (22-30) mmol/L Anion Gap 9 mmol/L BUN 62 H (9-20) mg/dL Creatinine 1.62 H (0.66-1.25) mg/dL Est GFR (MDRD) Af Amer 53 (>60 ml/min/1.73 sqM) Est GFR (MDRD) Non-Af 44 (>60 ml/min/1.73 sqM) Glucose 166 H (74-99) mg/dL POC Glucose (mg/dL) 139 H 188 H (75-99) mg/dL POC Glu Hydro Station Operator ID Estimated Ave Glu mg/dL mg/dL Hemoglobin A1c (4.2-6.1) % Plasma Lactic Acid Clay (0.7-2.0) mmol/L Calcium 8.4 (8.4-10.2) mg/dL Phosphorus 4.5 (2.5-4.5) mg/dL Magnesium 2.5 H (1.6-2.3) mg/dL Total Bilirubin (0.2-1.3) mg/dL AST (17-59) U/L ALT (21-72) U/L Alkaline Phosphatase (38-126) U/L Total Creatine Kinase (55-170) U/L CK-MB (CK-2) (0.0-2.4) ng/mL CK-MB (CK-2) Rel Index Troponin I (0.000-0.034) ng/mL NT-Pro-B Natriuret Pep pg/mL Total Protein (6.3-8.2) g/dL Albumin (3.5-5.0) g/dL Triglycerides (<150) mg/dL Cholesterol (<200) mg/dL LDL Cholesterol, Calc (0-99) mg/dL HDL Cholesterol (40-60) mg/dL Amylase (30-110) U/L Lipase (23-300) U/L Urine Color Urine Appearance (Clear) Urine pH (5.0-8.0) Ur Specific [place] (1.001-1.035) Urine Protein (Negative) Urine Glucose (UA) (Negative) Urine Ketones (Negative) Urine Blood (Negative) Urine Nitrate (Negative) Urine Bilirubin (Negative) Urine Urobilinogen (<2.0) mg/dL Ur Leukocyte Esterase (Negative) Urine WBC (0-5) /hpf Amorphous Sediment (None) /hpf Hyaline Casts (0-2) /lpf Granular Casts (0) /lpf Urine Mucus (None) /hpf Hepatitis A IgM Ab Hep Bs Antigen Hep B Core IgM Ab Hep C IgG Ab (Negative) 05/08/16 05/08/16 05/09/16 Range/Units 16:41 21:00 03:17 WBC (3.8-10.6) k/uL RBC (4.30-5.90) m/uL Hgb (13.0-17.5) gm/dL Hct (39.0-53.0) % MCV (80.0-100.0) fL MCH (25.0-35.0) pg MCHC (31.0-37.0) g/dL RDW (11.5-15.5) % Plt Count (150-450) k/uL Neutrophils % % Neutrophils % (Manual) % Band Neutrophils % % Lymphocytes % % Lymphocytes % (Manual) % Monocytes % % Monocytes % (Manual) % Eosinophils % % Eosinophils % (Manual) % Basophils % % Metamyelocytes % % Myelocytes % % Neutrophils # (1.3-7.7) k/uL Neutrophils # (Manual) (1.3-7.7) k/uL Lymphocytes # (1.0-4.8) k/uL Lymphocytes # (Manual) (1.0-4.8) k/uL Monocytes # (0-1.0) k/uL Monocytes # (Manual) (0-1.0) k/uL Eosinophils # (0-0.7) k/uL Eosinophils # (Manual) (0-0.7) k/uL Basophils # (0-0.2) k/uL Nucleated RBCs (0-0) /100 WBC Manual Slide Review Toxic Granulation Toxic Vacuolation Large Platelets Polychromasia Hypochromasia Poikilocytosis (manual Basophilic Stippling Anisocytosis Anisocytosis (manual) Macrocytosis PT (9.0-12.0) sec INR (<1.1) APTT (22.0-30.0) sec D-Dimer (<0.60) mg/L FEU Sample Site ABG pH (7.35-7.45) ABG pCO2 (35-45) mmHg ABG pO2 (83-108) mmHg ABG HCO3 (21-25) mmol/L ABG Total CO2 (19-24) mmol/L ABG O2 Saturation (94-97) % ABG Base Excess mmol/L FiO2 % Sodium (137-145) mmol/L Potassium (3.5-5.1) mmol/L Chloride (98-107) mmol/L Carbon Dioxide (22-30) mmol/L Anion Gap mmol/L BUN (9-20) mg/dL Creatinine (0.66-1.25) mg/dL Est GFR (MDRD) Af Amer (>60 ml/min/1.73 sqM) Est GFR (MDRD) Non-Af (>60 ml/min/1.73 sqM) Glucose (74-99) mg/dL POC Glucose (mg/dL) 250 H 180 H 141 H (75-99) mg/dL POC Glu Hydro Station Operator Darline Fishman Jeremy Witmer, Jeremy Estimated Ave Glu mg/dL mg/dL Hemoglobin A1c (4.2-6.1) % Plasma Lactic Acid Clay (0.7-2.0) mmol/L Calcium (8.4-10.2) mg/dL Phosphorus (2.5-4.5) mg/dL Magnesium (1.6-2.3) mg/dL Total Bilirubin (0.2-1.3) mg/dL AST (17-59) U/L ALT (21-72) U/L Alkaline Phosphatase (38-126) U/L Total Creatine Kinase (55-170) U/L CK-MB (CK-2) (0.0-2.4) ng/mL CK-MB (CK-2) Rel Index Troponin I (0.000-0.034) ng/mL NT-Pro-B Natriuret Pep pg/mL Total Protein (6.3-8.2) g/dL Albumin (3.5-5.0) g/dL Triglycerides (<150) mg/dL Cholesterol (<200) mg/dL LDL Cholesterol, Calc (0-99) mg/dL HDL Cholesterol (40-60) mg/dL Amylase (30-110) U/L Lipase (23-300) U/L Urine Color Urine Appearance (Clear) Urine pH (5.0-8.0) Ur Specific [place] (1.001-1.035) Urine Protein (Negative) Urine Glucose (UA) (Negative) Urine Ketones (Negative) Urine Blood (Negative) Urine Nitrate (Negative) Urine Bilirubin (Negative) Urine Urobilinogen (<2.0) mg/dL Ur Leukocyte Esterase (Negative) Urine WBC (0-5) /hpf Amorphous Sediment (None) /hpf Hyaline Casts (0-2) /lpf Granular Casts (0) /lpf Urine Mucus (None) /hpf Hepatitis A IgM Ab Hep Bs Antigen Hep B Core IgM Ab Hep C IgG Ab (Negative) 05/09/16 05/09/16 05/09/16 Range/Units 05:37 05:37 05:37 WBC 12.8 H (3.8-10.6) k/uL RBC 3.00 L (4.30-5.90) m/uL Hgb 10.3 L (13.0-17.5) gm/dL Hct 32.3 L (39.0-53.0) % MCV 107.6 H (80.0-100.0) fL MCH 34.2 (25.0-35.0) pg MCHC 31.8 (31.0-37.0) g/dL RDW 15.2 (11.5-15.5) % Plt Count 255 (150-450) k/uL Neutrophils % 95 % Neutrophils % (Manual) % Band Neutrophils % % Lymphocytes % 3 % Lymphocytes % (Manual) % Monocytes % 2 % Monocytes % (Manual) % Eosinophils % 0 % Eosinophils % (Manual) % Basophils % 0 % Metamyelocytes % % Myelocytes % % Neutrophils # 12.2 H (1.3-7.7) k/uL Neutrophils # (Manual) (1.3-7.7) k/uL Lymphocytes # 0.4 L (1.0-4.8) k/uL Lymphocytes # (Manual) (1.0-4.8) k/uL Monocytes # 0.3 (0-1.0) k/uL Monocytes # (Manual) (0-1.0) k/uL Eosinophils # 0.0 (0-0.7) k/uL Eosinophils # (Manual) (0-0.7) k/uL Basophils # 0.0 (0-0.2) k/uL Nucleated RBCs (0-0) /100 WBC Manual Slide Review Toxic Granulation Toxic Vacuolation Large Platelets Polychromasia Present Hypochromasia Slight Poikilocytosis (manual Basophilic Stippling Anisocytosis Anisocytosis (manual) Macrocytosis Marked PT 22.6 H (9.0-12.0) sec INR 2.3 (<1.1) APTT (22.0-30.0) sec D-Dimer (<0.60) mg/L FEU Sample Site ABG pH (7.35-7.45) ABG pCO2 (35-45) mmHg ABG pO2 (83-108) mmHg ABG HCO3 (21-25) mmol/L ABG Total CO2 (19-24) mmol/L ABG O2 Saturation (94-97) % ABG Base Excess mmol/L FiO2 % Sodium 144 (137-145) mmol/L Potassium 4.4 (3.5-5.1) mmol/L Chloride 108 H (98-107) mmol/L Carbon Dioxide 25 (22-30) mmol/L Anion Gap 11 mmol/L BUN 62 H (9-20) mg/dL Creatinine 1.30 H (0.66-1.25) mg/dL Est GFR (MDRD) Af Amer >60 (>60 ml/min/1.73 sqM) Est GFR (MDRD) Non-Af 57 (>60 ml/min/1.73 sqM) Glucose 126 H (74-99) mg/dL POC Glucose (mg/dL) (75-99) mg/dL POC Glu Hydro Station Operator ID Estimated Ave Glu mg/dL mg/dL Hemoglobin A1c (4.2-6.1) % Plasma Lactic Acid Clay (0.7-2.0) mmol/L Calcium 8.2 L (8.4-10.2) mg/dL Phosphorus 4.5 (2.5-4.5) mg/dL Magnesium 2.6 H (1.6-2.3) mg/dL Total Bilirubin 0.4 (0.2-1.3) mg/dL AST 21 (17-59) U/L ALT 32 (21-72) U/L Alkaline Phosphatase 67 (38-126) U/L Total Creatine Kinase (55-170) U/L CK-MB (CK-2) (0.0-2.4) ng/mL CK-MB (CK-2) Rel Index Troponin I (0.000-0.034) ng/mL NT-Pro-B Natriuret Pep pg/mL Total Protein 4.2 L (6.3-8.2) g/dL Albumin 2.2 L (3.5-5.0) g/dL Triglycerides (<150) mg/dL Cholesterol (<200) mg/dL LDL Cholesterol, Calc (0-99) mg/dL HDL Cholesterol (40-60) mg/dL Amylase (30-110) U/L Lipase (23-300) U/L Urine Color Urine Appearance (Clear) Urine pH (5.0-8.0) Ur Specific [place] (1.001-1.035) Urine Protein (Negative) Urine Glucose (UA) (Negative) Urine Ketones (Negative) Urine Blood (Negative) Urine Nitrate (Negative) Urine Bilirubin (Negative) Urine Urobilinogen (<2.0) mg/dL Ur Leukocyte Esterase (Negative) Urine WBC (0-5) /hpf Amorphous Sediment (None) /hpf Hyaline Casts (0-2) /lpf Granular Casts (0) /lpf Urine Mucus (None) /hpf Hepatitis A IgM Ab Hep Bs Antigen Hep B Core IgM Ab Hep C IgG Ab (Negative) 05/09/16 05/09/16 05/09/16 Range/Units 06:17 11:52 16:51 WBC (3.8-10.6) k/uL RBC (4.30-5.90) m/uL Hgb (13.0-17.5) gm/dL Hct (39.0-53.0) % MCV (80.0-100.0) fL MCH (25.0-35.0) pg MCHC (31.0-37.0) g/dL RDW (11.5-15.5) % Plt Count (150-450) k/uL Neutrophils % % Neutrophils % (Manual) % Band Neutrophils % % Lymphocytes % % Lymphocytes % (Manual) % Monocytes % % Monocytes % (Manual) % Eosinophils % % Eosinophils % (Manual) % Basophils % % Metamyelocytes % % Myelocytes % % Neutrophils # (1.3-7.7) k/uL Neutrophils # (Manual) (1.3-7.7) k/uL Lymphocytes # (1.0-4.8) k/uL Lymphocytes # (Manual) (1.0-4.8) k/uL Monocytes # (0-1.0) k/uL Monocytes # (Manual) (0-1.0) k/uL Eosinophils # (0-0.7) k/uL Eosinophils # (Manual) (0-0.7) k/uL Basophils # (0-0.2) k/uL Nucleated RBCs (0-0) /100 WBC Manual Slide Review Toxic Granulation Toxic Vacuolation Large Platelets Polychromasia Hypochromasia Poikilocytosis (manual Basophilic Stippling Anisocytosis Anisocytosis (manual) Macrocytosis PT (9.0-12.0) sec INR (<1.1) APTT (22.0-30.0) sec D-Dimer (<0.60) mg/L FEU Sample Site ABG pH (7.35-7.45) ABG pCO2 (35-45) mmHg ABG pO2 (83-108) mmHg ABG HCO3 (21-25) mmol/L ABG Total CO2 (19-24) mmol/L ABG O2 Saturation (94-97) % ABG Base Excess mmol/L FiO2 % Sodium (137-145) mmol/L Potassium (3.5-5.1) mmol/L Chloride (98-107) mmol/L Carbon Dioxide (22-30) mmol/L Anion Gap mmol/L BUN (9-20) mg/dL Creatinine (0.66-1.25) mg/dL Est GFR (MDRD) Af Amer (>60 ml/min/1.73 sqM) Est GFR (MDRD) Non-Af (>60 ml/min/1.73 sqM) Glucose (74-99) mg/dL POC Glucose (mg/dL) 125 H 83 72 L (75-99) mg/dL POC Glu [employer] Operator SIDRA Jung, Kirill Calvillo, Melody Calvillo, Melody Estimated Ave Glu mg/dL mg/dL Hemoglobin A1c (4.2-6.1) % Plasma Lactic Acid Clay (0.7-2.0) mmol/L Calcium (8.4-10.2) mg/dL Phosphorus (2.5-4.5) mg/dL Magnesium (1.6-2.3) mg/dL Total Bilirubin (0.2-1.3) mg/dL AST (17-59) U/L ALT (21-72) U/L Alkaline Phosphatase (38-126) U/L Total Creatine Kinase (55-170) U/L CK-MB (CK-2) (0.0-2.4) ng/mL CK-MB (CK-2) Rel Index Troponin I (0.000-0.034) ng/mL NT-Pro-B Natriuret Pep pg/mL Total Protein (6.3-8.2) g/dL Albumin (3.5-5.0) g/dL Triglycerides (<150) mg/dL Cholesterol (<200) mg/dL LDL Cholesterol, Calc (0-99) mg/dL HDL Cholesterol (40-60) mg/dL Amylase (30-110) U/L Lipase (23-300) U/L Urine Color Urine Appearance (Clear) Urine pH (5.0-8.0) Ur Specific [place] (1.001-1.035) Urine Protein (Negative) Urine Glucose (UA) (Negative) Urine Ketones (Negative) Urine Blood (Negative) Urine Nitrate (Negative) Urine Bilirubin (Negative) Urine Urobilinogen (<2.0) mg/dL Ur Leukocyte Esterase (Negative) Urine WBC (0-5) /hpf Amorphous Sediment (None) /hpf Hyaline Casts (0-2) /lpf Granular Casts (0) /lpf Urine Mucus (None) /hpf Hepatitis A IgM Ab Hep Bs Antigen Hep B Core IgM Ab Hep C IgG Ab (Negative) 05/09/16 05/09/16 05/09/16 Range/Units 20:26 20:55 21:18 WBC (3.8-10.6) k/uL RBC (4.30-5.90) m/uL Hgb (13.0-17.5) gm/dL Hct (39.0-53.0) % MCV (80.0-100.0) fL MCH (25.0-35.0) pg MCHC (31.0-37.0) g/dL RDW (11.5-15.5) % Plt Count (150-450) k/uL Neutrophils % % Neutrophils % (Manual) % Band Neutrophils % % Lymphocytes % % Lymphocytes % (Manual) % Monocytes % % Monocytes % (Manual) % Eosinophils % % Eosinophils % (Manual) % Basophils % % Metamyelocytes % % Myelocytes % % Neutrophils # (1.3-7.7) k/uL Neutrophils # (Manual) (1.3-7.7) k/uL Lymphocytes # (1.0-4.8) k/uL Lymphocytes # (Manual) (1.0-4.8) k/uL Monocytes # (0-1.0) k/uL Monocytes # (Manual) (0-1.0) k/uL Eosinophils # (0-0.7) k/uL Eosinophils # (Manual) (0-0.7) k/uL Basophils # (0-0.2) k/uL Nucleated RBCs (0-0) /100 WBC Manual Slide Review Toxic Granulation Toxic Vacuolation Large Platelets Polychromasia Hypochromasia Poikilocytosis (manual Basophilic Stippling Anisocytosis Anisocytosis (manual) Macrocytosis PT (9.0-12.0) sec INR (<1.1) APTT (22.0-30.0) sec D-Dimer (<0.60) mg/L FEU Sample Site ABG pH (7.35-7.45) ABG pCO2 (35-45) mmHg ABG pO2 (83-108) mmHg ABG HCO3 (21-25) mmol/L ABG Total CO2 (19-24) mmol/L ABG O2 Saturation (94-97) % ABG Base Excess mmol/L FiO2 % Sodium (137-145) mmol/L Potassium (3.5-5.1) mmol/L Chloride (98-107) mmol/L Carbon Dioxide (22-30) mmol/L Anion Gap mmol/L BUN (9-20) mg/dL Creatinine (0.66-1.25) mg/dL Est GFR (MDRD) Af Amer (>60 ml/min/1.73 sqM) Est GFR (MDRD) Non-Af (>60 ml/min/1.73 sqM) Glucose (74-99) mg/dL POC Glucose (mg/dL) 43 L 48 L 54 L (75-99) mg/dL POC Glu Hydro Station Operator Kirill Bell, Kirill Olsen Estimated Ave Glu mg/dL mg/dL Hemoglobin A1c (4.2-6.1) % Plasma Lactic Acid Clay (0.7-2.0) mmol/L Calcium (8.4-10.2) mg/dL Phosphorus (2.5-4.5) mg/dL Magnesium (1.6-2.3) mg/dL Total Bilirubin (0.2-1.3) mg/dL AST (17-59) U/L ALT (21-72) U/L Alkaline Phosphatase (38-126) U/L Total Creatine Kinase (55-170) U/L CK-MB (CK-2) (0.0-2.4) ng/mL CK-MB (CK-2) Rel Index Troponin I (0.000-0.034) ng/mL NT-Pro-B Natriuret Pep pg/mL Total Protein (6.3-8.2) g/dL Albumin (3.5-5.0) g/dL Triglycerides (<150) mg/dL Cholesterol (<200) mg/dL LDL Cholesterol, Calc (0-99) mg/dL HDL Cholesterol (40-60) mg/dL Amylase (30-110) U/L Lipase (23-300) U/L Urine Color Urine Appearance (Clear) Urine pH (5.0-8.0) Ur Specific [place] (1.001-1.035) Urine Protein (Negative) Urine Glucose (UA) (Negative) Urine Ketones (Negative) Urine Blood (Negative) Urine Nitrate (Negative) Urine Bilirubin (Negative) Urine Urobilinogen (<2.0) mg/dL Ur Leukocyte Esterase (Negative) Urine WBC (0-5) /hpf Amorphous Sediment (None) /hpf Hyaline Casts (0-2) /lpf Granular Casts (0) /lpf Urine Mucus (None) /hpf Hepatitis A IgM Ab Hep Bs Antigen Hep B Core IgM Ab Hep C IgG Ab (Negative) 05/09/16 05/10/16 05/10/16 Range/Units 21:48 01:49 05:21 WBC 19.3 H (3.8-10.6) k/uL RBC 3.10 L (4.30-5.90) m/uL Hgb 10.8 L (13.0-17.5) gm/dL Hct 34.8 L (39.0-53.0) % MCV 112.0 H (80.0-100.0) fL MCH 34.8 (25.0-35.0) pg MCHC 31.1 (31.0-37.0) g/dL RDW 15.5 (11.5-15.5) % Plt Count 278 (150-450) k/uL Neutrophils % 91 % Neutrophils % (Manual) % Band Neutrophils % % Lymphocytes % 2 % Lymphocytes % (Manual) % Monocytes % 7 % Monocytes % (Manual) % Eosinophils % 0 % Eosinophils % (Manual) % Basophils % 0 % Metamyelocytes % % Myelocytes % % Neutrophils # 17.5 H (1.3-7.7) k/uL Neutrophils # (Manual) (1.3-7.7) k/uL Lymphocytes # 0.4 L (1.0-4.8) k/uL Lymphocytes # (Manual) (1.0-4.8) k/uL Monocytes # 1.3 H (0-1.0) k/uL Monocytes # (Manual) (0-1.0) k/uL Eosinophils # 0.0 (0-0.7) k/uL Eosinophils # (Manual) (0-0.7) k/uL Basophils # 0.1 (0-0.2) k/uL Nucleated RBCs (0-0) /100 WBC Manual Slide Review Performed Toxic Granulation Toxic Vacuolation Large Platelets Polychromasia Present Hypochromasia Marked Poikilocytosis (manual Basophilic Stippling Anisocytosis Anisocytosis (manual) Macrocytosis Marked PT (9.0-12.0) sec INR (<1.1) APTT (22.0-30.0) sec D-Dimer (<0.60) mg/L FEU Sample Site ABG pH (7.35-7.45) ABG pCO2 (35-45) mmHg ABG pO2 (83-108) mmHg ABG HCO3 (21-25) mmol/L ABG Total CO2 (19-24) mmol/L ABG O2 Saturation (94-97) % ABG Base Excess mmol/L FiO2 % Sodium (137-145) mmol/L Potassium (3.5-5.1) mmol/L Chloride (98-107) mmol/L Carbon Dioxide (22-30) mmol/L Anion Gap mmol/L BUN (9-20) mg/dL Creatinine (0.66-1.25) mg/dL Est GFR (MDRD) Af Amer (>60 ml/min/1.73 sqM) Est GFR (MDRD) Non-Af (>60 ml/min/1.73 sqM) Glucose (74-99) mg/dL POC Glucose (mg/dL) 81 176 H (75-99) mg/dL POC Glu [employer] Operator Kirill Bell Jeremy [address] Glu mg/dL mg/dL Hemoglobin A1c (4.2-6.1) % Plasma Lactic Acid Clay (0.7-2.0) mmol/L Calcium (8.4-10.2) mg/dL Phosphorus (2.5-4.5) mg/dL Magnesium (1.6-2.3) mg/dL Total Bilirubin (0.2-1.3) mg/dL AST (17-59) U/L ALT (21-72) U/L Alkaline Phosphatase (38-126) U/L Total Creatine Kinase (55-170) U/L CK-MB (CK-2) (0.0-2.4) ng/mL CK-MB (CK-2) Rel Index Troponin I (0.000-0.034) ng/mL NT-Pro-B Natriuret Pep pg/mL Total Protein (6.3-8.2) g/dL Albumin (3.5-5.0) g/dL Triglycerides (<150) mg/dL Cholesterol (<200) mg/dL LDL Cholesterol, Calc (0-99) mg/dL HDL Cholesterol (40-60) mg/dL Amylase (30-110) U/L Lipase (23-300) U/L Urine Color Urine Appearance (Clear) Urine pH (5.0-8.0) Ur Specific [place] (1.001-1.035) Urine Protein (Negative) Urine Glucose (UA) (Negative) Urine Ketones (Negative) Urine Blood (Negative) Urine Nitrate (Negative) Urine Bilirubin (Negative) Urine Urobilinogen (<2.0) mg/dL Ur Leukocyte Esterase (Negative) Urine WBC (0-5) /hpf Amorphous Sediment (None) /hpf Hyaline Casts (0-2) /lpf Granular Casts (0) /lpf Urine Mucus (None) /hpf Hepatitis A IgM Ab Hep Bs Antigen Hep B Core IgM Ab Hep C IgG Ab (Negative) 05/10/16 05/10/16 05/10/16 Range/Units 05:21 05:21 06:11 WBC (3.8-10.6) k/uL RBC (4.30-5.90) m/uL Hgb (13.0-17.5) gm/dL Hct (39.0-53.0) % MCV (80.0-100.0) fL MCH (25.0-35.0) pg MCHC (31.0-37.0) g/dL RDW (11.5-15.5) % Plt Count (150-450) k/uL Neutrophils % % Neutrophils % (Manual) % Band Neutrophils % % Lymphocytes % % Lymphocytes % (Manual) % Monocytes % % Monocytes % (Manual) % Eosinophils % % Eosinophils % (Manual) % Basophils % % Metamyelocytes % % Myelocytes % % Neutrophils # (1.3-7.7) k/uL Neutrophils # (Manual) (1.3-7.7) k/uL Lymphocytes # (1.0-4.8) k/uL Lymphocytes # (Manual) (1.0-4.8) k/uL Monocytes # (0-1.0) k/uL Monocytes # (Manual) (0-1.0) k/uL Eosinophils # (0-0.7) k/uL Eosinophils # (Manual) (0-0.7) k/uL Basophils # (0-0.2) k/uL Nucleated RBCs (0-0) /100 WBC Manual Slide Review Toxic Granulation Toxic Vacuolation Large Platelets Polychromasia Hypochromasia Poikilocytosis (manual Basophilic Stippling Anisocytosis Anisocytosis (manual) Macrocytosis PT 28.8 H (9.0-12.0) sec INR 3.0 (<1.1) APTT (22.0-30.0) sec D-Dimer (<0.60) mg/L FEU Sample Site ABG pH (7.35-7.45) ABG pCO2 (35-45) mmHg ABG pO2 (83-108) mmHg ABG HCO3 (21-25) mmol/L ABG Total CO2 (19-24) mmol/L ABG O2 Saturation (94-97) % ABG Base Excess mmol/L FiO2 % Sodium 146 H (137-145) mmol/L Potassium 5.5 H (3.5-5.1) mmol/L Chloride 110 H (98-107) mmol/L Carbon Dioxide 25 (22-30) mmol/L Anion Gap 11 mmol/L BUN 59 H (9-20) mg/dL Creatinine 1.40 H (0.66-1.25) mg/dL Est GFR (MDRD) Af Amer >60 (>60 ml/min/1.73 sqM) Est GFR (MDRD) Non-Af 52 (>60 ml/min/1.73 sqM) Glucose 222 H (74-99) mg/dL POC Glucose (mg/dL) 230 H (75-99) mg/dL POC Glu Hydro Station Operator ID Kirill Jung Estimated Ave Glu mg/dL mg/dL Hemoglobin A1c (4.2-6.1) % Plasma Lactic Acid Clay (0.7-2.0) mmol/L Calcium 8.6 (8.4-10.2) mg/dL Phosphorus 4.7 H (2.5-4.5) mg/dL Magnesium 2.6 H (1.6-2.3) mg/dL Total Bilirubin (0.2-1.3) mg/dL AST (17-59) U/L ALT (21-72) U/L Alkaline Phosphatase (38-126) U/L Total Creatine Kinase (55-170) U/L CK-MB (CK-2) (0.0-2.4) ng/mL CK-MB (CK-2) Rel Index Troponin I (0.000-0.034) ng/mL NT-Pro-B Natriuret Pep pg/mL Total Protein (6.3-8.2) g/dL Albumin (3.5-5.0) g/dL Triglycerides (<150) mg/dL Cholesterol (<200) mg/dL LDL Cholesterol, Calc (0-99) mg/dL HDL Cholesterol (40-60) mg/dL Amylase (30-110) U/L Lipase (23-300) U/L Urine Color Urine Appearance (Clear) Urine pH (5.0-8.0) Ur Specific [place] (1.001-1.035) Urine Protein (Negative) Urine Glucose (UA) (Negative) Urine Ketones (Negative) Urine Blood (Negative) Urine Nitrate (Negative) Urine Bilirubin (Negative) Urine Urobilinogen (<2.0) mg/dL Ur Leukocyte Esterase (Negative) Urine WBC (0-5) /hpf Amorphous Sediment (None) /hpf Hyaline Casts (0-2) /lpf Granular Casts (0) /lpf Urine Mucus (None) /hpf Hepatitis A IgM Ab Hep Bs Antigen Hep B Core IgM Ab Hep C IgG Ab (Negative) 05/10/16 05/10/16 05/10/16 Range/Units 11:45 17:08 20:39 WBC (3.8-10.6) k/uL RBC (4.30-5.90) m/uL Hgb (13.0-17.5) gm/dL Hct (39.0-53.0) % MCV (80.0-100.0) fL MCH (25.0-35.0) pg MCHC (31.0-37.0) g/dL RDW (11.5-15.5) % Plt Count (150-450) k/uL Neutrophils % % Neutrophils % (Manual) % Band Neutrophils % % Lymphocytes % % Lymphocytes % (Manual) % Monocytes % % Monocytes % (Manual) % Eosinophils % % Eosinophils % (Manual) % Basophils % % Metamyelocytes % % Myelocytes % % Neutrophils # (1.3-7.7) k/uL Neutrophils # (Manual) (1.3-7.7) k/uL Lymphocytes # (1.0-4.8) k/uL Lymphocytes # (Manual) (1.0-4.8) k/uL Monocytes # (0-1.0) k/uL Monocytes # (Manual) (0-1.0) k/uL Eosinophils # (0-0.7) k/uL Eosinophils # (Manual) (0-0.7) k/uL Basophils # (0-0.2) k/uL Nucleated RBCs (0-0) /100 WBC Manual Slide Review Toxic Granulation Toxic Vacuolation Large Platelets Polychromasia Hypochromasia Poikilocytosis (manual Basophilic Stippling Anisocytosis Anisocytosis (manual) Macrocytosis PT (9.0-12.0) sec INR (<1.1) APTT (22.0-30.0) sec D-Dimer (<0.60) mg/L FEU Sample Site ABG pH (7.35-7.45) ABG pCO2 (35-45) mmHg ABG pO2 (83-108) mmHg ABG HCO3 (21-25) mmol/L ABG Total CO2 (19-24) mmol/L ABG O2 Saturation (94-97) % ABG Base Excess mmol/L FiO2 % Sodium (137-145) mmol/L Potassium (3.5-5.1) mmol/L Chloride (98-107) mmol/L Carbon Dioxide (22-30) mmol/L Anion Gap mmol/L BUN (9-20) mg/dL Creatinine (0.66-1.25) mg/dL Est GFR (MDRD) Af Amer (>60 ml/min/1.73 sqM) Est GFR (MDRD) Non-Af (>60 ml/min/1.73 sqM) Glucose (74-99) mg/dL POC Glucose (mg/dL) 168 H 120 H 159 H (75-99) mg/dL POC Glu Hydro Station Operator SIDRA Scanlonanthony, Satyaildefonso Obrien, Nasreen Brooks [address]imated [address] Glu mg/dL mg/dL Hemoglobin A1c (4.2-6.1) % Plasma Lactic Acid Clay (0.7-2.0) mmol/L Calcium (8.4-10.2) mg/dL Phosphorus (2.5-4.5) mg/dL Magnesium (1.6-2.3) mg/dL Total Bilirubin (0.2-1.3) mg/dL AST (17-59) U/L ALT (21-72) U/L Alkaline Phosphatase (38-126) U/L Total Creatine Kinase (55-170) U/L CK-MB (CK-2) (0.0-2.4) ng/mL CK-MB (CK-2) Rel Index Troponin I (0.000-0.034) ng/mL NT-Pro-B Natriuret Pep pg/mL Total Protein (6.3-8.2) g/dL Albumin (3.5-5.0) g/dL Triglycerides (<150) mg/dL Cholesterol (<200) mg/dL LDL Cholesterol, Calc (0-99) mg/dL HDL Cholesterol (40-60) mg/dL Amylase (30-110) U/L Lipase (23-300) U/L Urine Color Urine Appearance (Clear) Urine pH (5.0-8.0) Ur Specific [place] (1.001-1.035) Urine Protein (Negative) Urine Glucose (UA) (Negative) Urine Ketones (Negative) Urine Blood (Negative) Urine Nitrate (Negative) Urine Bilirubin (Negative) Urine Urobilinogen (<2.0) mg/dL Ur Leukocyte Esterase (Negative) Urine WBC (0-5) /hpf Amorphous Sediment (None) /hpf Hyaline Casts (0-2) /lpf Granular Casts (0) /lpf Urine Mucus (None) /hpf Hepatitis A IgM Ab Hep Bs Antigen Hep B Core IgM Ab Hep C IgG Ab (Negative) 05/11/16 05/11/16 05/11/16 Range/Units 01:59 05:51 08:50 WBC (3.8-10.6) k/uL RBC (4.30-5.90) m/uL Hgb (13.0-17.5) gm/dL Hct (39.0-53.0) % MCV (80.0-100.0) fL MCH (25.0-35.0) pg MCHC (31.0-37.0) g/dL RDW (11.5-15.5) % Plt Count (150-450) k/uL Neutrophils % % Neutrophils % (Manual) % Band Neutrophils % % Lymphocytes % % Lymphocytes % (Manual) % Monocytes % % Monocytes % (Manual) % Eosinophils % % Eosinophils % (Manual) % Basophils % % Metamyelocytes % % Myelocytes % % Neutrophils # (1.3-7.7) k/uL Neutrophils # (Manual) (1.3-7.7) k/uL Lymphocytes # (1.0-4.8) k/uL Lymphocytes # (Manual) (1.0-4.8) k/uL Monocytes # (0-1.0) k/uL Monocytes # (Manual) (0-1.0) k/uL Eosinophils # (0-0.7) k/uL Eosinophils # (Manual) (0-0.7) k/uL Basophils # (0-0.2) k/uL Nucleated RBCs (0-0) /100 WBC Manual Slide Review Toxic Granulation Toxic Vacuolation Large Platelets Polychromasia Hypochromasia Poikilocytosis (manual Basophilic Stippling Anisocytosis Anisocytosis (manual) Macrocytosis PT 29.4 H (9.0-12.0) sec INR 3.0 (<1.1) APTT (22.0-30.0) sec D-Dimer (<0.60) mg/L FEU Sample Site ABG pH (7.35-7.45) ABG pCO2 (35-45) mmHg ABG pO2 (83-108) mmHg ABG HCO3 (21-25) mmol/L ABG Total CO2 (19-24) mmol/L ABG O2 Saturation (94-97) % ABG Base Excess mmol/L FiO2 % Sodium (137-145) mmol/L Potassium (3.5-5.1) mmol/L Chloride (98-107) mmol/L Carbon Dioxide (22-30) mmol/L Anion Gap mmol/L BUN (9-20) mg/dL Creatinine (0.66-1.25) mg/dL Est GFR (MDRD) Af Amer (>60 ml/min/1.73 sqM) Est GFR (MDRD) Non-Af (>60 ml/min/1.73 sqM) Glucose (74-99) mg/dL POC Glucose (mg/dL) 134 H 111 H (75-99) mg/dL POC Glu Hydro Station Operator Nasreen Schulte Caroline [address] Glu mg/dL mg/dL Hemoglobin A1c (4.2-6.1) % Plasma Lactic Acid Clay (0.7-2.0) mmol/L Calcium (8.4-10.2) mg/dL Phosphorus (2.5-4.5) mg/dL Magnesium (1.6-2.3) mg/dL Total Bilirubin (0.2-1.3) mg/dL AST (17-59) U/L ALT (21-72) U/L Alkaline Phosphatase (38-126) U/L Total Creatine Kinase (55-170) U/L CK-MB (CK-2) (0.0-2.4) ng/mL CK-MB (CK-2) Rel Index Troponin I (0.000-0.034) ng/mL NT-Pro-B Natriuret Pep pg/mL Total Protein (6.3-8.2) g/dL Albumin (3.5-5.0) g/dL Triglycerides (<150) mg/dL Cholesterol (<200) mg/dL LDL Cholesterol, Calc (0-99) mg/dL HDL Cholesterol (40-60) mg/dL Amylase (30-110) U/L Lipase (23-300) U/L Urine Color Urine Appearance (Clear) Urine pH (5.0-8.0) Ur Specific [place] (1.001-1.035) Urine Protein (Negative) Urine Glucose (UA) (Negative) Urine Ketones (Negative) Urine Blood (Negative) Urine Nitrate (Negative) Urine Bilirubin (Negative) Urine Urobilinogen (<2.0) mg/dL Ur Leukocyte Esterase (Negative) Urine WBC (0-5) /hpf Amorphous Sediment (None) /hpf Hyaline Casts (0-2) /lpf Granular Casts (0) /lpf Urine Mucus (None) /hpf Hepatitis A IgM Ab Hep Bs Antigen Hep B Core IgM Ab Hep C IgG Ab (Negative) 05/11/16 05/11/16 05/11/16 Range/Units 08:50 11:30 17:18 WBC (3.8-10.6) k/uL RBC (4.30-5.90) m/uL Hgb (13.0-17.5) gm/dL Hct (39.0-53.0) % MCV (80.0-100.0) fL MCH (25.0-35.0) pg MCHC (31.0-37.0) g/dL RDW (11.5-15.5) % Plt Count (150-450) k/uL Neutrophils % % Neutrophils % (Manual) % Band Neutrophils % % Lymphocytes % % Lymphocytes % (Manual) % Monocytes % % Monocytes % (Manual) % Eosinophils % % Eosinophils % (Manual) % Basophils % % Metamyelocytes % % Myelocytes % % Neutrophils # (1.3-7.7) k/uL Neutrophils # (Manual) (1.3-7.7) k/uL Lymphocytes # (1.0-4.8) k/uL Lymphocytes # (Manual) (1.0-4.8) k/uL Monocytes # (0-1.0) k/uL Monocytes # (Manual) (0-1.0) k/uL Eosinophils # (0-0.7) k/uL Eosinophils # (Manual) (0-0.7) k/uL Basophils # (0-0.2) k/uL Nucleated RBCs (0-0) /100 WBC Manual Slide Review Toxic Granulation Toxic Vacuolation Large Platelets Polychromasia Hypochromasia Poikilocytosis (manual Basophilic Stippling Anisocytosis Anisocytosis (manual) Macrocytosis PT (9.0-12.0) sec INR (<1.1) APTT (22.0-30.0) sec D-Dimer (<0.60) mg/L FEU Sample Site ABG pH (7.35-7.45) ABG pCO2 (35-45) mmHg ABG pO2 (83-108) mmHg ABG HCO3 (21-25) mmol/L ABG Total CO2 (19-24) mmol/L ABG O2 Saturation (94-97) % ABG Base Excess mmol/L FiO2 % Sodium 151 H (137-145) mmol/L Potassium 5.3 H (3.5-5.1) mmol/L Chloride 112 H (98-107) mmol/L Carbon Dioxide 27 (22-30) mmol/L Anion Gap 12 mmol/L BUN 56 H (9-20) mg/dL Creatinine 1.39 H (0.66-1.25) mg/dL Est GFR (MDRD) Af Amer >60 (>60 ml/min/1.73 sqM) Est GFR (MDRD) Non-Af 53 (>60 ml/min/1.73 sqM) Glucose 106 H (74-99) mg/dL POC Glucose (mg/dL) 97 170 H (75-99) mg/dL POC Glu Hydro Station Operator ID Nicol Trimble Estimated Ave Glu mg/dL mg/dL Hemoglobin A1c (4.2-6.1) % Plasma Lactic Acid Clay (0.7-2.0) mmol/L Calcium 9.2 (8.4-10.2) mg/dL Phosphorus (2.5-4.5) mg/dL Magnesium (1.6-2.3) mg/dL Total Bilirubin (0.2-1.3) mg/dL AST (17-59) U/L ALT (21-72) U/L Alkaline Phosphatase (38-126) U/L Total Creatine Kinase (55-170) U/L CK-MB (CK-2) (0.0-2.4) ng/mL CK-MB (CK-2) Rel Index Troponin I (0.000-0.034) ng/mL NT-Pro-B Natriuret Pep pg/mL Total Protein (6.3-8.2) g/dL Albumin (3.5-5.0) g/dL Triglycerides (<150) mg/dL Cholesterol (<200) mg/dL LDL Cholesterol, Calc (0-99) mg/dL HDL Cholesterol (40-60) mg/dL Amylase (30-110) U/L Lipase (23-300) U/L Urine Color Urine Appearance (Clear) Urine pH (5.0-8.0) Ur Specific [place] (1.001-1.035) Urine Protein (Negative) Urine Glucose (UA) (Negative) Urine Ketones (Negative) Urine Blood (Negative) Urine Nitrate (Negative) Urine Bilirubin (Negative) Urine Urobilinogen (<2.0) mg/dL Ur Leukocyte Esterase (Negative) Urine WBC (0-5) /hpf Amorphous Sediment (None) /hpf Hyaline Casts (0-2) /lpf Granular Casts (0) /lpf Urine Mucus (None) /hpf Hepatitis A IgM Ab Hep Bs Antigen Hep B Core IgM Ab Hep C IgG Ab (Negative) 05/11/16 05/12/16 05/12/16 Range/Units 21:03 05:40 07:26 WBC 14.7 H (3.8-10.6) k/uL RBC 3.30 L (4.30-5.90) m/uL Hgb 11.0 L (13.0-17.5) gm/dL Hct 34.9 L (39.0-53.0) % MCV 105.7 H D (80.0-100.0) fL MCH 33.3 (25.0-35.0) pg MCHC 31.5 (31.0-37.0) g/dL RDW 15.8 H (11.5-15.5) % Plt Count 195 (150-450) k/uL Neutrophils % 92 % Neutrophils % (Manual) % Band Neutrophils % % Lymphocytes % 3 % Lymphocytes % (Manual) % Monocytes % 4 % Monocytes % (Manual) % Eosinophils % 0 % Eosinophils % (Manual) % Basophils % 0 % Metamyelocytes % % Myelocytes % % Neutrophils # 13.5 H (1.3-7.7) k/uL Neutrophils # (Manual) (1.3-7.7) k/uL Lymphocytes # 0.5 L (1.0-4.8) k/uL Lymphocytes # (Manual) (1.0-4.8) k/uL Monocytes # 0.6 (0-1.0) k/uL Monocytes # (Manual) (0-1.0) k/uL Eosinophils # 0.0 (0-0.7) k/uL Eosinophils # (Manual) (0-0.7) k/uL Basophils # 0.0 (0-0.2) k/uL Nucleated RBCs (0-0) /100 WBC Manual Slide Review Performed Toxic Granulation Toxic Vacuolation Large Platelets Polychromasia Hypochromasia Poikilocytosis (manual Basophilic Stippling Present Anisocytosis Anisocytosis (manual) Macrocytosis Moderate PT (9.0-12.0) sec INR (<1.1) APTT (22.0-30.0) sec D-Dimer (<0.60) mg/L FEU Sample Site ABG pH (7.35-7.45) ABG pCO2 (35-45) mmHg ABG pO2 (83-108) mmHg ABG HCO3 (21-25) mmol/L ABG Total CO2 (19-24) mmol/L ABG O2 Saturation (94-97) % ABG Base Excess mmol/L FiO2 % Sodium (137-145) mmol/L Potassium (3.5-5.1) mmol/L Chloride (98-107) mmol/L Carbon Dioxide (22-30) mmol/L Anion Gap mmol/L BUN (9-20) mg/dL Creatinine (0.66-1.25) mg/dL Est GFR (MDRD) Af Amer (>60 ml/min/1.73 sqM) Est GFR (MDRD) Non-Af (>60 ml/min/1.73 sqM) Glucose (74-99) mg/dL POC Glucose (mg/dL) 163 H 87 (75-99) mg/dL POC Glu Hydro Station Operator SIDRA Zarate, Mahnaz Dominguez Estimated Ave Glu mg/dL mg/dL Hemoglobin A1c (4.2-6.1) % Plasma Lactic Acid Clay (0.7-2.0) mmol/L Calcium (8.4-10.2) mg/dL Phosphorus (2.5-4.5) mg/dL Magnesium (1.6-2.3) mg/dL Total Bilirubin (0.2-1.3) mg/dL AST (17-59) U/L ALT (21-72) U/L Alkaline Phosphatase (38-126) U/L Total Creatine Kinase (55-170) U/L CK-MB (CK-2) (0.0-2.4) ng/mL CK-MB (CK-2) Rel Index Troponin I (0.000-0.034) ng/mL NT-Pro-B Natriuret Pep pg/mL Total Protein (6.3-8.2) g/dL Albumin (3.5-5.0) g/dL Triglycerides (<150) mg/dL Cholesterol (<200) mg/dL LDL Cholesterol, Calc (0-99) mg/dL HDL Cholesterol (40-60) mg/dL Amylase (30-110) U/L Lipase (23-300) U/L Urine Color Urine Appearance (Clear) Urine pH (5.0-8.0) Ur Specific [place] (1.001-1.035) Urine Protein (Negative) Urine Glucose (UA) (Negative) Urine Ketones (Negative) Urine Blood (Negative) Urine Nitrate (Negative) Urine Bilirubin (Negative) Urine Urobilinogen (<2.0) mg/dL Ur Leukocyte Esterase (Negative) Urine WBC (0-5) /hpf Amorphous Sediment (None) /hpf Hyaline Casts (0-2) /lpf Granular Casts (0) /lpf Urine Mucus (None) /hpf Hepatitis A IgM Ab Hep Bs Antigen Hep B Core IgM Ab Hep C IgG Ab (Negative) 05/12/16 05/12/16 05/12/16 Range/Units 07:29 07:55 11:02 WBC (3.8-10.6) k/uL RBC (4.30-5.90) m/uL Hgb (13.0-17.5) gm/dL Hct (39.0-53.0) % MCV (80.0-100.0) fL MCH (25.0-35.0) pg MCHC (31.0-37.0) g/dL RDW (11.5-15.5) % Plt Count (150-450) k/uL Neutrophils % % Neutrophils % (Manual) % Band Neutrophils % % Lymphocytes % % Lymphocytes % (Manual) % Monocytes % % Monocytes % (Manual) % Eosinophils % % Eosinophils % (Manual) % Basophils % % Metamyelocytes % % Myelocytes % % Neutrophils # (1.3-7.7) k/uL Neutrophils # (Manual) (1.3-7.7) k/uL Lymphocytes # (1.0-4.8) k/uL Lymphocytes # (Manual) (1.0-4.8) k/uL Monocytes # (0-1.0) k/uL Monocytes # (Manual) (0-1.0) k/uL Eosinophils # (0-0.7) k/uL Eosinophils # (Manual) (0-0.7) k/uL Basophils # (0-0.2) k/uL Nucleated RBCs (0-0) /100 WBC Manual Slide Review Toxic Granulation Toxic Vacuolation Large Platelets Polychromasia Hypochromasia Poikilocytosis (manual Basophilic Stippling Anisocytosis Anisocytosis (manual) Macrocytosis PT 18.8 H (9.0-12.0) sec INR 2.0 (<1.1) APTT (22.0-30.0) sec D-Dimer (<0.60) mg/L FEU Sample Site ABG pH (7.35-7.45) ABG pCO2 (35-45) mmHg ABG pO2 (83-108) mmHg ABG HCO3 (21-25) mmol/L ABG Total CO2 (19-24) mmol/L ABG O2 Saturation (94-97) % ABG Base Excess mmol/L FiO2 % Sodium 147 H (137-145) mmol/L Potassium 5.6 H (3.5-5.1) mmol/L Chloride 110 H (98-107) mmol/L Carbon Dioxide 28 (22-30) mmol/L Anion Gap 9 mmol/L BUN 55 H (9-20) mg/dL Creatinine 1.20 (0.66-1.25) mg/dL Est GFR (MDRD) Af Amer >60 (>60 ml/min/1.73 sqM) Est GFR (MDRD) Non-Af >60 (>60 ml/min/1.73 sqM) Glucose 107 H (74-99) mg/dL POC Glucose (mg/dL) 99 (75-99) mg/dL POC Glu Hydro Station Operator ID Carolyn Srivastava Estimated Ave Glu mg/dL mg/dL Hemoglobin A1c (4.2-6.1) % Plasma Lactic Acid Clay (0.7-2.0) mmol/L Calcium 8.6 (8.4-10.2) mg/dL Phosphorus (2.5-4.5) mg/dL Magnesium (1.6-2.3) mg/dL Total Bilirubin 0.6 (0.2-1.3) mg/dL AST 30 (17-59) U/L ALT 33 (21-72) U/L Alkaline Phosphatase 68 (38-126) U/L Total Creatine Kinase (55-170) U/L CK-MB (CK-2) (0.0-2.4) ng/mL CK-MB (CK-2) Rel Index Troponin I (0.000-0.034) ng/mL NT-Pro-B Natriuret Pep pg/mL Total Protein 4.5 L (6.3-8.2) g/dL Albumin 2.3 L (3.5-5.0) g/dL Triglycerides (<150) mg/dL Cholesterol (<200) mg/dL LDL Cholesterol, Calc (0-99) mg/dL HDL Cholesterol (40-60) mg/dL Amylase (30-110) U/L Lipase (23-300) U/L Urine Color Urine Appearance (Clear) Urine pH (5.0-8.0) Ur Specific [place] (1.001-1.035) Urine Protein (Negative) Urine Glucose (UA) (Negative) Urine Ketones (Negative) Urine Blood (Negative) Urine Nitrate (Negative) Urine Bilirubin (Negative) Urine Urobilinogen (<2.0) mg/dL Ur Leukocyte Esterase (Negative) Urine WBC (0-5) /hpf Amorphous Sediment (None) /hpf Hyaline Casts (0-2) /lpf Granular Casts (0) /lpf Urine Mucus (None) /hpf Hepatitis A IgM Ab Hep Bs Antigen Hep B Core IgM Ab Hep C IgG Ab (Negative) 05/12/16 05/12/16 05/12/16 Range/Units 12:11 16:58 21:06 WBC (3.8-10.6) k/uL RBC (4.30-5.90) m/uL Hgb (13.0-17.5) gm/dL Hct (39.0-53.0) % MCV (80.0-100.0) fL MCH (25.0-35.0) pg MCHC (31.0-37.0) g/dL RDW (11.5-15.5) % Plt Count (150-450) k/uL Neutrophils % % Neutrophils % (Manual) % Band Neutrophils % % Lymphocytes % % Lymphocytes % (Manual) % Monocytes % % Monocytes % (Manual) % Eosinophils % % Eosinophils % (Manual) % Basophils % % Metamyelocytes % % Myelocytes % % Neutrophils # (1.3-7.7) k/uL Neutrophils # (Manual) (1.3-7.7) k/uL Lymphocytes # (1.0-4.8) k/uL Lymphocytes # (Manual) (1.0-4.8) k/uL Monocytes # (0-1.0) k/uL Monocytes # (Manual) (0-1.0) k/uL Eosinophils # (0-0.7) k/uL Eosinophils # (Manual) (0-0.7) k/uL Basophils # (0-0.2) k/uL Nucleated RBCs (0-0) /100 WBC Manual Slide Review Toxic Granulation Toxic Vacuolation Large Platelets Polychromasia Hypochromasia Poikilocytosis (manual Basophilic Stippling Anisocytosis Anisocytosis (manual) Macrocytosis PT (9.0-12.0) sec INR (<1.1) APTT (22.0-30.0) sec D-Dimer (<0.60) mg/L FEU Sample Site ABG pH (7.35-7.45) ABG pCO2 (35-45) mmHg ABG pO2 (83-108) mmHg ABG HCO3 (21-25) mmol/L ABG Total CO2 (19-24) mmol/L ABG O2 Saturation (94-97) % ABG Base Excess mmol/L FiO2 % Sodium (137-145) mmol/L Potassium (3.5-5.1) mmol/L Chloride (98-107) mmol/L Carbon Dioxide (22-30) mmol/L Anion Gap mmol/L BUN (9-20) mg/dL Creatinine (0.66-1.25) mg/dL Est GFR (MDRD) Af Amer (>60 ml/min/1.73 sqM) Est GFR (MDRD) Non-Af (>60 ml/min/1.73 sqM) Glucose (74-99) mg/dL POC Glucose (mg/dL) 170 H 167 H 155 H (75-99) mg/dL POC Glu [employer] Station Operator SIDRA Srivastava, Carolyn Srivastava, Carolyn Young, [place] Est[address] Glu mg/dL mg/dL Hemoglobin A1c (4.2-6.1) % Plasma Lactic Acid Clay (0.7-2.0) mmol/L Calcium (8.4-10.2) mg/dL Phosphorus (2.5-4.5) mg/dL Magnesium (1.6-2.3) mg/dL Total Bilirubin (0.2-1.3) mg/dL AST (17-59) U/L ALT (21-72) U/L Alkaline Phosphatase (38-126) U/L Total Creatine Kinase (55-170) U/L CK-MB (CK-2) (0.0-2.4) ng/mL CK-MB (CK-2) Rel Index Troponin I (0.000-0.034) ng/mL NT-Pro-B Natriuret Pep pg/mL Total Protein (6.3-8.2) g/dL Albumin (3.5-5.0) g/dL Triglycerides (<150) mg/dL Cholesterol (<200) mg/dL LDL Cholesterol, Calc (0-99) mg/dL HDL Cholesterol (40-60) mg/dL Amylase (30-110) U/L Lipase (23-300) U/L Urine Color Urine Appearance (Clear) Urine pH (5.0-8.0) Ur Specific [place] (1.001-1.035) Urine Protein (Negative) Urine Glucose (UA) (Negative) Urine Ketones (Negative) Urine Blood (Negative) Urine Nitrate (Negative) Urine Bilirubin (Negative) Urine Urobilinogen (<2.0) mg/dL Ur Leukocyte Esterase (Negative) Urine WBC (0-5) /hpf Amorphous Sediment (None) /hpf Hyaline Casts (0-2) /lpf Granular Casts (0) /lpf Urine Mucus (None) /hpf Hepatitis A IgM Ab Hep Bs Antigen Hep B Core IgM Ab Hep C IgG Ab (Negative) 05/13/16 05/13/16 05/13/16 Range/Units 01:55 06:55 08:01 WBC (3.8-10.6) k/uL RBC (4.30-5.90) m/uL Hgb (13.0-17.5) gm/dL Hct (39.0-53.0) % MCV (80.0-100.0) fL MCH (25.0-35.0) pg MCHC (31.0-37.0) g/dL RDW (11.5-15.5) % Plt Count (150-450) k/uL Neutrophils % % Neutrophils % (Manual) % Band Neutrophils % % Lymphocytes % % Lymphocytes % (Manual) % Monocytes % % Monocytes % (Manual) % Eosinophils % % Eosinophils % (Manual) % Basophils % % Metamyelocytes % % Myelocytes % % Neutrophils # (1.3-7.7) k/uL Neutrophils # (Manual) (1.3-7.7) k/uL Lymphocytes # (1.0-4.8) k/uL Lymphocytes # (Manual) (1.0-4.8) k/uL Monocytes # (0-1.0) k/uL Monocytes # (Manual) (0-1.0) k/uL Eosinophils # (0-0.7) k/uL Eosinophils # (Manual) (0-0.7) k/uL Basophils # (0-0.2) k/uL Nucleated RBCs (0-0) /100 WBC Manual Slide Review Toxic Granulation Toxic Vacuolation Large Platelets Polychromasia Hypochromasia Poikilocytosis (manual Basophilic Stippling Anisocytosis Anisocytosis (manual) Macrocytosis PT (9.0-12.0) sec INR (<1.1) APTT (22.0-30.0) sec D-Dimer (<0.60) mg/L FEU Sample Site ABG pH (7.35-7.45) ABG pCO2 (35-45) mmHg ABG pO2 (83-108) mmHg ABG HCO3 (21-25) mmol/L ABG Total CO2 (19-24) mmol/L ABG O2 Saturation (94-97) % ABG Base Excess mmol/L FiO2 % Sodium 146 H (137-145) mmol/L Potassium 5.8 H (3.5-5.1) mmol/L Chloride 111 H (98-107) mmol/L Carbon Dioxide 26 (22-30) mmol/L Anion Gap 9 mmol/L BUN 57 H (9-20) mg/dL Creatinine 1.29 H (0.66-1.25) mg/dL Est GFR (MDRD) Af Amer >60 (>60 ml/min/1.73 sqM) Est GFR (MDRD) Non-Af 57 (>60 ml/min/1.73 sqM) Glucose 103 H (74-99) mg/dL POC Glucose (mg/dL) 144 H 128 H (75-99) mg/dL POC Glu Hydro Station Operator SIDRA Hector Ginna Atif [address] Glu mg/dL mg/dL Hemoglobin A1c (4.2-6.1) % Plasma Lactic Acid Clay (0.7-2.0) mmol/L Calcium 9.0 (8.4-10.2) mg/dL Phosphorus (2.5-4.5) mg/dL Magnesium (1.6-2.3) mg/dL Total Bilirubin (0.2-1.3) mg/dL AST (17-59) U/L ALT (21-72) U/L Alkaline Phosphatase (38-126) U/L Total Creatine Kinase (55-170) U/L CK-MB (CK-2) (0.0-2.4) ng/mL CK-MB (CK-2) Rel Index Troponin I (0.000-0.034) ng/mL NT-Pro-B Natriuret Pep pg/mL Total Protein (6.3-8.2) g/dL Albumin (3.5-5.0) g/dL Triglycerides (<150) mg/dL Cholesterol (<200) mg/dL LDL Cholesterol, Calc (0-99) mg/dL HDL Cholesterol (40-60) mg/dL Amylase (30-110) U/L Lipase (23-300) U/L Urine Color Urine Appearance (Clear) Urine pH (5.0-8.0) Ur Specific [place] (1.001-1.035) Urine Protein (Negative) Urine Glucose (UA) (Negative) Urine Ketones (Negative) Urine Blood (Negative) Urine Nitrate (Negative) Urine Bilirubin (Negative) Urine Urobilinogen (<2.0) mg/dL Ur Leukocyte Esterase (Negative) Urine WBC (0-5) /hpf Amorphous Sediment (None) /hpf Hyaline Casts (0-2) /lpf Granular Casts (0) /lpf Urine Mucus (None) /hpf Hepatitis A IgM Ab Hep Bs Antigen Hep B Core IgM Ab Hep C IgG Ab (Negative) 05/13/16 05/13/16 05/13/16 Range/Units 08:01 11:52 17:00 WBC (3.8-10.6) k/uL RBC (4.30-5.90) m/uL Hgb (13.0-17.5) gm/dL Hct (39.0-53.0) % MCV (80.0-100.0) fL MCH (25.0-35.0) pg MCHC (31.0-37.0) g/dL RDW (11.5-15.5) % Plt Count (150-450) k/uL Neutrophils % % Neutrophils % (Manual) % Band Neutrophils % % Lymphocytes % % Lymphocytes % (Manual) % Monocytes % % Monocytes % (Manual) % Eosinophils % % Eosinophils % (Manual) % Basophils % % Metamyelocytes % % Myelocytes % % Neutrophils # (1.3-7.7) k/uL Neutrophils # (Manual) (1.3-7.7) k/uL Lymphocytes # (1.0-4.8) k/uL Lymphocytes # (Manual) (1.0-4.8) k/uL Monocytes # (0-1.0) k/uL Monocytes # (Manual) (0-1.0) k/uL Eosinophils # (0-0.7) k/uL Eosinophils # (Manual) (0-0.7) k/uL Basophils # (0-0.2) k/uL Nucleated RBCs (0-0) /100 WBC Manual Slide Review Toxic Granulation Toxic Vacuolation Large Platelets Polychromasia Hypochromasia Poikilocytosis (manual Basophilic Stippling Anisocytosis Anisocytosis (manual) Macrocytosis PT 23.3 H (9.0-12.0) sec INR 2.4 (<1.1) APTT (22.0-30.0) sec D-Dimer (<0.60) mg/L FEU Sample Site ABG pH (7.35-7.45) ABG pCO2 (35-45) mmHg ABG pO2 (83-108) mmHg ABG HCO3 (21-25) mmol/L ABG Total CO2 (19-24) mmol/L ABG O2 Saturation (94-97) % ABG Base Excess mmol/L FiO2 % Sodium (137-145) mmol/L Potassium (3.5-5.1) mmol/L Chloride (98-107) mmol/L Carbon Dioxide (22-30) mmol/L Anion Gap mmol/L BUN (9-20) mg/dL Creatinine (0.66-1.25) mg/dL Est GFR (MDRD) Af Amer (>60 ml/min/1.73 sqM) Est GFR (MDRD) Non-Af (>60 ml/min/1.73 sqM) Glucose (74-99) mg/dL POC Glucose (mg/dL) 102 H 158 H (75-99) mg/dL POC Glu Hydro Station Operator SIDRA Srivastava, [address] Glu mg/dL mg/dL Hemoglobin A1c (4.2-6.1) % Plasma Lactic Acid Clay (0.7-2.0) mmol/L Calcium (8.4-10.2) mg/dL Phosphorus (2.5-4.5) mg/dL Magnesium (1.6-2.3) mg/dL Total Bilirubin (0.2-1.3) mg/dL AST (17-59) U/L ALT (21-72) U/L Alkaline Phosphatase (38-126) U/L Total Creatine Kinase (55-170) U/L CK-MB (CK-2) (0.0-2.4) ng/mL CK-MB (CK-2) Rel Index Troponin I (0.000-0.034) ng/mL NT-Pro-B Natriuret Pep pg/mL Total Protein (6.3-8.2) g/dL Albumin (3.5-5.0) g/dL Triglycerides (<150) mg/dL Cholesterol (<200) mg/dL LDL Cholesterol, Calc (0-99) mg/dL HDL Cholesterol (40-60) mg/dL Amylase (30-110) U/L Lipase (23-300) U/L Urine Color Urine Appearance (Clear) Urine pH (5.0-8.0) Ur Specific [place] (1.001-1.035) Urine Protein (Negative) Urine Glucose (UA) (Negative) Urine Ketones (Negative) Urine Blood (Negative) Urine Nitrate (Negative) Urine Bilirubin (Negative) Urine Urobilinogen (<2.0) mg/dL Ur Leukocyte Esterase (Negative) Urine WBC (0-5) /hpf Amorphous Sediment (None) /hpf Hyaline Casts (0-2) /lpf Granular Casts (0) /lpf Urine Mucus (None) /hpf Hepatitis A IgM Ab Hep Bs Antigen Hep B Core IgM Ab Hep C IgG Ab (Negative) 05/13/16 05/13/16 05/14/16 Range/Units 17:06 21:16 02:02 WBC (3.8-10.6) k/uL RBC (4.30-5.90) m/uL Hgb (13.0-17.5) gm/dL Hct (39.0-53.0) % MCV (80.0-100.0) fL MCH (25.0-35.0) pg MCHC (31.0-37.0) g/dL RDW (11.5-15.5) % Plt Count (150-450) k/uL Neutrophils % % Neutrophils % (Manual) % Band Neutrophils % % Lymphocytes % % Lymphocytes % (Manual) % Monocytes % % Monocytes % (Manual) % Eosinophils % % Eosinophils % (Manual) % Basophils % % Metamyelocytes % % Myelocytes % % Neutrophils # (1.3-7.7) k/uL Neutrophils # (Manual) (1.3-7.7) k/uL Lymphocytes # (1.0-4.8) k/uL Lymphocytes # (Manual) (1.0-4.8) k/uL Monocytes # (0-1.0) k/uL Monocytes # (Manual) (0-1.0) k/uL Eosinophils # (0-0.7) k/uL Eosinophils # (Manual) (0-0.7) k/uL Basophils # (0-0.2) k/uL Nucleated RBCs (0-0) /100 WBC Manual Slide Review Toxic Granulation Toxic Vacuolation Large Platelets Polychromasia Hypochromasia Poikilocytosis (manual Basophilic Stippling Anisocytosis Anisocytosis (manual) Macrocytosis PT (9.0-12.0) sec INR (<1.1) APTT (22.0-30.0) sec D-Dimer (<0.60) mg/L FEU Sample Site ABG pH (7.35-7.45) ABG pCO2 (35-45) mmHg ABG pO2 (83-108) mmHg ABG HCO3 (21-25) mmol/L ABG Total CO2 (19-24) mmol/L ABG O2 Saturation (94-97) % ABG Base Excess mmol/L FiO2 % Sodium (137-145) mmol/L Potassium 5.8 H (3.5-5.1) mmol/L Chloride (98-107) mmol/L Carbon Dioxide (22-30) mmol/L Anion Gap mmol/L BUN (9-20) mg/dL Creatinine (0.66-1.25) mg/dL Est GFR (MDRD) Af Amer (>60 ml/min/1.73 sqM) Est GFR (MDRD) Non-Af (>60 ml/min/1.73 sqM) Glucose (74-99) mg/dL POC Glucose (mg/dL) 150 H 135 H (75-99) mg/dL POC Glu Hydro Station Operator Ginna Rodríguez [address] Glu mg/dL mg/dL Hemoglobin A1c (4.2-6.1) % Plasma Lactic Acid Clay (0.7-2.0) mmol/L Calcium (8.4-10.2) mg/dL Phosphorus (2.5-4.5) mg/dL Magnesium (1.6-2.3) mg/dL Total Bilirubin (0.2-1.3) mg/dL AST (17-59) U/L ALT (21-72) U/L Alkaline Phosphatase (38-126) U/L Total Creatine Kinase (55-170) U/L CK-MB (CK-2) (0.0-2.4) ng/mL CK-MB (CK-2) Rel Index Troponin I (0.000-0.034) ng/mL NT-Pro-B Natriuret Pep pg/mL Total Protein (6.3-8.2) g/dL Albumin (3.5-5.0) g/dL Triglycerides (<150) mg/dL Cholesterol (<200) mg/dL LDL Cholesterol, Calc (0-99) mg/dL HDL Cholesterol (40-60) mg/dL Amylase (30-110) U/L Lipase (23-300) U/L Urine Color Urine Appearance (Clear) Urine pH (5.0-8.0) Ur Specific [place] (1.001-1.035) Urine Protein (Negative) Urine Glucose (UA) (Negative) Urine Ketones (Negative) Urine Blood (Negative) Urine Nitrate (Negative) Urine Bilirubin (Negative) Urine Urobilinogen (<2.0) mg/dL Ur Leukocyte Esterase (Negative) Urine WBC (0-5) /hpf Amorphous Sediment (None) /hpf Hyaline Casts (0-2) /lpf Granular Casts (0) /lpf Urine Mucus (None) /hpf Hepatitis A IgM Ab Hep Bs Antigen Hep B Core IgM Ab Hep C IgG Ab (Negative) 05/14/16 05/14/16 05/14/16 Range/Units 07:06 11:10 11:10 WBC (3.8-10.6) k/uL RBC (4.30-5.90) m/uL Hgb (13.0-17.5) gm/dL Hct (39.0-53.0) % MCV (80.0-100.0) fL MCH (25.0-35.0) pg MCHC (31.0-37.0) g/dL RDW (11.5-15.5) % Plt Count (150-450) k/uL Neutrophils % % Neutrophils % (Manual) % Band Neutrophils % % Lymphocytes % % Lymphocytes % (Manual) % Monocytes % % Monocytes % (Manual) % Eosinophils % % Eosinophils % (Manual) % Basophils % % Metamyelocytes % % Myelocytes % % Neutrophils # (1.3-7.7) k/uL Neutrophils # (Manual) (1.3-7.7) k/uL Lymphocytes # (1.0-4.8) k/uL Lymphocytes # (Manual) (1.0-4.8) k/uL Monocytes # (0-1.0) k/uL Monocytes # (Manual) (0-1.0) k/uL Eosinophils # (0-0.7) k/uL Eosinophils # (Manual) (0-0.7) k/uL Basophils # (0-0.2) k/uL Nucleated RBCs (0-0) /100 WBC Manual Slide Review Toxic Granulation Toxic Vacuolation Large Platelets Polychromasia Hypochromasia Poikilocytosis (manual Basophilic Stippling Anisocytosis Anisocytosis (manual) Macrocytosis PT 58.3 H (9.0-12.0) sec INR 5.8 H* (<1.1) APTT (22.0-30.0) sec D-Dimer (<0.60) mg/L FEU Sample Site ABG pH (7.35-7.45) ABG pCO2 (35-45) mmHg ABG pO2 (83-108) mmHg ABG HCO3 (21-25) mmol/L ABG Total CO2 (19-24) mmol/L ABG O2 Saturation (94-97) % ABG Base Excess mmol/L FiO2 % Sodium 145 (137-145) mmol/L Potassium 5.2 H (3.5-5.1) mmol/L Chloride 106 (98-107) mmol/L Carbon Dioxide 30 (22-30) mmol/L Anion Gap 9 mmol/L BUN 62 H (9-20) mg/dL Creatinine 1.50 H (0.66-1.25) mg/dL Est GFR (MDRD) Af Amer 58 (>60 ml/min/1.73 sqM) Est GFR (MDRD) Non-Af 48 (>60 ml/min/1.73 sqM) Glucose 94 (74-99) mg/dL POC Glucose (mg/dL) 79 (75-99) mg/dL POC Glu Hydro Station Operator ID Ashley [address] Glu mg/dL mg/dL Hemoglobin A1c (4.2-6.1) % Plasma Lactic Acid Clay (0.7-2.0) mmol/L Calcium 8.8 (8.4-10.2) mg/dL Phosphorus (2.5-4.5) mg/dL Magnesium (1.6-2.3) mg/dL Total Bilirubin (0.2-1.3) mg/dL AST (17-59) U/L ALT (21-72) U/L Alkaline Phosphatase (38-126) U/L Total Creatine Kinase (55-170) U/L CK-MB (CK-2) (0.0-2.4) ng/mL CK-MB (CK-2) Rel Index Troponin I (0.000-0.034) ng/mL NT-Pro-B Natriuret Pep pg/mL Total Protein (6.3-8.2) g/dL Albumin (3.5-5.0) g/dL Triglycerides (<150) mg/dL Cholesterol (<200) mg/dL LDL Cholesterol, Calc (0-99) mg/dL HDL Cholesterol (40-60) mg/dL Amylase (30-110) U/L Lipase (23-300) U/L Urine Color Urine Appearance (Clear) Urine pH (5.0-8.0) Ur Specific [place] (1.001-1.035) Urine Protein (Negative) Urine Glucose (UA) (Negative) Urine Ketones (Negative) Urine Blood (Negative) Urine Nitrate (Negative) Urine Bilirubin (Negative) Urine Urobilinogen (<2.0) mg/dL Ur Leukocyte Esterase (Negative) Urine WBC (0-5) /hpf Amorphous Sediment (None) /hpf Hyaline Casts (0-2) /lpf Granular Casts (0) /lpf Urine Mucus (None) /hpf Hepatitis A IgM Ab Hep Bs Antigen Hep B Core IgM Ab Hep C IgG Ab (Negative) 05/14/16 05/14/16 05/14/16 Range/Units 11:59 17:19 20:51 WBC (3.8-10.6) k/uL RBC (4.30-5.90) m/uL Hgb (13.0-17.5) gm/dL Hct (39.0-53.0) % MCV (80.0-100.0) fL MCH (25.0-35.0) pg MCHC (31.0-37.0) g/dL RDW (11.5-15.5) % Plt Count (150-450) k/uL Neutrophils % % Neutrophils % (Manual) % Band Neutrophils % % Lymphocytes % % Lymphocytes % (Manual) % Monocytes % % Monocytes % (Manual) % Eosinophils % % Eosinophils % (Manual) % Basophils % % Metamyelocytes % % Myelocytes % % Neutrophils # (1.3-7.7) k/uL Neutrophils # (Manual) (1.3-7.7) k/uL Lymphocytes # (1.0-4.8) k/uL Lymphocytes # (Manual) (1.0-4.8) k/uL Monocytes # (0-1.0) k/uL Monocytes # (Manual) (0-1.0) k/uL Eosinophils # (0-0.7) k/uL Eosinophils # (Manual) (0-0.7) k/uL Basophils # (0-0.2) k/uL Nucleated RBCs (0-0) /100 WBC Manual Slide Review Toxic Granulation Toxic Vacuolation Large Platelets Polychromasia Hypochromasia Poikilocytosis (manual Basophilic Stippling Anisocytosis Anisocytosis (manual) Macrocytosis PT (9.0-12.0) sec INR (<1.1) APTT (22.0-30.0) sec D-Dimer (<0.60) mg/L FEU Sample Site ABG pH (7.35-7.45) ABG pCO2 (35-45) mmHg ABG pO2 (83-108) mmHg ABG HCO3 (21-25) mmol/L ABG Total CO2 (19-24) mmol/L ABG O2 Saturation (94-97) % ABG Base Excess mmol/L FiO2 % Sodium (137-145) mmol/L Potassium (3.5-5.1) mmol/L Chloride (98-107) mmol/L Carbon Dioxide (22-30) mmol/L Anion Gap mmol/L BUN (9-20) mg/dL Creatinine (0.66-1.25) mg/dL Est GFR (MDRD) Af Amer (>60 ml/min/1.73 sqM) Est GFR (MDRD) Non-Af (>60 ml/min/1.73 sqM) Glucose (74-99) mg/dL POC Glucose (mg/dL) 108 H 82 83 (75-99) mg/dL POC Glu Hydro Station Operator Raysa Lozano Laura Spangenberg, Karen [address] Glu mg/dL mg/dL Hemoglobin A1c (4.2-6.1) % Plasma Lactic Acid Clay (0.7-2.0) mmol/L Calcium (8.4-10.2) mg/dL Phosphorus (2.5-4.5) mg/dL Magnesium (1.6-2.3) mg/dL Total Bilirubin (0.2-1.3) mg/dL AST (17-59) U/L ALT (21-72) U/L Alkaline Phosphatase (38-126) U/L Total Creatine Kinase (55-170) U/L CK-MB (CK-2) (0.0-2.4) ng/mL CK-MB (CK-2) Rel Index Troponin I (0.000-0.034) ng/mL NT-Pro-B Natriuret Pep pg/mL Total Protein (6.3-8.2) g/dL Albumin (3.5-5.0) g/dL Triglycerides (<150) mg/dL Cholesterol (<200) mg/dL LDL Cholesterol, Calc (0-99) mg/dL HDL Cholesterol (40-60) mg/dL Amylase (30-110) U/L Lipase (23-300) U/L Urine Color Urine Appearance (Clear) Urine pH (5.0-8.0) Ur Specific [place] (1.001-1.035) Urine Protein (Negative) Urine Glucose (UA) (Negative) Urine Ketones (Negative) Urine Blood (Negative) Urine Nitrate (Negative) Urine Bilirubin (Negative) Urine Urobilinogen (<2.0) mg/dL Ur Leukocyte Esterase (Negative) Urine WBC (0-5) /hpf Amorphous Sediment (None) /hpf Hyaline Casts (0-2) /lpf Granular Casts (0) /lpf Urine Mucus (None) /hpf Hepatitis A IgM Ab Hep Bs Antigen Hep B Core IgM Ab Hep C IgG Ab (Negative) 05/15/16 05/15/16 05/15/16 Range/Units 02:13 07:51 08:21 WBC (3.8-10.6) k/uL RBC (4.30-5.90) m/uL Hgb (13.0-17.5) gm/dL Hct (39.0-53.0) % MCV (80.0-100.0) fL MCH (25.0-35.0) pg MCHC (31.0-37.0) g/dL RDW (11.5-15.5) % Plt Count (150-450) k/uL Neutrophils % % Neutrophils % (Manual) % Band Neutrophils % % Lymphocytes % % Lymphocytes % (Manual) % Monocytes % % Monocytes % (Manual) % Eosinophils % % Eosinophils % (Manual) % Basophils % % Metamyelocytes % % Myelocytes % % Neutrophils # (1.3-7.7) k/uL Neutrophils # (Manual) (1.3-7.7) k/uL Lymphocytes # (1.0-4.8) k/uL Lymphocytes # (Manual) (1.0-4.8) k/uL Monocytes # (0-1.0) k/uL Monocytes # (Manual) (0-1.0) k/uL Eosinophils # (0-0.7) k/uL Eosinophils # (Manual) (0-0.7) k/uL Basophils # (0-0.2) k/uL Nucleated RBCs (0-0) /100 WBC Manual Slide Review Toxic Granulation Toxic Vacuolation Large Platelets Polychromasia Hypochromasia Poikilocytosis (manual Basophilic Stippling Anisocytosis Anisocytosis (manual) Macrocytosis PT 71.7 H (9.0-12.0) sec INR 7.0 H* (<1.1) APTT (22.0-30.0) sec D-Dimer (<0.60) mg/L FEU Sample Site ABG pH (7.35-7.45) ABG pCO2 (35-45) mmHg ABG pO2 (83-108) mmHg ABG HCO3 (21-25) mmol/L ABG Total CO2 (19-24) mmol/L ABG O2 Saturation (94-97) % ABG Base Excess mmol/L FiO2 % Sodium (137-145) mmol/L Potassium (3.5-5.1) mmol/L Chloride (98-107) mmol/L Carbon Dioxide (22-30) mmol/L Anion Gap mmol/L BUN (9-20) mg/dL Creatinine (0.66-1.25) mg/dL Est GFR (MDRD) Af Amer (>60 ml/min/1.73 sqM) Est GFR (MDRD) Non-Af (>60 ml/min/1.73 sqM) Glucose (74-99) mg/dL POC Glucose (mg/dL) 88 74 L (75-99) mg/dL POC Glu Hydro Station Operator ID Rhonda Bailon [address] Glu mg/dL mg/dL Hemoglobin A1c (4.2-6.1) % Plasma Lactic Acid Clay (0.7-2.0) mmol/L Calcium (8.4-10.2) mg/dL Phosphorus (2.5-4.5) mg/dL Magnesium (1.6-2.3) mg/dL Total Bilirubin (0.2-1.3) mg/dL AST (17-59) U/L ALT (21-72) U/L Alkaline Phosphatase (38-126) U/L Total Creatine Kinase (55-170) U/L CK-MB (CK-2) (0.0-2.4) ng/mL CK-MB (CK-2) Rel Index Troponin I (0.000-0.034) ng/mL NT-Pro-B Natriuret Pep pg/mL Total Protein (6.3-8.2) g/dL Albumin (3.5-5.0) g/dL Triglycerides (<150) mg/dL Cholesterol (<200) mg/dL LDL Cholesterol, Calc (0-99) mg/dL HDL Cholesterol (40-60) mg/dL Amylase (30-110) U/L Lipase (23-300) U/L Urine Color Urine Appearance (Clear) Urine pH (5.0-8.0) Ur Specific [place] (1.001-1.035) Urine Protein (Negative) Urine Glucose (UA) (Negative) Urine Ketones (Negative) Urine Blood (Negative) Urine Nitrate (Negative) Urine Bilirubin (Negative) Urine Urobilinogen (<2.0) mg/dL Ur Leukocyte Esterase (Negative) Urine WBC (0-5) /hpf Amorphous Sediment (None) /hpf Hyaline Casts (0-2) /lpf Granular Casts (0) /lpf Urine Mucus (None) /hpf Hepatitis A IgM Ab Hep Bs Antigen Hep B Core IgM Ab Hep C IgG Ab (Negative) 05/15/16 05/15/16 05/15/16 Range/Units 08:21 12:24 20:41 WBC (3.8-10.6) k/uL RBC (4.30-5.90) m/uL Hgb (13.0-17.5) gm/dL Hct (39.0-53.0) % MCV (80.0-100.0) fL MCH (25.0-35.0) pg MCHC (31.0-37.0) g/dL RDW (11.5-15.5) % Plt Count (150-450) k/uL Neutrophils % % Neutrophils % (Manual) % Band Neutrophils % % Lymphocytes % % Lymphocytes % (Manual) % Monocytes % % Monocytes % (Manual) % Eosinophils % % Eosinophils % (Manual) % Basophils % % Metamyelocytes % % Myelocytes % % Neutrophils # (1.3-7.7) k/uL Neutrophils # (Manual) (1.3-7.7) k/uL Lymphocytes # (1.0-4.8) k/uL Lymphocytes # (Manual) (1.0-4.8) k/uL Monocytes # (0-1.0) k/uL Monocytes # (Manual) (0-1.0) k/uL Eosinophils # (0-0.7) k/uL Eosinophils # (Manual) (0-0.7) k/uL Basophils # (0-0.2) k/uL Nucleated RBCs (0-0) /100 WBC Manual Slide Review Toxic Granulation Toxic Vacuolation Large Platelets Polychromasia Hypochromasia Poikilocytosis (manual Basophilic Stippling Anisocytosis Anisocytosis (manual) Macrocytosis PT (9.0-12.0) sec INR (<1.1) APTT (22.0-30.0) sec D-Dimer (<0.60) mg/L FEU Sample Site ABG pH (7.35-7.45) ABG pCO2 (35-45) mmHg ABG pO2 (83-108) mmHg ABG HCO3 (21-25) mmol/L ABG Total CO2 (19-24) mmol/L ABG O2 Saturation (94-97) % ABG Base Excess mmol/L FiO2 % Sodium 147 H (137-145) mmol/L Potassium 6.3 H* (3.5-5.1) mmol/L Chloride 110 H (98-107) mmol/L Carbon Dioxide 26 (22-30) mmol/L Anion Gap 11 mmol/L BUN 68 H (9-20) mg/dL Creatinine 1.58 H (0.66-1.25) mg/dL Est GFR (MDRD) Af Amer 55 (>60 ml/min/1.73 sqM) Est GFR (MDRD) Non-Af 45 (>60 ml/min/1.73 sqM) Glucose 100 H (74-99) mg/dL POC Glucose (mg/dL) 125 H 202 H (75-99) mg/dL POC Glu [employer] Operator Raysa Lozano [address] Glu mg/dL mg/dL Hemoglobin A1c (4.2-6.1) % Plasma Lactic Acid Clay (0.7-2.0) mmol/L Calcium 9.0 (8.4-10.2) mg/dL Phosphorus (2.5-4.5) mg/dL Magnesium (1.6-2.3) mg/dL Total Bilirubin (0.2-1.3) mg/dL AST (17-59) U/L ALT (21-72) U/L Alkaline Phosphatase (38-126) U/L Total Creatine Kinase (55-170) U/L CK-MB (CK-2) (0.0-2.4) ng/mL CK-MB (CK-2) Rel Index Troponin I (0.000-0.034) ng/mL NT-Pro-B Natriuret Pep pg/mL Total Protein (6.3-8.2) g/dL Albumin (3.5-5.0) g/dL Triglycerides (<150) mg/dL Cholesterol (<200) mg/dL LDL Cholesterol, Calc (0-99) mg/dL HDL Cholesterol (40-60) mg/dL Amylase (30-110) U/L Lipase (23-300) U/L Urine Color Urine Appearance (Clear) Urine pH (5.0-8.0) Ur Specific [place] (1.001-1.035) Urine Protein (Negative) Urine Glucose (UA) (Negative) Urine Ketones (Negative) Urine Blood (Negative) Urine Nitrate (Negative) Urine Bilirubin (Negative) Urine Urobilinogen (<2.0) mg/dL Ur Leukocyte Esterase (Negative) Urine WBC (0-5) /hpf Amorphous Sediment (None) /hpf Hyaline Casts (0-2) /lpf Granular Casts (0) /lpf Urine Mucus (None) /hpf Hepatitis A IgM Ab Hep Bs Antigen Hep B Core IgM Ab Hep C IgG Ab (Negative) 05/16/16 05/16/16 05/16/16 Range/Units 02:14 07:41 08:00 WBC (3.8-10.6) k/uL RBC (4.30-5.90) m/uL Hgb (13.0-17.5) gm/dL Hct (39.0-53.0) % MCV (80.0-100.0) fL MCH (25.0-35.0) pg MCHC (31.0-37.0) g/dL RDW (11.5-15.5) % Plt Count (150-450) k/uL Neutrophils % % Neutrophils % (Manual) % Band Neutrophils % % Lymphocytes % % Lymphocytes % (Manual) % Monocytes % % Monocytes % (Manual) % Eosinophils % % Eosinophils % (Manual) % Basophils % % Metamyelocytes % % Myelocytes % % Neutrophils # (1.3-7.7) k/uL Neutrophils # (Manual) (1.3-7.7) k/uL Lymphocytes # (1.0-4.8) k/uL Lymphocytes # (Manual) (1.0-4.8) k/uL Monocytes # (0-1.0) k/uL Monocytes # (Manual) (0-1.0) k/uL Eosinophils # (0-0.7) k/uL Eosinophils # (Manual) (0-0.7) k/uL Basophils # (0-0.2) k/uL Nucleated RBCs (0-0) /100 WBC Manual Slide Review Toxic Granulation Toxic Vacuolation Large Platelets Polychromasia Hypochromasia Poikilocytosis (manual Basophilic Stippling Anisocytosis Anisocytosis (manual) Macrocytosis PT 35.7 H (9.0-12.0) sec INR 3.7 (<1.1) APTT (22.0-30.0) sec D-Dimer (<0.60) mg/L FEU Sample Site ABG pH (7.35-7.45) ABG pCO2 (35-45) mmHg ABG pO2 (83-108) mmHg ABG HCO3 (21-25) mmol/L ABG Total CO2 (19-24) mmol/L ABG O2 Saturation (94-97) % ABG Base Excess mmol/L FiO2 % Sodium (137-145) mmol/L Potassium (3.5-5.1) mmol/L Chloride (98-107) mmol/L Carbon Dioxide (22-30) mmol/L Anion Gap mmol/L BUN (9-20) mg/dL Creatinine (0.66-1.25) mg/dL Est GFR (MDRD) Af Amer (>60 ml/min/1.73 sqM) Est GFR (MDRD) Non-Af (>60 ml/min/1.73 sqM) Glucose (74-99) mg/dL POC Glucose (mg/dL) 123 H 155 H (75-99) mg/dL POC Glu [employer] Operator ID Rhonda Bailon [address] Glu mg/dL mg/dL Hemoglobin A1c (4.2-6.1) % Plasma Lactic Acid Clay (0.7-2.0) mmol/L Calcium (8.4-10.2) mg/dL Phosphorus (2.5-4.5) mg/dL Magnesium (1.6-2.3) mg/dL Total Bilirubin (0.2-1.3) mg/dL AST (17-59) U/L ALT (21-72) U/L Alkaline Phosphatase (38-126) U/L Total Creatine Kinase (55-170) U/L CK-MB (CK-2) (0.0-2.4) ng/mL CK-MB (CK-2) Rel Index Troponin I (0.000-0.034) ng/mL NT-Pro-B Natriuret Pep pg/mL Total Protein (6.3-8.2) g/dL Albumin (3.5-5.0) g/dL Triglycerides (<150) mg/dL Cholesterol (<200) mg/dL LDL Cholesterol, Calc (0-99) mg/dL HDL Cholesterol (40-60) mg/dL Amylase (30-110) U/L Lipase (23-300) U/L Urine Color Urine Appearance (Clear) Urine pH (5.0-8.0) Ur Specific [place] (1.001-1.035) Urine Protein (Negative) Urine Glucose (UA) (Negative) Urine Ketones (Negative) Urine Blood (Negative) Urine Nitrate (Negative) Urine Bilirubin (Negative) Urine Urobilinogen (<2.0) mg/dL Ur Leukocyte Esterase (Negative) Urine WBC (0-5) /hpf Amorphous Sediment (None) /hpf Hyaline Casts (0-2) /lpf Granular Casts (0) /lpf Urine Mucus (None) /hpf Hepatitis A IgM Ab Hep Bs Antigen Hep B Core IgM Ab Hep C IgG Ab (Negative) 05/16/16 05/16/16 05/16/16 Range/Units 08:00 08:00 10:05 WBC 18.4 H (3.8-10.6) k/uL RBC 2.48 L (4.30-5.90) m/uL Hgb 8.4 L D (13.0-17.5) gm/dL Hct 26.3 L (39.0-53.0) % MCV 106.0 H (80.0-100.0) fL MCH 34.0 (25.0-35.0) pg MCHC 32.1 (31.0-37.0) g/dL RDW 16.4 H (11.5-15.5) % Plt Count 183 (150-450) k/uL Neutrophils % 95 % Neutrophils % (Manual) % Band Neutrophils % % Lymphocytes % 1 % Lymphocytes % (Manual) % Monocytes % 4 % Monocytes % (Manual) % Eosinophils % 0 % Eosinophils % (Manual) % Basophils % 0 % Metamyelocytes % % Myelocytes % % Neutrophils # 17.5 H (1.3-7.7) k/uL Neutrophils # (Manual) (1.3-7.7) k/uL Lymphocytes # 0.2 L (1.0-4.8) k/uL Lymphocytes # (Manual) (1.0-4.8) k/uL Monocytes # 0.7 (0-1.0) k/uL Monocytes # (Manual) (0-1.0) k/uL Eosinophils # 0.0 (0-0.7) k/uL Eosinophils # (Manual) (0-0.7) k/uL Basophils # 0.0 (0-0.2) k/uL Nucleated RBCs (0-0) /100 WBC Manual Slide Review Performed Toxic Granulation Present Toxic Vacuolation Large Platelets Polychromasia Hypochromasia Slight Poikilocytosis (manual Present Basophilic Stippling Anisocytosis Slight Anisocytosis (manual) Macrocytosis Moderate PT (9.0-12.0) sec INR (<1.1) APTT (22.0-30.0) sec D-Dimer (<0.60) mg/L FEU Sample Site RRAD ABG pH 7.49 H (7.35-7.45) ABG pCO2 27 L (35-45) mmHg ABG pO2 154 H (83-108) mmHg ABG HCO3 21 (21-25) mmol/L ABG Total CO2 22 (19-24) mmol/L ABG O2 Saturation 100.0 H (94-97) % ABG Base Excess -2.1 mmol/L FiO2 100 % Sodium 146 H (137-145) mmol/L Potassium 5.6 H (3.5-5.1) mmol/L Chloride 107 (98-107) mmol/L Carbon Dioxide 27 (22-30) mmol/L Anion Gap 12 mmol/L BUN 75 H (9-20) mg/dL Creatinine 1.69 H (0.66-1.25) mg/dL Est GFR (MDRD) Af Amer 51 (>60 ml/min/1.73 sqM) Est GFR (MDRD) Non-Af 42 (>60 ml/min/1.73 sqM) Glucose 143 H (74-99) mg/dL POC Glucose (mg/dL) (75-99) mg/dL POC Glu Hydro Station Operator ID Estimated Ave Glu mg/dL mg/dL Hemoglobin A1c (4.2-6.1) % Plasma Lactic Acid Clay (0.7-2.0) mmol/L Calcium 8.9 (8.4-10.2) mg/dL Phosphorus (2.5-4.5) mg/dL Magnesium (1.6-2.3) mg/dL Total Bilirubin (0.2-1.3) mg/dL AST (17-59) U/L ALT (21-72) U/L Alkaline Phosphatase (38-126) U/L Total Creatine Kinase (55-170) U/L CK-MB (CK-2) (0.0-2.4) ng/mL CK-MB (CK-2) Rel Index Troponin I (0.000-0.034) ng/mL NT-Pro-B Natriuret Pep pg/mL Total Protein (6.3-8.2) g/dL Albumin (3.5-5.0) g/dL Triglycerides (<150) mg/dL Cholesterol (<200) mg/dL LDL Cholesterol, Calc (0-99) mg/dL HDL Cholesterol (40-60) mg/dL Amylase (30-110) U/L Lipase (23-300) U/L Urine Color Urine Appearance (Clear) Urine pH (5.0-8.0) Ur Specific [place] (1.001-1.035) Urine Protein (Negative) Urine Glucose (UA) (Negative) Urine Ketones (Negative) Urine Blood (Negative) Urine Nitrate (Negative) Urine Bilirubin (Negative) Urine Urobilinogen (<2.0) mg/dL Ur Leukocyte Esterase (Negative) Urine WBC (0-5) /hpf Amorphous Sediment (None) /hpf Hyaline Casts (0-2) /lpf Granular Casts (0) /lpf Urine Mucus (None) /hpf Hepatitis A IgM Ab Hep Bs Antigen Hep B Core IgM Ab Hep C IgG Ab (Negative) 05/16/16 05/16/16 05/16/16 Range/Units 12:26 14:20 17:01 WBC (3.8-10.6) k/uL RBC (4.30-5.90) m/uL Hgb (13.0-17.5) gm/dL Hct (39.0-53.0) % MCV (80.0-100.0) fL MCH (25.0-35.0) pg MCHC (31.0-37.0) g/dL RDW (11.5-15.5) % Plt Count (150-450) k/uL Neutrophils % % Neutrophils % (Manual) % Band Neutrophils % % Lymphocytes % % Lymphocytes % (Manual) % Monocytes % % Monocytes % (Manual) % Eosinophils % % Eosinophils % (Manual) % Basophils % % Metamyelocytes % % Myelocytes % % Neutrophils # (1.3-7.7) k/uL Neutrophils # (Manual) (1.3-7.7) k/uL Lymphocytes # (1.0-4.8) k/uL Lymphocytes # (Manual) (1.0-4.8) k/uL Monocytes # (0-1.0) k/uL Monocytes # (Manual) (0-1.0) k/uL Eosinophils # (0-0.7) k/uL Eosinophils # (Manual) (0-0.7) k/uL Basophils # (0-0.2) k/uL Nucleated RBCs (0-0) /100 WBC Manual Slide Review Toxic Granulation Toxic Vacuolation Large Platelets Polychromasia Hypochromasia Poikilocytosis (manual Basophilic Stippling Anisocytosis Anisocytosis (manual) Macrocytosis PT (9.0-12.0) sec INR (<1.1) APTT (22.0-30.0) sec D-Dimer (<0.60) mg/L FEU Sample Site RRAD ABG pH 7.42 (7.35-7.45) ABG pCO2 41 (35-45) mmHg ABG pO2 50 L (83-108) mmHg ABG HCO3 26 H (21-25) mmol/L ABG Total CO2 27 H (19-24) mmol/L ABG O2 Saturation 86.0 L (94-97) % ABG Base Excess 1.9 mmol/L FiO2 60 % Sodium (137-145) mmol/L Potassium (3.5-5.1) mmol/L Chloride (98-107) mmol/L Carbon Dioxide (22-30) mmol/L Anion Gap mmol/L BUN (9-20) mg/dL Creatinine (0.66-1.25) mg/dL Est GFR (MDRD) Af Amer (>60 ml/min/1.73 sqM) Est GFR (MDRD) Non-Af (>60 ml/min/1.73 sqM) Glucose (74-99) mg/dL POC Glucose (mg/dL) 147 H 125 H (75-99) mg/dL POC Glu Hydro Station Operator Raysa Lozano Melinda Estimated Ave Glu mg/dL mg/dL Hemoglobin A1c (4.2-6.1) % Plasma Lactic Acid Clay (0.7-2.0) mmol/L Calcium (8.4-10.2) mg/dL Phosphorus (2.5-4.5) mg/dL Magnesium (1.6-2.3) mg/dL Total Bilirubin (0.2-1.3) mg/dL AST (17-59) U/L ALT (21-72) U/L Alkaline Phosphatase (38-126) U/L Total Creatine Kinase (55-170) U/L CK-MB (CK-2) (0.0-2.4) ng/mL CK-MB (CK-2) Rel Index Troponin I (0.000-0.034) ng/mL NT-Pro-B Natriuret Pep pg/mL Total Protein (6.3-8.2) g/dL Albumin (3.5-5.0) g/dL Triglycerides (<150) mg/dL Cholesterol (<200) mg/dL LDL Cholesterol, Calc (0-99) mg/dL HDL Cholesterol (40-60) mg/dL Amylase (30-110) U/L Lipase (23-300) U/L Urine Color Urine Appearance (Clear) Urine pH (5.0-8.0) Ur Specific [place] (1.001-1.035) Urine Protein (Negative) Urine Glucose (UA) (Negative) Urine Ketones (Negative) Urine Blood (Negative) Urine Nitrate (Negative) Urine Bilirubin (Negative) Urine Urobilinogen (<2.0) mg/dL Ur Leukocyte Esterase (Negative) Urine WBC (0-5) /hpf Amorphous Sediment (None) /hpf Hyaline Casts (0-2) /lpf Granular Casts (0) /lpf Urine Mucus (None) /hpf Hepatitis A IgM Ab Hep Bs Antigen Hep B Core IgM Ab Hep C IgG Ab (Negative) 05/16/16 05/16/16 05/16/16 Range/Units 20:44 22:49 23:37 WBC (3.8-10.6) k/uL RBC (4.30-5.90) m/uL Hgb (13.0-17.5) gm/dL Hct (39.0-53.0) % MCV (80.0-100.0) fL MCH (25.0-35.0) pg MCHC (31.0-37.0) g/dL RDW (11.5-15.5) % Plt Count (150-450) k/uL Neutrophils % % Neutrophils % (Manual) % Band Neutrophils % % Lymphocytes % % Lymphocytes % (Manual) % Monocytes % % Monocytes % (Manual) % Eosinophils % % Eosinophils % (Manual) % Basophils % % Metamyelocytes % % Myelocytes % % Neutrophils # (1.3-7.7) k/uL Neutrophils # (Manual) (1.3-7.7) k/uL Lymphocytes # (1.0-4.8) k/uL Lymphocytes # (Manual) (1.0-4.8) k/uL Monocytes # (0-1.0) k/uL Monocytes # (Manual) (0-1.0) k/uL Eosinophils # (0-0.7) k/uL Eosinophils # (Manual) (0-0.7) k/uL Basophils # (0-0.2) k/uL Nucleated RBCs (0-0) /100 WBC Manual Slide Review Toxic Granulation Toxic Vacuolation Large Platelets Polychromasia Hypochromasia Poikilocytosis (manual Basophilic Stippling Anisocytosis Anisocytosis (manual) Macrocytosis PT (9.0-12.0) sec INR (<1.1) APTT (22.0-30.0) sec D-Dimer (<0.60) mg/L FEU Sample Site ABG pH (7.35-7.45) ABG pCO2 (35-45) mmHg ABG pO2 (83-108) mmHg ABG HCO3 (21-25) mmol/L ABG Total CO2 (19-24) mmol/L ABG O2 Saturation (94-97) % ABG Base Excess mmol/L FiO2 % Sodium 143 (137-145) mmol/L Potassium 6.6 H* (3.5-5.1) mmol/L Chloride 111 H (98-107) mmol/L Carbon Dioxide 22 (22-30) mmol/L Anion Gap 10 mmol/L BUN (9-20) mg/dL Creatinine (0.66-1.25) mg/dL Est GFR (MDRD) Af Amer (>60 ml/min/1.73 sqM) Est GFR (MDRD) Non-Af (>60 ml/min/1.73 sqM) Glucose (74-99) mg/dL POC Glucose (mg/dL) 117 H 112 H (75-99) mg/dL POC Glu Hydro Station Operator ID Rhonda Bailon Samantha Estimated Ave Glu mg/dL mg/dL Hemoglobin A1c (4.2-6.1) % Plasma Lactic Acid Clay (0.7-2.0) mmol/L Calcium (8.4-10.2) mg/dL Phosphorus (2.5-4.5) mg/dL Magnesium (1.6-2.3) mg/dL Total Bilirubin (0.2-1.3) mg/dL AST (17-59) U/L ALT (21-72) U/L Alkaline Phosphatase (38-126) U/L Total Creatine Kinase (55-170) U/L CK-MB (CK-2) (0.0-2.4) ng/mL CK-MB (CK-2) Rel Index Troponin I (0.000-0.034) ng/mL NT-Pro-B Natriuret Pep pg/mL Total Protein (6.3-8.2) g/dL Albumin (3.5-5.0) g/dL Triglycerides (<150) mg/dL Cholesterol (<200) mg/dL LDL Cholesterol, Calc (0-99) mg/dL HDL Cholesterol (40-60) mg/dL Amylase (30-110) U/L Lipase (23-300) U/L Urine Color Urine Appearance (Clear) Urine pH (5.0-8.0) Ur Specific [place] (1.001-1.035) Urine Protein (Negative) Urine Glucose (UA) (Negative) Urine Ketones (Negative) Urine Blood (Negative) Urine Nitrate (Negative) Urine Bilirubin (Negative) Urine Urobilinogen (<2.0) mg/dL Ur Leukocyte Esterase (Negative) Urine WBC (0-5) /hpf Amorphous Sediment (None) /hpf Hyaline Casts (0-2) /lpf Granular Casts (0) /lpf Urine Mucus (None) /hpf Hepatitis A IgM Ab Hep Bs Antigen Hep B Core IgM Ab Hep C IgG Ab (Negative) 05/16/16 Range/Units 23:56 WBC (3.8-10.6) k/uL RBC (4.30-5.90) m/uL Hgb (13.0-17.5) gm/dL Hct (39.0-53.0) % MCV (80.0-100.0) fL MCH (25.0-35.0) pg MCHC (31.0-37.0) g/dL RDW (11.5-15.5) % Plt Count (150-450) k/uL Neutrophils % % Neutrophils % (Manual) % Band Neutrophils % % Lymphocytes % % Lymphocytes % (Manual) % Monocytes % % Monocytes % (Manual) % Eosinophils % % Eosinophils % (Manual) % Basophils % % Metamyelocytes % % Myelocytes % % Neutrophils # (1.3-7.7) k/uL Neutrophils # (Manual) (1.3-7.7) k/uL Lymphocytes # (1.0-4.8) k/uL Lymphocytes # (Manual) (1.0-4.8) k/uL Monocytes # (0-1.0) k/uL Monocytes # (Manual) (0-1.0) k/uL Eosinophils # (0-0.7) k/uL Eosinophils # (Manual) (0-0.7) k/uL Basophils # (0-0.2) k/uL Nucleated RBCs (0-0) /100 WBC Manual Slide Review Toxic Granulation Toxic Vacuolation Large Platelets Polychromasia Hypochromasia Poikilocytosis (manual Basophilic Stippling Anisocytosis Anisocytosis (manual) Macrocytosis PT (9.0-12.0) sec INR (<1.1) APTT (22.0-30.0) sec D-Dimer (<0.60) mg/L FEU Sample Site ABG pH (7.35-7.45) ABG pCO2 (35-45) mmHg ABG pO2 (83-108) mmHg ABG HCO3 (21-25) mmol/L ABG Total CO2 (19-24) mmol/L ABG O2 Saturation (94-97) % ABG Base Excess mmol/L FiO2 % Sodium (137-145) mmol/L Potassium (3.5-5.1) mmol/L Chloride (98-107) mmol/L Carbon Dioxide (22-30) mmol/L Anion Gap mmol/L BUN (9-20) mg/dL Creatinine (0.66-1.25) mg/dL Est GFR (MDRD) Af Amer (>60 ml/min/1.73 sqM) Est GFR (MDRD) Non-Af (>60 ml/min/1.73 sqM) Glucose (74-99) mg/dL POC Glucose (mg/dL) 106 H (75-99) mg/dL POC Glu Hydro Station Operator ID Stanton Burton Estimated Ave Glu mg/dL mg/dL Hemoglobin A1c (4.2-6.1) % Plasma Lactic Acid Clay (0.7-2.0) mmol/L Calcium (8.4-10.2) mg/dL Phosphorus (2.5-4.5) mg/dL Magnesium (1.6-2.3) mg/dL Total Bilirubin (0.2-1.3) mg/dL AST (17-59) U/L ALT (21-72) U/L Alkaline Phosphatase (38-126) U/L Total Creatine Kinase (55-170) U/L CK-MB (CK-2) (0.0-2.4) ng/mL CK-MB (CK-2) Rel Index Troponin I (0.000-0.034) ng/mL NT-Pro-B Natriuret Pep pg/mL Total Protein (6.3-8.2) g/dL Albumin (3.5-5.0) g/dL Triglycerides (<150) mg/dL Cholesterol (<200) mg/dL LDL Cholesterol, Calc (0-99) mg/dL HDL Cholesterol (40-60) mg/dL Amylase (30-110) U/L Lipase (23-300) U/L Urine Color Urine Appearance (Clear) Urine pH (5.0-8.0) Ur Specific [place] (1.001-1.035) Urine Protein (Negative) Urine Glucose (UA) (Negative) Urine Ketones (Negative) Urine Blood (Negative) Urine Nitrate (Negative) Urine Bilirubin (Negative) Urine Urobilinogen (<2.0) mg/dL Ur Leukocyte Esterase (Negative) Urine WBC (0-5) /hpf Amorphous Sediment (None) /hpf Hyaline Casts (0-2) /lpf Granular Casts (0) /lpf Urine Mucus (None) /hpf Hepatitis A IgM Ab Hep Bs Antigen Hep B Core IgM Ab Hep C IgG Ab (Negative) Disposition Clinical Impression: Cardiac arrest Disposition: ADMITTED IP TO THIS HOSP Condition: Critical
[2016-05-17 02:16] VITALS: BP 55/45; PULSE 0
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
[2016-05-19 16:25] LABS: Glucose,Whole Blood 187 mg/dL (75-99)
--- NOTE | 2016-05-19 17:24 | XR ---
EXAMINATION TYPE: XR chest 1V portable DATE OF EXAM: 05/16/2016 11:24 PM COMPARISON: Today HISTORY: Intubation TECHNIQUE: Single frontal view of the chest is obtained. FINDINGS: There is a 5 cm area of masslike infiltrate above the left pulmonary hilum that is new com pared to exam this morning. Endotracheal tube is in good position. There is some linear infiltrate an d atelectasis in the right mid lung. Heart size is normal. There is no pneumothorax. There is no sign of pleural effusion. IMPRESSION: Endotracheal tube is in good position. There are new bilateral upper lobe pulmonary infi ltrates compared to exam earlier today. Follow-up is recommended. No heart failure.
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
== END 2016-05-17 01:45 | disposition expired | DRG 871 ==
LOC: 3OBS 06:00 → OBSVTOIN 04-28 11:46 → 6SEL 04-28 13:26 → 5MS5E 04-30 12:48 → 6SEL 04-30 12:56 → 6ICU 05-04 18:45 → 6SEL 05-08 14:56 → 4MS4W 05-11 15:52 → 6ICU 05-16 23:52
PROVIDERS: ADMIT Hospitalist; ATTEND Hospitalist
DX: A41.9 Sepsis, unspecified organism (principal); N17.0 Acute kidney failure with tubular necrosis; I26.99 Other pulmonary embolism without acute cor pulmonale; G93.41 Metabolic encephalopathy; L89.152 Pressure ulcer of sacral region, stage 2; J96.01 Acute respiratory failure with hypoxia; J96.02 Acute respiratory failure with hypercapnia; I50.33 Acute on chronic diastolic (congestive) heart failure; E87.0 Hyperosmolality and hypernatremia; K85.90 Acute pancreatitis without necrosis or infection, unspecified; E44.0 Moderate protein-calorie malnutrition; D62 Acute posthemorrhagic anemia; I42.9 Cardiomyopathy, unspecified; I13.0 Hypertensive heart and chronic kidney disease with heart failure and stage 1 through stage 4 chronic kidney disease, or unspecified chronic kidney disease; I82.403 Acute embolism and thrombosis of unspecified deep veins of lower extremity, bilateral; J98.11 Atelectasis; R18.8 Other ascites; G82.20 Paraplegia, unspecified; I46.9 Cardiac arrest, cause unspecified; N18.3 Chronic kidney disease, stage 3 (moderate); I48.2 Chronic atrial fibrillation; E11.22 Type 2 diabetes mellitus with diabetic chronic kidney disease; E11.65 Type 2 diabetes mellitus with hyperglycemia; E11.69 Type 2 diabetes mellitus with other specified complication; E78.00 Pure hypercholesterolemia, unspecified; E78.1 Pure hyperglyceridemia; E83.51 Hypocalcemia; E86.9 Volume depletion, unspecified; E87.5 Hyperkalemia; E87.6 Hypokalemia; E87.8 Other disorders of electrolyte and fluid balance, not elsewhere classified; F32.9 Major depressive disorder, single episode, unspecified; F41.9 Anxiety disorder, unspecified; I69.265 Other paralytic syndrome following other nontraumatic intracranial hemorrhage, bilateral; G25.0 Essential tremor; G40.909 Epilepsy, unspecified, not intractable, without status epilepticus; G47.33 Obstructive sleep apnea (adult) (pediatric); G89.29 Other chronic pain; I25.10 Atherosclerotic heart disease of native coronary artery without angina pectoris; I25.2 Old myocardial infarction; I73.9 Peripheral vascular disease, unspecified; J44.9 Chronic obstructive pulmonary disease, unspecified; K21.9 Gastro-esophageal reflux disease without esophagitis; K43.9 Ventral hernia without obstruction or gangrene; K44.9 Diaphragmatic hernia without obstruction or gangrene; M10.9 Gout, unspecified; M47.9 Spondylosis, unspecified; R32 Unspecified urinary incontinence; R79.1 Abnormal coagulation profile; T45.515A Adverse effect of anticoagulants, initial encounter; T50.2X5A Adverse effect of carbonic-anhydrase inhibitors, benzothiadiazides and other diuretics, initial encounter; F44.4 Conversion disorder with motor symptom or deficit; Z79.01 Long term (current) use of anticoagulants; Z79.4 Long term (current) use of insulin; Z82.3 Family history of stroke; Z87.891 Personal history of nicotine dependence; Z99.3 Dependence on wheelchair; Z79.899 Other long term (current) drug therapy; Z79.82 Long term (current) use of aspirin; Z86.73 Personal history of transient ischemic attack (TIA), and cerebral infarction without residual deficits
CPT/HCPCS: 36600; 71010; 71250; 74022; 74176; 76604; 78580; 80048; 80051; 80053; 80061; 80074; 81001; 82150; 82550; 82553; 82805; 83036; 83605; 83690; 83735; 83880; 84100; 84132; 84484; 85025; 85379; 85610; 85730; 87040; 87086; 93005; 93306; 93965; 93970; 94002; 94640; 94660; 94760; 96375